=== PATIENT | male | born 1950 | race Caucasian/White ===

== ENCOUNTER 2017-04-16 11:04 | Outpatient (RCR) | payer MEDICARE, SELFPAY | END 2017-04-23 23:59 | LOC: DC 11:04 | PROVIDERS: Family Provider Family Medicine; PCP Family Medicine; Visit Provider Family Medicine | DX: E11.9 Type 2 diabetes mellitus without complications (principal); N18.9 Chronic kidney disease, unspecified; I65.29 Occlusion and stenosis of unspecified carotid artery; I10 Essential (primary) hypertension; E78.5 Hyperlipidemia, unspecified; Z71.3 Dietary counseling and surveillance | CPT/HCPCS: G0108 ==

== ENCOUNTER 2017-06-07 15:52 | Emergency (ER) | payer OTHER, MEDICARE, SELFPAY ==
[2017-06-07 15:53] VITALS: BP 172/92; PULSE 64; RESP 16; TEMP 36.1; O2SAT 99; BMI 30.7
--- NOTE | 2017-06-07 16:18 | ED.VISSUMM ---
- ER Visit Summary Date of Service: 06/07/17 Chief Complaint: Right shoulder pain History of Present Illness: The patient is a 66 M presenting with right shoulder pain. Patient states he was at a movie theater. He went to sit down in the chair and hit his right shoulder on the chair. This occurred 1 hour prior to arrival. He did not take any medications for pain. No other injuries. Physical Examination: Vitals are stable. Patient is afebrile. Alert no acute distress. HEENT exam is unremarkable. Neck is nontender Lungs are clear and equal bilaterally. Heart is regular rate and rhythm. Extremities are right anterior shoulder tenderness with AFROM, NVID Skin is warm and dry. No focal neurologic deficit. Remainder of exam is unremarkable. Emergency Department Course and Treatment: Patient was given Tylenol p.o. Right shoulder x-ray shows no acute process. Patient is advised to ice. Advised to follow-up with primary care physician. Advised return ED if worsening complaints. Disposition: Discharge home Impression: Right shoulder contusion This note was generated with [employer] dictation software. It may contain incorrect words, spelling, and punctuation that were not noted in review of the chart prior to signing ED Disposition - Plan for ED Patient: Chief Complaint: Upper Extremity Injury Referrals: Issa Trinidad MD [Primary Care Provider] -
--- NOTE | 2017-06-07 16:20 | RAD_ITS ---
STUDY: X-RAY - RIGHT SHOULDER REASON FOR EXAM: Male, 66 years old. Right-sided shoulder pain. TECHNIQUE: 2 view(s) of the shoulder. COMPARISON: Radiographs of the right shoulder dated December 09, 2016. FINDINGS: There is mild degenerative arthrosis of the glenohumeral articulation. There is hypertrophic osteoarthrosis of the acromioclavicular joint with inferior osseous spur formation. Normal acromion. There is an acromial spur. There is demineralization of the humerus and visualized osseous structures. The soft tissue structures are unremarkable. There is no demonstrated fracture. Normal visualized pulmonary apex. RAD/Shoulder min 2 Views IMPRESSION: Degenerative arthropathy of the right shoulder. Electronically Signed: Yumiko Best MD at 16:47 EDT , Service support ,
--- NOTE | 2017-06-07 16:57 | ED.DEP ---
ED Disposition - Plan for ED Patient: Chief Complaint: Upper Extremity Injury Instructions: ED Contusion Upper Ext Referrals: Issa Trinidad MD [Primary Care Provider] -
[2017-06-07 17:06] VITALS: BP 139/77; PULSE 61; RESP 15; O2SAT 97
== END 2017-06-07 17:07 | disposition home or self-care (01) ==
LOC: ED 17:02
PROVIDERS: Emergency Provider Emergency Medicine; Family Provider Family Medicine; PCP Family Medicine
DX: S40.011A Contusion of right shoulder, initial encounter (principal); W22.03XA Walked into furniture, initial encounter; Y93.89 Activity, other specified; Y92.26 Movie house or cinema as the place of occurrence of the external cause; Y99.9 Unspecified external cause status; E11.9 Type 2 diabetes mellitus without complications; I10 Essential (primary) hypertension; E78.00 Pure hypercholesterolemia, unspecified; I48.91 Unspecified atrial fibrillation
CPT/HCPCS: 73030; 99282

== ENCOUNTER 2017-06-16 10:14 | Emergency (ER) | payer OTHER, MEDICARE, SELFPAY ==
[2017-06-16 10:17] VITALS: BP 138/79; PULSE 66; RESP 17; TEMP 36.4; O2SAT 97; BMI 32.3
--- NOTE | 2017-06-16 10:42 | NURSING ---
NO LW OR POA
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
--- NOTE | 2017-06-16 10:50 | NURSING ---
NO LW OR POA
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
[2017-06-16 11:58] VITALS: PULSE 58; RESP 17; O2SAT 97
== END 2017-06-16 11:58 | disposition home or self-care (01) ==
PROVIDERS: Emergency Provider Emergency Medicine; Family Provider Family Medicine; PCP Family Medicine
DX: S39.012A Strain of muscle, fascia and tendon of lower back, initial encounter (principal); V89.2XXA Person injured in unspecified motor-vehicle accident, traffic, initial encounter; Y93.9 Activity, unspecified; Y92.488 Other paved roadways as the place of occurrence of the external cause; Y99.9 Unspecified external cause status; M25.551 Pain in right hip; E11.9 Type 2 diabetes mellitus without complications; I10 Essential (primary) hypertension; E78.00 Pure hypercholesterolemia, unspecified; F31.9 Bipolar disorder, unspecified; I48.91 Unspecified atrial fibrillation
CPT/HCPCS: 72040; 72072; 72170; 99282

== ENCOUNTER 2017-07-16 12:57 | Emergency (ER) | payer MEDICARE, SELFPAY ==
[2017-07-16 12:57] VITALS: BP 118/72; PULSE 52; RESP 16; TEMP 36.3; O2SAT 94; BMI 30.8
--- NOTE | 2017-07-16 13:53 | EKG12_ITS ---
Test Reason : WEAKNESS Blood Pressure : / mmHG Vent. Rate : 062 BPM Atrial Rate : 062 BPM P-R Int : 234 ms QRS Dur : 112 ms QT Int : 432 ms P-R-T Axes : 046 -04 103 degrees QTc Int : 438 ms Sinus rhythm with 1st degree A-V block Incomplete left bundle branch block Nonspecific ST and T wave abnormality Abnormal ECG Confirmed by GRETA JASON, CHARI ([id number]), purchase request editor TERESA BOWEN ([id number]) on 07/18/2017 1:02:20 PM Referred By: AIMEE Confirmed By:CHARI HERNANDES MD
--- NOTE | 2017-07-16 13:57 | ED.DCSUM_ITS ---
- ER Visit Summary Date of Service: 07/16/17 Chief Complaint: Generalized weakness History of Present Illness: The patient is a 66 M 3 of A. fib, insulin- dependent diabetes and hypertension. Patient states he just felt generally weak and fatigued last several days. He denies nausea, vomiting or diarrhea. He had mild constipation but had normal bowel movement today. No melena. No chest pain or shortness of breath. No abdominal pain. States he has been eating and drinking. Denies any fever. Physical Examination: Well appearing older male. Vital signs are stable afebrile. Pulse ox 94% on room air no signs of hypoxia. No distress. HEENT exam unremarkable. No facial droop. Normal speech. Neck nontender. Lungs clear to auscultation bilaterally. Heart regular rhythm rate about 50. No murmur. Abdomen soft nontender Ranulfo no giving or masses. Normal bowel sounds no peritoneal signs. Moving all 4 extremities. Neurovascularly intact. Calves nontender, no edema or cords. Neurologically he is awake and alert with no focal motor or sensory deficits. Diet score is 0. Test Results: CBC is normal. H&H of 13 and 40. BMP shows chronic renal insufficiency with a creatinine of 2. Emergency Department Course and Treatment: Clinically the patient looks good. I will check screening labs but his physical exam is unremarkable. Treatment Plan: Repeat exam patient is doing well at 1615. Will be discharged home. Disposition: Discharge Impression: Acute generalized weakness of uncertain etiology Chronic renal insufficiency This note was generated with [employer] dictation software. It may contain incorrect words, spelling, and punctuation that were not noted in review of the chart prior to signing ED Disposition - Plan for ED Patient: Chief Complaint: Weakness Referrals: Issa Trinidad MD [Primary Care Provider] -
[2017-07-16 14:46] LABS: Hematocrit 40.3 % (40-54); Mean Corp Hgb Conc 32.3 g/gl (32-36); Mean Corpuscular Hgb 32.3 pg (27.0-32.0); Mean Corpuscular Volume 100.2 fL (80-94); Mean Platelet Vol. 9.7 fl (6.2-12.0); Platelet Count 207 K/mm3 (150-450); RBC Distribution Width CV 14.1 % (11.6-14.6); RBC Distribution Width SD 51.7 fl (35.1-43.9); Red Blood Count 4.02 M/mm3 (4.6-6.2); White Blood Count 11.2 K/mm3 (4.4-11.0)
[2017-07-16 14:47] LABS: Scan Indicated on CBC? Y/N NO
[2017-07-16 14:57] LABS: Anion Gap 6 (5-15); BUN 37 mg/dL (7-18); Calcium,Total 9.5 mg/dL (8.5-10.1); Chloride 102 mmol/L (98-107); Creatinine, Serum 2.05 mg/dL (0.70-1.30); EST Glomerular Filtration Rate 34 mL/min (>60); Est Glom Filt Rate - Afr Amer 42 mL/min (>60); Estimated Creatinine Clearance 35.61 ml/min; Glucose 185 mg/dL (74-106); Potassium 4.3 mmol/L (3.5-5.1); Sodium Level 137 mmol/L (136-145)
[2017-07-16 16:01] VITALS: BP 153/88; PULSE 64; RESP 18; O2SAT 95
--- NOTE | 2017-07-16 16:19 | ED.DEP ---
ED Disposition - Plan for ED Patient: Disposition: Home or Assisted Living Chief Complaint: Weakness Instructions: ED Weakness [facility] Referrals: Issa Trinidad MD [Primary Care Provider] - 3-5 Days if not improving
[2017-07-16 16:24] VITALS: BP 121/74; PULSE 67; RESP 15; O2SAT 98
== END 2017-07-16 16:25 | disposition home or self-care (01) ==
PROVIDERS: Emergency Provider Emergency Medicine; Family Provider Family Medicine; PCP Family Medicine
DX: R53.1 Weakness (principal); E11.9 Type 2 diabetes mellitus without complications; I12.9 Hypertensive chronic kidney disease with stage 1 through stage 4 chronic kidney disease, or unspecified chronic kidney disease; N18.9 Chronic kidney disease, unspecified; I48.91 Unspecified atrial fibrillation; Z79.4 Long term (current) use of insulin
CPT/HCPCS: 80048; 85027; 93005; 99283; A4216

== ENCOUNTER 2017-09-01 14:07 | Outpatient (RCR) | payer MEDICARE, MEDICAID, SELFPAY ==
--- NOTE | 2017-09-01 14:07 | DT_ITS ---
This patient was seen during an EMR downtime August 25, 2017 - September 01, 2017. This patient may have a combination of paper and electronic documentation or all paper documentation. All documentation is viewable within the e-chart portion of [facility] for each patient visit.
== END 2017-09-11 23:59 ==
LOC: DC 14:07
PROVIDERS: Family Provider Family Medicine; PCP Family Medicine; Visit Provider Nurse Practitioner Family
DX: E11.9 Type 2 diabetes mellitus without complications (principal); Z71.3 Dietary counseling and surveillance
CPT/HCPCS: 97802; G0108

== ENCOUNTER 2017-09-16 15:50 | Emergency (ER) | payer MEDICARE, MEDICAID, SELFPAY ==
[2017-09-16 15:50] VITALS: BP 132/81; PULSE 76; RESP 16; TEMP 36.3; O2SAT 94; BMI 33.4
--- NOTE | 2017-09-16 16:20 | ED.VISSUMM ---
- ER Visit Summary Date of Service: 09/16/17 Chief Complaint: Fall History of Present Illness: The patient is a 66 M with a mechanical fall about 4 hours ago. He fell backwards he hit the back of his head, however first he hit his back. No loss consciousness no bruising no scalp laceration. He has no neck pain. He has no neurological symptoms or weakness. Physical Examination: Not appear in acute distress. Moist mucous membranes, no obvious facial deformity No C-spine tenderness supple neck. Regular rate and rhythm without any obvious murmurs Clear lungs bilaterally speaking in full sentences without any obvious respiratory distress Abdomen soft and nontender no guarding or rebound Moves all extremities without any difficulty or pain. Skin does not show any obvious rashes or lesions, no trauma. Alert oriented ?3 with no gross focal deficit. He does have a shuffled gait which is chronic. He walks with a cane. Emergency Department Course and Treatment: Patient appears well. He did not have loss consciousness, he has a normal neurological exam I do not think any imaging is needed at this time. He is under close observation at home. If he worsens he will be brought back in. Disposition: Discharge in stable condition Impression: Closed head injury This note was generated with [employer] dictation software. It may contain incorrect words, spelling, and punctuation that were not noted in review of the chart prior to signing ED Disposition - Plan for ED Patient: Disposition: Home or Assisted Living Chief Complaint: Fall Instructions: ED Mechanical Fall Referrals: Issa Trinidad MD [Primary Care Provider] -
--- NOTE | 2017-09-16 16:52 | NURSING ---
sister called in whos poa and concerned over pt freq falling and dementia. cm aware and will be in to offer support.
[2017-09-16] MEDS: Acetaminophen 325 MG Tablet 650 MG PO (17:27)
--- NOTE | 2017-09-16 17:45 | CM.ED ---
Addendum entered by Dottie Whitaker 09/17/17 10:28: Patient's [id number], Jeffrey Cardoso, offers his contact information: [phone] (cell phone). Original Note: CM INITIAL ASSESSMENT: CM referred to discuss DME and safe discharge planning with patient and family. Patient's [id number], Jeffrey Cardoso, is at bedside to assist with answering questions. Home: Patient lives with his sister, Em Rose. They lives in a three story home. He has first floor setup. He denies problems with stairs, although his visitor states he slipped down stairs the other day. HHS/Aides: Patient states he had outpatient therapy and felt he was getting stronger. He states this was cancelled though. Patient states he does not drive. His sister usually drives him; however, she is now incapacitated and unable to drive him. Patient is agreeable to home health care referral, with [facility]. DME: Patient states he uses a cane. He fell today. Patient's [id number], Jeffrey Cardoso, states he feels the patient is unsteady and would benefit from a walker. [employer] script, [id number] completed and faxed. Encouraged patient and family that a shower chair may also be of benefit. Home Oxygen: Denies. Pharmacy: [facility] Advance Directives: Patient states he does have advance directives. He states his medical POA is his younger sister, Em Rose. This has not been verified. PCP: Issa Trinidad - Patient states he has a scheduled appointment to see PCP tomorrow. Specialists: Patient states he has bipolar disorder and is a patient at the counseling center. His residential case manager at the counseling center is Mr. Thurman. DC Plan: Home with walker and PT/OT through [facility]. CM will continue to follow for safe and effective discharge planning.
--- NOTE | 2017-09-17 09:41 | CM.ED ---
LIZ INITIAL ASSESSMENT: Home: Patient lives HHS/Aides: DME: Home Oxygen: Pharmacy: [facility] Directives: PCP: Specialists: DC Plan: CM will continue to follow for safe and effective discharge planning.
--- NOTE | 2017-09-17 10:37 | CM.ED ---
Call placed to patient. Patient states he does have his walker and is using it. He notified that [facility] will be in contact with him today. Patient states he is leaving soon for his appointment with Dr. Trinidad. Call placed to Jeffrey Cardoso, patient's [id number]. Voicemail left with updates. Call placed to patient's sister, Ann Marie Cardoso. No answer and voicemail box full. Taylor, from [facility], updated.
== END 2017-09-16 17:45 | disposition home or self-care (01) ==
PROVIDERS: Emergency Provider Emergency Medicine; Family Provider Family Medicine; PCP Family Medicine
DX: S09.90XA Unspecified injury of head, initial encounter (principal); W17.89XA Other fall from one level to another, initial encounter; Y93.9 Activity, unspecified; Y92.89 Other specified places as the place of occurrence of the external cause; Y99.9 Unspecified external cause status; E11.9 Type 2 diabetes mellitus without complications; F20.9 Schizophrenia, unspecified; F31.9 Bipolar disorder, unspecified
CPT/HCPCS: 99281

== ENCOUNTER 2017-10-02 09:14 | Emergency (ER) | payer MEDICARE, MEDICAID, SELFPAY ==
[2017-10-02 09:15] VITALS: BP 152/93; PULSE 58; RESP 16; TEMP 36.7; BMI 30.9
[2017-10-02 10:16] VITALS: BP 128/70; PULSE 57; RESP 13; O2SAT 92
--- NOTE | 2017-10-02 10:47 | ED.DCSUM_ITS ---
- ER Visit Summary Date of Service: 10/02/17 Chief Complaint: Fall History of Present Illness: The patient is a 66 M with a fall just prior to arrival. He has had more falls recently. He is being taken care of by his sister at home. She tells me she could not pick them up. She did not witness the episode but patient is a good historian there are no injuries. He denies head injury, loss of consciousness. I saw the patient for similar symptoms last time he was here. Physical Examination: Not appear in acute distress. Moist mucous membranes, no obvious facial deformity No C-spine tenderness supple neck. Regular rate and rhythm without any obvious murmurs Clear lungs bilaterally speaking in full sentences without any obvious respiratory distress Abdomen soft and nontender no guarding or rebound Moves all extremities without any difficulty or pain. Skin does not show any obvious rashes or lesions, no trauma. Alert oriented ?3 with no gross focal deficit Emergency Department Course and Treatment: Patient was monitored in the emergency department and he ambulated well Sister wants to take him home, apparently they met with the neurologist last week and have MRI scheduled in a few days. Patient did say that he will use his walker which he did not today and will be more careful. Disposition: Discharge in stable condition Impression: Mechanical fall This note was generated with [employer] dictation software. It may contain incorrect words, spelling, and punctuation that were not noted in review of the chart prior to signing ED Disposition - Plan for ED Patient: Disposition: Home or Assisted Living Chief Complaint: Fall Instructions: ED Mechanical Fall Referrals: Issa Trinidad MD [Primary Care Provider] - 2 Days
--- NOTE | 2017-10-02 10:48 | ED.DCSUM_ITS ---
- ER Visit Summary Date of Service: 10/02/17 Chief Complaint: [] History of Present Illness: The patient is a 66 M [] Physical Examination: [] Test Results: [] Emergency Department Course and Treatment: [] Treatment Plan: [] Disposition: [] Impression: [] This note was generated with [employer] dictation software. It may contain incorrect words, spelling, and punctuation that were not noted in review of the chart prior to signing ED Disposition - Plan for ED Patient: Disposition: Home or Assisted Living Chief Complaint: Fall Instructions: ED Mechanical Fall Referrals: Issa Trinidad MD [Primary Care Provider] - 2 Days
[2017-10-02 10:52] VITALS: BP 144/76; PULSE 63; RESP 18
== END 2017-10-02 10:53 | disposition home or self-care (01) ==
PROVIDERS: Emergency Provider Emergency Medicine; Family Provider Family Medicine; PCP Family Medicine
DX: Z04.3 Encounter for examination and observation following other accident (principal); W01.0XXA Fall on same level from slipping, tripping and stumbling without subsequent striking against object, initial encounter; Y93.9 Activity, unspecified; Y92.89 Other specified places as the place of occurrence of the external cause; Y99.9 Unspecified external cause status; E11.9 Type 2 diabetes mellitus without complications; F31.9 Bipolar disorder, unspecified; F20.9 Schizophrenia, unspecified
CPT/HCPCS: 99284

== ENCOUNTER 2017-11-19 01:48 | Inpatient (IN) | payer MEDICARE, MEDICAID, SELFPAY ==
[2017-11-19] VITALS (29 sets, daily range): BP systolic 111–202; BP diastolic 52–112; PULSE 59–85; RESP 10–24; TEMP 36.4–36.8; O2SAT 91–100; BMI 32.1; BMI 31.8; BMI 31.9
--- NOTE | 2017-11-19 01:59 | ED.VISSUMM ---
- ER Visit Summary Date of Service: 11/19/17 Chief Complaint: Chest pain History of Present Illness: The patient is a 66 M who presents with 4 days of anterior chest pain. Patient states he came to the emergency room tonight because he could not get the pain to go away. He been trying to rub some creams on his chest or using a hot water bottle. He was seen by a nurse practitioner at his PCPs office today. Patient states they listen to his heart but did not do an EKG. History significant for diabetes, hypertension, high cholesterol, A. fib, bipolar disorder, TBI. Patient is not currently on anticoagulants. Physical Examination: Vital signs on arrival include a blood pressure of 201/110, temperature 97.7, heart rate 78, respiratory rate 24, pulse ox 95% on room air. Patient sitting upright in bed. He appears uncomfortable but he is in no acute distress. Heart is regular rate and rhythm. Lung sounds are clear. Abdomen is soft and nontender. Extremity examination reveals strong distal pulses throughout. Test Results: EKG reveals sinus rhythm at [address] elevation and inferior depression consistent with an acute anterior STEMI. Emergency Department Course and Treatment: STEMI alert was called. Labs are currently pending at this time. Patient has received aspirin, Brilinta, heparin. Due to his elevated blood pressure he was given sublingual nitroglycerin. I spoke with Dr. Nguyen and It Application Administrator team is en route. Treatment Plan: [] Disposition: Admit Impression: Acute anterior STEMI This note was generated with [employer] dictation software. It may contain incorrect words, spelling, and punctuation that were not noted in review of the chart prior to signing ED Disposition - Plan for ED Patient: Chief Complaint: Chest Pain Referrals: Issa Trinidad MD [Primary Care Provider] -
[2017-11-19] MEDS: 0.9% Normal Saline 1,000 ML 150 ML IV ×2 (02:01→04:00)
[2017-11-19] MEDS: Aspirin 81 MG TAB.CHEW 324 MG PO (02:02)
[2017-11-19] MEDS: Heparin Injection (Vial) 5,000 UNIT/ML VIAL 4000 UNIT IV (02:03)
[2017-11-19] MEDS: TICAGRELOR 90 MG TABLET 180 MG PO (02:03)
--- NOTE | 2017-11-19 02:03 | ED.RN ---
PT SISTER RISHI PHONE NUMBER [phone]. RISHI CONTACTED AND INFORMED OF PT STATUS BY PT REQUEST.
--- NOTE | 2017-11-19 02:05 | PCM.HP.STD ---
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 Range 58-200+ He does have a pattern of waking with low Bg. Will reduce his pm lantus today and have him call back office with any further low BG. Reports taking insulin as directed as well as his oral agents. Is due for labs and I have ask him to do these today or tomorrow. BP recheck 134/76 (3) Bipolar disorder Status: Chronic Qualifiers: Active/Remission status: remission status unspecified Qualified Code(s): F31.9 - Bipolar disorder, unspecified (4) Atrial fibrillation Status: Suspected Qualifiers: Atrial fibrillation type: paroxysmal Qualified Code(s): I48.0 - Paroxysmal atrial fibrillation (5) Hyperlipidemia Status: Chronic Qualifiers: Hyperlipidemia type: pure hypercholesterolemia Qualified Code(s): E78.00 - Pure hypercholesterolemia, unspecified; E78.0 - Pure hypercholesterolemia (6) Neuropathy Status: Chronic (7) Hypertension Status: Chronic Qualifiers: Hypertension type: essential hypertension Qualified Code(s): I10 - Essential (primary) hypertension (8) Gout Status: Chronic Qualifiers: Gout site: unspecified site Gout etiology: unspecified cause Chronicity: unspecified Qualified Code(s): M10.9 - Gout, unspecified (9) Traumatic brain injury Status: Chronic (10) Arthritis Status: Chronic History of Present Illness Date of Admission: 11/19/17 Chief Complaint: Chest pain The patient is a 66 y/o M w/ PMHx: PAF previously on coumadin, Hypothyroidism, HTN, HLD, Obesity, Fe Deficiency Anemia, Diabetes mellitus type II, Bipolar Disorder/Schizophrenia, Hx TBI who presents to the [facility] ED on 11/19/17 with history of onset 4.5 days prior substernal chest tightness, pressure and squeezing sensation without radiation with associated dyspnea, noted to be constant, rated currently 10/10 prompting eventual ED presentation. In the ED work-up included T 97.7, heart rate 80, BP 202/109, respiratory rate 24, 95% on room air, pending CBC, coags, BMP, troponin, EKG with evidence of an anterior STEMI, chest x-ray pending. Cardiology immediately consulted given STEMI findings with decision for administration of Brilinta load, heparin bolus, aspirin therapy with plan to transition to the cardiac catheterization lab. Cardiology requested sublingual nitroglycerin administration given elevated blood pressure with possible need for transition to drip pending repeat blood pressure assessments. Past Medical History Past Medical History (Chronic Problems): Chronic Problems (Last Reviewed 03/25/17 @ 14:24 by Scarlett Wharton) Diabetes mellitus, type II (Chronic) BG readings checked at various times of day. Range 58-200+ He does have a pattern of waking with low Bg. Will reduce his pm lantus today and have him call back office with any further low BG. Reports taking insulin as directed as well as his oral agents. Is due for labs and I have ask him to do these today or tomorrow. BP recheck 134/76 Bipolar disorder (Chronic) Hyperlipidemia (Chronic) Neuropathy (Chronic) Hypertension (Chronic) Gout (Chronic) Traumatic brain injury (Chronic) Arthritis (Chronic) Medical History: Medical History (Last Reviewed 03/25/17 @ 14:24 by Scarlett Wharton) Afib I48.91 Anxiety F41.9 Arthritis M19.90 Back problem M53.9 Cataracts, bilateral H26.9 Depression F32.9 Diabetes type 2, controlled E11.9 GI problem R19.8 Headache R51 Heart disease I51.9 High cholesterol E78.00 Kidney disease N28.9 Osteoarthritis M19.90 Recurrent UTI N39.0 Seasonal allergies J30.2 HTN (hypertension) I10 Allergies atorvastatin [From Lipitor] Allergy (Verified 09/16/17 15:54) Unknown Penicillins Allergy (Verified 09/16/17 15:54) Unknown codeine Adverse Reaction (Verified 09/16/17 15:54) Upset Stomach doxycycline Adverse Reaction (Verified 09/16/17 15:54) Other LYCOPEEN Adverse Reaction (Uncoded 09/16/17 15:54) Other 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 Adverse Reaction (Uncoded 09/16/17 15:54) Rash Home Medications: Ambulatory Orders Medication Instructions Recorded Divalproex Sodium [Depakote] 1,500 mg PO BID 01/11/13 Glimepiride [Glimepiride] 2 mg PO DAILY 01/21/16 Allopurinol [Zyloprim] 300 mg PO DAILY 04/09/16 Amlodipine [Norvasc] 10 mg PO DAILY 04/09/16 Esomeprazole Magnesium [Nexium 20 mg PO DAILY 04/09/16 24Hr] Ferrous Sulfate [Iron] 325 mg PO DAILY 04/09/16 Flecainide [Tambocor] 150 mg PO DAILY 04/09/16 Gabapentin [Neurontin] 900 mg PO DAILY 04/09/16 Losartan Potassium [Cozaar] 50 mg PO QHS 04/09/16 Meloxicam [Mobic] 15 mg PO DAILY 04/09/16 Levothyroxine [Synthroid] 100 mcg PO DAILY 09/07/16 Metoprolol Succinate 25 mg PO DAILY 09/07/16 Multivitamin [Daily Multiple 1 tab PO DAILY 09/07/16 Vitamin] Oxybutynin [Ditropan] 5 mg PO DAILY 09/07/16 aspirin 81 mg tablet,delayed 81 mg PO QDAY 02/27/17 release betamethasone dipropionate 0.05 % 1 applic TOPICAL BID 02/27/17 lotion clindamycin phosphate 1 % topical 1 applic TOPICAL BID 02/27/17 swab diclofenac 1 % topical gel 2 g TOPICAL TID g 02/27/17 dulaglutide 0.75 mg/0.5 mL 0.75 mg SC QWEEK 02/27/17 subcutaneous pen injector fluticasone 50 mcg/actuation nasal 2 spray INTRANASAL QDAY 02/27/17 spray,suspension insulin detemir (U-100) 100 40 unit SC BID ml 02/27/17 unit/mL (3 mL) subcutaneous pen metformin 500 mg tablet 500 mg PO BID tab 02/27/17 nitroglycerin 0.4 mg sublingual 0.4 mg SUBLINGUAL Q5M PRN 02/27/17 tablet oxcarbazepine 300 mg tablet 300 mg PO BID 02/27/17 polyethylene glycol 3350 17 17 g PO QDAY PRN 02/27/17 gram/dose oral powder tizanidine 2 mg capsule 2 mg PO Q6H PRN cap 02/27/17 tramadol 50 mg tablet 50 mg PO Q8H PRN tab 02/27/17 triamcinolone acetonide 0.1 % 1 applic TOPICAL TID 02/27/17 topical cream Surgical History: - - Cardiac catheterization, T+A, R cataract, L shoulder surgery, R TKR. Psychiatric History: Bipolar, Schizophrenia Lives: With Family Smoking Status: Never smoker Tobacco Use: Non-smoker Alcohol: None Drugs: None - *Family History Maternal Family History: Family History (Last Reviewed 03/25/17 @ 14:24 by Scarlett Wharton) Father Arthritis Bleeding disorder Heart disease Hypertension Mother Hypertension History Items: - - Mother with a history of hypertension. Paternal Family History: Family History (Last Reviewed 03/25/17 @ 14:24 by Scarlett Wharton) Father Arthritis Bleeding disorder Heart disease Hypertension Mother Hypertension History Items: - - Father with a history of heart disease, coronary disease status post CABG ?2. Review of Systems Constitutional: Reports: Malaise, Weakness, Fatigue. Denies: Chills, Fever HEENT: Denies: Head Aches, Sinus Congestion, Sinus Drainage Cardiovascular: Reports: Chest Pain, Chest Pressure, Chest Tightness, Heaviness. Denies: Edema, Light Headedness, Orthopnea, Palpitations, Syncope Respiratory: Reports: Shortness of Breath. Denies: Cough, Shortness of breath at rest, Shortness of breath upon exertion, Sputum production, Wheezing Gastrointestinal: Denies: Abdominal Pain, Nausea, Vomiting Genitourinary: Denies: Dysuria Musculoskeletal: Reports: Back Pain. Denies: Joint Pain, Joint Tenderness Skin: Denies: Rash, Wounds Neurological: Denies: Numbness, Tingling, Focal weakness Psychiatric: Reports: Anxiety, Depression. Denies: Homicidal Ideations, Suicidal Ideations Hematologic/ Lymphatic: Reports: Anemia. Denies: Easy Bruising, Easy Bleeding VTE Information - Inpt Only VTE Present on Admission: No VTE Mechan Device Prophylaxis: SCD's VTE Pharm Prophylaxis ordered?: Yes Patient Problems: Active and Suspected Problems (Last Reviewed 03/25/17 @ 14:24 by Scarlett Wharton) STEMI (ST elevation myocardial infarction) (Acute) Anterior STEMI Subjective: Seated upright in the ED bed, uncomfortable appearing, anxious. Objective: Physical Examination: General: awake, alert, oriented x 3 and cooperative, seated upright in the ED bed, uncomfortable appearing. Skin: normal color, turgor, no icterus, cyanosis. HEENT: AT/NC, EOMI, PERRLA, moderately dry MM, no carotid bruits or JVD noted. Lungs: Diminished breath sounds bilateral bases, moderate effort, no rales, ronchi or wheezing. Heart: Regular rate and rhythm; no gallop, rub audible. Abdomen: soft, obese, NTTP, ND, normal BS, no HSM. Extremities: no cyanosis, clubbing, or edema. Neurological: patient awake, alert, oriented x 3; cognitive function intact; pupils equally reactive to light and accomodation; cranial nerves II-XII grossly normal, moving all 4 extremities, no focal deficits, strength moderately to severely decreased secondary to acute presentation. Psychiatric: affect appears fatigued, mildly anxious, no acute evidence of depressive feelings. - Physical Exam Vital Signs Temp Pulse Resp BP Pulse Ox 97.7 F L 78 24 H 201/110 H 95 11/19/17 01:49 11/19/17 02:04 11/19/17 01:53 11/19/17 02:04 11/19/17 01:49 Oxygen Delivery Method Room Air Weight: 217 lb 2.485 oz Body Mass Index (BMI) 32.1 Finger Stick Blood Glucose 152 Assessment/Plan All Active Problems (Last Reviewed 03/25/17 @ 14:24 by Scarlett Wharton) STEMI (ST elevation myocardial infarction) (Acute) Scalp laceration (Acute) Cellulitis (Acute) Change in mental status (Acute) The patient is a 66 y/o M w/ PMHx: PAF previously on coumadin, Hypothyroidism, HTN, HLD, Obesity, Fe Deficiency Anemia, Diabetes mellitus type II, Bipolar Disorder/Schizophrenia, Hx TBI who presents to the [facility] ED on 11/19/17 with history of onset 4.5 days prior substernal chest tightness, pressure and squeezing sensation without radiation with associated dyspnea, noted to be constant, rated currently 10/10 prompting eventual ED presentation. (1) Chest Pain w/ Acute Anterior STEMI: EKG in ED w/ evidence STEMI, CXR and admission labs as well as cardiac enzyme pending upon admission. Planned transition from ED to cardiac catheterization lab and following ICU admission if appropriate. Will maintain on a monitored bed, continue serial cardiac enzymes and EKGs. Obtain magnesium level upon admission. Continue medical management w/ asa, brillinta, BB, ARB with BP regimen adjustments per Cardiology discretion, consider addition statin as vague allergy noted w/ AM FLP. ASA, NG, morphine. (2) Hypertensive Emergency: NSTEMI w/ severely elevated BP in the ED. Cardiology requested NG administration, continue to follow. May require NG drip. If improved would otherwise plan to continue home regimen including Norvasc, Losartan, metoprolol with dosage changes per cardiology discretion, losartan, PRN hydralazine. (3) Hyperlipidemia: Noted statin allergy prior, unclear action, consider re-addition high-dose statin, FLP in AM. (4) Diabetes mellitus type II w/ Neuropathy: Hold oral home regimen, continue home insulin regimen, NPO status currently but transition to ADA diet once transitioned to ICU and cleared per Cardiology, accu checks w/ ISS, continue home neurontin and oxcarbazepine regimen. (5) PAF: Maintain on home regimen metoprolol, tambocor, not on anticoagulation currently, was on coumadin prior. (6) Obesity: Weight loss and lifestyle changes encouraged. (7) Fe Deficiency Anemia: CBC pending, continue Fe supplementation. (8) Bipolar Disorder/Schizophrenia: Maintain on home regimen (9) Hypothyroidism: Continue home synthroid regimen. (10) Hx TBI: Mild MRDD suspected, unclear if from trauma. Unclear if possible seizure history, on oxcarbazepine but could be for his neuropathy. (11) GERD: PPI. (12) DVT prophylaxis: SCDs, heparin IV bolus in the ED. Code Visit Inpatient E&M: 41355 Init Hosp L3
[2017-11-19 02:06] LABS: Bedside Glucose 244 mg/dL (70-110)
[2017-11-19 02:11] LABS: Absolute Lymphocyte Count 2.61 X10^3/ul (0.83-4.51); Absolute Neutrophil Count 5.3 X10^3/uL (2.0-7.7); Basophil# 0.03 X10^3/uL; Basophil% 0.3 % (0-1); Differential Indicated SCAN CRITERIA MET; Eosinophil# 0.27 X10^3/uL; Eosinophils% 2.7 % (0-5); Hematocrit 40.5 % (40-54); Lymphocyte # 2.61 X10^3/ul (4.0); Lymphocyte % 26.6 % (19-41); Mean Corp Hgb Conc 32.1 g/gl (32-36); Mean Corpuscular Hgb 32.3 pg (27.0-32.0); Mean Corpuscular Volume 100.5 fL (80-94); Mean Platelet Vol. 10.2 fl (6.2-12.0); Monocyte# 1.63 X10^3/uL; Monocyte% 16.6 % (0-10); Neutrophil # 5.25 X10^3/uL (2.7-7.7); Neutrophil % 53.5 % (47-70); POSITIVE COUNT NO; POSITIVE DIFFERENTIAL YES; POSITIVE MORPHOLOGY YES; Platelet Count 255 K/mm3 (150-450); RBC Distribution Width CV 13.7 % (11.6-14.6); RBC Distribution Width SD 50.4 fl (35.1-43.9); Red Blood Count 4.03 M/mm3 (4.6-6.2); White Blood Count 9.8 K/mm3 (4.4-11.0)
[2017-11-19 02:15] LABS: International Normalized Ratio 0.9; Prothrombin Time (Protime)PT. 12.4 SECONDS (11.7-14.9)
[2017-11-19 02:16] LABS: Partial Thromboplast Time 26.2 Seconds (24.1-36.2)
[2017-11-19 02:28] LABS: Anion Gap 9 (5-15); BUN 33 mg/dL (7-18); BUN/Creat Ratio 15.6 RATIO (10-20); Calcium,Total 9.6 mg/dL (8.5-10.1); Chloride 104 mmol/L (98-107); Creatinine, Serum 2.11 mg/dL (0.70-1.30); EST Glomerular Filtration Rate 33 mL/min (>60); Est Glom Filt Rate - Afr Amer 40 mL/min (>60); Estimated Creatinine Clearance 33.51 ml/min; Glucose 238 mg/dL (74-106); Potassium 4.6 mmol/L (3.5-5.1); Sodium Level 140 mmol/L (136-145)
[2017-11-19 03:16] LABS: ACT Activated Clotting Time 147 sec (74-137)
[2017-11-19 03:16] LABS: ACT Activated Clotting Time 202 sec (74-137)
[2017-11-19 05:36] LABS: ALB/GLOB Ratio 0.7 RATIO (0.9-2.4); AST(SGOT) 53 U/L (15-37); Alanine Aminotransfer ALT/SGPT 36 U/L (16-61); Albumin, Serum 2.8 g/dL (3.2-5.0); Alkaline Phosphatase 84 U/L (45-117); Anion Gap 11 (5-15); BUN 32 mg/dL (7-18); BUN/Creat Ratio 15.8 RATIO (10-20); Calcium,Total 9.1 mg/dL (8.5-10.1); Chloride 107 mmol/L (98-107); Cholesterol 193 mg/dL (200); Creatinine, Serum 2.02 mg/dL (0.70-1.30); EST Glomerular Filtration Rate 35 mL/min (>60); Est Glom Filt Rate - Afr Amer 42 mL/min (>60); Estimated Creatinine Clearance 36.14 ml/min; Glucose 248 mg/dL (74-106); High Density Lipoprotein 37 mg/dL; Protein, Total 6.8 g/dL (6.4-8.2); Sodium Level 142 mmol/L (136-145); Triglycerides 196 mg/dL; Very Low Density Lipoprotein 39 mg/dL (5-40)
[2017-11-19 05:49] LABS: Hemoglobin A1c 7.2 % (4.2-6.3)
[2017-11-19] MEDS: Levothyroxine 100 MCG Tablet PO (06:04)
[2017-11-19] MEDS: Acetaminophen 325 MG Tablet 650 MG PO ×2 (06:07→15:07)
[2017-11-19] MEDS: Carvedilol 6.25 MG Tablet PO ×2 (06:54→10:34)
[2017-11-19 06:55] LABS: Bedside Glucose 264 mg/dL (70-110)
[2017-11-19] MEDS: amLODIPine 10 MG Tablet PO (06:55)
[2017-11-19] MEDS: hydrALAZINE 10 MG Tablet PO (07:07)
--- NOTE | 2017-11-19 07:56 | PCM.PN.CARD ---
Subjectve: Patient doing well this morning, still complains of some mild chest pain, markedly improved. Right groin is clean/dry/intact without evidence of thrills, bruits or hematoma. EKG shows normal sinus rhythm with resolving anteroseptal wall ST elevation myocardial infarction. Echocardiogram pending. Nitroglycerin infusing. Objective: Vital Signs Temp Pulse Resp BP Pulse Ox 98.2 F 73 21 H 168/104 H 97 11/19/17 05:00 11/19/17 07:07 11/19/17 07:00 11/19/17 07:07 11/19/17 07:00 Oxygen Delivery Method Room Air Weight: 222 lb 3.615 oz Body Mass Index (BMI) 31.8 Intake and Output for Last 24 Hours 11/17/17 11/18/17 11/19/17 23:59 23:59 23:59 Intake Total 1188 / 1188 Output Total 400 / 400 Balance 788 / 788 General: Awake, Alert, Oriented x 3 HEENT: PERRL, EOMI, Sclera Non Icteric Neck: Supple, Good ROM, No Lymph Node Enlargement Lungs: Clear to auscultation Cardiovascular: Regular Rhythm, Normal S1, Normal S2, No Murmurs, No Rubs, No Gallops Vascular: No Carotid Bruits, Normal Femoral Pulses, Normal Radial Pulses, Normal Dorsalis Pedal Pulse, Normal Posterior Tibial Pulses Abdomen: Bowel Sounds Present, Soft, Non Tender, No HSM, No Organomegaly Extremities: No Cyanosis, No Clubbing, No edema Neurological: No Focal Motor or Sensory Deficit 11/19/17 04:50: Hemoglobin A1c 7.2 H 11/19/17 04:50: Sodium 142, Potassium 5.0, Chloride 107, Carbon Dioxide 24.0, Anion Gap 11, BUN 32 H, Creatinine 2.02 H, Est GFR (MDRD) Af Amer 42 L, Est GFR (MDRD) Non-Af 35 L, BUN/Creatinine Ratio 15.8, Glucose 248 H, Calcium 9.1, Magnesium 2.0, Total Bilirubin 0.10 L, Triglycerides 196, Cholesterol 193, LDL Cholesterol 117, VLDL Cholesterol 39, HDL Cholesterol 37 L 11/19/17 04:50: Troponin I 8.160 H* Rhythm: EKG: ECHO: Pending Stress Test: Cardiac Cath: PCI: CT Surgery: Holter monitor: EPS: PPM: CXR: Chest CT Scan: Medical Necessity - Tobacco Use Smoking Status: Never smoker Tobacco Use: Non-smoker Assessment/Plan #1. Coronary artery disease: The patient presents with 4 day history of intermittent substernal chest pain, culminating in severe chest pain last evening where he sought medical attention at [facility] ER and EKG demonstrated acute anteroseptal wall myocardial infarction. STEMI team was activated, the patient had emergent angioplasty and stenting of his mid LAD receiving a 2.5X 20 Promus Synergy stent with an excellent result. He has minimal nonobstructive disease of his proximal LAD, circumflex and RCA. His EF was intact at about 50% with some mild mid anterior hypokinesis. Patient was hypertensive at the end of procedure and received a minx closure device as well as start a nitroglycerin drip. At this point I would continue aspirin, Brilinta, and switch him to Coreg 6.25 mg p.o. twice daily starting this morning and titrating up to get his nitroglycerin drip discontinued. Patient has a creatinine of 2.11, and was on losartan at home. With respect to his renal insufficiency and recent dye load, we will hold his losartan until this evening. He will continue amlodipine. We will give him hydralazine 10 mg IV ?1 now to facilitate reducing his nitroglycerin drip. The patient does not require any additional stress testing to evaluate his left circumflex or RCA. Echocardiogram is pending. 2. Hyperlipidemia: Patient claims that he was on Lipitor in the past, but cannot recall why was discontinued. He declined that he had myalgias or GI upset. We will try Lipitor again 80 mg's p.o. nightly and repeat lipid profile in 6 weeks time. Should the patient have myalgias he may benefit from either vitamin D or switching him to gemfibrozil. 3. Bipolar disorder: Patient has baseline known bipolar disorder, and will continue his treatment. I believe the patient will be able to do cardiac rehab but will know more once he is able to get out of bed. 4. Thank you very much for the opportunity to participate in the cardiac care of your patient. Code Visit Inpatient E&M: 01700 Subs Hosp L2
[2017-11-19] MEDS: Allopurinol 300 MG Tablet PO (08:08)
[2017-11-19] MEDS: Ferrous Sulfate 325 MG Tablet PO (08:08)
[2017-11-19] MEDS: Insulin Lispro 100 UNIT/ML INSULN.PEN SC ×4 (08:14→20:58)
[2017-11-19 08:30] LABS: Hematocrit 36.1 % (40-54); Hemoglobin 11.6 g/dl (13.0-16.5); Mean Corp Hgb Conc 32.1 g/gl (32-36); Mean Corpuscular Volume 99.7 fL (80-94); Mean Platelet Vol. 10.3 fl (6.2-12.0); Platelet Count 233 K/mm3 (150-450); RBC Distribution Width CV 13.6 % (11.6-14.6); RBC Distribution Width SD 48.9 fl (35.1-43.9); Red Blood Count 3.62 M/mm3 (4.6-6.2)
[2017-11-19 08:31] LABS: Scan Indicated on CBC? Y/N NO
--- NOTE | 2017-11-19 09:25 | CASEMGMT ---
SW participated in ICU rounds today. Pt states lives w/his younger sister, and has for the last 20 years. Pt states he does not drive any more, but his younger and older sister do, as does her older sister's . Pt indicated that they can take him, though at times transportation may be difficult. Pt also reports has fallen 10 times since the beginning of the year. Pt states had home health, and then was going to go to [facility] for outpt PT. Pt is not certain what he should do, have home health again or outpt PT. Randi, nurse fraud manager, suggested possibly a CCN referral as well as a referral to [facility] for outpt PT if pt is able, with van transport. SW introduced self and role of SW/CM to pt, explained that SW or CM will be back to speak w/pt. VIC Rogers, [employer]
[2017-11-19] MEDS: OXcarbazepine 300 MG Tablet PO ×2 (09:33→20:49)
[2017-11-19] MEDS: Pantoprazole Sodium 20 MG Tablet PO (09:33)
[2017-11-19] MEDS: TICAGRELOR 90 MG TABLET PO ×2 (09:33→20:49)
[2017-11-19] MEDS: Divalproex Sodium 250 MG Tablet 1500 MG PO ×2 (09:33→20:49)
[2017-11-19] MEDS: Flecainide 150 MG Tablet PO (09:33)
--- NOTE | 2017-11-19 09:33 | CRPHASE1 ---
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 Psychiatric:: Chito Nguyen Phase I Charge:: Level I - Education Risk Factors/Lifestyle Smoking Status: Never smoker Hx Hypertension: Yes - ON MEDS Hx Diabetes Mellitus Type 2: Yes Hx Metabolic Disorders: Yes - AIC 7.1 Hx Dyslipidemia: Yes Hx Obesity: Yes Height: 1.78 m Weight:: 100.698 kg BMI: 31.8 Stress: Long-standing ETOH: No Substance Abuse: No Risk Factor for Sedentary Lifestyle: Moderate Risk Family History: Family History (Last Reviewed 03/25/17 @ 14:24 by Scarlett Wharton) Father Arthritis Bleeding disorder Heart disease Hypertension Mother Hypertension Laboratory Values: Cardiac Rehab Phase I Labs Hemoglobin A1c 7.2 % (4.2-6.3) H 11/19/17 04:50 Triglycerides 196 mg/dL (-199) 11/19/17 04:50 Cholesterol 193 mg/dL (200) 11/19/17 04:50 LDL Cholesterol 117 mg/dL (0-130) 11/19/17 04:50 HDL Cholesterol 37 mg/dL (40-) L 11/19/17 04:50 Phase I Education Given On:: [place], Nutrition, Antiplatelet medication, Diabetes - Type II Issues Affecting Care:: Cognitive, Emotional, Social Knowledge of Condition:: Yes Hospital Course Pain Description: Tightness Pain Intensity: 10 Cardiac Cath Date:: 11/19/17 Medical/Surgical History Angina:: Yes Diabetes Type II:: Yes Hypertension:: Yes Dyslipidemia:: Yes Arthritis:: Yes Depression:: Yes Anxiety:: Yes PTCA:: Yes Ambulation Notes:: HE STATES HE FELL 10 IN THE LAST YEAR Discharge/Home/Social Eval Discharge Disposition: Home Marital Status: Single Patient Lives With:: SISTER
[2017-11-19] MEDS: Oxybutynin 5 MG Tablet PO (09:34)
[2017-11-19] MEDS: Gabapentin 600 MG Tablet 900 MG PO (09:34)
--- NOTE | 2017-11-19 09:38 | CRPH1.INSTRU ---
General Education CAD and cardiac anatomy and function:: Patient communicates acknowledgment Explanation of diagnoses and procedures:: Patient communicates acknowledgment Sign/Symptoms of AL:: Patient communicates acknowledgment Antiplatelet therapy: Patient communicates acknowledgment Proper use of NTG-SL: Patient communicates acknowledgment Emergency procedures and activation of EMS: Patient communicates acknowledgment Compliance of all prescribed medications: Patient communicates acknowledgment Smoking Patient Nicotine/Smoking Risk Factors Are:: Never smoked Dyslipidemia Patient Dyslipidemia Risk Factors Are:: Total Cholesterol - 193, Triglycerides - 196, HDL - 37, LDL - 117 Recommendations Include:: Lipid profile provided Overweight/Obesity Patient Overweight/Obesity Risk Factors Are:: Overweight = 26-29 Overweight/Obesity:: Patient communicates acknowledgment Hypertension Recommendations Include:: Maintain BP <130/85, BP <130/80 if diabetic, DASH dietary guidelines, Decrease/maintain normal body weight Hypertension:: Patient communicates acknowledgment Heart Disease Patient Heart Disease Risk Factors Are:: Family history of heart disease < 65 years old, Previous cardiac event Heart Disease Response Code:: Patient communicates acknowledgment Diabetes Recommendations Include:: Maintain fasting blood sugars 70-110 md/dL, Maintain HgbA1c of 6% or less, Monitor blood sugar as prescribed, Diabetic dietary guidelines, Decrease/maintain body weight Diabetes:: Patient communicates acknowledgment Metabolic Syndrome Patient Metabolic Syndrome Risk Factors Are [3 of 5]:: High triglyceride >150, Hypertension, Low HDL <40 [male] or < 50 [female] Recommendations Include:: Patient is diabetic Metabolic Syndrome Response Code:: Patient communicates acknowledgment Sedentary Patient Sedentary Risk Factors Are:: Lack of regular exercise Recommendations Include:: Benefits of regular exercise Sedentary Response Code:: Patient communicates acknowledgment Stress Recommendations Include:: Identification of stressors, and assessment of coping skills Stress Response Code:: Patient communicates acknowledgment - PATIENT IS BIPOLAR
[2017-11-19 11:21] LABS: Bedside Glucose 276 mg/dL (70-110)
--- NOTE | 2017-11-19 12:35 | CASEMGMT ---
Face to Face with patient for initial transition planning/care coordination assessment. RN LIZ introduced self and role at [facility], pt voices understanding and consents to assessment at this time. Pt is sitting up in bed in no distress at this time. Pt is A/Ox4 at this time and answers all questions appropriately at this time. Care providers, pharmacy, and demographics verified. See attached link. Pt voices no further concerns/needs at this time. Advised pt to ask for CM if any further questions/concerns/needs arise, voices understanding. CM to follow for any further discharge planning/needs. C.Willy SW to f/u with pt tomorrow regarding referral. PLAN: TBD [facility] [place] CM
--- NOTE | 2017-11-19 12:43 | CHAPLAIN ---
Type of Pastoral Visit _x__ Initial Visit ___ Follow-up Visit ___ On-call Visit ___ General Patient Visit ___ Spiritual Assessment ___ Family Conference ___ Bereavement ___ Rapid Response ___ Code Blue ___ Other (describe below) Pastoral Care Referral From _x__ Patient ___ Family _x__ Nurse ___ Physician ___ Fruit Raiser ___ Heading Maker ___ Other (describe below) Sacrament/Intervention _x__ Active listening ___ Anointing ___ Congregational ___ Bereavement ___ Communion _x__ Rahel exploration ___ _x__ Life review _x__ Prayer ___ Reconciliation ___ Sacrament of Sick _x__ Supportive presence ___ Wedding ___ Other (describe below) Pastoral Comments patient was talkative; pt 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
--- NOTE | 2017-11-19 13:28 | CASEMGMT ---
As per CM, pt would benefit from speaking w/SW. Pt is sleeping at present, SW will speak w/pt tomorrow. VIC Rogers, COMMUNITY FACILITATOR
--- NOTE | 2017-11-19 13:51 | PCM.PN.HOSP ---
Patient Problems: Active and Suspected Problems (Last Reviewed 03/25/17 @ 14:24 by Scarlett Wharton) STEMI (ST elevation myocardial infarction) (Acute) Anterior STEMI Subjective: f/ for STEMI Patient seen and examined No chest pain and feels better Vitals/I&O's: Vital Signs Temp Pulse Resp BP Pulse Ox 97.8 F 66 16 140/66 H 98 11/19/17 12:00 11/19/17 12:00 11/19/17 12:00 11/19/17 12:20 11/19/17 12:00 Oxygen Delivery Method Room Air Weight: 100.698 kg Body Mass Index (BMI) 31.8 Intake and Output for Last 24 Hours 11/17/17 11/18/17 11/19/17 23:59 23:59 23:59 Intake Total 2422 / 2422 Output Total 910 / 910 Balance 1512 / 1512 General: Alert, Oriented x3, Cooperative HEENT: Atraumatic Oral: Moist Mucosa Neck: Supple, No JVD Cardiovascular: Regular rate Abdomen: Obese Extremities: No clubbing, No edema Neurological: Cranial nerves II-XII grossly intact Psych/Mental Status: Normal Affect Laboratory Results 11/19/17 02:51: Activated Clotting Time 147 H 11/19/17 03:08: Activated Clotting Time 202 H 11/19/17 04:50: Hemoglobin A1c 7.2 H 11/19/17 04:50: Sodium 142, Potassium 5.0, Chloride 107, Carbon Dioxide 24.0, Anion Gap 11, BUN 32 H, Creatinine 2.02 H, Estim Creat Clear Calc 36.14, Est GFR (MDRD) Af Amer 42 L, Est GFR (MDRD) Non-Af 35 L, BUN/Creatinine Ratio 15.8, Glucose 248 H, Calcium 9.1, Magnesium 2.0, Total Bilirubin 0.10 L, AST 53 H, ALT 36, Alkaline Phosphatase 84, Total Protein 6.8, Albumin 2.8 L, Globulin 4.0, Albumin/Globulin Ratio 0.7 L, Triglycerides 196, Cholesterol 193, LDL Cholesterol 117, VLDL Cholesterol 39, HDL Cholesterol 37 L 11/19/17 04:50: WBC 9.0, RBC 3.62 L, Hgb 11.6 L, Hct 36.1 L, MCV 99.7 H, MCH 32.0, MCHC 32.1, RDW 13.6, RDW Differential 48.9 H, Plt Count 233, MPV 10.3 11/19/17 04:50: Troponin I 8.160 H* 11/19/17 06:51: POC Glucose 264 H 11/19/17 08:05: Troponin I 22.900 H* 11/19/17 11:18: POC Glucose 276 H Current Medications Acetaminophen (Tylenol) 650 mg PO Q6H PRN PRN PRN Reason: Mild Pain (0-2/10) Last Admin: 11/19/17 06:07 Dose: 650 mg Hydrocodone Bitart/Acetaminophen ([place] 5mg-325mg) 1 - 2 tablet PO Q6H PRN PRN PRN Reason: Moderate-severe pain Al Hydroxide/Mg Hydroxide (Mylanta Ii) 30 ml PO Q6H PRN PRN PRN Reason: Gastric burning [facility]opurinol ([facility]yloprim) [facility] Last Admin: 11/19/17 08:08 Dose: 300 mg Amlodipine Besylate (Norvasc) 10 mg PO DAILY [facility] Last Admin: 11/19/17 06:55 Dose: 10 mg Aspirin (Ecotrin) 81 mg PO DAILY@0800 [facility] Atorvastatin Calcium (Lipitor) 80 mg PO QHS [facility] Atropine Sulfate () 0.5 mg IV UD PRN PRN Reason: HR <50 bpm Carvedilol (Coreg) 12.5 mg PO BID [facility] Last Admin: 11/19/17 09:24 Dose: Not Given Divalproex Sodium (Depakote) 1,500 mg PO BID [facility] Last Admin: 11/19/17 09:33 Dose: 1,500 mg Ferrous Sulfate (Ferrous Sulfate) 325 mg [facility] Last Admin: 11/19/17 08:08 Dose: 325 mg Flecainide Acetate (Tambocor) 150 mg PO DAILY [facility] Last Admin: 11/19/17 09:33 Dose: 150 mg Gabapentin (Neurontin) 900 mg PO DAILY [facility] Last Admin: 11/19/17 09:34 Dose: 900 mg Heparin Sodium (Beef Lung) (Heparin 500 Unit/5 Ml (100/Ml)) 500 unit IV UD PRN PRN Reason: HEPARIN FLUSH Hydralazine HCl (Apresoline Iv) 10 mg IV Q4H PRN PRN PRN Reason: SBP > 160 Nitroglycerin/Dextrose 25 mg/ (N/A) 250 mls @ 6 mls/hr IV .[id number] [facility] PRN Reason: 10 MCG/MIN Last Admin: 11/19/17 06:02 Dose: Not Given Insulin Glargine (Lantus (Bkc)) 40 units SC BID [facility] Last Admin: 11/19/17 08:08 Dose: 40 u Insulin Human Lispro (Humalog Kwikpen (Bk)) 0 unit SC ACHS [facility] PRN Reason: Protocol Last Admin: 11/19/17 11:54 Dose: 4 u Labetalol HCl (Trandate) 5 mg IV X1 PRN PRN Reason: SBP > 160 when pulling sheath Levothyroxine Sodium (Synthroid) 100 mcg PO DAILY@0600 [facility] Last Admin: 11/19/17 06:04 Dose: 100 mcg Lorazepam (Ativan) 1 mg PO Q6H PRN PRN PRN Reason: BACK SPASMS/ANXIETY Losartan Potassium (Cozaar) 50 mg PO QHS [facility] Magnesium Hydroxide (Milk Of Magnesia) 30 ml PO DAILY PRN PRN PRN Reason: Constipation Metoclopramide HCl (Reglan) 5 mg IV Q6H PRN PRN PRN Reason: NAUSEA/VOMITING Morphine Sulfate () 1 - 2 mg IV Q4H PRN PRN PRN Reason: PAIN Nitroglycerin (Nitrostat) 0.4 mg SUBLINGUAL Q5M PRN PRN Reason: Angina pain Ondansetron HCl (Zofran) 4 mg IV Q8H PRN PRN PRN Reason: NAUSEA Oxcarbazepine (Trileptal) 300 mg PO BID [facility] Last Admin: 11/19/17 09:33 Dose: 300 mg Oxybutynin Chloride (Ditropan) 5 mg PO DAILY [facility] Last Admin: 11/19/17 09:34 Dose: 5 mg Pantoprazole Sodium (Protonix) 20 mg PO DAILY [facility] Last Admin: 11/19/17 09:33 Dose: 20 mg Polyethylene Glycol (Miralax) 17 gm PO DAILY PRN PRN PRN Reason: Constipation Promethazine HCl (Phenergan) 12.5 mg IV Q6H PRN PRN PRN Reason: NAUSEA/VOMITING Sodium Chloride () 500 ml IV BOLUS PRN PRN Reason: VASO-VAGAL PROTOCOL Sodium Chloride () 5 - 30 ml IV UD PRN PRN Reason: SALINE FLUSH Ticagrelor (Brilinta) 90 mg PO BID [facility] Last Admin: 11/19/17 09:33 Dose: 90 mg Medical Necessity - Tobacco Use Smoking Status: Never smoker Tobacco Use: Non-smoker Assessment/Plan All Active Problems (Last Reviewed 03/25/17 @ 14:24 by Scarlett Wharton) STEMI (ST elevation myocardial infarction) (Acute) Scalp laceration (Acute) Cellulitis (Acute) Change in mental status (Acute) (1) Chest Pain w/ Acute Anterior STEMI: s/p left heart cath and angioplasty and stenting to mid LAD. No longer having chest pain and feeling better (2) Hypertensive Emergency: May be secondary to sympathetic response to the STEMI. Improved. Will increase b-summer (3) Hyperlipidemia: Uncertain if true allergy. Will clarify and will need high dose statin (4) Diabetes mellitus type II w/ Neuropathy: Will resume home regimen. ADA diet (5) PAF: Maintain on home regimen metoprolol. Not on anticoagulation (6) Obesity: Weight loss and lifestyle changes encouraged. (7) Fe Deficiency Anemia: stable (8) Bipolar Disorder/Schizophrenia:Stable. Maintain on home regimen (9) Hypothyroidism: Clinically euthyroid. Continue home synthroid regimen. Code Visit Inpatient E&M: 08094 Subs Hosp L3
[2017-11-19] MEDS: CHLORHEXIDINE GLUC 2% CLOTH 1 EACH TOWELETTE TOPICAL (17:01)
[2017-11-19 17:10] LABS: Bedside Glucose 254 mg/dL (70-110)
[2017-11-19] MEDS: Carvedilol 12.5 MG Tablet PO (20:49)
[2017-11-19] MEDS: LORazepam 1 MG Tablet PO (20:50)
[2017-11-19] MEDS: Losartan Potassium 50 MG Tablet PO (20:50)
[2017-11-19] MEDS: Atorvastatin Calcium 80 MG Tablet PO (20:54)
[2017-11-19 21:35] LABS: Bedside Glucose 245 mg/dL (70-110)
[2017-11-20] VITALS (19 sets, daily range): BP systolic 90–141; BP diastolic 46–73; PULSE 56–100; RESP 12–22; TEMP 36.3–37; O2SAT 95–100
[2017-11-20] MEDS: Levothyroxine 100 MCG Tablet PO (05:16)
[2017-11-20 08:05] LABS: Bedside Glucose 125 mg/dL (70-110)
[2017-11-20] MEDS: Oxybutynin 5 MG Tablet PO (08:17)
[2017-11-20] MEDS: Allopurinol 300 MG Tablet PO (08:17)
[2017-11-20] MEDS: Pantoprazole Sodium 20 MG Tablet PO (08:17)
[2017-11-20] MEDS: Ferrous Sulfate 325 MG Tablet PO (08:17)
[2017-11-20] MEDS: Gabapentin 600 MG Tablet 900 MG PO (08:18)
[2017-11-20] MEDS: TICAGRELOR 90 MG TABLET PO ×2 (08:19→21:28)
[2017-11-20] MEDS: Aspirin E.C. 81 MG Tablet PO (08:20)
[2017-11-20] MEDS: Divalproex Sodium 250 MG Tablet 1500 MG PO ×2 (08:24→21:29)
[2017-11-20] MEDS: Carvedilol 12.5 MG Tablet PO (08:24)
[2017-11-20] MEDS: Flecainide 150 MG Tablet PO (08:25)
[2017-11-20] MEDS: OXcarbazepine 300 MG Tablet PO ×2 (08:25→21:31)
[2017-11-20] MEDS: amLODIPine 10 MG Tablet PO (08:25)
[2017-11-20] MEDS: CHLORHEXIDINE GLUC 2% CLOTH 1 EACH TOWELETTE TOPICAL (08:28)
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
--- NOTE | 2017-11-20 10:29 | PCM.PN.CARD ---
Subjectve: Patient was doing well this morning, sitting in a chair, feels great! Telemetry showed normal sinus rhythm with rare PVCs. EKG shows normal sinus rhythm with resolving anteroseptal wall myocardial infarction. Patient was given his Coreg, amlodipine and losartan this morning and he dropped his blood pressure into the 70s although he had previously been in the 180s. Patient was brought back to bed, and given IV fluid bolus and stabilized. Other than that he is doing fairly well and denies any chest pain or anginal symptoms. His right groin is clean/dry/intact. Hemoglobin and creatinine are within nominal limits, and peak troponin was 22.9. Echocardiogram done yesterday demonstrated moderate mid anterior apical hypokinesis with an overall ejection fraction around 50%. Objective: Vital Signs Temp Pulse Resp BP Pulse Ox 98.5 F 68 13 125/71 H 97 11/20/17 04:00 11/20/17 08:00 11/20/17 08:00 11/20/17 07:28 11/20/17 08:00 Oxygen Delivery Method Room Air Weight: 212 lb 8.41 oz Body Mass Index (BMI) 31.8 Intake and Output for Last 24 Hours 11/18/17 11/19/17 11/20/17 23:59 23:59 23:59 Intake Total 3251 / 3251 120 / 120 Output Total 1910 / 1910 Balance 1341 / 1341 120 / 120 General: Awake, Alert, Oriented x 3 HEENT: PERRL, EOMI, Sclera Non Icteric Neck: Supple, Good ROM, No Lymph Node Enlargement Lungs: Clear to auscultation Cardiovascular: Regular Rhythm, Normal S1, Normal S2, No Murmurs, No Rubs, No Gallops Vascular: No Carotid Bruits, Normal Femoral Pulses, Normal Radial Pulses, Normal Dorsalis Pedal Pulse, Normal Posterior Tibial Pulses Abdomen: Bowel Sounds Present, Soft, Non Tender, No HSM, No Organomegaly Extremities: No Cyanosis, No Clubbing, No edema Neurological: No Focal Motor or Sensory Deficit Rhythm: EKG: ECHO: Stress Test: Cardiac Cath: PCI: CT Surgery: Holter monitor: EPS: PPM: CXR: Chest CT Scan: Medical Necessity - Tobacco Use Smoking Status: Never smoker Tobacco Use: Non-smoker Assessment/Plan #1. Coronary artery disease: The patient presents with 4 day history of intermittent substernal chest pain, culminating in severe chest pain last evening where he sought medical attention at [facility] and EKG demonstrated acute anteroseptal wall myocardial infarction. STEMI team was activated, the patient had emergent angioplasty and stenting of his mid LAD receiving a 2.5X 20 Promus Synergy stent with an excellent result. He has minimal nonobstructive disease of his proximal LAD, circumflex and RCA. His EF was intact at about 50% with some mild mid anterior hypokinesis. Patient was hypertensive at the end of procedure and received a minx closure device as well as start a nitroglycerin drip. At this point I would continue aspirin, Brilinta, and switch him to Coreg 6.25 mg p.o. twice daily. Patient had a hypotensive episode this morning, and would decrease his amlodipine to 5 mg bid. Patient has a creatinine of 2.11, and was on losartan at home. He will continue his losartan 50 mg in the evening. He will continue amlodipine. The patient does not require any additional stress testing to evaluate his left circumflex or RCA. Echocardiogram showed relatively intact LV function with moderate mid anterior apical hypokinesis overall ejection fraction around 50-55%.. 2. Hyperlipidemia: Patient claims that he was on Lipitor in the past, but cannot recall why was discontinued. He declined that he had myalgias or GI upset. We will try Lipitor again 80 mg's p.o. nightly and repeat lipid profile in 6 weeks time. Should the patient have myalgias he may benefit from either vitamin D or switching him to gemfibrozil. 3. Bipolar disorder: Patient has baseline known bipolar disorder, and will continue his treatment. I believe the patient will be able to do cardiac rehab but will know more once he is able to get out of bed. 4. Thank you very much for the opportunity to participate in the cardiac care of your patient. Patient may continue in the ICU status given his recent hypotension. Code Visit Inpatient E&M: 74823 Subs Hosp L2
--- NOTE | 2017-11-20 10:47 | NURSING ---
BP 74/36 DR MCKEON AWARE ORDERED & GIVEN 500 CC NS BOLUS BP 123/73
--- NOTE | 2017-11-20 11:45 | CASEMGMT ---
Addendum entered by Juan Calderon 11/21/17 08:24: Call received from [facility]. They can accept pt for Home Health. Due to Holiday weekend, anticipate pt will be seen on 11/25/17. Bernardo SPRAGUE CM updated on dc planning. Original Note: [place] Note: Pt is agreeable to Home Health on dc. [facility] choice per pt. Call to [facility], message left. Order placed for RN/PT. Plan is for pt to return home with his sister. Heber ARRIOLAN RN ACM
[2017-11-20 11:50] LABS: Bedside Glucose 193 mg/dL (70-110)
[2017-11-20] MEDS: Insulin Lispro 100 UNIT/ML INSULN.PEN SC ×3 (12:37→21:29)
[2017-11-20 16:40] LABS: Bedside Glucose 200 mg/dL (70-110)
--- NOTE | 2017-11-20 17:11 | PCM.PN.HOSP ---
Patient Problems: Active and Suspected Problems (Last Reviewed 03/25/17 @ 14:24 by Scarlett Wharton) STEMI (ST elevation myocardial infarction) (Acute) Anterior STEMI Subjective: f/u for NSTEMI Low BP noted this am Has been seen by cardiology Vitals/I&O's: Vital Signs Temp Pulse Resp BP Pulse Ox 97.7 F L 74 18 141/70 H 100 11/20/17 11:55 11/20/17 16:00 11/20/17 16:00 11/20/17 16:00 11/20/17 16:00 Oxygen Delivery Method Room Air Weight: 96.4 kg Body Mass Index (BMI) 31.8 Intake and Output for Last 24 Hours 11/18/17 11/19/17 11/20/17 23:59 23:59 23:59 Intake Total 3251 / 3251 820 / 820 Output Total 1910 / 1910 Balance 1341 / 1341 820 / 820 General: Alert, Oriented x3, Lethargic HEENT: Atraumatic Oral: Dry Mucosa Neck: Supple Lungs: Clear to auscultation Cardiovascular: Regular rate, Regular Rhythm, Normal S1, Normal S2 Abdomen: Bowel Sounds Present, Soft Extremities: No clubbing, No edema Neurological: Cranial nerves II-XII grossly intact, Neuro grossly intact Psych/Mental Status: Normal Affect, Appropriate Laboratory Results 11/19/17 20:57: POC Glucose 245 H 11/20/17 07:53: POC Glucose 125 H 11/20/17 11:47: POC Glucose 193 H 11/20/17 16:35: POC Glucose 200 H Current Medications Acetaminophen (Tylenol) 650 mg PO Q6H PRN PRN PRN Reason: Mild Pain (0-2/10) Last Admin: 11/19/17 15:07 Dose: 650 mg Hydrocodone Bitart/Acetaminophen ([place] 5mg-325mg) 1 - 2 tablet PO Q6H PRN PRN PRN Reason: Moderate-severe pain Al Hydroxide/Mg Hydroxide (Mylanta Ii) 30 ml PO Q6H PRN PRN PRN Reason: Gastric burning [facility]) [facility] Last Admin: 11/20/17 08:17 Dose: 300 mg Amlodipine Besylate (Norvasc) 5 mg PO BID [facility] Last Admin: 11/20/17 10:46 Dose: Not Given Aspirin (Ecotrin) 81 mg PO DAILY@0800 [facility] Last Admin: 11/20/17 08:20 Dose: 81 mg Atorvastatin Calcium (Lipitor) 80 mg PO QHS [facility] Last Admin: 11/19/17 20:54 Dose: 80 mg Atropine Sulfate () 0.5 mg IV UD PRN PRN Reason: HR <50 bpm Carvedilol (Coreg) 6.25 mg PO BID [facility] Last Admin: 11/20/17 10:46 Dose: Not Given Chlorhexidine Gluconate () 1 each TOPICAL DAILY [facility] Last Admin: 11/20/17 08:28 Dose: 1 each Divalproex Sodium (Depakote) 1,500 mg PO BID [facility] Last Admin: 11/20/17 08:24 Dose: 1,500 mg Ferrous Sulfate (Ferrous Sulfate) [facility] Last Admin: 11/20/17 08:17 Dose: 325 mg Flecainide Acetate (Tambocor) 150 mg PO DAILY [facility] Last Admin: 11/20/17 08:25 Dose: 150 mg Gabapentin (Neurontin) 900 mg PO DAILY [facility] Last Admin: 11/20/17 08:18 Dose: 900 mg Heparin Sodium (Beef Lung) (Heparin 500 Unit/5 Ml (100/Ml)) 500 unit IV UD PRN PRN Reason: HEPARIN FLUSH Hydralazine HCl (Apresoline Iv) 10 mg IV Q4H PRN PRN PRN Reason: SBP > 160 Insulin Glargine (Lantus (Bkc)) 40 units SC BID [facility] Last Admin: 11/20/17 08:26 Dose: 40 u Insulin Human Lispro (Humalog Kwikpen (Bkc)) 0 unit SC ACHS [facility] PRN Reason: Protocol Last Admin: 11/20/17 12:37 Dose: 2 u Labetalol HCl (Trandate) 5 mg IV X1 PRN PRN Reason: SBP > 160 when pulling sheath Levothyroxine Sodium (Synthroid) 100 mcg PO DAILY@0600 [facility] Last Admin: 11/20/17 05:16 Dose: 100 mcg Lorazepam (Ativan) 1 mg PO Q6H PRN PRN PRN Reason: BACK SPASMS/ANXIETY Last Admin: 11/19/17 20:50 Dose: 1 mg Losartan Potassium (Cozaar) 50 mg PO QHS [facility] Last Admin: 11/19/17 20:50 Dose: 50 mg Magnesium Hydroxide (Milk Of Magnesia) 30 ml PO DAILY PRN PRN PRN Reason: Constipation Metoclopramide HCl (Reglan) 5 mg IV Q6H PRN PRN PRN Reason: NAUSEA/VOMITING Morphine Sulfate () 1 - 2 mg IV Q4H PRN PRN PRN Reason: PAIN Nitroglycerin (Nitrostat) 0.4 mg SUBLINGUAL Q5M PRN PRN Reason: Angina pain Ondansetron HCl (Zofran) 4 mg IV Q8H PRN PRN PRN Reason: NAUSEA Oxcarbazepine (Trileptal) 300 mg PO BID [facility] Last Admin: 11/20/17 08:25 Dose: 300 mg Oxybutynin Chloride (Ditropan) 5 mg PO DAILY [facility] Last Admin: 11/20/17 08:17 Dose: 5 mg Pantoprazole Sodium (Protonix) 20 mg PO DAILY [facility] Last Admin: 11/20/17 08:17 Dose: 20 mg Polyethylene Glycol (Miralax) 17 gm PO DAILY PRN PRN PRN Reason: Constipation Promethazine HCl (Phenergan) 12.5 mg IV Q6H PRN PRN PRN Reason: NAUSEA/VOMITING Sodium Chloride () 500 ml IV BOLUS PRN PRN Reason: VASO-VAGAL PROTOCOL Sodium Chloride () 5 - 30 ml IV UD PRN PRN Reason: SALINE FLUSH Ticagrelor (Brilinta) 90 mg PO BID [facility] Last Admin: 11/20/17 08:19 Dose: 90 mg Medical Necessity - Tobacco Use Smoking Status: Never smoker Tobacco Use: Non-smoker Assessment/Plan All Active Problems (Last Reviewed 03/25/17 @ 14:24 by Scarlett Wharton) STEMI (ST elevation myocardial infarction) (Acute) Scalp laceration (Acute) Cellulitis (Acute) Change in mental status (Acute) (1) Chest Pain w/ Acute Anterior STEMI: s/p left heart cath and angioplasty and stenting to mid LAD. No longer having chest pain and feeling better (2) Hypertensive Emergency: May be secondary to sympathetic response to the STEMI. Low BP today and medications have been adjusted (3) Hyperlipidemia: Will need high dose statin (4) Diabetes mellitus type II w/ Neuropathy: Will resume home regimen. ADA diet (5) PAF: Maintain on home regimen metoprolol. Not on anticoagulation (6) Obesity: Weight loss and lifestyle changes encouraged. (7) Fe Deficiency Anemia: stable (8) Bipolar Disorder/Schizophrenia:Stable. Maintain on home regimen (9) Hypothyroidism: Clinically euthyroid. Continue home synthroid regimen. 10. stage III CKD. Stable Code Visit Inpatient E&M: 60672 Subs Hosp L2
--- NOTE | 2017-11-20 17:56 | NURSING ---
report called to pcu pt transferred per bed to room 115 with belongings
[2017-11-20] MEDS: Losartan Potassium 50 MG Tablet PO (21:29)
[2017-11-20] MEDS: Atorvastatin Calcium 80 MG Tablet PO (21:31)
[2017-11-20] MEDS: Carvedilol 6.25 MG Tablet PO (22:19)
--- NOTE | 2017-11-20 22:42 | NURSING ---
called patient's sister, Jacklyn Rose, to give her an update on patient. spoke with her for about 10 minutes on the phone.
[2017-11-21] VITALS (8 sets, daily range): BP systolic 102–109; BP diastolic 54–60; PULSE 68–73; RESP 18–20; TEMP 36.6–36.9; O2SAT 93–99
[2017-11-21 00:16] LABS: Bedside Glucose 180 mg/dL (70-110)
[2017-11-21] MEDS: Levothyroxine 100 MCG Tablet PO (06:09)
[2017-11-21 07:06] LABS: Bedside Glucose 85 mg/dL (70-110)
[2017-11-21] MEDS: Aspirin E.C. 81 MG Tablet PO (08:14)
[2017-11-21] MEDS: Divalproex Sodium 250 MG Tablet 1500 MG PO (09:36)
[2017-11-21] MEDS: Gabapentin 600 MG Tablet 900 MG PO (09:36)
[2017-11-21] MEDS: TICAGRELOR 90 MG TABLET PO (09:37)
[2017-11-21] MEDS: Flecainide 150 MG Tablet PO (09:37)
[2017-11-21] MEDS: OXcarbazepine 300 MG Tablet PO (09:38)
[2017-11-21] MEDS: Carvedilol 6.25 MG Tablet PO (09:42)
[2017-11-21 09:53] LABS: Bedside Glucose 243 mg/dL (70-110)
--- NOTE | 2017-11-21 11:16 | CASEMGMT ---
SW received a call back from director Earl Villagomez, stating that pt has not yet been assigned a new case resource manager, but is no the list to get a new case resource manager next week, and [facility] will call pt next week with this information. SW let the SW on PCU know this information, as pt is now on PCU. VIC Rogers, BRIDGE WORKER APPRENTICE
--- NOTE | 2017-11-21 11:19 | PCA ---
Patient resistent to care and cursing at [employer] and nurses. Inappropriate at this time and refuses to allow staff in bathroom.
[2017-11-21] MEDS: Insulin Lispro 100 UNIT/ML INSULN.PEN SC (11:24)
[2017-11-21 11:30] LABS: Bedside Glucose 194 mg/dL (70-110)
--- NOTE | 2017-11-21 11:46 | PCM.DC ---
- Discharge Diagnoses Current Active Problems: Current Active and Chronic Problems (Last Reviewed 03/25/17 @ 14:24 by Scarlett Wharton) STEMI (ST elevation myocardial infarction) (Acute) Anterior STEMI You will use the following diet at home:: No restrictions, Regular Your food should be the consistency of: Regular Your liquids should be the consistency of: Regular/Thin Discharge Activity: Return to Normal Activity Allergies/Adverse Reactions: Allergies atorvastatin [From Lipitor] Allergy (Verified 09/16/17 15:54) Unknown Penicillins Allergy (Verified 09/16/17 15:54) Unknown codeine Adverse Reaction (Verified 09/16/17 15:54) Upset Stomach doxycycline Adverse Reaction (Verified 09/16/17 15:54) Other LYCOPEEN Adverse Reaction (Uncoded 09/16/17 15:54) Other 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 Adverse Reaction (Uncoded 09/16/17 15:54) Rash Medications to take at Discharge Divalproex Sodium [Depakote] 1,500 mg PO BID 01/11/13 Glimepiride 2 mg PO DAILY 01/21/16 Allopurinol [Zyloprim] 300 mg PO DAILY 04/09/16 Esomeprazole Magnesium [Nexium 24Hr] 20 mg PO DAILY 04/09/16 Ferrous Sulfate [Iron] 325 mg PO DAILY 04/09/16 Flecainide [Tambocor] 150 mg PO DAILY 04/09/16 Gabapentin [Neurontin] 900 mg PO DAILY 04/09/16 Losartan Potassium [Cozaar] 50 mg PO QHS 04/09/16 Meloxicam [Mobic] 15 mg PO DAILY 04/09/16 Levothyroxine [Synthroid] 100 mcg PO DAILY 09/07/16 Multivitamin [Daily Multiple Vitamin] 1 tab PO DAILY 09/07/16 aspirin 81 mg tablet,delayed release 81 mg PO QDAY 02/27/17 betamethasone dipropionate 0.05 % lotion 1 applic TOPICAL BID 02/27/17 diclofenac 1 % topical gel 2 g TOPICAL TID g 02/27/17 dulaglutide 0.75 mg/0.5 mL subcutaneous pen injector 0.75 mg SC QWEEK 02/27/17 fluticasone 50 mcg/actuation nasal spray,suspension 2 spray INTRANASAL QDAY 02/27/17 insulin detemir (U-100) 100 unit/mL (3 mL) subcutaneous pen 40 unit SC BID ml 02/27/17 metformin 500 mg tablet 500 mg PO BID tab 02/27/17 nitroglycerin 0.4 mg sublingual tablet 0.4 mg SUBLINGUAL Q5M PRN 02/27/17 oxcarbazepine 300 mg tablet 300 mg PO BID 02/27/17 polyethylene glycol 3350 17 gram/dose oral powder 17 g PO QDAY PRN 02/27/17 tizanidine 2 mg capsule 2 mg PO Q6H PRN cap 02/27/17 tramadol 50 mg tablet 50 mg PO Q8H PRN tab 02/27/17 triamcinolone acetonide 0.1 % topical cream 1 applic TOPICAL TID 02/27/17 Atorvastatin Calcium [Lipitor] 80 mg PO QHS #30 tab 11/21/17 Carvedilol [Coreg (Beta Tulio)] 6.25 mg PO BID #60 tab 11/21/17 Ticagrelor [Brilinta] 90 mg PO BID #60 tab 11/21/17 The following prescriptions were given: Atorvastatin Calcium [Lipitor] 80 mg PO QHS #30 tab Carvedilol [Coreg (Beta Tulio)] 6.25 mg PO BID #60 tab Ticagrelor [Brilinta] 90 mg PO BID #60 tab Primary Care Physician: Issa Trinidad MD [Primary Care Provider] - Please follow up with your Primary Care Physician in: 1-2 weeks Test Results: Test results from this visit will be discussed in further detail at your follow-up appointment, if applicable. Please Follow Up With: Chito Nguyen MD Please Follow Up With: Dannie Lyman NP-C Proposed Discharge Date: 11/21/17
--- NOTE | 2017-11-21 11:49 | PCM.DC.SUM ---
Discharge Date and Diagnosis - Problem List Patient Problems: Active and Suspected Problems (Last Reviewed 03/25/17 @ 14:24 by Scarlett Wharton) STEMI (ST elevation myocardial infarction) (Acute) Anterior STEMI Date of Admission: 11/19/17 Date of Discharge: 11/21/17 - Primary Discharge Diagnosis Active and Suspected Problems (Last Reviewed 03/25/17 @ 14:24 by Scarlett Wharton) STEMI (ST elevation myocardial infarction) (Acute) Anterior STEMI - Secondary Discharge Diagnosis Chronic Problems (Last Reviewed 03/25/17 @ 14:24 by Scarlett Wharton) Diabetes mellitus, type II (Chronic) BG readings checked at various times of day. Range 58-200+ He does have a pattern of waking with low Bg. Will reduce his pm lantus today and have him call back office with any further low BG. Reports taking insulin as directed as well as his oral agents. Is due for labs and I have ask him to do these today or tomorrow. BP recheck 134/76 Bipolar disorder (Chronic) Hyperlipidemia (Chronic) Neuropathy (Chronic) Hypertension (Chronic) Gout (Chronic) Traumatic brain injury (Chronic) Arthritis (Chronic) Hospital Course and Treatment Operations: None Procedures: 2-D Echocardiogram, Cardiac catheterization - LAD blockage noted and had LAURE deployed Summary of Care Provided: The patient is a 66 year old M with cardiovascular risk factors. Admitted on account of chest pain, elevated troponins and ST elevation on EKG. Diagnosed with acute STEMI and underwent left heart catheterization. Occlusion of the mid LAD was noted and patient underwent percutaneous coronary angioplasty and deployment of a drug eluting stent. Procedure was well tolerated and without any post-procedure complications other than hypotension which responded to fluid boluses and a holding of his antihypertensives Patient seen by cardiology and mo for discharge Will follow up with cardiology as scheduled [] Discharge Activity: Return to Normal Activity Home Medications: Medications to take at Discharge Divalproex Sodium [Depakote] 1,500 mg PO BID 01/11/13 Glimepiride 2 mg PO DAILY 01/21/16 Allopurinol [Zyloprim] 300 mg PO DAILY 04/09/16 Esomeprazole Magnesium [Nexium 24Hr] 20 mg PO DAILY 04/09/16 Ferrous Sulfate [Iron] 325 mg PO DAILY 04/09/16 Flecainide [Tambocor] 150 mg PO DAILY 04/09/16 Gabapentin [Neurontin] 900 mg PO DAILY 04/09/16 Losartan Potassium [Cozaar] 50 mg PO QHS 04/09/16 Meloxicam [Mobic] 15 mg PO DAILY 04/09/16 Levothyroxine [Synthroid] 100 mcg PO DAILY 09/07/16 Multivitamin [Daily Multiple Vitamin] 1 tab PO DAILY 09/07/16 aspirin 81 mg tablet,delayed release 81 mg PO QDAY 02/27/17 betamethasone dipropionate 0.05 % lotion 1 applic TOPICAL BID 02/27/17 diclofenac 1 % topical gel 2 g TOPICAL TID g 02/27/17 dulaglutide 0.75 mg/0.5 mL subcutaneous pen injector 0.75 mg SC QWEEK 02/27/17 fluticasone 50 mcg/actuation nasal spray,suspension 2 spray INTRANASAL QDAY 02/27/17 insulin detemir (U-100) 100 unit/mL (3 mL) subcutaneous pen 40 unit SC BID ml 02/27/17 metformin 500 mg tablet 500 mg PO BID tab 02/27/17 nitroglycerin 0.4 mg sublingual tablet 0.4 mg SUBLINGUAL Q5M PRN 02/27/17 oxcarbazepine 300 mg tablet 300 mg PO BID 02/27/17 polyethylene glycol 3350 17 gram/dose oral powder 17 g PO QDAY PRN 02/27/17 tizanidine 2 mg capsule 2 mg PO Q6H PRN cap 02/27/17 tramadol 50 mg tablet 50 mg PO Q8H PRN tab 02/27/17 triamcinolone acetonide 0.1 % topical cream 1 applic TOPICAL TID 02/27/17 Atorvastatin Calcium [Lipitor] 80 mg PO QHS #30 tab 11/21/17 Carvedilol [Coreg (Beta Tulio)] 6.25 mg PO BID #60 tab 11/21/17 Ticagrelor [Brilinta] 90 mg PO BID #60 tab 11/21/17 Following Prescrptions Were Given to Patient: Atorvastatin Calcium [Lipitor] 80 mg PO QHS #30 tab Carvedilol [Coreg (Beta Tulio)] 6.25 mg PO BID #60 tab Ticagrelor [Brilinta] 90 mg PO BID #60 tab Primary Care Physician: Issa Trinidad MD [Primary Care Provider] - Please follow up with your Primary Care Physician in: 1-2 weeks Please Follow Up With: Chito Nguyen MD Please Follow Up With: Dannie Lyman NP-C Medical Necessity - Tobacco Use Smoking Status: Never smoker Tobacco Use: Non-smoker Meaningful Use Info Meaningful Use Diagnoses (Choose all that apply): None applicable Code Visit Inpatient E&M: 06597 Disch Hosp
--- NOTE | 2017-11-21 12:02 | CASEMGMT ---
JACOB let patient know that [facility] will call him next week with a new Network Design Architect assignment. He thanked JACOB. Mechelle BOTELLO
--- NOTE | 2017-11-21 12:11 | PCM.PN.CARD ---
Subjectve: Patient doing very well, blood pressure and heart rate is stabilized. Denies any chest pain. In fact feels great. Right groin is clean/dry/intact. Objective: Vital Signs Temp Pulse Resp BP Pulse Ox 98.4 F 72 18 109/54 L 93 11/21/17 08:08 11/21/17 11:17 11/21/17 08:08 11/21/17 08:08 11/21/17 08:08 Oxygen Delivery Method Room Air Weight: 210 lb 1.608 oz Body Mass Index (BMI) 31.8 Intake and Output for Last 24 Hours 11/19/17 11/20/17 11/21/17 23:59 23:59 23:59 Intake Total 3251 / 3251 880 / 880 360 / 360 Output Total 1910 / 1910 Balance 1341 / 1341 880 / 880 360 / 360 General: Awake, Alert, Oriented x 3 HEENT: PERRL, EOMI, Sclera Non Icteric Neck: Supple, Good ROM, No Lymph Node Enlargement Lungs: Clear to auscultation Cardiovascular: Regular Rhythm, Normal S1, Normal S2, No Murmurs, No Rubs, No Gallops Vascular: No Carotid Bruits, Normal Femoral Pulses, Normal Radial Pulses, Normal Dorsalis Pedal Pulse, Normal Posterior Tibial Pulses Abdomen: Bowel Sounds Present, Soft, Non Tender, No HSM, No Organomegaly Extremities: No Cyanosis, No Clubbing, No edema Neurological: No Focal Motor or Sensory Deficit Rhythm: EKG: ECHO: Stress Test: Cardiac Cath: PCI: CT Surgery: Holter monitor: EPS: PPM: CXR: Chest CT Scan: Medical Necessity - Tobacco Use Smoking Status: Never smoker Tobacco Use: Non-smoker Assessment/Plan #1. Coronary artery disease: The patient presented with 4 day history of intermittent substernal chest pain, culminating in severe chest pain on evening of admission, where he sought medical attention at [facility] ER. EKG demonstrated acute anteroseptal wall myocardial infarction. STEMI team was activated, the patient had emergent angioplasty and stenting of his mid LAD receiving a 2.5 X 20 Promus Synergy stent with an excellent result. He has minimal nonobstructive disease of his proximal LAD, circumflex and RCA. His EF was intact at about 50% with some mild mid anterior hypokinesis. Patient was hypertensive at the end of procedure and received a minx closure device as well as start a nitroglycerin drip. At this point I would continue aspirin, Brilinta, and switch him to Coreg 6.25 mg p.o. twice daily. Patient had a hypotensive episode this morning, and would decrease his amlodipine to 5 mg bid. Patient has a creatinine of 2.11, and was on losartan at home. He will continue his losartan 50 mg in the evening. He will continue amlodipine. The patient does not require any additional stress testing to evaluate his left circumflex or RCA. Echocardiogram showed relatively intact LV function with moderate mid anterior apical hypokinesis overall ejection fraction around 50-55%.. 2. Hyperlipidemia: Patient claims that he was on Lipitor in the past, but cannot recall why was discontinued. He declined that he had myalgias or GI upset. We will try Lipitor again 80 mg's p.o. nightly and repeat lipid profile in 6 weeks time. Should the patient have myalgias he may benefit from either vitamin D or switching him to gemfibrozil. 3. Bipolar disorder: Patient has baseline known bipolar disorder, and will continue his treatment. I believe the patient will be able to do cardiac rehab but will know more once he is able to get out of bed. 4. Thank you very much for the opportunity to participate in the cardiac care of your patient. Patient may be discharged home. Will follow-up with Dr. Nguyen going forward. Code Visit Inpatient E&M: 56346 Subs Hosp L2
--- NOTE | 2017-11-26 16:07 | CASEMGMT ---
RN CM Discharge F/U Phone Call LACE: 12 Strata: 4 Discharge date: 11/21/17 Call date: 11/26/17 Call time: [id number] Attempted to reach pt without success at this time, message left for pt to call this RN CM back when available. S[place]en RN CM Admission dx: NSTEMI
== END 2017-11-21 14:15 | disposition home or self-care (01) | DRG 247 ==
LOC: ED 01:57 → ICU 02:29 → PCU 11-20 18:34
PROVIDERS: Admitting Provider Family Medicine; Emergency Provider Emergency Medicine; Family Provider Family Medicine; PCP Family Medicine; Visit Provider Internal Medicine
DX: I21.09 ST elevation (STEMI) myocardial infarction involving other coronary artery of anterior wall (principal); I16.1 Hypertensive emergency; F31.9 Bipolar disorder, unspecified; E03.9 Hypothyroidism, unspecified; E11.40 Type 2 diabetes mellitus with diabetic neuropathy, unspecified; E66.9 Obesity, unspecified; D50.9 Iron deficiency anemia, unspecified; I10 Essential (primary) hypertension; Z87.820 Personal history of traumatic brain injury; M10.9 Gout, unspecified; Z68.31 Body mass index [BMI] 31.0-31.9, adult; Z79.4 Long term (current) use of insulin; M19.90 Unspecified osteoarthritis, unspecified site; E78.5 Hyperlipidemia, unspecified; I25.10 Atherosclerotic heart disease of native coronary artery without angina pectoris
CPT/HCPCS: 71045; 80048; 80053; 80061; 82962; 83036; 83735; 84484; 85025; 85027; 85347; 85610; 85730; 92941; 93005; 93306; 93458; 97110; 97162; 97166; 97530; 97802; 99283; C1760; J7030; J7040; A4216; C1725; C1769; C1874; C1887; C9606; Q9967

== ENCOUNTER 2017-11-25 11:23 | Emergency (ER) | payer MEDICARE, MEDICAID, SELFPAY ==
[2017-11-19 09:37] VITALS: BMI 31.8
[2017-11-25 11:24] VITALS: BP 131/78; PULSE 76; RESP 18; TEMP 37; O2SAT 98; BMI 32.5
[2017-11-25 14:58] LABS: Absolute Neutrophil Count 3.6 X10^3/uL (2.0-7.7); Basophil# 0.01 X10^3/uL; Basophil% 0.2 % (0-1); Eosinophil# 0.22 X10^3/uL; Eosinophils% 3.5 % (0-5); Hematocrit 34.8 % (40-54); Hemoglobin 10.9 g/dl (13.0-16.5); Lymphocyte % 28.4 % (19-41); Mean Corp Hgb Conc 31.3 g/gl (32-36); Mean Corpuscular Hgb 31.6 pg (27.0-32.0); Mean Corpuscular Volume 100.9 fL (80-94); Mean Platelet Vol. 9.8 fl (6.2-12.0); Neutrophil % 56.7 % (47-70); Platelet Count 225 K/mm3 (150-450); RBC Distribution Width CV 13.3 % (11.6-14.6); RBC Distribution Width SD 49.1 fl (35.1-43.9); Red Blood Count 3.45 M/mm3 (4.6-6.2); White Blood Count 6.3 K/mm3 (4.4-11.0)
[2017-11-25 14:59] LABS: POSITIVE COUNT NO; POSITIVE DIFFERENTIAL NO; POSITIVE MORPHOLOGY NO
--- NOTE | 2017-11-25 15:02 | CM.ED ---
Social Work Note Pt reports to live with his sister, Kinjal. Both state that the pt needs a walker to ambulate, but he typically ambulates well. Does reports recent issues with incontinence following his heart attack on 11/19. Reports some difficulty with lower body dressing. Pt's sister expresses concern with ability to care for him. Pt states that he would consider placement if insurance would cover. Discuss that without a 3 midnight stay in a hospital he his insurance will not cover. Inquire if he has considered going to [facility] if his sister is not able to manage his care. Pt states that he has considered, but is not there yet. They both deny that he has fallen recently and state that it has been about 2.5 months since his last fall. Incontinence appears to be the primary issue which is not going to be solved with placement. For placement in SNF or [facility] it would be a private expense at this time. Would anticipate return home with [facility] and [facility] unless pt meets requirements for hospitalization or if [facility] can take the pt. Inform that SW will return to confirm plan once results are not pending. Placed call to [facility] admission coordinator/director, and left requesting a return phone call. Jessica Garcia, COLLECTIONS CURATOR, RESIZER OPERATOR
[2017-11-25 15:04] LABS: Bacteria 0 SEEN /hpf (None Seen); Mucous, Urine 0 SEEN /hpf (<or=2+); Red Blood Cells-Urine 0 SEEN /hpf (0-5); Squamous Epithelial Cells - UA 0 SEEN /hpf (0-5); White Blood Cells 0 SEEN /hpf (0-5)
[2017-11-25 15:05] LABS: Color, Urine Yellow (Yellow); Glucose, Dipstick 250 mg/dl (Normal); Ketone-Dipstick Negative (Negative); Leukocyte Esterase-Dipstick Negative /ul (Negative); Nitrite-Dipstick Negative (Negative); Occult Blood-Urine Negative /ul (Negative); Protein-Dipstick 100 mg/dl (Negative); Urine Bilirubin Dipstick Negative (Negative); Urine Clarity Clear (Clear); Urine Urobilinogen Normal (Normal); Urine pH 6.5 (5.0 - 8.0)
[2017-11-25] MEDS: 0.9% Normal Saline 1,000 ML 150 ML IV (15:12)
[2017-11-25 15:20] LABS: Anion Gap 7 (5-15); BUN 28 mg/dL (7-18); BUN/Creat Ratio 13.2 RATIO (10-20); Chloride 107 mmol/L (98-107); Creatinine, Serum 2.12 mg/dL (0.70-1.30); EST Glomerular Filtration Rate 33 mL/min (>60); Est Glom Filt Rate - Afr Amer 40 mL/min (>60); Estimated Creatinine Clearance 33.35 ml/min; Glucose 180 mg/dL (74-106); Potassium 4.5 mmol/L (3.5-5.1); Sodium Level 141 mmol/L (136-145)
--- NOTE | 2017-11-25 15:22 | ED.RN ---
critical troponin value given to dr tam. Dalton Dumont, RN [id number]
--- NOTE | 2017-11-25 16:00 | ED.VISSUMM ---
- ER Visit Summary Date of Service: 11/25/17 Chief Complaint: [Concern for soft tissue foreign body] History of Present Illness: The patient is a 66 M [presents the emergency department concerned that he may have broken off a insulin needle in his abdomen. Patient is somewhat of a poor historian as to what happened but he states that he gave himself insulin last evening and for some reason believes that he may have broken the needle off. Patient's states that lately he has been bending the needles due to the fact that he has been quite shaky. Patient was admitted about a week ago to the hospital and had a heart attack that required one stent being placed by Dr. Nguyen. Since being home patient is also been incontinent of urine which is unusual for him. also states that he has been quite forgetful of late and is wondering if he may be developing dementia. She denies any chest pain or abdominal pain. Has not had a fever. also states that he still has the dressing on his right groin from the heart cath and was not sure when she was supposed to remove that.] Physical Examination: [HEENT-PERRLA, EOMI. Cranial nerves II through XII grossly intact. TMs clear. Mucous membranes moist. No adenopathy. Cardiovascular-regular rate and rhythm without murmur or ectopy Lungs-clear to auscultation, chest wall stable without crepitus or subcu emphysema Abdomen-normoactive bowel sounds, soft, nontender, no rebound or rigidity, no peritoneal signs. Extremities-intact ?4, normal range of motion, normal pulses, atraumatic]. Patient does have a OpSite dressing in the right groin and there is some faint ecchymosis about the right groin. Test Results: [Abdominal x-rays obtained showed no foreign bodies in the soft tissues. CBC with differential showing a 6.3, hemoglobin 10.9, hematocrit 35, platelets 225. Chemistries unremarkable. BUN was 28 creatinine 2.12. Urinalysis was normal. Troponin was 0.893 which is down significantly from where it had been.] Emergency Department Course and Treatment: [Patient was evaluated by social workers in the emergency department as initially family had wondered about possibly having patient admitted to the transitional care unit for rehab. At this point it was deemed that patient does have help that is coming into the home and they were actually supposed to have visiting nursing staff come in today. They do not want to be admitted for assisted placement.] Treatment Plan: [Follow-up with primary care physician as needed.] I spoke with Dr. Nguyen who stated that they can remove the dressing at any time and keep their follow-up appointment with him. Disposition: [Discharged home in stable condition] Impression: [Concern for foreign body and soft tissue of abdomen-none seen Confusion-chronic] This note was generated with iWeebo dictation software. It may contain incorrect words, spelling, and punctuation that were not noted in review of the chart prior to signing ED Disposition - Plan for ED Patient: Chief Complaint: Foreign Body Referrals: Issa Trinidad MD [Primary Care Provider] -
--- NOTE | 2017-11-25 16:06 | ED.DEP ---
ED Disposition - Plan for ED Patient: Chief Complaint: Foreign Body Instructions: ED Confusion Referrals: Issa Trinidad MD [Primary Care Provider] - 3-5 Days
[2017-11-25 16:14] VITALS: BP 136/74; PULSE 68; RESP 17; O2SAT 96
--- NOTE | 2017-11-25 16:23 | CM.ED ---
Social Work Note [place] back from [facility] who is not able to accept d/t pt not having a qualifying diagnosis. Discuss with pt and pt's sister. Plan is to return home with implementation of [facility] and [facility]. Educated to local neurologists, d/t concern of dementia, and to palliative care services. Per sister and pt they see a neurologist in [place]. They are agreeable to a palliative care consult. No further needs at this time. Initial referral to [facility] for palliative care services faxed. Plan: Home with resumptions of HHC and CCN. Palliative care consult made. Jessica Garcia, GUARD CHIEF, OCC THER
== END 2017-11-25 16:15 | disposition home or self-care (01) ==
PROVIDERS: Emergency Provider Emergency Medicine; Family Provider Family Medicine; PCP Family Medicine
DX: R41.0 Disorientation, unspecified (principal); R32 Unspecified urinary incontinence; E11.9 Type 2 diabetes mellitus without complications; I10 Essential (primary) hypertension; I25.10 Atherosclerotic heart disease of native coronary artery without angina pectoris; E78.00 Pure hypercholesterolemia, unspecified
CPT/HCPCS: 74018; 80048; 81001; 84484; 85025; 93005; 99283; J7030; A4216

== ENCOUNTER → 2017-12-08 08:19 | Outpatient (CLI) | payer MEDICARE, SELFPAY ==
[2017-11-19 09:37] VITALS: BMI 31.8
[2017-12-08 10:06] LABS: AST(SGOT) 27 U/L (15-37); Alanine Aminotransfer ALT/SGPT 33 U/L (16-61); Albumin, Serum 2.9 g/dL (3.2-5.0); Alkaline Phosphatase 132 U/L (45-117); Bilirubin, Direct 0.09 mg/dL (0.00-0.30); Cholesterol 110 mg/dL (200); Globulin 4.3 g/dL (2.2-4.2); High Density Lipoprotein 38 mg/dL; Protein, Total 7.2 g/dL (6.4-8.2); Triglycerides 213 mg/dL; Very Low Density Lipoprotein 43 mg/dL (5-40)
== END ==
PROVIDERS: Family Provider Family Medicine; PCP Family Medicine; Visit Provider Internal Medicine Cardiovascular Disease
DX: I25.10 Atherosclerotic heart disease of native coronary artery without angina pectoris (principal); I21.3 ST elevation (STEMI) myocardial infarction of unspecified site; E78.5 Hyperlipidemia, unspecified; Z95.5 Presence of coronary angioplasty implant and graft
CPT/HCPCS: 36415; 80061; 80076

== ENCOUNTER 2018-01-01 10:01 | Observation (INO) | payer MEDICARE, MEDICAID, SELFPAY ==
[2017-11-19 09:37] VITALS: BMI 31.8
[2018-01-01] VITALS (14 sets, daily range): BP systolic 129–167; BP diastolic 59–93; PULSE 62–76; RESP 14–18; TEMP 36.2–36.5; O2SAT 95–100; BMI 30.4
--- NOTE | 2018-01-01 10:25 | EKG12_ITS ---
Test Reason : CP Blood Pressure : / mmHG Vent. Rate : 071 BPM Atrial Rate : 071 BPM P-R Int : 224 ms QRS Dur : 116 ms QT Int : 402 ms P-R-T Axes : 056 069 -80 degrees QTc Int : 436 ms Sinus rhythm with 1st degree A-V block with Premature atrial complexes ST & T wave abnormality, consider inferior ischemia Abnormal ECG Confirmed by GRETA JASON, CHARI ([id number]), news videotape editor TERESA BOWEN ([id number]) on 01/05/2018 3:20:18 PM Referred By: ASHLEY Confirmed By:CHARI HERNANDES MD
[2018-01-01 10:33] LABS: Absolute Lymphocyte Count 2.62 X10^3/ul (0.83-4.51); Absolute Neutrophil Count 3.7 X10^3/uL (2.0-7.7); Basophil# 0.02 X10^3/uL; Basophil% 0.3 % (0-1); Eosinophil# 0.34 X10^3/uL; Eosinophils% 4.4 % (0-5); Hematocrit 36.2 % (40-54); Hemoglobin 11.4 g/dl (13.0-16.5); Lymphocyte # 2.62 X10^3/ul (4.0); Mean Corp Hgb Conc 31.5 g/gl (32-36); Mean Corpuscular Hgb 31.2 pg (27.0-32.0); Mean Corpuscular Volume 99.2 fL (80-94); Mean Platelet Vol. 9.9 fl (6.2-12.0); Monocyte# 0.98 X10^3/uL; Monocyte% 12.7 % (0-10); Neutrophil # 3.73 X10^3/uL (2.7-7.7); Neutrophil % 48.3 % (47-70); Platelet Count 283 K/mm3 (150-450); RBC Distribution Width CV 13.5 % (11.6-14.6); RBC Distribution Width SD 48.7 fl (35.1-43.9); Red Blood Count 3.65 M/mm3 (4.6-6.2); White Blood Count 7.7 K/mm3 (4.4-11.0)
[2018-01-01 10:34] LABS: POSITIVE COUNT NO; POSITIVE DIFFERENTIAL NO; POSITIVE MORPHOLOGY NO
--- NOTE | 2018-01-01 10:35 | RAD_ITS ---
STUDY: X-RAY CHEST REASON FOR EXAM: Male, 67 years old. MIDSTERNAL CHEST PRESSURE, HX OF AR x2 MONTHS AGO TECHNIQUE: Single AP portable view of the chest. COMPARISON: Chest x-ray November 19, 2017, CT abdomen and pelvis July 24, 2015 FINDINGS: Cardiac monitoring leads are present. Mild hypoventilatory changes noted at the lung bases greater on the left with decreased visibility of the left hemidiaphragm since prior study. There are bilateral pericardial fat pads are prominent, this is seen in retrospective review of the CT abdomen and pelvis and contributes to the appearance. The upper lungs remain clear though hyperlucent suggesting probable underlying COPD. There is no demonstrated pleural abnormality. Normal size heart. Normal mediastinum and prerna. Normal visualized pulmonary arteries. There is atherosclerotic tortuosity of the aortic arch and descending thoracic aorta. Normal visualized thoracic spine. Normal visualized ribs, clavicles, and shoulders. There is no demonstrated abnormality of the visualized soft tissue structures of the upper abdomen. RAD/Chest 1 View (Portable) IMPRESSION: Mild hypoventilatory change at the left lung base. No evidence of acute failure. Suspect probable underlying COPD. Electronically Signed: Suzanne Lo MD at 11:02 EDT , Service support ,
--- NOTE | 2018-01-01 10:47 | ED.DCSUM_ITS ---
- ER Visit Summary Date of Service: 01/01/18 Chief Complaint: [] Intermittent chest pain for 2 days History of Present Illness: The patient is a 67 M [] of diabetes hypertension recent NH in October, [address] Nguyen, he also has history of unspecified speech impediment, gait instability uses a cane ports of having intermittent chest pressure for the last 2 days no fever no cough no abdominal pain nothing triggers or really relieves the pain it comes and goes it is not typical of his angina that preceded the cardiac stent. His other health conditions have been stable. He does have attached to his body what appears to be a 30-day event monitor but he reports he has not noticed any obvious tachycardia or racing heart, his bowel and bladder habits been normal he reports he has developed an area of skin thickness to the left medial thigh region from insulin injections and so he is now injecting insulin and other parts of his body, he has no history of DVT or PE Physical Examination: [] Resting comfortably in the bed his vital signs are within normal range he has beach impediment but he has no history of stroke or seizure his HEENT exam is unremarkable the neck is supple the lungs are clear the heart tones are normal the abdomen soft nontender obese he is awake alert moving all 4 extremities he does have some skin fullness to the left medial thigh from insulin injections there is no signs of a DVT infection or other acute gross abnormalities neurologically he is awake to his baseline moving all 4 Test Results: [] Emergency Department Course and Treatment: [] Screening labs are obtained EKG shows a sinus rhythm nothing acute The patient's labs chest x-ray unremarkable, but the sister is concerned that he cannot function at home since his NH he has had more difficulty he believes he may require different type of living arrangement His recent NH the chest pain in all the above I have asked the hospitalist see the patient for further management admission Treatment Plan: [] Disposition: [] Admit pending hospitalist evaluation Impression: [] Chest pain, recent NH, functional decline with current living situation This note was generated with Travolver dictation software. It may contain incorrect words, spelling, and punctuation that were not noted in review of the chart prior to signing ED Disposition - Plan for ED Patient: Chief Complaint: Chest Pain Referrals: Issa Trinidad MD [Primary Care Provider] -
[2018-01-01 10:53] LABS: Anion Gap 7 (5-15); BUN 35 mg/dL (7-18); BUN/Creat Ratio 16.1 RATIO (10-20); Calcium,Total 8.8 mg/dL (8.5-10.1); Chloride 108 mmol/L (98-107); Creatinine, Serum 2.17 mg/dL (0.70-1.30); EST Glomerular Filtration Rate 32 mL/min (>60); Est Glom Filt Rate - Afr Amer 39 mL/min (>60); Estimated Creatinine Clearance 33.17 ml/min; Glucose 68 mg/dL (74-106); Potassium 4.1 mmol/L (3.5-5.1); Sodium Level 142 mmol/L (136-145)
[2018-01-01] MEDS: 0.9% Normal Saline 1,000 ML 30 ML IV (10:54)
[2018-01-01] MEDS: Aspirin 81 MG TAB.CHEW 324 MG PO (10:56)
[2018-01-01 11:02] LABS: BNP,B-Type NATRIURETIC PEPTIDE 71.3 pg/mL (0-100)
[2018-01-01 11:35] LABS: D-Dimer Quantitative (DVT/PE) 0.39 FEU/ug/m (0.27-0.49)
--- NOTE | 2018-01-01 12:22 | NURSING ---
DR MIREYA GUAMAN
--- NOTE | 2018-01-01 12:29 | NURSING ---
PCU OBS CP MIREYA
--- NOTE | 2018-01-01 12:30 | CM.ED ---
CM INITIAL ASSESSMENT: Patient currently in the ED. His sister, Em Rose, is at his bedside. No other family present at this time. Home: Patient states he lives in a two story home with basement. He has first floor setup. His sister, Em Rose, lives on the upper level. HHS/Aides: Patient had [facility] recently, though not currently. He states he would like to resume therapy at [facility] outpatient center with a Codie Padilla PT. His sister, Em, and other family, drive him to all appointments. The patient does not have a drivers license at this time. He has no aide services. DME: Patient states he uses a walker and cane. He denies DME needs. Home Oxygen: Denies use. Pharmacy: [facility] Directives: Em Rose, sister, is medical power of transactional attorney. Documents are verified in e-chart. PCP: Issa Trinidad Specialists: Dr. Nguyen, cardiology. Patient has an appointment with neurology, Irene Gibson, on January 22. Patient also has an appointment with [facility] on February 19. Per patient, this was arranged by Dr. Trinidad's social media manager. [facility] Plan: At this time the plan is for the patient to go home, with support from sister. CM was made aware that patient's sister, Ann Marie Cardoso, had concerns with patient's current living arrangements. Call placed to patient's sister, Ann Marie, with no answer. Recommended palliative care to patient. Patient and sister, Em, state they once had this but no longer do.Call placed to [facility]. They confirmed that the patient is currently receiving their services. Suzanne states they have had their social media manager out to visit him. They have been in the home four times in the past month. New clinicals faxed to [facility]. CM/SW will continue to follow for safe and effective discharge planning.
--- NOTE | 2018-01-01 12:39 | PCM.HP.STD ---
Problem List (1) Atherosclerotic heart disease of [place] coronary artery without angina pectoris Status: Chronic Comment: Anterior STEMI, LAURE to mid LAD: 2.5 X [address] Nguyen @ [facility] (2) Stented coronary artery Status: Chronic Comment: LAURE to mid LAD: 2.5 X [address] Nguyen @ [facility] (3) STEMI (ST elevation myocardial infarction) Status: Chronic Qualifiers: Involved coronary artery: right coronary artery Qualified Code(s): I21.11 - ST elevation (STEMI) myocardial infarction involving right coronary artery Comment: Anterior STEMI (4) Diabetes mellitus, type II Status: Chronic Qualifiers: Diabetes mellitus intermediate teacher insulin use: with alf use Diabetes mellitus complication status: with unspecified complications Qualified Code(s): E11.8 - Type 2 diabetes mellitus with unspecified complications; Z79.4 - detention (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 Range 58-200+ He does have a pattern of waking with low Bg. Will reduce his pm lantus today and have him call back office with any further low BG. Reports taking insulin as directed as well as his oral agents. Is due for labs and I have ask him to do these today or tomorrow. BP recheck 134/76 (5) Bipolar disorder Status: Chronic Qualifiers: Active/Remission status: remission status unspecified Qualified Code(s): F31.9 - Bipolar disorder, unspecified (6) Atrial fibrillation Status: Chronic Qualifiers: Atrial fibrillation type: paroxysmal Qualified Code(s): I48.0 - Paroxysmal atrial fibrillation (7) Hyperlipidemia Status: Chronic Qualifiers: Hyperlipidemia type: pure hypercholesterolemia Qualified Code(s): E78.00 - Pure hypercholesterolemia, unspecified; E78.0 - Pure hypercholesterolemia (8) Neuropathy Status: Chronic (9) Hypertension Status: Chronic Qualifiers: Hypertension type: essential hypertension Qualified Code(s): I10 - Essential (primary) hypertension (10) Gout Status: Chronic Qualifiers: Gout site: unspecified site Gout etiology: unspecified cause Chronicity: unspecified Qualified Code(s): M10.9 - Gout, unspecified (11) Traumatic brain injury Status: Chronic (12) Arthritis Status: Chronic (13) Cellulitis Status: Acute History of Present Illness Date of Admission: 01/01/18 Chief Complaint: Chest pain The patient is a 67 year old M with significant past cardiac history including acute ST segment elevation AK involving the anterior wall on 11/19/2017 for which patient underwent LAURE/PTCA to his mid LAD. Patient presents with chest pain. Onset of pain 2 days prior to his admission. Patient described pain as pressure similar to what he experienced in October when he had his AK. Patient denied any lightheadedness no shortness of breath no nausea no vomiting. Presented to the emergency department where initial set of cardiac enzymes came back unremarkable. Given his significant past cardiac history decision was made to admit patient to monitored bed for subsequent evaluation. Past Medical History Past Medical History (Chronic Problems): Chronic Problems (Last Reviewed 01/01/18 @ 13:50 by Av Roach MD) Atherosclerotic heart disease of [place] coronary artery without angina pectoris (Chronic) Anterior STEMI, LAURE to mid LAD: 2.5 X [address] Nguyen @ [facility] Stented coronary artery (Chronic 11/19/17) LAURE to mid LAD: 2.5 X [address] Nguyen @ [facility] STEMI (ST elevation myocardial infarction) (Chronic 11/19/17) Anterior STEMI Diabetes mellitus, type II (Chronic) BG readings checked at various times of day. Range 58-200+ He does have a pattern of waking with low Bg. Will reduce his pm lantus today and have him call back office with any further low BG. Reports taking insulin as directed as well as his oral agents. Is due for labs and I have ask him to do these today or tomorrow. BP recheck 134/76 Bipolar disorder (Chronic) Atrial fibrillation (Chronic) Hyperlipidemia (Chronic) Neuropathy (Chronic) Hypertension (Chronic) Gout (Chronic) Traumatic brain injury (Chronic) Arthritis (Chronic) Medical History: Medical History (Last Reviewed 01/01/18 @ 13:50 by Av Roach MD) Atherosclerotic heart disease of [place] coronary artery without angina pectoris (Chronic) I25.10 Anterior STEMI, LAURE to mid LAD: 2.5 X [address] Nguyen @ [facility] STEMI (ST elevation myocardial infarction) (Chronic) Onset Date: 11/19/17 I21.3 Anterior STEMI Diabetes mellitus, type II (Chronic) E11.9 BG readings checked at various times of day. Range 58-200+ He does have a pattern of waking with low Bg. Will reduce his pm lantus today and have him call back office with any further low BG. Reports taking insulin as directed as well as his oral agents. Is due for labs and I have ask him to do these today or tomorrow. BP recheck 134/76 Bipolar disorder (Chronic) F31.9 Hyperlipidemia (Chronic) E78.5 Neuropathy (Chronic) G62.9 Hypertension (Chronic) I10 Traumatic brain injury (Chronic) S06.9X9A Arthritis (Chronic) M19.90 Afib I48.91 Anxiety F41.9 Arthritis M19.90 Back problem M53.9 Cataracts, bilateral H26.9 Depression F32.9 Diabetes type 2, controlled E11.9 GI problem R19.8 Headache R51 Heart disease I51.9 High cholesterol E78.00 Kidney disease N28.9 Osteoarthritis M19.90 Recurrent UTI N39.0 Seasonal allergies J30.2 HTN (hypertension) I10 Allergies atorvastatin [From Lipitor] Allergy (Verified 01/01/18 10:02) Unknown Penicillins Allergy (Verified 01/01/18 10:02) Unknown lisinopril Adverse Reaction (Unknown, Verified 01/01/18 10:02) unknown codeine Adverse Reaction (Verified 01/01/18 10:02) Upset Stomach doxycycline Adverse Reaction (Verified 01/01/18 10:02) Other nickel Adverse Reaction (Verified 01/01/18 10:02) Rash LYCOPEEN Adverse Reaction (Uncoded 01/01/18 10:02) Other Home Medications: Ambulatory Orders Medication Instructions Recorded Divalproex Sodium [Depakote] 1,500 mg PO BID 01/11/13 Glimepiride 2 mg PO DAILY 01/21/16 Esomeprazole Magnesium [Nexium 20 mg PO DAILY 04/09/16 24Hr] Ferrous Sulfate [Iron] 325 mg PO DAILY 04/09/16 Flecainide [Tambocor] 150 mg PO DAILY 04/09/16 Gabapentin [Neurontin] 600 mg PO DAILY 04/09/16 Levothyroxine [Synthroid] 100 mcg PO DAILY 09/07/16 Multivitamin [Daily Multiple 1 tab PO DAILY 09/07/16 Vitamin] aspirin 81 mg tablet,delayed 81 mg PO QDAY 02/27/17 release diclofenac 1 % topical gel 2 g TOPICAL 4X/DAY g 02/27/17 insulin detemir (U-100) 100 40 unit SC BID ml 02/27/17 unit/mL (3 mL) subcutaneous pen nitroglycerin 0.4 mg sublingual 0.4 mg SUBLINGUAL Q5M PRN 02/27/17 tablet oxcarbazepine 300 mg tablet 300 mg PO BID 02/27/17 tizanidine 2 mg capsule 2 mg PO Q6H PRN cap 02/27/17 tramadol 50 mg tablet 50 mg PO Q8H PRN tab 02/27/17 Atorvastatin Calcium [Lipitor] 80 mg PO QHS #30 tab 11/21/17 Carvedilol [Coreg (Beta [place])] 6.25 mg PO BID #60 tab 11/21/17 Ticagrelor [Brilinta] 90 mg PO BID #60 tab 11/21/17 Erythromycin Ophthalmic [(None)] 1 applic OPHTHALMIC DAILY 01/01/18 Gabapentin [Neurontin] 300 mg PO QHS 01/01/18 Liraglutide [Victoza] 1.2 mg SQ DAILY 01/01/18 Oxybutynin [Ditropan] 5 mg PO TID 01/01/18 Perphenazine 4 mg PO QHS 01/01/18 Surgical History: Surgical History (Last Reviewed 01/01/18 @ 13:50 by Av Roach MD) Stented coronary artery (Chronic) Onset Date: 11/19/17 Z95.5 LAURE to mid LAD: 2.5 X [address] Nguyen @ [facility] Surgical History: - - Cardiac catheterization, T+A, R cataract, L shoulder surgery, R TKR. Psychiatric History: Bipolar, Schizophrenia Smoking Status: Never smoker - *Family History Maternal Family History: Family History (Last Reviewed 01/01/18 @ 13:50 by Av Roach MD) Father Arthritis Bleeding disorder Heart disease Hypertension Mother Hypertension History Items: - - Mother with a history of hypertension. Paternal Family History: Family History (Last Reviewed 01/01/18 @ 13:50 by Av Roach MD) Father Arthritis Bleeding disorder Heart disease Hypertension Mother Hypertension History Items: - - Father with a history of heart disease, coronary disease status post CABG ?2. Review of Systems Constitutional: Denies: Anorexia, Chills, Fever, Night Sweats, Weight Change HEENT: Denies: Head Aches Cardiovascular: Reports: Chest Pain. Denies: Orthopnea Respiratory: Denies: Cough, Shortness of breath at rest, Shortness of breath upon exertion, Sputum production Gastrointestinal: Denies: Abdominal Pain, Hematemesis, Hematochezia Genitourinary: Denies: Dysuria, Frequency, Hematuria, Urgency Musculoskeletal: Denies: Joint Pain, Joint Tenderness Skin: Denies: Rash Neurological: Denies: Focal weakness, Numbness, Tingling Psychiatric: Denies: Homicidal Ideations, Suicidal Ideations Hematologic/ Lymphatic: Denies: Easy Bruising, Easy Bleeding VTE Information - Inpt Only VTE Present on Admission: No VTE Mechan Device Prophylaxis: Knee High GUILLERMINA Hose VTE Pharm Prophylaxis ordered?: Yes Objective: GENERAL: cooperative HEENT: Atraumatic; moist oral mucosa EYES; Anicteric, Normal Conjunctiva NECK; supple, normal thyroid, no distended JVD. RESPIRATORY: Diminished to auscultation bilaterally, CARDIOVASCULAR: Regular S1 S2, no audible murmurs GI: soft, non-tender, normoactive bowel sounds, : No Renal angle tenderness; EXTREMITIES: No edema, no clubbing, no cyanosis. MUSCULOSKELETAL: No Joint Tenderness; no muscle waisting NEURO: Awake; no lateralizing signs. SKIN: No Rash PSYCH; Normal affect - Physical Exam Vital Signs Temp Pulse Resp BP Pulse Ox 97.6 F L 69 18 146/80 H 98 01/01/18 10:03 01/01/18 12:38 01/01/18 12:38 01/01/18 12:38 01/01/18 12:38 Oxygen Flow Rate (L/min) 2 Oxygen Delivery Method Nasal Cannula Weight: 96.2 kg Body Mass Index (BMI) 30.4 Finger Stick Blood Glucose 152 Laboratory Tests Past 24 Hrs 01/01/18 01/01/18 01/01/18 10:10 10:10 10:10 WBC 7.7 RBC 3.65 L Hgb 11.4 L Hct 36.2 L MCV 99.2 H MCH 31.2 MCHC 31.5 L RDW 13.5 RDW Differential 48.7 H Plt Count 283 MPV 9.9 Immature Gran % (Auto) 0.300 Neut % (Auto) 48.3 Lymph % (Auto) 34.0 [place] % (Auto) 12.7 H Eos % (Auto) 4.4 Baso % (Auto) 0.3 Absolute Neuts (auto) 3.7 Absolute Lymphs (auto) 2.62 Total Counted Not Reportable D-Dimer Quant (PE/DVT) Sodium 142 Potassium 4.1 Chloride 108 H Carbon Dioxide 27.0 Anion Gap 7 BUN 35 H Creatinine 2.17 H Estim Creat Clear Calc 33.17 Est GFR (MDRD) Af Amer 39 L Est GFR (MDRD) Non-Af 32 L BUN/Creatinine Ratio 16.1 Glucose 68 L Calcium 8.8 Troponin I < 0.015 B-Natriuretic Peptide 71.3 01/01/18 10:10 WBC RBC Hgb Hct MCV MCH MCHC RDW RDW Differential Plt Count MPV Immature Gran % (Auto) Neut % (Auto) Lymph % (Auto) [place] % (Auto) Eos % (Auto) Baso % (Auto) Absolute Neuts (auto) Absolute Lymphs (auto) Total Counted D-Dimer Quant (PE/DVT) 0.39 Sodium Potassium Chloride Carbon Dioxide Anion Gap BUN Creatinine Estim Creat Clear Calc Est GFR (MDRD) Af Amer Est GFR (MDRD) Non-Af BUN/Creatinine Ratio Glucose Calcium Troponin I B-Natriuretic Peptide Assessment/Plan All Active Problems (Last Reviewed 01/01/18 @ 13:50 by Av Roach MD) Scalp laceration (Resolved) Cellulitis (Acute) Change in mental status (Resolved) Patient is a 67-year-old gentleman with history of recent anterior wall ST segment elevation AK with subsequent PTCA/LAURE to his mid LAD on 11/19/2017 who presents with chest pain 1. Chest pain patient has been admitted to a monitored bed. Plan is to rule out AK with serial cardiac enzymes, patient undergo a nuclear stress test if AK is ruled out with dobutamine stress echo which was discussed with patient's primary puff iron operator Dr. Nguyen. Plan is to consult him if patient stress test comes back abnormal 2. Atherosclerotic heart disease of [place] coronary artery with Anterior STEMI, LAURE to mid LAD on 11/19/17 3. Dyslipidemia: Patient is on atorvastatin 4. Paroxysmal atrial fibrillation 5. Diabetes mellitus type 2 medications including diabetic nephropathy as well as polyneuropathy 6. Hypertension-blood pressure controlled, home medications continued with dose adjustment as needed 7. Chronic kidney disease stage III patient kidney function at baseline 8. Bipolar disorder 9. 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 History of traumatic brain injury patient lives with his sister at home 11. Generalized osteoarthritis 12. Morbid obesity Advance planning; did discuss with the patient and family regarding her advanced directives as well as CODE STATUS. Did explain the various modalities involved ( FULL CODE, DNR CCA, DNR CCA with no intubation, and DNR CC ) patient elected to remain full code. Order was placed. Time spent on discussion 18 minutes. Clinical Impression(s) from Imaging Studies Chest X-Ray 01/01/18 10:35 IMPRESSION: Mild hypoventilatory change at the left lung base. No evidence of acute failure. Suspect probable underlying COPD. Electronically Signed: Suzanne Lo MD at 11:02 EDT , Service support , Code Visit OBSV E&M: [id number] Initial observation care L3 Procedures: 34668 Advncd Care Plan 30 Min
--- NOTE | 2018-01-01 12:44 | HP.PCM_ITS ---
Problem List (1) Atherosclerotic heart disease of [place] coronary artery without angina pectoris Status: Chronic Comment: Anterior STEMI, LAURE to mid LAD: 2.5 X [address] Nguyen @ [facility] (2) Stented coronary artery Status: Chronic Comment: LAURE to mid LAD: 2.5 X [address] Nguyen @ 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 Range 58-200+ He does have a pattern of waking with low Bg. Will reduce his pm lantus today and have him call back office with any further low BG. Reports taking insulin as directed as well as his oral agents. Is due for labs and I have ask him to do these today or tomorrow. BP recheck 134/76 (5) Bipolar disorder Status: Chronic Qualifiers: Active/Remission status: remission status unspecified Qualified Code(s): F31.9 - Bipolar disorder, unspecified (6) Atrial fibrillation Status: Chronic Qualifiers: Atrial fibrillation type: paroxysmal Qualified Code(s): I48.0 - Paroxysmal atrial fibrillation (7) Hyperlipidemia Status: Chronic Qualifiers: Hyperlipidemia type: pure hypercholesterolemia Qualified Code(s): E78.00 - Pure hypercholesterolemia, unspecified; E78.0 - Pure hypercholesterolemia (8) Neuropathy Status: Chronic (9) Hypertension Status: Chronic Qualifiers: Hypertension type: essential hypertension Qualified Code(s): I10 - Essential (primary) hypertension (10) Gout Status: Chronic Qualifiers: Gout site: unspecified site Gout etiology: unspecified cause Chronicity: unspecified Qualified Code(s): M10.9 - Gout, unspecified (11) Traumatic brain injury Status: Chronic (12) Arthritis Status: Chronic (13) Cellulitis Status: Acute History of Present Illness Date of Admission: 01/01/18 Chief Complaint: Chest pain The patient is a 67 year old M with significant past cardiac history including acute ST segment elevation MT involving the anterior wall on 11/19/2017 for which patient underwent LAURE/PTCA to his mid LAD. Patient presents with chest pain. Onset of pain 2 days prior to his admission. Patient described pain as pressure similar to what he experienced in October when he had his MT. Patient denied any lightheadedness no shortness of breath no nausea no vomiting. Presented to the emergency department where initial set of cardiac enzymes came back unremarkable. Given his significant past cardiac history decision was made to admit patient to monitored bed for subsequent evaluation. Past Medical History Past Medical History (Chronic Problems): Chronic Problems (Last Reviewed 01/01/18 @ 13:50 by Av Roach MD) Atherosclerotic heart disease of [place] coronary artery without angina pectoris (Chronic) Anterior STEMI, LAURE to mid LAD: 2.5 X [address] Nguyen @ [facility] Stented coronary artery (Chronic 11/19/17) LAURE to mid LAD: 2.5 X [address] Nguyen @ [facility] STEMI (ST elevation myocardial infarction) (Chronic 11/19/17) Anterior STEMI Diabetes mellitus, type II (Chronic) BG readings checked at various times of day. Range 58-200+ He does have a pattern of waking with low Bg. Will reduce his pm lantus today and have him call back office with any further low BG. Reports taking insulin as directed as well as his oral agents. Is due for labs and I have ask him to do these today or tomorrow. BP recheck 134/76 Bipolar disorder (Chronic) Atrial fibrillation (Chronic) Hyperlipidemia (Chronic) Neuropathy (Chronic) Hypertension (Chronic) Gout (Chronic) Traumatic brain injury (Chronic) Arthritis (Chronic) Medical History: Medical History (Last Reviewed 01/01/18 @ 13:50 by Av Roach MD) Atherosclerotic heart disease of [place] coronary artery without angina pectoris (Chronic) I25.10 Anterior STEMI, LAURE to mid LAD: 2.5 X [address] Nguyen @ [facility] STEMI (ST elevation myocardial infarction) (Chronic) Onset Date: 11/19/17 I21.3 Anterior STEMI Diabetes mellitus, type II (Chronic) E11.9 BG readings checked at various times of day. Range 58-200+ He does have a pattern of waking with low Bg. Will reduce his pm lantus today and have him call back office with any further low BG. Reports taking insulin as directed as well as his oral agents. Is due for labs and I have ask him to do these today or tomorrow. BP recheck 134/76 Bipolar disorder (Chronic) F31.9 Hyperlipidemia (Chronic) E78.5 Neuropathy (Chronic) G62.9 Hypertension (Chronic) I10 Traumatic brain injury (Chronic) S06.9X9A Arthritis (Chronic) M19.90 Afib I48.91 Anxiety F41.9 Arthritis M19.90 Back problem M53.9 Cataracts, bilateral H26.9 Depression F32.9 Diabetes type 2, controlled E11.9 GI problem R19.8 Headache R51 Heart disease I51.9 High cholesterol E78.00 Kidney disease N28.9 Osteoarthritis M19.90 Recurrent UTI N39.0 Seasonal allergies J30.2 HTN (hypertension) I10 Allergies atorvastatin [From Lipitor] Allergy (Verified 01/01/18 10:02) Unknown Penicillins Allergy (Verified 01/01/18 10:02) Unknown lisinopril Adverse Reaction (Unknown, Verified 01/01/18 10:02) unknown codeine Adverse Reaction (Verified 01/01/18 10:02) Upset Stomach doxycycline Adverse Reaction (Verified 01/01/18 10:02) Other nickel Adverse Reaction (Verified 01/01/18 10:02) Rash LYCOPEEN Adverse Reaction (Uncoded 01/01/18 10:02) Other Home Medications: Ambulatory Orders Medication Instructions Recorded Divalproex Sodium [Depakote] 1,500 mg PO BID 01/11/13 Glimepiride 2 mg PO DAILY 01/21/16 Esomeprazole Magnesium [Nexium 20 mg PO DAILY 04/09/16 24Hr] Ferrous Sulfate [Iron] 325 mg PO DAILY 04/09/16 Flecainide [Tambocor] 150 mg PO DAILY 04/09/16 Gabapentin [Neurontin] 600 mg PO DAILY 04/09/16 Levothyroxine [Synthroid] 100 mcg PO DAILY 09/07/16 Multivitamin [Daily Multiple 1 tab PO DAILY 09/07/16 Vitamin] aspirin 81 mg tablet,delayed 81 mg PO QDAY 02/27/17 release diclofenac 1 % topical gel 2 g TOPICAL 4X/DAY g 02/27/17 insulin detemir (U-100) 100 40 unit SC BID ml 02/27/17 unit/mL (3 mL) subcutaneous pen nitroglycerin 0.4 mg sublingual 0.4 mg SUBLINGUAL Q5M PRN 02/27/17 tablet oxcarbazepine 300 mg tablet 300 mg PO BID 02/27/17 tizanidine 2 mg capsule 2 mg PO Q6H PRN cap 02/27/17 tramadol 50 mg tablet 50 mg PO Q8H PRN tab 02/27/17 Atorvastatin Calcium [Lipitor] 80 mg PO QHS #30 tab 11/21/17 Carvedilol [Coreg (Beta Tulio)] 6.25 mg PO BID #60 tab 11/21/17 Ticagrelor [Brilinta] 90 mg PO BID #60 tab 11/21/17 Erythromycin Ophthalmic [(None)] 1 applic OPHTHALMIC DAILY 01/01/18 Gabapentin [Neurontin] 300 mg PO QHS 01/01/18 Liraglutide [Victoza] 1.2 mg SQ DAILY 01/01/18 Oxybutynin [Ditropan] 5 mg PO TID 01/01/18 Perphenazine 4 mg PO QHS 01/01/18 Surgical History: Surgical History (Last Reviewed 01/01/18 @ 13:50 by Av Roach MD) Stented coronary artery (Chronic) Onset Date: 11/19/17 Z95.5 LAURE to mid LAD: 2.5 X [address] Nguyen @ [facility] Surgical History: - - Cardiac catheterization, T+A, R cataract, L shoulder surgery, R TKR. Psychiatric History: Bipolar, Schizophrenia Smoking Status: Never smoker - *Family History Maternal Family History: Family History (Last Reviewed 01/01/18 @ 13:50 by Av Roach MD) Father Arthritis Bleeding disorder Heart disease Hypertension Mother Hypertension History Items: - - Mother with a history of hypertension. Paternal Family History: Family History (Last Reviewed 01/01/18 @ 13:50 by Av Roach MD) Father Arthritis Bleeding disorder Heart disease Hypertension Mother Hypertension History Items: - - Father with a history of heart disease, coronary disease status post CABG ?2. Review of Systems Constitutional: Denies: Anorexia, Chills, Fever, Night Sweats, Weight Change HEENT: Denies: Head Aches Cardiovascular: Reports: Chest Pain. Denies: Orthopnea Respiratory: Denies: Cough, Shortness of breath at rest, Shortness of breath upon exertion, Sputum production Gastrointestinal: Denies: Abdominal Pain, Hematemesis, Hematochezia Genitourinary: Denies: Dysuria, Frequency, Hematuria, Urgency Musculoskeletal: Denies: Joint Pain, Joint Tenderness Skin: Denies: Rash Neurological: Denies: Focal weakness, Numbness, Tingling Psychiatric: Denies: Homicidal Ideations, Suicidal Ideations Hematologic/ Lymphatic: Denies: Easy Bruising, Easy Bleeding VTE Information - Inpt Only VTE Present on Admission: No VTE Mechan Device Prophylaxis: Knee High GUILLERMINA Hose VTE Pharm Prophylaxis ordered?: Yes Objective: GENERAL: cooperative HEENT: Atraumatic; moist oral mucosa EYES; Anicteric, Normal Conjunctiva NECK; supple, normal thyroid, no distended JVD. RESPIRATORY: Diminished to auscultation bilaterally, CARDIOVASCULAR: Regular S1 S2, no audible murmurs GI: soft, non-tender, normoactive bowel sounds, : No Renal angle tenderness; EXTREMITIES: No edema, no clubbing, no cyanosis. MUSCULOSKELETAL: No Joint Tenderness; no muscle waisting NEURO: Awake; no lateralizing signs. SKIN: No Rash PSYCH; Normal affect - Physical Exam Vital Signs Temp Pulse Resp BP Pulse Ox 97.6 F L 69 18 146/80 H 98 01/01/18 10:03 01/01/18 12:38 01/01/18 12:38 01/01/18 12:38 01/01/18 12:38 Oxygen Flow Rate (L/min) 2 Oxygen Delivery Method Nasal Cannula Weight: 96.2 kg Body Mass Index (BMI) 30.4 Finger Stick Blood Glucose 152 Laboratory Tests Past 24 Hrs 01/01/18 01/01/18 01/01/18 10:10 10:10 10:10 WBC 7.7 RBC 3.65 L Hgb 11.4 L Hct 36.2 L MCV 99.2 H MCH 31.2 MCHC 31.5 L RDW 13.5 RDW Differential 48.7 H Plt Count 283 MPV 9.9 Immature Gran % (Auto) 0.300 Neut % (Auto) 48.3 Lymph % (Auto) 34.0 [place] % (Auto) 12.7 H Eos % (Auto) 4.4 Baso % (Auto) 0.3 Absolute Neuts (auto) 3.7 Absolute Lymphs (auto) 2.62 Total Counted Not Reportable D-Dimer Quant (PE/DVT) Sodium 142 Potassium 4.1 Chloride 108 H Carbon Dioxide 27.0 Anion Gap 7 BUN 35 H Creatinine 2.17 H Estim Creat Clear Calc 33.17 Est GFR (MDRD) Af Amer 39 L Est GFR (MDRD) Non-Af 32 L BUN/Creatinine Ratio 16.1 Glucose 68 L Calcium 8.8 Troponin I < 0.015 B-Natriuretic Peptide 71.3 01/01/18 10:10 WBC RBC Hgb Hct MCV MCH MCHC RDW RDW Differential Plt Count MPV Immature Gran % (Auto) Neut % (Auto) Lymph % (Auto) [place] % (Auto) Eos % (Auto) Baso % (Auto) Absolute Neuts (auto) Absolute Lymphs (auto) Total Counted D-Dimer Quant (PE/DVT) 0.39 Sodium Potassium Chloride Carbon Dioxide Anion Gap BUN Creatinine Estim Creat Clear Calc Est GFR (MDRD) Af Amer Est GFR (MDRD) Non-Af BUN/Creatinine Ratio Glucose Calcium Troponin I B-Natriuretic Peptide Assessment/Plan All Active Problems (Last Reviewed 01/01/18 @ 13:50 by Av Roach MD) Scalp laceration (Resolved) Cellulitis (Acute) Change in mental status (Resolved) Patient is a 67-year-old gentleman with history of recent anterior wall ST segment elevation MT with subsequent PTCA/LAURE to his mid LAD on 11/19/2017 who presents with chest pain 1. Chest pain patient has been admitted to a monitored bed. 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 Nguyen. Plan is to consult him if patient stress test comes back abnormal 2. Atherosclerotic heart disease of [place] coronary artery with Anterior STEMI, LAURE to mid LAD on 11/19/17 3. Dyslipidemia: Patient is on atorvastatin 4. Paroxysmal atrial fibrillation 5. Diabetes mellitus type 2 medications including diabetic nephropathy as well as polyneuropathy 6. Hypertension-blood pressure controlled, home medications continued with dose adjustment as needed 7. Chronic kidney disease stage III patient kidney function at baseline 8. Bipolar disorder 9. 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 History of traumatic brain injury patient lives with his sister at home 11. Generalized osteoarthritis 12. Morbid obesity Advance planning; did discuss with the patient and family regarding her advanced directives as well as CODE STATUS. Did explain the various modalities involved ( FULL CODE, DNR CCA, DNR CCA with no intubation, and DNR CC ) patient elected to remain full code. Order was placed. Time spent on discussion 18 minutes. Clinical Impression(s) from Imaging Studies Chest X-Ray 01/01/18 10:35 IMPRESSION: Mild hypoventilatory change at the left lung base. No evidence of acute failure. Suspect probable underlying COPD. Electronically Signed: Suzanne Lo MD at 11:02 EDT , Service support , Code Visit OBSV E&M: 35652 Initial observation care L3 Procedures: 53580 Advncd Care Plan 30 Min
--- NOTE | 2018-01-01 13:35 | EKG12_ITS ---
Test Reason : ADMISSION Blood Pressure : / mmHG Vent. Rate : 068 BPM Atrial Rate : 068 BPM P-R Int : 000 ms QRS Dur : 102 ms QT Int : 388 ms P-R-T Axes : 000 004 136 degrees QTc Int : 412 ms Accelerated Junctional rhythm Marked ST abnormality, possible lateral subendocardial injury Abnormal ECG Confirmed by GRETA JASON, CHARI ([id number]), publications editor TERESA BOWEN ([id number]) on 01/05/2018 4:12:43 PM Referred By: MIREYA Confirmed By:CHARI HERNANDES MD
[2018-01-01] MEDS: Oxybutynin 5 MG Tablet PO (16:19)
[2018-01-01 16:30] LABS: Bedside Glucose 129 mg/dL (70-110)
[2018-01-01] MEDS: Erythromycin Base 1 OPTH.TUBE 1 APPLIC OPHTHALMIC (18:23)
[2018-01-01] MEDS: Heparin Injection (Vial) 5,000 UNIT/ML VIAL 5000 UNIT SC (21:27)
[2018-01-01] MEDS: Divalproex Sodium 250 MG Tablet 1500 MG PO (21:27)
[2018-01-01] MEDS: Gabapentin 300 MG Capsule PO (21:30)
[2018-01-01] MEDS: TICAGRELOR 90 MG TABLET PO (21:30)
[2018-01-01] MEDS: Carvedilol 6.25 MG Tablet PO (21:30)
[2018-01-01] MEDS: Atorvastatin Calcium 80 MG Tablet PO (21:30)
[2018-01-01] MEDS: OXcarbazepine 300 MG Tablet PO (21:31)
[2018-01-01 22:20] LABS: Bedside Glucose 146 mg/dL (70-110)
[2018-01-02] VITALS (9 sets, daily range): BP systolic 124–156; BP diastolic 79–90; PULSE 68–83; RESP 16–18; TEMP 36.7–36.9; O2SAT 91–100
[2018-01-02 05:26] LABS: Absolute Lymphocyte Count 1.42 X10^3/ul (0.83-4.51); Absolute Neutrophil Count 3.8 X10^3/uL (2.0-7.7); Basophil# 0.01 X10^3/uL; Basophil% 0.2 % (0-1); Eosinophil# 0.26 X10^3/uL; Eosinophils% 4.1 % (0-5); Hematocrit 35.1 % (40-54); Hemoglobin 11.2 g/dl (13.0-16.5); Lymphocyte # 1.42 X10^3/ul (4.0); Lymphocyte % 22.4 % (19-41); Mean Corp Hgb Conc 31.9 g/gl (32-36); Mean Corpuscular Hgb 31.5 pg (27.0-32.0); Mean Corpuscular Volume 98.6 fL (80-94); Mean Platelet Vol. 9.8 fl (6.2-12.0); Monocyte# 0.81 X10^3/uL; Monocyte% 12.8 % (0-10); Neutrophil # 3.83 X10^3/uL (2.7-7.7); Neutrophil % 60.2 % (47-70); Platelet Count 252 K/mm3 (150-450); RBC Distribution Width CV 13.4 % (11.6-14.6); RBC Distribution Width SD 48.2 fl (35.1-43.9); Red Blood Count 3.56 M/mm3 (4.6-6.2); White Blood Count 6.4 K/mm3 (4.4-11.0)
[2018-01-02 05:30] LABS: International Normalized Ratio 1.1; Partial Thromboplast Time 27.7 Seconds (24.1-36.2); Prothrombin Time (Protime)PT. 13.9 SECONDS (11.7-14.9)
[2018-01-02 05:38] LABS: POSITIVE COUNT NO; POSITIVE DIFFERENTIAL NO; POSITIVE MORPHOLOGY NO
[2018-01-02 05:43] LABS: Anion Gap 7 (5-15); BUN 30 mg/dL (7-18); Calcium,Total 9.2 mg/dL (8.5-10.1); Chloride 112 mmol/L (98-107); Creatinine, Serum 1.88 mg/dL (0.70-1.30); EST Glomerular Filtration Rate 38 mL/min (>60); Est Glom Filt Rate - Afr Amer 46 mL/min (>60); Estimated Creatinine Clearance 38.29 ml/min; Glucose 96 mg/dL (74-106); Potassium 4.6 mmol/L (3.5-5.1); Sodium Level 144 mmol/L (136-145)
--- NOTE | 2018-01-02 05:55 | EKG12_ITS ---
Test Reason : MORNING EKG Blood Pressure : / mmHG Vent. Rate : 062 BPM Atrial Rate : 062 BPM P-R Int : 206 ms QRS Dur : 106 ms QT Int : 394 ms P-R-T Axes : 035 -28 118 degrees QTc Int : 399 ms Normal sinus rhythm Incomplete left bundle branch block ST & T wave abnormality, consider lateral ischemia Abnormal ECG Confirmed by TU JASON, NERY ([id number]), production editor TERESA BOWEN ([id number]) on 01/08/2018 11:46:02 AM Referred By: MIREYA Confirmed By:NERY MAE MD
[2018-01-02] MEDS: TICAGRELOR 90 MG TABLET PO (06:18)
[2018-01-02] MEDS: Aspirin E.C. 81 MG Tablet PO (06:18)
[2018-01-02] MEDS: Acetaminophen 325 MG Tablet 650 MG PO ×2 (06:18→13:57)
[2018-01-02] MEDS: Levothyroxine 100 MCG Tablet PO (06:19)
[2018-01-02 06:31] LABS: Bedside Glucose 95 mg/dL (70-110)
--- NOTE | 2018-01-02 07:00 | STEWCON_ITS ---
Reason For Study: CHEST PAIN Stress Results Protocol: Dobutamine Maximum Predicted HR: 151 bpm Target HR: 128 bpm% Maximum Predicted HR: 89 % DurationHeart Rate Stage (mm:ss) (bpm) BPDose Comment BASELINE 71 169/92 3 CC DEFINITY STAGE 1 3:23 62 160/90 10.001CC DEFINITY STAGE 2 3:00 61 215/50416.00 STAGE 3 3:00 12 0 / 30.0 00.25 MG ATROPINE STAGE 4 1:17 13 4 176/42315.001 CC DEFINITY Stage 6 99 173/79 1 CC DEFINITY Stress Duration: 10:40 mm:ss Maximum Stress HR: 134 bpm Baseline Echocardiogram Findings The estimated ejection fraction is 65 %. Stress Echo Wall motion Data Resting WMIntermediate WMStress WM Resting Wall Motion Wall Motion Stress No regional wall motion No regional wall motion abnormalities noted. abnormalities noted. EKG Data The baseline ECG displays normal sinus rhythm. The patient was titrated from 10 mcg to a maximum of 40 mcg of dobutamine during the stress. The maximum heart rate attained was 141 beats per minute. This was 93% of maximum predicted heart rate. During dobutamine infusion, there were no ST or T wave changes noted to suggest ischemia. No clinical angina was noted. No arrhythmias noted. Interpretation Summary The estimated ejection fraction is 65 %. Normal, adequate, dobutamine echocardiogram. Negative for ischemia by EKG and echocardiographic criteria. No anginal symptoms noted. No arrhythmias noted. Hypertensive blood pressure response to dobutamine. Final LVEF is 75%. Test terminated due to target heart rate achieved. Decreased sensitivity due to poor echo windows requiring Definity enhancement. Ordering Physician: Av Roach Referring Physician: Chito Nguyen Performed By: Bridgette Trinidad, SYED, RVT
[2018-01-02] MEDS: Divalproex Sodium 250 MG Tablet 1500 MG PO (10:15)
[2018-01-02] MEDS: Oxybutynin 5 MG Tablet PO ×2 (10:15→13:58)
[2018-01-02] MEDS: Pantoprazole Sodium 20 MG Tablet PO (10:15)
[2018-01-02] MEDS: Multivitamins,Therapeutic Tablet 1 TABLET PO (10:16)
[2018-01-02] MEDS: Gabapentin 600 MG Tablet PO (10:16)
[2018-01-02] MEDS: Carvedilol 6.25 MG Tablet PO (10:16)
[2018-01-02] MEDS: Flecainide 150 MG Tablet PO (10:17)
[2018-01-02] MEDS: OXcarbazepine 300 MG Tablet PO (10:18)
[2018-01-02] MEDS: Erythromycin Base 1 OPTH.TUBE 1 APPLIC OPHTHALMIC (10:19)
[2018-01-02 11:20] LABS: Bedside Glucose 120 mg/dL (70-110)
[2018-01-02] MEDS: Ferrous Sulfate 325 MG Tablet PO (11:31)
--- NOTE | 2018-01-02 13:40 | CASEMGMT ---
Social Work Met with pt and sister Em in room and introduced self and role of SW. Pt lives at home with his sister and reports that he is able to care for himself. After lengthy conversation, sister voicing concern that pt needs to be in a facility. SW informed pt and sister that he could go to a nursing facility if pt feels this is needed however insurance will not cover the cost and pt would be private pay. Both pt and sister deny that they want to pay to go to a SNF. Pt sister expressing concerns about pt medications and that meds need to be changed and that he has many doctors ordering medication. SW encouraged pt and sister to talk to Dr. Roach about these concerns and sister states she has done this. SW also encouraged to talk to PCP about coordinating meds. Later in the conversation pt sister again states pt needs to be in a facility. SW asked what kind of facility she is talking about. Sister states pt should be in a hospital, but not a psychiatric hospital, due to medication concerns. SW again encouraged pt and sister to express medication concerns to physicians. SW spoke with RN LIZ. Pt is currently receiving [facility] RN/PT and SW spoke with Pt and sister and they are agreeable to continue with [facility]. Spoke with pt about [facility] and he is agreeable to this. Referral made to [facility]. No further SW needs at this time. PITO Aponte
--- NOTE | 2018-01-02 15:26 | PCM.PN.HOSP ---
Subjective: Patient seen cardiac enzymes have remained negative to date. Underwent a dobutamine stress test results still pending. Objective: GENERAL: cooperative HEENT: Atraumatic; moist oral mucosa EYES; Anicteric, Normal Conjunctiva NECK; supple, normal thyroid, no distended JVD. RESPIRATORY: Diminished to auscultation bilaterally, CARDIOVASCULAR: Regular S1 S2, no audible murmurs GI: soft, non-tender, normoactive bowel sounds, : No Renal angle tenderness; EXTREMITIES: No edema, no clubbing, no cyanosis. MUSCULOSKELETAL: No Joint Tenderness; no muscle waisting NEURO: Awake; no lateralizing signs. SKIN: No Rash PSYCH; Normal affect Vitals/I&O's: Vital Signs Temp Pulse Resp BP Pulse Ox 98.5 F 73 18 124/86 H 100 01/02/18 14:20 01/02/18 15:00 01/02/18 14:20 01/02/18 14:20 01/02/18 14:20 Oxygen Flow Rate (L/min) 3.5 Oxygen Delivery Method Room Air Weight: 96.1 kg Body Mass Index (BMI) 30.4 Finger Stick Blood Glucose 152 Intake and Output for Last 24 Hours 12/31/17 01/01/18 01/02/18 23:59 23:59 23:59 Intake Total 360 / 360 320 / 320 Balance 360 / 360 320 / 320 Laboratory Results 01/01/18 16:16: POC Glucose 129 H 01/01/18 16:44: Troponin I < 0.015 01/01/18 21:19: POC Glucose 146 H 01/02/18 05:00: Sodium 144, Potassium 4.6, Chloride 112 H, Carbon Dioxide 25.0, Anion Gap 7, BUN 30 H, Creatinine 1.88 H, Estim Creat Clear Calc 38.29, Est GFR (MDRD) Af Amer 46 L, Est GFR (MDRD) Non-Af 38 L, BUN/Creatinine Ratio 16.0, Glucose 96, Calcium 9.2 01/02/18 05:00: WBC 6.4, RBC 3.56 L, Hgb 11.2 L, Hct 35.1 L, MCV 98.6 H, MCH 31.5, MCHC 31.9 L, RDW 13.4, RDW Differential 48.2 H, Plt Count 252, MPV 9.8, Immature Gran % (Auto) 0.300, Neut % (Auto) 60.2, Lymph % (Auto) 22.4, [place] % (Auto) 12.8 H, Eos % (Auto) 4.1, Baso % (Auto) 0.2, Absolute Neuts (auto) 3.8, Absolute Lymphs (auto) 1.42, Total Counted Not Reportable 01/02/18 05:00: PT 13.9, INR 1.1, APTT 27.7 01/02/18 06:25: POC Glucose 95 01/02/18 11:16: POC Glucose 120 H Current Medications Acetaminophen (Tylenol) 650 mg PO Q6H PRN PRN PRN Reason: PAIN Last Admin: 01/02/18 13:57 Dose: 650 mg Aspirin (Ecotrin) 81 mg PO DAILY@0800 [facility] Last Admin: 01/02/18 06:18 Dose: 81 mg Atorvastatin Calcium (Lipitor) 80 mg PO QHS [facility] Last Admin: 01/01/18 21:30 Dose: 80 mg Carvedilol (Coreg) 6.25 mg PO BID [facility] Last Admin: 01/02/18 10:16 Dose: 6.25 mg Dextrose (D50w Syringe) 0 gm IV X1 PRN; Protocol PRN Reason: Hypoglycemia Divalproex Sodium (Depakote) 1,500 mg PO BID [facility] Last Admin: 01/02/18 10:15 Dose: 1,500 mg Erythromycin () 1 applic OPHTHALMIC DAILY [facility] Last Admin: 01/02/18 10:19 Dose: 1 applicatio Ferrous Sulfate (Ferrous Sulfate) 325 mg PO DAILY@1200 [facility] Last Admin: 01/02/18 11:31 Dose: 325 mg Flecainide Acetate (Tambocor) 150 mg PO DAILY [facility] Last Admin: 01/02/18 10:17 Dose: 150 mg Gabapentin (Neurontin) 300 mg PO QHS [facility] Last Admin: 01/01/18 21:30 Dose: 300 mg Gabapentin (Neurontin) 600 mg PO DAILY [facility] Last Admin: 01/02/18 10:16 Dose: 600 mg Glucagon () 1 mg IM .X1 PRN PRN Reason: Hypoglycemia Heparin Sodium (Porcine) (Heparin Na) 5,000 unit SC Q12 [facility] Last Admin: 01/01/18 21:27 Dose: 5,000 unit Sodium Chloride () 1,000 mls @ 0 mls/hr IV .Q0M [facility] Last Admin: 01/01/18 10:54 Dose: 30 mls/hr Insulin Glargine (Lantus (Bk)) 40 units SC BID [facility] Last Admin: 01/02/18 11:28 Dose: 40 u Insulin Human Lispro (Humalog Kwikpen (Bk)) 0 unit SQ ACHS [facility]; Protocol Last Admin: 01/02/18 11:21 Dose: Not Given Levothyroxine Sodium (Synthroid) 100 mcg PO DAILY@0600 [facility] Last Admin: 01/02/18 06:19 Dose: 100 mcg Magnesium Hydroxide (Milk Of Magnesia) 30 ml PO DAILY PRN PRN Reason: Constipation Multivitamins (Multivitamin) 1 tablet PO DAILY@0800 [facility] Last Admin: 01/02/18 10:16 Dose: 1 tablet Nitroglycerin (Nitrostat) 0.4 mg SUBLINGUAL Q5M PRN PRN Reason: CHEST PAIN Oxcarbazepine (Trileptal) 300 mg PO BID [facility] Last Admin: 01/02/18 10:18 Dose: 300 mg Oxybutynin Chloride (Ditropan) 5 mg PO TIDCM [facility] Last Admin: 01/02/18 13:58 Dose: 5 mg Pantoprazole Sodium (Protonix) 20 mg PO DAILY [facility] Last Admin: 01/02/18 10:15 Dose: 20 mg Perphenazine (Perphenazine) 4 mg PO HS [facility] Last Admin: 01/01/18 21:26 Dose: 4 mg Sodium Chloride () 5 - 30 ml IV UD PRN PRN Reason: SALINE FLUSH Ticagrelor (Brilinta) 90 mg PO BID [facility] Last Admin: 01/02/18 06:18 Dose: 90 mg Tizanidine HCl (Zanaflex) 2 mg PO Q6H PRN PRN PRN Reason: BACK PAIN Medical Necessity - Tobacco Use Smoking Status: Never smoker Assessment/Plan All Active Problems (Last Reviewed 01/01/18 @ 13:50 by Av Roach MD) Scalp laceration (Resolved) Cellulitis (Acute) Change in mental status (Resolved) Patient is a 67-year-old gentleman with history of recent anterior wall ST segment elevation [place] with subsequent PTCA/LAURE to his mid LAD on 11/19/2017 who presents with chest pain 1. Chest pain patient has been admitted to a monitored bed. Did rule out [place] with serial cardiac enzymes, patient underwent subsequent evaluation with dobutamine stress echo results pending 2. Atherosclerotic heart disease of [place] coronary artery with Anterior STEMI, LAURE to mid LAD on 11/19/17 3. Dyslipidemia: Patient is on atorvastatin 4. Paroxysmal atrial fibrillation 5. Diabetes mellitus type 2 medications including diabetic nephropathy as well as polyneuropathy 6. Hypertension-blood pressure controlled, home medications continued with dose adjustment as needed 7. Chronic kidney disease stage III patient kidney function at baseline 8. Bipolar disorder 9. 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 History of traumatic brain injury patient lives with his sister at home 11. Generalized osteoarthritis 12. Morbid obesity Code Visit OBSV E&M: 73463 Observ/hosp same date L2
--- NOTE | 2018-01-02 15:32 | PN_ITS ---
Subjective: Patient seen cardiac enzymes have remained negative to date. Underwent a dobutamine stress test results still pending. Objective: GENERAL: cooperative HEENT: Atraumatic; moist oral mucosa EYES; Anicteric, Normal Conjunctiva NECK; supple, normal thyroid, no distended JVD. RESPIRATORY: Diminished to auscultation bilaterally, CARDIOVASCULAR: Regular S1 S2, no audible murmurs GI: soft, non-tender, normoactive bowel sounds, : No Renal angle tenderness; EXTREMITIES: No edema, no clubbing, no cyanosis. MUSCULOSKELETAL: No Joint Tenderness; no muscle waisting NEURO: Awake; no lateralizing signs. SKIN: No Rash PSYCH; Normal affect Vitals/I&O's: Vital Signs Temp Pulse Resp BP Pulse Ox 98.5 F 73 18 124/86 H 100 01/02/18 14:20 01/02/18 15:00 01/02/18 14:20 01/02/18 14:20 01/02/18 14:20 Oxygen Flow Rate (L/min) 3.5 Oxygen Delivery Method Room Air Weight: 96.1 kg Body Mass Index (BMI) 30.4 Finger Stick Blood Glucose 152 Intake and Output for Last 24 Hours 12/31/17 01/01/18 01/02/18 23:59 23:59 23:59 Intake Total 360 / 360 320 / 320 Balance 360 / 360 320 / 320 Laboratory Results 01/01/18 16:16: POC Glucose 129 H 01/01/18 16:44: Troponin I < 0.015 01/01/18 21:19: POC Glucose 146 H 01/02/18 05:00: Sodium 144, Potassium 4.6, Chloride 112 H, Carbon Dioxide 25.0, Anion Gap 7, BUN 30 H, Creatinine 1.88 H, Estim Creat Clear Calc 38.29, Est GFR (MDRD) Af Amer 46 L, Est GFR (MDRD) Non-Af 38 L, BUN/Creatinine Ratio 16.0, Glucose 96, Calcium 9.2 01/02/18 05:00: WBC 6.4, RBC 3.56 L, Hgb 11.2 L, Hct 35.1 L, MCV 98.6 H, MCH 31.5, MCHC 31.9 L, RDW 13.4, RDW Differential 48.2 H, Plt Count 252, MPV 9.8, Immature Gran % (Auto) 0.300, Neut % (Auto) 60.2, Lymph % (Auto) 22.4, [place] % (Auto) 12.8 H, Eos % (Auto) 4.1, Baso % (Auto) 0.2, Absolute Neuts (auto) 3.8, Absolute Lymphs (auto) 1.42, Total Counted Not Reportable 01/02/18 05:00: PT 13.9, INR 1.1, APTT 27.7 01/02/18 06:25: POC Glucose 95 01/02/18 11:16: POC Glucose 120 H Current Medications Acetaminophen (Tylenol) 650 mg PO Q6H PRN PRN PRN Reason: PAIN Last Admin: 01/02/18 13:57 Dose: 650 mg Aspirin (Ecotrin) 81 mg PO DAILY@0800 [facility] Last Admin: 01/02/18 06:18 Dose: 81 mg Atorvastatin Calcium (Lipitor) 80 mg PO QHS [facility] Last Admin: 01/01/18 21:30 Dose: 80 mg Carvedilol (Coreg) 6.25 mg PO BID [facility] Last Admin: 01/02/18 10:16 Dose: 6.25 mg Dextrose (D50w Syringe) 0 gm IV X1 PRN; Protocol PRN Reason: Hypoglycemia Divalproex Sodium (Depakote) 1,500 mg PO BID [facility] Last Admin: 01/02/18 10:15 Dose: 1,500 mg Erythromycin () 1 applic OPHTHALMIC DAILY [facility] Last Admin: 01/02/18 10:19 Dose: 1 applicatio Ferrous Sulfate (Ferrous Sulfate) 325 mg PO DAILY@1200 [facility] Last Admin: 01/02/18 11:31 Dose: 325 mg Flecainide Acetate (Tambocor) 150 mg PO DAILY [facility] Last Admin: 01/02/18 10:17 Dose: 150 mg Gabapentin (Neurontin) 300 mg PO QHS [facility] Last Admin: 01/01/18 21:30 Dose: 300 mg Gabapentin (Neurontin) 600 mg PO DAILY [facility] Last Admin: 01/02/18 10:16 Dose: 600 mg Glucagon () 1 mg IM .X1 PRN PRN Reason: Hypoglycemia Heparin Sodium (Porcine) (Heparin Na) 5,000 unit SC Q12 [facility] Last Admin: 01/01/18 21:27 Dose: 5,000 unit Sodium Chloride () 1,000 mls @ 0 mls/hr IV .Q0M [facility] Last Admin: 01/01/18 10:54 Dose: 30 mls/hr Insulin Glargine (Lantus (Bk)) 40 units SC BID [facility] Last Admin: 01/02/18 11:28 Dose: 40 u Insulin Human Lispro (Humalog Kwikpen (Bk)) 0 unit SQ ACHS [facility]; Protocol Last Admin: 01/02/18 11:21 Dose: Not Given Levothyroxine Sodium (Synthroid) 100 mcg PO DAILY@0600 [facility] Last Admin: 01/02/18 06:19 Dose: 100 mcg Magnesium Hydroxide (Milk Of Magnesia) 30 ml PO DAILY PRN PRN Reason: Constipation Multivitamins (Multivitamin) 1 tablet PO DAILY@0800 [facility] Last Admin: 01/02/18 10:16 Dose: 1 tablet Nitroglycerin (Nitrostat) 0.4 mg SUBLINGUAL Q5M PRN PRN Reason: CHEST PAIN Oxcarbazepine (Trileptal) 300 mg PO BID [facility] Last Admin: 01/02/18 10:18 Dose: 300 mg Oxybutynin Chloride (Ditropan) 5 mg PO TIDCM [facility] Last Admin: 01/02/18 13:58 Dose: 5 mg Pantoprazole Sodium (Protonix) 20 mg PO DAILY [facility] Last Admin: 01/02/18 10:15 Dose: 20 mg Perphenazine (Perphenazine) 4 mg PO HS [facility] Last Admin: 01/01/18 21:26 Dose: 4 mg Sodium Chloride () 5 - 30 ml IV UD PRN PRN Reason: SALINE FLUSH Ticagrelor (Brilinta) 90 mg PO BID [facility] Last Admin: 01/02/18 06:18 Dose: 90 mg Tizanidine HCl (Zanaflex) 2 mg PO Q6H PRN PRN PRN Reason: BACK PAIN Medical Necessity - Tobacco Use Smoking Status: Never smoker Assessment/Plan All Active Problems (Last Reviewed 01/01/18 @ 13:50 by Av Roach MD) Scalp laceration (Resolved) Cellulitis (Acute) Change in mental status (Resolved) Patient is a 67-year-old gentleman with history of recent anterior wall ST segment elevation [place] with subsequent PTCA/LAURE to his mid LAD on 11/19/2017 who presents with chest pain 1. Chest pain patient has been admitted to a monitored bed. Did rule out [place] with serial cardiac enzymes, patient underwent subsequent evaluation with dobutamine stress echo results pending 2. Atherosclerotic heart disease of [place] coronary artery with Anterior STEMI, LAURE to mid LAD on 11/19/17 3. Dyslipidemia: Patient is on atorvastatin 4. Paroxysmal atrial fibrillation 5. Diabetes mellitus type 2 medications including diabetic nephropathy as well as polyneuropathy 6. Hypertension-blood pressure controlled, home medications continued with dose adjustment as needed 7. Chronic kidney disease stage III patient kidney function at baseline 8. Bipolar disorder 9. 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 History of traumatic brain injury patient lives with his sister at home 11. Generalized osteoarthritis 12. Morbid obesity Code Visit OBSV E&M: 36227 Observ/hosp same date L2
[2018-01-02] MEDS: Insulin Lispro 100 UNIT/ML INSULN.PEN SQ (16:13)
--- NOTE | 2018-01-02 16:29 | DCINST_ITS ---
You will use the following diet at home:: Calorie/Carbohydrate Controlled (specify 1200, 1400, etc) - 1800, Cardiac Your food should be the consistency of: Regular Allergies/Adverse Reactions: Allergies atorvastatin [From Lipitor] Allergy (Verified 01/01/18 10:02) Unknown Penicillins Allergy (Verified 01/01/18 10:02) Unknown lisinopril Adverse Reaction (Unknown, Verified 01/01/18 10:02) unknown codeine Adverse Reaction (Verified 01/01/18 10:02) Upset Stomach doxycycline Adverse Reaction (Verified 01/01/18 10:02) Other nickel Adverse Reaction (Verified 01/01/18 10:02) Rash LYCOPEEN Adverse Reaction (Uncoded 01/01/18 10:02) Other Medications to take at Discharge Divalproex Sodium [Depakote] 1,500 mg PO BID 01/11/13 Glimepiride 2 mg PO DAILY 01/21/16 Esomeprazole Magnesium [Nexium 24Hr] 20 mg PO DAILY 04/09/16 Ferrous Sulfate [Iron] 325 mg PO DAILY 04/09/16 Flecainide [Tambocor] 150 mg PO DAILY 04/09/16 Gabapentin [Neurontin] 600 mg PO DAILY 04/09/16 Levothyroxine [Synthroid] 100 mcg PO DAILY 09/07/16 Multivitamin [Daily Multiple Vitamin] 1 tab PO DAILY 09/07/16 aspirin 81 mg tablet,delayed release 81 mg PO QDAY 02/27/17 diclofenac 1 % topical gel 2 g TOPICAL 4X/DAY g 02/27/17 insulin detemir (U-100) 100 unit/mL (3 mL) subcutaneous pen 40 unit SC BID ml 02/27/17 nitroglycerin 0.4 mg sublingual tablet 0.4 mg SUBLINGUAL Q5M PRN 02/27/17 oxcarbazepine 300 mg tablet 300 mg PO BID 02/27/17 tizanidine 2 mg capsule 2 mg PO Q6H PRN cap 02/27/17 Atorvastatin Calcium [Lipitor] 80 mg PO QHS #30 tab 11/21/17 Carvedilol [Coreg (Beta Tulio)] 6.25 mg PO BID #60 tab 11/21/17 Ticagrelor [Brilinta] 90 mg PO BID #60 tab 11/21/17 Erythromycin Ophthalmic 1 applic OPHTHALMIC DAILY 01/01/18 Gabapentin [Neurontin] 300 mg PO QHS 01/01/18 Liraglutide [Victoza] 1.2 mg SQ DAILY 01/01/18 Oxybutynin [Ditropan] 5 mg PO TID 01/01/18 Perphenazine 4 mg PO QHS 01/01/18 Primary Care Physician: Issa Trinidad MD [Primary Care Provider] - Test Results: Test results from this visit will be discussed in further detail at your follow- up appointment, if applicable. Proposed Discharge Date: 01/02/18
--- NOTE | 2018-01-02 16:30 | PCM.DC.SUM ---
Discharge Date and Diagnosis Date of Admission: 01/01/18 Date of Discharge: 01/02/18 - Primary Discharge Diagnosis Chest pain - Secondary Discharge Diagnosis Chronic Problems (Last Reviewed 01/01/18 @ 13:50 by Av Roach MD) Atherosclerotic heart disease of [place] coronary artery without angina pectoris (Chronic) Anterior STEMI, LAURE to mid LAD: 2.5 X [address] Nguyen @ [facility] Stented coronary artery (Chronic 11/19/17) LAURE to mid LAD: 2.5 X [address] Nguyen @ [facility] STEMI (ST elevation myocardial infarction) (Chronic 11/19/17) Anterior STEMI Diabetes mellitus, type II (Chronic) BG readings checked at various times of day. Range 58-200+ He does have a pattern of waking with low Bg. Will reduce his pm lantus today and have him call back office with any further low BG. Reports taking insulin as directed as well as his oral agents. Is due for labs and I have ask him to do these today or tomorrow. BP recheck 134/76 Bipolar disorder (Chronic) Atrial fibrillation (Chronic) Hyperlipidemia (Chronic) Neuropathy (Chronic) Hypertension (Chronic) Gout (Chronic) Traumatic brain injury (Chronic) Arthritis (Chronic) Hospital Course and Treatment Imaging Results: Clinical Impression(s) from Imaging Studies Chest X-Ray 01/01/18 10:35 IMPRESSION: Mild hypoventilatory change at the left lung base. No evidence of acute failure. Suspect probable underlying COPD. Electronically Signed: Suzanne Lo MD at 11:02 EDT , Service support , Operations: None Summary of Care Provided: Patient is a 67-year-old gentleman with history of recent anterior wall ST segment elevation [place] with subsequent PTCA/LAURE to his mid LAD on 11/19/2017 who presents with chest pain 1. Chest pain patient has been admitted to a monitored bed. Did rule out [place] with serial cardiac enzymes, patient underwent subsequent evaluation with dobutamine stress echo was negative for stress-induced ischemia 2. Atherosclerotic heart disease of [place] coronary artery with Anterior STEMI, LAURE to mid LAD on 11/19/17 3. Dyslipidemia: Patient is on atorvastatin 4. Paroxysmal atrial fibrillation 5. Diabetes mellitus type 2 medications including diabetic nephropathy as well as polyneuropathy 6. Hypertension-blood pressure controlled, home medications continued with dose adjustment as needed 7. Chronic kidney disease stage III patient kidney function at baseline 8. Bipolar disorder 9. 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 History of traumatic brain injury patient lives with his sister at home 11. Generalized osteoarthritis 12. Morbid obesity - Physical Exam General: Alert HEENT: Atraumatic Neck: No JVD Lungs: Clear to auscultation Cardiovascular: Regular rate Psych/Mental Status: Appropriate Vital Signs Temp Pulse Resp BP Pulse Ox 98.5 F 73 18 124/86 H 100 01/02/18 14:20 01/02/18 15:00 01/02/18 14:20 01/02/18 14:20 01/02/18 14:20 Oxygen Flow Rate (L/min) 3.5 Oxygen Delivery Method Room Air Weight: 96.1 kg Body Mass Index (BMI) 30.4 Finger Stick Blood Glucose 152 Intake and Output for Last 24 Hours 12/31/17 01/01/18 01/02/18 23:59 23:59 23:59 Intake Total 360 / 360 320 / 320 Balance 360 / 360 320 / 320 Laboratory Tests Past 24 Hrs 01/01/18 01/02/18 01/02/18 16:44 05:00 05:00 WBC 6.4 RBC 3.56 L Hgb 11.2 L Hct 35.1 L MCV 98.6 H MCH 31.5 MCHC 31.9 L RDW 13.4 RDW Differential 48.2 H Plt Count 252 MPV 9.8 Immature Gran % (Auto) 0.300 Neut % (Auto) 60.2 Lymph % (Auto) 22.4 [place] % (Auto) 12.8 H Eos % (Auto) 4.1 Baso % (Auto) 0.2 Absolute Neuts (auto) 3.8 Absolute Lymphs (auto) 1.42 Total Counted Not Reportable PT INR APTT Sodium 144 Potassium 4.6 Chloride 112 H Carbon Dioxide 25.0 Anion Gap 7 BUN 30 H Creatinine 1.88 H Estim Creat Clear Calc 38.29 Est GFR (MDRD) Af Amer 46 L Est GFR (MDRD) Non-Af 38 L BUN/Creatinine Ratio 16.0 Glucose 96 Calcium 9.2 Troponin I < 0.015 01/02/18 05:00 WBC RBC Hgb Hct MCV MCH MCHC RDW RDW Differential Plt Count MPV Immature Gran % (Auto) Neut % (Auto) Lymph % (Auto) [place] % (Auto) Eos % (Auto) Baso % (Auto) Absolute Neuts (auto) Absolute Lymphs (auto) Total Counted PT 13.9 INR 1.1 APTT 27.7 Sodium Potassium Chloride Carbon Dioxide Anion Gap BUN Creatinine Estim Creat Clear Calc Est GFR (MDRD) Af Amer Est GFR (MDRD) Non-Af BUN/Creatinine Ratio Glucose Calcium Troponin I POC Glucose 01/02/18 01/02/18 01/01/18 11:16 06:25 21:19 POC Glucose 120 H 95 146 H 01/01/18 16:16 POC Glucose 129 H Discharge Diet: Low fat/ Low Cholesterol, 1800 Calorie Control Diet Home Medications: Medications to take at Discharge Divalproex Sodium [Depakote] 1,500 mg PO BID 01/11/13 Glimepiride 2 mg PO DAILY 01/21/16 Esomeprazole Magnesium [Nexium 24Hr] 20 mg PO DAILY 04/09/16 Ferrous Sulfate [Iron] 325 mg PO DAILY 04/09/16 Flecainide [Tambocor] 150 mg PO DAILY 04/09/16 Gabapentin [Neurontin] 600 mg PO DAILY 04/09/16 Levothyroxine [Synthroid] 100 mcg PO DAILY 09/07/16 Multivitamin [Daily Multiple Vitamin] 1 tab PO DAILY 09/07/16 aspirin 81 mg tablet,delayed release 81 mg PO QDAY 02/27/17 diclofenac 1 % topical gel 2 g TOPICAL 4X/DAY g 02/27/17 insulin detemir (U-100) 100 unit/mL (3 mL) subcutaneous pen 40 unit SC BID ml 02/27/17 nitroglycerin 0.4 mg sublingual tablet 0.4 mg SUBLINGUAL Q5M PRN 02/27/17 oxcarbazepine 300 mg tablet 300 mg PO BID 02/27/17 tizanidine 2 mg capsule 2 mg PO Q6H PRN cap 02/27/17 Atorvastatin Calcium [Lipitor] 80 mg PO QHS #30 tab 11/21/17 Carvedilol [Coreg (Beta Tulio)] 6.25 mg PO BID #60 tab 11/21/17 Ticagrelor [Brilinta] 90 mg PO BID #60 tab 11/21/17 Erythromycin Ophthalmic 1 applic OPHTHALMIC DAILY 01/01/18 Gabapentin [Neurontin] 300 mg PO QHS 01/01/18 Liraglutide [Victoza] 1.2 mg SQ DAILY 01/01/18 Oxybutynin [Ditropan] 5 mg PO TID 01/01/18 Perphenazine 4 mg PO QHS 01/01/18 Primary Care Physician: Issa Trinidad MD [Primary Care Provider] - Disposition: Home Minutes spent on discharge:: 35 Patient Condition:: Stable Medical Necessity - Tobacco Use Smoking Status: Never smoker Meaningful Use Info Meaningful Use Diagnoses (Choose all that apply): None applicable Code Visit OBSV E&M: 45344 Observation care discharge
--- NOTE | 2018-01-02 16:33 | DS.PCM_ITS ---
Discharge Date and Diagnosis Date of Admission: 01/01/18 Date of Discharge: 01/02/18 - Primary Discharge Diagnosis Chest pain - Secondary Discharge Diagnosis Chronic Problems (Last Reviewed 01/01/18 @ 13:50 by Av Roach MD) Atherosclerotic heart disease of [place] coronary artery without angina pectoris (Chronic) Anterior STEMI, LAURE to mid LAD: 2.5 X [address] Nguyen @ [facility] Stented coronary artery (Chronic 11/19/17) LAURE to mid LAD: 2.5 X [address] Nguyen @ [facility] STEMI (ST elevation myocardial infarction) (Chronic 11/19/17) Anterior STEMI Diabetes mellitus, type II (Chronic) BG readings checked at various times of day. Range 58-200+ He does have a pattern of waking with low Bg. Will reduce his pm lantus today and have him call back office with any further low BG. Reports taking insulin as directed as well as his oral agents. Is due for labs and I have ask him to do these today or tomorrow. BP recheck 134/76 Bipolar disorder (Chronic) Atrial fibrillation (Chronic) Hyperlipidemia (Chronic) Neuropathy (Chronic) Hypertension (Chronic) Gout (Chronic) Traumatic brain injury (Chronic) Arthritis (Chronic) Hospital Course and Treatment Imaging Results: Clinical Impression(s) from Imaging Studies Chest X-Ray 01/01/18 10:35 IMPRESSION: Mild hypoventilatory change at the left lung base. No evidence of acute failure. Suspect probable underlying COPD. Electronically Signed: Suzanne Lo MD at 11:02 EDT , Service support , Operations: None Summary of Care Provided: Patient is a 67-year-old gentleman with history of recent anterior wall ST segment elevation [place] with subsequent PTCA/LAURE to his mid LAD on 11/19/2017 who presents with chest pain 1. Chest pain patient has been admitted to a monitored bed. Did rule out [place] with serial cardiac enzymes, patient underwent subsequent evaluation with dobutamine stress echo was negative for stress-induced ischemia 2. Atherosclerotic heart disease of [place] coronary artery with Anterior STEMI, LAURE to mid LAD on 11/19/17 3. Dyslipidemia: Patient is on atorvastatin 4. Paroxysmal atrial fibrillation 5. Diabetes mellitus type 2 medications including diabetic nephropathy as well as polyneuropathy 6. Hypertension-blood pressure controlled, home medications continued with dose adjustment as needed 7. Chronic kidney disease stage III patient kidney function at baseline 8. Bipolar disorder 9. 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 History of traumatic brain injury patient lives with his sister at home 11. Generalized osteoarthritis 12. Morbid obesity - Physical Exam General: Alert HEENT: Atraumatic Neck: No JVD Lungs: Clear to auscultation Cardiovascular: Regular rate Psych/Mental Status: Appropriate Vital Signs Temp Pulse Resp BP Pulse Ox 98.5 F 73 18 124/86 H 100 01/02/18 14:20 01/02/18 15:00 01/02/18 14:20 01/02/18 14:20 01/02/18 14:20 Oxygen Flow Rate (L/min) 3.5 Oxygen Delivery Method Room Air Weight: 96.1 kg Body Mass Index (BMI) 30.4 Finger Stick Blood Glucose 152 Intake and Output for Last 24 Hours 12/31/17 01/01/18 01/02/18 23:59 23:59 23:59 Intake Total 360 / 360 320 / 320 Balance 360 / 360 320 / 320 Laboratory Tests Past 24 Hrs 01/01/18 01/02/18 01/02/18 16:44 05:00 05:00 WBC 6.4 RBC 3.56 L Hgb 11.2 L Hct 35.1 L MCV 98.6 H MCH 31.5 MCHC 31.9 L RDW 13.4 RDW Differential 48.2 H Plt Count 252 MPV 9.8 Immature Gran % (Auto) 0.300 Neut % (Auto) 60.2 Lymph % (Auto) 22.4 [place] % (Auto) 12.8 H Eos % (Auto) 4.1 Baso % (Auto) 0.2 Absolute Neuts (auto) 3.8 Absolute Lymphs (auto) 1.42 Total Counted Not Reportable PT INR APTT Sodium 144 Potassium 4.6 Chloride 112 H Carbon Dioxide 25.0 Anion Gap 7 BUN 30 H Creatinine 1.88 H Estim Creat Clear Calc 38.29 Est GFR (MDRD) Af Amer 46 L Est GFR (MDRD) Non-Af 38 L BUN/Creatinine Ratio 16.0 Glucose 96 Calcium 9.2 Troponin I < 0.015 01/02/18 05:00 WBC RBC Hgb Hct MCV MCH MCHC RDW RDW Differential Plt Count MPV Immature Gran % (Auto) Neut % (Auto) Lymph % (Auto) [place] % (Auto) Eos % (Auto) Baso % (Auto) Absolute Neuts (auto) Absolute Lymphs (auto) Total Counted PT 13.9 INR 1.1 APTT 27.7 Sodium Potassium Chloride Carbon Dioxide Anion Gap BUN Creatinine Estim Creat Clear Calc Est GFR (MDRD) Af Amer Est GFR (MDRD) Non-Af BUN/Creatinine Ratio Glucose Calcium Troponin I POC Glucose 01/02/18 01/02/18 01/01/18 11:16 06:25 21:19 POC Glucose 120 H 95 146 H 01/01/18 16:16 POC Glucose 129 H Discharge Diet: Low fat/ Low Cholesterol, 1800 Calorie Control Diet Home Medications: Medications to take at Discharge Divalproex Sodium [Depakote] 1,500 mg PO BID 01/11/13 Glimepiride 2 mg PO DAILY 01/21/16 Esomeprazole Magnesium [Nexium 24Hr] 20 mg PO DAILY 04/09/16 Ferrous Sulfate [Iron] 325 mg PO DAILY 04/09/16 Flecainide [Tambocor] 150 mg PO DAILY 04/09/16 Gabapentin [Neurontin] 600 mg PO DAILY 04/09/16 Levothyroxine [Synthroid] 100 mcg PO DAILY 09/07/16 Multivitamin [Daily Multiple Vitamin] 1 tab PO DAILY 09/07/16 aspirin 81 mg tablet,delayed release 81 mg PO QDAY 02/27/17 diclofenac 1 % topical gel 2 g TOPICAL 4X/DAY g 02/27/17 insulin detemir (U-100) 100 unit/mL (3 mL) subcutaneous pen 40 unit SC BID ml 02/27/17 nitroglycerin 0.4 mg sublingual tablet 0.4 mg SUBLINGUAL Q5M PRN 02/27/17 oxcarbazepine 300 mg tablet 300 mg PO BID 02/27/17 tizanidine 2 mg capsule 2 mg PO Q6H PRN cap 02/27/17 Atorvastatin Calcium [Lipitor] 80 mg PO QHS #30 tab 11/21/17 Carvedilol [Coreg (Beta Tulio)] 6.25 mg PO BID #60 tab 11/21/17 Ticagrelor [Brilinta] 90 mg PO BID #60 tab 11/21/17 Erythromycin Ophthalmic 1 applic OPHTHALMIC DAILY 01/01/18 Gabapentin [Neurontin] 300 mg PO QHS 01/01/18 Liraglutide [Victoza] 1.2 mg SQ DAILY 01/01/18 Oxybutynin [Ditropan] 5 mg PO TID 01/01/18 Perphenazine 4 mg PO QHS 01/01/18 Primary Care Physician: Issa Trinidad MD [Primary Care Provider] - Disposition: Home Minutes spent on discharge:: 35 Patient Condition:: Stable Medical Necessity - Tobacco Use Smoking Status: Never smoker Meaningful Use Info Meaningful Use Diagnoses (Choose all that apply): None applicable Code Visit OBSV E&M: 21115 Observation care discharge
[2018-01-02 16:55] LABS: Bedside Glucose 219 mg/dL (70-110)
== END 2018-01-02 17:59 | disposition home health service (06) ==
LOC: ED 12:40 → PCU 13:13
PROVIDERS: Admitting Provider Internal Medicine; Emergency Provider Emergency Medicine; Family Provider Family Medicine; PCP Family Medicine; Visit Provider Internal Medicine
DX: R07.89 Other chest pain (principal); I25.2 Old myocardial infarction; R47.9 Unspecified speech disturbances; I25.10 Atherosclerotic heart disease of native coronary artery without angina pectoris; F31.9 Bipolar disorder, unspecified; I48.0 Paroxysmal atrial fibrillation; E78.5 Hyperlipidemia, unspecified; M19.90 Unspecified osteoarthritis, unspecified site; Z87.820 Personal history of traumatic brain injury; F41.9 Anxiety disorder, unspecified; Z79.899 Other long term (current) drug therapy; Z79.4 Long term (current) use of insulin; Z79.82 Long term (current) use of aspirin; E11.42 Type 2 diabetes mellitus with diabetic polyneuropathy; E11.22 Type 2 diabetes mellitus with diabetic chronic kidney disease; I12.9 Hypertensive chronic kidney disease with stage 1 through stage 4 chronic kidney disease, or unspecified chronic kidney disease; N18.3 Chronic kidney disease, stage 3 (moderate); E66.01 Morbid (severe) obesity due to excess calories; Z68.30 Body mass index [BMI] 30.0-30.9, adult; Z71.3 Dietary counseling and surveillance
CPT/HCPCS: 36415; 71045; 80048; 82962; 83880; 84484; 85025; 85379; 85610; 85730; 93005; 93017; 93350; 96372; 99218; 99284; J7030; Q9957; A4216; C8928; G0378; J2405

== ENCOUNTER → 2018-03-09 13:47 | Outpatient (CLI) | payer MEDICARE, SELFPAY ==
[2017-11-19 09:37] VITALS: BMI 31.8
[2018-01-01 13:47] VITALS: BMI 30.4
--- NOTE | 2018-03-09 13:48 | ECHOD_ITS ---
Reason For Study: CAD/ASHD Procedure This was a 2D Doppler, Color Flow transthoracic echocardiogram. Exam performed in department. Left Ventricle Moderate concentric left ventricular hypertrophy. The estimated ejection fraction is 65 %. Stage 1 diastolic dysfunction. No regional wall motion abnormalities noted. Right Ventricle Normal size and thickness. Normal systolic function. Atria Normal left atrium. Normal right atrium. Normal atrial septum. Mitral Valve The mitral valve is structurally normal. No prolapse or stenosis seen. Tricuspid Valve Normal tricuspid valve. Trivial tricuspid valve insufficiency. Right ventricular systolic pressure estimated to be 31 mmHg. Aortic Valve Trisinus/trileaflet aortic valve. Pulmonic Valve Normal pulmonic valve. Trivial pulmonic valve insufficiency. Great Vessels Normal aortic root. Normal arch. Normal inferior vena cava. Inferior vena cava collapse with sniff. Pericardium/Pleural No pericardial effusion. MMode/2D Measurements & Calculations LVIDd: 4.4 cm IVSd: 1.9 cm Ao root diam: 3.5 cm LVIDs: 2.3 cm LVPWd: 1.2 cm LA dimension: 3.6 cm FS: 47.1 % LAV(MOD-sp4): 43.8 ml LA A4 area: 17.2 cm2 RA A4 area: 13.7 cm2 Time Measurements MV dec time: 0.28 sec Doppler Measurements & Calculations MV E max chi: 51.7 cm/sec Lat Peak E' Chi: 11.2 cm/sec Med Peak E' Chi: 5.6 cm/sec MV A max chi: 91.0 cm/sec E/E' lat: 4.6 E/E' med: 9.2 MV E/A: 0.57 MV V2 max: 84.7 cm/sec MV P1/2t max chi: 64.7 cm/sec Ao V2 max: 119.1 cm/sec MV max P.9 mmHg MV P1/2t: 74.5 msec Ao max P.7 mmHg MV V2 mean: 48.4 cm/sec MV dec slope: 254.5 cm/sec2 Ao V2 mean: 83.8 cm/sec MV mean P.1 mmHg MVA(P1/2t): 3.0 cm2 Ao mean P.1 mmHg MV V2 VTI: 19.3 cm Ao V2 VTI: 23.9 cm LV V1 max: 100.8 cm/sec PA V2 max: 87.6 cm/sec TR max chi: 256.7 cm/sec LV V1 max P.1 mmHg TR max P.4 mmHg LV V1 mean P.0 mmHg LV V1 mean: 65.4 cm/sec LV V1 VTI: 19.7 cm Interpretation Summary Moderate concentric left ventricular hypertrophy. The estimated ejection fraction is 65 %. Stage 1 diastolic dysfunction. Trivial tricuspid valve insufficiency. Right ventricular systolic pressure estimated to be 31 mmHg. Compared to echo report dated 11/19/17, LV function has normalized. RVSP has remained the same. Ordering Physician: Chito Nguyen Referring Physician: MD Amos Issa Performed By: Steven Horton RCS
--- OUTSIDE RECORDS SUMMARY | 2018-06-11 05:07 | XMS RPT_ITS ---
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 ELECTROCARDIOGRAM Observed: 01/05/2018 Status: F Source: [place] 3:20 PM [facility] REPOSIT[facility] Cardiovascular Services [address] [place] [address] 12 Lead EKG 01/01/18 1003 MR#: [id number] Acct: [id number] Name: RENATO NOONAN . Rep #: [id number] : 1950 67 From: Chago Gonzáles MD Attending Dr: Av Roach MD Status: DIS ETHAN Ordering Dr: Wandy Walton MD Date: 01/01/18 Location: [facility] Sex: M C Admitted: 01/01/18 Test Reason : CP Blood Pressure : / mmHG Vent. Rate : 071 BPM Atrial Rate : 071 BPM P-R Int : 224 ms QRS Dur : 116 ms QT Int : 402 ms P-R-T Axes : 056 069 -80 degrees QTc Int : 436 ms Sinus rhythm with 1st degree A-V block with Premature atrial complexes ST AND T wave abnormality, consider inferior ischemia Abnormal ECG Confirmed by CHAGO GONZÁLES MD ([id number]), staff editor TERESA BOWEN ([id number]) on 01/05/2018 3:20:18 PM Referred By: ASHLEY Confirmed By:CHAGO GONZÁLES MD 01/05/18 1520 Date Chago Gonzáles MD CC: MD Orestes Walton; Av Roach MD; Johnie Trinidad MD Signed DISCHARGE SUMMARY Observed: 01/02/2018 Status: F Source: REGINO 4:33 PM [facility] REPOSITORY [facility] Medical Records Department [address] [place] [address] Discharge Summary 01/02/18 1630 MR#: [id number] Acct: [id number] Name: SHAISTARENATO Jama Jr. Rep #: [id number] : 1950 67 From: Av Roach MD PCP: Elderbrock MD,Johnie Status: ADM ETHAN Y Location: [place] [address] Discharge Date and Diagnosis Date of Admission: 01/01/18 Date of Discharge: 01/02/18 - Primary Discharge Diagnosis Chest pain - Secondary Discharge Diagnosis Chronic Problems (Last Reviewed 01/01/18 @ 13:50 by Av Roach MD) Atherosclerotic heart disease of [place] coronary artery without angina pectoris (Chronic) Anterior STEMI, LAURE to mid LAD: 2.5 X [address] Mckeon @ [facility] Stented coronary artery (Chronic 11/19/17) LAURE to mid LAD: 2.5 X [address] Mckeon @ [facility] STEMI (ST elevation myocardial infarction) (Chronic 11/19/17) Anterior STEMI Diabetes mellitus, type II (Chronic) BG readings checked at various times of day. Range 58-200+ He does have a pattern of waking with low Bg. Will reduce his pm lantus today and have him call back office with any further low BG. Reports taking insulin as directed as well as his oral agents. Is due for labs and I have ask him to do these today or tomorrow. BP recheck 134/76 Bipolar disorder (Chronic) Atrial fibrillation (Chronic) Hyperlipidemia (Chronic) Neuropathy (Chronic) Hypertension (Chronic) Gout (Chronic) Traumatic brain injury (Chronic) Arthritis (Chronic) Hospital Course and Treatment Imaging Results: Clinical Impression(s) from Imaging Studies Chest X-Ray 01/01/18 10:35 IMPRESSION: Mild hypoventilatory change at the left lung base. No evidence of acute failure. Suspect probable underlying COPD. Electronically Signed: Suzanne Lo MD at 11:02 EDT , Service support , Operations: None Summary of Care Provided: Patient is a 67-year-old gentleman with history of recent anterior wall ST segment elevation [place] with subsequent PTCA/LAURE to his mid LAD on 11/19/2017 who presents with chest pain 1. Chest pain patient has been admitted to a monitored bed. Did rule out [place] with serial cardiac enzymes, patient underwent subsequent evaluation with dobutamine stress echo was negative for stress-induced ischemia 2. Atherosclerotic heart disease of [place] coronary artery with Anterior STEMI, LAURE to mid LAD on 11/19/17 3. Dyslipidemia: Patient is on atorvastatin 4. Paroxysmal atrial fibrillation 5. Diabetes mellitus type 2 medications including diabetic nephropathy as well as polyneuropathy 6. Hypertension-blood pressure controlled, home medications continued with dose adjustment as needed 7. Chronic kidney disease stage III patient kidney function at baseline 8. Bipolar disorder 9. 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 History of traumatic brain injury patient lives with his sister at home 11. Generalized osteoarthritis 12. Morbid obesity - Physical Exam General: Alert HEENT: Atraumatic Neck: No JVD Lungs: Clear to auscultation Cardiovascular: Regular rate Psych/Mental Status: Appropriate Vital Signs Temp Pulse Resp BP Pulse Ox 98.5 F 73 18 124/86 H 100 01/02/18 14:20 01/02/18 15:00 01/02/18 14:20 01/02/18 14:20 01/02/18 14:20 Oxygen Flow Rate (L/min) 3.5 Oxygen Delivery Method Room Air Weight: 96.1 kg Body Mass Index (BMI) 30.4 Finger Stick Blood Glucose 152 Intake and Output for Last 24 Hours Intake Total 360 / 360 320 / 320 Balance 360 / 360 320 / 320 Laboratory Tests Past 24 Hrs WBC RBC Hgb Hct MCV MCH MCHC RDW RDW Differential Plt Count MPV Immature Gran % (Auto) Neut % (Auto) POC Glucose POC Glucose 120 H 95 146 H POC Glucose 129 H Discharge Diet: Low fat/ Low Cholesterol, 1800 Calorie Control Diet Home Medications: Medications to take at Discharge Divalproex Sodium [Depakote] 1,500 mg PO BID 01/11/13 Glimepiride 2 mg PO DAILY 01/21/16 Esomeprazole Magnesium [Nexium 24Hr] 20 mg PO DAILY 04/09/16 Ferrous Sulfate [Iron] 325 mg PO DAILY 04/09/16 Flecainide [Tambocor] 150 mg PO DAILY 04/09/16 Gabapentin [Neurontin] 600 mg PO DAILY 04/09/16 Levothyroxine [Synthroid] 100 mcg PO DAILY 09/07/16 Multivitamin [Daily Multiple Vitamin] 1 tab PO DAILY 09/07/16 aspirin 81 mg tablet,delayed release 81 mg PO QDAY 02/27/17 diclofenac 1 % topical gel 2 g TOPICAL 4X/DAY g 02/27/17 insulin detemir (U-100) 100 unit/mL (3 mL) subcutaneous pen 40 unit SC BID ml 02/27/17 nitroglycerin 0.4 mg sublingual tablet 0.4 mg SUBLINGUAL Q5M PRN 02/27/17 oxcarbazepine 300 mg tablet 300 mg PO BID 02/27/17 tizanidine 2 mg capsule 2 mg PO Q6H PRN cap 02/27/17 Atorvastatin Calcium [Lipitor] 80 mg PO QHS #30 tab 11/21/17 Carvedilol [Coreg (Beta Summer)] 6.25 mg PO BID #60 tab 11/21/17 Ticagrelor [Brilinta] 90 mg PO BID #60 tab 11/21/17 Erythromycin Ophthalmic 1 applic OPHTHALMIC DAILY 01/01/18 Gabapentin [Neurontin] 300 mg PO QHS 01/01/18 Liraglutide [Victoza] 1.2 mg SQ DAILY 01/01/18 Oxybutynin [Ditropan] 5 mg PO TID 01/01/18 Perphenazine 4 mg PO QHS 01/01/18 Primary Care Physician: Johnie Trinidad MD [Primary Care Provider] - Disposition: Home Minutes spent on discharge:: 35 Patient Condition:: Stable Medical Necessity - Tobacco Use Smoking Status: Never smoker Meaningful Use Info Meaningful Use Diagnoses (Choose all that apply): None applicable Code Visit OBSV E AND M: 55953 Observation care discharge 01/02/18 8763 <Electronically signed by Av Roach MD> Date Av Roach MD Cosigner Signature (if applicable): Date CC: Av Roach MD; Johnie Trinidad MD Signed DISCHARGE INSTRUCTION Observed: 01/02/2018 Status: F Source: REGINO 4:29 PM [facility] REPOSIT[facility] Medical Records Department [address] [place] [address] Instructions for Home/Discharge Instructions 01/02/18 1626 MR#: [id number] Acct: [id number] Name: RENATO NOONAN Jr. Rep #: [id number] : 1950 67 From: Av Roach MD PCP: Amos JASON,Johnie Status: ADM ETHAN You will use the following diet at home:: Calorie/Carbohydrate Controlled (specify 1200, 1400, etc) - 1800, Cardiac Your food should be the consistency of: Regular Allergies/Adverse Reactions: Allergies atorvastatin [From Lipitor] Allergy (Verified 01/01/18 10:02) Unknown Penicillins Allergy (Verified 01/01/18 10:02) Unknown lisinopril Adverse Reaction (Unknown, Verified 01/01/18 10:02) unknown codeine Adverse Reaction (Verified 01/01/18 10:02) Upset Stomach doxycycline Adverse Reaction (Verified 01/01/18 10:02) Other nickel Adverse Reaction (Verified 01/01/18 10:02) Rash LYCOPEEN Adverse Reaction (Uncoded 01/01/18 10:02) Other Medications to take at Discharge Divalproex Sodium [Depakote] 1,500 mg PO BID 01/11/13 Glimepiride 2 mg PO DAILY 01/21/16 Esomeprazole Magnesium [Nexium 24Hr] 20 mg PO DAILY 04/09/16 Ferrous Sulfate [Iron] 325 mg PO DAILY 04/09/16 Flecainide [Tambocor] 150 mg PO DAILY 04/09/16 Gabapentin [Neurontin] 600 mg PO DAILY 04/09/16 Levothyroxine [Synthroid] 100 mcg PO DAILY 09/07/16 Multivitamin [Daily Multiple Vitamin] 1 tab PO DAILY 09/07/16 aspirin 81 mg tablet,delayed release 81 mg PO QDAY 02/27/17 diclofenac 1 % topical gel 2 g TOPICAL 4X/DAY g 02/27/17 insulin detemir (U-100) 100 unit/mL (3 mL) subcutaneous pen 40 unit SC BID ml 02/27/17 nitroglycerin 0.4 mg sublingual tablet 0.4 mg SUBLINGUAL Q5M PRN 02/27/17 oxcarbazepine 300 mg tablet 300 mg PO BID 02/27/17 tizanidine 2 mg capsule 2 mg PO Q6H PRN cap 02/27/17 Atorvastatin Calcium [Lipitor] 80 mg PO QHS #30 tab 11/21/17 Carvedilol [Coreg (Beta Summer)] 6.25 mg PO BID #60 tab 11/21/17 Ticagrelor [Brilinta] 90 mg PO BID #60 tab 11/21/17 Erythromycin Ophthalmic 1 applic OPHTHALMIC DAILY 01/01/18 Gabapentin [Neurontin] 300 mg PO QHS 01/01/18 Liraglutide [Victoza] 1.2 mg SQ DAILY 01/01/18 Oxybutynin [Ditropan] 5 mg PO TID 01/01/18 Perphenazine 4 mg PO QHS 01/01/18 Primary Care Physician: Johnie Trinidad MD [Primary Care Provider] - Test Results: Test results from this visit will be discussed in further detail at your follow-up appointment, if applicable. Proposed Discharge Date: 01/02/18 01/02/181628 <Electronically signed by Av Roach MD> Date Av Roach MD CC: Johnie Trinidad MD BEDSIDE GLUCOSE Collected: 01/02/2018 Status: F Source: [facility] 4:11 PM [facility] REPOSITORY TYPE CODE TESTS RESULT OUT OF REFERENCE UNITS RANGE LAB L501.080 70-110 mg/dL High BEDSIDE GLU 219 Result Comment: MANAGEMENT OF PATIENT CARE PER NURSING PROTOCOL Performed By: #### L501.080 #### [facility] Point of Care [address] [place] [address] STRESS TEST ECHO W/ Observed: 01/02/2018 Status: F Source: [facility] CONTRAST 3:32 PM [facility] REPOSITORY [facility] Cardiovascular Services [address] [place] [address] Stress Test Echo W/Contrast MR#: [id number] Acct: [id number] Name: SHAISTARENATO Evita Boswell Rep #: [id number] : 1950 67 From: Chito Mckeon MD Primary Care: Johnie Trinidad MD Status: ADM ETHAN Ordering Dr: Av Roach MD Sex: M C Reason For Study: CHEST PAIN Stress Results Protocol: Dobutamine Maximum Predicted HR: 151 bpm Target HR: 128 bpm% Maximum Predicted HR: 89 % DurationHeart Rate Stage (mm:ss) (bpm) BPDose Comment BASELINE 71 169/92 3 CC DEFINITY STAGE 1 3:23 62 160/90 10.001CC DEFINITY STAGE 2 3:00 61 215/31838.00 STAGE 3 3:00 12 0 / 30.0 00.25 MG ATROPINE STAGE 4 1:17 13 4 176/85910.001 CC DEFINITY Stage 6 99 173/79 1 CC DEFINITY Stress Duration: 10:40 mm:ss Maximum Stress HR: 134 bpm Baseline Echocardiogram Findings The estimated ejection fraction is 65 %. Stress Echo Wall motion Data Resting WMIntermediate WMStress WM Resting Wall Motion Wall Motion Stress No regional wall motion No regional wall motion abnormalities noted. abnormalities noted. EKG Data The baseline ECG displays normal sinus rhythm. The patient was titrated from 10 mcg to a maximum of 40 mcg of dobutamine during the stress. The maximum heart rate attained was 141 beats per minute. This was 93% of maximum predicted heart rate. During dobutamine infusion, there were no ST or T wave changes noted to suggest ischemia. No clinical angina was noted. No arrhythmias noted. Interpretation Summary The estimated ejection fraction is 65 %. Normal, adequate, dobutamine echocardiogram. Negative for ischemia by EKG and echocardiographic criteria. No anginal symptoms noted. No arrhythmias noted. Hypertensive blood pressure response to dobutamine. Final LVEF is 75%. Test terminated due to target heart rate achieved. Decreased sensitivity due to poor echo windows requiring Definity enhancement. Ordering Physician: Av Roach Referring Physician: Chito Mckeon Performed By: Bridgette Trinidad, SYED, RVT 01/02/18 1531 Date Chito Mckeon MD CC: Av Roach MD; Johnie Trinidad MD Date Dictated: 01/02/1837 Date Transcribed: 01/02/181530 Ring Cutter Lathe Operator: Signed BEDSIDE GLUCOSE Collected: 01/02/2018 Status: F Source: [place] 11:16 AM [facility] REPOSITORY TYPE CODE TESTS RESULT OUT OF REFERENCE UNITS RANGE LAB L501.080 70-110 mg/dL High BEDSIDE GLU 120 Result Comment: MANAGEMENT OF PATIENT CARE PER NURSING PROTOCOL Performed By: #### L501.080 #### [facility] Point of Care [address] [place] [address] BEDSIDE GLUCOSE Collected: 01/02/2018 Status: F Source: REGIN[place] 6:25 AM [facility]POSIT[facility] TYPE CODE TESTS RESULT OUT OF RANGE REFERENCE UNITS LAB L501.080 70-110 mg/dL Normal BEDSIDE GLU 95 Result Comment: MANAGEMENT OF PATIENT CARE PER NURSING PROTOCOL Performed By: #### L501.080 #### [facility] Point of Care [address] [place] [address] PROTHROMBIN TIME W/INR Collected: 01/02/2018 Status: F Source: REGINO 5:00 AM [facility] REPOSIT[facility] TYPE CODE TESTS RESULT OUT OF RANGE REFERENCE UNITS LAB L300.4150 11.7-14.9 SECONDS Normal PROTIME 13.9 LAB L300.4200 Normal INR 1.1 Performed By: #### L300.3900, L300.4310 #### [facility] [address] [place], [address] PARTIAL THROMBOPLAST Collected: 01/02/2018 Status: F Source: [place] TIME 5:00 AM [facility] REPOSITORY TYPE CODE TESTS RESULT OUT OF RANGE REFERENCE UNITS LAB L300.4310 24.1-36.2 Seconds Normal PTT 27.7 Performed By: #### L300.3900, L300.4310 #### [facility] [address] [place], [address] CBC W/DIFF, AUTOMATED Collected: 01/02/2018 Status: F Source: REGIN[place] 5:00 AM [facility]POSIT[facility] TYPE CODE TESTS RESULT OUT OF RANGE REFERENCE UNITS LAB L100.1000 4.4-11.0 K/mm3 Normal WBC 6.4 LAB L100.1200 4.6-6.2 M/mm3 Low RBC 3.56 LAB L100.1300 13.0-16.5 g/dl Low HGB 11.2 LAB L100.1400 40-54 % Low HCT 35.1 LAB L100.1500 80-94 fL High MCV 98.6 LAB L100.1600 27.0-32.0 pg Normal MCH 31.5 LAB L100.1700 32-36 g/gl Low MCHC 31.9 LAB L100.1810 11.6-14.6 % Normal RDW CV 13.4 LAB L100.1820 35.1-43.9 fl High RDW SD 48.2 LAB L100.1900 150-450 K/mm3 Normal PLT 252 LAB L100.2000 6.2-12.0 fl Normal MPV 9.8 LAB L100.2100 47-70 % Normal NEUT% 60.2 LAB L100.2200 19-41 % Normal LY% 22.4 LAB L100.2300 0-10 % High MONO% 12.8 LAB L100.2400 0-5 % Normal EO% 4.1 LAB L100.2500 0-1 % Normal BASO% 0.2 LAB L100.2550 0.0-0.9 % Normal IM GRAN % 0.300 Result Comment: IG% - Immature Granulocytes (promyelocytes, myelocytes and metamyelocytes) > 1% indicates that a LEFT SHIFT is Present. LAB L100.2620 2.0-7.7 X10 3/uL Normal Absolute Neut 3.8 LAB L100.2720 0.83-4.51 X10 3/ul Normal Absolute Lymph 1.42 Performed By: #### L100.0100 #### [facility] [address] [place], [place], [address] BASIC METABOLIC Collected: 01/02/2018 Status: F Source: [place] PROFILE (BMP) 5:00 AM [facility]POSIT[facility] TYPE CODE TESTS RESULT OUT OF RANGE REFERENCE UNITS LAB L501.0100 74-106 mg/dL Normal GLU 96 Result Comment: Please note revised GLUCOSE reference range effective 2017. LAB L501.1000 7-18 mg/dL High BUN 30 LAB L501.1100 0.70-1.30 mg/dL High CREAT,SERUM 1.88 Result Comment: The validity of the calculated GFR AND GFRAA in patients over 70 years has not been determined. Clinical correlation is essential. LAB L501.1110 >60 mL/min Low EST GFR 38 Result Comment: Non- GFR Calc LAB L501.1115 >60 mL/min Low EST GFR - AA 46 Result Comment: GFR Calc LAB L501.1255 ml/min Normal Estimated CRCL 38.29 LAB L501.1300 10-20 RATIO Normal BUN/CRE 16.0 LAB L501.2200 8.5-10 mg/dL Normal .1 CA 9.2 LAB L501.5300 136-14 mmol/L Normal 5 NA 144 LAB L501.5600 3.5-5. mmol/L Normal 1 K 4.6 LAB L501.5900 98-107 mmol/L High CL 112 LAB L501.6100 21.0-3 mmol/L Normal 2.0 CO2 25.0 LAB L501.6200 5-15 Normal GAP 7 Performed By: #### L500.2500 #### [facility] [address] [facility] [place], [place], [address] BEDSIDE GLUCOSE Collected: 01/01/2018 Status: F Source: [facility] 9:19 PM [facility]POSIT[facility] TYPE CODE TESTS RESULT OUT OF REFERENCE UNITS RANGE LAB L501.080 70-110 mg/dL High BEDSIDE GLU 146 Result Comment: MANAGEMENT OF PATIENT CARE PER NURSING PROTOCOL Performed By: #### L501.080 #### [facility] Point of Care [address] [facility] [place], [place] [address] TROPONIN-I Collected: 01/01/2018 Status: F Source: [facility] 4:44 PM [facility] REPOSITORY Order Comment: 'TROP' Serial specimen #1, #2 or #3: 3 TYPE CODE TESTS RESULT OUT OF RANGE REFERENCE UNITS LAB L501.4010 <0.045 ng/mL Normal < 0.015 TROPONIN-I Result Comment: TROPONIN-I EXPECTED VALUES <0.045 Negative 0.045 - 0.590 Consistent with Cardiac Damage > OR = 0.600 Critical Value Not every elevated troponin is indicative of [place]. These values should be used with clinical judgement in examining the patient's clinical picture for diagnosis. To establish a diagnosis of [place] versus myocardial injury, there must be a demonstrated rise and/or fall in the troponin values, in addition to ischemic symptoms, EKG changes, new regional wall motion abnormality, and/or angiographical evidence. PLEASE NOTE: REFERENCE RANGES EDITED 17 Performed By: #### L501.4010 #### [facility] [address] [place], [address] BEDSIDE GLUCOSE Collected: 01/01/2018 Status: F Source: [facility] 4:16 PM [facility] TYPE CODE TESTS RESULT OUT OF REFERENCE UNITS RANGE LAB L501.080 70-110 mg/dL High BEDSIDE GLU 129 Result Comment: MANAGEMENT OF PATIENT CARE PER NURSING PROTOCOL Performed By: #### L501.080 #### [facility] Point of Care [address] [place] [address] EMERGENCY DEPARTMENT Observed: 01/01/2018 Status: F Source: [facility] SUMMARY 3:55 PM [facility] REPOSITORY [facility] Medical Records Department [address] [place] [address] Emergency Department Summary 01/01/18 1045 MR#: [id number] Acct: [id number] Name: RENATO NOONAN Jr. Rep #: [id number] : 1950 67 From: Wandy Walton MD PCP: Johnie Trinidad MD Status: ADM ETHAN - ER Visit Summary Date of Service: 01/01/18 Chief Complaint: [] Intermittent chest pain for 2 days History of Present Illness: The patient is a 67 M [] of diabetes hypertension recent [place] in October, stent by Dr. Mckeon, he also has history of unspecified speech impediment, gait instability uses a cane ports of having intermittent chest pressure for the last 2 days no fever no cough no abdominal pain nothing triggers or really relieves the pain it comes and goes it is not typical of his angina that preceded the cardiac stent. His other health conditions have been stable. He does have attached to his body what appears to be a 30-day event monitor but he reports he has not noticed any obvious tachycardia or racing heart, his bowel and bladder habits been normal he reports he has developed an area of skin thickness to the left medial thigh region from insulin injections and so he is now injecting insulin and other parts of his body, he has no history of DVT or PE Physical Examination: [] Resting comfortably in the bed his vital signs are within normal range he has beach impediment but he has no history of stroke or seizure his HEENT exam is unremarkable the neck is supple the lungs are clear the heart tones are normal the abdomen soft nontender obese he is awake alert moving all 4 extremities he does have some skin fullness to the left medial thigh from insulin injections there is no signs of a DVT infection or other acute gross abnormalities neurologically he is awake to his baseline moving all 4 Test Results: [] Emergency Department Course and Treatment: [] Screening labs are obtained EKG shows a sinus rhythm nothing acute The patient's labs chest x-ray unremarkable, but the sister is concerned that he cannot function at home since his [place] he has had more difficulty he believes he may require different type of living arrangement His recent WY the chest pain in all the above I have asked the hospitalist see the patient for further management admission Treatment Plan: [] Disposition: [] Admit pending hospitalist evaluation Impression: [] Chest pain, recent WY, functional decline with current living situation This note was generated with [employer] dictation software. It may contain incorrect words, spelling, and punctuation that were not noted in review of the chart prior to signing ED Disposition - Plan for ED Patient: Chief Complaint: Chest Pain Referrals: Johnie Trinidad MD [Primary Care Provider] - What to do if you have Problems For any increased pain, shortness of breath, bleeding, nausea or vomiting, chest pain, or any unexpected problems, contact your Primary Care Provider. Call [facility] ([phone]) or report to the closest Emergency Room. Call 911 if necessary. 01/01/18 8799 <Electronically signed by Wandy Walton MD> Date Wandy Walton MD Cosigner Signature (If Indicated): Date CC: Johnie Trinidad MD HISTORY AND PHYSICAL Observed: 01/01/2018 Status: F Source: [facility] EXAM 1:57 PM [facility] RE[facility] Medical Records Department [address] [place] [address] History and Physical 01/01/18 1239 MR#: [id number] Acct: [id number] Name: RENATO NOONAN Jr. Rep #: [id number] : 1950 67 From: Av Roach MD PCP: Johnie Trinidad MD Status: ADM ETHAN Y Location: [place] [address] Problem List (1) Atherosclerotic heart disease of [place] coronary artery without angina pectoris Status: Chronic Comment: Anterior STEMI, LAURE to mid LAD: 2.5 X [address] Mckeon @ [facility] (2) Stented coronary artery Status: Chronic Comment: LAURE to mid LAD: 2.5 X [address] Mckeon @ [facility] (3) STEMI (ST elevation myocardial infarction) Status: Chronic Qualifiers: Involved coronary artery: right coronary artery Qualified Code(s): I21.11 - ST elevation (STEMI) myocardial infarction involving right coronary artery Comment: Anterior STEMI (4) Diabetes mellitus, type II Status: Chronic Qualifiers: Diabetes mellitus skilled nursing insulin use: with manager long term care use Diabetes mellitus complication status: with unspecified complications Qualified Code(s): E11.8 - Type 2 diabetes mellitus with unspecified complications; Z79.4 - half-way (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 Range 58-200+ He does have a pattern of waking with low Bg. Will reduce his pm lantus today and have him call back office with any further low BG. Reports taking insulin as directed as well as his oral agents. Is due for labs and I have ask him to do these today or tomorrow. BP recheck 134/76 (5) Bipolar disorder Status: Chronic Qualifiers: Active/Remission status: remission status unspecified Qualified Code(s): F31.9 - Bipolar disorder, unspecified (6) Atrial fibrillation Status: Chronic Qualifiers: Atrial fibrillation type: paroxysmal Qualified Code(s): I48.0 - Paroxysmal atrial fibrillation (7) Hyperlipidemia Status: Chronic Qualifiers: Hyperlipidemia type: pure hypercholesterolemia Qualified Code(s): E78.00 - Pure hypercholesterolemia, unspecified; E78.0 - Pure hypercholesterolemia (8) Neuropathy Status: Chronic (9) Hypertension Status: Chronic Qualifiers: Hypertension type: essential hypertension Qualified Code(s): I10 - Essential (primary) hypertension (10) Gout Status: Chronic Qualifiers: Gout site: unspecified site Gout etiology: unspecified cause Chronicity: unspecified Qualified Code(s): M10.9 - Gout, unspecified (11) Traumatic brain injury Status: Chronic (12) Arthritis Status: Chronic (13) Cellulitis Status: Acute History of Present Illness Date of Admission: 01/01/18 Chief Complaint: Chest pain The patient is a 67 year old M with significant past cardiac history including acute ST segment elevation WY involving the anterior wall on 11/19/2017 for which patient underwent LAURE/PTCA to his mid LAD. Patient presents with chest pain. Onset of pain 2 days prior to his admission. Patient described pain as pressure similar to what he experienced in October when he had his WY. Patient denied any lightheadedness no shortness of breath no nausea no vomiting. Presented to the emergency department where initial set of cardiac enzymes came back unremarkable. Given his significant past cardiac history decision was made to admit patient to monitored bed for subsequent evaluation. Past Medical History Past Medical History (Chronic Problems): Chronic Problems (Last Reviewed 01/01/18 @ 13:50 by Av Roach MD) Atherosclerotic heart disease of [place] coronary artery without angina pectoris (Chronic) Anterior STEMI, LAURE to mid LAD: 2.5 X [address] Mkceon @ [facility] Stented coronary artery (Chronic 11/19/17) LAURE to mid LAD: 2.5 X [address] Mckeon @ [facility] STEMI (ST elevation myocardial infarction) (Chronic 11/19/17) Anterior STEMI Diabetes mellitus, type II (Chronic) BG readings checked at various times of day. Range 58-200+ He does have a pattern of waking with low Bg. Will reduce his pm lantus today and have him call back office with any further low BG. Reports taking insulin as directed as well as his oral agents. Is due for labs and I have ask him to do these today or tomorrow. BP recheck 134/76 Bipolar disorder (Chronic) Atrial fibrillation (Chronic) Hyperlipidemia (Chronic) Neuropathy (Chronic) Hypertension (Chronic) Gout (Chronic) Traumatic brain injury (Chronic) Arthritis (Chronic) Medical History: Medical History (Last Reviewed 01/01/18 @ 13:50 by Av Roach MD) Atherosclerotic heart disease of [place] coronary artery without angina pectoris (Chronic) I25.10 Anterior STEMI, LAURE to mid LAD: 2.5 X [address] Mckeon @ [facility] STEMI (ST elevation myocardial infarction) (Chronic) Onset Date: 11/19/17 I21.3 Anterior STEMI Diabetes mellitus, type II (Chronic) E11.9 BG readings checked at various times of day. Range 58-200+ He does have a pattern of waking with low Bg. Will reduce his pm lantus today and have him call back office with any further low BG. Reports taking insulin as directed as well as his oral agents. Is due for labs and I have ask him to do these today or tomorrow. BP recheck 134/76 Bipolar disorder (Chronic) F31.9 Hyperlipidemia (Chronic) E78.5 Neuropathy (Chronic) G62.9 Hypertension (Chronic) I10 Traumatic brain injury (Chronic) S06.9X9A Arthritis (Chronic) M19.90 Afib I48.91 Anxiety F41.9 Arthritis M19.90 Back problem M53.9 Cataracts, bilateral H26.9 Depression F32.9 Diabetes type 2, controlled E11.9 GI problem R19.8 Headache R51 Heart disease I51.9 High cholesterol E78.00 Kidney disease N28.9 Osteoarthritis M19.90 Recurrent UTI N39.0 Seasonal allergies J30.2 HTN (hypertension) I10 Allergies atorvastatin [From Lipitor] Allergy (Verified 01/01/18 10:02) Unknown Penicillins Allergy (Verified 01/01/18 10:02) Unknown lisinopril Adverse Reaction (Unknown, Verified 01/01/18 10:02) unknown codeine Adverse Reaction (Verified 01/01/18 10:02) Upset Stomach doxycycline Adverse Reaction (Verified 01/01/18 10:02) Other nickel Adverse Reaction (Verified 01/01/18 10:02) Rash LYCOPEEN Adverse Reaction (Uncoded 01/01/18 10:02) Other Home Medications: Ambulatory Orders Medication Instructions Recorded Divalproex Sodium [Depakote] 1,500 mg PO BID 01/11/13 Glimepiride 2 mg PO DAILY 01/21/16 Esomeprazole Magnesium [Nexium 20 mg PO DAILY 04/09/16 Surgical History: Surgical History (Last Reviewed 01/01/18 @ 13:50 by Av Roach MD) Stented coronary artery (Chronic) Onset Date: 11/19/17 Z95.5 LAURE to mid LAD: 2.5 X [address] Mckeon @ [facility] Surgical History: - - Cardiac catheterization, T+A, R cataract, L shoulder surgery, R TKR. Psychiatric History: Bipolar, Schizophrenia Smoking Status: Never smoker - *Family History Maternal Family History: Family History (Last Reviewed 01/01/18 @ 13:50 by Av Roach MD) Father Arthritis Bleeding disorder Heart disease Hypertension Mother Hypertension History Items: - - Mother with a history of hypertension. Paternal Family History: Family History (Last Reviewed 01/01/18 @ 13:50 by Av Roach MD) Father Arthritis Bleeding disorder Heart disease Hypertension Mother Hypertension History Items: - - Father with a history of heart disease, coronary disease status post CABG 2. Review of Systems Constitutional: Denies: Anorexia, Chills, Fever, Night Sweats, Weight Change HEENT: Denies: Head Aches Cardiovascular: Reports: Chest Pain. Denies: Orthopnea Respiratory: Denies: Cough, Shortness of breath at rest, Shortness of breath upon exertion, Sputum production Gastrointestinal: Denies: Abdominal Pain, Hematemesis, Hematochezia Genitourinary: Denies: Dysuria, Frequency, Hematuria, Urgency Musculoskeletal: Denies: Joint Pain, Joint Tenderness Skin: Denies: Rash Neurological: Denies: Focal weakness, Numbness, Tingling Psychiatric: Denies: Homicidal Ideations, Suicidal Ideations Hematologic/ Lymphatic: Denies: Easy Bruising, Easy Bleeding VTE Information - Inpt Only VTE Present on Admission: No VTE Mechan Device Prophylaxis: Knee High GUILLERMINA Hose VTE Pharm Prophylaxis ordered?: Yes Objective: GENERAL: cooperative HEENT: Atraumatic; moist oral mucosa EYES; Anicteric, Normal Conjunctiva NECK; supple, normal thyroid, no distended JVD. RESPIRATORY: Diminished to auscultation bilaterally, CARDIOVASCULAR: Regular S1 S2, no audible murmurs GI: soft, non-tender, normoactive bowel sounds, : No Renal angle tenderness; EXTREMITIES: No edema, no clubbing, no cyanosis. MUSCULOSKELETAL: No Joint Tenderness; no muscle waisting NEURO: Awake; no lateralizing signs. SKIN: No Rash PSYCH; Normal affect - Physical Exam Vital Signs Temp Pulse Resp BP Pulse Ox 97.6 F L 69 18 146/80 H 98 01/01/18 10:03 01/01/18 12:38 01/01/18 12:38 01/01/18 12:38 01/01/18 12:38 Oxygen Flow Rate (L/min) 2 Oxygen Delivery Method Nasal Cannula Weight: 96.2 kg Body Mass Index (BMI) 30.4 Finger Stick Blood Glucose 152 Laboratory Tests Past 24 Hrs WBC 7.7 RBC 3.65 L WBC RBC Hgb Hct MCV MCH MCHC RDW RDW Differential Plt Count MPV Immature Gran % (Auto) Neut % (Auto) Lymph % (Auto) Assessment/Plan All Active Problems (Last Reviewed 01/01/18 @ 13:50 by Av Roach MD) Scalp laceration (Resolved) Cellulitis (Acute) Change in mental status (Resolved) Patient is a 67-year-old gentleman with history of recent anterior wall ST segment elevation WY with subsequent PTCA/LAURE to his mid LAD on 11/19/2017 who presents with chest pain 1. Chest pain patient has been admitted to a monitored bed. Plan is to rule out WY with serial cardiac enzymes, patient undergo a nuclear stress test if WY is ruled out with dobutamine stress echo which was discussed with patient's primary tape recorder repairer Dr. Mckeon. Plan is to consult him if patient stress test comes back abnormal 2. Atherosclerotic heart disease of [place] coronary artery with Anterior STEMI, LAURE to mid LAD on 11/19/17 3. Dyslipidemia: Patient is on atorvastatin 4. Paroxysmal atrial fibrillation 5. Diabetes mellitus type 2 medications including diabetic nephropathy as well as polyneuropathy 6. Hypertension-blood pressure controlled, home medications continued with dose adjustment as needed 7. Chronic kidney disease stage III patient kidney function at baseline 8. Bipolar disorder 9. 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 History of traumatic brain injury patient lives with his sister at home 11. Generalized osteoarthritis 12. Morbid obesity Advance planning; did discuss with the patient and family regarding her advanced directives as well as CODE STATUS. Did explain the various modalities involved ( FULL CODE, DNR CCA, DNR CCA with no intubation, and DNR CC ) patient elected to remain full code. Order was placed. Time spent on discussion 18 minutes. Clinical Impression(s) from Imaging Studies Chest X-Ray 01/01/18 10:35 IMPRESSION: Mild hypoventilatory change at the left lung base. No evidence of acute failure. Suspect probable underlying COPD. Electronically Signed: Suzanne Lo MD at 11:02 EDT , Service support , Code Visit OBSV E AND M: [id number] Initial observation care L3 Procedures: 55418 Advncd Care Plan 30 Min 01/01/18 1357 <Electronically signed by Av Roach MD> Date Av Roach MD Cosigner Signature: Date (if applicable) CC: Av Roach MD; Johnie Trinidad MD Signed CHEST 1 VIEW Observed: 01/01/2018 Status: F Source: [facility] (PORTABLE) 10:27 AM [facility] REPOSITORY [facility] Imaging Services [address] [place] [address] Chest 1 View (Portable) MR#: [id number] Acct: [id number] Name: RENATO NOONAN Rep #: [id number] : 1950 M 67 From: Suzanne Lo MD PCP: Johnie Trinidad MD Status: REG ER Study: Chest 1 View (Portable) Date of Exam: 01/01/18 Exam# [id number] Ordering Dr: Wandy Walton MD STUDY: X-RAY CHEST REASON FOR EXAM: Male, 67 years old. MIDSTERNAL CHEST PRESSURE, HX OF WY x2 MONTHS AGO TECHNIQUE: Single AP portable view of the chest. COMPARISON: Chest x-ray November 19, 2017, CT abdomen and pelvis July 24, 2015 FINDINGS: Cardiac monitoring leads are present. Mild hypoventilatory changes noted at the lung bases greater on the left with decreased visibility of the left hemidiaphragm since prior study. There are bilateral pericardial fat pads are prominent, this is seen in retrospective review of the CT abdomen and pelvis and contributes to the appearance. The upper lungs remain clear though hyperlucent suggesting probable underlying COPD. There is no demonstrated pleural abnormality. Normal size heart. Normal mediastinum and prerna. Normal visualized pulmonary arteries. There is atherosclerotic tortuosity of the aortic arch and descending thoracic aorta. Normal visualized thoracic spine. Normal visualized ribs, clavicles, and shoulders. There is no demonstrated abnormality of the visualized soft tissue structures of the upper abdomen. RAD/Chest 1 View (Portable) IMPRESSION: Mild hypoventilatory change at the left lung base. No evidence of acute failure. Suspect probable underlying COPD. Electronically Signed: Suzanne Lo MD at 11:02 EDT , Service support , CC: MD Orestes Walton; Johnie Trinidad MD Ring Cutter Lathe Operator: Signed CBC W/DIFF, AUTOMATED Collected: 01/01/2018 Status: F Source: [place] 10:10 AM [facility] REPOSIT[facility] TYPE CODE TESTS RESULT OUT OF RANGE REFERENCE UNITS LAB L100.1000 4.4-11.0 K/mm3 Normal WBC 7.7 LAB L100.1200 4.6-6.2 M/mm3 Low RBC 3.65 LAB L100.1300 13.0-16.5 g/dl Low HGB 11.4 LAB L100.1400 40-54 % Low HCT 36.2 LAB L100.1500 80-94 fL High MCV 99.2 LAB L100.1600 27.0-32.0 pg Normal MCH 31.2 LAB L100.1700 32-36 g/gl Low MCHC 31.5 LAB L100.1810 11.6-14.6 % Normal RDW CV 13.5 LAB L100.1820 35.1-43.9 fl High RDW SD 48.7 LAB L100.1900 150-450 K/mm3 Normal PLT 283 LAB L100.2000 6.2-12.0 fl Normal MPV 9.9 LAB L100.2100 47-70 % Normal NEUT% 48.3 LAB L100.2200 19-41 % Normal LY% 34.0 LAB L100.2300 0-10 % High MONO% 12.7 LAB L100.2400 0-5 % Normal EO% 4.4 LAB L100.2500 0-1 % Normal BASO% 0.3 LAB L100.2550 0.0-0.9 % Normal IM GRAN % 0.300 Result Comment: IG% - Immature Granulocytes (promyelocytes, myelocytes and metamyelocytes) > 1% indicates that a LEFT SHIFT is Present. LAB L100.2620 2.0-7.7 X10 3/uL Normal Absolute Neut 3.7 LAB L100.2720 0.83-4.51 X10 3/ul Normal Absolute Lymph 2.62 Performed By: #### L100.0100 #### [facility] [address] [place], [address] BASIC METABOLIC Collected: 01/01/2018 Status: F Source: [facility] PROFILE ([facility]) 10:10 AM [facility] REPOSIT[facility] TYPE CODE TESTS RESULT OUT OF RANGE REFERENCE UNITS LAB L501.0100 74-106 mg/dL Low GLU 68 Result Comment: Please note revised GLUCOSE reference range effective 2017. LAB L501.1000 7-18 mg/dL High BUN 35 LAB L501.1100 0.70-1.30 mg/dL High CREAT,SERUM 2.17 Result Comment: The validity of the calculated GFR AND GFRAA in patients over 70 years has not been determined. Clinical correlation is essential. LAB L501.1110 >60 mL/min Low EST GFR 32 Result Comment: Non- GFR Calc LAB L501.1115 >60 mL/min Low EST GFR - AA 39 Result Comment: GFR Calc LAB L501.1255 ml/min Normal Estimated CRCL 33.17 LAB L501.1300 10-20 RATIO Normal BUN/CRE 16.1 LAB L501.2200 8.5-10 mg/dL Normal .1 CA 8.8 LAB L501.5300 136-14 mmol/L Normal 5 NA 142 LAB L501.5600 3.5-5. mmol/L Normal 1 K 4.1 LAB L501.5900 98-107 mmol/L High CL 108 LAB L501.6100 21.0-3 mmol/L Normal 2.0 CO2 27.0 LAB L501.6200 5-15 Normal GAP 7 Performed By: #### L500.2500, L501.4010 #### [facility] [address] [facility] [place], [place], [id number] TROPONIN-I Collected: 01/01/2018 Status: F Source: [place]O 10:10 AM [facility] REPOS[facility] TYPE CODE TESTS RESULT OUT OF RANGE REFERENCE UNITS LAB L501.4010 <0.045 ng/mL Normal < 0.015 TROPONIN-I Result Comment: TROPONIN-I EXPECTED VALUES <0.045 Negative 0.045 - 0.590 Consistent with Cardiac Damage > OR = 0.600 Critical Value Not every elevated troponin is indicative of [place]. These values should be used with clinical judgement in examining the patient's clinical picture for diagnosis. To establish a diagnosis of [place] versus myocardial injury, there must be a demonstrated rise and/or fall in the troponin values, in addition to ischemic symptoms, EKG changes, new regional wall motion abnormality, and/or angiographical evidence. PLEASE NOTE: REFERENCE RANGES EDITED 17 Performed By: #### L500.2500, L501.4010 #### [facility] [address] [place], [address] BNP,B-TYPE NATRIURETIC Collected: 01/01/2018 Status: F Source: [facility] PEPTIDE 10:10 AM [facility] REPOSIT[facility] TYPE CODE TESTS RESULT OUT OF RANGE REFERENCE UNITS LAB L503.6620 0-100 pg/mL Normal B-TYPE 71.3 SARAH PEP Performed By: #### L503.6620 #### [facility] [address] [place], [address] D-DIMER QUANTITATIVE Collected: 01/01/2018 Status: F Source: REGINO (DVT/PE) 10:10 AM [facility] REPOSITORY TYPE CODE TESTS RESULT OUT OF RANGE REFERENCE UNITS LAB L300.8000 0.27-0.49 FEU/ug/m Normal D-DIMER 0.39 QUANT Result Comment: NORMAL D-Dimer level (<0.50) indicates no DVT or PE. Performed By: #### L300.8000 #### [facility] [address] [place], [address] PROGRESS Observed: 12/18/2017 Status: COMPLETED Source: [place] 4:08 PM [facility] [place] REPOSITORY HNO ID: [id number] Author: Antonia Salinas (Pa) Service: (none) Author Type: Physician Rental Car Porter Type: Progress Notes Filed: 12/18/2017 4:20 PM Note Text: [facility] PATIENT INFO: Renato Noonan Jr. CHIEF COMPLAINT: Urinary Frequency HPI: This is a 67 year old male who is her for Urinary Frequency, he has been off the Ditropan since July 2017 and started having mor urgency and frequency He had an WY 1 year ago but seems to be recovering fine. PVR: 82 ml Previous Studies Creatinine Date Value Ref Range Status 11/05/2017 1.86 (H) 0.73 - 1.22 mg/dL Final GUROS: Force of Stream: good Day Time Frequency: Yes Incomplete Emptying: Yes Urgency: Yes Dysuria: No Incontinence history: No MEDICATIONS fluticasone (FLONASE) 50 mcg/actuation nasal spray Use 2 Sprays in each nostril once daily. Rinse mouth after use. cetirizine (ZYRTEC) 10 mg tablet Take 1 tablet by mouth once daily. tiZANidine (ZANAFLEX) 2 mg tablet TAKE 1 TABLET BY MOUTH EVERY 6 HOURS NEEDED. FOR MUSCLE SPASMS atorvastatin (LIPITOR) 80 mg tablet Take 1 tablet by mouth daily at bedtime. For cholesterol. carvedilol (COREG) 6.25 mg tablet Take 1 tablet by mouth twice daily. ticagrelor (BRILINTA) 90 mg tablet Take 1 tablet by mouth twice daily. perphenazine 4 mg tablet Take 1.5 tablets by mouth once daily. at bedtime LEVEMIR FLEXTOUCH U-100 INSULN 100 unit/mL (3 mL) inpn injection INJECT 40 UNITS IN THE IN THE MORNING AND 36 UNITS AT AT BEDTIME OR DIRECTED gabapentin (NEURONTIN) 300 mg capsule TAKE 1 CAPSULE BY MOUTH ONCE DAILY IN IN THE EVENING ferrous sulfate 325 mg (65 mg iron) tablet TAKE 1 TABLET BY MOUTH DAILY WITH BREAKFAST. glimepiride (AMARYL) 2 mg tablet TAKE 1 TABLET BY MOUTH DAILY WITH BREAKFAST. esomeprazole (NEXIUM) 20 mg capsule TAKE 1 CAPSULE BY MOUTH DAILY BEFORE BREAKFAST. 1/2 HR. BEFORE MEAL. levothyroxine (SYNTHROID) 100 mcg tablet Take 1 tablet by mouth once daily. VICTOZA 2-RUBÉN 0.6 mg/0.1 mL (18 mg/3 mL) pnij INJECT 1.2 MG SUBCUTANEOUSLY ONCE DAILY. traMADol (ULTRAM) 50 mg tablet Take 50 mg by mouth every 8 hours as needed. flecainide acetate 150 mg tablet TAKE 1 TABLET BY MOUTH DAILY OXcarbazepine (TRILEPTAL) 300 mg tablet Take 2 tablets in the AM and 1 tablet in the PM aspirin, enteric coated (ASPIRIN, ENTERIC COATED) 81 mg EC tablet Take 1 tablet by mouth once daily. divalproex ER (DEPAKOTE ER) 500 mg 24 hr tablet Per [facility] take 1500 mg po Bid REVIEW OF SYSTEMS: GENERAL: No fever, chills, weight loss, or fatigue. PHYSICAL EXAM: Blood pressure 148/88, pulse 76, weight 95.3 kg (210 lb). GENERAL:WNL nutrition, no deformities, healthy appearing IMPRESSION/PLAN: > History of OAB - urgency > Restart Ditropan > Follow-Up in 1 year or sooner if no improvement Antonia Salinas MPAS, [place], PAJefryC Electronically signed CNOV Observed: 12/18/2017 Status: COMPLETED Source: [place] 3:00 PM [facility] REPOSITORY Office Visit (UROLWS) RENATO NOONAN ([id number]) 1950 M Date Time Provider Department 12/18/17 3:00 PM ANTONIA SALINAS) UROLWS During your visit today, we recorded the following information about you: Pulse Blood pressure Weight 76/minute 148/88 95.3 kg DAVIAN Lerner 12/18/2017 4:20 PM Signed [facility] PATIENT INFO: Renato Noonan Jr. CHIEF COMPLAINT: Urinary Frequency HPI: This is a 67 year old male who is her for Urinary Frequency, he has been off the Ditropan since July 2017 and started having mor urgency and frequency He had an WY 1 year ago but seems to be recovering fine. PVR: 82 ml Previous Studies Creatinine Date Value Ref Range Status 11/05/2017 1.86 (H) 0.73 - 1.22 mg/dL Final GUROS: Force of Stream: good Day Time Frequency: Yes Incomplete Emptying: Yes Urgency: Yes Dysuria: No Incontinence history: No MEDICATIONS fluticasone (FLONASE) 50 mcg/actuation nasal spray Use 2 Sprays in each nostril once daily. Rinse mouth after use. cetirizine (ZYRTEC) 10 mg tablet Take 1 tablet by mouth once daily. tiZANidine (ZANAFLEX) 2 mg tablet TAKE 1 TABLET BY MOUTH EVERY 6 HOURS NEEDED. FOR MUSCLE SPASMS atorvastatin (LIPITOR) 80 mg tablet Take 1 tablet by mouth daily at bedtime. For cholesterol. carvedilol (COREG) 6.25 mg tablet Take 1 tablet by mouth twice daily. ticagrelor (BRILINTA) 90 mg tablet Take 1 tablet by mouth twice daily. perphenazine 4 mg tablet Take 1.5 tablets by mouth once daily. at bedtime LEVEMIR FLEXTOUCH U-100 INSULN 100 unit/mL (3 mL) inpn injection INJECT 40 UNITS IN THE IN THE MORNING AND 36 UNITS AT AT BEDTIME OR DIRECTED gabapentin (NEURONTIN) 300 mg capsule TAKE 1 CAPSULE BY MOUTH ONCE DAILY IN IN THE EVENING ferrous sulfate 325 mg (65 mg iron) tablet TAKE 1 TABLET BY MOUTH DAILY WITH BREAKFAST. glimepiride (AMARYL) 2 mg tablet TAKE 1 TABLET BY MOUTH DAILY WITH BREAKFAST. esomeprazole (NEXIUM) 20 mg capsule TAKE 1 CAPSULE BY MOUTH DAILY BEFORE BREAKFAST. 1/2 HR. BEFORE MEAL. levothyroxine (SYNTHROID) 100 mcg tablet Take 1 tablet by mouth once daily. VICTOZA 2-RUBÉN 0.6 mg/0.1 mL (18 mg/3 mL) pnij INJECT 1.2 MG SUBCUTANEOUSLY ONCE DAILY. traMADol (ULTRAM) 50 mg tablet Take 50 mg by mouth every 8 hours as needed. flecainide acetate 150 mg tablet TAKE 1 TABLET BY MOUTH DAILY OXcarbazepine (TRILEPTAL) 300 mg tablet Take 2 tablets in the AM and 1 tablet in the PM aspirin, enteric coated (ASPIRIN, ENTERIC COATED) 81 mg EC tablet Take 1 tablet by mouth once daily. divalproex ER (DEPAKOTE ER) 500 mg 24 hr tablet Per [facility] take 1500 mg po Bid REVIEW OF SYSTEMS: GENERAL: No fever, chills, weight loss, or fatigue. PHYSICAL EXAM: Blood pressure 148/88, pulse 76, weight 95.3 kg (210 lb). GENERAL:WNL nutrition, no deformities, healthy appearing IMPRESSION/PLAN: > History of OAB - urgency > Restart Ditropan > Follow-Up in 1 year or sooner if no improvement nAtonia Salinas, FUENTESS, [place], PA-C Electronically signed Referring Provider: DANNIE JOHNSON ([facility]) [[id number]] Allergies As of Date: 12/18/2017 Noted Allergy Reaction CODEINE 08/21/2005 8 - GI Upset DOXYCYCLINE 08/22/2007 2 - Rash LIPITOR (ATORVASTATIN CALCIUM) 02/09/2014 14 - Other: See Comments Comments: CK elevation LISINOPRIL 09/12/2008 3 - Cough metals [Other] 02/20/2007 2 - Rash PENICILLINS 11/16/2004 Comments: as a child Date Reviewed: 12/18/2017 Reviewed by: Terri Bocanegra Ma - Fully Assessed Reason for Visit: New Patient [172] BPH [1368] Incontinence [338] Primary Visit Diagnosis:OAB (overactive bladder) [N32.81] Other Visit Diagnosis:Dysuria [R30.0] Order(s):UA DIP, URINE (POC) [[id number]] Order #: [id number] #:[id number] oxybutynin (DITROPAN) 5 mg tabletTAKE 1 TABLET BY MOUTH TWICE A DAY FOR URINARY URGENCYDisp: 90 tabletRfl: 3 Prescriptions as of 12/18/2017 Sig: OXYBUTYNIN CHLORIDE 5 MG TABL* TAKE 1 TABLET BY MOUTH TWICE * FLUTICASONE 50 MCG/ACTUATION * Use 2 Sprays in each nostril * CETIRIZINE 10 MG TABLET Take 1 tablet by mouth once d* TIZANIDINE 2 MG TABLET TAKE 1 TABLET BY MOUTH EVERY * ATORVASTATIN 80 MG TABLET Take 1 tablet by mouth daily * CARVEDILOL 6.25 MG TABLET Take 1 tablet by mouth twice * TICAGRELOR 90 MG TABLET Take 1 tablet by mouth twice * PERPHENAZINE 4 MG TABLET Take 1.5 tablets by mouth onc* LEVEMIR FLEXTOUCH U-100 INSUL* INJECT 40 UNITS IN THE IN THE* GABAPENTIN 300 MG CAPSULE TAKE 1 CAPSULE BY MOUTH ONCE * FERROUS SULFATE 325 MG (65 MG* TAKE 1 TABLET BY MOUTH DAILY * GLIMEPIRIDE 2 MG TABLET TAKE 1 TABLET BY MOUTH DAILY * ESOMEPRAZOLE MAGNESIUM 20 MG * TAKE 1 CAPSULE BY MOUTH DAILY* LEVOTHYROXINE 100 MCG TABLET Take 1 tablet by mouth once d* VICTOZA 2-RUBÉN 0.6 MG/0.1 ML (* INJECT 1.2 MG SUBCUTANEOUSLY * TRAMADOL 50 MG TABLET Take 50 mg by mouth every 8 h* FLECAINIDE 150 MG TABLET TAKE 1 TABLET BY MOUTH DAILY OXCARBAZEPINE 300 MG TABLET Take 2 tablets in the AM and * ASPIRIN 81 MG TABLET,DELAYED * Take 1 tablet by mouth once d* DIVALPROEX ER 500 MG TABLET,E* Per [facility] take 1500 mg po Bid Problem List As Of Date 12/18/2017 Noted Resolved LUMBAGO [M54.5] INVALID FOR* Nonallopathic lesion of thoracic region, not el*INVALID FOR*02/08/2016 Nonallopathic Lesion of Lumbar Region, not Else*INVALID FOR*04/13/2009 IDIOPATHIC SCOLIOSIS [M41.20] INVALID FOR* Sprain of lumbar region [S33.5XXA] INVALID FOR*02/08/2016 Unspecified schizophrenia, unspecified conditio* 08/31/2013 Priority: Very Severe Bipolar I disorder, most recent episode (or cur* 08/31/2013 ATRIAL FIBRILLATION [I48.91] ESOPHAGEAL REFLUX [K21.9] LUMBOSACRAL SPONDYLOSIS [M47.817] INVALID FOR* SPINAL STENOSIS-LUMBAR [M48.061] INVALID FOR* DISC DIS NEC/NOS-LUMBAR [M51.9] INVALID FOR* Other symptoms referable to back [M53.80] INVALID FOR*02/08/2016 SPONDYLOLISTHESIS [Q76.2] INVALID FOR* Pain in joint, pelvic region and thigh [M25.559]INVALID FOR*02/08/2016 CERVICAL SPONDYLOSIS [M47.812] INVALID FOR* Hyperlipidemia [E78.5] INVALID FOR* Osteoarthritis [M19.90] INVALID FOR* Pain in joint of right shoulder [M25.511] INVALID FOR* PSORIASIS [L40.8] INVALID FOR* Contact Dermatitis and Other Eczema, due to Uns*INVALID FOR*04/13/2009 XEROSIS///SEBACEOUS GLAND DIS NEC [L73.8] INVALID FOR*11/11/2012 Unspecified pruritic disorder [L29.9] INVALID FOR*11/11/2012 RASH///NONSPECIF SKIN ERUPT NEC [R21] INVALID FOR*11/11/2012 ACTINIC DAMAGE///CHR SOLAR SKIN DAMAGE NOS [L57*INVALID FOR*11/11/2012 Other seborrheic keratosis [L82.1] INVALID FOR*11/11/2012 Disorders of bursae and tendons in shoulder reg*INVALID FOR*02/08/2016 Renal failure, unspecified [N19] INVALID FOR*02/08/2016 BENIGN HYPERTENSION [I10] INVALID FOR* Contact dermatitis and other eczema due to othe*INVALID FOR*11/11/2012 Dyschromia, unspecified [L81.9] INVALID FOR*11/11/2012 Other Atopic Dermatitis and Related Conditions *INVALID FOR*04/13/2009 Stable Angina [I20.8] INVALID FOR* Acute gout [M10.9] INVALID FOR*02/08/2016 More... Gout [M10.9] INVALID FOR* Renal insufficiency [N28.9] INVALID FOR*02/08/2016 Diabetes (HCC) [E11.9] INVALID FOR* Other joint derangement, not elsewhere classifi*INVALID FOR*02/08/2016 Abnormality of gait [R26.9] INVALID FOR*02/08/2016 Tendonitis [M77.9] INVALID FOR*02/08/2016 Diabetes (HCC) [E11.9] INVALID FOR*06/07/2014 BPH NOS w ur obs/LUTS [N40.1, N13.8] INVALID FOR* Allergic conjunctivitis [H10.10] INVALID FOR*02/08/2016 Arthritis of knee [M17.10] INVALID FOR* Sciatica [M54.30] INVALID FOR* Sprain and strain of unspecified site of knee a*INVALID FOR*02/08/2016 Other acne [L70.8] INVALID FOR*02/08/2016 Other seborrheic dermatitis [L21.8] INVALID FOR*02/08/2016 Stasis dermatitis [I87.2] INVALID FOR* Actinic skin damage [L57.8] INVALID FOR*02/08/2016 Hypothyroidism [E03.9] INVALID FOR* Other atopic dermatitis and related conditions *INVALID FOR* Hip arthritis [M16.10] INVALID FOR* Neuropathy [G62.9] INVALID FOR* Rash [R21] INVALID FOR* Contusion of knee [S80.00XA] INVALID FOR*02/08/2016 Type 2 diabetes, uncontrolled, with renal manif*INVALID FOR*08/09/2013 CKD (chronic kidney disease) stage 3, GFR 30-59*INVALID FOR* Uncontrolled type 2 diabetes mellitus with diab*INVALID FOR* Schizoaffective disorder, bipolar type (HCC) [F*INVALID FOR* Venous insufficiency (chronic) (peripheral) [I8*INVALID FOR* Uncontrolled type 2 diabetes with neuropathy (H*INVALID FOR* Sprain of ligaments of cervical spine [S13.4XXA]INVALID FOR* Neck pain [M54.2] INVALID FOR*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 04/09/16 Ferrous Sulfate [Iron] 325 mg PO DAILY 04/09/16 Flecainide [Tambocor] 150 mg PO DAILY 04/09/16 Gabapentin [Neurontin] 900 mg PO DAILY 04/09/16 Losartan Potassium [Cozaar] 50 mg PO QHS 04/09/16 Meloxicam [Mobic] 15 mg PO DAILY 04/09/16 Levothyroxine [Synthroid] 100 mcg PO DAILY 09/07/16 Multivitamin [Daily Multiple Vitamin] 1 tab PO DAILY 09/07/16 aspirin 81 mg tablet,delayed release 81 mg PO QDAY 02/27/17 betamethasone dipropionate 0.05 % lotion 1 applic TOPICAL BID 02/27/17 diclofenac 1 % topical gel 2 g TOPICAL TID g 02/27/17 dulaglutide 0.75 mg/0.5 mL subcutaneous pen injector 0.75 mg SC QWEEK 02/27/17 fluticasone 50 mcg/actuation nasal spray,suspension 2 spray INTRANASAL QDAY 02/27/17 insulin detemir (U-100) 100 unit/mL (3 mL) subcutaneous pen 40 unit SC BID ml 02/27/17 metformin 500 mg tablet 500 mg PO BID tab 02/27/17 nitroglycerin 0.4 mg sublingual tablet 0.4 mg SUBLINGUAL Q5M PRN 02/27/17 oxcarbazepine 300 mg tablet 300 mg PO BID 02/27/17 polyethylene glycol 3350 17 gram/dose oral powder 17 g PO QDAY PRN 02/27/17 tizanidine 2 mg capsule 2 mg PO Q6H PRN cap 02/27/17 tramadol 50 mg tablet 50 mg PO Q8H PRN tab 02/27/17 triamcinolone acetonide 0.1 % topical cream 1 applic TOPICAL TID 02/27/17 Atorvastatin Calcium [Lipitor] 80 mg PO QHS #30 tab 11/21/17 Carvedilol [Coreg (Beta Summer)] 6.25 mg PO BID #60 tab 11/21/17 Ticagrelor [Brilinta] 90 mg PO BID #60 tab 11/21/17 Following Prescrptions Were Given to Patient: Atorvastatin Calcium [Lipitor] 80 mg PO QHS #30 tab Carvedilol [Coreg (Beta Summer)] 6.25 mg PO BID #60 tab Ticagrelor [Brilinta] 90 mg PO BID #60 tab Primary Care Physician: Johnie Trinidad MD [Primary Care Provider] - Please follow up with your Primary Care Physician in: 1-2 weeks Please Follow Up With: Chito Mckeon MD Please Follow Up With: Elizabeth,Dannie, [employer]LECT[employer]IC[employer] TH[employer]-C Medical Necessity - Tobacco Use Smoking Status: Never smoker Tobacco Use: Non-smoker Meaningful Use Info Meaningful Use Diagnoses (Choose all that apply): None applicable Code Visit Inpatient E AND M: 25096 Disch Hosp 11/21/17 1154 <Electronically signed by Columba Valdez MD> Date Columba Valdez MD Cosigner Signature (if applicable): Date CC: Columba Valdez M.D.; Johnie Trinidad MD Signed DISCHARGE INSTRUCTION Observed: 11/21/2017 Status: F Source: [facility] 11:49 AM [facility] REPOSITORY [facility] Medical Records Department [address] [place] [address] Instructions for Home/Discharge Instructions 11/21/17 1146 MR#: [id number] Acct: [id number] Name: RENATO NOONAN Rep #: [id number] : 1950 66 From: Columba Valdez MD PCP: Johnie Trinidad MD Status: ADM IN - Discharge Diagnoses Current Active Problems: Current Active and Chronic Problems (Last Reviewed 03/25/17 @ 14:24 by Scarlett Wharton) STEMI (ST elevation myocardial infarction) (Acute) Anterior STEMI You will use the following diet at home:: No restrictions, Regular Your food should be the consistency of: Regular Your liquids should be the consistency of: Regular/Thin Discharge Activity: Return to Normal Activity Allergies/Adverse Reactions: Allergies atorvastatin [From Lipitor] Allergy (Verified 09/16/17 15:54) Unknown Penicillins Allergy (Verified 09/16/17 15:54) Unknown codeine Adverse Reaction (Verified 09/16/17 15:54) Upset Stomach doxycycline Adverse Reaction (Verified 09/16/17 15:54) Other LYCOPEEN Adverse Reaction (Uncoded 09/16/17 15:54) Other 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 Adverse Reaction (Uncoded 09/16/17 15:54) Rash Medications to take at Discharge Divalproex Sodium [Depakote] 1,500 mg PO BID 01/11/13 Glimepiride 2 mg PO DAILY 01/21/16 Allopurinol [Zyloprim] 300 mg PO DAILY 04/09/16 Esomeprazole Magnesium [Nexium 24Hr] 20 mg PO DAILY 04/09/16 Ferrous Sulfate [Iron] 325 mg PO DAILY 04/09/16 Flecainide [Tambocor] 150 mg PO DAILY 04/09/16 Gabapentin [Neurontin] 900 mg PO DAILY 04/09/16 Losartan Potassium [Cozaar] 50 mg PO QHS 04/09/16 Meloxicam [Mobic] 15 mg PO DAILY 04/09/16 Levothyroxine [Synthroid] 100 mcg PO DAILY 09/07/16 Multivitamin [Daily Multiple Vitamin] 1 tab PO DAILY 09/07/16 aspirin 81 mg tablet,delayed release 81 mg PO QDAY 02/27/17 betamethasone dipropionate 0.05 % lotion 1 applic TOPICAL BID 02/27/17 diclofenac 1 % topical gel 2 g TOPICAL TID g 02/27/17 dulaglutide 0.75 mg/0.5 mL subcutaneous pen injector 0.75 mg SC QWEEK 02/27/17 fluticasone 50 mcg/actuation nasal spray,suspension 2 spray INTRANASAL QDAY 02/27/17 insulin detemir (U-100) 100 unit/mL (3 mL) subcutaneous pen 40 unit SC BID ml 02/27/17 metformin 500 mg tablet 500 mg PO BID tab 02/27/17 nitroglycerin 0.4 mg sublingual tablet 0.4 mg SUBLINGUAL Q5M PRN 02/27/17 oxcarbazepine 300 mg tablet 300 mg PO BID 02/27/17 polyethylene glycol 3350 17 gram/dose oral powder 17 g PO QDAY PRN 02/27/17 tizanidine 2 mg capsule 2 mg PO Q6H PRN cap 02/27/17 tramadol 50 mg tablet 50 mg PO Q8H PRN tab 02/27/17 triamcinolone acetonide 0.1 % topical cream 1 applic TOPICAL TID 02/27/17 Atorvastatin Calcium [Lipitor] 80 mg PO QHS #30 tab 11/21/17 Carvedilol [Coreg (Beta Summer)] 6.25 mg PO BID #60 tab 11/21/17 Ticagrelor [Brilinta] 90 mg PO BID #60 tab 11/21/17 The following prescriptions were given: Atorvastatin Calcium [Lipitor] 80 mg PO QHS #30 tab Carvedilol [Coreg (Beta Summer)] 6.25 mg PO BID #60 tab Ticagrelor [Brilinta] 90 mg PO BID #60 tab Primary Care Physician: Johnie Trinidad MD [Primary Care Provider] - Please follow up with your Primary Care Physician in: 1-2 weeks Test Results: Test results from this visit will be discussed in further detail at your follow-up appointment, if applicable. Please Follow Up With: Chito Mckeon MD Please Follow Up With: Dannie Johnson NP-C Proposed Discharge Date: 11/21/17 11/21/17 1149 <Electronically signed by Columba Valdez MD> Date Columba Valdez MD CC: Chito Mckeon MD; Johnie Trinidad MD BEDSIDE GLUCOSE Collected: 11/21/2017 Status: F Source: [facility] 11:23 AM [facility] REPOSITORY TYPE CODE TESTS RESULT OUT OF REFERENCE UNITS RANGE LAB L501.080 70-110 mg/dL High BEDSIDE GLU 194 Result Comment: MANAGEMENT OF PATIENT CARE PER NURSING PROTOCOL Performed By: #### L501.080 #### [facility] Point of Care [address] [place] [address] BEDSIDE GLUCOSE Collected: 11/21/2017 Status: F Source: [facility] 9:45 AM [facility] REPOSITORY TYPE CODE TESTS RESULT OUT OF REFERENCE UNITS RANGE LAB L501.080 70-110 mg/dL High BEDSIDE GLU 243 Result Comment: MANAGEMENT OF PATIENT CARE PER NURSING PROTOCOL Performed By: #### L501.080 #### [facility] Point of Care [address] [place] [address] BEDSIDE GLUCOSE Collected: 11/21/2017 Status: F Source: [facility] 6:57 AM [facility] REPOS[facility]ORY TYPE CODE TESTS RESULT OUT OF RANGE REFERENCE UNITS LAB L501.080 70-110 mg/dL Normal BEDSIDE GLU 85 Result Comment: MANAGEMENT OF PATIENT CARE PER NURSING PROTOCOL Performed By: #### L501.080 #### [facility] Point of Care [address] [place], [place] [address] BEDSIDE GLUCOSE Collected: 11/20/2017 Status: F Source: [facility] 9:25 PM [facility]POS[facility] TYPE CODE TESTS RESULT OUT OF REFERENCE UNITS RANGE LAB L501.080 70-110 mg/dL High BEDSIDE GLU 180 Result Comment: MANAGEMENT OF PATIENT CARE PER NURSING PROTOCOL Performed By: #### L501.080 #### [facility] Point of Care [address] [place], [place] [address] BEDSIDE GLUCOSE Collected: 11/20/2017 Status: F Source: [facility] 4:35 PM [facility] REPOS[facility]ORY TYPE CODE TESTS RESULT OUT OF REFERENCE UNITS RANGE LAB L501.080 70-110 mg/dL High BEDSIDE GLU 200 Result Comment: MANAGEMENT OF PATIENT CARE PER NURSING PROTOCOL Performed By: #### L501.080 #### [facility] Point of Care [address] [place] [address] 12 LEAD ELECTROCARDIOGRAM Observed: 11/20/2017 Status: F Source: [facility] 1:48 PM [facility] REPOSITORY [facility] Cardiovascular Services [address] [place] [address] 12 Lead EKG 11/19/17 0453 MR#: [id number] Acct: [id number] Name: RENATO NOONAN Jr. Rep #: [id number] : 1950 66 From: Jace Morris MD Attending Dr: Columba Valdez M.D. Status: ADM IN Ordering Dr: Samantha Ambrose Date: 11/19/17 Location: ICU Sex: M C Admitted: 11/19/17 Test Reason : AM EKG Blood Pressure : / mmHG Vent. Rate : 071 BPM Atrial Rate : 071 BPM P-R Int : 192 ms QRS Dur : 108 ms QT Int : 388 ms P-R-T Axes : 039 -34 099 degrees QTc Int : 421 ms Normal sinus rhythm Left axis deviation Low voltage QRS (limb leads) Poor R wave progression Anterior WY, age undetermined, cannot be excluded Abnormal ECG Confirmed by TU JASON, JACE ([id number]), staff editor TERESA BOWEN ([id number]) on 11/20/2017 1:48:02 PM Referred By: Chito Mckeon Confirmed By:JACE MORRIS MD 11/20/17 1348 Date Jace Morris MD CC: Samantha Ambrose; Chito Mckeon MD; Columba Valdez M.D.; Johnie Trinidad MD Signed BEDSIDE GLUCOSE Collected: 11/20/2017 Status: F Source: [facility] 11:47 AM [facility] REPOS[facility]ORY TYPE CODE TESTS RESULT OUT OF REFERENCE UNITS RANGE LAB L501.080 70-110 mg/dL High BEDSIDE GLU 193 Result Comment: MANAGEMENT OF PATIENT CARE PER NURSING PROTOCOL Performed By: #### L501.080 #### [facility] Point of Care [address] [place] [address] BEDSIDE GLUCOSE Collected: 11/20/2017 Status: F Source: [facility] 7:53 AM [facility] TYPE CODE TESTS RESULT OUT OF REFERENCE UNITS RANGE LAB L501.080 70-110 mg/dL High BEDSIDE GLU 125 Result Comment: MANAGEMENT OF PATIENT CARE PER NURSING PROTOCOL Performed By: #### L501.080 #### [facility] Point of Care [address] [place] [address] BEDSIDE GLUCOSE Collected: 11/19/2017 Status: F Source: [facility] 8:57 PM [facility] TYPE CODE TESTS RESULT OUT OF REFERENCE UNITS RANGE LAB L501.080 70-110 mg/dL High BEDSIDE GLU 245 Result Comment: MANAGEMENT OF PATIENT CARE PER NURSING PROTOCOL Performed By: #### L501.080 #### [facility] Point of Care [address] [place] [address] BEDSIDE GLUCOSE Collected: 11/19/2017 Status: F Source: [facility] 4:55 PM [facility] TYPE CODE TESTS RESULT OUT OF REFERENCE UNITS RANGE LAB L501.080 70-110 mg/dL High BEDSIDE GLU 254 Result Comment: MANAGEMENT OF PATIENT CARE PER NURSING PROTOCOL Performed By: #### L501.080 #### [facility] Point of Care [address] [place] [address] ECHOCARDIOGRAM COMPLETE Observed: 11/19/2017 Status: F Source: [facility] 1:27 PM [facility] REPOSITORY [facility] Cardiovascular Services [address] [place] [address] Echo Complete 11/19/17 1054 MR#: [id number] Acct: [id number] Name: RENATO NOONAN Jr. Rep #: [id number] : 1950 66 From: Chito Mckeon MD Attending Dr: Columba Valdez M.D. Status: ADM IN Ordering Dr: Samantha Ambrose Date: 11/19/17 Location: ICU Sex: M C Admitted: 11/19/17 Reason For Study: Chest pain Procedure This was a 2D Doppler, Color Flow transthoracic echocardiogram. Exam performed portable in ICU/CCU. Left Ventricle Mild concentric left ventricular hypertrophy. The estimated ejection fraction is 50-55 %. Stage 1 diastolic dysfunction. Mid-Anterior : Severely Hypokinetic. Mid-anteroseptal : Severely Hypokinetic. Right Ventricle Normal size and thickness. Normal systolic function. Atria Normal left atrium. Normal right atrium. Normal atrial septum. Mitral Valve The mitral valve is structurally normal. No prolapse or stenosis seen. Tricuspid Valve Normal tricuspid valve. Trivial tricuspid valve insufficiency. Right ventricular systolic pressure estimated to be 27 mmHg. Aortic Valve Trisinus/trileaflet aortic valve. Pulmonic Valve Normal pulmonic valve. Trivial pulmonic valve insufficiency. Great Vessels Normal aortic root. Mild atherosclerosis of the aortic arch. Normal inferior vena cava. Inferior vena cava collapse with sniff. Pericardium/Pleural No pericardial effusion. MMode/2D Measurements AND Calculations LVIDd: 4.9 cm IVSd: 1.4 cm Ao root diam: 3.1 cm LVIDs: 2.8 cm LVPWd: 0.99 cm LA dimension: 3.6 cm RVDd: 3.1 cm FS: 43.2 % LAV(MOD-bp): 43.4 ml LA A4 area: 17.4 cm2 RA A4 area: 9.9 cm2 LAV(MOD-bp) Indexed: 19.9 ml/m2 LAV(MOD-sp2): 36.6 ml LAV(MOD-sp4): 47.7 ml Doppler Measurements AND Calculations MV E max kenna: 53.6 cm/sec Lat Peak E' Kenna: 6.6 cm/sec Med Peak E' Kenna: 4.3 cm/sec MV A max kenna: 61.7 cm/sec E/E' lat: 8.1 E/E' med: 12.6 MV E/A: 0.87 Ao V2 max: 93.8 cm/sec LV V1 max: 76.9 cm/sec PA V2 max: 135.6 cm/sec Ao max P.5 mmHg LV V1 max P.4 mmHg TR max kenna: 232.9 cm/sec TR max P.7 mmHg Interpretation Summary Mild concentric left ventricular hypertrophy. Stage 1 diastolic dysfunction. Mid-Anterior : Severely Hypokinetic. Mid-anteroseptal : Severely Hypokinetic. Trivial tricuspid valve insufficiency. Right ventricular systolic pressure estimated to be 27 mmHg. There is no comparison study available. Ordering Physician: Samantha Ambrose Referring Physician: Chito Mckeon Performed By: Anabell Jay RDCS 11/19/17 1326 Date Chito Mckeon MD CC: Samantha Ambrose; Chito Mckeon MD; Columba Valdez M.D.; Johnie Trinidad MD Date Dictated: 11/19/17 1054 Date Transcribed: 11/19/17 1326 Ring Cutter Lathe Operator: Signed BEDSIDE GLUCOSE Collected: 11/19/2017 Status: F Source: [facility] 11:18 AM [facility] REPOS[facility]ORY TYPE CODE TESTS RESULT OUT OF REFERENCE UNITS RANGE LAB L501.080 70-110 mg/dL High BEDSIDE GLU 276 Result Comment: MANAGEMENT OF PATIENT CARE PER NURSING PROTOCOL Performed By: #### L501.080 #### [facility] Point of Care [address] [place] [address] TROPONIN-I Collected: 11/19/2017 Status: F Source: [facility] 8:05 AM [facility] REPOSITORY Order Comment: 'TROP' Serial specimen #1, #2 or #3: 3 TYPE CODE TESTS RESULT OUT OF RANGE REFERENCE UNITS LAB L501.4010 <0.045 ng/mL High alert 22.900 TROPONIN-I Result Comment: Critical Result(s) Called at: 08:40:27 11/19/2017 by: Aj yang in icu TROPONIN-I EXPECTED VALUES <0.045 Negative 0.045 - 0.590 Consistent with Cardiac Damage > OR = 0.600 Critical Value Not every elevated troponin is indicative of [place]. These values should be used with clinical judgement in examining the patient's clinical picture for diagnosis. To establish a diagnosis of [place] versus myocardial injury, there must be a demonstrated rise and/or fall in the troponin values, in addition to ischemic symptoms, EKG changes, new regional wall motion abnormality, and/or angiographical evidence. PLEASE NOTE: REFERENCE RANGES EDITED 17 Performed By: #### L501.4010 #### [facility] [address] [place], [address] EMERGENCY DEPARTMENT Observed: 11/19/2017 Status: F Source: [facility] SUMMARY 7:12 AM [facility] REPOSIT[facility] Medical Records Department [address] [place] [address] Emergency Department Summary 11/19/17 0159 MR#: [id number] Acct: [id number] Name: RENATO NOONAN Jr. Rep #: [id number] : 1950 66 From: Ariadna Cummings MD PCP: Johnie Trinidad MD Status: ADM IN - ER Visit Summary Date of Service: 11/19/17 Chief Complaint: Chest pain History of Present Illness: The patient is a 66 M who presents with 4 days of anterior chest pain. Patient states he came to the emergency room tonight because he could not get the pain to go away. He been trying to rub some creams on his chest or using a hot water bottle. He was seen by a nurse practitioner at his PCPs office today. Patient states they listen to his heart but did not do an EKG. History significant for diabetes, hypertension, high cholesterol, A. fib, bipolar disorder, TBI. Patient is not currently on anticoagulants. Physical Examination: Vital signs on arrival include a blood pressure of 201/110, temperature 97.7, heart rate 78, respiratory rate 24, pulse ox 95% on room air. Patient sitting upright in bed. He appears uncomfortable but he is in no acute distress. Heart is regular rate and rhythm. Lung sounds are clear. Abdomen is soft and nontender. Extremity examination reveals strong distal pulses throughout. Test Results: EKG reveals sinus rhythm at [address] elevation and inferior depression consistent with an acute anterior STEMI. Emergency Department Course and Treatment: STEMI alert was called. Labs are currently pending at this time. Patient has received aspirin, Brilinta, heparin. Due to his elevated blood pressure he was given sublingual nitroglycerin. I spoke with Dr. Mckeon and [facility] team is en route. Treatment Plan: [] Disposition: Admit Impression: Acute anterior STEMI This note was generated with [employer] dictation software. It may contain incorrect words, spelling, and punctuation that were not noted in review of the chart prior to signing ED Disposition - Plan for ED Patient: Chief Complaint: Chest Pain Referrals: Johnie Trinidad MD [Primary Care Provider] - What to do if you have Problems For any increased pain, shortness of breath, bleeding, nausea or vomiting, chest pain, or any unexpected problems, contact your Primary Care Provider. Call [facility] ([phone]) or report to the closest Emergency Room. Call 911 if necessary. 11/19/17711 <Electronically signed by Ariadna Cummings MD> Date Ariadna Cummings MD Cosigner Signature (If Indicated): Date CC: Johnie Trinidad MD BEDSIDE GLUCOSE Collected: 11/19/2017 Status: F Source: REGINO 6:51 AM [facility] REPOSITORY TYPE CODE TESTS RESULT OUT OF REFERENCE UNITS RANGE LAB L501.080 70-110 mg/dL High BEDSIDE GLU 264 Result Comment: MANAGEMENT OF PATIENT CARE PER NURSING PROTOCOL Performed By: #### L501.080 #### [facility] Point of Care [facility] [address] [place], [place] [address] TROPONIN-I Collected: 11/19/2017 Status: F Source: REGINO 4:50 AM [facility] REPOSITORY Order Comment: 'TROP' Serial specimen #1, #2 or #3: 2 TYPE CODE TESTS RESULT OUT OF RANGE REFERENCE UNITS LAB L501.4010 <0.045 ng/mL High alert 8.160 TROPONIN-I Result Comment: Critical Result(s) Called at: 05:20:19 11/19/2017 by: PAMELA SHOBE TO A.WHIMS,MANAGER MEETING TROPONIN-I EXPECTED VALUES <0.045 Negative 0.045 - 0.590 Consistent with Cardiac Damage > OR = 0.600 Critical Value Not every elevated troponin is indicative of [place]. These values should be used with clinical judgement in examining the patient's clinical picture for diagnosis. To establish a diagnosis of [place] versus myocardial injury, there must be a demonstrated rise and/or fall in the troponin values, in addition to ischemic symptoms, EKG changes, new regional wall motion abnormality, and/or angiographical evidence. PLEASE NOTE: REFERENCE RANGES EDITED 17 Performed By: #### L501.4010 #### [facility] [address] [place], [address] COMPREHENSIVE METABOLIC Collected: 11/19/2017 Status: F Source: [facility] 4:50 AM [facility] REPOSITORY TYPE CODE TESTS RESULT OUT OF RANGE REFERENCE UNITS LAB L501.0100 74-106 mg/dL High GLU 248 Result Comment: Glucose result greater than or equal to 200 mg/dL suggests DIABETES MELLITUS per A.D.A. criteria. Please note revised GLUCOSE reference range effective 2017. LAB L501.1000 7-18 mg/dL High BUN 32 LAB L501.1100 0.70-1.30 mg/dL High CREAT,SERUM 2.02 Result Comment: The validity of the calculated GFR AND GFRAA in patients over 70 years has not been determined. Clinical correlation is essential. LAB L501.1110 >60 mL/min Low EST GFR 35 Result Comment: Non- GFR Calc LAB L501.1115 >60 mL/min Low EST GFR - AA 42 Result Comment: GFR Calc LAB L501.1255 ml/min Normal Estimated CRCL 36.14 LAB L501.1300 10-20 RATIO Normal BUN/CRE 15.8 LAB L501.1500 6.4-8. g/dL Normal 2 T PROT 6.8 LAB L501.1800 3.2-5. g/dL Low 0 ALB 2.8 LAB L501.1950 2.2-4. g/dL Normal 2 GLOB 4.0 LAB L501.2000 0.9-2. RATIO Low 4 A/G 0.7 LAB L501.2200 8.5-10 mg/dL Normal .1 CA 9.1 LAB L501.4100 15-37 U/L High AST 53 LAB L501.4305 45-117 U/L Normal ALK P 84 LAB L501.4405 16-61 U/L Normal ALT 36 LAB L501.4600 0.20-1 mg/dL Low .00 T BILI 0.10 LAB L501.5300 136-14 mmol/L Normal 5 NA 142 LAB L501.5600 3.5-5. mmol/L Normal 1 K 5.0 LAB L501.5900 98-107 mmol/L Normal CL 107 LAB L501.6100 21.0-3 mmol/L Normal 2.0 CO2 24.0 LAB L501.6200 5-15 Normal GAP 11 Performed By: #### L500.4050, L500.4100, L501.5200 #### [facility] [address] [facility] [facility] [id number] LIPID PROFILE Collected: 11/19/2017 Status: F Source: [facility] 4:50 AM [facility] REPOSITORY TYPE CODE TESTS RESULT OUT OF RANGE REFERENCE UNITS LAB L501.4900 200 mg/dL Normal CHOL 193 Result Comment: <200 mg/dL Desirable 200-240 mg/dL Borderline >240 mg/dL High Risk LAB L501.5000 mg/dL Normal TRIG 196 Result Comment: The drugs N-Acetylcysteine and Metamizole may falsely depress this assay. Serum Triglycerides Reference Interval Normal <150 mg/dL Borderline high 150 - 199 mg/dL High 200 - 499 mg/dL Very High > or = 500 mg/dL LAB L501.6400 mg/dL Low HDL 37 Result Comment: The drugs N-Acetylcysteine and Metamizole may falsely depress this assay. Reference Range HDL <40 mg/dL Low HDL Cholesterol HDL >or= 60 mg/dL High HDL Cholesterol LAB L501.6500 0-130 mg/dL Normal LDL 117 LAB L501.6600 5-40 mg/dL Normal VLDL 39 Performed By: #### L500.4050, L500.4100, L501.5200 #### [facility] [address] [place], [place], [id number] MAGNESIUM Collected: 11/19/2017 Status: F Source: [facility] 4:50 AM [facility] REPOSITORY TYPE CODE TESTS RESULT OUT OF RANGE REFERENCE UNITS LAB L501.5200 1.6-2.6 mg/dL Normal MG 2.0 Performed By: #### L500.4050, L500.4100, L501.5200 #### [facility] [address] [facility] [place], [place], [address] HEMOGLOBIN A1C Collected: 11/19/2017 Status: F Source: REGINO 4:50 AM [facility] REPOSITORY TYPE CODE TESTS RESULT OUT OF RANGE REFERENCE UNITS LAB L501.9985 4.2-6.3 % High HGB A1C 7.2 Performed By: #### L501.9985 #### [facility] [address] [facility] [place], [place], [address] CBC-COMPLETE BLOOD CNT Collected: 11/19/2017 Status: F Source: REGIN[facility] NO DIFF 4:50 AM [facility] REPOSITORY TYPE CODE TESTS RESULT OUT OF RANGE REFERENCE UNITS LAB L100.1000 4.4-11.0 K/mm3 Normal WBC 9.0 LAB L100.1200 4.6-6.2 M/mm3 Low RBC 3.62 LAB L100.1300 13.0-16.5 g/dl Low HGB 11.6 LAB L100.1400 40-54 % Low HCT 36.1 LAB L100.1500 80-94 fL High MCV 99.7 LAB L100.1600 27.0-32.0 pg Normal MCH 32.0 LAB L100.1700 32-36 g/gl Normal MCHC 32.1 LAB L100.1810 11.6-14.6 % Normal RDW CV 13.6 LAB L100.1820 35.1-43.9 fl High RDW SD 48.9 LAB L100.1900 150-450 K/mm3 Normal PLT 233 LAB L100.2000 6.2-12.0 fl Normal MPV 10.3 Performed By: #### L100.0500 #### [facility] [address] [facility] [place], [place], [address] ACT ACTIVATED CLOTTING Collected: 11/19/2017 Status: F Source: REGINO TIME 3:08 AM [facility] REPOSITORY TYPE CODE TESTS RESULT OUT OF RANGE REFERENCE UNITS LAB L9100.0100 74-137 sec High ACTk CLOT 202 TIME Performed By: #### L9100.0100 #### [facility] Point of Care [address] [place] [address] ACT ACTIVATED CLOTTING Collected: 11/19/2017 Status: F Source: REGINO TIME 2:51 AM [facility] REPOSITORY TYPE CODE TESTS RESULT OUT OF RANGE REFERENCE UNITS LAB L9100.0100 74-137 sec High ACTk CLOT 147 TIME Performed By: #### L9100.0100 #### [facility] Point of Care [address] [place] [address] HISTORY AND PHYSICAL Observed: 11/19/2017 Status: F Source: REGINO EXAM 2:38 AM [facility] REPOSITORY [facility] Medical Records Department [address] [place] [address] History and Physical 11/19/17 0205 MR#: [id number] Acct: [id number] Name: SHAISTARENATO Evita Boswell Rep #: [id number] : 1950 66 From: Samantha Ambrose PCP: Johnie Trinidad MD Status: ADM IN Y Location: ICU ICU03-1 ADDENDUM by Samantha Ambrose on 11/19/17 at 0238 Code Visit Additional Review of Records: Chronic Kidney Disease Stage III Suspected: Admission BUN/Cr 33/2.11, baseline renal function 1.8-2, near baseline, continue hydration especially given intervention as noted, repeat BMP in AM. 11/19/17 0238 <Electronically signed by Samantha Ambrose > Date Samantha Ambrose cc: Samantha Ambrose; Johnie Trinidad MD * Signed Problem List (1) STEMI (ST elevation myocardial infarction) Status: Acute Qualifiers: Involved coronary artery: right coronary artery Qualified Code(s): I21.11 - ST elevation (STEMI) myocardial infarction involving right coronary artery Comment: Anterior STEMI (2) Diabetes mellitus, type II Status: Chronic Qualifiers: Diabetes mellitus manager long term care insulin use: with manager long term care use Diabetes mellitus complication status: with unspecified complications Qualified Code(s): E11.8 - Type 2 diabetes mellitus with unspecified complications; Z79.4 - computer terminal operator (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 Range 58-200+ He does have a pattern of waking with low Bg. Will reduce his pm lantus today and have him call back office with any further low BG. Reports taking insulin as directed as well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 is unremarkable. Neck is nontender Lungs are clear and equal bilaterally. Heart is regular rate and rhythm. Extremities are right anterior shoulder tenderness with AFROM, NVID Skin is warm and dry. No focal neurologic deficit. Remainder of exam is unremarkable. Emergency Department Course and Treatment: Patient was given Tylenol p.o. Right shoulder x-ray shows no acute process. Patient is advised to ice. Advised to follow-up with primary care physician. Advised return ED if worsening complaints. Disposition: Discharge home Impression: Right shoulder contusion This note was generated with [employer] dictation software. It may contain incorrect words, spelling, and punctuation that were not noted in review of the chart prior to signing ED Disposition - Plan for ED Patient: Chief Complaint: Upper Extremity Injury Referrals: Johnie Trinidad MD [Primary Care Provider] - What to do if you have Problems For any increased pain, shortness of breath, bleeding, nausea or vomiting, chest pain, or any unexpected problems, contact your Primary Care Provider. Call [facility] ([phone]) or report to the closest Emergency Room. Call 911 if necessary. 06/08/17 0025 <Electronically signed by Niki Escobedo MD> Date Niki Escobedo MD Cosigner Signature (If Indicated): Date CC: Johnie Trinidad MD DISCHARGE INSTRUCTION Observed: 06/07/2017 Status: F Source: [facility] 4:57 PM [facility] REPOSITORY [facility] Medical Records Department [address] [place] [address] Discharge Instruction 06/07/171656 MR#: [id number] Acct: [id number] Name: RENATO NOONAN JrTwin Rep #: [id number] : 1950 66 From: Niki Escobedo MD PCP: Johnie Trinidad MD Status: PRE ER ED Disposition - Plan for ED Patient: Chief Complaint: Upper Extremity Injury Instructions: ED Contusion Upper Ext Referrals: Johnie Trinidad MD [Primary Care Provider] - What to do if you have Problems For any increased pain, shortness of breath, bleeding, nausea or vomiting, chest pain, or any unexpected problems, contact your Primary Care Provider. Call [facility] ([phone]) or report to the closest Emergency Room. Call 911 if necessary. 06/07/171656 <Electronically signed by Niki Escobedo MD> Date Niki Escobedo MD Cosigner Signature (If Indicated): Date CC: Johnie Trinidad MD SHOULDER MIN 2 VIEWS Observed: 06/07/2017 Status: F Source: [facility] 4:07 PM [facility] REPOSIT[facility] Imaging Services [address] [place] [address] Shoulder min 2 Views MR#: [id number] Acct: [id number] Name: RENATO NOONAN JrTwin Rep #: [id number] : 1950 M 66 From: Yumiko Bowen MD PCP: Johnie Trinidad MD Status: PRE ER Study: Shoulder min 2 Views Date of Exam: 06/07/17 Exam# [id number] Ordering Dr: Niki Escobedo MD STUDY: X-RAY - RIGHT SHOULDER REASON FOR EXAM: Male, 66 years old. Right-sided shoulder pain. TECHNIQUE: 2 view(s) of the shoulder. COMPARISON: Radiographs of the right shoulder dated December 09, 2016. FINDINGS: There is mild degenerative arthrosis of the glenohumeral articulation. There is hypertrophic osteoarthrosis of the acromioclavicular joint with inferior osseous spur formation. Normal acromion. There is an acromial spur. There is demineralization of the humerus and visualized osseous structures. The soft tissue structures are unremarkable. There is no demonstrated fracture. Normal visualized pulmonary apex. RAD/Shoulder min 2 Views IMPRESSION: Degenerative arthropathy of the right shoulder. 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 Operator: Signed PROGRESS Observed: 06/05/2017 Status: COMPLETED Source: [place] 12:06 PM [facility] [place] REPOSITORY O ID: [id number] Author: Conchis (Pt) Jonas Service: (none) Author Type: Physical Therapist Type: Progress Notes Filed: 06/08/2017 7:12 AM Note Text: Episode Visit Count: 12 Therapist That Will Oversee The Plan Of Care: Conchis Mcdaniel PT Start of Care Date: 04/14/17 Onset Date: 01/12/17 Plan of Care Certification Date: 04/14/17 [facility] PHYSICAL THERAPY DISCONTINUANCE OF CARE PLAN OF CARE UPDATE: Assessment: Renato Evita Adhikariy is discontinued from Physical Therapy services due to maximal benefit. Patient does not perform his HEP on a regular basis. He knows what he needs to do but is not always motivated to do so. Patient has reached max benefit with skilled PT for his L knee, L shoulder, and R ankle. Patient was seen for 12 visits from Start of Care Date: 04/14/17 to 06/05/2017 and treatment included: Therapeutic exercise, Manual therapy, Self-long term management, Patient/Family/Caregiver Education and General conditioning. Goals updated on 06/05/17 [place] in home exercise program.--NOT MET Patient will increase strength of B hip and knee muscles to 5/5 to allow for normalized gait mechanics.--PARTIALLY MET Increase ROM of L shoulder flexion to 153 to equal R shoulder flexion.--MET Patient will report no falls.--MET Improve score on Timed Up and Go Test to 8 seconds to reflect decreased fall risk.--MET Improve score on 30 Second Chair Stand to 10 repetitions to reflect decreased fall risk.--MET Patient will improve his/her AM-PAC T-scale score by 4 points to indicate a Minimal Clincial Important Difference.(Goal: 56.39) --Not MET Goals added 05/15/17 for Ankle Patient will improve R AROM to equal L to return to PLOF.--Not MET Patient will improve R ankle strength to 5/5 to improve gait.--Not MET G CODE REPORTING Based on clinical assessment and the score on the AM-PAC Scale Score Assessment Tool, the G code and corresponding severity modifiers are documented below. Evaluation: 04/14/2017 Current Status: Mobility: Walking and Moving Around: G8978 CK 40-59% impaired Goal Status: Mobility: Walking and Moving Around: G8979 20-39% Impaired Progress Report: 05/08/2017 Current Status: Mobility: Walking and Moving Around: G8978 CK 40-59% impaired Goal Status: Mobility: Walking and Moving Around: G8979 20-39% impaired Re-Eval: 05/15/2017 Current Status: Mobility: Walking and Moving Around: G8978 CK 40-59% impaired Goal Status: Mobility: Walking and Moving Around: G8979 20-39% impaired Discharge: 06/08/2017 Goal Status: Mobility: Walking and Moving Around: G8979 20-39% impaired Discharge: Mobility: Walking and Moving Around: G8980 CK 40-59% impaired SUBJECTIVE: Patient reports he did a few exercises this morning. One of the exercises was standing tracing the ABCs with his R ankle (educated patient that was not safe and is to be done seated.) Able to lift things better now with L shoulder. Can get things out of the cupboard. Sometimes he wears his R knee brace; finds a huge difference. Hasn't been wearing his R ankle brace. Plans on wearing his R ankle brace today until he sees Dr. Her next week. Patient is concerned about his tremors in his hands and fingers. States he is thinking of his posture more. Pain Score: 2/10 Pain Location: Neck - Left;Shoulder - Left Description: Sore Frequency: Continuous Post Treatment Pain Score: No Change OBJECTIVE MEASURES WITH LEVEL OF FUNCTION: LE AROM R Ankle Dorsiflexion: 15 Degrees R Ankle Plantar Flexion: 45 Degrees R Ankle Inversion: 15 R Ankle Eversion: 20 L Ankle Dorsiflexion: 20 Degrees L Ankle Plantar Flexion: 45 Degrees L Ankle Inversion: 20 L Ankle Eversion: 30 LE Strength R Hip Flexion: 4/5 R Hip ABduction: 5/5 R Hip ADduction: 5/5 R Knee Extension: 4+/5 R Knee Flexion: 5/5 R Ankle Dorsiflexion: 4/5 R Ankle Plantar Flexion: 4-/5 R Ankle Inversion: 4/5 R Ankle Eversion: 4-/5 L Hip Flexion: 4+/5 L Hip ABduction: 5/5 L Hip ADduction: 4/5 L Knee Extension: 4+/5 L Knee Flexion: 5/5 L Ankle Dorsiflexion: 5/5 L Ankle Plantar Flexion: 5/5 L Ankle Inversion: 5/5 L Ankle Eversion: 5/5 [place] 21.5 cm TREATMENT: Therapeutic Exercise: 3: Scapular retraction with emphasis on posture 2x15 6: Standing B toe raises 2x15. 10: Seated right ankle green Rep band ankle df,pf,inv and evr 3x15. 11: Tracing ABCs with R ankle seated was difficult as he doesn't know the entire alphabet. Had patient trace his First name, middle initial, and last name as well as Month, day, and year, 2x 12: Posture Perfect standing against door 30 sec, 4x 14: Reviewed HEP and stressed the importance to perform daily. 15: Chin Tucks 2x10 (cues for form) Skilled Intervention: Patient was educated in proper exercise technique and purpose for exercises. Skilled judgment was provided in selection of appropriate interventions. Patient education as noted. Billing: [facility]: Therapeutic Exercise (60995): 1:1 time: 45 minutes (3 units: 38-52 mins) Total time: 45 minutes Conchis Mcdaniel PT CNTHERAPY Observed: 06/05/2017 Status: COMPLETED Source: [place] 11:45 AM [facility] OT/PT/Speech Visit (PTWS) RENATO NOONAN JR. ([id number]) 1950 M Date Time Provider Department 06/05/17 11:45 AM CONCHIS MCDANIEL (PT) PTWS Date Time Provider Department Center 06/05/2017 11:45 AM [id number], DIANA (PT)PTWS [facility] Reason for Visit: PT Progress Note [1596] PT Discharge [752] Primary Visit Diagnosis:Acute pain of left shoulder [M25.512] Other Visit Diagnoses:Right ankle pain, unspecified chronicity [M25.571] Acute pain of left knee [M25.562] Allergies As of Date: 06/05/2017 Noted Allergy Reaction CODEINE 08/21/2005 8 - GI Upset DOXYCYCLINE 08/22/2007 2 - Rash LIPITOR (ATORVASTATIN CALCIUM) 02/09/2014 14 - Other: See Comments Comments: CK elevation LISINOPRIL 09/12/2008 3 - Cough PENICILLINS 11/16/2004 Comments: as a child metals [Other] 02/20/2007 2 - Rash Date Reviewed: 05/28/2017 Reviewed by: Chela Mijares Ma - Fully Assessed Prescriptions as of 06/05/2017 Sig: LEVEMIR FLEXTOUCH U-100 INSUL* INJECT 40 UNITS IN THE IN THE* SELENIUM SULFIDE 2.5 % LOTION SHAMPOO TWICE A WEEKS DIRE* ESOMEPRAZOLE MAGNESIUM 20 MG * TAKE 1 CAPSULE BY MOUTH DAILY* AMLODIPINE 10 MG TABLET TAKE 1 TABLET BY MOUTH ONCE D* GLIMEPIRIDE 2 MG TABLET TAKE 1 TABLET BY MOUTH DAILY * FLECAINIDE 150 MG TABLET TAKE 1 TABLET BY MOUTH DAILY ALLOPURINOL 300 MG TABLET TAKE 1 TABLET BY MOUTH ONCE D* LIRAGLUTIDE 0.6 MG/0.1 ML (18* Inject 1.2 mg subcutaneously * LANCETS TEST BLOOD SUGAR THREE TIMES * TIZANIDINE 2 MG TABLET TAKE 1 TABLET BY MOUTH EVERY * METOPROLOL TARTRATE 50 MG TAB* Take 1 tablet by mouth twice * PEN NEEDLE, DIABETIC 31 GAUGE* Use twice daily for insulin a* BLOOD-GLUCOSE METER Test blood sugar three times * MUPIROCIN 2 % TOPICAL OINTMENT APPLY TO AFFECTED AREA(S) ON * KETOCONAZOLE 2 % SHAMPOO APPLY TO AFFECTED AREA(S) ONC* TAMSULOSIN 0.4 MG CAPSULE TAKE 2 CAPSULES EVERY EVENING* OXYBUTYNIN CHLORIDE 5 MG TABL* TAKE 1 TABLET BY MOUTH TWICE * TRIAMCINOLONE ACETONIDE 0.1 %* APPLY TO AFFECTED AREA(S) THR* NITROSTAT 0.4 MG SUBLINGUAL T* DISSOLVE ONE TABLET UNDER/ON * GABAPENTIN 300 MG CAPSULE Take 1 capsule by mouth once * GABAPENTIN 600 MG TABLET Take 1 capsule by mouth once * FERROUS SULFATE 325 MG (65 MG* Take 1 tablet by mouth daily * BLOOD SUGAR DIAGNOSTIC STRIPS Test blood sugar 3-4 times da* MULTIVITAMIN TABLET Take 1 tablet by mouth once d* LEVOTHYROXINE 100 MCG TABLET Take 1 tablet by mouth once d* VOLTAREN 1 % TOPICAL GEL APPLY TO AFFECTED AREA. APPL* LEG BRACE One knee brace LANCETS test 3-5X daily - dx diabete* COMPOUNDED PRESCRIPTION Lancet Device of choice. OXCARBAZEPINE 300 MG TABLET Take 2 tablets in the AM and * ASPIRIN 81 MG TABLET,DELAYED * Take 1 tablet by mouth once d* DIVALPROEX ER 500 MG TABLET,E* Per [facility] take 1500 mg po Bid PERPHENAZINE 8 MG TABLET Take 1 tablet by mouth once d* Progress Notes: Conchis Mcdaniel PT 06/08/2017 7:12 AM Signed Episode Visit Count: 12 Therapist That Will Oversee The Plan Of Care: Conchis Mcdaniel PT Start of Care Date: 04/14/17 Onset Date: 01/12/17 Plan of Care Certification Date: 04/14/17 REHABILITATION AND SPORTS THERAPY PHYSICAL THERAPY DISCONTINUANCE OF CARE PLAN OF CARE UPDATE: Assessment: Renato Noonan Jr. is discontinued from Physical Therapy services due to maximal benefit. Patient does not perform his HEP on a regular basis. He knows what he needs to do but is not always motivated to do so. Patient has reached max benefit with skilled PT for his L knee, L shoulder, and R ankle. Patient was seen for 12 visits from Start of Care Date: 04/14/17 to 06/05/2017 and treatment included: Therapeutic exercise, Manual therapy, Self-long term management, Patient/Family/Caregiver Education and General conditioning. Goals updated on 06/05/17 [place] in home exercise program.--NOT MET Patient will increase strength of B hip and knee muscles to 5/5 to allow for normalized gait mechanics.--PARTIALLY MET Increase ROM of L shoulder flexion to 153 to equal R shoulder flexion.--MET Patient will report no falls.--MET Improve score on Timed Up and Go Test to 8 seconds to reflect decreased fall risk.--MET Improve score on 30 Second Chair Stand to 10 repetitions to reflect decreased fall risk.--MET Patient will improve his/her AM-PAC T-scale score by 4 points to indicate a Minimal Clincial Important Difference.(Goal: 56.39) --Not MET Goals added 05/15/17 for Ankle Patient will improve R AROM to equal L to return to PLOF.--Not MET Patient will improve R ankle strength to 5/5 to improve gait.--Not MET G CODE REPORTING Based on clinical assessment and the score on the AM-PAC Scale Score Assessment Tool, the G code and corresponding severity modifiers are documented below. Evaluation: 04/14/2017 Current Status: Mobility: Walking and Moving Around: G8978 CK 40-59% impaired Goal Status: Mobility: Walking and Moving Around: G8979 20-39% Impaired Progress Report: 05/08/2017 Current Status: Mobility: Walking and Moving Around: G8978 CK 40-59% impaired Goal Status: Mobility: Walking and Moving Around: G8979 20-39% impaired Re-Eval: 05/15/2017 Current Status: Mobility: Walking and Moving Around: G8978 CK 40-59% impaired Goal Status: Mobility: Walking and Moving Around: G8979 20-39% impaired Discharge: 06/08/2017 Goal Status: Mobility: Walking and Moving Around: G8979 20-39% impaired Discharge: Mobility: Walking and Moving Around: G8980 CK 40-59% impaired SUBJECTIVE: Patient reports he did a few exercises this morning. One of the exercises was standing tracing the ABCs with his R ankle (educated patient that was not safe and is to be done seated.) Able to lift things better now with L shoulder. Can get things out of the cupboard. Sometimes he wears his R knee brace; finds a huge difference. Hasn't been wearing his R ankle brace. Plans on wearing his R ankle brace today until he sees Dr. Her next week. Patient is concerned about his tremors in his hands and fingers. States he is thinking of his posture more. Pain Score: 2/10 Pain Location: Neck - Left;Shoulder - Left Description: Sore Frequency: Continuous Post Treatment Pain Score: No Change OBJECTIVE MEASURES WITH LEVEL OF FUNCTION: LE AROM R Ankle Dorsiflexion: 15 Degrees R Ankle Plantar Flexion: 45 Degrees R Ankle Inversion: 15 R Ankle Eversion: 20 L Ankle Dorsiflexion: 20 Degrees L Ankle Plantar Flexion: 45 Degrees L Ankle Inversion: 20 L Ankle Eversion: 30 LE Strength R Hip Flexion: 4/5 R Hip ABduction: 5/5 R Hip ADduction: 5/5 R Knee Extension: 4+/5 R Knee Flexion: 5/5 R Ankle Dorsiflexion: 4/5 R Ankle Plantar Flexion: 4-/5 R Ankle Inversion: 4/5 R Ankle Eversion: 4-/5 L Hip Flexion: 4+/5 L Hip ABduction: 5/5 L Hip ADduction: 4/5 L Knee Extension: 4+/5 L Knee Flexion: 5/5 L Ankle Dorsiflexion: 5/5 L Ankle Plantar Flexion: 5/5 L Ankle Inversion: 5/5 L Ankle Eversion: 5/5 [place] 21.5 cm TREATMENT: Therapeutic Exercise: 3: Scapular retraction with emphasis on posture 2x15 6: Standing B toe raises 2x15. 10: Seated right ankle green Rep band ankle df,pf,inv and evr 3x15. 11: Tracing ABCs with R ankle seated was difficult as he doesn't know the entire alphabet. Had patient trace his First name, middle initial, and last name as well as Month, day, and year, 2x 12: Posture Perfect standing against door 30 sec, 4x 14: Reviewed HEP and stressed the importance to perform daily. 15: Chin Tucks 2x10 (cues for form) Skilled Intervention: Patient was educated in proper exercise technique and purpose for exercises. Skilled judgment was provided in selection of appropriate interventions. Patient education as noted. Billing: [facility]: Therapeutic Exercise ([id number]): 1:1 time: 45 minutes (3 units: 38-52 mins) Total time: 45 minutes Conchis Mcdaniel PT PROGRESS Observed: 06/03/2017 Status: COMPLETED Source: [place] 1:28 PM [facility] REPOSITORY HNO ID: [id number] Author: Conchis (Pt) Jonas Service: (none) Author Type: Physical Therapist Type: Progress Notes Filed: 06/04/2017 10:05 AM Note Text: Episode Visit Count: 11 Therapist That Will Oversee The Plan Of Care: Conchis Mcdaniel PT Start of Care Date: 04/14/17 Onset Date: 01/12/17 Plan of Care Certification Date: 04/14/17 REHABILITATION AND SPORTS THERAPY PHYSICAL THERAPY TREATMENT NOTE ASSESSMENT: Renato Noonan Jr. demonstrated difficulty with upright posture, continual pain, and follow through with HEP. Patient was able to improve walking today with improved chuck and less shuffling after performing standing forward and lateral taps onto 6 step. The patient will continue to benefit from continued skilled physical therapy for reduction in pain, increase strength and postural strengthening. PLAN FOR NEXT VISIT: POC update: 06/05/2017. Continue to advance standing ex per patient tolerance, left shoulder , left knee and right ankle strengthening. SUBJECTIVE: Patient reports he is having a bad day today. He reports he has not been sleeping much lately. He reports he has not done exercise since last seen. Pain Score: 4/10 Pain Location: Neck;Shoulder - Left;Shoulder - Right;Knee - Left Description: Aching Frequency: Continuous Post Treatment Pain Score: 3/10 Post Treatment Pain Description: (decrease intensity of pain) OBJECTIVE MEASURES WITH LEVEL OF FUNCTION: Posture / Alignment Posture: Forward head;Rounded shoulders;Thoracic kyphosis TREATMENT: Therapeutic Exercise: 1: Green rep band left shoulder biceps and triceps strengthening 2x15. 2: Standing B heel raises 2x15. 3: Scapular retraction with emphasis on posture 2x15 4: Green Rep band scapular retraction seated 2x15 with verbal cues for proper form. 5: sit to stand from chair 1x9 and 1x8 prior to fatigue 6: Standing B toe raises 2x15. 7: Right standing gastroc stretch 2x30 seconds with verbal and visual cues for form. 8: Standing in ll bars forward step taps onto 6 step B 2x10 and lateral step taps 1x10. 9: Step One stepper seat 12, resistance 3 x 6 minutes 10: Seated right ankle green Rep band ankle df,pf,inv and evr 3x15. Skilled Intervention: Patient was educated in proper exercise technique and purpose for exercises. Skilled judgment was provided in selection of appropriate interventions. Correct performance of therapeutic exercises was facilitated with verbal and visual cuing. Re-educated patient for best results from therapy home exercise performance is very critical for improvement. Billing: [facility]: Therapeutic Exercise ([id number]): 1:1 time: 50 minutes (3 units: 38-52 mins) Total time: 50 minutes CLAIRE Antonio PT CNTHERAPY Observed: 06/03/2017 Status: COMPLETED Source: [place] 12:30 PM [facility] REPOSITORY OT/PT/Speech Visit (PTWS) RENATO NOONAN JR. ([id number]) 1950 M Date Time Provider Department 06/03/17 12:30 PM FERNY NETTLES (DIRECTOR OF REIMBURSEMENT) PTWS Date Time Provider Department Center 06/03/2017 12:30 PM [id number], NANCY (DIRECTOR OF REIMBURSEMENT) PTWS [facility] Reason for Visit: Physical Therapy [503] Primary Visit Diagnosis:Acute pain of left shoulder [M25.512] Other Visit Diagnoses:Right ankle pain, unspecified chronicity [M25.571] Acute pain of left knee [M25.562] Allergies As of Date: 06/03/2017 Noted Allergy Reaction CODEINE 08/21/2005 8 - GI Upset DOXYCYCLINE 08/22/2007 2 - Rash LIPITOR (ATORVASTATIN CALCIUM) 02/09/2014 14 - Other: See Comments Comments: CK elevation LISINOPRIL 09/12/2008 3 - Cough PENICILLINS 11/16/2004 Comments: as a child metals [Other] 02/20/2007 2 - Rash Date Reviewed: 05/28/2017 Reviewed by: Chela Mijares Ma - Fully Assessed Prescriptions as of 06/03/2017 Sig: LEVEMIR FLEXTOUCH U-100 INSUL* INJECT 40 UNITS IN THE IN THE* SELENIUM SULFIDE 2.5 % LOTION SHAMPOO TWICE A WEEKS DIRE* ESOMEPRAZOLE MAGNESIUM 20 MG * TAKE 1 CAPSULE BY MOUTH DAILY* AMLODIPINE 10 MG TABLET TAKE 1 TABLET BY MOUTH ONCE D* GLIMEPIRIDE 2 MG TABLET TAKE 1 TABLET BY MOUTH DAILY * FLECAINIDE 150 MG TABLET TAKE 1 TABLET BY MOUTH DAILY ALLOPURINOL 300 MG TABLET TAKE 1 TABLET BY MOUTH ONCE D* LIRAGLUTIDE 0.6 MG/0.1 ML (18* Inject 1.2 mg subcutaneously * TRAMADOL 50 MG TABLET Take 1 tablet by mouth every * LANCETS TEST BLOOD SUGAR THREE TIMES * TIZANIDINE 2 MG TABLET TAKE 1 TABLET BY MOUTH EVERY * METOPROLOL TARTRATE 50 MG TAB* Take 1 tablet by mouth twice * PEN NEEDLE, DIABETIC 31 GAUGE* Use twice daily for insulin a* BLOOD-GLUCOSE METER Test blood sugar three times * MUPIROCIN 2 % TOPICAL OINTMENT APPLY TO AFFECTED AREA(S) ON * KETOCONAZOLE 2 % SHAMPOO APPLY TO AFFECTED AREA(S) ONC* TAMSULOSIN 0.4 MG CAPSULE TAKE 2 CAPSULES EVERY EVENING* OXYBUTYNIN CHLORIDE 5 MG TABL* TAKE 1 TABLET BY MOUTH TWICE * TRIAMCINOLONE ACETONIDE 0.1 %* APPLY TO AFFECTED AREA(S) THR* NITROSTAT 0.4 MG SUBLINGUAL T* DISSOLVE ONE TABLET UNDER/ON * GABAPENTIN 300 MG CAPSULE Take 1 capsule by mouth once * GABAPENTIN 600 MG TABLET Take 1 capsule by mouth once * FERROUS SULFATE 325 MG (65 MG* Take 1 tablet by mouth daily * BLOOD SUGAR DIAGNOSTIC STRIPS Test blood sugar 3-4 times da* MULTIVITAMIN TABLET Take 1 tablet by mouth once d* LEVOTHYROXINE 100 MCG TABLET Take 1 tablet by mouth once d* VOLTAREN 1 % TOPICAL GEL APPLY TO AFFECTED AREA. APPL* LEG BRACE One knee brace LANCETS test 3-5X daily - dx diabete* COMPOUNDED PRESCRIPTION Lancet Device of choice. OXCARBAZEPINE 300 MG TABLET Take 2 tablets in the AM and * ASPIRIN 81 MG TABLET,DELAYED * Take 1 tablet by mouth once d* DIVALPROEX ER 500 MG TABLET,E* Per [facility] take 1500 mg po Bid PERPHENAZINE 8 MG TABLET Take 1 tablet by mouth once d* Progress Notes: Conchis Mcdaniel PT 06/04/2017 10:05 AM Signed Episode Visit Count: 11 Therapist That Will Oversee The Plan Of Care: Conchis Mcdaniel PT Start of Care Date: 04/14/17 Onset Date: 01/12/17 Plan of Care Certification Date: 04/14/17 REHABILITATION AND SPORTS THERAPY PHYSICAL THERAPY TREATMENT NOTE ASSESSMENT: Renato Noonan Jr. demonstrated difficulty with upright posture, continual pain, and follow through with HEP. Patient was able to improve walking today with improved chuck and less shuffling after performing standing forward and lateral taps onto 6 step. The patient will continue to benefit from continued skilled physical therapy for reduction in pain, increase strength and postural strengthening. PLAN FOR NEXT VISIT: POC update: 06/05/2017. Continue to advance standing ex per patient tolerance, left shoulder , left knee and right ankle strengthening. SUBJECTIVE: Patient reports he is having a bad day today. He reports he has not been sleeping much lately. He reports he has not done exercise since last seen. Pain Score: 4/10 Pain Location: Neck;Shoulder - Left;Shoulder - Right;Knee - Left Description: Aching Frequency: Continuous Post Treatment Pain Score: 3/10 Post Treatment Pain Description: (decrease intensity of pain) OBJECTIVE MEASURES WITH LEVEL OF FUNCTION: Posture / Alignment Posture: Forward head;Rounded shoulders;Thoracic kyphosis TREATMENT: Therapeutic Exercise: 1: Green rep band left shoulder biceps and triceps strengthening 2x15. 2: Standing B heel raises 2x15. 3: Scapular retraction with emphasis on posture 2x15 4: Green Rep band scapular retraction seated 2x15 with verbal cues for proper form. 5: sit to stand from chair 1x9 and 1x8 prior to fatigue 6: Standing B toe raises 2x15. 7: Right standing gastroc stretch 2x30 seconds with verbal and visual cues for form. 8: Standing in ll bars forward step taps onto 6 step B 2x10 and lateral step taps 1x10. 9: Step One stepper seat 12, resistance 3 x 6 minutes 10: Seated right ankle green Rep band ankle df,pf,inv and evr 3x15. Skilled Intervention: Patient was educated in proper exercise technique and purpose for exercises. Skilled judgment was provided in selection of appropriate interventions.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 unit/mL (3 mL) inpn injection Inject 40 units in the am, 36 units in the pm subcutaneously. metoprolol tartrate, short acting, (LOPRESSOR) 50 mg tablet Take 1 tablet by mouth twice daily. insulin needles, DISPOSABLE, (PEN NEEDLE) 31 gauge x 5/16ANDquot; ndle Use twice daily for insulin administration. E11.8 Blood-Glucose Meter (ACCU-CHEK MICHAEL PLUS METER) [facility] [place] [place] blood sugar three times daily Dx E11.65, Insulin: yes mupirocin (BACTROBAN) 2 % ointment APPLY TO AFFECTED AREA(S) ON LEFT LEG THREE TIMES A DAY ketoconazole (NIZORAL) 2 % shampoo APPLY TO AFFECTED AREA(S) ONCE DAILY NEEDED. tamsulosin ER (FLOMAX) 0.4 mg cp24 TAKE 2 CAPSULES EVERY EVENING FOR PROSTATE oxybutynin (DITROPAN) 5 mg tablet TAKE 1 TABLET BY MOUTH TWICE A DAY FOR URINARY URGENCY triamcinolone acetonide (KENALOG) 0.1 % cream APPLY TO AFFECTED AREA(S) THREE TIMES A DAY NITROSTAT 0.4 mg SL tablet DISSOLVE ONE TABLET UNDER/ON THE TONGUE NEEDED FOR CHEST PAIN, IF NO RELIEF CALL 911 gabapentin (NEURONTIN) 300 mg capsule Take 1 capsule by mouth once daily in the PM gabapentin (NEURONTIN) 600 mg tablet Take 1 capsule by mouth once daily in the AM ferrous sulfate 325 mg (65 mg iron) tablet Take 1 tablet by mouth daily with breakfast. blood sugar diagnostic (ACCU-CHEK MICHAEL) test strip Test blood sugar 3-4 times daily. dx diabetes E11.9. Insulin - Yes multivitamin (DAILY-ERICA) tablet Take 1 tablet by mouth once daily. levothyroxine (SYNTHROID) 100 mcg tablet Take 1 tablet by mouth once daily. for thyroid VOLTAREN 1 % topical gel APPLY TO AFFECTED AREA. APPLY TO AFFECTED JOINTS THREE TIMES A DAY Leg Brace (KNEE BRACE) [facility] [place] brace Lancets (ACCU-CHEK MULTICLIX LANCET) lancets test 3-5X daily - dx diabetes -E11.9- on insulin; fluctuating blood sugars. COMPOUNDED PRESCRIPTION Lancet Device of choice. OXcarbazepine (TRILEPTAL) 300 mg tablet Take 2 tablets in the AM and 1 tablet in the PM aspirin, enteric coated (ASPIRIN, ENTERIC COATED) 81 mg EC tablet Take 1 tablet by mouth once daily. divalproex ER (DEPAKOTE ER) 500 mg 24 hr tablet Per [facility] take 1500 mg po Bid perphenazine 8 mg ORAL tablet Take 1 tablet by mouth once daily. at bedtime No current facility-administered medications on file prior to visit. Social History Social History Marital status: Single Spouse name: Years of education: Number of children: Social History Main Topics Smoking status: Never Smoker Smokeless status: Never Used Alcohol use: No Drug use: No Social History Narrative OAR[facility] report run. Tj Pichardo MD March 13, 2011 12:32 PM He reports he has a degree in Retention Science. EXAM: BP 120/70 Pulse 74 Resp 16 Wt 98 kg (216 lb) BMI 30.99 kg/m2 General Appearance: Well appearing, alert, in no acute distress, well-hydrated, well nourished.. Lungs: Lungs clear to auscultation. No wheezing, rhonchi, rales. Heart: RRR without murmur, gallop, or rubs. No ectopy. Health Maintenance List HBA1C due on 09/24/2017 URINE ALBUMIN CREATININE RATIO due on 10/10/2017 LDL due on 10/10/2017 DILATED RETINAL EXAM due on 12/20/2017 DIABETIC FOOT EXAM due on 03/21/2018 COLORECTAL CANCER SCREENING,SEE MODIFIER due on 04/13/2018 TETANUS due on 09/13/2021 PROSTATE CANCER SCREENING DISCUSSION Completed ADULT PREVNAR-13 Completed INFLUENZA Completed HEPATITIS C SCREENING Completed PNEUMOVAX AGE 65 AND OVER WITH 5YR LOOKBACK Completed Data reviewed None ASSESSMENT/PLAN: 1. Type 2 diabetes mellitus without complication, with long- term current use of insulin (HCC) - ICD9: 250.00, V58.67, ICD10: E11.9, Z79.4 (primary diagnosis) uncontrolled - Continue current medications - Check A1c 2. Acute pain of left knee - ICD9: 719.46, ICD10: M25.562 Continue with PT Do home exercises at recommended 3. Acute pain of left shoulder - ICD9: 719.41, ICD10: M25.512 Continue with PT Do home exercises at recommended 4. 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 Schizoaffective disorder, bipolar type (HCC) - ICD9: 295.70, ICD10: F25.0 Continue current medications. [facility] Follow up in 2 months Johnie Trinidad MD The documentation for this note was completed by Chela Mijares Ma acting as scribe for Johnie Trinidad MD. May 28, 2017 4:34 PM. Referring Provider: JOHNIE TRINIDAD [[id number]] Allergies As of Date: 05/28/2017 Noted Allergy Reaction CODEINE 08/21/2005 8 - GI Upset DOXYCYCLINE 08/22/2007 2 - Rash LIPITOR (ATORVASTATIN CALCIUM) 02/09/2014 14 - Other: See Comments Comments: CK elevation LISINOPRIL 09/12/2008 3 - Cough PENICILLINS 11/16/2004 Comments: as a child metals [Other] 02/20/2007 2 - Rash Date Reviewed: 05/28/2017 Reviewed by: Chela Mijares Ma - Fully Assessed Reason for Visit: F/U 1 month [1175] Primary Visit Diagnosis:Type 2 diabetes mellitus without complication, with long-term current use of insulin (HCC) [E11.9, Z79.4] Other Visit Diagnoses:Acute pain of left knee [M25.562] Acute pain of left shoulder [M25.512] 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) [E11.40, E11.65] Schizoaffective disorder, bipolar type (HCC) [F25.0] Order(s):HGB A1C [[id number]] Order #: [id number] FUTURE Prescriptions as of 05/28/2017 Sig: SELENIUM SULFIDE 2.5 % LOTION SHAMPOO TWICE A WEEKS DIRE* ESOMEPRAZOLE MAGNESIUM 20 MG * TAKE 1 CAPSULE BY MOUTH DAILY* AMLODIPINE 10 MG TABLET TAKE 1 TABLET BY MOUTH ONCE D* GLIMEPIRIDE 2 MG TABLET TAKE 1 TABLET BY MOUTH DAILY * FLECAINIDE 150 MG TABLET TAKE 1 TABLET BY MOUTH DAILY ALLOPURINOL 300 MG TABLET TAKE 1 TABLET BY MOUTH ONCE D* LIRAGLUTIDE 0.6 MG/0.1 ML (18* Inject 1.2 mg subcutaneously * TRAMADOL 50 MG TABLET Take 1 tablet by mouth every * LANCETS TEST BLOOD SUGAR THREE TIMES * TIZANIDINE 2 MG TABLET TAKE 1 TABLET BY MOUTH EVERY * INSULIN DETEMIR (U-100) 100 U* Inject 40 units in the am, 36* METOPROLOL TARTRATE 50 MG TAB* Take 1 tablet by mouth twice * PEN NEEDLE, DIABETIC 31 GAUGE* Use twice daily for insulin a* BLOOD-GLUCOSE METER Test blood sugar three times * MUPIROCIN 2 % TOPICAL OINTMENT APPLY TO AFFECTED AREA(S) ON * KETOCONAZOLE 2 % SHAMPOO APPLY TO AFFECTED AREA(S) ONC* TAMSULOSIN 0.4 MG CAPSULE TAKE 2 CAPSULES EVERY EVENING* OXYBUTYNIN CHLORIDE 5 MG TABL* TAKE 1 TABLET BY MOUTH TWICE * TRIAMCINOLONE ACETONIDE 0.1 %* APPLY TO AFFECTED AREA(S) THR* NITROSTAT 0.4 MG SUBLINGUAL T* DISSOLVE ONE TABLET UNDER/ON * GABAPENTIN 300 MG CAPSULE Take 1 capsule by mouth once * GABAPENTIN 600 MG TABLET Take 1 capsule by mouth once * FERROUS SULFATE 325 MG (65 MG* Take 1 tablet by mouth daily * BLOOD SUGAR DIAGNOSTIC STRIPS Test blood sugar 3-4 times da* MULTIVITAMIN TABLET Take 1 tablet by mouth once d* LEVOTHYROXINE 100 MCG TABLET Take 1 tablet by mouth once d* VOLTAREN 1 % TOPICAL GEL APPLY TO AFFECTED AREA. APPL* LEG BRACE One knee brace LANCETS test 3-5X daily - dx diabete* COMPOUNDED PRESCRIPTION Lancet Device of choice. OXCARBAZEPINE 300 MG TABLET Take 2 tablets in the AM and * ASPIRIN 81 MG TABLET,DELAYED * Take 1 tablet by mouth once d* DIVALPROEX ER 500 MG TABLET,E* Per [facility] take 1500 mg po Bid PERPHENAZINE 8 MG TABLET Take 1 tablet by mouth once d* Problem List As Of Date 05/28/2017 Noted Resolved LUMBAGO [M54.5] INVALID FOR* Nonallopathic lesion of thoracic region, not el*INVALID FOR*02/08/2016 Nonallopathic Lesion of Lumbar Region, not Else*INVALID FOR*04/13/2009 IDIOPATHIC SCOLIOSIS [M41.20] INVALID FOR* Sprain of lumbar region [S33.5XXA] INVALID FOR*02/08/2016 Unspecified schizophrenia, unspecified conditio* 08/31/2013 Priority: Very Severe Bipolar I disorder, most recent episode (or cur* 08/31/2013 ATRIAL FIBRILLATION [I48.91] ESOPHAGEAL REFLUX [K21.9] LUMBOSACRAL SPONDYLOSIS [M47.817] INVALID FOR* SPINAL STENOSIS-LUMBAR [M48.061] INVALID FOR* DISC DIS NEC/NOS-LUMBAR [M51.9] INVALID FOR* Other symptoms referable to back [M53.80] INVALID FOR*02/08/2016 SPONDYLOLISTHESIS [Q76.2] INVALID FOR* Pain in joint, pelvic region and thigh [M25.559]INVALID FOR*02/08/2016 CERVICAL SPONDYLOSIS [M47.812] INVALID FOR* Hyperlipidemia [E78.5] INVALID FOR* Osteoarthritis [M19.90] INVALID FOR* Pain in joint, shoulder region [M25.519] INVALID FOR*02/08/2016 PSORIASIS [L40.8] INVALID FOR* Contact Dermatitis and Other Eczema, due to Uns*INVALID FOR*04/13/2009 XEROSIS///SEBACEOUS GLAND DIS NEC [L73.8] INVALID FOR*11/11/2012 Unspecified pruritic disorder [L29.9] INVALID FOR*11/11/2012 RASH///NONSPECIF SKIN ERUPT NEC [R21] INVALID FOR*11/11/2012 ACTINIC DAMAGE///CHR SOLAR SKIN DAMAGE NOS [L57*INVALID FOR*11/11/2012 Other seborrheic keratosis [L82.1] INVALID FOR*11/11/2012 Disorders of bursae and tendons in shoulder reg*INVALID FOR*02/08/2016 Renal failure, unspecified [N19] INVALID FOR*02/08/2016 BENIGN HYPERTENSION [I10] INVALID FOR* Contact dermatitis and other eczema due to othe*INVALID FOR*11/11/2012 Dyschromia, unspecified [L81.9] INVALID FOR*11/11/2012 Other Atopic Dermatitis and Related Conditions *INVALID FOR*04/13/2009 Stable Angina [I20.8] INVALID FOR* Acute gout [M10.9] INVALID FOR*02/08/2016 More... Gout [M10.9] INVALID FOR* Renal insufficiency [N28.9] INVALID FOR*02/08/2016 Diabetes (HCC) [E11.9] INVALID FOR* Other joint derangement, not elsewhere classifi*INVALID FOR*02/08/2016 Abnormality of gait [R26.9] INVALID FOR*02/08/2016 Tendonitis [M77.9] INVALID FOR*02/08/2016 Diabetes (HCC) [E11.9] INVALID FOR*06/07/2014 BPH NOS w ur obs/LUTS [N40.1, N13.8] INVALID FOR* Allergic conjunctivitis [H10.10] INVALID FOR*02/08/2016 Arthritis of knee [M17.10] INVALID FOR* Sciatica [M54.30] INVALID FOR* Sprain and strain of unspecified site of knee a*INVALID FOR*02/08/2016 Other acne [L70.8] INVALID FOR*02/08/2016 Other seborrheic dermatitis [L21.8] INVALID FOR*02/08/2016 Stasis dermatitis [I87.2] INVALID FOR* Actinic skin damage [L57.8] INVALID FOR*02/08/2016 Hypothyroidism [E03.9] INVALID FOR* Other atopic dermatitis and related conditions *INVALID FOR* Hip arthritis [M16.10] INVALID FOR* Neuropathy [G62.9] INVALID FOR* Rash [R21] INVALID FOR* Contusion of knee [S80.00XA] INVALID FOR*02/08/2016 Type 2 diabetes, uncontrolled, with renal manif*INVALID FOR*08/09/2013 CKD (chronic kidney disease) stage 3, GFR 30-59*INVALID FOR* Uncontrolled type 2 diabetes mellitus with diab*INVALID FOR* Schizoaffective disorder, bipolar type (HCC) [F*INVALID FOR* Venous insufficiency (chronic) (peripheral) [I8*INVALID FOR* Uncontrolled type 2 diabetes with neuropathy (H*INVALID FOR* Sprain of ligaments of cervical spine [S13.4XXA]INVALID FOR* Cervicalgia [M54.2] INVALID FOR* Seborrhea [L21.9] INVALID FOR* Acute pain of left shoulder [M25.512] INVALID FOR* Acute pain of left knee [M25.562] INVALID FOR* Right ankle pain [M25.571] INVALID FOR* Disposition: Return in about 2 months (around 07/28/2017). Follow-up and Disposition History Recorded Encounter Status:Closed by JOHNIE TRINIDAD MD on 05/28/17 PROGRESS Observed: 05/27/2017 Status: COMPLETED Source: [place] 2:10 PM [facility] RE[facility]ITORY HNO ID: [id number] Author: Conchis (Pt) Jonas Service: (none) Author Type: Physical Therapist Type: Progress Notes Filed: 05/27/2017 3:19 PM Note Text: Episode Visit Count: 9 Therapist That Will Oversee The Plan Of Care: Conchis Mcdaniel PT Start of Care Date: 04/14/17 Onset Date: 01/12/17 Plan of Care Certification Date: 04/14/17 REHABILITATION AND SPORTS THERAPY PHYSICAL THERAPY TREATMENT NOTE ASSESSMENT: Renato Noonan JrTwin demonstrated difficulty with with upright posture,keeping cane in front of him with walking and difficulty with motivation toward home program. The patient will continue to benefit from continued skilled physical therapy for postural awareness and strengthening, left knee and left ankle strengthening. PLAN FOR NEXT VISIT: continue to advance postural strengthening ex, left shoulder , left knee and ankle ex. per patient tolerance. SUBJECTIVE: Patient reports B UT and left knee are hurting today. He reports he has not done any exercise since last seen in therapy. Pain Score: 7/10 Pain Location: Knee - Left Description: (aching knee and tightness B UT and left shoulder) Frequency: Continuous Post Treatment Pain Score: 3/10 Post Treatment Pain Description: (aching knee and decrease pain B UT and no c/o left ankle) OBJECTIVE MEASURES WITH LEVEL OF FUNCTION: Cognition Cognition: Attention Deficits (patient needs re-directed throughout therapy to stay on task) Posture / Alignment Posture: Forward head;Rounded shoulders;Thoracic kyphosis TREATMENT: Therapeutic Exercise: 1: Green rep band left shoulder biceps and triceps strengthening 3x10 2: Seated B heel raises x 20. 3: Scapular retraction with emphasis on posture x 20. 4: Green Rep band scapular retraction standing 2x15 with verbal cues for proper form. 5: 30 second sit to stand from chair x 14 no UE assist. 6: Seated toe raises x 20 7: Left standing gastroc stretch 2x30 seconds. 8: Hamstring Curl Machine 70# 3x10 9: Step One stepper seat 12, resistance 2 x 5 minutes 10: Seated right ankle green Rep band ankle df,pf,inv and evr 2x10. Skilled Intervention: Patient was educated in proper exercise technique and purpose for exercises. Skilled judgment was provided in selection of appropriate interventions. Correct performance of therapeutic exercises was facilitated with verbal and visual cuing. Billing: [facility]: Therapeutic Exercise (60453): 1:1 time: 45 minutes (3 units: 38-52 mins) Total time: 45 minutes CLAIRE Antonio PT CNTHERAPY Observed: 05/27/2017 Status: COMPLETED Source: [place] 1:15 PM [facility] REPOSITORY OT/PT/Speech Visit (PTWS) RENATO NOONAN JR. ([id number]) 1950 M Date Time Provider Department 05/27/17 1:15 PM FERNY NETTLES (DIRECTOR OF REIMBURSEMENT) PTWS Date Time Provider Department Center 05/27/2017 1:15 PM [id number], NANCY (DIRECTOR OF REIMBURSEMENT) PTWS [facility] Reason for Visit: Physical Therapy [503] Primary Visit Diagnosis:Acute pain of left shoulder [M25.512] Other Visit Diagnoses:Right ankle pain, unspecified chronicity [M25.571] Acute pain of left knee [M25.562] Allergies As of Date: 05/27/2017 Noted Allergy Reaction CODEINE 08/21/2005 8 - GI Upset DOXYCYCLINE 08/22/2007 2 - Rash LIPITOR (ATORVASTATIN CALCIUM) 02/09/2014 14 - Other: See Comments Comments: CK elevation LISINOPRIL 09/12/2008 3 - Cough PENICILLINS 11/16/2004 Comments: as a child metals [Other] 02/20/2007 2 - Rash Date Reviewed: 05/14/2017 Reviewed by: Terri Bocanegra Ma - Fully Assessed Prescriptions as of 05/27/2017 Sig: SELENIUM SULFIDE 2.5 % LOTION SHAMPOO TWICE A WEEKS DIRE* ESOMEPRAZOLE MAGNESIUM 20 MG * TAKE 1 CAPSULE BY MOUTH DAILY* AMLODIPINE 10 MG TABLET TAKE 1 TABLET BY MOUTH ONCE D* GLIMEPIRIDE 2 MG TABLET TAKE 1 TABLET BY MOUTH DAILY * FLECAINIDE 150 MG TABLET TAKE 1 TABLET BY MOUTH DAILY ALLOPURINOL 300 MG TABLET TAKE 1 TABLET BY MOUTH ONCE D* LIRAGLUTIDE 0.6 MG/0.1 ML (18* Inject 1.2 mg subcutaneously * TRAMADOL 50 MG TABLET Take 1 tablet by mouth every * LANCETS TEST BLOOD SUGAR THREE TIMES * TIZANIDINE 2 MG TABLET TAKE 1 TABLET BY MOUTH EVERY * INSULIN DETEMIR (U-100) 100 U* Inject 40 units in the am, 36* METOPROLOL TARTRATE 50 MG TAB* Take 1 tablet by mouth twice * PEN NEEDLE, DIABETIC 31 GAUGE* Use twice daily for insulin a* BLOOD-GLUCOSE METER Test blood sugar three times * MUPIROCIN 2 % TOPICAL OINTMENT APPLY TO AFFECTED AREA(S) ON * KETOCONAZOLE 2 % SHAMPOO APPLY TO AFFECTED AREA(S) ONC* TAMSULOSIN 0.4 MG CAPSULE TAKE 2 CAPSULES EVERY EVENING* OXYBUTYNIN CHLORIDE 5 MG TABL* TAKE 1 TABLET BY MOUTH TWICE * TRIAMCINOLONE ACETONIDE 0.1 %* APPLY TO AFFECTED AREA(S) THR* NITROSTAT 0.4 MG SUBLINGUAL T* DISSOLVE ONE TABLET UNDER/ON * GABAPENTIN 300 MG CAPSULE Take 1 capsule by mouth once * GABAPENTIN 600 MG TABLET Take 1 capsule by mouth once * FERROUS SULFATE 325 MG (65 MG* Take 1 tablet by mouth daily * BLOOD SUGAR DIAGNOSTIC STRIPS Test blood sugar 3-4 times da* MULTIVITAMIN TABLET Take 1 tablet by mouth once d* LEVOTHYROXINE 100 MCG TABLET Take 1 tablet by mouth once d* VOLTAREN 1 % TOPICAL GEL APPLY TO AFFECTED AREA. APPL* LEG BRACE One knee brace LANCETS test 3-5X daily - dx diabete* COMPOUNDED PRESCRIPTION Lancet Device of choice. OXCARBAZEPINE 300 MG TABLET Take 2 tablets in the AM and * ASPIRIN 81 MG TABLET,DELAYED * Take 1 tablet by mouth once d* DIVALPROEX ER 500 MG TABLET,E* Per [facility] take 1500 mg po Bid PERPHENAZINE 8 MG TABLET Take 1 tablet by mouth once d* Progress Notes: Conchis Mcdaniel PT 05/27/2017 3:19 PM Signed Episode Visit Count: 9 Therapist That Will Oversee The Plan Of Care: Conchis Mcdaniel PT Start of Care Date: 04/14/17 Onset Date: 01/12/17 Plan of Care Certification Date: 04/14/17 REHABILITATION AND SPORTS THERAPY PHYSICAL THERAPY TREATMENT NOTE ASSESSMENT: Renato Noonan Jr. demonstrated difficulty with with upright posture,keeping cane in front of him with walking and difficulty with motivation toward home program. The patient will continue to benefit from continued skilled physical therapy for postural awareness and strengthening, left knee and left ankle strengthening. PLAN FOR NEXT VISIT: continue to advance postural strengthening ex, left shoulder , left knee and ankle ex. per patient tolerance. SUBJECTIVE: Patient reports B UT and left knee are hurting today. He reports he has not done any exercise since last seen in therapy. Pain Score: 7/10 Pain Location: Knee - Left Description: (aching knee and tightness B UT and left shoulder) Frequency: Continuous Post Treatment Pain Score: 3/10 Post Treatment Pain Description: (aching knee and decrease pain B UT and no c/o left ankle) OBJECTIVE MEASURES WITH LEVEL OF FUNCTION: Cognition Cognition: Attention Deficits (patient needs re-directed throughout therapy to stay on task) Posture / Alignment Posture: Forward head;Rounded shoulders;Thoracic kyphosis TREATMENT: Therapeutic Exercise: 1: Green rep band left shoulder biceps and triceps strengthening 3x10 2: Seated B heel raises x 20. 3: Scapular retraction with emphasis on posture x 20. 4: Green Rep band scapular retraction standing 2x15 with verbal cues for proper form. 5: 30 second sit to stand from chair x 14 no UE assist. 6: Seated toe raises x 20 7: Left standing gastroc stretch 2x30 seconds. 8: Hamstring Curl Machine 70# 3x10 9: Step One stepper seat 12, resistance 2 x 5 minutes 10: Seated right ankle green Rep band ankle df,pf,inv and evr 2x10. Skilled Intervention: Patient was educated in proper exercise technique and purpose for exercises. Skilled judgment was provided in selection of appropriate interventions. Correct performance of therapeutic exercises was facilitated with verbal and visual cuing. Billing: [facility]: Therapeutic Exercise ([id number]): 1:1 time: 45 minutes (3 units: 38-52 mins) Total time: 45 minutes Ferny Nettles PT-Feliciano Mcdaniel PT Previous Version Follow-up and Disposition History Recorded PROGRESS Observed: 05/22/2017 Status: COMPLETED Source: [place] 12:47 PM [facility] REPOSITORY O ID: [id number] Author: Conchis (Pt) Jonas Service: (none) Author Type: Physical Therapist Type: Progress Notes Filed: 05/22/2017 1:05 PM Note Text: Episode Visit Count: 8 Therapist That Will Oversee The Plan Of Care: Conchis Mcdaniel PT Start of Care Date: 04/14/17 Onset Date: 01/12/17 Plan of Care Certification Date: 04/14/17 REHABILITATION AND SPORTS THERAPY PHYSICAL THERAPY TREATMENT NOTE ASSESSMENT: Renato Noonan Jr. demonstrated being confused today. He didn't check in and then stated he forgot to take his teeth out before drinking coffee. Patient needs to have constant cuing to stay focused on exercise and instruction to ensure performing exercises correctly with both verbal and visual cuing. Provided patient with a handout of his HEP in a list format to help him perform his exercises better. Mr. Noonan is worried about his balance. Reassured him that he has good balance based on the TUG and 30 STS tests. When he walks with his cane, he does not place the cane on the ground but carries the cane. The patient will continue to benefit from continued skilled physical therapy for R ankle ROM and strengthening, LE strengthening, L shoulder ROM and strengthening, and posture. PLAN FOR NEXT VISIT: Bicep and tricep strengthening, continue with instruction in use of therabands for R ankle, BAPS. Patient arrived and did not check in. Did not start session until 11:55am SUBJECTIVE: Patient stated he forgot he needed to check in. There was a long line, so he just sat down in waiting room. Patient stated he is feeling confused today. He said, I drank my coffee with my teeth in and that is no good as the coffee stains my teeth. Patient stated he did not do his ankle exercises. Will be seeing Dr. Patel on Friday to get his L shoulder and L knee looked at. Patient reports no falls recently. However he stated he did fall 5x in 5 weeks about 2-3 months ago. He feels he stumbles when he uses his cane. Patient did not tie his shoes correctly as he thought could do that in PT Pain Score: 6/10 Pain Location: Knee - Left Description: Aching;Sharp Frequency: Continuous Post Treatment Pain Score: 5/10 Post Treatment Pain Description: Aching OBJECTIVE MEASURES WITH LEVEL OF FUNCTION: Observation: Patient arrived with his feet stuffed into his shoes walking on the backs of his shoes and tongues of shoes stuffed inside Weight on digital mmwbg=087 lbs Sladsa=701.5 cm or 5.59 feet TREATMENT: Therapeutic Exercise: 4: 30 second sit to stand from first mat table x 17 no UE assist. 5: 30 second sit to stand from chair x 12 no UE assist. 8: Hamstring Curl Machine 60# x10 and 70# 2x10 9: Step One stepper seat 12, resistance 2 x 5 minutes 11: Standing gastroc stretch 10 sec, 3x, B (Moderate cuing for set up.) 14: Tracing A-Z with R ankle with foot on 2# weighted ball 16: Ankle pumps 2x10 20: Provided patient with his HEP list. Reviewed and answered questions how to performing marching at countertop and gastroc stretch. Skilled Intervention: Patient was educated in proper exercise technique and purpose for exercises. Skilled judgment was provided in selection of appropriate interventions. Patient education as noted. Gait Trainin: Walking with cane 30 feet x2. Patient more or less carried the cane 2: Walking without cane and SBA/supervision 30 feet x2 without difficulty Skilled Intervention: Gait belt utilized during session for safety. Skilled judgment used to assess proper use of assistive device. Verbal cues to stand tall Self-Alf Management: 1: Explained to patient not wearing his shoes correctly could cause falls 2: Got a long handled shoe horn to help patient put on shoes by keeping the back of the shoe up and slidding foot in. Tied one shoe and had patient tie his other shoe Skilled Intervention: Skilled judgment in the selection of proper modification for activity of daily living/home management based on clinical presentation, deficits, and needs. Physical assistance was provided during education for modifications and patient safety. Billing: [facility]: Therapeutic Exercise ([id number]): 1:1 time: 22 minutes (1 unit: 8-22 mins) Gait Training (70352): 1:1 time: 8 minutes (1 unit: 8-22 mins) Educ Home Mgmt (68183): 1:1 time: 15 minutes (1 unit: 8-22 mins) Total time: 45 minutes Conchis Jonas, PT CNTHERAPY Observed: 05/22/2017 Status: COMPLETED Source: [place] 11:45 AM [facility] REPOSITORY OT/PT/Speech Visit (PTWS) RENATO NOONAN JR. ([id number]) 1950 M Date Time Provider Department 05/22/17 11:45 AM CONCHIS MCDANIEL (PT) PTWS Date Time Provider Department Center 05/22/2017 11:45 AM [id number], DIANA (PT)PTWS [facility] Reason for Visit: Physical Therapy [503] Primary Visit Diagnosis:Acute pain of left shoulder [M25.512] Other Visit Diagnoses:Right ankle pain, unspecified chronicity [M25.571] Acute pain of left knee [M25.562] Allergies As of Date: 05/22/2017 Noted Allergy Reaction CODEINE 08/21/2005 8 - GI Upset DOXYCYCLINE 08/22/2007 2 - Rash LIPITOR (ATORVASTATIN CALCIUM) 02/09/2014 14 - Other: See Comments Comments: CK elevation LISINOPRIL 09/12/2008 3 - Cough PENICILLINS 11/16/2004 Comments: as a child metals [Other] 02/20/2007 2 - Rash Date Reviewed: 05/14/2017 Reviewed by: Terri Bocanegra Ma - Fully Assessed Prescriptions as of 05/22/2017 Sig: SELENIUM SULFIDE 2.5 % LOTION SHAMPOO TWICE A WEEKS DIRE* ESOMEPRAZOLE MAGNESIUM 20 MG * TAKE 1 CAPSULE BY MOUTH DAILY* AMLODIPINE 10 MG TABLET TAKE 1 TABLET BY MOUTH ONCE D* GLIMEPIRIDE 2 MG TABLET TAKE 1 TABLET BY MOUTH DAILY * FLECAINIDE 150 MG TABLET TAKE 1 TABLET BY MOUTH DAILY ALLOPURINOL 300 MG TABLET TAKE 1 TABLET BY MOUTH ONCE D* LIRAGLUTIDE 0.6 MG/0.1 ML (18* Inject 1.2 mg subcutaneously * TRAMADOL 50 MG TABLET Take 1 tablet by mouth every * LANCETS TEST BLOOD SUGAR THREE TIMES * TIZANIDINE 2 MG TABLET TAKE 1 TABLET BY MOUTH EVERY * INSULIN DETEMIR (U-100) 100 U* Inject 40 units in the am, 36* METOPROLOL TARTRATE 50 MG TAB* Take 1 tablet by mouth twice * PEN NEEDLE, DIABETIC 31 GAUGE* Use twice daily for insulin a* BLOOD-GLUCOSE METER Test blood sugar three times * MUPIROCIN 2 % TOPICAL OINTMENT APPLY TO AFFECTED AREA(S) ON * KETOCONAZOLE 2 % SHAMPOO APPLY TO AFFECTED AREA(S) ONC* TAMSULOSIN 0.4 MG CAPSULE TAKE 2 CAPSULES EVERY EVENING* OXYBUTYNIN CHLORIDE 5 MG TABL* TAKE 1 TABLET BY MOUTH TWICE * TRIAMCINOLONE ACETONIDE 0.1 %* APPLY TO AFFECTED AREA(S) THR* NITROSTAT 0.4 MG SUBLINGUAL T* DISSOLVE ONE TABLET UNDER/ON * GABAPENTIN 300 MG CAPSULE Take 1 capsule by mouth once * GABAPENTIN 600 MG TABLET Take 1 capsule by mouth once * FERROUS SULFATE 325 MG (65 MG* Take 1 tablet by mouth daily * BLOOD SUGAR DIAGNOSTIC STRIPS Test blood sugar 3-4 times da* MULTIVITAMIN TABLET Take 1 tablet by mouth once d* LEVOTHYROXINE 100 MCG TABLET Take 1 tablet by mouth once d* VOLTAREN 1 % TOPICAL GEL APPLY TO AFFECTED AREA. APPL* LEG BRACE One knee brace LANCETS test 3-5X daily - dx diabete* COMPOUNDED PRESCRIPTION Lancet Device of choice. OXCARBAZEPINE 300 MG TABLET Take 2 tablets in the AM and * ASPIRIN 81 MG TABLET,DELAYED * Take 1 tablet by mouth once d* DIVALPROEX ER 500 MG TABLET,E* Per [facility] take 1500 mg po Bid PERPHENAZINE 8 MG TABLET Take 1 tablet by mouth once d* Progress Notes: Conchis Mcdaniel PT 05/22/2017 1:05 PM Signed Episode Visit Count: 8 Therapist That Will Oversee The Plan Of Care: Conchis Mcdaniel PT Start of Care Date: 04/14/17 Onset Date: 01/12/17 Plan of Care Certification Date: 04/14/17 REHABILITATION AND SPORTS THERAPY PHYSICAL THERAPY TREATMENT NOTE ASSESSMENT: Renato Noonan Jr. demonstrated being confused today. He didn't check in and then stated he forgot to take his teeth out before drinking coffee. Patient needs to have constant cuing to stay focused on exercise and instruction to ensure performing exercises correctly with both verbal and visual cuing. Provided patient with a handout of his HEP in a list format to help him perform his exercises better. Mr. Noonan is worried about his balance. Reassured him that he has good balance based on the TUG and 30 STS tests. When he walks with his cane, he does not place the cane on the ground but carries the cane. The patient will continue to benefit from continued skilled physical therapy for R ankle ROM and strengthening, LE strengthening, L shoulder ROM and strengthening, and posture. PLAN FOR NEXT VISIT: Bicep and tricep strengthening, continue with instruction in use of therabands for R ankle, BAPS. Patient arrived and did not check in. Did not start session until 11:55am SUBJECTIVE: Patient stated he forgot he needed to check in. There was a long line, so he just sat down in waiting room. Patient stated he is feeling confused today. He said, I drank my coffee with my teeth in and that is no good as the coffee stains my teeth. Patient stated he did not do his ankle exercises. Will be seeing Dr. Patel on Friday to get his L shoulder and L knee looked at. Patient reports no falls recently. However he stated he did fall 5x in 5 weeks about 2-3 months ago. He feels he stumbles when he uses his cane. Patient did not tie his shoes correctly as he thought could do that in PT Pain Score: 6/10 Pain Location: Knee - Left Description: Aching;Sharp Frequency: Continuous Post Treatment Pain Score: 5/10 Post Treatment Pain Description: Aching OBJECTIVE MEASURES WITH LEVEL OF FUNCTION: Observation: Patient arrived with his feet stuffed into his shoes walking on the backs of his shoes and tongues of shoes stuffed inside Weight on digital vshzy=987 lbs Dfozga=590.5 cm or 5.59 feet TREATMENT: Therapeutic Exercise: 4: 30 second sit to stand from first mat table x 17 no UE assist. 5: 30 second sit to stand from chair x 12 no UE assist. 8: Hamstring Curl Machine 60# x10 and 70# 2x10 9: Step One stepper seat 12, resistance 2 x 5 minutes 11: Standing gastroc stretch 10 sec, 3x, B (Moderate cuing for set up.) 14: Tracing A-Z with R ankle with foot on 2# weighted ball 16: Ankle pumps 2x10 20: Provided patient with his HEP list. Reviewed and answered questions how to performing marching at countertop and gastroc stretch. Skilled Intervention: Patient was educated in proper exercise technique and purpose for exercises. Skilled judgment was provided in selection of appropriate interventions. Patient education as noted. Gait Trainin: Walking with cane 30 feet x2. Patient more or less carried the cane 2: Walking without cane and SBA/supervision 30 feet x2 without difficulty Skilled Intervention: Gait belt utilized during session for safety. Skilled judgment used to assess proper use of assistive device. Verbal cues to stand tall Self-Alf Management: 1: Explained to patient not wearing his shoes correctly could cause falls 2: Got a long handled shoe horn to help patient put on shoes by keeping the back of the shoe up and slidding foot in. Tied one shoe and had patient tie his other shoe Skilled Intervention: Skilled judgment in the selection of proper modification for activity of daily living/home management based on clinical presentation, deficits, and needs. Physical assistance was provided during education for modifications and patient safety. Billing: [facility]: Therapeutic Exercise (85674): 1:1 time: 22 minutes (1 unit: 8-22 mins) Gait Training (15857): 1:1 time: 8 minutes (1 unit: 8-22 mins) Educ Home Mgmt (52847): 1:1 time: 15 minutes (1 unit: 8-22 mins) Total time: 45 minutes Conchis Mcdaniel PT PROGRESS Observed: 05/15/2017 Status: COMPLETED Source: [place] 1:06 PM [facility] REPOSITORY O ID: [id number] Author: Conchis Mcdaniel Service: (none) Author Type: Physical Therapist Type: Progress Notes Filed: 05/15/2017 1:31 PM Note Text: Episode Visit Count: 7 Therapist That Will Oversee The Plan Of Care: Conchis Mcdaniel PT Start of Care Date: 04/14/17 Onset Date: 01/12/17 Plan of Care Certification Date: 04/14/17 REHABILITATION AND SPORTS THERAPY PHYSICAL THERAPY RE-EVALUATION PLAN OF CARE UPDATE: Assessment: Renato Noonan Jr. exhibits improvements in posture when max cuing to stand tall, keep gaze forward, and tuck chin. When measuring his targus to the door he was able to achieve 21cm! Patient requires redirection throughout session as he likes to go off tangent and talk. He continues to be limited with walking, physical activities, reaching behind back, reaching overhead and use hand with arm at shoulder level. He is progressing as expected towards his therapy goals as demonstrated by: documented subjective information on progress and appointment compliance. He will benefit from continued skilled therapy requiring therex to focus on L shoulder pain, L knee pain, R ankle, pain, and posture in order to improve his ADLs and walking. Functional gains: Improved postural awareness Goals updated on 05/15/17 [place] in home exercise program.--PROGRESSING Patient will increase strength of B hip and knee muscles to 5/5 to allow for normalized gait mechanics.--PROGRESSING Increase ROM of L shoulder flexion to 153 to equal R shoulder flexion.--MET Patient will report no falls.--MET Improve score on Timed Up and Go Test to 8 seconds to reflect decreased fall risk.--MET Improve score on 30 Second Chair Stand to 10 repetitions to reflect decreased fall risk.--MET Patient will improve his/her AM-PAC T-scale score by 4 points to indicate a Minimal Clincial Important Difference.(Goal: 56.39) --PROGRESSING Goals added 05/15/17 for Ankle Patient will improve R AROM to equal L to return to PLOF. Patient will improve R ankle strength to 5/5 to improve gait. G CODE REPORTING Based on clinical assessment and the score on the AM-PAC Scale Score Assessment Tool, the G code and corresponding severity modifiers are documented below. Evaluation: 04/14/2017 Current Status: Mobility: Walking and Moving Around: G8978 CK 40-59% impaired Goal Status: Mobility: Walking and Moving Around: G8979 CJ 20-39% Impaired Progress Report: 05/08/2017 Current Status: Mobility: Walking and Moving Around: G8978 CK 40-59% impaired Goal Status: Mobility: Walking and Moving Around: G8979 CJ 20-39% impaired Re-Eval: 05/15/2017 Current Status: Mobility: Walking and Moving Around: G8978 CK 40-59% impaired Goal Status: Mobility: Walking and Moving Around: G8979 CJ 20-39% impaired Planned Interventions, Frequency, and Duration: 2x/week, 8 weeks Total Number of Visits Planned: 14 Patient to be seen for Therapeutic exercise;Neuromuscular re-education;Manual therapy;Therapeutic activities;Self-long term management;Gait Training;Patient/Family/Caregiver Education;Modalities;Body Mechanics Training;Functional training;General Conditioning PLAN FOR NEXT VISIT: Bicep and tricep strengthening, continue with instruction in use of therabands for R ankle, BAPS SUBJECTIVE: Patient got an ankle brace yesterday for R ankle from Dr. Her and wore home and all day and evening. Patient stated he did not wear today because I didn't feel like it. Patient has an order for PT to evaluate his R ankle from Dr. Her. Asked patient to prioritize his problems to work on in PT: 1=L shoulder 2=L Knee 3= R Ankle 4=Posture. Pain Score: 4/10 Pain Location: (Bilateral Toes) Description: Aching (Gets R ankle pain when he twists his ankle) Frequency: Continuous Post Treatment Pain Score: 2/10 Post Treatment Pain Description: Aching;Throbbing OBJECTIVE MEASURES WITH LEVEL OF FUNCTION: LE AROM R Ankle Dorsiflexion: 10 Degrees R Ankle Plantar Flexion: 45 Degrees R Ankle Inversion: 15 R Ankle Eversion: 20 L Ankle Dorsiflexion: 20 Degrees L Ankle Plantar Flexion: 45 Degrees L Ankle Inversion: 20 L Ankle Eversion: 30 LE Strength R Ankle Dorsiflexion: 4/5 R Ankle Plantar Flexion: 4-/5 R Ankle Inversion: 4/5 R Ankle Eversion: 4-/5 L Ankle Dorsiflexion: 5/5 L Ankle Plantar Flexion: 5/5 L Ankle Inversion: 5/5 L Ankle Eversion: 5/5 Targus to wall: 21.0 cm TREATMENT: Therapeutic Exercise: 1: Posterior Shoulder rolls 2x15 3: Scapular squeezes 2x15 (max verbal and tactile cues for form.) 11: Standing gastroc stretch 10 sec, 3x, B (Moderate cuing for set up.) 12: Posture Perfect 60 sec x3 (Constant cuing to stand tall, keep gaze forward, AND chin tuck) 13: Seated R Ankle strengthening with green band 2x10 DF/PF/Inversion/Eversion 14: *Tracing A-Z with R ankle 15: Chin Tucks 2x10 (cues to keep gaze forward) 16: *Ankle pumps 2x10 Skilled Intervention: Patient was educated in proper exercise technique and purpose for exercises. Reviewed and educated patient on additions/changes for home exercise program as above (*) Skilled judgment was provided in selection of appropriate interventions. Provided written instruction for home exercise program to facilitate proper performance and compliance. Correct performance of therapeutic exercises was facilitated with max-moderate verbal, visual and tactile cuing. Billing:[facility]: Re-Evaluation ([id number]) Therapeutic Exercise (40902): 1:1 time: 38 minutes (3 units: 38-52 mins) Total time: 55 minutes Conchis Mcdaniel PT, DPT, CLT CNTHERAPY Observed: 05/15/2017 Status: COMPLETED Source: [place] 11:45 AM [facility] REPOSITORY OT/PT/Speech Visit (PTWS) RENATO NOONAN JR. ([id number]) 1950 M Date Time Provider Department 05/15/17 11:45 AM CONCHIS MCADNIEL (PT) PTWS Date Time Provider Department Center 05/15/2017 11:45 AM [id number], DIANA (PT)PTWS [facility] Reason for Visit: PT Re-eval [[id number]] Primary Visit Diagnosis:Acute pain of left shoulder [M25.512] Other Visit Diagnoses:Acute pain of left knee [M25.562] Right ankle pain, unspecified chronicity [M25.571] Allergies As of Date: 05/15/2017 Noted Allergy Reaction CODEINE 08/21/2005 8 - GI Upset DOXYCYCLINE 08/22/2007 2 - Rash LIPITOR (ATORVASTATIN CALCIUM) 02/09/2014 14 - Other: See Comments Comments: CK elevation LISINOPRIL 09/12/2008 3 - Cough PENICILLINS 11/16/2004 Comments: as a child metals [Other] 02/20/2007 2 - Rash Date Reviewed: 05/14/2017 Reviewed by: Terri Bocanegra Ma - Fully Assessed Prescriptions as of 05/15/2017 Sig: ESOMEPRAZOLE MAGNESIUM 20 MG * TAKE 1 CAPSULE BY MOUTH DAILY* AMLODIPINE 10 MG TABLET TAKE 1 TABLET BY MOUTH ONCE D* GLIMEPIRIDE 2 MG TABLET TAKE 1 TABLET BY MOUTH DAILY * FLECAINIDE 150 MG TABLET TAKE 1 TABLET BY MOUTH DAILY ALLOPURINOL 300 MG TABLET TAKE 1 TABLET BY MOUTH ONCE D* LIRAGLUTIDE 0.6 MG/0.1 ML (18* Inject 1.2 mg subcutaneously * TRAMADOL 50 MG TABLET Take 1 tablet by mouth every * LANCETS TEST BLOOD SUGAR THREE TIMES * TIZANIDINE 2 MG TABLET TAKE 1 TABLET BY MOUTH EVERY * INSULIN DETEMIR (U-100) 100 U* Inject 40 units in the am, 36* METOPROLOL TARTRATE 50 MG TAB* Take 1 tablet by mouth twice * SELENIUM SULFIDE 2.5 % LOTION SHAMPOO TWICE A WEEKS DIRE* PEN NEEDLE, DIABETIC 31 GAUGE* Use twice daily for insulin a* BLOOD-GLUCOSE METER Test blood sugar three times * MUPIROCIN 2 % TOPICAL OINTMENT APPLY TO AFFECTED AREA(S) ON * KETOCONAZOLE 2 % SHAMPOO APPLY TO AFFECTED AREA(S) ONC* TAMSULOSIN 0.4 MG CAPSULE TAKE 2 CAPSULES EVERY EVENING* OXYBUTYNIN CHLORIDE 5 MG TABL* TAKE 1 TABLET BY MOUTH TWICE * TRIAMCINOLONE ACETONIDE 0.1 %* APPLY TO AFFECTED AREA(S) THR* NITROSTAT 0.4 MG SUBLINGUAL T* DISSOLVE ONE TABLET UNDER/ON * GABAPENTIN 300 MG CAPSULE Take 1 capsule by mouth once * GABAPENTIN 600 MG TABLET Take 1 capsule by mouth once * FERROUS SULFATE 325 MG (65 MG* Take 1 tablet by mouth daily * BLOOD SUGAR DIAGNOSTIC STRIPS Test blood sugar 3-4 times da* MULTIVITAMIN TABLET Take 1 tablet by mouth once d* LEVOTHYROXINE 100 MCG TABLET Take 1 tablet by mouth once d* VOLTAREN 1 % TOPICAL GEL APPLY TO AFFECTED AREA. APPL* LEG BRACE One knee brace LANCETS test 3-5X daily - dx diabete* COMPOUNDED PRESCRIPTION Lancet Device of choice. OXCARBAZEPINE 300 MG TABLET Take 2 tablets in the AM and * ASPIRIN 81 MG TABLET,DELAYED * Take 1 tablet by mouth once d* DIVALPROEX ER 500 MG TABLET,E* Per WC take 1500 mg po Bid PERPHENAZINE 8 MG TABLET Take 1 tablet by mouth once d* Progress Notes: Conchis Mcdaniel, PT 05/15/2017 1:31 PM Signed Episode Visit Count: 7 Therapist That Will Oversee The Plan Of Care: Conchis Mcdaniel, PT Start of Care Date: 04/14/17 Onset Date: 01/12/17 Plan of Care Certification Date: 04/14/17 REHABILITATION AND SPORTS THERAPY PHYSICAL THERAPY RE-EVALUATION PLAN OF CARE UPDATE: Assessment: Renato Noonan Jr. exhibits improvements in posture when max cuing to stand tall, keep gaze forward, and tuck chin. When measuring his targus to the door he was able to achieve 21cm! Patient requires redirection throughout session as he likes to go off tangent and talk. He continues to be limited with walking, physical activities, reaching behind back, reaching overhead and use hand with arm at shoulder level. He is progressing as expected towards his therapy goals as demonstrated by: documented subjective information on progress and appointment compliance. He will benefit from continued skilled therapy requiring therex to focus on L shoulder pain, L knee pain, R ankle, pain, and posture in order to improve his ADLs and walking. Functional gains: Improved postural awareness Goals updated on 05/15/17 [place] in home exercise program.--PROGRESSING Patient will increase strength of B hip and knee muscles to 5/5 to allow for normalized gait mechanics.--PROGRESSING Increase ROM of L shoulder flexion to 153 to equal R shoulder flexion.--MET Patient will report no falls.--MET Improve score on Timed Up and Go Test to 8 seconds to reflect decreased fall risk.--MET Improve score on 30 Second Chair Stand to 10 repetitions to reflect decreased fall risk.--MET Patient will improve his/her AM-PAC T-scale score by 4 points to indicate a Minimal Clincial Important Difference.(Goal: 56.39) --PROGRESSING Goals added 05/15/17 for Ankle Patient will improve R AROM to equal L to return to PLOF. Patient will improve R ankle strength to 5/5 to improve gait. G CODE REPORTING Based on clinical assessment and the score on the AM-PAC Scale Score Assessment Tool, the G code and corresponding severity modifiers are documented below. Evaluation: 04/14/2017 Current Status: Mobility: Walking and Moving Around: G8978 CK 40-59% impaired Goal Status: Mobility: Walking and Moving Around: G8979 20-39% Impaired Progress Report: 05/08/2017 Current Status: Mobility: Walking and Moving Around: G8978 CK 40-59% impaired Goal Status: Mobility: Walking and Moving Around: G8979 20-39% impaired Re-Eval: 05/15/2017 Current Status: Mobility: Walking and Moving Around: G8978 CK 40-59% impaired Goal Status: Mobility: Walking and Moving Around: G8979 20-39% impaired Planned Interventions, Frequency, and Duration: 2x/week, 8 weeks Total Number of Visits Planned: 14 Patient to be seen for Therapeutic exercise;Neuromuscular re-education;Manual therapy;Therapeutic activities;Self-long term management;Gait Training;Patient/Family/Caregiver Education;Modalities;Body Mechanics Training;Functional training;General Conditioning PLAN FOR NEXT VISIT: Bicep and tricep strengthening, continue with instruction in use of therabands for R ankle, BAPS SUBJECTIVE: Patient got an ankle brace yesterday for R ankle from Dr. Her and wore home and all day and evening. Patient stated he did not wear today because I didn't feel like it. Patient has an order for PT to evaluate his R ankle from Dr. Her. Asked patient to prioritize his problems to work on in PT: 1=L shoulder 2=L Knee 3= R Ankle 4=Posture. Pain Score: 4/10 Pain Location: (Bilateral Toes) Description: Aching (Gets R ankle pain when he twists his ankle) Frequency: Continuous Post Treatment Pain Score: 2/10 Post Treatment Pain Description: Aching;Throbbing OBJECTIVE MEASURES WITH LEVEL OF FUNCTION: LE AROM R Ankle Dorsiflexion: 10 Degrees R Ankle Plantar Flexion: 45 Degrees R Ankle Inversion: 15 R Ankle Eversion: 20 L Ankle Dorsiflexion: 20 Degrees L Ankle Plantar Flexion: 45 Degrees L Ankle Inversion: 20 L Ankle Eversion: 30 LE Strength R Ankle Dorsiflexion: 4/5 R Ankle Plantar Flexion: 4-/5 R Ankle Inversion: 4/5 R Ankle Eversion: 4-/5 L Ankle Dorsiflexion: 5/5 L Ankle Plantar Flexion: 5/5 L Ankle Inversion: 5/5 L Ankle Eversion: 5/5 Targus to wall: 21.0 cm TREATMENT: Therapeutic Exercise: 1: Posterior Shoulder rolls 2x15 3: Scapular squeezes 2x15 (max verbal and tactile cues for form.) 11: Standing gastroc stretch 10 sec, 3x, B (Moderate cuing for set up.) 12: Posture Perfect 60 sec x3 (Constant cuing to stand tall, keep gaze forward, AND chin tuck) 13: Seated R Ankle strengthening with green band 2x10 DF/PF/Inversion/Eversion 14: *Tracing A-Z with R ankle 15: Chin Tucks 2x10 (cues to keep gaze forward) 16: *Ankle pumps 2x10 Skilled Intervention: Patient was educated in proper exercise technique and purpose for exercises. Reviewed and educated patient on additions/changes for home exercise program as above (*) Skilled judgment was provided in selection of appropriate interventions. Provided written instruction for home exercise program to facilitate proper performance and compliance. Correct performance of therapeutic exercises was facilitated with max-moderate verbal, visual and tactile cuing. Billing:[facility]: Re-Evaluation ([id number]) Therapeutic Exercise (05902): 1:1 time: 38 minutes (3 units: 38-52 mins) Total time: 55 minutes Conchis Mcdaniel, PT, DPT, CLT PROGRESS Observed: 05/14/2017 Status: COMPLETED Source: [place] 2:18 PM [facility] REPOSITORY HNO ID: [id number] Author: Jacky Her Service: (none) Author Type: Physician Type: Progress Notes Filed: 05/14/2017 2:21 PM Note Text: Follow up podiatric office visit for: Chief Complaint: This 66 year old who presents for follow up:venous leg ulcer of right lower extremity. Patient also here for follow- up right ankle instability. Patient has not been wearing any compression stockings or angie compression. He feels his wound is doing well. He does have some mild issues with ankle but he does not have significant pain. He has no other complaints. PAIN EVALUATION No data found. Hemoglobin A1C Date Value Ref Range Status 03/27/2017 8.1 (H) 4.3 - 5.6 % Final PCP: Johnie Trinidad MD PAST MEDICAL HISTORY Diagnosis Date - Acute gout 04/13/2009 Uric acid level 9.7 - Atrial fibrillation (HCC) - Backache, unspecified - Bipolar I disorder, most recent episode (or current) unspecified - Closed traumatic brain injury (HCC) Reports. - Complete rupture of rotator cuff 05/29 full thickness tear supraspinatus and subscapularis - Diabetic neuropathy (HCC) - Esophageal reflux - Internal hemorrhoids without mention of complication - Mixed hyperlipidemia Hyperlipidemia - Unspecified essential hypertension Essential hypertension - Unspecified schizophrenia, unspecified condition Current Outpatient Prescriptions: esomeprazole (NEXIUM) 20 mg capsule TAKE 1 CAPSULE BY MOUTH DAILY BEFORE BREAKFAST. 1/2 HR. BEFORE MEAL. amLODIPine (NORVASC) 10 mg tablet TAKE 1 TABLET BY MOUTH ONCE DAILY. glimepiride (AMARYL) 2 mg tablet TAKE 1 TABLET BY MOUTH DAILY WITH BREAKFAST. flecainide acetate 150 mg tablet TAKE 1 TABLET BY MOUTH DAILY allopurinol (ZYLOPRIM) 300 mg tablet TAKE 1 TABLET BY MOUTH ONCE DAILY. liraglutide (VICTOZA 2-RUBÉN) 0.6 mg/0.1 mL (18 mg/3 mL) pnij Inject 1.2 mg subcutaneously once daily. traMADol (ULTRAM) 50 mg tablet Take 1 tablet by mouth every 8 hours as needed for up to 7 days. Lancets (ACCU-CHEK MULTICLIX LANCET) lancets TEST BLOOD SUGAR THREE TIMES DAILY E11.40 tiZANidine (ZANAFLEX) 2 mg tablet TAKE 1 TABLET BY MOUTH EVERY 6 HOURS NEEDED. FOR MUSCLE SPASMS insulin detemir (LEVEMIR FLEXTOUCH) 100 unit/mL (3 mL) inpn injection Inject 40 units in the am, 36 units in the pm subcutaneously. metoprolol tartrate, short acting, (LOPRESSOR) 50 mg tablet Take 1 tablet by mouth twice daily. selenium sulfide 2.5 % lotn SHAMPOO TWICE A WEEKS DIRECTED insulin needles, DISPOSABLE, (PEN NEEDLE) 31 gauge x 5/16 ndle Use twice daily for insulin administration. E11.8 Blood-Glucose Meter (ACCU-CHEK MICHAEL PLUS METER) misc Test blood sugar three times daily Dx E11.65, Insulin: yes mupirocin (BACTROBAN) 2 % ointment APPLY TO AFFECTED AREA(S) ON LEFT LEG THREE TIMES A DAY ketoconazole (NIZORAL) 2 % shampoo APPLY TO AFFECTED AREA(S) ONCE DAILY NEEDED. tamsulosin ER (FLOMAX) 0.4 mg cp24 TAKE 2 CAPSULES EVERY EVENING FOR PROSTATE oxybutynin (DITROPAN) 5 mg tablet TAKE 1 TABLET BY MOUTH TWICE A DAY FOR URINARY URGENCY triamcinolone acetonide (KENALOG) 0.1 % cream APPLY TO AFFECTED AREA(S) THREE TIMES A DAY NITROSTAT 0.4 mg SL tablet DISSOLVE ONE TABLET UNDER/ON THE TONGUE NEEDED FOR CHEST PAIN, IF NO RELIEF CALL 911 gabapentin (NEURONTIN) 300 mg capsule Take 1 capsule by mouth once daily in the PM gabapentin (NEURONTIN) 600 mg tablet Take 1 capsule by mouth once daily in the AM ferrous sulfate 325 mg (65 mg iron) tablet Take 1 tablet by mouth daily with breakfast. blood sugar diagnostic (ACCU-CHEK MICHAEL) test strip Test blood sugar 3-4 times daily. dx diabetes E11.9. Insulin - Yes multivitamin (DAILY-ERICA) tablet Take 1 tablet by mouth once daily. levothyroxine (SYNTHROID) 100 mcg tablet Take 1 tablet by mouth once daily. for thyroid VOLTAREN 1 % topical gel APPLY TO AFFECTED AREA. APPLY TO AFFECTED JOINTS THREE TIMES A DAY Leg Brace (KNEE BRACE) [facility] [place] Lancets (ACCU-CHEK MULTICLIX LANCET) lancets test 3-5X daily - dx diabetes -E11.9- on insulin; fluctuating blood sugars. COMPOUNDED PRESCRIPTION Lancet Device of choice. OXcarbazepine (TRILEPTAL) 300 mg tablet Take 2 tablets in the AM and 1 tablet in the PM aspirin, enteric coated (ASPIRIN, ENTERIC COATED) 81 mg EC tablet Take 1 tablet by mouth once daily. divalproex ER (DEPAKOTE ER) 500 mg 24 hr tablet Per [facility] take 1500 mg po Bid perphenazine 8 mg ORAL tablet Take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 MODIFIER due on 04/13/2018 TETANUS due on 09/13/2021 PROSTATE CANCER SCREENING DISCUSSION Completed ADULT PREVNAR-13 Completed INFLUENZA Completed HEPATITIS C SCREENING Completed PNEUMOVAX AGE 65 AND OVER WITH 5YR LOOKBACK Completed Data reviewed Appointment on 03/27/2017 Protein, Total Value: 7.6(g/dL) Date: 03/27/2017 Albumin Value: 3.8(g/dL)* Date: 03/27/2017 Calcium Value: 9.6(mg/dL) Date: 03/27/2017 Bilirubin, Total Value: <0.2(mg/dL)* Date: 03/27/2017 Alkaline Phosphatase Value: 95(U/L) Date: 03/27/2017 AST Value: 27(U/L) Date: 03/27/2017 Glucose Value: 98(mg/dL) Date: 03/27/2017 BUN Value: 29(mg/dL)* Date: 03/27/2017 Creatinine Value: 1.96(mg/dL)* Date: 03/27/2017 Sodium Value: 140(mmol/L) Date: 03/27/2017 Potassium Value: 4.4(mmol/L) Date: 03/27/2017 Chloride Value: 101(mmol/L) Date: 03/27/2017 CO2 Value: 23(mmol/L) Date: 03/27/2017 Anion Gap Value: 16(mmol/L) Date: 03/27/2017 ALT Value: 33(U/L) Date: 03/27/2017 eGFR- Value: 41 Date: 03/27/2017 eGFR-All Other Races Value: 34(.) Date: 03/27/2017 Hemoglobin A1C Value: 8.1(%)* Date: 03/27/2017 Estimated Average Glucose Value: 186(mg/dL) Date: 03/27/2017 ASSESSMENT/PLAN: 1. 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 Essential hypertension, benign - ICD9: 401.1, ICD10: I10 - good control - Continue current medication(s) - Goal of BP <130/80 3. Schizoaffective disorder, bipolar type (HCC) - ICD9: 295.70, ICD10: F25.0 - Follow with Dr. Ruiz Follow up in 1 month Johnie Trinidad MD The documentation for this note was completed by Mona Feliciano Ma acting as scribe for Johnie Trinidad MD. April 28, 2017 4:41 PM. XR TIBIA FIBULA 2V Observed: 04/22/2017 Status: F Source: [place] AP/LAT RT 3:21 PM [facility] REPOSITORY * * *Final Report* * * DATE OF EXAM: Apr 22 2017 3:21PM [id number] - XR TIBIA FIBULA 2V AP/LAT RT / PROCEDURE REASON: multiple diagnoses * * * * Physician Interpretation * * * * PROCEDURE: Right tibia/fibula INDICATION: Varicose veins of right lower extremity with both ulcer of ankle and inflammation Non-pressure chronic ulcer of right ankle with unspecified severity . TECHNIQUE: XR TIBIA FIBULA 2V AP/LAT RT COMPARISON: None FINDINGS: Total knee arthroplasty appears unremarkable without evidence for loosening. No fracture. No periosteal reaction or cortical destruction to suggest osteomyelitis. No soft tissue gas or foreign body. IMPRESSION: No acute abnormality. Ring Cutter Lathe Operator: PSCB Transcribe Date/Time: Apr 22 2017 5:19P Dictated by : PRICILA MONTOYA MD This examination was interpreted and the report reviewed and electronically signed by: PRICILA MONTOYA MD on Apr 22 2017 5:20PM EST [id number] PROGRESS Observed: 04/22/2017 Status: COMPLETED Source: [place] 3:02 PM [facility] REPOSITORY HNO ID: [id number] Author: Brianne Armstrong (RtMushtaq Murguia Service: (none) Author Type: [employer] Type: Progress Notes Filed: 04/22/2017 3:21 PM Note Text: Radiology Service Progress Note PATIENT NAME: Renato Noonan Jr. DATE OF SERVICE: April 22, 2017 TIME: 3:02 PM PATIENT IDENTITY VERIFICATION COMPLETED USING TWO (2) METHODS: Patient confirmed name verbally and Date of . PATIENT GENDER DATA: Male PATIENT RELEVANT IMPLANT DATA REVIEWED: Not Applicable RADIOLOGY DEPARTMENT: General X-ray: Exam(s) Completed: Lower Extremity X-Ray(s): Tibia Fibula, Right: PERIPHERAL IV DATA: Not applicable SIGNED BY: RT Jessica April 22, 2017 3:02 PM PROGRESS Observed: 04/22/2017 Status: COMPLETED Source: [place] 2:37 PM [facility] REPOSITORY HNO ID: [id number] Author: Conchis WilsonPt) Jonas Service: (none) Author Type: Physical Therapist Type: Progress Notes Filed: 04/22/2017 3:01 PM Note Text: Episode Visit Count: 3 Therapist That Will Oversee The Plan Of Care: Conchis Mcdaniel PT Start of Care Date: 04/14/17 Onset Date: 01/12/17 Plan of Care Certification Date: 04/14/17 [facility] PHYSICAL THERAPY TREATMENT NOTE ASSESSMENT: Renato Noonan Jr. demonstrated difficulty with staying focussed on exercise. He has an improvement in reduction of pain B shoulders and knees. New c/o toe pain from being in the cold shoveling snow. Patient's knee pain abolished with treatment, toe pain decreased, and no shoulder pain today. The patient will continue to benefit from continued skilled physical therapy for advancement of exercise for shoulders and B lower extremities. PLAN FOR NEXT VISIT: Continue with shoulder and B LE ex. Possibly add standing hip ex next visit. SUBJECTIVE: Patient reports the exerccises are helping with his shoulder pain and has minimal pain currently. He has no c/o knee pain today. Toes on both feet are bothering his from shoveling snow today and the toes got cold. Pain Score: 5/10 Pain Location: Foot - Left;Ankle - Right;Shoulder - Left (1/10 left shoulder) Description: Aching;Other: See comment (toes from shoveling snow and toes got cold.) Frequency: Intermittent Post Treatment Pain Score: 04/02 Post Treatment Pain Description: (Minimal pain toes, no left knee pain) OBJECTIVE MEASURES WITH LEVEL OF FUNCTION: Fatigue noted Right > Left shoulder with newly added ABC exercise. TREATMENT: Therapeutic Exercise: 1: Posterior Shoulder rolls 2x12 2: Upright seated posture with isometric abdominals 2 second hold x 5. Improved upright posture today. 3: Scapular squeezes 2x12 4: Repetitive sit to stand from chair with UE assist x 10. 5: 30 second sit to stand from chair x 11 no UE assist. 6: Seated hip abduction blue band 3x12 each. 7: Shoulder pete left flexion and abduction 2x10. 8: B forward step ups onto 8 step 2x 10 each. 9: Step One stepper seat 12, resistance 2.5 x 6 minutes. Spoke with patient regarding ex during this time. 10: Doorway ABC's right A-M and left A-Z. 11: Standing scapular retraction with ER of shoulders with yellow Rep band 2x10. Skilled Intervention: Patient was educated in proper exercise technique and purpose for exercises. Skilled judgment was provided in selection of appropriate interventions. Correct performance of therapeutic exercises was facilitated with verbal and visual cuing. Billing: [facility]: Therapeutic Exercise (52452): 1:1 time: 45 minutes (3 units: 38-52 mins) Total time: 45 minutes Ferny Nettles, PT-A Conchis Mcdaniel PT PROGRESS Observed: 04/22/2017 Status: COMPLETED Source: [place] 2:29 PM [facility] REPOSITORY HNO ID: [id number] Author: Denny Reid Service: (none) Author Type: Physician Type: Progress Notes Filed: 04/22/2017 2:57 PM Note Text: PERTINENT CARDIAC HISTORY Atrial fib - declined warfarin Chest pain HTN HL - elevated CK DM ADHERENCE TO GUIDELINES ANGIE-I or ARB for HF with prior LVEF<40 (NQF 0081) - N/A ASA or Plavix for ASHD (NQF 0067) - met Beta summer for ASHD with prior [place] or prior LVEF<40 (NQF 0070) - N/A Beta summer for HF with prior LVEF<40 (NQF 0083) - N/A ANGIE-I or ARB for ASHD with DM or prior LVEF<40 (NQF 0066) - met Statin therapy for ASHD or FHL or DM - intolerant, elevated CK BMI documented and plan if >25 (NQF 0421) - lifestyle recommendation form Tobacco use screening and referral (NQ 0028) - lifestyle recommendation form Recommendation for whole food, plant based diet - lifestyle recommendation form CLINICAL IMPRESSION/PLAN: Renato Noonan Jr. has stable atrial fibrillation. He is tolerating flecainide well. There is no evidence of toxicity. This dose will be maintained. He has been advised to continue his small dose of metoprolol. His chest pain pattern is stable and atypical for ischemia. I've asked him to call if he has increased symptoms. He will continue his current cardiac medications. I will see him in 8 months or as needed. Written and verbal health teaching given to patient, patient verbalizes understanding and agrees with treatment plan. This note was generated using [employer] voice recognition system, and there may be some incorrect words, spellings, and punctuation that were not noted in checking the note before saving. DIAGNOSIS FOR VISIT: PAF Hypertension HISTORY OF PRESENT ILLNESS Renato Noonan Jr. returns for follow-up of his atrial fibrillation, hypertension and atypical chest pain. His emotional lability is rather marked today. He intermittently laughs and cries. He is distressed about a diagnosis of Alzheimer's. He has had occasional sharp chest pains which are very brief and unrelated to activity. He also notes occasional palpitations. He denies orthopnea. He's had minimal edema. He is undergoing some procedures for venous insufficiency and ankle instability. He's had no TIAs, amaurosis or claudication. He reports that he has been falling. His gait is becoming unstable. He has had a few episodes of low blood sugar. ALLERGIES: ALLERGIES Allergen Reactions - Codeine GI Upset - Doxycycline Rash - Lipitor [Atorvastat* Other: See Comments CK elevation - Lisinopril Cough - Penicillins as a child - Metals [Other] Rash CURRENT OUTPATIENT MEDICATIONS: sulfamethoxazole-trimethoprim (BACTRIM DS) 800-160 mg per tablet Take 1 tablet by mouth twice daily for 7 days. traMADol (ULTRAM) 50 mg tablet Take 1 tablet by mouth every 8 hours as needed for up to 7 days. Lancets (ACCU-CHEK MULTICLIX LANCET) lancets TEST BLOOD SUGAR THREE TIMES DAILY E11.40 tiZANidine (ZANAFLEX) 2 mg tablet TAKE 1 TABLET BY MOUTH EVERY 6 HOURS NEEDED. FOR MUSCLE SPASMS insulin detemir (LEVEMIR FLEXTOUCH) 100 unit/mL (3 mL) inpn injection Inject 40 units in the am, 36 units in the pm subcutaneously. metoprolol tartrate, short acting, (LOPRESSOR) 50 mg tablet Take 1 tablet by mouth twice daily. traMADol (ULTRAM) 50 mg tablet TAKE 1 TABLET BY MOUTH THREE TIMES A DAY NEEDED selenium sulfide 2.5 % lotn SHAMPOO TWICE A WEEKS DIRECTED insulin needles, DISPOSABLE, (PEN NEEDLE) 31 gauge x 5/16 ndle Use twice daily for insulin administration. E11.8 Blood-Glucose Meter (ACCU-CHEK MICHAEL PLUS METER) misc Test blood sugar three times daily Dx E11.65, Insulin: yes magnesium hydroxide (MILK OF MAGNESIA) 400 mg/5 mL suspension Take 15 mL by mouth once daily as needed for Constipation. mupirocin (BACTROBAN) 2 % ointment APPLY TO AFFECTED AREA(S) ON LEFT LEG THREE TIMES A DAY ketoconazole (NIZORAL) 2 % shampoo APPLY TO AFFECTED AREA(S) ONCE DAILY NEEDED. tamsulosin ER (FLOMAX) 0.4 mg cp24 TAKE 2 CAPSULES EVERY EVENING FOR PROSTATE oxybutynin (DITROPAN) 5 mg tablet TAKE 1 TABLET BY MOUTH TWICE A DAY FOR URINARY URGENCY triamcinolone acetonide (KENALOG) 0.1 % cream APPLY TO AFFECTED AREA(S) THREE TIMES A DAY NITROSTAT 0.4 mg SL tablet DISSOLVE ONE TABLET UNDER/ON THE TONGUE NEEDED FOR CHEST PAIN, IF NO RELIEF CALL 911 TRULICITY 0.75 mg/0.5 mL pnij INJECT 1 DOSE SUBCUTANEOUSLY EACH WEEK (DISCARD PEN AFTER) glimepiride (AMARYL) 2 mg tablet TAKE 1 TABLET BY MOUTH DAILY WITH BREAKFAST. amLODIPine (NORVASC) 10 mg tablet TAKE 1 TABLET BY MOUTH ONCE DAILY. gabapentin (NEURONTIN) 300 mg capsule Take 1 capsule by mouth once daily in the PM gabapentin (NEURONTIN) 600 mg tablet Take 1 capsule by mouth once daily in the AM esomeprazole (NEXIUM) 20 mg capsule TAKE 1 CAPSULE BY MOUTH DAILY BEFORE BREAKFAST. 1/2 HR. BEFORE MEAL. ferrous sulfate 325 mg (65 mg iron) tablet Take 1 tablet by mouth daily with breakfast. blood sugar diagnostic (ACCU-CHEK MICHAEL) test strip Test blood sugar 3-4 times daily. dx diabetes E11.9. Insulin - Yes multivitamin (DAILY-ERICA) tablet Take 1 tablet by mouth once daily. fluticasone (FLONASE) 50 mcg/actuation nasal spray Use 2 Sprays in each nostril once daily. Rinse mouth after use. levothyroxine (SYNTHROID) 100 mcg tablet Take 1 tablet by mouth once daily. for thyroid flecainide acetate 150 mg tablet 150 mg daily allopurinol (ZYLOPRIM) 300 mg tablet Take 1 tablet by mouth once daily. Betamethasone Dipropionate 0.05 % lotion Small amount to affected areas BID for itch: NOT FOR (AVOID): face, eyes, underarms, groin, genitalia. VOLTAREN 1 % topical gel APPLY TO AFFECTED AREA. APPLY TO AFFECTED JOINTS THREE TIMES A DAY polyethylene glycol 3350 (MIRALAX) 17 gram/dose powder Use as directed prn constipation. Leg Brace (KNEE BRACE) [facility] [place] Lancets (ACCU-CHEK MULTICLIX LANCET) lancets test 3-5X daily - dx diabetes -E11.9- on insulin; fluctuating blood sugars. COMPOUNDED PRESCRIPTION Lancet Device of choice. salicylic acid (SELSUN BLUE NATURALS) 3 % sham Apply 1 application to affected area once daily. clotrimazole-betamethasone (LOTRISONE) cream Apply to rash twice a day OXcarbazepine (TRILEPTAL) 300 mg tablet Take 2 tablets in the AM and 1 tablet in the PM Clindamycin Phosphate (CLEOCIN T) 1 % swab Swab the pimples or pustules twice per day when needed aspirin, enteric coated (ASPIRIN, ENTERIC COATED) 81 mg EC tablet Take 1 tablet by mouth once daily. divalproex ER (DEPAKOTE ER) 500 mg 24 hr tablet Per [facility] take 1500 mg po Bid perphenazine 8 mg ORAL tablet Take 1 tablet by mouth once daily. at bedtime PHYSICAL EXAMINATION: VITAL SIGNS: BP 130/72 Pulse 68 Ht 5' 10 (1.78m) Wt 216 lb 4.8 oz (98.1kg) BMI 31.04 kg/(m2). Chest: Clear to percussion and auscultation. Trachea is midline. Air entry is equal. Cardiac: Regular rhythm. S1 and S2 are normal. PMI is nondisplaced. There is a soft systolic ejection murmur. Carotids are brisk without bruits. JVP is less than 10 cm. Abdomen: Soft and nontender. There are no pulsatile masses or bruits. No liver enlargement. Bowel sounds are active. Extremities: Trace edema. Pulses are intact and symmetrical. Recent labs were reviewed. Renal function is moderately impaired, but improved. LDL was 89. TSH is normal. EKG shows sinus rhythm with first degree AV block. There are nonspecific repolarization changes. No change is seen since 06/01/15. Electronically Signed: Denny Reid MD April 22, 2017 2:29 PM CC: Johnie Trinidad MD PROGRESS Observed: 04/22/2017 Status: COMPLETED Source: [place] 2:21 PM [facility] REPOSITORY HNO ID: [id number] Author: Prema Mayo RN Service: (none) Author Type: (none) Type: Progress Notes Filed: 04/22/2017 2:22 PM Note Text: Profore (multi-layer venous wound compression) applied to RLE. CNOV Observed: 04/22/2017 Status: COMPLETED Source: [place] 1:30 PM [facility] OTHER CAMPUS REPOSITORY Office Visit (AGCARDWST) RENATO NOONAN JR. ([id number]) 1950 M Date Time Provider Department 04/22/17 1:30 PM DENNY REID During your visit today, we recorded the following information about you: Pulse Blood pressure Weight Height 68/minute 130/72 98.1 kg 1.778 m Denny Reid MD 04/22/2017 2:57 PM Signed PERTINENT CARDIAC HISTORY Atrial fib - declined warfarin Chest pain HTN HL - elevated CK DM ADHERENCE TO GUIDELINES ANGIE-I or ARB for HF with prior LVEFANDlt;40 (NQF 0081) - N/A ASA or Plavix for ASHD (NQF 0067) - met Beta summer for ASHD with prior [place] or prior LVEFANDlt;40 (NQF 0070) - N/A Beta summer for HF with prior LVEFANDlt;40 (NQF 0083) - N/A ANGIE-I or ARB for ASHD with DM or prior LVEFANDlt;40 (NQF 0066) - met Statin therapy for ASHD or FHL or DM - intolerant, elevated CK BMI documented and plan if ANDgt;25 (NQF 0421) - lifestyle recommendation form Tobacco use screening and referral (NQF 0028) - lifestyle recommendation form Recommendation for whole food, plant based diet - lifestyle recommendation form CLINICAL IMPRESSION/PLAN: Renato Noonan Jr. has stable atrial fibrillation. He is tolerating flecainide well. There is no evidence of toxicity. This dose will be maintained. He has been advised to continue his small dose of metoprolol. His chest pain pattern is stable and atypical for ischemia. I've asked him to call if he has increased symptoms. He will continue his current cardiac medications. I will see him in 8 months or as needed. Written and verbal health teaching given to patient, patient verbalizes understanding and agrees with treatment plan. This note was generated using [employer] voice recognition system, and there may be some incorrect words, spellings, and punctuation that were not noted in checking the note before saving. DIAGNOSIS FOR VISIT: PAF Hypertension HISTORY OF PRESENT ILLNESS Renato Noonan Jr. returns for follow-up of his atrial fibrillation, hypertension and atypical chest pain. His emotional lability is rather marked today. He intermittently laughs and cries. He is distressed about a diagnosis of Alzheimer's. He has had occasional sharp chest pains which are very brief and unrelated to activity. He also notes occasional palpitations. He denies orthopnea. He's had minimal edema. He is undergoing some procedures for venous insufficiency and ankle instability. He's had no TIAs, amaurosis or claudication. He reports that he has been falling. His gait is becoming unstable. He has had a few episodes of low blood sugar. ALLERGIES: ALLERGIES Allergen Reactions - Codeine GI Upset - Doxycycline Rash - Lipitor [Atorvastat* Other: See Comments CK elevation - Lisinopril Cough - Penicillins as a child - Metals [Other] Rash CURRENT OUTPATIENT MEDICATIONS: sulfamethoxazole-trimethoprim (BACTRIM DS) 800-160 mg per tablet Take 1 tablet by mouth twice daily for 7 days. traMADol (ULTRAM) 50 mg tablet Take 1 tablet by mouth every 8 hours as needed for up to 7 days. Lancets (ACCU-CHEK MULTICLIX LANCET) lancets TEST BLOOD SUGAR THREE TIMES DAILY E11.40 tiZANidine (ZANAFLEX) 2 mg tablet TAKE 1 TABLET BY MOUTH EVERY 6 HOURS NEEDED. FOR MUSCLE SPASMS insulin detemir (LEVEMIR FLEXTOUCH) 100 unit/mL (3 mL) inpn injection Inject 40 units in the am, 36 units in the pm subcutaneously. metoprolol tartrate, short acting, (LOPRESSOR) 50 mg tablet Take 1 tablet by mouth twice daily. traMADol (ULTRAM) 50 mg tablet TAKE 1 TABLET BY MOUTH THREE TIMES A DAY NEEDED selenium sulfide 2.5 % lotn SHAMPOO TWICE A WEEKS DIRECTED insulin needles, DISPOSABLE, (PEN NEEDLE) 31 gauge x 5/16ANDquot; ndle Use twice daily for insulin administration. E11.8 Blood-Glucose Meter (ACCU-CHEK MICHAEL PLUS METER) misc Test blood sugar three times daily Dx E11.65, Insulin: yes magnesium hydroxide (MILK OF MAGNESIA) 400 mg/5 mL suspension Take 15 mL by mouth once daily as needed for Constipation. mupirocin (BACTROBAN) 2 % ointment APPLY TO AFFECTED AREA(S) ON LEFT LEG THREE TIMES A DAY ketoconazole (NIZORAL) 2 % shampoo APPLY TO AFFECTED AREA(S) ONCE DAILY NEEDED. tamsulosin ER (FLOMAX) 0.4 mg cp24 TAKE 2 CAPSULES EVERY EVENING FOR PROSTATE oxybutynin (DITROPAN) 5 mg tablet TAKE 1 TABLET BY MOUTH TWICE A DAY FOR URINARY URGENCY triamcinolone acetonide (KENALOG) 0.1 % cream APPLY TO AFFECTED AREA(S) THREE TIMES A DAY NITROSTAT 0.4 mg SL tablet DISSOLVE ONE TABLET UNDER/ON THE TONGUE NEEDED FOR CHEST PAIN, IF NO RELIEF CALL 911 TRULICITY 0.75 mg/0.5 mL pnij INJECT 1 DOSE SUBCUTANEOUSLY EACH WEEK (DISCARD PEN AFTER) glimepiride (AMARYL) 2 mg tablet TAKE 1 TABLET BY MOUTH DAILY WITH BREAKFAST. amLODIPine (NORVASC) 10 mg tablet TAKE 1 TABLET BY MOUTH ONCE DAILY. gabapentin (NEURONTIN) 300 mg capsule Take 1 capsule by mouth once daily in the PM gabapentin (NEURONTIN) 600 mg tablet Take 1 capsule by mouth once daily in the AM esomeprazole (NEXIUM) 20 mg capsule TAKE 1 CAPSULE BY MOUTH DAILY BEFORE BREAKFAST. 1/2 HR. BEFORE MEAL. ferrous sulfate 325 mg (65 mg iron) tablet Take 1 tablet by mouth daily with breakfast. blood sugar diagnostic (ACCU-CHEK MICHAEL) test strip Test blood sugar 3-4 times daily. dx diabetes E11.9. Insulin - Yes multivitamin (DAILY-ERICA) tablet Take 1 tablet by mouth once daily. fluticasone (FLONASE) 50 mcg/actuation nasal spray Use 2 Sprays in each nostril once daily. Rinse mouth after use. levothyroxine (SYNTHROID) 100 mcg tablet Take 1 tablet by mouth once daily. for thyroid flecainide acetate 150 mg tablet 150 mg daily allopurinol (ZYLOPRIM) 300 mg tablet Take 1 tablet by mouth once daily. Betamethasone Dipropionate 0.05 % lotion Small amount to affected areas BID for itch: NOT FOR (AVOID): face, eyes, underarms, groin, genitalia. VOLTAREN 1 % topical gel APPLY TO AFFECTED AREA. APPLY TO AFFECTED JOINTS THREE TIMES A DAY polyethylene glycol 3350 (MIRALAX) 17 gram/dose powder Use as directed prn constipation. Leg Brace (KNEE BRACE) misc One knee brace Lancets (ACCU-CHEK MULTICLIX LANCET) lancets test 3-5X daily - dx diabetes -E11.9- on insulin; fluctuating blood sugars. COMPOUNDED PRESCRIPTION Lancet Device of choice. salicylic acid (SELSUN BLUE NATURALS) 3 % sham Apply 1 application to affected area once daily. clotrimazole-betamethasone (LOTRISONE) cream Apply to rash twice a day OXcarbazepine (TRILEPTAL) 300 mg tablet Take 2 tablets in the AM and 1 tablet in the PM Clindamycin Phosphate (CLEOCIN T) 1 % swab Swab the pimples or pustules twice per day when needed aspirin, enteric coated (ASPIRIN, ENTERIC COATED) 81 mg EC tablet Take 1 tablet by mouth once daily. divalproex ER (DEPAKOTE ER) 500 mg 24 hr tablet Per [facility] take 1500 mg po Bid perphenazine 8 mg ORAL tablet Take 1 tablet by mouth once daily. at bedtime PHYSICAL EXAMINATION: VITAL SIGNS: BP 130/72 Pulse 68 Ht 5' 10ANDquot; (1.78m) Wt 216 lb 4.8 oz (98.1kg) BMI 31.04 kg/(m2). Chest: Clear to percussion and auscultation. Trachea is midline. Air entry is equal. Cardiac: Regular rhythm. S1 and S2 are normal. PMI is nondisplaced. There is a soft systolic ejection murmur. Carotids are brisk without bruits. JVP is less than 10 cm. Abdomen: Soft and nontender. There are no pulsatile masses or bruits. No liver enlargement. Bowel sounds are active. Extremities: Trace edema. Pulses are intact and symmetrical. Recent labs were reviewed. Renal function is moderately impaired, but improved. LDL was 89. TSH is normal. EKG shows sinus rhythm with first degree AV block. There are nonspecific repolarization changes. No change is seen since 06/01/15. Electronically Signed: Denny Reid MD April 22, 2017 2:29 PM CC: MD Denny Crews MD 04/22/2017 2:30 PM Signed LIFESTYLE CHANGE A healthy lifestyle is the most important component of your overall treatment plan. Please give serious thought to the following areas and commit to making manager long term care changes. EAT A WHOLE FOOD, PLANT BASED DIET The nutrition your body gets is more important than the medicine you take. What matters most is the overall way you eat. We encourage you to minimize the use of animal products (which include dairy and all meats except fatty fish) and use whole, unprocessed plant foods to provide your protein, vitamins and other nutrients. We have a lot of information to share with you on this topic. We also hold Shared Medical Appointments, where you can come visit with Dr. Reid in the company of other patients and spend over an hour talking about the challenges of changing the way you eat. This is not a ANDquot;dietANDquot;. It is a way of life that you will keep with you. EXERCISE REGULARLY It is not important to spend hours in the gym, lifting weights and perspiring heavily. A total of 2-3 hours per week of aerobic (causing you to be moderately short of breath) exercise is sufficient to improve your health. Talk to us before you begin a new exercise program, if you have heart disease or experience shortness of breath or chest pain. REDUCE STRESS Chronic emotional and physical stress leads to disease. Ways of reducing stress include meditation, visualization, prayer, yoga and other forms of relaxation therapy. Consistency is the galicia. Find a technique that works for you and do it every day. CULTIVATE RELATIONSHIPS Loneliness and isolation have a major negative impact on health. Seek out others who can love, care for and nurture you. Avoid hurtful relationships. MAINTAIN IDEAL BODY WEIGHT The best way to do this is to do all the things above. Our bodies naturally find the right weight if we keep moving and feed ourselves the right food. If your BMI is greater than 25, we strongly recommend a referral to a weight management program. Please speak to us or your family physician about available programs. AVOID NICOTINE IN ALL FORMS This includes all tobacco products, whether chewed, smoked, vaped, or rubbed on the skin. Smoking cessation programs, which can make use of tobacco substitutes, medications to suppress cravings and behavior management, are available. Please contact your family physician about programs in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 to right with this today. 3: Scapular squeezes 2x10 4: Repetitive sit to stand from chair with UE assist x 12. 5: Sit to stand from chair x 10 with no UE assist. 6: *Seated hip abduction green band and blue band 1x10 each. Vended patient blue band for this ex at home. 7: Shoulder pete left flexion and abduction 1x10. 8: B forward step ups onto 6 step x 10 each. Skilled Intervention: Patient was educated in proper exercise technique and purpose for exercises. Reviewed and educated patient on additions/changes for home exercise program as above (*)Vended blue band for home use. Skilled judgment was provided in selection of appropriate interventions. Provided written instruction for home exercise program to facilitate proper performance and compliance. Correct performance of therapeutic exercises was facilitated with verbal and visual cuing. Billing: [facility]: Therapeutic Exercise ([id number]): 1:1 time: 38 minutes (3 units: 38-52 mins) Total time: 38 minutes Ferny Nettles, PT-Feliciano Mcdaniel, PT, DPT, CLT Previous Version Follow-up and Disposition History Recorded ALLERGIES ALLERGIES DATE TYPE / CODE NAME / CODE REACTION SEVERITY SOURCE Drug Penicillins/F0010 Unknown Unknown [place] Allergy/[id number]( 95934(RXNORM) [facility] Rep[facility] Drug codeine/[id number] Upset Stomach Unknown [place] 8 Allergy/041365439( 0(RXNORM) [facility] Rep[facility] Drug doxycycline/F0060 Other Unknown [place] 8 Allergy/058869623( 82108(RXNORM) [facility] Drug atorvastatin/F006 Unknown Unknown [place] 8 Allergy/056817119( 581103(RXNORM) [facility] SNOMED CT) Hospital Repository Miscellaneous LYCOPEEN Other Unknown [place] 8 Allergy/[id number]( [facility] Repository Drug lisinopril/[id number] Unknown Unknown [place] 8 Allergy/282184333( 0658(RXNORM) [facility] SNOMED CT) Hospital Repository Drug nickel/[id number] Rash Unknown [place] 8 Allergy/912002479( (RXNORM) Community SNOMED [facility]) Hospital Repository Miscellaneous 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 Rash Unknown [place] 8 Allergy/[id number]( Community SNOMED CT) Hospital Repository DRUG ATORVASTATIN OTHER: SEE Sandra [place] 4 INGREDI/078175809( CALCIUM Clinic Main SNOMED CT) [place] Repository DRUG LISINOPRIL COUGH [place] 9 INGREDI/855923727( Clinic Main SNOMED CT) [place] Repository DRUG DOXYCYCLINE RASH [place] 8 INGREDI/871151034( Clinic Main SNOMED CT) [place] Repository Miscellaneous OTHER RASH [place] 7 Allergy/516898453( Clinic Main SNOMED CT) [place] Repository DRUG CODEINE GI UPSET [place] 6 INGREDI/544729330( Clinic Main SNOMED CT) [place] Repository Drug PENICILLINS [place] 5 Class/087182179(SN Clinic Main OMED CT) [place] Repository NG/206028172(SNOME CODEINE [facility] Repository NG/992832358(SNOME DOXYCYCLINE [facility] Repository NG/139234617(SNOME ATORVASTATIN [facility]) CALCIUM [facility] Repository NG/197487718(SNOME LISINOPRIL [facility]) [facility] Repository NG/041826041(SNOME PENICILLINS [facility] Repository NG/296360939(SNOME OTHER [facility]) [facility] Repository ENCOUNTERS ENCOUNTERS ADMIT/DISCHARGE ACCOUNT NUMBER ADMITTING ENCOUNTER LOCATION SOURCE CLASS 04/04/2018/04/06/19 [id number] Ambulatory [address] Repository 03/29/2018/03/30/19 [id number] Ambulatory [address] Repository 03/09/2018 [id number] Ambulatory BMSBuilding: [facility] Repository 03/09/2018 [id number] Ambulatory [facility] ding:[facility] Repository 02/26/2018/02/27/20 [id number] Ambulatory [address] Repository 02/26/2018/02/28/20 [id number] Ambulatory [address] Repository 02/10/2018/02/14/20 [id number] Ambulatory [address] Repository 01/23/2018/01/24/20 [id number] Ambulatory [address] Repository 01/23/2018/01/24/20 [id number] Ambulatory [address] Repository 01/22/2018/01/23/20 [id number] Ambulatory [address] Repository 01/21/2018/01/23/20 [id number] Ambulatory [address] Repository 01/15/2018/02/24/20 [id number] Ambulatory [address] ding:CCN Repository 01/05/2018/01/07/20 [id number] Ambulatory [address] Repository 01/02/2018 [id number] Ambulatory BMSBuilding: [facility] Repository 01/01/2018/01/03/[id number] [place] Ambulatory [address] ding:PCURoom Repository : [id number]: 1 01/01/[id number] [place] Ambulatory BMSBuilding: [place] BMS.[facility] Repository 01/01/[id number] [place] Ambulatory BMSBuilding: [place] BMS.[facility] Repository 01/01/2018 [id number] Ambulatory BMSBuilding: [facility] Repository 12/22/2017 [id number] Ambulatory [facility] MEDICAL Repository CENTERBuildi ng:CAGWS 12/18/2017/12/20/19 [id number] Ambulatory [address] Repository 12/13/2017/12/16/19 [id number] Ambulatory [address] Repository 12/08/2017 [id number] Ambulatory [facility] ding:CVS Repository 12/08/2017 [id number] Ambulatory BMSBuilding: [place] [facility] Repository 12/08/2017 [id number] Ambulatory [facility] ding:LAB Repository 12/05/2017 [id number] Ambulatory BMSBuilding: [place] [facility]MS.[facility] Repository 12/04/2017/12/05/19 [id number] Ambulatory BMSBuilding: [place] 18 BMS.[facility] Repository 11/29/2017/12/02/19 [id number] Ambulatory [address] Repository 11/26/2017/11/28/19 [id number] Ambulatory [address] Repository 11/25/2017/11/26/19 [id number] Emergency [place] ding:ED Repository 11/19/2017/11/22/19 [id number] White, Samantha Inpatient [place] [address] Encounter [facility] ding:PCURoom Repository : [id number]: 1 11/19/2017 [id number] White, Samantha Ambulatory BMSBuilding: [place] BMS.[facility] Repository 11/19/2017 [id number] White, Samantha Ambulatory BMSBuilding: [place] BMS.[facility] Repository 11/19/2017 [id number] White, Samantha Ambulatory BMSBuilding: [place] BMS.[facility] Repository 11/19/2017 [id number] White, Samantha Ambulatory BMSBuilding: [place] BMS.[facility] Repository 11/19/2017 [id number] White, Samantha Ambulatory BMSBuilding: [place] BMS.[facility] Repository 11/19/2017 [id number] [place]ke[place], Ambulatory BMSBuilding: [place] Chito BMS.[facility] Repository 11/18/2017/11/20/19 [id number] Ambulatory [address] Repository 11/14/2017/11/18/19 [id number] Ambulatory [address] Repository 11/07/2017/11/12/19 [id number] Ambulatory [address] Repository 11/05/2017/11/06/19 [id number] Ambulatory [address] Repository 11/03/2017/11/05/19 [id number] Ambulatory [address] Repository 10/31/2017/11/01/19 [id number] Ambulatory [address] Repository 10/31/2017/11/01/19 [id number] Ambulatory [address] Repository 10/31/2017/11/04/19 [id number] Ambulatory [address] Repository 10/22/2017/10/25/19 [id number] Ambulatory [address] Repository 10/13/2017/10/14/19 [id number] Ambulatory [address] Repository 10/13/2017/10/15/19 [id number] Ambulatory [address] Main [place] Repository 10/09/2017/10/10/19 [id number] Ambulatory [address] Main [place] Repository 10/02/2017/10/03/19 [id number] Emergency [place] Regino[address] ding:ED Repository 09/30/2017/10/08/19 [id number] Ambulatory [address] Main [place] Repository 09/22/2017 [id number] [facility] Rep[facility] 09/18/2017/09/24/19 [id number] Ambulatory [address] Main [place] Repository 09/17/2017/09/19/19 [id number] Ambulatory [address] Main [place] Repository 09/16/2017/09/17/19 [id number] Emergency [place] Regino[address] ding:ED Repository 09/10/2017/09/11/19 [id number] Ambulatory [address] Main [place] Repository 09/01/2017/09/12/19 [id number] Ambulatory [place] Regino[address] ding:DC Repository 08/12/2017/08/14/19 [id number] Ambulatory [address] Main [place] Repository 07/30/2017/08/01/19 [id number] Ambulatory [address] Main [place] Repository 07/29/2017/08/01/19 [id number] Ambulatory [address] Main [place] Repository 07/24/2017/07/26/19 [id number] Ambulatory [address] Main [place] Repository 07/22/2017/07/24/19 [id number] Ambulatory [address] Main [place] Repository 07/18/2017/07/22/19 [id number] Ambulatory [place] [facility] Main [place] Repository 07/17/2017/07/22/19 [id number] Ambulatory [place] [facility] Main [place] Repository 07/16/2017/07/17/19 [id number] Emergency [place] Regino[address] ding:ED Repository 07/16/2017/07/18/19 [id number] Ambulatory [address] Main [place] Repository 07/11/2017/07/15/19 [id number] Ambulatory [address] Main [place] Repository 07/10/2017/07/15/19 [id number] Ambulatory [address] Main [place] Repository 07/03/2017/07/08/19 [id number] Ambulatory [place] [facility] Main [place] Repository 06/27/2017/07/01/19 [id number] Ambulatory [place] [facility] Main [place] Repository 06/25/2017/06/27/19 [id number] Ambulatory [place] [facility] Main [place] Repository 06/23/2017/06/25/19 [id number] Ambulatory [place] [facility] Main [place] Repository 06/18/2017/06/20/19 [id number] Ambulatory [place] [facility] Main [place] Repository 06/16/2017/06/17/19 [id number] Emergency [place] Regino[address] ding:ED Repository 06/11/2017/06/14/19 [id number] Ambulatory [place] [facility] Main [place] Repository 06/07/2017/06/08/19 [id number] Emergency [place] Regino[address] ding:ED Repository 06/05/2017/06/10/19 [id number] Ambulatory [address] Main [place] Repository 06/03/2017/06/06/19 [id number] Ambulatory [address] Main [place] Repository 06/02/2017/06/04/19 [id number] Ambulatory [address] Main [place] Repository 05/30/2017 [id number] Ambulatory [facility] Main [place] Repository 05/30/2017/05/31/19 [id number] Ambulatory [place] [facility] Main [place] Repository 05/30/2017/06/04/19 [id number] Ambulatory [address] Main [place] Repository 05/28/2017/05/30/19 [id number] Ambulatory [place] [facility] Main [place] Repository 05/27/2017/05/29/19 [id number] Ambulatory [place] [facility] Main [place] Repository 05/22/2017/05/27/19 [id number] Ambulatory [place] [facility] Main [place] Repository 05/15/2017/05/16/19 [id number] Ambulatory [place] [facility] Main [place] Repository 05/14/2017/05/23/19 [id number] Ambulatory [place] [facility] Main [place] Repository 05/08/2017/05/12/19 [id number] Ambulatory [address] Main [place] Repository 05/07/2017 [id number] [facility] Rep[facility] 05/06/2017/05/08/19 [id number] Ambulatory [place] [facility] Main [place] Repository 05/01/2017/05/06/19 [id number] Ambulatory [place] [facility] Main [place] Repository 04/30/2017/04/30/19 [id number] Ambulatory [place] [facility] Main [place] Repository 04/28/2017/04/28/19 [id number] Ambulatory [place] [facility] Main [place] Repository 04/22/2017/04/22/19 [id number] Ambulatory [place] [facility] Main [place] Repository 04/22/2017/04/22/19 [id number] Ambulatory [place] [facility] Other [place] Repository 04/22/2017/04/22/19 [id number] Ambulatory [address] MEDICAL Repository DECATURBuildi ng:CAGWS 04/22/2017/04/24/19 [id number] Ambulatory [place] [facility] Main [place] Repository 04/22/2017/04/23/19 [id number] Ambulatory [place] [facility] Main [place] Repository 04/18/2017/04/18/19 [id number] Ambulatory [place] [facility] Main [place] Repository 04/18/2017/04/21/19 [id number] Ambulatory [place] [facility] Main [place] Repository 04/16/2017/04/23/19 [id number] Ambulatory [place] [address] ding:[place] Repository PAYERS PAYERS ENCOUNTER GUARANTOR PAYER SUBSCRIBER SOURCE 03/09/2018 RENATO NOONAN Primary RENATO Lacy Jr.[address] Insurance:MEDICARE Jr.: [place] PART A [facility] [id number] [id number]: (330) Number: Repository [phone] () [id number] Date:2017 03/09/2018 Secondary NOT GIVENUNK [place] Insurance:SELF PAY [facility] Number: Effective Repository Date:2018-03-09 03/09/2018 RENATO NOONAN Primary RENATO Lacy Jr.[address] Insurance:MEDICARE Jr.: [place] PART A [facility] [id number] [id number]: (330) Number: Repository [phone] () [id number] Date:2017 03/09/2018 Secondary NOT GIVENUNK [place] Insurance:SELF PAY [facility] Number: Effective Repository Date:2017 01/15/2018 RENATO Evita NOONAN Primary RENATO Lacy Jr[address] Insurance:MEDICARE Jr.: [place] PART A [facility] [id number] Hospital [address]Iaq: (330) Number: Repository [phone] () [id number] Date:2018-01-15 01/15/2018 Secondary NOT GIVENUNK [place] Insurance:SELF PAY [facility] Number: Effective Repository Date:2018-01-15 01/02/2018 RENATO Jama SHAISTA Primary RENATO Jama SHAISTA [place] Jr.[address] Insurance:MEDICARE Jr.: [place] PART A [facility] [id number] Hospital 46531Rmp: (330) Number: Repository [phone] () [id number] Date:2018-01-01 01/02/2018 Secondary NOT GIVENUNK [place] Insurance:SELF PAY [facility] Number: Effective Repository Date:2018-01-02 01/01/2018 RENATO Jama SHAISTA Primary RENATO Jama SHAISTAYong Lacy Jr.[address] Insurance:MEDICARE Jr.: [place] PART A [facility] [id number] Hospital 68993Bsq: (330) Number: Repository [phone] () [id number] Date:2018-01-01 01/01/2018 Secondary RENATO Lacy Insurance:MEDICAIDPol Jr.: [facility] Number: [id number] 0Effective Repository Date:2018-01-01 01/01/2018 Tertiary NOT GIVENUNK [place] Insurance:SELF PAY [facility] Number: Effective Repository Date:2018-01-01 01/01/2018 RENATO Jama SHAISTA Primary RENATO Evita SHAISTA Lacy Jr.[address] Insurance:MEDICARE Jr.: [place] PART A [facility] [id number] Hospital 74206Qjw: (330) Number: Repository [phone] () [id number] Date:2018-01-01 01/01/2018 Secondary NOT GIVENUNK [place] Insurance:SELF PAY [facility] Number: Effective Repository Date:2018-01-01 01/01/2018 RENATO NOONAN Primary RENATO Lacy Jr.[address] Insurance:MEDICARE Jr.: [place] PART A olic [id number] Hospital [address]778Gpf: (330) Number: Repository [phone] () [id number] Date:2018-01-01 01/01/2018 Secondary NOT GIVENUNK [place] Insurance:SELF PAY [facility] Number: Effective Repository Date:2018-01-01 01/01/2018 RENATO NOONAN Primary RENATO Lacy Jr.[address] Insurance:MEDICARE Jr.: [place] PART A olic [id number] Hospital 118[address]Udl: (330) Number: Repository [phone] () [id number] Date:2018-01-01 01/01/2018 Secondary NOT GIVENUNK [place] Insurance:SELF PAY [facility] Number: Effective Repository Date:2018-01-01 12/22/2017 RENATO ADHIKARIY Primary RENATO [facility] .: Insurance:MEDICARE A JR.: [facility] AND BPolicy Number: [id number] Repository THICKET [id number] [place], [place] Date: [address]Zfu: () 12/22/2017 Secondary RENATO NOONAN [facility] Insurance:STATE FARM JR.: Health System AUTO FLPolicy Number: [id number] Repository [id number] Date: 12/08/2017 RENATO Jama SHAISTA Primary NOT GIVENUNK [place] Jr.[address] Insurance:SELF PAY [facility] [address]Uyh: (330) Number: Effective Repository [phone] () Date:2017 12/08/2017 RENATO NOONAN Primary RENATO Lacy Jr.[address] Insurance:MEDICARE Jr.: [facility], [place] PART A olicy [id number] Hospital [address]Dfi: (330) Number: Repository [phone] () [id number] Date:2017-12-08 12/08/2017 Secondary NOT GIVENUNK [place] Insurance:SELF PAY [facility] Number: Effective Repository Date:2017-12-08 12/08/2017 RENATO NOONAN Primary RENATO Lacy Jr[address] Insurance:MEDICARE Jr.: [facility], [place] PART A [facility] [id number] Hospital 696[address]Rji: (330) Number: Repository [phone] () [id number] Date:2017-12-08 12/08/2017 Secondary NOT GIVENUNK [place] Insurance:SELF PAY [facility] Number: Effective Repository Date:2017-12-08 12/05/2017 RENATO NOONAN Primary RENATO Evita SHAISTA [place] Jr.[address] Insurance:MEDICARE Jr.: [facility] [facility] [id number] Hospital [address]676Obv: (330) Number: Repository [phone] () [id number] Date:2017-11-21 12/05/2017 Secondary NOT GIVENUNK [place] Insurance:SELF PAY [facility] Number: Effective Repository Date:2017-11-21 2017 RENATO NOONAN Primary RENATO Lacy Jr.[address] Insurance:MEDICARE Jr.: [facility], [place] PART A olic [id number] Hospital 837[address]Pzq: (330) Number: Repository [phone] () [id number] Date:2017-11-19 2017 Secondary NOT GIVENUNK [place] Insurance:SELF PAY [facility] Number: Effective Repository Date:2017 11/25/2017 RENATO NOONAN Primary RENATO Lacy Jr[address] Insurance:MEDICARE Jr.: [facility] [place] PART A [facility] [id number] Hospital [address]Waf: (330) Number: Repository [phone] () [id number] Date:2017-11-25 11/25/2017 Secondary RENATO NOONAN [place] Insurance:MEDICAIDPol Jr.: [facility] icy Number: [id number] Hospital 0Effective Repository Date:2017-11-25 11/25/2017 Tertiary NOT GIVENUNK [place] Insurance:SELF PAY [facility] Number: Effective Repository Date:2017-11-25 11/19/2017 RENATO ADHIKARIY Primary RENATO Torresoster Jr.[address] Insurance:MEDICARE Jr.: [facility], [place] PART [place] [facility] [id number] Hospital 110[address]Hcf: (330) Number: Repository [phone] () [id number] Date:2017-11-19 11/19/2017 Secondary RENATO P SHAISTA [place] Insurance:MEDICAIDPol Jr.: [facility] ic Number: [id number] Hospital 0Effective Repository Date:2017-11-19 11/19/2017 Tertiary NOT GIVENUNK [place] Insurance:SELF PAY [facility] Number: Effective Repository Date:2017-11-19 11/19/2017 RENATO NOONAN Primary RENATO Torresoster Jr.[address] Insurance:MEDICARE Jr.: [facility], [place] PART A [facility] [id number] Hospital [address]58[address]Pif: (330) Number: Repository [phone] () [id number] Date:2017-11-19 11/19/2017 Secondary NOT GIVENUNK [place] Insurance:SELF PAY [facility] Number: Effective Repository Date:2017-11-19 11/19/2017 RENATO NOONAN Primary RENATO Torresoster Jr.[address] Insurance:MEDICARE Jr.: [facility] [facility] [id number] Hospital 633[address]Cec: (330) Number: Repository [phone] () [id number] Date:2017-11-19 11/19/2017 Secondary NOT GIVENUNK [place] Insurance:SELF PAY [facility] Number: Effective Repository Date:2017-11-19 11/19/2017 RENATO NOONAN Primary RENATO Lacy Jr.[address] Insurance:MEDICARE Jr.: [facility], [place] PART A olicy [id number] Hospital 932[address]Ymb: (330) Number: Repository [phone] () [id number] Date:2017-11-19 11/19/2017 Secondary RENATO NOONAN [place] Insurance:MEDICAIDPol Jr.: [facility] icy Number: [id number] Hospital [id number] Repository Date:2017-11-19 11/19/2017 Tertiary NOT GIVENUNK [place] Insurance:SELF PAY [facility] Number: Effective Repository Date:2017-11-19 11/19/2017 RENATO NOONAN Primary RENATO Lacy Jr[address] Insurance:MEDICARE Jr.: [facility] [facility] [id number] Hospital 54881Xke: (330) Number: Repository [phone] () [id number] Date:2017-11-19 11/19/2017 Secondary RENATO Lacy Insurance:MEDICAIDPol Jr.: [facility] icy Number: [id number] Hospital [id number] Repository Date:2017-11-19 11/19/2017 Tertiary NOT GIVENUNK [place] Insurance:SELF PAY [facility] Number: Effective Repository Date:2017-11-19 11/19/2017 RENATO NOONAN Primary RENATO Lacy Jr.[address] Insurance:MEDICARE Jr.: [facility], [place] PART A [facility] [id number] Hospital 67657Csl: (330) Number: Repository [phone] () [id number] Date:2017-11-19 11/19/2017 Secondary NOT GIVENUNK [place] Insurance:SELF PAY [facility] Number: Effective Repository Date:2017-11-19 11/19/2017 RENATO NOONAN Primary RENATO Lacy Jr.[address] Insurance:[facility]ICARE Jr.: [facility] [place] PART [place] [facility] [id number] Hospital 16147Rsy: (330) Number: Repository [phone] () [id number] Date:2017-11-19 11/19/2017 Secondary RENATO P SHAISTA [place] Insurance:MEDICAIDPol Jr.: [facility] icy Number: [id number] Hospital 0Effective Repository Date:2017-11-19 11/19/2017 Tertiary NOT GIVENUNK [place] Insurance:SELF PAY [facility] Number: Effective Repository Date:2017-11-19 10/02/2017 RENATO P SHAISTA Primary RENATO P SHAISTA [place] Jr.[address] Insurance:MEDICARE Jr.: [place] PART A [facility] [id number] Hospital 065[address]Vmn: (330) Number: Repository [phone] () [id number] Date:2017-10-02 10/02/2017 Secondary RENATO P SHAISTA [place] Insurance:MEDICAIDPol Jr.: [facility] ic Number: [id number] Hospital .Effective Repository Date:2017-10-02 10/02/2017 Tertiary NOT GIVENUNK [place] Insurance:SELF PAY [facility] Number: Effective Repository Date:2017-10-02 09/22/2017 RENATO P SHAISTA Primary RENATO P SHAISTA [place] Jr[address] Insurance:MEDICARE Jr.: [place] PART A [facility] [id number] Hospital 794[address]Qmo: (330) Number: Repository [phone] () [id number] Date:2017-08-05 09/22/2017 Secondary NOT GIVENUNK [place] Insurance:SELF PAY [facility] Number: Effective Repository Date:2017-09-21 09/16/2017 RENATO P SHAISTA Primary RENATO P SHAISTA [place] Jr[address] Insurance:MEDICARE Jr.: [place] PART [place] [facility] [id number] Hospital 18052Ifq: (330) Number: Repository [phone] () [id number] Date:2017-09-16 09/16/2017 Secondary RENATO P SHAISTA [place] Insurance:MEDICAIDPol Jr.: [facility] icy Number: [id number] Hospital .Effective Repository Date:2017-09-16 09/16/2017 Tertiary NOT GIVENUNK [place] Insurance:SELF PAY [facility] Number: Effective Repository Date:2017-09-16 09/01/2017 RENATO NOONAN Primary RENATO Torresoster Jr[address] Insurance:MEDICARE Jr.: [place] PART [place] [facility] [id number] Hospital [address]Abk: (330) Number: Repository [phone] () [id number] Date:2017-08-05 09/01/2017 Secondary RENATO NOONAN [place] Insurance:MEDICAIDPol Jr.: [facility] icy Number: [id number] Hospital .Effective Repository Date:2017-08-05 09/01/2017 Tertiary NOT GIVENUNK [place] Insurance:SELF PAY [facility] Number: Effective Repository Date:2017-08-05 07/16/2017 RENATO NOONAN Primary RENATO FIERROOB: [place] Jr.[address] Insurance[place]ARE [id number] [facility] [address]Uqx: (330) Number: Repository [phone] () [id number] Date:2017-07-16 07/16/2017 Secondary NOT GIVENUNK [place] Insurance:SELF PAY [facility] Number: Effective Repository Date:2017-07-16 06/16/2017 RENATO NOONAN Primary RENATO Torresoster Jr[address] Insurance:STATE FARM Jr.: [place] [facility] [id number] Hospital [address]26[address]Xlm: (330) Number: Repository [phone] () [id number] Date: [place], [place] [address]VH: . 06/16/2017 Secondary RENATO Lacy Insurance:MEDICARE Jr.: Community PART A [facility] [id number] Hospital Number: Repository [id number] Date:2017-06-16 06/16/2017 Tertiary NOT GIVENUNK [place] Insurance:SELF PAY [facility] Number: Effective Repository Date:2017-06-16 06/07/2017 RENATO NOONAN Primary RENATO Lacy Jr[address] Insurance:STATE FARM Jr.: [place] AUTOPolicy Number: [id number] Hospital [address]Toq: (045) [id number] Repository [phone] ([phone]) Date:[id number]: [address]ARDO [address], [place] [address]ZZ: 06/07/2017 Secondary RENATO Lacy Insurance:MEDICARE .: Community PART A [facility] [id number] Hospital Number: Repository [id number] Date:2017-06-07 06/07/2017 Tertiary NOT GIVENUNK [place] Insurance:SELF PAY [facility] Number: Effective Repository Date:2017-06-07 05/07/2017 RENATO NOONAN Primary RENATO Lacy Jr[address] Insurance:MEDICARE Jr.: [place] PART [place] [facility] [id number] Hospital [address]Fym: (066) Number: Repository [phone] () [id number] Date:1987-03-24 05/07/2017 Secondary NOT GIVENUNK [place] Insurance:SELF PAY [facility] Number: Effective Repository Date:2017-04-24 04/22/2017 RENATO NOONAN Primary RENATO NOONAN [facility] Insurance:MEDICARE A JR.: [facility] Number: [id number] Repository THICKET [id number] [place], [place] Date: [address]Qfs: (HP) 04/16/2017 RENATO NOONAN Primary RENATO Lacy Jr[address] Insurance:MEDICARE Jr.: [place] PART [place] [facility] [id number] Hospital [address]Mwt: (819) Number: Repository [phone] () [id number] Date:1985-03-24 04/16/2017 Secondary NOT GIVENUNK [place] Insurance:SELF PAY [facility] Number: Effective Repository Date:2017-01-07
== END ==
PROVIDERS: Family Provider Family Medicine; PCP Family Medicine; Referring Provider Internal Medicine Cardiovascular Disease; Visit Provider Internal Medicine Cardiovascular Disease
DX: I10 Essential (primary) hypertension (principal); I25.10 Atherosclerotic heart disease of native coronary artery without angina pectoris; I21.3 ST elevation (STEMI) myocardial infarction of unspecified site; Z95.5 Presence of coronary angioplasty implant and graft
CPT/HCPCS: 93306

== ENCOUNTER → 2018-05-20 14:36 | Outpatient (CLI) | payer MEDICARE, SELFPAY ==
[2017-11-19 09:37] VITALS: BMI 31.8
--- NOTE | 2018-05-20 14:43 | CT_ITS ---
STUDY: CT MAXILLOFACIAL SINUSES REASON FOR EXAM: Male, 67 years old. Chronic sinusitis, history of traumatic brain injury, bipolar disorder RADIATION DOSAGE (If Supplied By Facility): CTDIvol = ( 33.45 ) mGy, DLP = ( 830.72 ) mGycm TECHNIQUE: The patient was scanned in a multi detector CT scanner. High resolution axial imaging was performed without the administration of intravenous contrast material. Sagittal and coronal images were reconstructed. Individualized dose optimization techniques were used for this CT. COMPARISON: None. FINDINGS: FRONTAL SINUSES: Normal aeration, without mucosal inflammatory disease. ETHMOIDAL SINUSES: Normal aeration, without mucosal inflammatory disease. MAXILLARY SINUSES: There is mild mucosal thickening of the inferior left maxillary sinus. There is an osseous defect of the lateral aspect of the inferior left orbital wall with minimal protrusion of orbital fat into the superolateral left maxillary sinus. SPHENOIDAL SINUSES: Normal aeration, without mucosal inflammatory disease. There is patency of the bilateral maxillary infundibuli with normal uncinate processes, ethmoid bullae, and hiatus semilunaris. Normal bilateral middle turbinates. Normal bilateral inferior turbinates. Normal midline nasal septum. There is patency of the bilateral nasal airways. The visualized osseous structures are normal. The visualized bilateral orbital contents are normal. CT/Sinus/Facial Bone IMPRESSION: 1. Minimal mucosal thickening of the inferior left maxillary sinus. 2. There is an osseous defect of the lateral aspect of the inferior left orbital wall with minimal protrusion of orbital fat into the superolateral aspect of the left maxillary sinus. Electronically Signed: Nguyễn Yo MD at 20:58 EST , Service support ,
== END ==
PROVIDERS: Family Provider Family Medicine; PCP Family Medicine; Referring Provider Otolaryngology; Visit Provider Otolaryngology
DX: J32.9 Chronic sinusitis, unspecified (principal)
CPT/HCPCS: 70486

== ENCOUNTER 2018-06-14 09:12 | Emergency (ER) | payer MEDICARE, SELFPAY ==
[2017-11-19 09:37] VITALS: BMI 31.8
[2018-06-14 09:13] VITALS: BP 103/69; PULSE 67; RESP 16; TEMP 36.6; O2SAT 95; BMI 30.2
--- NOTE | 2018-06-14 09:48 | EKG12_ITS ---
Test Reason : ALTERED LOC Blood Pressure : / mmHG Vent. Rate : 062 BPM Atrial Rate : 300 BPM P-R Int : 000 ms QRS Dur : 086 ms QT Int : 394 ms P-R-T Axes : 000 -21 105 degrees QTc Int : 399 ms Atrial fibrillation with a competing junctional pacemaker Nonspecific ST and T wave abnormality Abnormal ECG Confirmed by GRETA JASON, CHARI ([id number]), science editor VENTURA FINK ([id number]) on 06/15/2018 1:07:48 PM Referred By: CAMMIE Confirmed By:CHARI HERNANDES MD
--- NOTE | 2018-06-14 09:51 | ED.DCSUM_ITS ---
- ER Visit Summary Date of Service: 06/14/18 Chief Complaint: Altered mental status History of Present Illness: The patient is a 67 M who presents with altered mental status today. Patient states he was told he could take 3 tablets of his muscle relaxer per day. Patient states he took all 3 tablets at one time today. Patient has been having some confusion and increased sleepiness today. Patient denies any chest pain or shortness of breath. Patient denies any nausea or vomiting. Patient does admit to a headache. Patient denies any rashes or swelling. Physical Examination: Vital signs are stable. Patient is afebrile. Patient is in no acute distress. Oral mucosa is pink and somewhat dry. Neck is supple. Trachea is midline. There is no JVD noted. Heart was irregularly irregular. Lungs are clear and equal bilateral. Abdomen is soft nontender. Cranial nerves II through XII are intact. There are no focal motor or sensory deficits noted. The remaining physical exam is within normal limits. Test Results: EKG showed atrial fibrillation with a rate of 62. There are nonspecific ST-T wave changes. There are no acute ST or T wave changes. CBC shows a mild anemia with a hemoglobin of 11.5 and hematocrit 36.1. Basic metabolic profile showed BUN of 34 and creatinine 2.26. These are slightly elevated from previous results but not significantly elevated. Glucose was 296. Emergency Department Course and Treatment: Patient was observed here in the emergency department. Crisis counseling was in to evaluate the patient for possible medication adjustment. Patient was instructed to take Depakote 500 mg 3 tablets twice daily and Trileptal 300 mg twice daily at his most recent counseling appointment. Patient was instructed to stop the perphenazine at that time. These medication doses were given to the patient with instructions to start this. Patient was instructed to stop taking the muscle relaxers. Patient was instructed to follow-up with his primary care physician in 3-5 days. Rogers orta understood and was agreeable with the plan. All questions were answered. Disposition: Discharge home Impression: Accidental medication overdose This note was generated with [employer] dictation software. It may contain incorrect words, spelling, and punctuation that were not noted in review of the chart prior to signing ED Disposition - Plan for ED Patient: Disposition: Home or Assisted Living Diagnosis: Accidental medication overdose Instructions: ED Confusion Referrals: Issa Trinidad MD [Primary Care Provider] - 3-5 Days Additional Instructions: Stop taking your muscle relaxer which is Flexeril. Take your Depakote 500 mg 3 tablets twice daily. Take your Trileptal 300 mg twice daily. Do not take perphenazine. Follow-up with your primary care physician in 3-5 days.
[2018-06-14 10:06] LABS: Absolute Neutrophil Count 6.3 X10^3/uL (2.0-7.7); Basophil# 0.01 X10^3/uL; Basophil% 0.1 % (0-1); Eosinophil# 0.25 X10^3/uL; Eosinophils% 2.5 % (0-5); Hematocrit 36.1 % (40-54); Hemoglobin 11.5 g/dl (13.0-16.5); Lymphocyte % 19.1 % (19-41); Mean Corp Hgb Conc 31.9 g/gl (32-36); Mean Corpuscular Hgb 32.1 pg (27.0-32.0); Mean Corpuscular Volume 100.8 fL (80-94); Mean Platelet Vol. 10.6 fl (6.2-12.0); Monocyte# 1.44 X10^3/uL; Monocyte% 14.5 % (0-10); Neutrophil # 6.32 X10^3/uL (2.7-7.7); Neutrophil % 63.5 % (47-70); POSITIVE COUNT NO; POSITIVE DIFFERENTIAL NO; POSITIVE MORPHOLOGY NO; Platelet Count 193 K/mm3 (150-450); RBC Distribution Width SD 46.6 fl (35.1-43.9); Red Blood Count 3.58 M/mm3 (4.6-6.2)
[2018-06-14 10:27] LABS: ALB/GLOB Ratio 0.7 RATIO (0.9-2.4); AST(SGOT) 20 U/L (15-37); Alanine Aminotransfer ALT/SGPT 28 U/L (16-61); Albumin, Serum 2.5 g/dL (3.2-5.0); Alkaline Phosphatase 71 U/L (45-117); Anion Gap 11 (5-15); BUN 34 mg/dL (7-18); Calcium,Total 7.8 mg/dL (8.5-10.1); Chloride 105 mmol/L (98-107); Creatinine, Serum 2.26 mg/dL (0.70-1.30); EST Glomerular Filtration Rate 31 mL/min (>60); Est Glom Filt Rate - Afr Amer 37 mL/min (>60); Estimated Creatinine Clearance 31.85 ml/min; Globulin 3.7 g/dL (2.2-4.2); Glucose 296 mg/dL (74-106); Potassium 4.2 mmol/L (3.5-5.1); Protein, Total 6.2 g/dL (6.4-8.2); Sodium Level 139 mmol/L (136-145)
[2018-06-14 11:12] VITALS: BP 107/73; PULSE 68; RESP 16; O2SAT 95
[2018-06-14 13:00] VITALS: PULSE 60; RESP 16; O2SAT 96
[2018-06-14 15:00] VITALS: BP 152/80; PULSE 64; RESP 16; O2SAT 96
--- NOTE | 2018-06-14 15:56 | ED.RN ---
PT D[facility] Dalton BORJA RN [id number]
== END 2018-06-14 15:57 | disposition home or self-care (01) ==
PROVIDERS: Emergency Provider Emergency Medicine; Family Provider Family Medicine; PCP Family Medicine
DX: T48.201A Poisoning by unspecified drugs acting on muscles, accidental (unintentional), initial encounter (principal); Y92.9 Unspecified place or not applicable; I48.91 Unspecified atrial fibrillation; E66.9 Obesity, unspecified
CPT/HCPCS: 80053; 84484; 85025; 93005; 99285; J7030; J7040; A4216

== ENCOUNTER 2018-06-19 17:27 | Emergency (ER) | payer MEDICARE, SELFPAY ==
[2017-11-19 09:37] VITALS: BMI 31.8
[2018-06-19 17:28] VITALS: BP 200/119; PULSE 84; RESP 18; TEMP 37.4; O2SAT 97; BMI 30.9
--- NOTE | 2018-06-19 17:50 | ED.VISSUMM ---
- ER Visit Summary Date of Service: 06/19/18 Chief Complaint: Mental health evaluation History of Present Illness: The patient is a 67 M who presents for mental health evaluation. Patient called [employer] to request coupons, and he started trying to explain to them about a similar incident on Friday when he called them and they called 911 because he thought he had overdosed. While patient was trying to talk to them today and explained what happened Friday, they called 911 again. Patient presents with no complaints. Patient denies any suicidal or homicidal ideation. He has no headache, chest pain, shortness of breath, nausea or vomiting, abdominal pain, numbness or weakness in the arms or legs or any complaint at all. Patient states it was just a misunderstanding. Physical Examination: Vital signs: afebrile, hypertensive 200/118, no hypoxia on room air General: well nourished, well developed, in no distress sitting in bed awake and alert Skin: warm, dry, no rash, no pallor HEENT: normocephalic and atraumatic; PERRL, EOMI, moist mucous membranes Cardiovascular: regular rate and rhythm without murmurs, no peripheral edema, 2+ pulses all distal extremities Respiratory: No increased work of breathing, lungs are clear to auscultation bilaterally, no rales, rhonchi or wheezing Abdominal: Abdomen is soft, nontender with normoactive bowel sounds, no guarding or rebound, no masses MSK: Moves all extremities, no deformities, normal strength Neuro: Awake and alert, oriented ?4. No facial droop, sensation and motor function intact and symmetric, speech is mildly slurred at baseline Psych: No SI, no HI, no delusional behavior, no paranoia, no hallucinations Test Results: [] Emergency Department Course and Treatment: Patient presents after home called 911, concern for his health. Patient has no complaints at this time, and his workup is unremarkable. There is no evidence of any psychiatric issue at this time or evidence of any overdose. Patient has been taking his medications exactly as prescribed and has not taken too many muscle relaxants like he did on Friday by accident. Social work will discuss with patient that he cannot be calling stores like he is to talk to them. Patient will be discharged home. Treatment Plan: [] Disposition: [] Impression: Well exam This note was generated with Dragon dictation software. It may contain incorrect words, spelling, and punctuation that were not noted in review of the chart prior to signing ED Disposition - Plan for ED Patient: Disposition: Home or Assisted Living Instructions: Discharge Instructions: Taking Medicine Safely Referrals: Issa Trinidad MD [Primary Care Provider] - 3-5 Days Additional Instructions: Please take all your medications exactly as prescribed by your doctors. Please stop calling the [employer] so that they will stop calling 911. If you have any worsening of your condition or any new concerning symptoms, please return immediately to the emergency department for another evaluation.
--- NOTE | 2018-06-19 18:08 | CM.ED ---
Social Work Assessment Referral Date: 06/19/18 Date of Assessment: 06/19/18 Informant: NURSE/DR. CORRAL Reason for Consult: MENTAL HEALTH Information obtained from: PATIENT Living Arrangements: PATIENT REPORTS LIVES HOME WITH SISTERFADIA [phone] Employment/Financial: RETIRED, NO FINANCIAL CONCERNS REPORTED Supports: PATIENT REPORTS GOOD SUPPORT FROM FAMILY. Social/Family Stressors: PATIENT STATES IS VERY UPSET THAT HE WAS BROUGHT TO THE HOSPITAL. PATIENT STATES THIS WAS A MISTAKE. PATIENT WANTING [facility] TO APOLOGIZE. Mental Health History: PATIENT ADMITS HX OF ANXIETY AND BIPOLAR. PATIENT STATES IS TREATED WITH MEDICATION AND FOLLOWS WITH [facility]. Substance Abuse History: PATIENT DENIES ANY HX OF SUBSTANCE ABUSE. Interventions: SOCIAL SERVICE ASSESSMENT Assessment: PATIENT IS A 67 Y/O MALE WHO PRESENTS TO THE ED BY EMS FOR MENTAL HEALTH EVAL. PATIENT STATES WAS TALKING TO [facility] AND WAS REQUESTING COUPONS. PATIENT REPORTS WAS EXPLAINING EVENTS THAT HAPPENED A FEW DAYS AGO AND THEN NEXT THING PATIENT KNEW HE WAS BEING BROUGHT TO THE HOSPITAL. PATIENT DENIES ANY SUICIDAL OR HOMICIDAL IDEATIONS. PATIENT VISIBLY UPSET BY THE SITUATION. EMOTIONAL SUPPORT PROVIDED. PATIENT DOES NOT WANT FAMILY TO BE UPSET. PATIENT'S SISTER, FADIA TO ROOM. FADIA HERNANDEZ IS WORRIED PATIENT HAS BEEN FOGGY. SISTER WORRIED PATIENT MAY BE OVERMEDICATING. DISCUSSED FAMILY ASSISTING WITH MEDICATION MANAGEMENT. D/C PLAN IS FOR PATIENT TO RETURN HOME WITH SISTER BEFORE. UPDATED NURSING AND DR. CORRAL ON THIS WORKER'S ASSESSMENT. WILL CONTINUE TO FOLLOW AND ASSIST NEEDED. PLAN: D/C HOME WITH SISTER BEFORE
[2018-06-19 18:12] VITALS: BP 198/109
[2018-06-19 18:13] VITALS: BP 198/109
== END 2018-06-19 18:42 | disposition home or self-care (01) ==
LOC: ED 18:14
PROVIDERS: Emergency Provider Emergency Medicine; Family Provider Family Medicine; PCP Family Medicine
DX: Z00.00 Encounter for general adult medical examination without abnormal findings (principal)
CPT/HCPCS: 99284

== ENCOUNTER → 2018-06-22 11:14 | Outpatient (CLI) | payer MEDICARE, SELFPAY ==
[2017-11-19 09:37] VITALS: BMI 31.8
[2018-06-19 17:28] VITALS: BMI 30.9
[2018-06-22 13:55] LABS: Absolute Lymphocyte Count 1.71 X10^3/ul (0.83-4.51); Absolute Neutrophil Count 2.8 X10^3/uL (2.0-7.7); Basophil# 0.01 X10^3/uL; Basophil% 0.2 % (0-1); Eosinophil# 0.19 X10^3/uL; Eosinophils% 3.3 % (0-5); Hematocrit 38.7 % (40-54); Hemoglobin 12.3 g/dl (13.0-16.5); Lymphocyte # 1.71 X10^3/ul (4.0); Mean Corp Hgb Conc 31.8 g/gl (32-36); Mean Corpuscular Volume 97.5 fL (80-94); Mean Platelet Vol. 9.7 fl (6.2-12.0); Monocyte# 1.03 X10^3/uL; Monocyte% 18.1 % (0-10); Neutrophil # 2.75 X10^3/uL (2.7-7.7); Neutrophil % 48.2 % (47-70); Platelet Count 265 K/mm3 (150-450); RBC Distribution Width CV 13.1 % (11.6-14.6); RBC Distribution Width SD 47.1 fl (35.1-43.9); Red Blood Count 3.97 M/mm3 (4.6-6.2); White Blood Count 5.7 K/mm3 (4.4-11.0)
[2018-06-22 14:13] LABS: POSITIVE COUNT NO; POSITIVE DIFFERENTIAL NO; POSITIVE MORPHOLOGY NO
[2018-06-22 14:30] LABS: Valproic Acid (Depakene) Level 111 ug/mL (50-100)
[2018-06-22 14:38] LABS: ALB/GLOB Ratio 0.7 RATIO (0.9-2.4); AST(SGOT) 27 U/L (15-37); Alanine Aminotransfer ALT/SGPT 37 U/L (16-61); Albumin, Serum 2.8 g/dL (3.2-5.0); Alkaline Phosphatase 72 U/L (45-117); Anion Gap 9 (5-15); BUN 39 mg/dL (7-18); BUN/Creat Ratio 18.1 RATIO (10-20); Calcium,Total 8.7 mg/dL (8.5-10.1); Chloride 107 mmol/L (98-107); Creatinine, Serum 2.15 mg/dL (0.70-1.30); EST Glomerular Filtration Rate 33 mL/min (>60); Est Glom Filt Rate - Afr Amer 39 mL/min (>60); Globulin 4.2 g/dL (2.2-4.2); Glucose 71 mg/dL (74-106); Potassium 4.7 mmol/L (3.5-5.1); Sodium Level 141 mmol/L (136-145)
== END ==
PROVIDERS: Family Provider Family Medicine; PCP Family Medicine; Referring Provider Registered Nurse; Visit Provider Registered Nurse
DX: F25.1 Schizoaffective disorder, depressive type (principal); Z79.899 Other long term (current) drug therapy
CPT/HCPCS: 36415; 80053; 80164; 85025

== ENCOUNTER → 2018-06-24 08:54 | Outpatient (CLI) | payer MEDICARE, SELFPAY ==
[2017-11-19 09:37] VITALS: BMI 31.8
[2018-06-19 17:28] VITALS: BMI 30.9
[2018-06-24 10:35] LABS: Valproic Acid (Depakene) Level 66 ug/mL (50-100)
== END ==
PROVIDERS: Family Provider Family Medicine; PCP Family Medicine; Referring Provider Registered Nurse; Visit Provider Registered Nurse
DX: F25.1 Schizoaffective disorder, depressive type (principal); Z79.899 Other long term (current) drug therapy
CPT/HCPCS: 36415; 80164

== ENCOUNTER 2018-09-06 09:11 | Emergency (ER) | payer MEDICARE, SELFPAY ==
[2017-11-19 09:37] VITALS: BMI 31.8
[2018-06-25 10:56] VITALS: BMI 29.9
[2018-09-06 09:12] VITALS: BP 163/94; PULSE 83; RESP 17; TEMP 37.2; O2SAT 97; BMI 29.2
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
[2018-09-06] MEDS: Ketorolac 15 MG/ML Vial IM (10:30)
--- NOTE | 2018-09-06 10:33 | ED.RN ---
Patient refused x-ray 3 times when offered. aware.
== END 2018-09-06 10:55 | disposition home or self-care (01) ==
PROVIDERS: Emergency Provider Physician Assistant Medical; Family Provider Family Medicine; PCP Family Medicine
DX: M25.512 Pain in left shoulder (principal); Z87.891 Personal history of nicotine dependence; G89.29 Other chronic pain; I10 Essential (primary) hypertension; E78.5 Hyperlipidemia, unspecified; I25.10 Atherosclerotic heart disease of native coronary artery without angina pectoris
CPT/HCPCS: 96372; 99282

== ENCOUNTER 2018-10-05 11:30 | Day surgery (SDC) | payer MEDICARE, SELFPAY ==
[2017-11-19 09:37] VITALS: BMI 31.8
--- NOTE | 2018-10-02 13:18 | NURSING ---
At 0920 Pt answered phone. Pt was unable to answer PAT questions, thoughts disconnected, could not give 15minutes into the phone call, talking non-stop with unrelated subjects within the same sentence. this Rn learned that pt lives with his Sister Em. At 1145 this RN able to speak with Em. Em voiced frustration and concern regarding pt's state of mental health, related that police had been called 4 times recently, pt either talks non-stop or is sleeping. This RN asked if Kinjal thought pt was capable of self harm at this time. Em did not think so. this RN encouraged Em to reach out to the PCP. She voiced frustration that the PCP does not see the obvious mental state. This RN encouraged Em to reach out to the [facility] that pt was attending at the time of phone call. At 1245 When second call made to Em, she stated that she did not speak with anyone at [facility] when she picked Car up. This RN informed Em that [facility] certified social workers in health care will be calling her today with potential resources/ways to get help for Car. Em had taken Car to [employer] to shop after she [facility] and he was shopping at time of PAT phone interview. Denaegela stated she noticed the police had arrived at [employer] but did not think it was in relation to Car. This Rn encouraged Em to notify 's office if pt unable to complete prep.
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
[2018-10-05 12:02] VITALS: BP 134/82; PULSE 71; RESP 14; TEMP 36.5; O2SAT 95; BMI 30.9
[2018-10-05 13:15] VITALS: BP 134/82; BP 81/65; PULSE 74; RESP 18; TEMP 36.3; O2SAT 95
[2018-10-05 13:20] VITALS: BP 134/82; BP 88/46; PULSE 83; RESP 18; O2SAT 94
[2018-10-05 13:25] VITALS: BP 134/82; BP 84/60; PULSE 83; RESP 18; O2SAT 95
[2018-10-05 13:37] VITALS: BP 110/63; BP 134/82; PULSE 90; RESP 18; O2SAT 94
--- NOTE | 2018-10-05 14:29 | OP.ENDO_ITS ---
10/05/2018 Issa Trinidad [address] [place] [address] Re : Colonoscopy procedure for Car Rose Dear Dr. Trinidad This procedure was performed on Friday, October 05, 2018. My impressions and recommendations are as follows: Impressions : - Preparation of the colon was poor. Could not clear right colon - Diverticulosis in the sigmoid colon. Patient with redundant sigmoid colon and transverse colon by palpation - Non-bleeding internal hemorrhoids. - No specimens collected. Recommendations : - Repeat colonoscopy within 12 months because the bowel preparation was suboptimal. - Return to primary care physician PRN. - Continue present medications. My findings are described in the full procedure note, which is enclosed. If I can be of further assistance, please feel free to contact me at Doctor phone number(s): , Work: . Sincerely, MD Ivonne Brown MD 10/05/2018 2:29:25 PM This report has been signed electronically.
--- NOTE | 2018-10-05 14:47 | CASEMGMT ---
Social Work Outpatient/AC department Received call from patient's sister Em Rose ([phone]) requesting a copy of Advanced directives to take home for patient to look at, at a later time. Per Em, patient is in recovery at this time and the procedure today could not be fully completed due to patient not completing bowel prep to the standards needed. Supportive listening offered to Em who reports on this date that [facility] from [facility] called to check on things over the weekend but that no other interventions were established for patient from said conversation. This mortgage or loan underwriter did encourage Em, that should patient escalate at home and safety become an issue in the future, to call Crisis and/or the police when the escalation is occurring so that community based providers can assess situation at that time. -VIC Coats, BANDAGE WRAPPING MACHINE OPERATOR
[2018-10-05 14:57] VITALS: BP 134/82
[2018-10-06 07:43] LABS: Bedside Glucose 102 mg/dL (70-110)
--- NOTE | 2018-10-08 14:26 | CASEMGMT ---
Social Work Outpatient Called [facility]; spoke with Abby Shelton. Referral given due to multiple concerns patient's sister shared and feeling at a loss as to how to get more help, as well as comment about safety issues relating to patient leaving diabetic needles throughout the house. Brief patient history provided. Abby will follow up with patient at home within 3 business days to assess home situation and review resources that may be helpful to the family. No other services requested or indicated. -VIC Coats, RETAIL CLERK
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
== END 2018-10-05 14:58 | disposition home or self-care (01) ==
LOC: EN 11:31 → AC 11:32
PROVIDERS: Family Provider Family Medicine; PCP Family Medicine; Referring Provider Family Medicine; Visit Provider Surgery
PROC: 0DJD8ZZ Inspection of Lower Intestinal Tract, Via Natural or Artificial Opening Endoscopic (ICD-10-PCS; CPT 45378; principal; 2018-10-05 12:25)
DX: Z12.11 Encounter for screening for malignant neoplasm of colon (principal); D12.0 Benign neoplasm of cecum; K57.30 Diverticulosis of large intestine without perforation or abscess without bleeding; Q43.8 Other specified congenital malformations of intestine; K64.8 Other hemorrhoids; I48.0 Paroxysmal atrial fibrillation; I25.10 Atherosclerotic heart disease of native coronary artery without angina pectoris; E11.40 Type 2 diabetes mellitus with diabetic neuropathy, unspecified; I10 Essential (primary) hypertension; E03.9 Hypothyroidism, unspecified; E78.2 Mixed hyperlipidemia; M10.9 Gout, unspecified; K21.9 Gastro-esophageal reflux disease without esophagitis; F20.9 Schizophrenia, unspecified; F31.9 Bipolar disorder, unspecified; F41.9 Anxiety disorder, unspecified; Z79.4 Long term (current) use of insulin; Z79.82 Long term (current) use of aspirin; Z79.02 Long term (current) use of antithrombotics/antiplatelets; Z86.010 Personal history of colon polyps; I25.2 Old myocardial infarction; Z95.5 Presence of coronary angioplasty implant and graft
CPT/HCPCS: G0105; 82962; J7120; J2405

== ENCOUNTER → 2018-12-15 11:32 | Outpatient (CLI) | payer MEDICARE, SELFPAY ==
[2017-11-19 09:37] VITALS: BMI 31.8
[2018-12-15 12:58] LABS: Platelet Count 235 K/mm3 (150-450)
[2018-12-15 13:35] LABS: AST(SGOT) 17 U/L (15-37); Alanine Aminotransfer ALT/SGPT 28 U/L (16-61); Sodium Level 138 mmol/L (136-145); Valproic Acid (Depakene) Level 122 ug/mL (50-100)
== END ==
PROVIDERS: Family Provider Family Medicine; PCP Family Medicine; Referring Provider Psychiatry & Neurology Psychiatry; Visit Provider Psychiatry & Neurology Psychiatry
DX: Z79.899 Other long term (current) drug therapy (principal)
CPT/HCPCS: 36415; 80164; 82140; 84295; 84450; 84460; 85049

== ENCOUNTER 2018-12-30 10:26 | Inpatient (IN) | payer MEDICARE, MEDICAID, SELFPAY ==
[2017-11-19 09:37] VITALS: BMI 31.8
[2018-12-30] VITALS (14 sets, daily range): BP systolic 142–201; BP diastolic 77–117; PULSE 89–161; RESP 16–26; TEMP 36.9–37.8; O2SAT 94–99; BMI 30.4; BMI 28.9; BMI 29.0
--- NOTE | 2018-12-30 10:43 | EKG12_ITS ---
Test Reason : TACHYCARDIA Blood Pressure : / mmHG Vent. Rate : 144 BPM Atrial Rate : 107 BPM P-R Int : 000 ms QRS Dur : 080 ms QT Int : 252 ms P-R-T Axes : 000 -18 124 degrees QTc Int : 390 ms Atrial fibrillation with rapid ventricular response Septal infarct , age undetermined Marked ST abnormality, possible lateral subendocardial injury Abnormal ECG Confirmed by SAMMI JASON, HERNANDO ([id number]), associate entertainment editor VENTURA FINK ([id number]) on 01/06/2019 9:35:37 A M Referred By: Ragini Sutton Confirmed By:NARDA CHAPA MD
--- NOTE | 2018-12-30 10:45 | RAD_ITS ---
EXAM DESCRIPTION: PORTABLE AP CHEST CLINICAL HISTORY: 68 years Male, weakness, altered mental status and confusion COMPARISON: Previous portable chest obtained on 01/01/2018 FINDINGS: The thorax is intact. The heart and mediastinum appear to be within normal limits. A patchy pneumonic infiltrate is now noted in the left upper lobe. The right lung is normal. RAD/Chest 1 View (Portable) IMPRESSION: Early patchy pneumonic infiltrate in the left upper lobe. Electronically Signed: Car Santos, at 11:13 EDT Tel , Service support ,
--- NOTE | 2018-12-30 10:46 | CT_ITS ---
STUDY: CT BRAIN WITHOUT CONTRAST REASON FOR EXAM: Male, 68 years old. History of traumatic brain injury and schizophrenia RADIATION DOSAGE (If Supplied By Facility): CTDIvol = ( 44.99 ) mGy, DLP = ( 880.47 ) mGycm TECHNIQUE: Transaxial CT imaging of the brain was performed without administration of intravenous contrast material. Individualized dose optimization techniques were used for this CT. COMPARISON: Previous MRI of the head obtained on 06/21/2014, previous CT scan obtained on 12/09/2016. FINDINGS: Normal soft tissue structures. Normal calvarium. Normal size ventricles and extra-axial spaces for the patient's age. Normal white matter tracts of the cerebral hemispheres. Normal basal ganglia and thalami. Normal brainstem. Normal cerebellum. There is no intracranial hemorrhage. There are no findings of an acute ischemic infarction. Normal visualized paranasal sinuses. CT/Brain/Head without Contrast IMPRESSION: Normal unenhanced CT scan of the brain. Electronically Signed: Car Santos, at 11:36 EDT Tel , Service support ,
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
[2018-12-30 10:57] LABS: Absolute Lymphocyte Count 0.81 X10^3/uL (0.83-4.51); Absolute Neutrophil Count 5.2 X10^3/uL (2.0-7.7); Basophil# 0.04 X10^3/uL; Basophil% 0.5 % (0-1); Hematocrit 45.3 % (40-54); Hemoglobin 15.1 g/dL (13.0-16.5); Lymphocyte # 0.81 X10^3/ul (4.0); Lymphocyte % 10.6 % (19-41); Mean Corp Hgb Conc 33.3 g/dL (32-36); Mean Corpuscular Hgb 31.9 pg (27.0-32.0); Mean Corpuscular Volume 95.6 fL (80-94); Monocyte% 20.9 % (0-10); NRBC Flagged by Analyzer 0.3 % (0-5); Neutrophil # 5.17 X10^3/uL (2.7-7.7); Neutrophil % 67.6 % (47-70); POSITIVE DIFFERENTIAL YES; POSITIVE MORPHOLOGY YES; Platelet Count 200 K/mm3 (150-450); RBC Distribution Width CV 13.2 % (11.6-14.6); RBC Distribution Width SD 46.5 fl (35.1-43.9); Red Blood Count 4.74 M/mm3 (4.6-6.2); White Blood Count 7.7 K/mm3 (4.4-11.0)
[2018-12-30 10:59] LABS: Differential Indicated SCAN CRITERIA MET
[2018-12-30] MEDS: 0.9% Normal Saline 1,000 ML 150 ML IV ×2 (11:01→18:03)
[2018-12-30 11:06] LABS: International Normalized Ratio 1.1; Partial Thromboplast Time 28.6 Seconds (24.1-36.2); Prothrombin Time (Protime)PT. 14.4 SECONDS (11.7-14.9)
[2018-12-30 11:12] LABS: ALB/GLOB Ratio 0.6 RATIO (0.9-2.4); AST(SGOT) 32 U/L (15-37); Alanine Aminotransfer ALT/SGPT 45 U/L (16-61); Albumin, Serum 2.9 g/dL (3.2-5.0); Alkaline Phosphatase 68 U/L (45-117); Anion Gap 7 (5-15); BUN 45 mg/dL (7-18); BUN/Creat Ratio 19.7 RATIO (10-20); Calcium,Total 9.3 mg/dL (8.5-10.1); Chloride 111 mmol/L (98-107); Creatinine, Serum 2.28 mg/dL (0.70-1.30); EST Glomerular Filtration Rate 30 mL/min (>60); Est Glom Filt Rate - Afr Amer 37 mL/min (>60); Estimated Creatinine Clearance 30.15 ml/min; Globulin 4.5 g/dL (2.2-4.2); Glucose 278 mg/dL (74-106); Potassium 4.8 mmol/L (3.5-5.1); Protein, Total 7.4 g/dL (6.4-8.2); Sodium Level 139 mmol/L (136-145)
[2018-12-30 11:24] LABS: Valproic Acid (Depakene) Level 26 ug/mL (50-100)
[2018-12-30 11:31] LABS: Lactic Acid 2.9 mmol/L (0.4-2.0)
[2018-12-30 12:22] LABS: Bacteria 0 SEEN /hpf (None Seen); Mucous, Urine 0 SEEN /hpf (<or=2+); Squamous Epithelial Cells - UA 0 SEEN /hpf (0-5); White Blood Cells 0 SEEN /hpf (0-5)
[2018-12-30 12:25] LABS: Color, Urine Yellow (Yellow); Glucose, Dipstick 1000 mg/dl (Normal); Ketone-Dipstick 5 mg/dl (Negative); Leukocyte Esterase-Dipstick Negative /ul (Negative); Nitrite-Dipstick Negative (Negative); Occult Blood-Urine 50 /ul (Negative); Protein-Dipstick 100 mg/dl (Negative); Urine Bilirubin Dipstick Negative (Negative); Urine Clarity Clear (Clear); Urine Urobilinogen Normal (Normal)
[2018-12-30 12:33] LABS: Red Blood Cells-Urine 0-5 SEEN /hpf (0-5)
[2018-12-30] MEDS: Acetaminophen 500 MG Tablet 1000 MG PO (12:51)
--- NOTE | 2018-12-30 13:01 | HP.PCM_ITS ---
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 Nguyen @ [facility] (5) Stented coronary artery Status: Chronic Comment: LAURE to mid LAD: 2.5 X [address] Nguyen @ [facility] (6) STEMI (ST elevation myocardial infarction) Status: Chronic Qualifiers: Involved coronary artery: right coronary artery Qualified Code(s): I21.11 - ST elevation (STEMI) myocardial infarction involving right coronary artery Comment: Anterior STEMI in October 2017 (7) Diabetes mellitus, type II Status: Chronic Qualifiers: Diabetes mellitus exterminator helper insulin use: with fdc use Diabetes mellitus complication status: with unspecified complications Comment: BG readings checked at various times of day. Range 58-200+ He does have a pattern of waking with low Bg. Will reduce his pm lantus today and have him call back office with any further low BG. Reports taking insulin as directed as well as his oral agents. Is due for labs and I have ask him to do these today or tomorrow. BP recheck 134/76 (8) Bipolar disorder Status: Chronic Qualifiers: Active/Remission status: remission status unspecified Qualified Code(s): F31.9 - Bipolar disorder, unspecified (9) Atrial fibrillation Status: Chronic Qualifiers: Atrial fibrillation type: paroxysmal Qualified Code(s): I48.0 - Paroxysmal atrial fibrillation (10) Hyperlipidemia Status: Chronic Qualifiers: Hyperlipidemia type: pure hypercholesterolemia Qualified Code(s): E78.00 - Pure hypercholesterolemia, unspecified; E78.0 - Pure hypercholesterolemia (11) Neuropathy Status: Chronic (12) Hypertension Status: Chronic Qualifiers: Hypertension type: essential hypertension Qualified Code(s): I10 - Essential (primary) hypertension (13) Gout Status: Chronic Qualifiers: Gout site: unspecified site Gout etiology: unspecified cause Chronicity: unspecified Qualified Code(s): M10.9 - Gout, unspecified (14) Traumatic brain injury Status: Chronic (15) Arthritis Status: Chronic (16) Change in mental status Status: Acute (17) Sepsis Status: Suspected Qualifiers: Sepsis acute organ dysfunction status: without acute organ dysfunction History of Present Illness Date of Admission: 12/30/18 Chief Complaint: brought to the ED by family who state that he has had a change in mentation .....they left prior to talking with me and did not accompany the pt to his room The patient is a 68 year old M with a past medical history of bipolar disorder, traumatic brain injury, coronary artery disease with history of PTCA/LAURE to the mid LAD by Dr. Nguyen in the past, diabetes mellitus type 2, atrial fibrillation, hyperlipidemia, hypertension, gout, osteoarthritis, neuropathy and chronic renal failure stage III who was brought to the emergency department [facility] on 12/30/2018 his family with a complaint of increased confusion/altered mental status over the past week. Vital signs at presentation to the emergency room were temperature 99.2, pulse rate 135, blood pressure 201/108, respiratory rate 24 and he was 99% saturated on room air. A stroke alert was called and he was sent for a noncontrasted CT brain that was normal. CBC showed a white blood cell count of 7.7 with an unremarkable differential. Hemoglobin was 15.1 (up from 12.3 on 06/22/2018), and platelets were within normal limits. BMP showed an elevated creatinine at 2.28, up from 2.15 on June 22, 2018. Random blood sugar was 278. Hemoglobin A1c was 8.8. Initial lactic acid was 2.9 but following hydration was 1.8. Chest x-ray was reported by the radiologist as having a patchy left upper lobe infiltrate but, he is not coughing and he has no SOB and he is 99% saturated on RA? He has chronic expressive aphasia and this is not new. He recognizes the staff on PCU and he is following all commands appropriately. He is emotionally labile but, this is not new. I suspect the LA may be due to dehydration because his MM are very dry. He is being admitted to PCU with a presumptive dx of CAP but, I am not convinced he has PNA. Will order a CT chest to get a better look at the NIDA. 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 Nguyen @ [facility] Stented coronary artery (Chronic 11/19/17) LAURE to mid LAD: 2.5 X [address] Nguyen @ [facility] STEMI (ST elevation myocardial infarction) (Chronic 11/19/17) Anterior STEMI in October 2017 Diabetes mellitus, type II (Chronic) BG readings checked at various times of day. Range 58-200+ He does have a pattern of waking with low Bg. Will reduce his pm lantus today and have him call back office with any further low BG. Reports taking insulin as directed as well as his oral agents. Is due for labs and I have ask him to do these today or tomorrow. 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 Nguyen @ [facility] STEMI (ST elevation myocardial infarction) (Chronic) Onset Date: 11/19/17 I21.3 Anterior STEMI Diabetes mellitus, type II (Chronic) E11.9 BG readings checked at various times of day. Range 58-200+ He does have a pattern of waking with low Bg. Will reduce his pm lantus today and have him call back office with any further low BG. Reports taking insulin as directed as well as his oral agents. Is due for labs and I have ask him to do these today or tomorrow. BP recheck 134/76 Bipolar disorder (Chronic) F31.9 Hyperlipidemia (Chronic) E78.5 Neuropathy (Chronic) G62.9 Hypertension (Chronic) I10 Traumatic brain injury (Chronic) S06.9X9A Arthritis (Chronic) M19.90 Afib I48.91 Anxiety F41.9 Arthritis M19.90 Back problem M53.9 Cataracts, bilateral H26.9 Depression F32.9 Diabetes type 2, controlled E11.9 GI problem R19.8 Headache R51 Heart disease I51.9 High cholesterol E78.00 Kidney disease N28.9 Osteoarthritis M19.90 Recurrent UTI N39.0 Seasonal allergies J30.2 HTN (hypertension) I10 Allergies atorvastatin [From Lipitor] Allergy (Verified 10/02/18 12:50) Unknown Penicillins Allergy (Verified 10/02/18 12:50) Unknown lisinopril Adverse Reaction (Unknown, Verified 10/02/18 12:50) unknown codeine Adverse Reaction (Verified 10/02/18 12:50) Upset Stomach doxycycline Adverse Reaction (Verified 10/02/18 12:50) Other nickel Adverse Reaction (Verified 10/02/18 12:50) Rash LYCOPEEN Adverse Reaction (Uncoded 10/02/18 12:50) Other Home Medications: Ambulatory Orders Medication Instructions Recorded Divalproex Sodium [Depakote] 1,500 mg PO BID 01/11/13 Ferrous Sulfate [Iron] 325 mg PO DAILY 04/09/16 Gabapentin [Neurontin] 600 mg PO BID 04/09/16 Levothyroxine [Synthroid] 100 mcg PO DAILY 09/07/16 Multivitamin [Daily Multiple 1 tab PO DAILY 09/07/16 Vitamin] aspirin 81 mg tablet,delayed 81 mg PO QDAY 02/27/17 release diclofenac 1 % topical gel 2 g TOPICAL 4X/DAY g 02/27/17 nitroglycerin 0.4 mg sublingual 0.4 mg SUBLINGUAL Q5M PRN 02/27/17 tablet oxcarbazepine 300 mg tablet 300 mg PO BID 02/27/17 Carvedilol [Coreg (Beta Tulio)] 6.25 mg PO BID #60 tab 11/21/17 Ticagrelor [Brilinta] 90 mg PO BID #60 tab 11/21/17 Erythromycin Ophthalmic 1 applic OPHTHALMIC (EYE) DAILY 01/01/18 Liraglutide [Victoza] 1.2 mg SQ DAILY 01/01/18 Oxybutynin [Ditropan] 5 mg PO TID 01/01/18 Perphenazine 8 mg PO QHS 01/01/18 insulin detemir (U-100) 100 40 unit SC DAILY ml 06/25/18 unit/mL (3 mL) subcutaneous pen Insulin Detemir [Levemir FlexPen] 36 units SQ QHS 12/30/18 Meloxicam 15 mg PO DAILY 12/30/18 Surgical History: Surgical History (Last Reviewed 12/30/18 @ 17:36 by Ragini Sutton DO) Stented coronary artery (Chronic) Onset Date: 11/19/17 Z95.5 LAURE to mid LAD: 2.5 X [address] Nguyen @ [facility] Surgical History: - - Cardiac catheterization, T+A, R cataract, L shoulder surgery, R TKR. Psychiatric History: Bipolar, Schizophrenia Lives: With Family - his sister Smoking Status: Never smoker Tobacco Use: Non-smoker Alcohol: None Drugs: None - *Family History Maternal Family History: Family History (Last Reviewed 12/30/18 @ 17:37 by Ragini Sutton DO) Father Arthritis Bleeding disorder Heart disease Hypertension Mother Hypertension History Items: - Paternal Family History: Family History (Last Reviewed 12/30/18 @ 17:37 by Ragini Sutton DO) Father Arthritis Bleeding disorder Heart disease Hypertension Mother Hypertension History Items: - Review of Systems Unable to obtain accurate/complete ROS d/t: not able to obtain a good ROS due to expressive aphasia and no family prese VTE Information - Inpt Only VTE Present on Admission: No VTE Mechan Device Prophylaxis: SCD's VTE Pharm Prophylaxis ordered?: Yes Patient Problems: Active and Suspected Problems (Last Reviewed 06/25/18 @ 11:03 by Jess Sow) Atrial fibrillation with rapid ventricular response (Acute) Community acquired pneumonia (Suspected) Sepsis (Suspected) - Physical Exam General: Alert, Cooperative, Well developed, Well nourished, Confused - he can not tell me the Year or the month but he knows that he is in [facility]... He is able to follow all my simple commands HEENT: Atraumatic, PERRLA, EOMI, Normocephalic Oral: Dry Mucosa Neck: Supple, No JVD, No Nodes, Trachea Midline Lungs: Clear to auscultation, No rhonchi, No wheeze, No rales Cardiovascular: Normal S1, Normal S2, Irregular Rate, No Gallop, - - telemetry shows AF with a controlled VR at present Abdomen: Bowel Sounds Present, Soft, Non-Distended, - - no guarding with palpation Extremities: No clubbing, No cyanosis, No edema, Peripheral Pulses Normal Skin: No rashes, No breakdown Neurological: Cranial nerves II-XII grossly intact, Neuro grossly intact Psych/Mental Status: - - emotionally labile Vital Signs Temp Pulse Resp BP Pulse Ox 98.4 F 106 H 19 H 147/103 H 96 12/30/18 12:40 12/30/18 12:56 12/30/18 12:56 12/30/18 12:40 12/30/18 12:56 Oxygen Delivery Method Room Air Weight: 206 lb 5.643 oz Body Mass Index (BMI) 30.4 Finger Stick Blood Glucose 152 Intake and Output for Last 24 Hours 12/28/18 12/29/18 12/30/18 23:59 23:59 23:59 Intake Total 195 / 195 Output Total 400 / 400 Balance -205 / -205 Laboratory Tests Past 24 Hrs 12/30/18 12/30/18 12/30/18 10:45 10:45 10:45 WBC 7.7 RBC 4.74 Hgb 15.1 Hct 45.3 MCV 95.6 H MCH 31.9 MCHC 33.3 RDW Std Deviation 46.5 H RDW Coeff of Shashank 13.2 Plt Count 200 MPV 10.0 Immature Gran % (Auto) 0.400 Neut % (Auto) 67.6 Lymph % (Auto) 10.6 L [place] % (Auto) 20.9 H Eos % (Auto) 0.0 Baso % (Auto) 0.5 Absolute Neuts (auto) 5.2 Absolute Lymphs (auto) 0.81 L Nucleated RBC % 0.3 PT 14.4 INR 1.1 APTT 28.6 Sodium 139 Potassium 4.8 Chloride 111 H Carbon Dioxide 21.0 Anion Gap 7 BUN 45 H Creatinine 2.28 H Estim Creat Clear Calc 30.15 Est GFR (MDRD) Af Amer 37 L Est GFR (MDRD) Non-Af 30 L BUN/Creatinine Ratio 19.7 Glucose 278 H Lactic Acid Calcium 9.3 Total Bilirubin 0.40 AST 32 ALT 45 Alkaline Phosphatase 68 Troponin I < 0.015 Total Protein 7.4 Albumin 2.9 L Globulin 4.5 H Albumin/Globulin Ratio 0.6 L Urine Color Urine Clarity Urine pH Ur Specific [place] Urine Protein Urine Glucose (UA) Urine Ketones Urine Occult Blood Urine Nitrite Urine Bilirubin Urine Urobilinogen Ur Leukocyte Esterase Urine RBC Urine WBC Ur Squamous Epith Cells Urine Bacteria Urine Mucus Valproic Acid 12/30/18 12/30/18 12/30/18 10:45 10:45 11:53 WBC RBC Hgb Hct MCV MCH MCHC RDW Std Deviation RDW Coeff of Shashank Plt Count MPV Immature Gran % (Auto) Neut % (Auto) Lymph % (Auto) [place] % (Auto) Eos % (Auto) Baso % (Auto) Absolute Neuts (auto) Absolute Lymphs (auto) Nucleated RBC % PT INR APTT Sodium Potassium Chloride Carbon Dioxide Anion Gap BUN Creatinine Estim Creat Clear Calc Est GFR (MDRD) Af Amer Est GFR (MDRD) Non-Af BUN/Creatinine Ratio Glucose Lactic Acid 2.9 H Calcium Total Bilirubin AST ALT Alkaline Phosphatase Troponin I Total Protein Albumin Globulin Albumin/Globulin Ratio Urine Color Yellow Urine Clarity Clear Urine pH 6.0 Ur Specific [place] 1.010 Urine Protein 100 H Urine Glucose (UA) 1000 H Urine Ketones 5 H Urine Occult Blood 50 H Urine Nitrite Negative Urine Bilirubin Negative Urine Urobilinogen Normal Ur Leukocyte Esterase Negative Urine RBC 0-5 SEEN Urine WBC 0 SEEN Ur Squamous Epith Cells 0 SEEN Urine Bacteria 0 SEEN Urine Mucus 0 SEEN Valproic Acid 26 L Assessment/Plan All Active Problems (Last Reviewed 06/25/18 @ 11:03 by Jess Sow) Atrial fibrillation with rapid ventricular response (Acute) Change in mental status (Acute) Cellulitis (Resolved) Scalp laceration (Resolved) Impressions 1. suspected sepsis due to CAP - He has a low grade temp, 100.5F, with a norm al WBC and a normal diff and he is not coughing or SOB.....I am skeptical about the PNA. Will order a CXR to better evaluate the NIDA. Recheck the lab in the AM. will check a ESR and a CRP. Continue the Levaquin started in the ED and will need to renally dose. Check the urine for Legionella and streptococcal antigens. Respiratory panel. He failed bedside swallow eval so ST consult has been ordered. Could be aspirating. 2. acute encephalopathy - Per my exam he is at his baseline....I have seen him in the past when he has been admitted to the hospital 3. CRF stage 3 4. DM II - continue home medications 5. Dehydration - IV fluids ordered. 6. BPD - valproic acid level is low so will start IV valproic acid until he is approved for a diet by ST 7. TBI 8. CAD with history of STEMI in October 2017 and a drug-eluting stent to the mid LAD at that time. 9. Subtherapeutic valproic acid level 10. Atrial fibrillation 11. Hyperlipidemia 12. Hypertension-order as needed IV antihypertensive until he is able to resume his regular home medications 13. History of gout 14. Osteoarthritis
[2018-12-30 14:04] LABS: Magnesium 1.8 mg/dL (1.6-2.6); Phosphorus 2.3 mg/dL (2.5-4.9)
[2018-12-30 14:06] LABS: Erythrocyte Sedimentation Rate 23 mm/hr (0-20)
[2018-12-30 14:28] LABS: Hemoglobin A1c 8.8 % (4.2-6.3)
[2018-12-30 14:54] LABS: Reflex Lactate? Y
[2018-12-30 14:55] LABS: Bedside Glucose 236 mg/dL (70-110)
[2018-12-30] MEDS: levoFLOXacin IV 750 MG/150 ML BAG 100 MG IV (15:13)
[2018-12-30 15:45] LABS: Lactic Acid 1.8 mmol/L (0.4-2.0)
--- NOTE | 2018-12-30 17:20 | CT_ITS ---
STUDY: CT CHEST WITHOUT CONTRAST REASON FOR EXAM: Male, 68 years old. Pneumonia RADIATION DOSAGE (If Supplied By Facility): CTDIvol = ( 19.69 ) mGy, DLP = ( 669.10 ) mGycm TECHNIQUE: Transaxial imaging was performed without the administration of intravenous contrast material. Individualized dose optimization techniques were used for this CT. COMPARISON: December 30, 2018 chest x-ray. FINDINGS: The lungs are expanded. Probable mild atelectasis at the lingular segment. Bilateral basilar dependent atelectasis. The radiographic opacity on the corresponding chest x-ray likely related to the first rib in the left upper lobe region. Normal heart and pericardium. Normal mediastinum. Normal hilar regions. Normal unenhanced pulmonary arteries. Normal aorta arch and descending thoracic aorta. Degenerative vertebral changes. Old right mid rib fracture. There is diffuse wall thickening of the esophagus requiring further evaluation. CT/Chest without Contrast IMPRESSION: Bilateral mild atelectasis. Diffuse wall thickening of the esophagus requiring for evaluation. Electronically Signed: Prasanna Jessica DO at 19:05 EDT Tel [phone], Service support ,
[2018-12-30 17:36] LABS: Bedside Glucose 228 mg/dL (70-110)
[2018-12-30] MEDS: 0.9% NaCl IVPB Med Flush (250 mL) 15 ML IV (18:08)
[2018-12-30 22:40] LABS: Bedside Glucose 216 mg/dL (70-110)
[2018-12-30] MEDS: Carvedilol 6.25 MG Tablet PO (22:57)
[2018-12-30] MEDS: TICAGRELOR 90 MG TABLET PO (22:57)
[2018-12-30] MEDS: Oxybutynin 5 MG Tablet PO (22:57)
[2018-12-30] MEDS: Heparin Injection (Vial) 5,000 UNIT/ML VIAL 5000 UNIT SC (22:58)
[2018-12-30] MEDS: Insulin Lispro 100 UNIT/ML INSULN.PEN SC (22:58)
[2018-12-30] MEDS: guaiFENesin 1,200 MG Tablet 1200 MG PO (22:59)
[2018-12-30] MEDS: OXcarbazepine 300 MG Tablet PO (22:59)
[2018-12-31] VITALS (10 sets, daily range): BP systolic 120–163; BP diastolic 76–98; PULSE 80–88; RESP 16–18; TEMP 36.8–37.2; O2SAT 95–98
[2018-12-31] MEDS: 0.9% Normal Saline 1,000 ML 150 ML IV ×4 (00:13→19:31)
--- NOTE | 2018-12-31 02:30 | NURSING ---
Addendum entered by Lakesha Christianson 12/31/18 02:45: Staight cathed patient at this time per Dr. Ceballos. Bladder scan showed 710 mls around 0100. 1150 mls of urine yellow and clear removed from bladder at this time. Original Note: Staight cathed patient
[2018-12-31] MEDS: Oxybutynin 5 MG Tablet PO ×3 (06:20→21:52)
[2018-12-31] MEDS: Levothyroxine 100 MCG Tablet PO (06:20)
[2018-12-31] MEDS: Heparin Injection (Vial) 5,000 UNIT/ML VIAL 5000 UNIT SC ×3 (06:20→21:52)
--- NOTE | 2018-12-31 06:30 | NURSING ---
Bladder scanned for 152 mls.
[2018-12-31] MEDS: Insulin Lispro 100 UNIT/ML INSULN.PEN SC ×3 (06:37→22:05)
[2018-12-31 06:41] LABS: Absolute Lymphocyte Count 1.43 X10^3/uL (0.83-4.51); Absolute Neutrophil Count 5.9 X10^3/uL (2.0-7.7); Basophil# 0.02 X10^3/uL; Basophil% 0.2 % (0-1); Eosinophil# 0.06 X10^3/uL; Eosinophils% 0.7 % (0-5); Hematocrit 37.4 % (40-54); Lymphocyte # 1.43 X10^3/ul (4.0); Lymphocyte % 16.3 % (19-41); Mean Corp Hgb Conc 32.1 g/dL (32-36); Mean Corpuscular Hgb 31.3 pg (27.0-32.0); Mean Corpuscular Volume 97.4 fL (80-94); Mean Platelet Vol. 10.4 fl (6.2-12.0); Monocyte# 1.31 X10^3/uL; NRBC Flagged by Analyzer 0 % (0-5); Neutrophil # 5.86 X10^3/uL (2.7-7.7); POSITIVE MORPHOLOGY YES; Platelet Count 144 K/mm3 (150-450); RBC Distribution Width CV 13.5 % (11.6-14.6); RBC Distribution Width SD 48.3 fl (35.1-43.9); Red Blood Count 3.84 M/mm3 (4.6-6.2); White Blood Count 8.8 K/mm3 (4.4-11.0)
[2018-12-31 06:46] LABS: Differential Indicated SCAN CRITERIA MET
[2018-12-31 06:50] LABS: Bedside Glucose 178 mg/dL (70-110)
[2018-12-31 07:01] LABS: Anion Gap 9 (5-15); BUN 38 mg/dL (7-18); BUN/Creat Ratio 19.8 RATIO (10-20); Calcium,Total 8.2 mg/dL (8.5-10.1); Chloride 115 mmol/L (98-107); Creatinine, Serum 1.92 mg/dL (0.70-1.30); EST Glomerular Filtration Rate 37 mL/min (>60); Est Glom Filt Rate - Afr Amer 45 mL/min (>60); Estimated Creatinine Clearance 34.64 ml/min; Glucose 177 mg/dL (74-106); Magnesium 1.8 mg/dL (1.6-2.6); Phosphorus 2.2 mg/dL (2.5-4.9); Potassium 4.2 mmol/L (3.5-5.1); Sodium Level 144 mmol/L (136-145)
[2018-12-31] MEDS: Multivitamins,Therapeutic Tablet 1 TABLET PO (07:18)
[2018-12-31] MEDS: Gabapentin 600 MG Tablet PO ×2 (07:18→18:43)
[2018-12-31] MEDS: Aspirin E.C. 81 MG Tablet PO (07:18)
[2018-12-31] MEDS: Ferrous Sulfate 325 MG Tablet PO (07:18)
[2018-12-31] MEDS: TICAGRELOR 90 MG TABLET PO ×2 (09:56→21:52)
[2018-12-31] MEDS: Meloxicam 15 MG Tablet PO (09:57)
[2018-12-31] MEDS: Carvedilol 6.25 MG Tablet PO ×2 (09:57→21:53)
[2018-12-31] MEDS: Erythromycin Base 1 OPTH.TUBE 1 APPLIC EACH EYE (09:57)
[2018-12-31] MEDS: guaiFENesin 1,200 MG Tablet 1200 MG PO ×2 (09:57→21:52)
[2018-12-31] MEDS: OXcarbazepine 300 MG Tablet PO ×2 (09:59→21:52)
--- NOTE | 2018-12-31 11:15 | CASEMGMT ---
Addendum entered by Chiquis Barrios 12/31/18 16:10: 1125: Call placed to Em, pt's sister, per pt's request. Em made aware that pt is requesting to return home w/[facility]. Em voiced much concerns w/pt returning home, stating, I think he more than HHC. She states pt has been doing pretty bad @ home, stating that he has been paranoid lately and states, He's not been together, not himself. She states, We need help, stating that pt has not been taking his medication and has been very mean to me, constantly arguing and undressing himself in front of me and stated, I'm afraid. Em states she been finding pt placing things in random places, and that she has found his insulin needles in [facility]. Em states that she plans on coming into hospital today. She was made aware that SW will be available to talk with her today to discuss her concerns. RN CM asked Em to let staff know when she arrives so SW can be made aware to come talk with her. She voices appreciation. Original Note: RN CM BROKERAGE OFFICE MANAGER CM to room to meet with patient for initial transition planning/care coordination assessment. RN CM introduced self and role at [facility]. Pt voices understanding and consents to assessment at this time. Pt resting in bed. Pt is A/O at this time, calm. Pt did become tearful on/off during assessment, but then would be cheerful and talkative, giving very detailed answers. Care providers, pharmacy, and demographics verified at this time. PCP: [facility] Specialists: Dr Loaiza--psychiatrist @ the [facility] Preferred Pharmacy: [facility] Insurance: [facility] and [employer] Prescription Benefit: Yes Living Will/HPOA: Pt does not currently have LW/HCPOA. (General POA papers found on file @ [facility], but no record of Healthcare POA) LNOK: 2 sisters, Em and Ann Marie Living Arrangements: Lives with Em in 2 story home w/2 steps to enter. Pt states he stays mostly on the main floor. Transportation: Sisters or [employer]. Denies transportation concerns. DME: States has the following DME: shower chair, quad cane, glucometer, hand held shower. Pt states no need for further DME at this time. HHC/SNF: No history of SNF. Has had [facility] in the past. Pt states he does not want to go to a SNF @ D/C, stating he wishes to return home w/HHC. Given list of HHC agencies and pt states he prefers [facility]. Pt wishes to return home and states has no concerns with going home at time of discharge. CM to follow for discharge planning/needs. Pt voices no further concerns/needs at this time. Advised pt to ask for CM if any further questions/concerns/needs arise. Voices understanding. PLAN: Pt prefers to [facility] w/[facility], but he asks for RN CM to call and talk to his sister, Em. Marc BSN [place]
[2018-12-31 11:51] LABS: Bedside Glucose 167 mg/dL (70-110)
--- NOTE | 2018-12-31 13:04 | CASEMGMT ---
Social Work Referral received from Chiquis SPRAGUE, CM. Pt two sisters, Em and Ann Marie, here and requesting to speak with SW. SW met with sisters and introduced self and role. Pt shares a home with sister Em. Pt lives on the first floor and Em on the second however Em states they are together most of the time. Em stating pt has had changes in behavior over the last several weeks. Pt is paranoid and hallucinating stating people are outside the home, trying to break in however, no one is there. Pt has called police over this and police come and find no one present. Pt has been able to care for self, but recently has not been completing care needs (bathing, shaving) in an adequate manor. Pt sister has found dog food in her food along with the caps to syringes pt uses for insulin injections in food. Pt has been able to take medications independently (he does receive bubble pack to assist) but recently sister has found meds on floor throughout the house at different times. Pt also came to basement where sister was doing laundry and pt had no clothes on. These behaviors are not normal for this pt and sisters expressing concern. Em also stating pt is now yelling at her often and unkind which is also not his baseline behavior. [facility]. Pt last had an appointment on 12/23 and has next appointment on 01/11. Per pt sisters, Dr. Flores is working on decreasing Depakote. Family is uncertain who else pt sees at the [facility]. Phone call to [facility] and Peggy Parham is pt Fill Plant Operator and Ruthy Velarde is pt counselor. Family stating pt has no other community services. Referral had been made to [facility] on prior admission however, Em not able to state if this had been started. Phone call to Hang at [facility] and pt had been started in the program at that time, however he was later d/c and had inappropriate behaviors toward staff. Pt sisters inquiring if pt would benefit from psychiatric placement to stablize pt. Sisters state he was in [facility] several years ago and this was very helpful for the pt. SW will speak with pt physician regarding conversation with sisters. PITO Aponte
--- NOTE | 2018-12-31 13:53 | CASEMGMT ---
Pt has a financial POA but not a living will or health care POA. Rack card provided to pt sister to call for an appointment if pt is able to complete paperwork at a later date. PITO Aponte
[2018-12-31] MEDS: Acetaminophen 325 MG Tablet 650 MG PO (14:25)
--- NOTE | 2018-12-31 16:59 | PCM.PROGNOTE ---
Patient Problems: Active and Suspected Problems (Last Reviewed 12/30/18 @ 17:36 by Ragini Sutton DO) Atrial fibrillation with rapid ventricular response (Acute) Community acquired pneumonia (Suspected) Sepsis (Suspected) Subjective: All events of the past 24 hours have been reviewed. He is afebrile for the past 24 hours. Vital signs are stable. He is maintaining an oxygen saturation of 95 to 98% on room air with no tachypnea. Imaging and lab was personally reviewed. White blood cell count is normal at 8.8 with an unremarkable differential. Hemoglobin dropped to 12.0 from 15.1 with IV fluids. Platelets are 144,000 today, down from 200,000 possibly secondary to heparin. Creatinine today is 1.92, down from 2.28 at admission with hydration. Blood sugars are adequately controlled today. Legionella and streptococcal antigens in the urine are negative. Urine culture exhibits no growth. Respiratory panel and influenza were negative. Blood cultures are pending. Please see the note from the social organization professor today regarding the bizarre behavior this patient has had over the preceding 2 to 3 weeks. He passed his swallowing evaluation with speech therapy yesterday and is currently on a mechanical soft/ground diet with thin liquids. He is to take his medications whole with pur?es and avoid straws. He needs to have supervision and must be seated upright at [address] scan of the chest showed no evidence of infiltrate. Levaquin was discontinued. - Physical Exam General: Alert, - - has not been aggressive but is very forgetful and he is paranoid.......saying I hate him and I won't come in to see him. HEENT: Atraumatic Oral: Dry Mucosa - but better than yesterday Neck: Supple, No Nuchal Rigidity, Trachea Midline Lungs: Clear to auscultation Cardiovascular: Normal S1, Normal S2, Irregular Rate, No Gallop, - - no tachycardic Abdomen: Bowel Sounds Present, Soft, Non Tender, Non-Distended Extremities: No edema Neurological: Cranial nerves II-XII grossly intact, Neuro grossly intact Psych/Mental Status: Irrational Behavior - at home.....taking his clothes off, not taking his pills, mixing dog food with the people food......sister finding syringes and caps from syringes in food., Restless, - - labile, crying interrmittently Vital Signs Temp Pulse Resp BP Pulse Ox 98.9 F 83 16 120/83 H 98 12/31/18 15:56 12/31/18 15:56 12/31/18 15:56 12/31/18 15:56 12/31/18 15:56 Oxygen Delivery Method Room Air Weight: 195 lb 8.8 oz Body Mass Index (BMI) 28.9 Finger Stick Blood Glucose 152 Intake and Output for Last 24 Hours 12/29/18 12/30/18 12/31/18 23:59 23:59 23:59 Intake Total 2412.5 / 2412.5 2930.0 / 2930.0 Output Total 1500 / 1500 1650 / 1650 Balance 912.5 / 912.5 1280.0 / 1280.0 Microbiology Past 72 Hours 12/30/18 11:53 Urine Culture - Preliminary Urine, Catheterized Culture exhibits no growth. 12/30/18 13:56 Respiratory Panel (PCR) - Final Mucosa - Nose 12/30/18 18:25 Streptococcus pneumoniae Antigen (M - Final Urine Catheter - Catheter 12/30/18 18:25 Legionella Antigen - Final Urine Catheter - Catheter 12/30/18 13:56 Influenza Types A,B Direct FA ([facility]) - Final Mucosa - Nose Laboratory Tests Past 24 Hrs 12/31/18 12/31/18 05:56 05:56 WBC 8.8 RBC 3.84 L Hgb 12.0 L Hct 37.4 L MCV 97.4 H MCH 31.3 MCHC 32.1 RDW Std Deviation 48.3 H RDW Coeff of Shashank 13.5 Plt Count 144 L MPV 10.4 Immature Gran % (Auto) 0.800 Neut % (Auto) 67.0 Lymph % (Auto) 16.3 L Mcclain % (Auto) 15.0 H Eos % (Auto) 0.7 Baso % (Auto) 0.2 Absolute Neuts (auto) 5.9 Absolute Lymphs (auto) 1.43 Nucleated RBC % 0 Sodium 144 Potassium 4.2 Chloride 115 H Carbon Dioxide 20.0 L Anion Gap 9 BUN 38 H Creatinine 1.92 H Estim Creat Clear Calc 34.64 Est GFR (MDRD) Af Amer 45 L Est GFR (MDRD) Non-Af 37 L BUN/Creatinine Ratio 19.8 Glucose 177 H Calcium 8.2 L Phosphorus 2.2 L Magnesium 1.8 POC Glucose 12/31/18 12/31/18 12/30/18 11:44 06:36 22:35 POC Glucose 167 H 178 H 216 H 12/30/18 17:28 POC Glucose 228 H Medical Necessity - Tobacco Use Smoking Status: Never smoker Tobacco Use: Non-smoker Assessment/Plan All Active Problems (Last Reviewed 12/30/18 @ 17:36 by Ragini Sutton, ) Atrial fibrillation with rapid ventricular response (Acute) Change in mental status (Acute) Cellulitis (Resolved) Scalp laceration (Resolved) Impressions 1. PNA - ruled out. Lactic acidosis due to dehydration...resolved with fluids. WBC and diff normal today. 2. he is decompensating and likely needs admitted to a psychiatric facility. He is medically stable. Crisis counsellor called to evaluate. 3. CRF stage 3 - creat is improving with hydration and MM are more moist 4. DM II - continue home medications....Not adequately controlled because the HGBA1C is 8.8 but, BS's in the hospital have been adquately controlled 5. Dehydration - Continue the IV fluids for now 6. BPD - valproic acid level is low so will start IV valproic acid until he is approved for a diet by ST 7. TBI 8. CAD with history of STEMI in October 2017 and a drug-eluting stent to the mid LAD at that time. 9. Subtherapeutic valproic acid level 10. Atrial fibrillation 11. Hyperlipidemia 12. Hypertension-order as needed IV antihypertensive until he is able to resume his regular home medications 13. History of gout 14. Osteoarthritis Await the crisis evaluation. Code Visit Inpatient E&M: 83995 Subs Hosp L2
[2018-12-31 17:25] LABS: Bedside Glucose 150 mg/dL (70-110)
[2018-12-31] MEDS: Divalproex Sodium 250 MG Tablet 1500 MG PO (18:42)
[2018-12-31 20:51] LABS: Bedside Glucose 139 mg/dL (70-110)
[2018-12-31 22:06] LABS: Bedside Glucose 185 mg/dL (70-110)
== END 2018-12-31 22:25 | DRG 641 ==
LOC: ED 12:43 → PCU 13:20
PROVIDERS: Admitting Provider Internal Medicine; Emergency Provider Emergency Medicine; Family Provider Family Medicine; PCP Family Medicine; Referring Provider Internal Medicine; Visit Provider Internal Medicine
DX: E86.0 Dehydration (principal); G93.40 Encephalopathy, unspecified; R47.01 Aphasia; I48.20 Chronic atrial fibrillation, unspecified; E87.2 Acidosis; I48.0 Paroxysmal atrial fibrillation; N18.3 Chronic kidney disease, stage 3 (moderate); E11.22 Type 2 diabetes mellitus with diabetic chronic kidney disease; I25.10 Atherosclerotic heart disease of native coronary artery without angina pectoris; I12.9 Hypertensive chronic kidney disease with stage 1 through stage 4 chronic kidney disease, or unspecified chronic kidney disease; E11.40 Type 2 diabetes mellitus with diabetic neuropathy, unspecified; E78.5 Hyperlipidemia, unspecified; M19.90 Unspecified osteoarthritis, unspecified site; I25.2 Old myocardial infarction; M1A.9XX0 Chronic gout, unspecified, without tophus (tophi); F31.9 Bipolar disorder, unspecified; Z87.820 Personal history of traumatic brain injury; Z95.5 Presence of coronary angioplasty implant and graft
CPT/HCPCS: 36415; 70450; 71045; 71250; 80048; 80053; 80164; 81001; 82962; 83036; 83605; 83735; 84100; 84484; 85025; 85610; 85652; 85730; 86141; 87040; 87086; 87449; 87633; 87804; 92526; 92610; 93005; 97802; 99285; J7030; J7050; A4216

== ENCOUNTER → 2019-02-04 14:38 | Outpatient (CLI) | payer MEDICARE, MEDICAID, SELFPAY ==
[2017-11-19 09:37] VITALS: BMI 31.8
[2019-02-03 14:43] VITALS: BMI 28.5
[2019-02-04 15:58] LABS: Absolute Lymphocyte Count 1.77 X10^3/uL (0.83-4.51); Absolute Neutrophil Count 4.5 X10^3/uL (2.0-7.7); Basophil# 0.03 X10^3/uL; Basophil% 0.4 % (0-1); Eosinophil# 0.23 X10^3/uL; Eosinophils% 3.1 % (0-5); Hematocrit 38.3 % (40-54); Hemoglobin 12.7 g/dL (13.0-16.5); Lymphocyte # 1.77 X10^3/ul (4.0); Mean Corp Hgb Conc 33.2 g/dL (32-36); Mean Corpuscular Hgb 31.3 pg (27.0-32.0); Mean Corpuscular Volume 94.3 fL (80-94); Mean Platelet Vol. 10.4 fl (6.2-12.0); Monocyte# 0.83 X10^3/uL; Monocyte% 11.3 % (0-10); NRBC Flagged by Analyzer 0 % (0-5); Neutrophil # 4.48 X10^3/uL (2.7-7.7); Neutrophil % 60.9 % (47-70); Platelet Count 252 K/mm3 (150-450); RBC Distribution Width CV 11.9 % (11.6-14.6); RBC Distribution Width SD 41.4 fl (35.1-43.9); Red Blood Count 4.06 M/mm3 (4.6-6.2); White Blood Count 7.4 K/mm3 (4.4-11.0)
[2019-02-04 16:25] LABS: Anion Gap 8 (5-15); BUN 34 mg/dL (7-18); BUN/Creat Ratio 14.8 RATIO (10-20); Calcium,Total 9.6 mg/dL (8.5-10.1); Chloride 104 mmol/L (98-107); Creatinine, Serum 2.29 mg/dL (0.70-1.30); EST Glomerular Filtration Rate 30 mL/min (>60); Est Glom Filt Rate - Afr Amer 37 mL/min (>60); Glucose 266 mg/dL (74-106); Magnesium 2.1 mg/dL (1.6-2.6); Sodium Level 137 mmol/L (136-145); Thyroid Stim Hormone (TSH) 0.65 uIU/mL (0.358-3.74)
[2019-02-04 16:33] LABS: BNP,B-Type NATRIURETIC PEPTIDE 172.2 pg/mL (0-100)
== END ==
PROVIDERS: Family Provider Family Medicine; PCP Family Medicine; Referring Provider Physician Assistant Medical; Visit Provider Physician Assistant Medical
DX: F03.90 Unspecified dementia, unspecified severity, without behavioral disturbance, psychotic disturbance, mood disturbance, and anxiety (principal); Z79.899 Other long term (current) drug therapy; F19.10 Other psychoactive substance abuse, uncomplicated; R53.83 Other fatigue
CPT/HCPCS: 36415; 80048; 82140; 83735; 83880; 84443; 85025

== ENCOUNTER 2019-03-31 10:12 | Emergency (ER) | payer MEDICARE, SELFPAY ==
[2017-11-19 09:37] VITALS: BMI 31.8
[2019-02-03 14:43] VITALS: BMI 28.5
[2019-03-31 10:14] VITALS: BP 146/69; PULSE 81; RESP 18; TEMP 36.4; O2SAT 98; BMI 28.5
--- NOTE | 2019-03-31 11:09 | EKG12_ITS ---
Test Reason : ANXIETY Blood Pressure : / mmHG Vent. Rate : 051 BPM Atrial Rate : 277 BPM P-R Int : 000 ms QRS Dur : 094 ms QT Int : 400 ms P-R-T Axes : 000 -28 053 degrees QTc Int : 368 ms Atrial fibrillation with slow ventricular response Abnormal ECG Confirmed by SAMMI JASON, HERNANDO ([id number]), senior editor TERESA BOWEN ([id number]) on 04/01/2019 10:35:53 AM Referred By: IKE/REGINE Confirmed By:NARDA CHAPA MD
--- NOTE | 2019-03-31 11:12 | ED.DCSUM_ITS ---
History of Present Illness Chief Complaint: Anxiety Informant: Patient, Family Onset: Month(s) Context: Gradual Onset Timing: Intermittent Narrative: Patient is a 68-year-old male with history of schizoaffective disorder, bipolar disorder, coronary artery disease, hypertension and insulin-dependent diabetes mellitus presenting for panic attacks. Patient states he has had worsening episodes over the past 5 months or so but they have been significantly worse for the past week. Patient states he has episodes where he feels short of breath, wheezing and his heart feels funny. He has a hard time describing the further sensations. They last anywhere between a minute to a couple minutes and go on for hours. There does not seem to be any aggravating or alleviating factors. Patient has been checking his blood pressure and is range anywhere between 97 systolic to 160 systolic. His gas operations superintendent, Dr. Nguyen did have him decrease his Norvasc from 10 mg to 5 mg daily. He also cut off caffeine per the recommendation of his PCP. Patient does see a psychiatrist and receives monthly injections of Abilify. His last injection was 01/13/2019. Patient was admitted to psychiatric [facility] in and December. At that time his switch of Depakote to Abilify and he was found to have elevated ammonia level secondary to the Depakote. Patient has been using albuterol inhaler for his wheezing. He denies any history of COPD. He denies any other complaints at this time. Past Medical History - Allergies and Home Meds Allergies/Adverse Reactions: Allergies atorvastatin [From Lipitor] Allergy (Verified 03/31/19 10:13) Unknown Penicillins Allergy (Verified 03/31/19 10:13) Unknown lisinopril Adverse Reaction (Unknown, Verified 03/31/19 10:13) unknown codeine Adverse Reaction (Verified 03/31/19 10:13) Upset Stomach doxycycline Adverse Reaction (Verified 03/31/19 10:13) Other nickel Adverse Reaction (Verified 03/31/19 10:13) Rash LYCOPEEN Adverse Reaction (Uncoded 03/31/19 10:13) Other Primary Care Physician: Issa Trinidad MD [Primary Care Provider] - Past Medical History: - - Anxiety, schizoaffective disorder, bipolar disorder, insulin-dependent diabetes mellitus, coronary artery disease Surgical History: - - Cardiac catheterization, T+A, R cataract, L shoulder surgery, R TKR. Smoking Status: Never smoker - Family History Maternal Family History: Family History (Last Reviewed 12/30/18 @ 17:37 by Ragini Sutton DO) Father Arthritis Bleeding disorder Heart disease Hypertension Mother Hypertension Family History: Reports: - Paternal Family History: Family History (Last Reviewed 12/30/18 @ 17:37 by Ragini Sutton DO) Father Arthritis Bleeding disorder Heart disease Hypertension Mother Hypertension Family History: Reports: - Review of Systems General: Denies: Chills, Fever, Sweats Eyes: Denies: Visual changes - bilaterally, Diplopia ENT: Denies: Rhinorrhea, Sore throat Cardiovascular: Reports: Palpitations. Denies: Chest pain Respiratory: Reports: Cough. Denies: Dyspnea, Dyspnea on exertion Gastrointestinal: Denies: Abdominal pain, Nausea, Vomiting, Diarrhea, Melena, Hematochezia Genitourinary: Denies: Dysuria, Hematuria, Frequency Musculoskeletal: Denies: Back pain, Extremity Pain Skin: Denies: Rash, Wounds Neurological: Denies: Headache, Weakness, Numbness Psych: Reports: Anxiety. Denies: Depression Physical Exam Vital Signs/Narrative: Vital Signs Temp Pulse Resp BP Pulse Ox 03/31/19 10:14 97.5 F L 81 18 146/69 H 98 Inital Vital Signs reviewed: Yes General: Well nourished, Well developed, No Acute Distress Head: Normocephalic, Atraumatic Eyes: Perrl, EOMI ENT: Moist mucous membranes, No rhinorrhea Neck: Supple, Nontender Cardiovascular: Regular rate, Regular rhythm, No murmurs Respiratory: No distress, CTA bilaterally, Chest nontender. Negative for: Wheezing Abdomen: Soft, Nontender, Nondistended, Normal bowel sounds Back: Nontender, Normal Inspection Extremities: Nontender, No edema Skin: Normal color, No rash Neurological: Alert, Oriented x3, Cranial nerves II-XII grossly intact, Normal Strength, Normal Sensation Psychological: Normal affect, Normal Mood. Negative for: Depressed, Agitated Diagnostic/Tx/Re-eval Chest X-Ray - ED: 2 View, Read by ED Physician, Read by Radiologist, No Acute Disease Clinical Impression(s) from Imaging Studies Chest X-Ray 03/31/19 11:40 IMPRESSION: No acute cardiopulmonary findings Electronically Signed: Tony Fabian DO at 11:59 EST Tel , Service support , Laboratory Data 03/31/19 03/31/19 03/31/19 11:26 11:26 13:49 WBC 6.5 RBC 3.90 L Hgb 12.1 L Hct 34.7 L MCV 89.0 MCH 31.0 MCHC 34.9 RDW Std Deviation 37.2 RDW Coeff of Shashank 11.6 Plt Count 251 MPV 10.1 Immature Gran % (Auto) 0.500 Neut % (Auto) 66.4 Lymph % (Auto) 20.0 Beltrami % (Auto) 9.2 Eos % (Auto) 3.4 Baso % (Auto) 0.5 Absolute Neuts (auto) 4.4 Absolute Lymphs (auto) 1.31 Nucleated RBC % 0 Sodium 133 L Potassium 3.9 Chloride 100 Carbon Dioxide 27.0 Anion Gap 6 BUN 57 H Creatinine 2.23 H Estim Creat Clear Calc 30.82 Est GFR (MDRD) Af Amer 38 L Est GFR (MDRD) Non-Af 31 L BUN/Creatinine Ratio 25.6 H Glucose 441 H Calcium 9.8 Troponin I < 0.015 TSH 1.07 POC Glucose 380 H - Rhythm Strip Rhythm Strip: A-fib Rate: 51 Ectopy: None - EKG Initial EKG Interpretation: Atrial Fibrillation, - - Atrial fibrillation at a rate of 51 QRS 94 QTc 368 Left axis deviation - Medical Decision Making Patient is evaluated for panic attacks. Recently been worsening over the past few months. He does have cardiac risk factors and medical clearance is performed. His EKG shows A. fib which is rate controlled and chronic for him. His troponin is normal. His CBC is at his baseline and his BMP is remarkable for hyperglycemia. Patient does have an elevated creatinine but this is his baseline. He has a normal anion gap. Patient does have a history of diabetes. Discussed with his gas operations superintendent, Dr. Nguyen, who is quite familiar with him. He does not feel that patient needs a cardiac evaluation for these panic attacks. Patient is given IV fluids and then 6 units of insulin for his hyperglycemia in the emergency room. He is discharged to follow-up with his PCP for better diabetic management. He is evaluated by social work to ensure that he has proper psychiatric follow-up. He does. He has appointment later this week. I feel that patient is stable for outpatient follow-up. He has a sister who lives with him who can help keep an eye on him. Patient is counseled on signs and symptoms requiring return to the emergency room. Patient verbalizes agreement and understand this plan. Patient discharged home in stable and improved condition. ED Disposition - Plan for ED Patient: Disposition: Home or Assisted Living Diagnosis: Anxiety, Hyperglycemia due to type 2 diabetes mellitus Instructions: Anxiety Reaction Referrals: Issa Trinidad MD [Primary Care Provider] - Additional Instructions: Your cardiac evaluation was normal today. Likely due to her panic attacks let ter giving you trouble. At this time you do not need to be admitted to the hospital. Please make sure you follow-up with your counselor as well as her psychiatrist. Please follow-up with your primary care doctor for further adjustment of your diabetic medications. Your blood sugar was a little high today.
[2019-03-31 11:35] LABS: Absolute Lymphocyte Count 1.31 X10^3/uL (0.83-4.51); Absolute Neutrophil Count 4.4 X10^3/uL (2.0-7.7); Basophil# 0.03 X10^3/uL; Basophil% 0.5 % (0-1); Eosinophil# 0.22 X10^3/uL; Eosinophils% 3.4 % (0-5); Hematocrit 34.7 % (40-54); Hemoglobin 12.1 g/dL (13.0-16.5); Lymphocyte # 1.31 X10^3/ul (4.0); Mean Corp Hgb Conc 34.9 g/dL (32-36); Mean Platelet Vol. 10.1 fl (6.2-12.0); Monocyte% 9.2 % (0-10); NRBC Flagged by Analyzer 0 % (0-5); Neutrophil # 4.35 X10^3/uL (2.7-7.7); Neutrophil % 66.4 % (47-70); Platelet Count 251 K/mm3 (150-450); RBC Distribution Width CV 11.6 % (11.6-14.6); RBC Distribution Width SD 37.2 fl (35.1-43.9); White Blood Count 6.5 K/mm3 (4.4-11.0)
--- NOTE | 2019-03-31 11:40 | RAD_ITS ---
STUDY: X-RAY CHEST REASON FOR EXAM: Male, 68 years old. COUGH AND PANIC ATTACKS TECHNIQUE: PA and lateral views of the chest. COMPARISON: December 30, 2018. FINDINGS: Cardiac silhouette unremarkable. Pulmonary vascularity unremarkable. Aorta calcified. No focal patchy airspace opacities. No pleural effusions. Left basilar atelectasis/scarring. Upper abdomen unremarkable. Osseous structures demineralized with degenerative features. Scoliosis. No pneumothorax. RAD/Chest PA and Lateral IMPRESSION: No acute cardiopulmonary findings Electronically Signed: Tony Fabian DO at 11:59 EST Tel , Service support ,
[2019-03-31 11:55] LABS: BUN 57 mg/dL (7-18); BUN/Creat Ratio 25.6 RATIO (10-20); Calcium,Total 9.8 mg/dL (8.5-10.1); Chloride 100 mmol/L (98-107); Creatinine, Serum 2.23 mg/dL (0.70-1.30); EST Glomerular Filtration Rate 31 mL/min (>60); Est Glom Filt Rate - Afr Amer 38 mL/min (>60); Estimated Creatinine Clearance 30.82 ml/min; Glucose 441 mg/dL (74-106); Potassium 3.9 mmol/L (3.5-5.1); Sodium Level 133 mmol/L (136-145)
[2019-03-31 11:56] LABS: Anion Gap 6 (5-15); Thyroid Stim Hormone (TSH) 1.07 uIU/mL (0.358-3.74)
[2019-03-31 12:03] VITALS: RESP 18
[2019-03-31] MEDS: 0.9% Normal Saline 1,000 ML 999 ML IV (13:00)
--- NOTE | 2019-03-31 13:00 | CM.ED ---
SOCIAL WORK INFORMANT: DR. TUCKER REASON FOR REFERRAL: F/U WITH THE [facility] DISCUSSED CASE WITH DR. TUCKER. PATIENT FOLLOWS WITH THE [facility]. PATIENT PRESENTS TODAY WITH INCREASED ANXIETY/PANIC ATTACKS. PATIENT HAS BEEN IN CONTACT WITH THE [facility] AND HAS REQUESTED ATIV[facility]. PER ALEX AT THE [facility], PATIENT IS NOT GIVEN ATIVAN D/T FALL RISK. PATIENT HAS APPOINTMENT WITH PSYCHIATRIST ON 04/19. PATIENT SEES COUNSELOR ON 04/06 AT 4PM. ALEX TO UPDATE PATIENT'S DRESSAGE JUDGE, CHELE AND REQUEST CHELE FOLLOW UP WITH PATIENT. NO FURTHER NEEDS AT THIS TIME. PLAN: HOME WITH FOLLOW UP AT THE [facility]. Tami LUNDY MSW, FLARING MACHINE OPERATOR.
[2019-03-31 13:56] LABS: Bedside Glucose 380 mg/dL (70-110)
[2019-03-31 14:09] VITALS: PULSE 70; RESP 16; O2SAT 100
[2019-03-31] MEDS: Insulin Lispro 100 UNIT/ML INSULN.PEN 6 UNIT SC (14:10)
== END 2019-03-31 14:52 | disposition home or self-care (01) ==
PROVIDERS: Emergency Provider Emergency Medicine; Family Provider Family Medicine; PCP Family Medicine
DX: F41.0 Panic disorder [episodic paroxysmal anxiety] (principal); E11.65 Type 2 diabetes mellitus with hyperglycemia; R05 Cough; I48.20 Chronic atrial fibrillation, unspecified; F25.9 Schizoaffective disorder, unspecified; F31.9 Bipolar disorder, unspecified; I25.10 Atherosclerotic heart disease of native coronary artery without angina pectoris; I10 Essential (primary) hypertension; Z79.4 Long term (current) use of insulin; Z79.82 Long term (current) use of aspirin; Z79.899 Other long term (current) drug therapy
CPT/HCPCS: 71046; 80048; 82962; 84443; 84484; 85025; 93005; 96360; 96361; 99284; J7030; A4216

== ENCOUNTER 2019-04-17 17:05 | Emergency (ER) | payer MEDICARE, SELFPAY ==
[2017-11-19 09:37] VITALS: BMI 31.8
[2019-04-17 17:07] VITALS: BP 182/100; PULSE 53; RESP 16; TEMP 36.9; O2SAT 99; BMI 30.4
--- NOTE | 2019-04-17 17:33 | ED.VISSUMM ---
- ER Visit Summary Date of Service: 04/17/19 Chief Complaint: Patient is out of his Lasix and wants it really written due to recurrent leg swelling History of Present Illness: The patient is a 68 M CAD, SC, CHF, diabetes, cardiac stents, psychiatric disorder including bipolar, diastolic dysfunction. Patient states that he was recently diagnosed with congestive heart failure. Was started on Lasix. He is now out of medication and swelling is returned. He try to go to the [facility] they were close and said he could not get his prescription refilled. He is here just to get his prescription refilled. He does not want any other work-up. He denies being short of breath currently. Physical Examination: Older male no acute distress vital signs are stable afebrile. Pulse ox 90% room air no signs of hypoxia. H EENT exam unremarkable. Neck nontender no JVD. Lungs clear to auscultation bilaterally. Heart regular rhythm rate about 55 no murmur. Chest were nontender. Abdomen soft nontender. Remedies moves all 4. Neurovascular intact. He has trace edema in both lower extremities. Dorsi plantarflexion intact. Neurologically is awake alert with no focal motor deficits. Test Results: Patient did not want any labs done. Emergency Department Course and Treatment: I will be written for his Lasix prescription 20 mg to be taken at least once a day and twice as needed. He will be written for 30 with no refill. Treatment Plan: Follow-up with his primary care physician's office for reevaluation and renewal of prescriptions. Disposition: Discharge Impression: Bilateral lower extremity edema secondary to CHF Medication refill of Lasix This note was generated with Mahalo dictation software. It may contain incorrect words, spelling, and punctuation that were not noted in review of the chart prior to signing ED Disposition - Plan for ED Patient: Referrals: Issa Trinidad MD [Primary Care Provider] -
--- NOTE | 2019-04-17 17:35 | ED.DEP ---
ED Disposition - Plan for ED Patient: Disposition: Home or Assisted Living Instructions: ED Peripheral Edema, Bilateral Prescriptions: Furosemide [Lasix] 20 mg PO BIDLX.TCU #60 tab Prescription Printed Referrals: Issa Trinidad MD [Primary Care Provider] - 1 Week Additional Instructions: Use your Lasix once a day and twice a day if you are having swelling. Follow-up with your doctor and get your medications refilled. Return to the emergency department if you are feeling worse.
--- NOTE | 2019-05-11 13:19 | CM.ED ---
Social Work Telephone call to follow-up with patient per patient call the hospital gate operator with concerns about having needs met in the community. Patient did not answer the phone, voicemail was left. After completing chart review it can be noted that patient lives with patient sister and is active with the counseling center including a psychiatrist and manager case, Peggy. Telephone call to Peggy PINK. This social work coordinator leaving voicemail for Peggy to see if further follow-up with patient in the community would be possible to address patient concerns/questions. Encouraged Peggy to call this social work coordinator back with any questions. Nicol BOTELLO, HELEN
--- NOTE | 2019-05-11 14:27 | CM.ED ---
Social work Telephone call from patient. Patient stating everything is fine now. Patient stating to have groceries and food. Patient stating to have spent the past [address] Dsouza and some medications are going to be changed around for patient. Patient stating that next appointment with Dr. Goodrich with the counseling center will be this coming Friday. Patient denies any concerns for resources or needs in the community. Nicol BOTELLO, HELEN
== END 2019-04-17 18:07 | disposition home or self-care (01) ==
LOC: ED 17:43
PROVIDERS: Emergency Provider Emergency Medicine; PCP Family Medicine; Referring Provider Family Medicine
DX: Z76.0 Encounter for issue of repeat prescription (principal); I50.9 Heart failure, unspecified; E11.9 Type 2 diabetes mellitus without complications; I25.10 Atherosclerotic heart disease of native coronary artery without angina pectoris; Z95.5 Presence of coronary angioplasty implant and graft; F31.9 Bipolar disorder, unspecified
CPT/HCPCS: 99282

== ENCOUNTER 2019-05-15 16:13 | Emergency (ER) | payer MEDICARE, SELFPAY ==
[2017-11-19 09:37] VITALS: BMI 31.8
[2019-05-15 16:15] VITALS: BP 98/64; PULSE 65; RESP 18; TEMP 36.9; O2SAT 97; BMI 29.7
--- NOTE | 2019-05-15 16:33 | EKG12_ITS ---
Test Reason : Blood Pressure : / mmHG Vent. Rate : 049 BPM Atrial Rate : 159 BPM P-R Int : 000 ms QRS Dur : 102 ms QT Int : 430 ms P-R-T Axes : 000 -22 083 degrees QTc Int : 388 ms Atrial fibrillation with slow ventricular response Nonspecific ST and T wave abnormality Abnormal ECG Confirmed by SAMMI JASON, HERNANDO ([id number]), editor greeting card VENTURA FINK ([id number]) on 05/17/2019 2:14:58 PM Referred By: Confirmed By:NARDA CHAPA MD
--- NOTE | 2019-05-15 16:33 | RAD_ITS ---
STUDY: X-RAY CHEST REASON FOR EXAM: Male, 68 years old. CHEST PAIN LEFT SIDE X 1 WEEK, CONFUSION, DIZZINESS TECHNIQUE: AP COMPARISON: 03/31/2019 FINDINGS: EKG leads project over the chest. The lungs are clear and expanded. There is no demonstrated pleural abnormality. Normal size heart. Normal mediastinum and prerna. Normal visualized pulmonary arteries. There is atherosclerotic tortuosity of the aortic arch and descending thoracic aorta. There are diffuse degenerative changes of the visualized thoracic spine. There is degenerative osteoarthritis of the bilateral shoulders. There is no demonstrated abnormality of the visualized soft tissue structures of the upper abdomen. RAD/Chest 1 View (Portable) IMPRESSION: Stable, nonacute portable x-ray examination of the chest. Electronically Signed: Chetan Nielson MD ([place]oks) at 16:50 EST , Service support ,
--- NOTE | 2019-05-15 16:34 | ED.VIS.GEN ---
History of Present Illness Chief Complaint: Chest Pain Informant: Patient Onset: Days - 11 days Timing: Continuous Current Severity: Mild Maximum Severity: Moderate Narrative: Patient presents with 11-day history of chest pressure. He reports a little bit of shortness of breath. He states the pain does seem to get a little bit worse when he lies down. He has not had fever or cough. Patient has a history of prior STEMI and has cardiac stent. He is still on Brilinta and aspirin. Patient does have a history of A. fib but is not on any other blood thinners. - Past Medical History (1) Arthritis Status: Chronic (2) Atherosclerotic heart disease of [place] coronary artery without angina pectoris Status: Chronic Comment: Anterior STEMI, LAURE to mid LAD: 2.5 X [address] Nguyen @ [facility] (3) Atrial fibrillation Status: Chronic (4) Bipolar disorder Status: Chronic (5) CRI (chronic renal insufficiency) Status: Chronic (6) Diabetes mellitus, type II Status: Chronic Comment: BG readings checked at various times of day. Range 58-200+ He does have a pattern of waking with low Bg. Will reduce his pm lantus today and have him call back office with any further low BG. Reports taking insulin as directed as well as his oral agents. Is due for labs and I have ask him to do these today or tomorrow. BP recheck 134/76 (7) Hyperlipidemia Status: Chronic (8) Hypertension Status: Chronic (9) Neuropathy Status: Chronic (10) STEMI (ST elevation myocardial infarction) Status: Chronic Comment: Anterior STEMI in October 2017 (11) Stented coronary artery Status: Chronic Comment: LAURE to mid LAD: 2.5 X [address] Nguyen @ [facility] (12) Traumatic brain injury Status: Chronic Past Medical History - Allergies and Home Meds Allergies/Adverse Reactions: Allergies atorvastatin [From Lipitor] Allergy (Verified 05/15/19 16:14) Unknown Penicillins Allergy (Verified 05/15/19 16:14) Unknown lisinopril Adverse Reaction (Unknown, Verified 05/15/19 16:14) unknown codeine Adverse Reaction (Verified 05/15/19 16:14) Upset Stomach doxycycline Adverse Reaction (Verified 05/15/19 16:14) Other nickel Adverse Reaction (Verified 05/15/19 16:14) Rash LYCOPEEN Adverse Reaction (Uncoded 05/15/19 16:14) Other Primary Care Physician: Issa Trinidad MD [Primary Care Provider] - Prior records reviewed: Yes Surgical History: - - Cardiac catheterization, T+A, R cataract, L shoulder surgery, R TKR. Smoking Status: Never smoker - Family History Maternal Family History: Family History (Last Reviewed 12/30/18 @ 17:[address] Ragini Sutton DO) Father Arthritis Bleeding disorder Heart disease Hypertension Mother Hypertension Family History: Reports: - Paternal Family History: Family History (Last Reviewed 12/30/18 @ 17:[address] Ragini Sutton DO) Father Arthritis Bleeding disorder Heart disease Hypertension Mother Hypertension Family History: Reports: - Review of Systems General: Denies: Chills, Fever Eyes: Denies: Visual changes - bilaterally ENT: Denies: Bilateral ear pain Cardiovascular: Reports: Chest pain Respiratory: Reports: Dyspnea - Minimal. Denies: Cough Gastrointestinal: Denies: Abdominal pain, Nausea, Vomiting, Diarrhea Genitourinary: Denies: Dysuria Musculoskeletal: Denies: Extremity Pain Skin: Denies: Rash Neurological: Denies: Headache Hematologic: Denies: Easy bruising, Easy bleeding Allergy: Denies: Uticaria Physical Exam Vital Signs/Narrative: Vital Signs Temp Pulse Resp BP Pulse Ox 05/15/19 16:15 98.4 F 65 18 98/64 97 Inital Vital Signs reviewed: Yes General: Well nourished, Well developed Head: Normocephalic ENT: Moist mucous membranes Neck: Supple Cardiovascular: Irregular, Bradycardia Respiratory: No distress, CTA bilaterally Abdomen: Soft, Nontender Back: Nontender Extremities: Nontender Skin: Normal color, No rash Neurological: Alert, Oriented x3 Psychological: - - Flat affect Diagnostic/Tx/Re-eval Impressions Chest X-Ray 05/15/19 16:33 IMPRESSION: Stable, nonacute portable x-ray examination of the chest. Electronically Signed: Chetan Nielson MD (Brooks) at 16:50 EST , Service support , 05/15/19 16:33 Chest 1 View (Portable) [RAD] Stat Laboratory Results 05/15/19 05/15/19 05/15/19 16:13 16:13 17:30 WBC 8.6 RBC 3.91 L Hgb 11.6 L Hct 34.7 L MCV 88.7 MCH 29.7 MCHC 33.4 RDW Std Deviation 39.9 RDW Coeff of Shashank 12.4 Plt Count 250 MPV 10.9 Immature Gran % (Auto) 0.200 Neut % (Auto) 69.2 Lymph % (Auto) 15.9 L [place] % (Auto) 12.2 H Eos % (Auto) 2.3 Baso % (Auto) 0.2 Absolute Neuts (auto) 6.0 Absolute Lymphs (auto) 1.37 Nucleated RBC % 0 Sodium Cancelled 141 Potassium Cancelled 3.2 L Chloride Cancelled 109 H Carbon Dioxide Cancelled 26.0 Anion Gap Cancelled 6 BUN Cancelled 76 H Creatinine Cancelled 3.41 H Estim Creat Clear Calc Cancelled 20.16 Est GFR (MDRD) Af Amer Cancelled 23 L Est GFR (MDRD) Non-Af Cancelled 19 L BUN/Creatinine Ratio Cancelled 22.3 H Glucose Cancelled 105 Calcium Cancelled 10.1 Troponin I Cancelled < 0.015 - EKG Initial EKG Interpretation: Atrial Fibrillation - A. fib with a ventricular response rate of 49. No acute ST change. - Medical Decision Making Patient was given gentle IV fluids. On repeat evaluation he reports essentially no chest pain. His potassium is slightly low at 3.2. He will be given p.o. replacement here and patient just wants to eat an extra banana or 2 each day rather than take supplements at home. He is encouraged to follow-up with cardiology. ED Disposition - Plan for ED Patient: Disposition: Home or Assisted Living Diagnosis: Chest pain, Hypokalemia Instructions: CHEST PAIN, Uncertain Cause, Hypokalemia Referrals: Issa Trinidad MD [Primary Care Provider] - Chito Nguyen MD [STAFF PHYSICIAN] - As soon as possible
[2019-05-15 16:52] VITALS: O2SAT 94
[2019-05-15 17:04] LABS: Absolute Lymphocyte Count 1.37 X10^3/uL (0.83-4.51); Basophil# 0.02 X10^3/uL; Basophil% 0.2 % (0-1); Eosinophils% 2.3 % (0-5); Hematocrit 34.7 % (40-54); Hemoglobin 11.6 g/dL (13.0-16.5); Lymphocyte # 1.37 X10^3/ul (4.0); Lymphocyte % 15.9 % (19-41); Mean Corp Hgb Conc 33.4 g/dL (32-36); Mean Corpuscular Hgb 29.7 pg (27.0-32.0); Mean Corpuscular Volume 88.7 fL (80-94); Mean Platelet Vol. 10.9 fl (6.2-12.0); Monocyte# 1.05 X10^3/uL; Monocyte% 12.2 % (0-10); NRBC Flagged by Analyzer 0 % (0-5); Neutrophil # 5.95 X10^3/uL (2.7-7.7); Neutrophil % 69.2 % (47-70); Platelet Count 250 K/mm3 (150-450); RBC Distribution Width CV 12.4 % (11.6-14.6); RBC Distribution Width SD 39.9 fl (35.1-43.9); Red Blood Count 3.91 M/mm3 (4.6-6.2); White Blood Count 8.6 K/mm3 (4.4-11.0)
[2019-05-15] MEDS: 0.9% Normal Saline 1,000 ML 150 ML IV (17:08)
[2019-05-15 17:36] VITALS: BP 128/61; PULSE 60; RESP 18; O2SAT 98
[2019-05-15 18:02] LABS: Anion Gap 6 (5-15); BUN 76 mg/dL (7-18); BUN/Creat Ratio 22.3 RATIO (10-20); Calcium,Total 10.1 mg/dL (8.5-10.1); Chloride 109 mmol/L (98-107); Creatinine, Serum 3.41 mg/dL (0.70-1.30); EST Glomerular Filtration Rate 19 mL/min (>60); Est Glom Filt Rate - Afr Amer 23 mL/min (>60); Estimated Creatinine Clearance 20.16 ml/min; Glucose 105 mg/dL (74-106); Potassium 3.2 mmol/L (3.5-5.1); Sodium Level 141 mmol/L (136-145)
[2019-05-15 18:16] VITALS: BP 117/73; PULSE 62; RESP 18; O2SAT 95
[2019-05-15 19:28] VITALS: BP 116/75; PULSE 60; RESP 18; O2SAT 98
== END 2019-05-15 19:33 | disposition home or self-care (01) ==
PROVIDERS: Emergency Provider Emergency Medicine; PCP Family Medicine
DX: R07.9 Chest pain, unspecified (principal); E87.6 Hypokalemia; I48.91 Unspecified atrial fibrillation; E78.5 Hyperlipidemia, unspecified; I25.10 Atherosclerotic heart disease of native coronary artery without angina pectoris; I25.2 Old myocardial infarction; Z95.5 Presence of coronary angioplasty implant and graft; F31.9 Bipolar disorder, unspecified; Z87.820 Personal history of traumatic brain injury; Z88.0 Allergy status to penicillin; Z88.1 Allergy status to other antibiotic agents; Z88.5 Allergy status to narcotic agent; Z82.49 Family history of ischemic heart disease and other diseases of the circulatory system; E11.9 Type 2 diabetes mellitus without complications; I10 Essential (primary) hypertension; E11.40 Type 2 diabetes mellitus with diabetic neuropathy, unspecified
CPT/HCPCS: 71045; 80048; 84484; 85025; 93005; 96360; 96361; 99285; J7030; A4216

== ENCOUNTER 2019-11-13 06:08 | Inpatient (IN) | payer MEDICARE, SELFPAY ==
[2017-11-19 09:37] VITALS: BMI 31.8
[2019-08-24 10:20] VITALS: BMI 25.4
[2019-11-13] VITALS (12 sets, daily range): BP systolic 152–167; BP diastolic 77–98; PULSE 65–130; RESP 18–27; TEMP 36.4–36.8; O2SAT 94–97; BMI 25.5; BMI 25.9
--- NOTE | 2019-11-13 06:12 | ED.RN ---
CALLED FOR EKG PER RN REQUEST, PULLED OLD EKGS FOR
--- NOTE | 2019-11-13 06:21 | EKG12_ITS ---
Test Reason : PALP Blood Pressure : / mmHG Vent. Rate : 073 BPM Atrial Rate : 277 BPM P-R Int : 000 ms QRS Dur : 082 ms QT Int : 384 ms P-R-T Axes : 000 -33 048 degrees QTc Int : 423 ms Atrial fibrillation Left axis deviation Septal infarct , age undetermined Abnormal ECG Confirmed by SAMMI JASON, HERNANDO ([id number]), news video editor VENTURA FINK ([id number]) on 11/16/2019 8:57:36 AM Referred By: ENRIQUE Confirmed By:NARDA CHAPA MD
[2019-11-13] MEDS: Ondansetron 4 MG/2 ML Vial IV (06:30)
[2019-11-13] MEDS: Aspirin 81 MG TAB.CHEW 324 MG PO (06:30)
[2019-11-13 06:31] LABS: Absolute Lymphocyte Count 1.75 X10^3/uL (0.83-4.51); Absolute Neutrophil Count 5.3 X10^3/uL (2.0-7.7); Basophil# 0.04 X10^3/uL; Basophil% 0.5 % (0-1); Eosinophil# 0.23 X10^3/uL; Eosinophils% 2.8 % (0-5); Hematocrit 38.4 % (40-54); Hemoglobin 12.7 g/dL (13.0-16.5); Lymphocyte # 1.75 X10^3/ul (4.0); Lymphocyte % 21.1 % (19-41); Mean Corp Hgb Conc 33.1 g/dL (32-36); Mean Corpuscular Hgb 29.7 pg (27.0-32.0); Mean Corpuscular Volume 89.9 fL (80-94); Mean Platelet Vol. 9.8 fl (6.2-12.0); Monocyte# 0.95 X10^3/uL; Monocyte% 11.5 % (0-10); NRBC Flagged by Analyzer 0 % (0-5); Neutrophil # 5.29 X10^3/uL (2.7-7.7); Neutrophil % 63.7 % (47-70); Platelet Count 288 K/mm3 (150-450); RBC Distribution Width CV 13.1 % (11.6-14.6); RBC Distribution Width SD 42.5 fl (35.1-43.9); Red Blood Count 4.27 M/mm3 (4.6-6.2); White Blood Count 8.3 K/mm3 (4.4-11.0)
--- NOTE | 2019-11-13 06:35 | RAD_ITS ---
STUDY: X-RAY CHEST REASON FOR EXAM: Male, 68 years old. PALPITATIONS TECHNIQUE: Single AP portable view of the chest. COMPARISON: 05/15/2019 FINDINGS: The lungs are clear and expanded. There is no demonstrated pleural abnormality. Normal size heart. Normal mediastinum and prerna. Normal visualized pulmonary arteries. Normal visualized aortic arch and descending thoracic aorta. Normal visualized thoracic spine. Normal visualized ribs, clavicles, and shoulders. There is no demonstrated abnormality of the visualized soft tissue structures of the upper abdomen. RAD/Chest 1 View (Portable) IMPRESSION: Normal x-ray examination of the chest. Electronically Signed: Scott Marquez MD at 6:59 EDT Tel , Service support ,
[2019-11-13 06:42] LABS: International Normalized Ratio 1.1; Prothrombin Time (Protime)PT. 13.5 SECONDS (11.7-14.9)
[2019-11-13 06:43] LABS: Partial Thromboplast Time 25.4 Seconds (24.1-36.2)
--- NOTE | 2019-11-13 06:46 | ED.DCSUM_ITS ---
- ER Visit Summary Date of Service: 11/13/19 Chief Complaint: Palpitations and chest pain History of Present Illness: The patient is a [address] Corbett and Dr. Nguyen. He has a history of a traumatic brain injury and is a very poor informant. He reports that he has chest pain and palpitations that began approximately 1 hour ago. However, he then reports that he had taken some pills with Pepsi last night and had chest pain. He describes as an aching pain that is 7 on 10 at worst and 5-10 currently. Nothing seems to make this better or worse. He reports he has had nausea and diaphoresis. He denies any vomiting or shortness of breath. Physical Examination: Vitals: Stable. Afebrile. General: Well-nourished and well-developed. Head: Normocephalic atraumatic. Neck: Supple, no lymphadenopathy. No JVD. Nontender. Cardiovascular: Regular rate and rhythm. No murmurs. Respiratory: No respiratory distress. Clear to auscultation bilaterally. Abdominal: Soft, nontender, nondistended, normal bowel sounds. No guarding, rebound, or peritoneal signs. Back: Nontender. Extremities: Nontender, no edema. Skin: Normal color, no rash. Neurologic: Alert and oriented ?3. Cranial nerves II through XII are intact. Normal strength and sensation. Psych: Flat affect. Test Results: EKG shows atrial fibrillation rate of [address] changes. Is unchanged from April of this year. Chest x-ray shows chronic changes. CBC shows an H&H of 12.7 and 38.4. Monocytes are 12. Coags are normal. Chem-7 shows a BUN of 30, creatinine 2.35, glucose 196. TSH is normal. Troponin is less than 0.015. Clinical Impression(s) from Imaging Studies Chest X-Ray 11/13/19 06:35 IMPRESSION: Normal x-ray examination of the chest. Electronically Signed: Scott Marquez MD at 6:59 EDT Tel , Service support , Emergency Department Course and Treatment: Patient had an IV placed. He was giv en aspirin p.o. and Zofran IV. He is resting comfortably. Chart review shows the patient's last stress test was in December 2017. Does not appear that he comes to the hospital very often for chest pain. Treatment Plan: Given the patient's inability to give an accurate history I feel that he warrants admission to the hospital for further evaluation and treatment. He was discussed with Dr. Parada and will be admitted for further evaluaiton and treatment. Disposition: Admitted in stable condition. Impression: 1. Atrial fibrillation. 2. Chest pain. 3. BENEDICT score of 4. 4. Chronic renal insufficiency. This note was generated with rubberitation software. It may contain incorrect words, spelling, and punctuation that were not noted in review of the chart prior to signing ED Disposition - Plan for ED Patient: Referrals: Issa Trinidad MD [Primary Care Provider] -
[2019-11-13] MEDS: 0.9% Normal Saline 1,000 ML 150 ML IV (06:55)
[2019-11-13 07:00] LABS: Anion Gap 5 (5-15); BUN 30 mg/dL (7-18); BUN/Creat Ratio 12.8 RATIO (10-20); Calcium,Total 9.1 mg/dL (8.5-10.1); Chloride 106 mmol/L (98-107); Creatinine, Serum 2.35 mg/dL (0.70-1.30); EST Glomerular Filtration Rate 29 mL/min (>60); Est Glom Filt Rate - Afr Amer 35 mL/min (>60); Estimated Creatinine Clearance 29.25 ml/min; Glucose 196 mg/dL (74-106); Potassium 4.1 mmol/L (3.5-5.1); Sodium Level 137 mmol/L (136-145)
--- NOTE | 2019-11-13 07:46 | ECHOD_ITS ---
Reason For Study: Chest pain Procedure This was a 2D Doppler, Color Flow transthoracic echocardiogram. Exam performed portable in patient room. Left Ventricle Mild concentric left ventricular hypertrophy. NO LV thrombus. The estimated ejection fraction is 60 %. Right Ventricle Normal right ventricle. Normal systolic function. Atria The left atrium is moderately enlarged. Normal right atrium. Normal atrial septum. Mitral Valve The mitral valve is structurally normal. No prolapse or stenosis seen. There is no mitral valve stenosis. Trivial mitral valve insufficiency. Tricuspid Valve Normal tricuspid valve. Trivial tricuspid valve insufficiency. Pulmonary artery systolic pressure is 32,7 mmHg. Mild pulmonary hypertension. Aortic Valve Normal aortic valve. No aortic valve insufficiency. Pulmonic Valve Normal pulmonic valve. Great Vessels Normal aortic root. Pericardium/Pleural No pericardial effusion. MMode/2D Measurements & Calculations LVIDd: 4.3 cm IVSd: 1.4 cm Ao root diam: 3.3 cm LVIDs: 2.0 cm LVPWd: 1.2 cm RVDd: 3.4 cm FS: 53.2 % LAV(MOD-bp): 73.1 ml LA A4 area: 25.0 cm2 LA dimension(2D): 4.7 cm LAV(MOD-bp) Indexed: 37.7 ml/m2 LAV(MOD-sp2): 62.1 ml LAV(MOD-sp4): 80.9 ml RA A4 area: 12.5 cm2 Doppler Measurements & Calculations MV E max kenna: 103.6 cm/sec Ao V2 max: 128.2 cm/sec LV V1 max: 104.6 cm/sec Ao max P.6 mmHg LV V1 max P.4 mmHg PA V2 max: 119.6 cm/sec TR max kenna: 284.6 cm/sec TR max P.7 mmHg Interpretation Summary The estimated ejection fraction is 60 %. Trivial mitral valve insufficiency. Trivial tricuspid valve insufficiency. Pulmonary artery systolic pressure is 32,7 mmHg. Mild pulmonary hypertension. Mild concentric left ventricular hypertrophy. Ordering Physician: Jason Parada Referring Physician: DO Stef Aragon Performed By: Anabell Jay RDCS
--- NOTE | 2019-11-13 07:46 | EKG12_ITS ---
Test Reason : ADMIT Blood Pressure : / mmHG Vent. Rate : 064 BPM Atrial Rate : 340 BPM P-R Int : 000 ms QRS Dur : 080 ms QT Int : 394 ms P-R-T Axes : 000 -42 045 degrees QTc Int : 406 ms Atrial fibrillation Left axis deviation Septal infarct , age undetermined Abnormal ECG Confirmed by TU JASON, NERY ([id number]), clinical editor VENTURA FINK ([id number]) on 11/17/2019 1:07:41 PM Referred By: OLIVIA Confirmed By:NERY MAE MD
--- NOTE | 2019-11-13 10:58 | HP.PCM_ITS ---
History of Present Illness Date of Admission: 11/13/19 Chief Complaint: Chest pain and palpitations The patient is a 68 year old M with a PMH as below who presents from home with chest pain and palpitations. 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 He is very tangential in his speech and talks about taking pills with Pepcid and having difficulty swallowing water last night he comes around the same that he has been having some chest pain as well that started may be an hour prior to admission. It is hard to elucidate if anything makes it better or worse and he is focused on calling his Sister Ann Marie. Chart review demonstrates that he had a STEMI in 2018 and he underwent a cardiac cath with placement of a LAURE to the mid LAD. At the time his EF was 50 to 55% with moderate to severe anteroapical hypokinesis with a normal right ventricular systolic pressure. In the ER his vital signs are stable and his initial troponin was normal, with an unchanged EKG Past Medical History Past Medical History (Chronic Problems): Chronic Problems (Last Reviewed 08/11/19 @ 13:30 by Jess Sow) CRI (chronic renal insufficiency) (Chronic) Atherosclerotic heart disease of [place] coronary artery without angina pectoris (Chronic) Anterior STEMI, LAURE to mid LAD: 2.5 X [address] Nguyen @ [facility] Stented coronary artery (Chronic 11/19/17) LAURE to mid LAD: 2.5 X [address] Nguyen @ [facility] STEMI (ST elevation myocardial infarction) (Chronic 11/19/17) Anterior STEMI in October 2017 Diabetes mellitus, type II (Chronic) BG readings checked at various times of day. Range 58-200+ He does have a pattern of waking with low Bg. Will reduce his pm lantus today and have him call back office with any further low BG. Reports taking insulin as directed as well as his oral agents. Is due for labs and I have ask him to do these today or tomorrow. BP recheck 134/76 Bipolar disorder (Chronic) Atrial fibrillation (Chronic) Hyperlipidemia (Chronic) Neuropathy (Chronic) Hypertension (Chronic) Gout (Chronic) Traumatic brain injury (Chronic) Arthritis (Chronic) Medical History: Medical History (Last Reviewed 08/11/19 @ 13:30 by Jess Sow) Atherosclerotic heart disease of [place] coronary artery without angina pectoris (Chronic) I25.10 Anterior STEMI, LAURE to mid LAD: 2.5 X [address] Nguyen @ [facility] STEMI (ST elevation myocardial infarction) (Chronic) Onset Date: 11/19/17 I21.3 Anterior STEMI in October 2017 Diabetes mellitus, type II (Chronic) E11.9 BG readings checked at various times of day. Range 58-200+ He does have a pattern of waking with low Bg. Will reduce his pm lantus today and have him call back office with any further low BG. Reports taking insulin as directed as well as his oral agents. Is due for labs and I have ask him to do these today or tomorrow. BP recheck 134/76 Bipolar disorder (Chronic) F31.9 Hyperlipidemia (Chronic) E78.5 Neuropathy (Chronic) G62.9 Hypertension (Chronic) I10 Traumatic brain injury (Chronic) S06.9X9A Arthritis (Chronic) M19.90 Afib I48.91 Anxiety F41.9 Arthritis M19.90 Back problem M53.9 Cataracts, bilateral H26.9 Depression F32.9 Diabetes type 2, controlled E11.9 GI problem R19.8 Headache R51 Heart disease I51.9 High cholesterol E78.00 Kidney disease N28.9 Osteoarthritis M19.90 Recurrent UTI N39.0 Seasonal allergies J30.2 HTN (hypertension) I10 Allergies atorvastatin [From Lipitor] Allergy (Verified 11/13/19 06:12) Unknown Penicillins Allergy (Verified 11/13/19 06:12) Unknown lisinopril Adverse Reaction (Unknown, Verified 11/13/19 06:12) unknown codeine Adverse Reaction (Verified 11/13/19 06:12) Upset Stomach doxycycline Adverse Reaction (Verified 11/13/19 06:12) Other nickel Adverse Reaction (Verified 11/13/19 06:12) Rash LYCOPEEN Adverse Reaction (Uncoded 11/13/19 06:12) Other Home Medications: Ambulatory Orders Medication Instructions Recorded Ferrous Sulfate [Iron] 325 mg PO DAILY 04/09/16 Gabapentin [Neurontin] 600 mg PO BID 04/09/16 Multivitamin [Daily Multiple 1 tab PO DAILY 09/07/16 Vitamin] aspirin 81 mg tablet,delayed 81 mg PO QDAY 02/27/17 release nitroglycerin 0.4 mg sublingual 0.4 mg SUBLINGUAL Q5M PRN 02/27/17 tablet Carvedilol [Coreg (Beta Tulio)] 6.25 mg PO BID #60 tab 11/21/17 Liraglutide [Victoza] 1.2 mg SQ DAILY 01/01/18 Oxybutynin [Ditropan] 5 mg PO TID 01/01/18 amlodipine 10 mg tablet 10 mg PO DAILY 02/03/19 cholecalciferol (vitamin D3) 25 1,000 unit PO DAILY 02/03/19 mcg (1,000 unit) capsule levothyroxine 112 mcg capsule 112 mcg PO DAILY 08/24/19 ticagrelor 90 mg tablet 90 mg PO BID #60 tab 08/24/19 Aripiprazole [Abilify Maintena] 1 mg PO DAILY 11/13/19 Ticagrelor [Brilinta] 90 mg PO BID 11/13/19 Surgical History: Surgical History (Last Reviewed 08/11/19 @ 13:30 by Jess Sow) Stented coronary artery (Chronic) Onset Date: 11/19/17 Z95.5 LAURE to mid LAD: 2.5 X [address] Nguyen @ [facility] Surgical History: - - Cardiac catheterization, T+A, R cataract, L shoulder surgery, R TKR. Psychiatric History: Bipolar, Schizophrenia Smoking Status: Never smoker Alcohol: None Drugs: None - *Family History Maternal Family History: Family History (Last Reviewed 08/11/19 @ 13:30 by Jess Sow) Father Arthritis Bleeding disorder Heart disease Hypertension Mother Hypertension History Items: - Paternal Family History: Family History (Last Reviewed 08/11/19 @ 13:30 by Jess Sow) Father Arthritis Bleeding disorder Heart disease Hypertension Mother Hypertension History Items: - Review of Systems Constitutional: Denies: Chills, Fever, Weight Change HEENT: Denies: Head Aches, Sinus Congestion, Sinus Drainage Cardiovascular: Reports: Chest Pain, Palpitations Respiratory: Denies: Cough, Shortness of breath at rest, Sputum production Gastrointestinal: Denies: Abdominal Pain, Nausea, Vomiting Genitourinary: Denies: Dysuria Musculoskeletal: Denies: Joint Pain, Joint Tenderness Skin: Denies: Rash, Wounds Neurological: Denies: Numbness, Tingling, Focal weakness Psychiatric: Denies: Anxiety, Depression Hematologic/ Lymphatic: Denies: Easy Bruising, Easy Bleeding VTE Information - Inpt Only VTE Present on Admission: No - Physical Exam Vitals/I&O's: Vital Signs Temp Pulse Resp BP Pulse Ox 98.3 F 78 18 152/77 H 96 11/13/19 07:58 11/13/19 10:43 11/13/19 07:58 11/13/19 07:58 11/13/19 07:58 Oxygen Delivery Method Room Air Weight: 175 lb 4.28 oz Body Mass Index (BMI) 25.9 Finger Stick Blood Glucose 380 Intake and Output for Last 24 Hours 11/11/19 11/12/19 11/13/19 23:59 23:59 23:59 Intake Total 187.5 / 187.5 Balance 187.5 / 187.5 General: Alert, Oriented x3, Cooperative, No apparent distress HEENT: Atraumatic, PERRLA, EOMI, Normocephalic Oral: Moist Mucosa Neck: Supple, No JVD Lungs: Clear to auscultation, Normal air movement, No rhonchi, No wheeze, No rales, Diminished Cardiovascular: Regular rate, Regular Rhythm, Normal S1, Normal S2, No murmurs Abdomen: Soft, Non Tender, Non-Distended, No Hepato-splenomegaly Extremities: No edema, Capillary Refill Less than 3 Seconds Skin: No rashes, No breakdown Neurological: Neuro grossly intact, Sensory exam intact to light touch and pain Psych/Mental Status: Normal Affect, Appropriate, - - Tangential speech that requires often redirection Laboratory Results 11/13/19 06:17: WBC 8.3, RBC 4.27 L, Hgb 12.7 L, Hct 38.4 L, MCV 89.9, MCH 29.7, MCHC 33.1, RDW Std Deviation 42.5, RDW Coeff of Shashank 13.1, Plt Count 288, MPV 9.8, Immature Gran % (Auto) 0.400, Neut % (Auto) 63.7, Lymph % (Auto) 21.1, Mcleod % (Auto) 11.5 H, Eos % (Auto) 2.8, Baso % (Auto) 0.5, Absolute Neuts (auto) 5.3, Absolute Lymphs (auto) 1.75, Nucleated RBC % 0 11/13/19 06:17: PT 13.5, INR 1.1, APTT 25.4 11/13/19 06:17: Sodium 137, Potassium 4.1, Chloride 106, Carbon Dioxide 26.0, Anion Gap 5, BUN 30 H, Creatinine 2.35 H, Estim Creat Clear Calc 29.25, Est GFR (MDRD) Af Amer 35 L, Est GFR (MDRD) Non-Af 29 L, BUN/Creatinine Ratio 12.8, Glucose 196 H, Calcium 9.1, Troponin I < 0.015, TSH 2.10 11/13/19 08:46: Troponin I < 0.015 Current Medications Acetaminophen (Tylenol) 650 mg PO Q6H PRN PRN PRN Reason: Pain Score 1-10/Temp > 100.7 F Sodium Chloride () 500 mls @ 15 mls/hr IV PRN PRN PRN Reason: Blood Transfusion Sodium Chloride () 250 mls @ 15 mls/hr IV .[id number] PRN PRN Reason: Saline Flush Sodium Chloride () 250 mls @ 15 mls/hr IV .[id number] PRN PRN Reason: Additional IVPB Infusion Melatonin (Melatonin) 3 mg PO QHS PRN PRN PRN Reason: INSOMNIA Nitroglycerin (Nitrostat) 0.4 mg SUBLINGUAL Q5M PRN PRN Reason: CARDIAC/CHEST PAIN Ondansetron HCl (Zofran) 4 mg IV Q8H PRN PRN PRN Reason: NAUSEA/VOMITING Sodium Chloride () 10 - 40 ml IV UD PRN PRN Reason: SALINE FLUSH Assessment/Plan All Active Problems (Last Reviewed 08/11/19 @ 13:30 by Jess Sow) Atrial fibrillation with rapid ventricular response (Acute) Change in mental status (Acute) Cellulitis (Resolved) Scalp laceration (Resolved) 1. Chest pain/history of STEMI, CAD status post stent . fib/HTN/HLD -It is difficult to clarify the quality of his chest pain and if anything makes it better or worse -We will proceed with an echo today, and if this is unremarkable and his troponins remain negative could potentially discharge tomorrow or keep until Friday for stress test -We will continue with aspirin and Brilinta -Blood pressure is stable currently, will continue with his beta-tulio and Norvasc -EKG is unchanged from April 25. DM 2/CKD 3 -He is on Victoza as an outpatient which will be held -We will place him on sliding scale insulin and Accu-Cheks AC at bedtime -Creatinine is at baseline 3. Traumatic brain injury/bipolar -We will continue with his Abilify -He had been transferred to an inpatient psychiatric unit in [place] during a previous admission -Continue with his gabapentin 4. Urinary incontinence -Stable -Continue with oxybutynin DVT: Ambulation OBSV E&M: [id number] Initial observation care L3
[2019-11-13] MEDS: Ferrous Sulfate 325 MG Tablet PO (12:22)
[2019-11-13] MEDS: Oxybutynin 5 MG Tablet PO ×2 (14:35→22:01)
[2019-11-13] MEDS: Carvedilol 6.25 MG Tablet PO ×2 (14:56→22:01)
[2019-11-13] MEDS: Insulin Lispro 100 UNIT/ML INSULN.PEN SC ×2 (15:58→21:54)
[2019-11-13 16:00] LABS: Bedside Glucose 444 mg/dL (70-110)
[2019-11-13] MEDS: Gabapentin 600 MG Tablet PO (16:07)
[2019-11-13 21:16] LABS: Bedside Glucose > 500 mg/dL (70-110)
[2019-11-13 21:47] LABS: Glucose 449 mg/dL (74-106)
[2019-11-13] MEDS: MELATONIN 3 MG TABLET PO (22:01)
[2019-11-13] MEDS: TICAGRELOR 90 MG TABLET PO (22:01)
[2019-11-13] MEDS: 0.9% Saline Lock 10 ML Syringe IV (22:03)
[2019-11-14] VITALS (12 sets, daily range): BP systolic 147–169; BP diastolic 75–98; PULSE 76–156; RESP 18–22; TEMP 36.6–37; O2SAT 93–94
[2019-11-14] MEDS: Ondansetron 4 MG/2 ML Vial IV ×2 (01:47→12:18)
[2019-11-14] MEDS: 0.9% Saline Lock 10 ML Syringe IV ×2 (01:51→12:18)
[2019-11-14 02:15] LABS: Bedside Glucose 345 mg/dL (70-110)
[2019-11-14] MEDS: Levothyroxine 112 MCG Tablet PO (05:10)
[2019-11-14] MEDS: Oxybutynin 5 MG Tablet PO ×3 (05:10→21:06)
[2019-11-14 05:35] LABS: Absolute Lymphocyte Count 1.58 X10^3/uL (0.83-4.51); Absolute Neutrophil Count 14.3 X10^3/uL (2.0-7.7); Basophil# 0.06 X10^3/uL; Basophil% 0.3 % (0-1); Eosinophil# 0.12 X10^3/uL; Eosinophils% 0.7 % (0-5); Hematocrit 45.2 % (40-54); Hemoglobin 14.7 g/dL (13.0-16.5); Lymphocyte # 1.58 X10^3/ul (4.0); Lymphocyte % 9.1 % (19-41); Mean Corp Hgb Conc 32.5 g/dL (32-36); Mean Corpuscular Hgb 29.3 pg (27.0-32.0); Mean Platelet Vol. 10.2 fl (6.2-12.0); Monocyte# 1.29 X10^3/uL; Monocyte% 7.4 % (0-10); NRBC Flagged by Analyzer 0 % (0-5); Neutrophil # 14.34 X10^3/uL (2.7-7.7); Neutrophil % 82.2 % (47-70); Platelet Count 357 K/mm3 (150-450); RBC Distribution Width SD 42.2 fl (35.1-43.9); Red Blood Count 5.02 M/mm3 (4.6-6.2); White Blood Count 17.5 K/mm3 (4.4-11.0)
[2019-11-14 06:03] LABS: Anion Gap 9 (5-15); BUN 36 mg/dL (7-18); BUN/Creat Ratio 13.1 RATIO (10-20); Calcium,Total 9.7 mg/dL (8.5-10.1); Chloride 97 mmol/L (98-107); Creatinine, Serum 2.74 mg/dL (0.70-1.30); EST Glomerular Filtration Rate 25 mL/min (>60); Est Glom Filt Rate - Afr Amer 30 mL/min (>60); Estimated Creatinine Clearance 25.09 ml/min; Glucose 348 mg/dL (74-106); Potassium 4.4 mmol/L (3.5-5.1); Sodium Level 134 mmol/L (136-145)
[2019-11-14] MEDS: Calcium Carbonate 500 MG Tablet 1000 MG PO (06:29)
[2019-11-14] MEDS: Insulin Lispro 100 UNIT/ML INSULN.PEN SC ×3 (06:30→10:57)
[2019-11-14 07:10] LABS: Bedside Glucose 380 mg/dL (70-110)
[2019-11-14] MEDS: Aspirin E.C. 81 MG Tablet PO (07:41)
[2019-11-14] MEDS: Gabapentin 600 MG Tablet PO ×2 (07:41→15:58)
[2019-11-14] MEDS: 0.9% Normal Saline 1,000 ML 75 ML IV (07:41)
--- NOTE | 2019-11-14 08:02 | CT_ITS ---
STUDY: CT ABDOMEN AND PELVIS WITHOUT CONTRAST REASON FOR EXAM: Male, 68 years old. LEUKOCYTOSIS,ABD PAIN,SIGNIFICANT EMESIS RADIATION DOSAGE (If Supplied By Facility): CTDIvol = ( 7.95 ) mGy, DLP = ( 418.91 ) mGycm TECHNIQUE: Transaxial images were obtained from the dome of the diaphragm to the symphysis pubis without oral contrast, and without intravenous contrast. Sagittal and coronal images were reconstructed. Individualized dose optimization techniques were used for this CT. COMPARISON: 07/24/2015 CT abdomen and pelvis FINDINGS: Left lower lung atelectatic changes are present. The visualized portions of the heart are within normal limits. Right hepatic lobe central microcalcification is present similar to the prior exam with otherwise no evidence of acute process. Normal gallbladder and extrahepatic biliary system. Normal spleen. Normal pancreas. Normal bilateral adrenal glands. Simple appearing cysts of the inferior renal pole are present with overall similar appearance compared to the 2016 exam. Additionally within the left kidney is a small posterior superior exophytic cyst with some pleural appearance slightly increased in size or periventricular parietal measuring approximate 1.8 cm. There is a central posterior cortical cyst within the left kidney also with simple appearance. Calcification measuring 2.6 cm. Normal left kidney. Normal visualized stomach. There is dilatation within the left quadrant of the jejunal small bowel with diameter measuring up to 3.5 cm with scattered air and fluid consistent with ileus with underlying early small bowel obstruction not completely excluded and limited without oral contrast. Normal colon. The appendix is visualized and appears normal. Normal abdominal aorta. Normal inferior vena cava. Normal retroperitoneum. Normal urinary bladder. There is a bilateral inguinal hernia containing adipose tissue. There are diffuse degenerative changes of the visualized lumbar spine. CT/Abdomen/Pelvis without Cont IMPRESSION: 1. Left abdominal small bowel dilatation within the jejunum likely representing underlying ileus with early small bowel obstruction not excluded and limited without oral contrast. Recommend clinical correlation. Small bowel follow-through may be obtained for further characterization and evaluation versus repeat contrast study with oral contrast. 2. Simple appearing renal cysts as above. 3. Bilateral fat-containing inguinal hernias. Electronically Signed: Joel Treviño DO at 9:27 EDT , Service support ,
[2019-11-14] MEDS: proMETHazine 25 MG/ML Syringe 12.5 MG IV (08:22)
--- NOTE | 2019-11-14 08:40 | RAD_ITS ---
STUDY: X-RAY CHEST REASON FOR EXAM: Male, 68 years old. chest pain, pt. unable to communicate or follow directions TECHNIQUE: PA and lateral views of the chest. COMPARISON: 11/13/2019 FINDINGS: The lungs are clear and expanded. Elevated left hemidiaphragm which is unchanged. There is moderate cardiac enlargement. Normal mediastinum and prerna. Normal visualized pulmonary arteries. Normal visualized aortic arch and descending thoracic aorta. Normal visualized thoracic spine. Normal visualized ribs, clavicles, and shoulders. There is no demonstrated abnormality of the visualized soft tissue structures of the upper abdomen. RAD/Chest PA and Lateral IMPRESSION: No active disease. Electronically Signed: Scott Marquez MD at 9:16 EDT Tel , Service support ,
[2019-11-14] MEDS: amLODIPine 10 MG Tablet PO (09:59)
[2019-11-14] MEDS: TICAGRELOR 90 MG TABLET PO ×2 (09:59→21:06)
[2019-11-14] MEDS: Carvedilol 6.25 MG Tablet PO ×2 (10:00→21:06)
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
[2019-11-14 11:00] LABS: Bedside Glucose 345 mg/dL (70-110)
--- NOTE | 2019-11-14 13:23 | NURSING ---
This RN updated pt's sister Em via phone and sister, Ann Marie at pt's bedside.
[2019-11-14 16:05] LABS: Bedside Glucose 180 mg/dL (70-110)
[2019-11-14] MEDS: MELATONIN 3 MG TABLET PO (21:06)
[2019-11-14 22:01] LABS: Bedside Glucose 191 mg/dL (70-110)
[2019-11-15] VITALS (8 sets, daily range): BP systolic 126–157; BP diastolic 76–93; PULSE 72–94; RESP 16; TEMP 36.7–37.1; O2SAT 94–96
[2019-11-15] MEDS: 0.9% Normal Saline 1,000 ML 75 ML IV (02:37)
[2019-11-15 05:41] LABS: Absolute Lymphocyte Count 1.63 X10^3/uL (0.83-4.51); Absolute Neutrophil Count 7.7 X10^3/uL (2.0-7.7); Basophil# 0.05 X10^3/uL; Basophil% 0.5 % (0-1); Eosinophils% 3.7 % (0-5); Hematocrit 40.2 % (40-54); Hemoglobin 13.2 g/dL (13.0-16.5); Lymphocyte # 1.63 X10^3/ul (4.0); Lymphocyte % 15.2 % (19-41); Mean Corp Hgb Conc 32.8 g/dL (32-36); Mean Corpuscular Hgb 30.2 pg (27.0-32.0); Mean Platelet Vol. 10.2 fl (6.2-12.0); Monocyte# 0.95 X10^3/uL; Monocyte% 8.9 % (0-10); NRBC Flagged by Analyzer 0 % (0-5); Neutrophil # 7.65 X10^3/uL (2.7-7.7); Neutrophil % 71.2 % (47-70); Platelet Count 290 K/mm3 (150-450); RBC Distribution Width CV 13.2 % (11.6-14.6); RBC Distribution Width SD 43.8 fl (35.1-43.9); Red Blood Count 4.37 M/mm3 (4.6-6.2); White Blood Count 10.7 K/mm3 (4.4-11.0)
[2019-11-15 05:53] LABS: Anion Gap 6 (5-15); BUN 33 mg/dL (7-18); BUN/Creat Ratio 14.6 RATIO (10-20); Chloride 110 mmol/L (98-107); Creatinine, Serum 2.26 mg/dL (0.70-1.30); EST Glomerular Filtration Rate 31 mL/min (>60); Est Glom Filt Rate - Afr Amer 37 mL/min (>60); Estimated Creatinine Clearance 30.41 ml/min; Glucose 173 mg/dL (74-106); Potassium 4.5 mmol/L (3.5-5.1); Sodium Level 141 mmol/L (136-145)
[2019-11-15] MEDS: Levothyroxine 112 MCG Tablet PO (06:20)
[2019-11-15] MEDS: Oxybutynin 5 MG Tablet PO (06:20)
[2019-11-15 06:46] LABS: Bedside Glucose 181 mg/dL (70-110)
[2019-11-15] MEDS: TICAGRELOR 90 MG TABLET PO ×2 (08:32→21:18)
[2019-11-15] MEDS: Gabapentin 600 MG Tablet PO ×2 (08:32→16:43)
[2019-11-15] MEDS: Aspirin E.C. 81 MG Tablet PO (08:32)
[2019-11-15] MEDS: amLODIPine 10 MG Tablet PO (08:33)
[2019-11-15] MEDS: Carvedilol 6.25 MG Tablet PO ×2 (08:33→21:18)
--- NOTE | 2019-11-15 09:50 | RAD_ITS ---
STUDY: SMALL BOWEL FOLLOW-THROUGH EXAMINATION. REASON FOR EXAM: Male, 68 years old. PATIENT STATES POSSIBLE BOWEL OBSTRUCTION. ABDOMEN PAIN AND NAUSEA, SOME VOMITING. PATIENT STATES NO ABDOMINAL SURGERY AND NO HX OF CA. FLUOROSCOPY TIME (if supplied): ( 10 seconds ) minutes/seconds. 12 images were obtained. TECHNIQUE: The patient ingested barium. A small bowel follow-through examination was obtained. COMPARISON: None. FINDINGS: On the field scout film, there is evidence of a mildly distended small bowel loops. Gas and fecal material are seen in the colon. There is evidence of a distention of the proximal small bowel loops. A transition zone is seen at the jejunal ileal level in the left mid abdomen. Contrast is seen in the distal small bowel within 2 hours. Levoscoliosis with multilevel disc space narrowing and spondylosis. RAD/Small Bowel Series Only IMPRESSION: Partial small bowel obstruction with the transitional zone in the left mid abdomen at the junction of the jejunum and ileum. Electronically Signed: James Bean, at 15:12 EDT , Service support ,
--- NOTE | 2019-11-15 09:59 | CASEMGMT ---
Addendum entered by Juan Calderon 11/15/19 10:42: [facility] Original Note: RN CM Assessment Note Intro role of CM to sister Em, who patient lives with. Patient is @ testing. Sister states pt is independent in ADL and self care, but has emotional, psychological history that can be difficult to manage. Patient was becoming agitated and aggressive to staff this am and sister came in to assist. Sister states patient is calmer at home and she generally is able to manage. she states when he is taking his medication, he is calmer and less cussing. Sister feels alone with caring for her brothe. She states her other sister does not help much, but does offer opinions on what I should do, but she isn't there to understand. RN CM offered to have SW speak with her to see if any community assistance could be beneficial for their situation. -patient in not always compliant with his medications, though they are packaged by [facility] and sister attempts to assist -BGM machine is not functioning and patient is not compliant with reliable blood glucose monitoring or diet. (sister stated he recently ate an entire cheescake). Presentation: chest pain. Diagnosis: chest pain PCP: Dr. Trinidad Specialists: Dr. Nguyen, cardiology. Insurance: [facility] Preferred Pharmacy: [facility] Prescription Benefit: yes LNOK: 2 sisters: Em and Ann Marie Living Arrangements: Lives with sister Em 2 story home, 2 steps to enter. Tranportation: sister Em or [employer]. DME: shower chair, cane, glucometer- broken, hand held shower JACOB Referral: JACOB Beckford updated on sister's stress re: assisting her brother @ home. [facility]HC: [facility] past SNF: none Patient DC Goals: Home with sister Em. DC Plan: Home with Em bishop. Recommend new script for BGM and supplies as sister reports his machine is broken. CM available for discharge planning coordination. Contact CM for any concerns/needs that may arise. Heber ARRIOLAN RN ACM
--- NOTE | 2019-11-15 13:04 | PCM.PN.HOSP ---
Reason for Visit: Ileus Subjective: Mild abdominal pain, however still bloated and tender. No nausea/vomiting. Tolerating clears. No BM. + Flatus. No sob/cough/fever/chills. Vitals/I&O's: Vital Signs Temp Pulse Resp BP Pulse Ox 98.4 F 92 16 141/93 H 94 11/15/19 09:07 11/15/19 09:07 11/15/19 09:07 11/15/19 09:07 11/15/19 09:07 Oxygen Delivery Method Room Air Weight: 175 lb 4.28 oz Body Mass Index (BMI) 25.9 Finger Stick Blood Glucose 380 Intake and Output for Last 24 Hours 11/13/19 11/14/19 11/15/19 23:59 23:59 23:59 Intake Total 1087.5 / 1487.5 2440 / 2440 874.17 / 874.17 Output Total Balance 1087.5 / 1487.5 2439 / 2439 874.17 / 874.17 General: Alert, Oriented x3, Cooperative HEENT: Atraumatic, PERRLA, EOMI, Normocephalic Neck: Supple, No JVD, Negative Carotid Bruits Lungs: Clear to auscultation, Normal air movement Cardiovascular: Regular rate, No murmurs Abdomen: Bowel Sounds Present, Soft, Distended, Tender Extremities: No edema, Capillary Refill Less than 3 Seconds Skin: No rashes, No breakdown Musculoskeletal: No Tenderness to Palpation of Joints or Extremities Neurological: Cranial nerves II-XII grossly intact Psych/Mental Status: Normal Affect, Appropriate, Alert and oriented to time, place, person, mood and affect Laboratory Results 11/14/19 15:57: POC Glucose 180 H 11/14/19 21:04: POC Glucose 191 H 11/15/19 05:14: WBC 10.7, RBC 4.37 L, Hgb 13.2, Hct 40.2, MCV 92.0, MCH 30.2, MCHC 32.8, RDW Std Deviation 43.8, RDW Coeff of Shashank 13.2, Plt Count 290, MPV 10.2, Immature Gran % (Auto) 0.500, Neut % (Auto) 71.2 H, Lymph % (Auto) 15.2 L, [place] % (Auto) 8.9, Eos % (Auto) 3.7, Baso % (Auto) 0.5, Absolute Neuts (auto) 7.7, Absolute Lymphs (auto) 1.63, Nucleated RBC % 0 11/15/19 05:14: Sodium 141, Potassium 4.5, Chloride 110 H, Carbon Dioxide 25.0, Anion Gap 6, BUN 33 H, Creatinine 2.26 H, Estim Creat Clear Calc 30.41, Est GFR (MDRD) Af Amer 37 L, Est GFR (MDRD) Non-Af 31 L, BUN/Creatinine Ratio 14.6, Glucose 173 H, Calcium 9.0 11/15/19 06:19: POC Glucose 181 H Current Medications Acetaminophen (Tylenol) 650 mg PO Q6H PRN PRN PRN Reason: Pain Score 1-10/Temp > 100.7 F Amlodipine Besylate (Norvasc) 10 mg PO DAILY [facility] Last Admin: 11/15/19 08:33 Dose: 10 mg Documented by: Aspirin (Ecotrin) 81 mg PO DAILY@0800 [facility] Last Admin: 11/15/19 08:32 Dose: 81 mg Documented by: Calcium Carbonate (Tums) 1,000 mg PO Q4H PRN PRN PRN Reason: INDIGESTION Last Admin: 11/14/19 06:29 Dose: 1,000 mg Documented by: Carvedilol (Coreg) 6.25 mg PO BID [facility] Last Admin: 11/15/19 08:33 Dose: 6.25 mg Documented by: Dextrose (D50w Syringe) 0 gm IV X1 PRN; Protocol PRN Reason: Hypoglycemia Ferrous Sulfate (Ferrous Sulfate) 325 mg PO DAILY@1200 [facility] Last Admin: 11/14/19 11:32 Dose: Not Given Documented by: [facility] Last Admin: 11/15/19 08:32 Dose: 600 mg Documented by: Glucagon () 1 mg IM .X1 PRN PRN Reason: Hypoglycemia Sodium Chloride () 500 mls @ 15 mls/hr IV PRN PRN PRN Reason: Blood Transfusion Sodium Chloride () 250 mls @ 15 mls/hr IV .[id number] PRN PRN Reason: Saline Flush Sodium Chloride () 250 mls @ 15 mls/hr IV .[id number] PRN PRN Reason: Additional IVPB Infusion Sodium Chloride () 1,000 mls @ 125 mls/hr IV .Q8H [facility] Last Infusion: 11/15/19 09:51 Dose: 0 mls/hr Documented by: Insulin Glargine (Lantus (Bkc)) 10 units SC QHS [facility] Last Admin: 11/14/19 21:07 Dose: Not Given Documented by: Insulin Human Lispro (Humalog Kwikpen (Bk)) 0 unit SC ACHS [facility]; Protocol Last Admin: 11/15/19 06:22 Dose: Not Given Documented by: Insulin Human Lispro (Humalog Kwikpen (Bkc)) 5 unit SC TIDAC [facility] Last Admin: 11/15/19 06:23 Dose: Not Given Documented by: Levothyroxine Sodium (Synthroid) 112 mcg PO DAILY@0600 [facility] Last Admin: 11/15/19 06:20 Dose: 112 mcg Documented by: Melatonin (Melatonin) 3 mg PO QHS PRN PRN PRN Reason: INSOMNIA Last Admin: 11/14/19 21:06 Dose: 3 mg Documented by: Nitroglycerin (Nitrostat) 0.4 mg SUBLINGUAL Q5M PRN PRN Reason: CARDIAC/CHEST PAIN Ondansetron HCl (Zofran) 4 mg IV Q8H PRN PRN PRN Reason: NAUSEA/VOMITING Last Admin: 11/14/19 12:18 Dose: 4 mg Documented by: Oxybutynin Chloride (Ditropan) 5 mg PO TID [facility] Last Admin: 11/15/19 06:20 Dose: 5 mg Documented by: Promethazine HCl (Phenergan) 12.5 mg IV Q6H PRN PRN PRN Reason: NAUSEA/VOMITING Last Admin: 11/14/19 08:22 Dose: 12.5 mg Documented by: Sodium Chloride () 10 - 40 ml IV UD PRN PRN Reason: SALINE FLUSH Last Admin: 11/14/19 12:18 Dose: 10 ml Documented by: Ticagrelor (Brilinta) 90 mg PO BID [facility] Last Admin: 11/15/19 08:32 Dose: 90 mg Documented by: STROKE Vital Signs/Narrative: Vital Signs Temp Pulse Resp BP Pulse Ox 11/15/19 09:07 98.4 F 92 16 141/93 H 94 Medical Necessity - Tobacco Use Smoking Status: Never smoker Assessment/Plan All Active Problems (Last Reviewed 08/11/19 @ 13:30 by Jess Sow) Atrial fibrillation with rapid ventricular response (Acute) Change in mental status (Acute) Cellulitis (Resolved) Scalp laceration (Resolved) 1. Ileus - Small bowel follow through today. pending. thermostat machine tender and bolated. Tolerating clears. + Flatus. Leukocytosis resolved 2. RIVAS - resolving 3. Chest pain, hx CAD - patient complained of chest pain and held his stomach, and has abdominal pain and + ileus. Likely pain 2/2 ileus. EKG negative. Trop neg x 3. Continue asa/brillinta, 4. DMt2 - continue SSI (increased), lantus. 5. Hx TBI, bipolar disorder - ability qmonth. 6. Hypothyroidism - synthroid. TSH normal. DVT ppx: SCDs DC planning: lives with sister. This patient was seen by Dale Malone PA-C under the supervision of Dr. Mackenzie
[2019-11-15] MEDS: Insulin Lispro 100 UNIT/ML INSULN.PEN SC (13:20)
[2019-11-15 13:26] LABS: Bedside Glucose 244 mg/dL (70-110)
[2019-11-15] MEDS: 0.9% Normal Saline 1,000 ML 125 ML IV ×2 (14:22→22:29)
--- NOTE | 2019-11-15 16:18 | CON.PCM_ITS ---
Problem List (1) Partial small bowel obstruction Status: Acute Reason for Consult Date of Consultation: 11/15/19 History of Present Illness: The patient is a 68 year old M with a PMH as below who presents from home with chest pain and palpitations. 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 He is very tangential in his speech and talks about taking pills with Pepcid an d having difficulty swallowing water last night he comes around the same that he has been having some chest pain as well that started may be an hour prior to admission. It is hard to elucidate if anything makes it better or worse and he is focused on calling his Sister Ann Marie. Chart review demonstrates that he had a STEMI in 2018 and he underwent a cardiac cath with placement of a LAURE to the mid LAD. At the time his EF was 50 to 55% with moderate to severe anteroapical hypokinesis with a normal right ventricular systolic pressure. In the ER his vital signs are stable and his initial troponin was normal, with an unchanged EKG Patient had abdominal x-ray today which showed IMPRESSION: Partial small bowel obstruction with the transitional zone in the left mid abdomen at the junction of the jejunum and ileum. Past Medical History Past Medical History (Chronic Problems): Chronic Problems (Last Reviewed 08/11/19 @ 13:30 by Jess Sow) CRI (chronic renal insufficiency) (Chronic) Atherosclerotic heart disease of [place] coronary artery without angina pectoris (Chronic) Anterior STEMI, LAURE to mid LAD: 2.5 X [address] Nguyen @ [facility] Stented coronary artery (Chronic 11/19/17) LAURE to mid LAD: 2.5 X [address] Nguyen @ [facility] STEMI (ST elevation myocardial infarction) (Chronic 11/19/17) Anterior STEMI in October 2017 Diabetes mellitus, type II (Chronic) BG readings checked at various times of day. Range 58-200+ He does have a pattern of waking with low Bg. Will reduce his pm lantus today and have him call back office with any further low BG. Reports taking insulin as directed as well as his oral agents. Is due for labs and I have ask him to do these today or tomorrow. BP recheck 134/76 Bipolar disorder (Chronic) Atrial fibrillation (Chronic) Hyperlipidemia (Chronic) Neuropathy (Chronic) Hypertension (Chronic) Gout (Chronic) Traumatic brain injury (Chronic) Arthritis (Chronic) Medical History: Medical History (Last Reviewed 11/15/19 @ 16:[address] Chito Horton MD) Atherosclerotic heart disease of [place] coronary artery without angina pectoris (Chronic) I25.10 Anterior STEMI, LAURE to mid LAD: 2.5 X [address] Nguyen @ [facility] STEMI (ST elevation myocardial infarction) (Chronic) Onset Date: 11/19/17 I21.3 Anterior STEMI in October 2017 Diabetes mellitus, type II (Chronic) E11.9 BG readings checked at various times of day. Range 58-200+ He does have a pattern of waking with low Bg. Will reduce his pm lantus today and have him call back office with any further low BG. Reports taking insulin as directed as well as his oral agents. Is due for labs and I have ask him to do these today or tomorrow. BP recheck 134/76 Bipolar disorder (Chronic) F31.9 Hyperlipidemia (Chronic) E78.5 Neuropathy (Chronic) G62.9 Hypertension (Chronic) I10 Traumatic brain injury (Chronic) S06.9X9A Arthritis (Chronic) M19.90 Afib I48.91 Anxiety F41.9 Arthritis M19.90 Back problem M53.9 Cataracts, bilateral H26.9 Depression F32.9 Diabetes type 2, controlled E11.9 GI problem R19.8 Headache R51 Heart disease I51.9 High cholesterol E78.00 Kidney disease N28.9 Osteoarthritis M19.90 Recurrent UTI N39.0 Seasonal allergies J30.2 HTN (hypertension) I10 Allergies atorvastatin [From Lipitor] Allergy (Verified 11/13/19 06:12) Unknown Penicillins Allergy (Verified 11/13/19 06:12) Unknown lisinopril Adverse Reaction (Unknown, Verified 11/13/19 06:12) unknown codeine Adverse Reaction (Verified 11/13/19 06:12) Upset Stomach doxycycline Adverse Reaction (Verified 11/13/19 06:12) Other nickel Adverse Reaction (Verified 11/13/19 06:12) Rash LYCOPEEN Adverse Reaction (Uncoded 11/13/19 06:12) Other Home Medications: Ambulatory Orders Medication Instructions Recorded Ferrous Sulfate [Iron] 325 mg PO DAILY 04/09/16 Gabapentin [Neurontin] 600 mg PO BID 04/09/16 Multivitamin [Daily Multiple 1 tab PO DAILY 09/07/16 Vitamin] aspirin 81 mg tablet,delayed 81 mg PO QDAY 02/27/17 release nitroglycerin 0.4 mg sublingual 0.4 mg SUBLINGUAL Q5M PRN 02/27/17 tablet Carvedilol [Coreg (Beta Tulio)] 6.25 mg PO BID #60 tab 11/21/17 Liraglutide [Victoza] 1.2 mg SQ DAILY 01/01/18 Oxybutynin [Ditropan] 5 mg PO TID 01/01/18 amlodipine 10 mg tablet 10 mg PO DAILY 02/03/19 cholecalciferol (vitamin D3) 25 1,000 unit PO DAILY 02/03/19 mcg (1,000 unit) capsule levothyroxine 112 mcg capsule 112 mcg PO DAILY 08/24/19 ticagrelor 90 mg tablet 90 mg PO BID #60 tab 08/24/19 Aripiprazole [Abilify Maintena] 400 mg IM QMONTH 11/13/19 Ticagrelor [Brilinta] 90 mg PO BID 11/13/19 Surgical History: Surgical History (Last Reviewed 11/15/19 @ 16:[address] Chito Horton MD) Stented coronary artery (Chronic) Onset Date: 11/19/17 Z95.5 LAURE to mid LAD: 2.5 X [address] Nguyen @ [facility] Surgical History: - - Cardiac catheterization, T+A, R cataract, L shoulder surgery, R TKR. Psychiatric History: Bipolar, Schizophrenia Smoking Status: Never smoker Alcohol: None Drugs: None - *Family History Maternal Family History: Family History (Last Reviewed 08/11/19 @ 13:30 by Jess Sow) Father Arthritis Bleeding disorder Heart disease Hypertension Mother Hypertension History Items: - Paternal Family History: Family History (Last Reviewed 08/11/19 @ 13:30 by Jess Sow) Father Arthritis Bleeding disorder Heart disease Hypertension Mother Hypertension History Items: - Review of Systems Constitutional: Denies: Chills, Fever, Weight Change Respiratory: Denies: Cough, Hemoptysis, Shortness of breath at rest, Shortness of breath upon exertion, Wheezing Gastrointestinal: Denies: Abdominal Pain, Constipation, Diarrhea, Hematemesis, Nausea, Melena, Vomiting Patient Problems: Active and Suspected Problems (Last Reviewed 08/11/19 @ 13:30 by Jess Sow) Partial small bowel obstruction (Acute) - Physical Exam Vitals/I&O's: Vital Signs Temp Pulse Resp BP Pulse Ox 98.7 F 72 16 146/83 H 96 11/15/19 15:05 11/15/19 15:05 11/15/19 15:05 11/15/19 15:05 11/15/19 15:05 Oxygen Delivery Method Room Air Weight: 175 lb 4.28 oz Body Mass Index (BMI) 25.9 Finger Stick Blood Glucose 380 Intake and Output for Last 24 Hours 11/13/19 11/14/19 11/15/19 23:59 23:59 23:59 Intake Total 1087.5 / 1487.5 2440 / 2440 1030.00 / 1030.00 Output Total 900 / 900 Balance 1087.5 / 1487.5 2439 / 2439 130.00 / 130.00 General: Alert, Oriented x3 Lungs: Clear to auscultation Cardiovascular: Regular rate, Regular Rhythm, No murmurs Abdomen: Bowel Sounds Present, Soft, Non Tender, Non-Distended Laboratory Results 11/14/19 21:04: POC Glucose 191 H 11/15/19 05:14: WBC 10.7, RBC 4.37 L, Hgb 13.2, Hct 40.2, MCV 92.0, MCH 30.2, MCHC 32.8, RDW Std Deviation 43.8, RDW Coeff of Shashank 13.2, Plt Count 290, MPV 10.2, Immature Gran % (Auto) 0.500, Neut % (Auto) 71.2 H, Lymph % (Auto) 15.2 L, Catron % (Auto) 8.9, Eos % (Auto) 3.7, Baso % (Auto) 0.5, Absolute Neuts (auto) 7.7, Absolute Lymphs (auto) 1.63, Nucleated RBC % 0 11/15/19 05:14: Sodium 141, Potassium 4.5, Chloride 110 H, Carbon Dioxide 25.0, Anion Gap 6, BUN 33 H, Creatinine 2.26 H, Estim Creat Clear Calc 30.41, Est GFR (MDRD) Af Amer 37 L, Est GFR (MDRD) Non-Af 31 L, BUN/Creatinine Ratio 14.6, Glucose 173 H, Calcium 9.0 11/15/19 06:19: POC Glucose 181 H 11/15/19 13:19: POC Glucose 244 H Current Medications Acetaminophen (Tylenol) 650 mg PO Q6H PRN PRN PRN Reason: Pain Score 1-10/Temp > 100.7 F Amlodipine Besylate (Norvasc) 10 mg PO DAILY [facility] Last Admin: 11/15/19 08:33 Dose: 10 mg Documented by: Aspirin (Ecotrin) 81 mg PO DAILY@0800 [facility] Last Admin: 11/15/19 08:32 Dose: 81 mg Documented by: Calcium Carbonate (Tums) 1,000 mg PO Q4H PRN PRN PRN Reason: INDIGESTION Last Admin: 11/14/19 06:29 Dose: 1,000 mg Documented by: Carvedilol (Coreg) 6.25 mg PO BID [facility] Last Admin: 11/15/19 08:33 Dose: 6.25 mg Documented by: Dextrose (D50w Syringe) 0 gm IV X1 PRN; Protocol PRN Reason: Hypoglycemia Ferrous Sulfate (Ferrous Sulfate) 325 mg PO DAILY@1200 [facility] Last Admin: 11/15/19 15:22 Dose: Not Given Documented by: Gabapentin (Neurontin) 600 mg PO BIDCM [facility] Last Admin: 11/15/19 08:32 Dose: 600 mg Documented by: Glucagon () 1 mg IM .X1 PRN PRN Reason: Hypoglycemia Sodium Chloride () 500 mls @ 15 mls/hr IV PRN PRN PRN Reason: Blood Transfusion Sodium Chloride () 250 mls @ 15 mls/hr IV .[id number] PRN PRN Reason: Saline Flush Sodium Chloride () 250 mls @ 15 mls/hr IV .[id number] PRN PRN Reason: Additional IVPB Infusion Sodium Chloride () 1,000 mls @ 125 mls/hr IV .Q8H [facility] Last Admin: 11/15/19 14:22 Dose: 125 mls/hr Documented by: Insulin Glargine (Lantus (Bkc)) 10 units SC QHS [facility] Last Admin: 11/14/19 21:07 Dose: Not Given Documented by: Insulin Human Lispro (Humalog Kwikpen (Bkc)) 0 unit SC ACHS [facility]; Protocol Last Admin: 11/15/19 13:20 Dose: 3 units Documented by: Insulin Human Lispro (Humalog Kwikpen (Bkc)) 5 unit SC TIDAC [facility] Last Admin: 11/15/19 13:20 Dose: Not Given Documented by: Levothyroxine Sodium (Synthroid) 112 mcg PO DAILY@0600 [facility] Last Admin: 11/15/19 06:20 Dose: 112 mcg Documented by: Melatonin (Melatonin) 3 mg PO QHS PRN PRN PRN Reason: INSOMNIA Last Admin: 11/14/19 21:06 Dose: 3 mg Documented by: Nitroglycerin (Nitrostat) 0.4 mg SUBLINGUAL Q5M PRN PRN Reason: CARDIAC/CHEST PAIN Ondansetron HCl (Zofran) 4 mg IV Q8H PRN PRN PRN Reason: NAUSEA/VOMITING Last Admin: 11/14/19 12:18 Dose: 4 mg Documented by: Promethazine HCl (Phenergan) 12.5 mg IV Q6H PRN PRN PRN Reason: NAUSEA/VOMITING Last Admin: 11/14/19 08:22 Dose: 12.5 mg Documented by: Sodium Chloride () 10 - 40 ml IV UD PRN PRN Reason: SALINE FLUSH Last Admin: 11/14/19 12:18 Dose: 10 ml Documented by: Ticagrelor (Brilinta) 90 mg PO BID [facility] Last Admin: 11/15/19 08:32 Dose: 90 mg Documented by: Assessment/Plan All Active Problems (Last Reviewed 08/11/19 @ 13:30 by Jess Sow) Atrial fibrillation with rapid ventricular response (Acute) Partial small bowel obstruction (Acute) Change in mental status (Acute) Cellulitis (Resolved) Scalp laceration (Resolved) At this point I think that we can allow him to try to take some liquids his abdomen is extremely soft flat and I do not think that there is any surgical interventions that need to be performed at this time. Office Visits / Consults: [id number] IP Consult L3
[2019-11-15 16:50] LABS: Bedside Glucose 136 mg/dL (70-110)
[2019-11-15 21:31] LABS: Bedside Glucose 200 mg/dL (70-110)
[2019-11-16 03:00] VITALS: PULSE 72
[2019-11-16 03:05] VITALS: BP 138/78; PULSE 76; RESP 16; TEMP 36.7; O2SAT 94
[2019-11-16] MEDS: Levothyroxine 112 MCG Tablet PO (05:49)
[2019-11-16 05:59] LABS: ALB/GLOB Ratio 0.7 RATIO (0.9-2.4); AST(SGOT) 14 U/L (15-37); Alanine Aminotransfer ALT/SGPT 18 U/L (16-61); Albumin, Serum 2.6 g/dL (3.2-5.0); Alkaline Phosphatase 76 U/L (45-117); Anion Gap 5 (5-15); BUN 30 mg/dL (7-18); BUN/Creat Ratio 15.6 RATIO (10-20); Calcium,Total 8.7 mg/dL (8.5-10.1); Chloride 112 mmol/L (98-107); Creatinine, Serum 1.92 mg/dL (0.70-1.30); EST Glomerular Filtration Rate 37 mL/min (>60); Est Glom Filt Rate - Afr Amer 45 mL/min (>60); Globulin 3.7 g/dL (2.2-4.2); Glucose 118 mg/dL (74-106); Potassium 3.7 mmol/L (3.5-5.1); Protein, Total 6.3 g/dL (6.4-8.2); Sodium Level 143 mmol/L (136-145)
[2019-11-16] MEDS: 0.9% Normal Saline 1,000 ML 125 ML IV (06:31)
[2019-11-16 06:44] VITALS: PULSE 73
[2019-11-16] MEDS: Insulin Lispro 100 UNIT/ML INSULN.PEN SC ×4 (08:28→11:30)
[2019-11-16] MEDS: Gabapentin 600 MG Tablet PO (08:29)
[2019-11-16] MEDS: Aspirin E.C. 81 MG Tablet PO (08:29)
[2019-11-16] MEDS: Carvedilol 6.25 MG Tablet PO (08:29)
[2019-11-16] MEDS: TICAGRELOR 90 MG TABLET PO (08:29)
[2019-11-16] MEDS: amLODIPine 10 MG Tablet PO (08:30)
[2019-11-16 08:37] VITALS: BP 174/88; PULSE 83; RESP 22; TEMP 37; O2SAT 96
[2019-11-16 09:10] LABS: Bedside Glucose 181 mg/dL (70-110)
[2019-11-16 09:10] LABS: Bedside Glucose 190 mg/dL (70-110)
[2019-11-16] MEDS: Bisacodyl 10 MG Suppository RECTAL (10:06)
--- NOTE | 2019-11-16 11:22 | DCINST_ITS ---
- Discharge Diagnoses Current Active Problems: Current Active and Chronic Problems (Last Reviewed 11/15/19 @ 16:[address] Chito Horton MD) Partial small bowel obstruction (Acute) You will use the following diet at home:: Cardiac Your food should be the consistency of: Regular Your liquids should be the consistency of: Regular/Thin Discharge Activity: Return to Normal Activity Allergies/Adverse Reactions: Allergies atorvastatin [From Lipitor] Allergy (Verified 11/13/19 06:12) Unknown Penicillins Allergy (Verified 11/13/19 06:12) Unknown lisinopril Adverse Reaction (Unknown, Verified 11/13/19 06:12) unknown codeine Adverse Reaction (Verified 11/13/19 06:12) Upset Stomach doxycycline Adverse Reaction (Verified 11/13/19 06:12) Other nickel Adverse Reaction (Verified 11/13/19 06:12) Rash LYCOPEEN Adverse Reaction (Uncoded 11/13/19 06:12) Other Medications to take at Discharge Ferrous Sulfate [Iron] 325 mg PO DAILY 04/09/16 Gabapentin [Neurontin] 600 mg PO BID 04/09/16 Multivitamin [Daily Multiple Vitamin] 1 tab PO DAILY 09/07/16 aspirin 81 mg tablet,delayed release 81 mg PO QDAY 02/27/17 nitroglycerin 0.4 mg sublingual tablet 0.4 mg SUBLINGUAL Q5M PRN 02/27/17 Carvedilol [Coreg (Beta Tulio)] 6.25 mg PO BID #60 tab 11/21/17 Liraglutide [Victoza] 1.2 mg SQ DAILY 01/01/18 Oxybutynin [Ditropan] 5 mg PO TID 01/01/18 amlodipine 10 mg tablet 10 mg PO DAILY 02/03/19 cholecalciferol (vitamin D3) 25 mcg (1,000 unit) capsule 1,000 unit PO DAILY 02/03/19 levothyroxine 112 mcg capsule 112 mcg PO DAILY 08/24/19 ticagrelor 90 mg tablet 90 mg PO BID #60 tab 08/24/19 Aripiprazole [Abilify Maintena] 400 mg IM QMONTH 11/13/19 Ticagrelor [Brilinta] 90 mg PO BID 11/13/19 Primary Care Physician: Issa Trinidad MD [Primary Care Provider] - Please follow up with your Primary Care Physician in: 1-2 weeks Test Results: Test results from this visit will be discussed in further detail at your follow- up appointment, if applicable. Please Follow Up With: Issa Trinidad MD Proposed Discharge Date: 11/16/19
--- NOTE | 2019-11-16 11:24 | PCM.DC.SUM ---
Discharge Date and Diagnosis - Problem List Patient Problems: Active and Suspected Problems (Last Reviewed 11/15/19 @ 16:[address] Chito Horton MD) Partial small bowel obstruction (Acute) Date of Admission: 11/13/19 Date of Discharge: 11/16/19 - Primary Discharge Diagnosis Acute Problems: Active Problems (Last Reviewed 11/15/19 @ 16:[address] Chito Horton MD) Partial small bowel obstruction (Acute) - Secondary Discharge Diagnosis Chronic Problems: Chronic Problems (Last Reviewed 11/15/19 @ 16:[address] Chito Horton MD) CRI (chronic renal insufficiency) (Chronic) Atherosclerotic heart disease of [place] coronary artery without angina pectoris (Chronic) Anterior STEMI, LAURE to mid LAD: 2.5 X [address] Nguyen @ [facility] Stented coronary artery (Chronic 11/19/17) LAURE to mid LAD: 2.5 X [address] Nguyen @ [facility] STEMI (ST elevation myocardial infarction) (Chronic 11/19/17) Anterior STEMI in October 2017 Diabetes mellitus, type II (Chronic) BG readings checked at various times of day. Range 58-200+ He does have a pattern of waking with low Bg. Will reduce his pm lantus today and have him call back office with any further low BG. Reports taking insulin as directed as well as his oral agents. Is due for labs and I have ask him to do these today or tomorrow. BP recheck 134/76 Bipolar disorder (Chronic) Atrial fibrillation (Chronic) Hyperlipidemia (Chronic) Neuropathy (Chronic) Hypertension (Chronic) Gout (Chronic) Traumatic brain injury (Chronic) Arthritis (Chronic) Hospital Course and Treatment Imaging Results: IMAGING: RAD/Chest 1 View (Portable) IMPRESSION: Normal x-ray examination of the chest. Echo: Interpretation Summary The estimated ejection fraction is 60 %. Trivial mitral valve insufficiency. Trivial tricuspid valve insufficiency. Pulmonary artery systolic pressure is 32,7 mmHg. Mild pulmonary hypertension. Mild concentric left ventricular hypertrophy. CT/Abdomen/Pelvis without Cont IMPRESSION: 1. Left abdominal small bowel dilatation within the jejunum likely representing underlying ileus with early small bowel obstruction not excluded and limited without oral contrast. Recommend clinical correlation. Small bowel follow-through may be obtained for further characterization and evaluation versus repeat contrast study with oral contrast. 2. Simple appearing renal cysts as above. 3. Bilateral fat-containing inguinal hernias. RAD/Chest PA and Lateral IMPRESSION: No active disease. RAD/Small Bowel Series Only IMPRESSION: Partial small bowel obstruction with the transitional zone in the left mid abdomen at the junction of the jejunum and ileum. Consults: Gen surgery - Clifford Operations: None Procedures: 2-D Echocardiogram Summary of Care Provided: Hospital course: The patient is a 68 year old M past medical history as above notably traumatic brain injury and coronary artery disease with prior stents, who presented to the emergency room with pain and palpitations. He is a poor informant secondary to a traumatic brain injury, and it was unclear if he was having chest or abdominal pain specifically. The patient had a negative EKG, negative troponin, negative chest x-ray. He was admitted to the PCU and placed on telemetry. He had negative troponin x3, he underwent an echocardiogram which demonstrated no wall motion abnormalities and he localizes pain more to his abdomen. A CT of the abdomen was obtained which demonstrated a possible ileus. A small bowel follow-through was recommended. This demonstrated bowel obstruction. General surgery was consulted. The was treated conservatively with a clear liquid diet. His pain resolved and surgery did not recommend surgical intervention at this time. We were able to advance his diet with no further issues. Patient was discharged home in stable condition. He will need to follow-up with his PCP in 1 to 2 weeks. This patient was seen by Dale Malone PA-C under the supervision of Doctor Mackenzie. [] Patient Problems: Active and Suspected Problems (Last Reviewed 11/15/19 @ 16:[address] Chito Horton MD) Partial small bowel obstruction (Acute) - Physical Exam Vitals/I&O's: Vital Signs Temp Pulse Resp BP Pulse Ox 98.6 F 83 22 H 174/88 H 96 11/16/19 08:37 11/16/19 08:37 11/16/19 08:37 11/16/19 08:37 11/16/19 08:37 Oxygen Delivery Method Room Air Weight: 175 lb 4.28 oz Body Mass Index (BMI) 25.9 Finger Stick Blood Glucose 380 Intake and Output for Last 24 Hours 11/14/19 11/15/19 11/16/19 23:59 23:59 23:59 Intake Total 2440 / 2440 2799.58 / 2799.58 1135.42 / 1135.42 Output Total 900 / 900 Balance 2439 / 2439 1899.58 / 1899.58 1135.42 / 1135.42 General: Alert, Oriented x3, Cooperative HEENT: Atraumatic, PERRLA, EOMI, Normocephalic Neck: Supple, No JVD, Negative Carotid Bruits Lungs: Clear to auscultation, Normal air movement Cardiovascular: Regular rate, No murmurs Abdomen: Bowel Sounds Present, Soft, Non Tender Extremities: No edema, Capillary Refill Less than 3 Seconds Skin: No rashes, No breakdown Musculoskeletal: No Tenderness to Palpation of Joints or Extremities Neurological: Cranial nerves II-XII grossly intact Psych/Mental Status: Normal Affect, Appropriate, Alert and oriented to time, place, person, mood and affect Laboratory Results 11/15/19 13:19: POC Glucose 244 H 11/15/19 16:42: POC Glucose 136 H 11/15/19 21:17: POC Glucose 200 H 11/16/19 03:06: POC Glucose 190 H 11/16/19 05:06: Sodium 143, Potassium 3.7, Chloride 112 H, Carbon Dioxide 26.0, Anion Gap 5, BUN 30 H, Creatinine 1.92 H, Estim Creat Clear Calc 35.80, Est GFR (MDRD) Af Amer 45 L, Est GFR (MDRD) Non-Af 37 L, BUN/Creatinine Ratio 15.6, Glucose 118 H, Calcium 8.7, Total Bilirubin 0.50, AST 14 L, ALT 18, Alkaline Phosphatase 76, Total Protein 6.3 L, Albumin 2.6 L, Globulin 3.7, Albumin/Globulin Ratio 0.7 L 11/16/19 08:26: POC Glucose 181 H Current Medications Acetaminophen (Tylenol) 650 mg PO Q6H PRN PRN PRN Reason: Pain Score 1-10/Temp > 100.7 F Amlodipine Besylate (Norvasc) 10 mg PO DAILY [facility] Last Admin: 11/16/19 08:30 Dose: 10 mg Documented by: Aspirin (Ecotrin) 81 mg PO DAILY@0800 [facility] Last Admin: 11/16/19 08:29 Dose: 81 mg Documented by: Calcium Carbonate (Tums) 1,000 mg PO Q4H PRN PRN PRN Reason: INDIGESTION Last Admin: 11/14/19 06:29 Dose: 1,000 mg Documented by: Carvedilol (Coreg) 6.25 mg PO BID [facility] Last Admin: 11/16/19 08:29 Dose: 6.25 mg Documented by: Dextrose (D50w Syringe) 0 gm IV X1 PRN; Protocol PRN Reason: Hypoglycemia Ferrous Sulfate (Ferrous Sulfate) 325 mg PO DAILY@1200 [facility] Last Admin: 11/15/19 15:22 Dose: Not Given Documented by: [facility] Last Admin: 11/16/19 08:29 Dose: 600 mg Documented by: Glucagon () 1 mg IM .X1 PRN PRN Reason: Hypoglycemia Hydralazine HCl (Apresoline Iv) 10 mg IV Q6H PRN PRN PRN Reason: BLOOD PRESSURE Sodium Chloride () 500 mls @ 15 mls/hr IV PRN PRN PRN Reason: Blood Transfusion Sodium Chloride () 250 mls @ 15 mls/hr IV .[id number] PRN PRN Reason: Saline Flush Sodium Chloride () 250 mls @ 15 mls/hr IV .[id number] PRN PRN Reason: Additional IVPB Infusion Sodium Chloride () 1,000 mls @ 125 mls/hr IV .Q8H [facility] Last Admin: 11/16/19 06:31 Dose: 125 mls/hr Documented by: Insulin Glargine (Lantus (Bkc)) 10 units SC QHS [facility] Last Admin: 11/15/19 21:19 Dose: 10 u Documented by: Insulin Human Lispro (Humalog Kwikpen (Bkc)) 0 unit SC ACHS [facility]; Protocol Last Admin: 11/16/19 08:28 Dose: 1 units Documented by: Insulin Human Lispro (Humalog Kwikpen (Bkc)) 5 unit SC TIDAC [facility] Last Admin: 11/16/19 08:29 Dose: 5 unit Documented by: Levothyroxine Sodium (Synthroid) 112 mcg PO DAILY@0600 [facility] Last Admin: 11/16/19 05:49 Dose: 112 mcg Documented by: Melatonin (Melatonin) 3 mg PO QHS PRN PRN PRN Reason: INSOMNIA Last Admin: 11/14/19 21:06 Dose: 3 mg Documented by: Nitroglycerin (Nitrostat) 0.4 mg SUBLINGUAL Q5M PRN PRN Reason: CARDIAC/CHEST PAIN Ondansetron HCl (Zofran) 4 mg IV Q8H PRN PRN PRN Reason: NAUSEA/VOMITING Last Admin: 11/14/19 12:18 Dose: 4 mg Documented by: Promethazine HCl (Phenergan) 12.5 mg IV Q6H PRN PRN PRN Reason: NAUSEA/VOMITING Last Admin: 11/14/19 08:22 Dose: 12.5 mg Documented by: Sodium Chloride () 10 - 40 ml IV UD PRN PRN Reason: SALINE FLUSH Last Admin: 11/14/19 12:18 Dose: 10 ml Documented by: Ticagrelor (Brilinta) 90 mg PO BID [facility] Last Admin: 11/16/19 08:29 Dose: 90 mg Documented by: Discharge Diet: Low fat/ Low Cholesterol, 2000 mg Sodium Diet Discharge Activity: Return to Normal Activity Home Medications: Medications to take at Discharge Ferrous Sulfate [Iron] 325 mg PO DAILY 04/09/16 Gabapentin [Neurontin] 600 mg PO BID 04/09/16 Multivitamin [Daily Multiple Vitamin] 1 tab PO DAILY 09/07/16 aspirin 81 mg tablet,delayed release 81 mg PO QDAY 02/27/17 nitroglycerin 0.4 mg sublingual tablet 0.4 mg SUBLINGUAL Q5M PRN 02/27/17 Carvedilol [Coreg (Beta Tulio)] 6.25 mg PO BID #60 tab 11/21/17 Liraglutide [Victoza] 1.2 mg SQ DAILY 01/01/18 Oxybutynin [Ditropan] 5 mg PO TID 01/01/18 amlodipine 10 mg tablet 10 mg PO DAILY 02/03/19 cholecalciferol (vitamin D3) 25 mcg (1,000 unit) capsule 1,000 unit PO DAILY 02/03/19 levothyroxine 112 mcg capsule 112 mcg PO DAILY 08/24/19 ticagrelor 90 mg tablet 90 mg PO BID #60 tab 08/24/19 Aripiprazole [Abilify Maintena] 400 mg IM QMONTH 11/13/19 Ticagrelor [Brilinta] 90 mg PO BID 11/13/19 Primary Care Physician: Issa Trinidad MD [Primary Care Provider] - Please follow up with your Primary Care Physician in: 1-2 weeks Please Follow Up With: Issa Trinidad MD Disposition: Home Minutes spent on discharge:: 35 Patient Condition:: Stable Medical Necessity - Tobacco Use Smoking Status: Never smoker Meaningful Use Info Meaningful Use Diagnoses (Choose all that apply): None applicable
--- NOTE | 2019-11-16 11:25 | PN.SURG_ITS ---
Patient Problems: Active and Suspected Problems (Last Reviewed 11/15/19 @ 16:[address] Chito Horton MD) Partial small bowel obstruction (Acute) Subjective: Patient is passing flatus he has no nausea or vomiting Objective: Abdomen is soft and nontender - Physical Exam Vitals/I&O's: Vital Signs Temp Pulse Resp BP Pulse Ox 98.6 F 83 22 H 174/88 H 96 11/16/19 08:37 11/16/19 08:37 11/16/19 08:37 11/16/19 08:37 11/16/19 08:37 Oxygen Delivery Method Room Air Weight: 175 lb 4.28 oz Body Mass Index (BMI) 25.9 Finger Stick Blood Glucose 380 Intake and Output for Last 24 Hours 11/14/19 11/15/19 11/16/19 23:59 23:59 23:59 Intake Total 2440 / 2440 2799.58 / 2799.58 1135.42 / 1135.42 Output Total 900 / 900 Balance 2439 / 2439 1899.58 / 1899.58 1135.42 / 1135.42 Laboratory Results 11/15/19 13:19: POC Glucose 244 H 11/15/19 16:42: POC Glucose 136 H 11/15/19 21:17: POC Glucose 200 H 11/16/19 03:06: POC Glucose 190 H 11/16/19 05:06: Sodium 143, Potassium 3.7, Chloride 112 H, Carbon Dioxide 26.0, Anion Gap 5, BUN 30 H, Creatinine 1.92 H, Estim Creat Clear Calc 35.80, Est GFR (MDRD) Af Amer 45 L, Est GFR (MDRD) Non-Af 37 L, BUN/Creatinine Ratio 15.6, Glucose 118 H, Calcium 8.7, Total Bilirubin 0.50, AST 14 L, ALT 18, Alkaline Phosphatase 76, Total Protein 6.3 L, Albumin 2.6 L, Globulin 3.7, Albumin/Globulin Ratio 0.7 L 11/16/19 08:26: POC Glucose 181 H Current Medications Acetaminophen (Tylenol) 650 mg PO Q6H PRN PRN PRN Reason: Pain Score 1-10/Temp > 100.7 F Amlodipine Besylate (Norvasc) 10 mg PO DAILY [facility]DO Last Admin: 11/16/19 08:30 Dose: 10 mg Documented by: Aspirin (Ecotrin) 81 mg PO DAILY@0800 [facility] Last Admin: 11/16/19 08:29 Dose: 81 mg Documented by: Calcium Carbonate (Tums) 1,000 mg PO Q4H PRN PRN PRN Reason: INDIGESTION Last Admin: 11/14/19 06:29 Dose: 1,000 mg Documented by: Carvedilol (Coreg) 6.25 mg PO BID [facility] Last Admin: 11/16/19 08:29 Dose: 6.25 mg Documented by: Dextrose (D50w Syringe) 0 gm IV X1 PRN; Protocol PRN Reason: Hypoglycemia Ferrous Sulfate (Ferrous Sulfate) 325 mg PO DAILY@1200 [facility] Last Admin: 11/15/19 15:22 Dose: Not Given Documented by: [facility] Admin: 11/16/19 08:29 Dose: 600 mg Documented by: Glucagon () 1 mg IM .X1 PRN PRN Reason: Hypoglycemia Hydralazine HCl (Apresoline Iv) 10 mg IV Q6H PRN PRN PRN Reason: BLOOD PRESSURE Sodium Chloride () 500 mls @ 15 mls/hr IV PRN PRN PRN Reason: Blood Transfusion Sodium Chloride () 250 mls @ 15 mls/hr IV .[id number] PRN PRN Reason: Saline Flush Sodium Chloride () 250 mls @ 15 mls/hr IV .[id number] PRN PRN Reason: Additional IVPB Infusion Sodium Chloride () 1,000 mls @ 125 mls/hr IV .Q8H [facility] Last Admin: 11/16/19 06:31 Dose: 125 mls/hr Documented by: Insulin Glargine (Lantus (Bkc)) 10 units SC QHS [facility] Last Admin: 11/15/19 21:19 Dose: 10 u Documented by: Insulin Human Lispro (Humalog Kwikpen (Bkc)) 0 unit SC ACHS [facility]; Protocol Last Admin: 11/16/19 08:28 Dose: 1 units Documented by: Insulin Human Lispro (Humalog Kwikpen (Bkc)) 5 unit SC TIDAC [facility] Last Admin: 11/16/19 08:29 Dose: 5 unit Documented by: Levothyroxine Sodium (Synthroid) 112 mcg PO DAILY@0600 [facility] Last Admin: 11/16/19 05:49 Dose: 112 mcg Documented by: Melatonin (Melatonin) 3 mg PO QHS PRN PRN PRN Reason: INSOMNIA Last Admin: 11/14/19 21:06 Dose: 3 mg Documented by: Nitroglycerin (Nitrostat) 0.4 mg SUBLINGUAL Q5M PRN PRN Reason: CARDIAC/CHEST PAIN Ondansetron HCl (Zofran) 4 mg IV Q8H PRN PRN PRN Reason: NAUSEA/VOMITING Last Admin: 11/14/19 12:18 Dose: 4 mg Documented by: Promethazine HCl (Phenergan) 12.5 mg IV Q6H PRN PRN PRN Reason: NAUSEA/VOMITING Last Admin: 11/14/19 08:22 Dose: 12.5 mg Documented by: Sodium Chloride () 10 - 40 ml IV UD PRN PRN Reason: SALINE FLUSH Last Admin: 11/14/19 12:18 Dose: 10 ml Documented by: Ticagrelor (Brilinta) 90 mg PO BID [facility] Last Admin: 11/16/19 08:29 Dose: 90 mg Documented by: Medical Necessity - Tobacco Use Smoking Status: Never smoker Assessment/Plan All Active Problems (Last Reviewed 11/15/19 @ 16:[address] Chito Horton MD) Atrial fibrillation with rapid ventricular response (Acute) Partial small bowel obstruction (Acute) Change in mental status (Acute) Cellulitis (Resolved) Scalp laceration (Resolved) Okay to be discharged he does not need to follow-up with tn Inpatient E&M: 74703 Subs Hosp L2
[2019-11-16] MEDS: Ferrous Sulfate 325 MG Tablet PO (11:30)
[2019-11-16 11:41] LABS: Bedside Glucose 334 mg/dL (70-110)
--- NOTE | 2019-11-16 12:04 | CASEMGMT ---
Per Dr Mackenzie, pt's PCP can write for a new blood glucose monitor if they can't get his one at home working properly. Raheem SPRAGUE CM
--- NOTE | 2019-11-16 12:12 | PHA.DC.MR ---
Pharmacy Service has performed discharge medication reconciliation for this patient. The patient's discharge medication list was reviewed for discrepancies and discrepancies were resolved. Home Medications Ferrous Sulfate [Iron] 325 mg PO DAILY 04/09/16 Gabapentin [Neurontin] 600 mg PO BID 04/09/16 Multivitamin [Daily Multiple Vitamin] 1 tab PO DAILY 09/07/16 aspirin 81 mg tablet,delayed release 81 mg PO QDAY 02/27/17 nitroglycerin 0.4 mg sublingual tablet 0.4 mg SUBLINGUAL Q5M PRN 02/27/17 Carvedilol [Coreg (Beta Tulio)] 6.25 mg PO BID #60 tab 11/21/17 Liraglutide [Victoza] 1.2 mg SQ DAILY 01/01/18 Oxybutynin [Ditropan] 5 mg PO TID 01/01/18 amlodipine 10 mg tablet 10 mg PO DAILY 02/03/19 cholecalciferol (vitamin D3) 25 mcg (1,000 unit) capsule 1,000 unit PO DAILY 02/03/19 levothyroxine 112 mcg capsule 112 mcg PO DAILY 08/24/19 ticagrelor 90 mg tablet 90 mg PO BID #60 tab 08/24/19 Aripiprazole [Abilify Maintena] 400 mg IM QMONTH 11/13/19 Ticagrelor [Brilinta] 90 mg PO BID 11/13/19
--- NOTE | 2019-11-16 12:27 | CASEMGMT ---
SW called pt's sister, Em, to offer support. She has been living w/pt and caring for him for 20 years. She states she is disabled as well. SW offered to make referral to [facility] for a Passport assessment, Em is agreeable. SW faxed referral. VIC Rogers
[2019-11-16 14:31] VITALS: BP 159/84; PULSE 98; RESP 20; TEMP 37.3; O2SAT 97
--- NOTE | 2019-11-16 14:37 | NURSING ---
discharge paperwork reviewed with sister, Em, over the phone. voiced understanding.
--- NOTE | 2019-11-17 15:30 | CASEMGMT ---
[facility] Discharge F/U Phone Call LACE: 11 Strata: 3 Discharge date: 11/16/2019 Call date: 11/17/2019 Call time: [id number] Admission dx: Chest pain Pt states is doing 'pretty good' since discharge. Pt states no questions regarding discharge medications/instructions at this time. Pt states plans to keep f/u appt with Dr. Trinidad on 11/21. Pt states no suggestions for [facility] at this time. Pt states 'Thank you for your hospitalization. You put me back together. You are the most superior hospital.' Pt voices no further questions/concerns/needs at this time. SStaten [facility]
== END 2019-11-16 14:53 | disposition home or self-care (01) | DRG 389 ==
LOC: ED 07:03 → PCU 07:43
PROVIDERS: Hospitalist; Physician Assistant; Admitting Provider Family Medicine; Emergency Provider Emergency Medicine; PCP Family Medicine; Visit Provider Internal Medicine
DX: K56.600 Partial intestinal obstruction, unspecified as to cause (principal); I48.20 Chronic atrial fibrillation, unspecified; N17.9 Acute kidney failure, unspecified; E03.9 Hypothyroidism, unspecified; I12.9 Hypertensive chronic kidney disease with stage 1 through stage 4 chronic kidney disease, or unspecified chronic kidney disease; E11.22 Type 2 diabetes mellitus with diabetic chronic kidney disease; N18.3 Chronic kidney disease, stage 3 (moderate); I25.10 Atherosclerotic heart disease of native coronary artery without angina pectoris; I27.20 Pulmonary hypertension, unspecified; E78.5 Hyperlipidemia, unspecified; M19.90 Unspecified osteoarthritis, unspecified site; R32 Unspecified urinary incontinence; F31.9 Bipolar disorder, unspecified; F41.9 Anxiety disorder, unspecified; M1A.9XX0 Chronic gout, unspecified, without tophus (tophi); E11.40 Type 2 diabetes mellitus with diabetic neuropathy, unspecified; Z95.5 Presence of coronary angioplasty implant and graft; I25.2 Old myocardial infarction; Z87.820 Personal history of traumatic brain injury; Z79.899 Other long term (current) drug therapy; Z79.82 Long term (current) use of aspirin; Z79.84 Long term (current) use of oral hypoglycemic drugs; Z79.02 Long term (current) use of antithrombotics/antiplatelets; Z79.890 Hormone replacement therapy; Z87.440 Personal history of urinary (tract) infections
CPT/HCPCS: 36415; 71045; 71046; 74176; 74250; 80048; 80053; 82947; 82962; 84443; 84484; 85025; 85610; 85730; 93005; 93306; 99285; J7030; A4216; J2405

== ENCOUNTER 2019-11-17 16:45 | Emergency (ER) | payer MEDICARE, SELFPAY ==
[2017-11-19 09:37] VITALS: BMI 31.8
[2019-11-13 07:50] VITALS: BMI 25.9
[2019-11-17 16:46] VITALS: BP 131/61; PULSE 117; RESP 27; TEMP 38.2; O2SAT 98; BMI 27.0
[2019-11-17 16:55] VITALS: BP 131/61; PULSE 108; RESP 20; TEMP 38.2; O2SAT 97
--- NOTE | 2019-11-17 17:20 | CT_ITS ---
STUDY: CT BRAIN WITHOUT CONTRAST REASON FOR EXAM: Male, 68 years old. FALL TODAY, RT EYE AREA LACERATION RADIATION DOSAGE (If Supplied By Facility): CTDIvol = ( 44.99 ) mGy, DLP = ( 796.11 ) mGycm TECHNIQUE: Transaxial CT imaging of the brain was performed without administration of intravenous contrast material. Individualized dose optimization techniques were used for this CT. COMPARISON: 12/30/2018 FINDINGS: Normal soft tissue structures. Normal calvarium. Normal size ventricles and extra-axial spaces for the patient''s age. Normal white matter tracts of the cerebral hemispheres. Normal basal ganglia and thalami. Normal brainstem. Normal cerebellum. There is no intracranial hemorrhage. There are no findings of an acute ischemic infarction. Normal visualized paranasal sinuses. CT/Brain/Head without Contrast IMPRESSION: Normal unenhanced CT scan of the brain. Electronically Signed: Jesus Corrigan MD at 18:10 EDT , Service support ,
--- NOTE | 2019-11-17 17:20 | EKG12_ITS ---
Test Reason : TACHY Blood Pressure : / mmHG Vent. Rate : 108 BPM Atrial Rate : 315 BPM P-R Int : 000 ms QRS Dur : 076 ms QT Int : 302 ms P-R-T Axes : 000 -25 -28 degrees QTc Int : 404 ms Atrial flutter with variable A-V block Marked ST abnormality, possible inferior subendocardial injury Abnormal ECG Confirmed by SAMMI JASON, HERNANDO ([id number]), editor farm journal VENTURA FINK ([id number]) on 11/19/2019 11:29:00 A M Referred By: REGGIE Confirmed By:NARDA CHAPA MD
[2019-11-17 17:21] VITALS: TEMP 36.9
--- NOTE | 2019-11-17 17:21 | CT_ITS ---
STUDY: CT CERVICAL SPINE WITHOUT CONTRAST REASON FOR EXAM: Male, 68 years old. FALL TODAY, RT EYE AREA LACERATION RADIATION DOSAGE (If Supplied By Facility): CTDIvol = ( 22.31 ) mGy, DLP = ( 550.41 ) mGycm TECHNIQUE: High resolution transaxial imaging was performed without contrast material. Sagittal and coronal images were reconstructed. Individualized dose optimization techniques were used for this CT. COMPARISON: 09/07/2016 FINDINGS: No definite acute fracture/dislocation. The cervical junction is intact. C1-C2 articulation is intact. Mild reversal of curvature. There is 4 mm of C4 on C5, otherwise normal alignment. Facet joints are intact at all levels bilaterally. No jumped facets. There is multilevel spondyloarthropathy. Multilevel degenerative disc disease seen. Multilevel loss of disc height. Multilevel posterior marginal osteophytes and disc bulges. Multilevel neural foraminal narrowing. Visualized paraspinal soft tissues and structures are unremarkable. CT/Spine Cervical without Contras IMPRESSION: There is no definite acute fracture/dislocation. Degenerative changes, stable. Electronically Signed: Jesus Corrigan MD at 18:20 EDT , Service support ,
--- NOTE | 2019-11-17 17:22 | CT_ITS ---
STUDY: CT FACIAL BONES WITHOUT CONTRAST REASON FOR EXAM: Male, 68 years old. FALL TODAY, RT EYE AREA LACERATION RADIATION DOSAGE (If Supplied By Facility): CTDIvol = ( 29.38 ) mGy, DLP = ( 569.49 ) mGycm TECHNIQUE: The patient was scanned in a multi detector CT scanner. Sagittal and coronal images were reconstructed. Individualized dose optimization techniques were used for this CT. COMPARISON: None. FINDINGS: Nonspecific soft tissue swelling seen over the right face. There is a defect along the lateral aspect of the left orbital floor. It is not clear whether this is related to a fracture of indeterminate age, or an incidental developmental defect. Normal orbital dawkins and orbital contents. Normal nasal bones and anterior nasal spine. Normal facial bones. There is no demonstrated fracture. Normal visualized paranasal sinuses. CT/Sinus/Facial Bone IMPRESSION: No definite acute fracture. Nonspecific right facial swelling. Defect of the lateral left orbital floor most likely developmental. Electronically Signed: Jesus Corrigan MD at 18:16 EDT , Service support ,
--- NOTE | 2019-11-17 17:24 | ED.VIS.GEN ---
History of Present Illness Chief Complaint: Fall Informant: Patient Onset: Today Narrative: Patient presents after a fall. He states he walked to the store to buy lottery ticket. When he was walking back home he became confused and could not find his way back home. He tripped on the sidewalk and fell striking his face. He does not believe he got knocked out. Sister is at bedside and states that she had fallen asleep and did not realize he had left. Patient was just discharged in the hospital after being admitted for a small bowel obstruction. Patient does have a history of cardiac disease and is currently on aspirin and Brilinta. - Past Medical History (1) CRI (chronic renal insufficiency) Status: Chronic (2) Partial small bowel obstruction Status: Resolved (3) Atherosclerotic heart disease of [place] coronary artery without angina pectoris Status: Chronic Comment: Anterior STEMI, LAURE to mid LAD: 2.5 X [address] Nguyen @ [facility] (4) Stented coronary artery Status: Chronic Comment: LAURE to mid LAD: 2.5 X [address] Nguyen @ [facility] (5) STEMI (ST elevation myocardial infarction) Status: Chronic Comment: Anterior STEMI in October 2017 (6) Diabetes mellitus, type II Status: Chronic Comment: BG readings checked at various times of day. Range 58-200+ He does have a pattern of waking with low Bg. Will reduce his pm lantus today and have him call back office with any further low BG. Reports taking insulin as directed as well as his oral agents. Is due for labs and I have ask him to do these today or tomorrow. BP recheck 134/76 (7) Bipolar disorder Status: Chronic (8) Atrial fibrillation Status: Chronic (9) Hyperlipidemia Status: Chronic (10) Hypertension Status: Chronic (11) Gout Status: Chronic Past Medical History - Allergies and Home Meds Allergies/Adverse Reactions: Allergies atorvastatin [From Lipitor] Allergy (Verified 11/17/19 16:50) Unknown Penicillins Allergy (Verified 11/17/19 16:50) Unknown lisinopril Adverse Reaction (Unknown, Verified 11/17/19 16:50) unknown codeine Adverse Reaction (Verified 11/17/19 16:50) Upset Stomach doxycycline Adverse Reaction (Verified 11/17/19 16:50) Other nickel Adverse Reaction (Verified 11/17/19 16:50) Rash LYCOPEEN Adverse Reaction (Uncoded 11/17/19 16:50) Other Primary Care Physician: Issa Trinidad MD [Primary Care Provider] - Prior records reviewed: Yes Surgical History: - - Cardiac catheterization, T+A, R cataract, L shoulder surgery, R TKR. Lives: With Family Smoking Status: Never smoker - Family History Maternal Family History: Family History (Last Reviewed 08/11/19 @ 13:30 by Jess Sow) Father Arthritis Bleeding disorder Heart disease Hypertension Mother Hypertension Family History: Reports: - Paternal Family History: Family History (Last Reviewed 08/11/19 @ 13:30 by Jess Sow) Father Arthritis Bleeding disorder Heart disease Hypertension Mother Hypertension Family History: Reports: - Review of Systems General: Denies: Chills, Fever Eyes: Denies: Visual changes - bilaterally ENT: Denies: Bilateral ear pain Cardiovascular: Denies: Chest pain Respiratory: Denies: Dyspnea, Cough Gastrointestinal: Denies: Abdominal pain, Nausea, Vomiting Genitourinary: Denies: Dysuria Musculoskeletal: Denies: Swelling, Extremity Pain Skin: Reports: Wounds Neurological: Reports: Headache Hematologic: Reports: Easy bruising Physical Exam Vital Signs/Narrative: Vital Signs Temp Pulse Resp BP Pulse Ox 11/17/19 17:21 98.5 F 11/17/19 16:55 100.8 F H 108 H 20 H 131/61 H 97 11/17/19 16:46 100.8 F H 117 H 27 H 131/61 H 98 Inital Vital Signs reviewed: Yes General: Well nourished, Well developed Head: Normocephalic ENT: Moist mucous membranes, - - Right periorbital hematoma. No conjunctival injection. Neck: Supple, - - No C-spine tenderness. Cardiovascular: Irregular Respiratory: No distress, CTA bilaterally Abdomen: Soft, Nontender Extremities: - - Superficial abrasion to the left anterior knee. No bony tenderness. Neurological: Alert, Oriented x3, - - Patient does keep repeating the question of whether he will have to be admitted. Psychological: Normal affect Diagnostic/Tx/Re-eval Impressions Brain CT 11/17/19 17:20 IMPRESSION: Normal unenhanced CT scan of the brain. Electronically Signed: Jesus Corrigan MD at 18:10 EDT , Service support , Cervical Spine CT 11/17/19 17:21 IMPRESSION: There is no definite acute fracture/dislocation. Degenerative changes, stable. Electronically Signed: Jesus Corrigan MD at 18:20 EDT , Service support , Facial/Sinus 11/17/19 17:22 IMPRESSION: No definite acute fracture. Nonspecific right facial swelling. Defect of the lateral left orbital floor most likely developmental. Electronically Signed: Jesus Corrigan MD at 18:16 EDT , Service support , 11/17/19 17:20 Brain/Head without Contrast [CT] Stat 11/17/19 17:21 CT Cervical [Spine Cervical without Contras] [CT] Stat 11/17/19 17:22 CT Facial [Sinus/Facial Bone] [CT] Stat Laboratory Results 11/17/19 11/17/19 11/17/19 16:53 16:53 16:53 WBC 9.9 RBC 4.30 L Hgb 12.9 L Hct 38.7 L MCV 90.0 MCH 30.0 MCHC 33.3 RDW Std Deviation 41.9 RDW Coeff of Shashank 12.7 Plt Count 288 MPV 10.7 Immature Gran % (Auto) 0.400 Neut % (Auto) 65.5 Lymph % (Auto) 20.6 [place] % (Auto) 9.8 Eos % (Auto) 3.2 Baso % (Auto) 0.5 Absolute Neuts (auto) 6.5 Absolute Lymphs (auto) 2.03 Nucleated RBC % 0 PT 14.0 INR 1.1 APTT 26.7 Sodium 139 Potassium 4.0 Chloride 107 Carbon Dioxide 16.0 L Anion Gap 16 H BUN 32 H Creatinine 2.57 H Estim Creat Clear Calc 27.62 Est GFR (MDRD) Af Amer 32 L Est GFR (MDRD) Non-Af 26 L BUN/Creatinine Ratio 12.5 Glucose 152 H Calcium 9.1 - EKG Initial EKG Interpretation: Atrial Flutter - Atrial flutter with variable block. Ventricular rate is 108. - Medical Decision Making Patient was observed on nuclear monitoring technician. CT images reveal no acute fracture or bleed. Blood work appears consistent with his baseline renal failure. On repeat examination patient is pleasant and talkative. He is able to get up and ambulate with nursing staff without difficulty. He will have family with him tonight will be discharged home with them. ED Disposition - Plan for ED Patient: Disposition: Home or Assisted Living Diagnosis: Closed head injury, Facial contusion Instructions: ED Head Injury Adult, ED CONTUSION Face No Wake Up] Referrals: Issa Trinidad MD [Primary Care Provider] - 1 Week
[2019-11-17 17:30] LABS: Absolute Lymphocyte Count 2.03 X10^3/uL (0.83-4.51); Absolute Neutrophil Count 6.5 X10^3/uL (2.0-7.7); Basophil# 0.05 X10^3/uL; Basophil% 0.5 % (0-1); Eosinophil# 0.32 X10^3/uL; Eosinophils% 3.2 % (0-5); Hematocrit 38.7 % (40-54); Hemoglobin 12.9 g/dL (13.0-16.5); Lymphocyte # 2.03 X10^3/ul (4.0); Lymphocyte % 20.6 % (19-41); Mean Corp Hgb Conc 33.3 g/dL (32-36); Mean Platelet Vol. 10.7 fl (6.2-12.0); Monocyte# 0.97 X10^3/uL; Monocyte% 9.8 % (0-10); NRBC Flagged by Analyzer 0 % (0-5); Neutrophil # 6.45 X10^3/uL (2.7-7.7); Neutrophil % 65.5 % (47-70); Platelet Count 288 K/mm3 (150-450); RBC Distribution Width CV 12.7 % (11.6-14.6); RBC Distribution Width SD 41.9 fl (35.1-43.9); White Blood Count 9.9 K/mm3 (4.4-11.0)
[2019-11-17 17:42] LABS: Anion Gap 16 (5-15); BUN 32 mg/dL (7-18); BUN/Creat Ratio 12.5 RATIO (10-20); Calcium,Total 9.1 mg/dL (8.5-10.1); Chloride 107 mmol/L (98-107); Creatinine, Serum 2.57 mg/dL (0.70-1.30); EST Glomerular Filtration Rate 26 mL/min (>60); Est Glom Filt Rate - Afr Amer 32 mL/min (>60); Estimated Creatinine Clearance 27.62 ml/min; Glucose 152 mg/dL (74-106); Sodium Level 139 mmol/L (136-145)
[2019-11-17 18:04] VITALS: BP 108/72; PULSE 86; RESP 28; O2SAT 95
[2019-11-17 18:28] LABS: International Normalized Ratio 1.1
[2019-11-17 18:29] LABS: Partial Thromboplast Time 26.7 Seconds (24.1-36.2)
[2019-11-17 19:05] VITALS: BP 116/68; PULSE 76; RESP 17; O2SAT 97
== END 2019-11-17 19:11 | disposition home or self-care (01) ==
PROVIDERS: Emergency Provider Emergency Medicine; PCP Family Medicine
DX: S00.83XA Contusion of other part of head, initial encounter (principal); S80.212A Abrasion, left knee, initial encounter; W01.0XXA Fall on same level from slipping, tripping and stumbling without subsequent striking against object, initial encounter; I12.9 Hypertensive chronic kidney disease with stage 1 through stage 4 chronic kidney disease, or unspecified chronic kidney disease; N18.9 Chronic kidney disease, unspecified; I25.10 Atherosclerotic heart disease of native coronary artery without angina pectoris; I25.2 Old myocardial infarction; E11.22 Type 2 diabetes mellitus with diabetic chronic kidney disease; Z79.84 Long term (current) use of oral hypoglycemic drugs; Z79.899 Other long term (current) drug therapy; Z79.82 Long term (current) use of aspirin; F31.9 Bipolar disorder, unspecified; I48.20 Chronic atrial fibrillation, unspecified; M10.9 Gout, unspecified
CPT/HCPCS: 70450; 70486; 72125; 80048; 85025; 85610; 85730; 93005; 99285; A4216

== ENCOUNTER 2019-11-19 06:02 | Emergency (ER) | payer MEDICARE, SELFPAY ==
[2017-11-19 09:37] VITALS: BMI 31.8
[2019-11-19 06:03] VITALS: BP 137/84; PULSE 76; RESP 16; TEMP 36.7; O2SAT 95; BMI 26.8
--- NOTE | 2019-11-19 06:18 | ED.DCSUM_ITS ---
History of Present Illness Chief Complaint: Nausea/Vomiting Informant: Patient Onset: Today Narrative: Brought in by EMS due to reported nausea symptoms after drinking 5-1/2 cups of milk at one time. Patient history of bipolar disorder. Denies chest or abdominal pain. Denies vomiting or diarrhea. Denies any changes in bowel movements. Denies urinary symptoms. Denies fever. Prior similar symptoms: No Past Medical History - Allergies and Home Meds Allergies/Adverse Reactions: Allergies atorvastatin [From Lipitor] Allergy (Verified 11/19/19 06:12) Unknown Penicillins Allergy (Verified 11/19/19 06:12) Unknown lisinopril Adverse Reaction (Unknown, Verified 11/19/19 06:12) unknown codeine Adverse Reaction (Verified 11/19/19 06:12) Upset Stomach doxycycline Adverse Reaction (Verified 11/19/19 06:12) Other nickel Adverse Reaction (Verified 11/19/19 06:12) Rash LYCOPEEN Adverse Reaction (Uncoded 11/17/19 16:50) Other Primary Care Physician: Issa Trinidad MD [Primary Care Provider] - Past Medical History: - - Coronary disease, atrial fibrillation, hypertension, hyperlipidemia, bipolar disorder, gout, CKD Surgical History: - - Cardiac catheterization, T+A, R cataract, L shoulder surgery, R TKR. Smoking Status: Former smoker - Family History Maternal Family History: Family History (Last Reviewed 08/11/19 @ 13:30 by Jess Sow) Father Arthritis Bleeding disorder Heart disease Hypertension Mother Hypertension Family History: Reports: - Paternal Family History: Family History (Last Reviewed 08/11/19 @ 13:30 by Jess Sow) Father Arthritis Bleeding disorder Heart disease Hypertension Mother Hypertension Family History: Reports: - Review of Systems General: Denies: Chills, Fever, Sweats Eyes: Denies: Visual changes - bilaterally, Diplopia ENT: Denies: Rhinorrhea, Sore throat Cardiovascular: Denies: Chest pain, Palpitations Respiratory: Denies: Dyspnea, Cough, Dyspnea on exertion Gastrointestinal: Reports: Nausea. Denies: Abdominal pain, Vomiting, Diarrhea, Melena, Hematochezia Genitourinary: Denies: Dysuria, Hematuria, Frequency Musculoskeletal: Denies: Back pain, Extremity Pain Skin: Denies: Rash, Wounds Neurological: Denies: Headache, Weakness, Numbness Physical Exam Vital Signs/Narrative: Vital Signs Temp Pulse Resp BP Pulse Ox 11/19/19 06:03 98.1 F 76 16 137/84 H 95 Inital Vital Signs reviewed: Yes General: Well nourished, Well developed, No Acute Distress Head: Normocephalic, Atraumatic Eyes: Perrl, EOMI, - - Right periorbital ecchymosis ENT: Moist mucous membranes, No rhinorrhea Neck: Supple, Nontender Cardiovascular: Regular rate, No murmurs, Irregular Respiratory: No distress, CTA bilaterally, Chest nontender Abdomen: Soft, Nontender, Nondistended, Normal bowel sounds Back: Nontender, Normal Inspection Extremities: Nontender, No edema Skin: Normal color, No rash Neurological: Alert, Oriented x3, Cranial nerves II-XII grossly intact, Normal Strength, Normal Sensation Psychological: Normal affect, Normal Mood, - - Slight tangentiality, however redirectable. Diagnostic/Tx/Re-eval - Medical Decision Making Patient nontoxic vital signs stable nontender abdomen. With his periorbital ecchymosis, he had a mechanical fall yesterday was seen in the ED here had image studies head neck and face all were negative. He will be treated with Zofran and reevaluated. Patient symptoms improved, tolerating oral intake. Prescription for Zofran to use as needed. Patient will follow-up as an outpati ent. He will return for any worsening symptoms. All questions were answered. ED Disposition - Plan for ED Patient: Disposition: Home or Assisted Living Diagnosis: Nausea Instructions: ED Nausea Vomiting Adult Prescriptions: Ondansetron [Zofran Odt] 4 mg PO Q8H PRN PRN #10 tab PRN Reason: Nausea Transmission Status: Pending to [facility] [place] [place] - [id number] Referrals: Issa Trinidad MD [Primary Care Provider] - 3-5 Days
[2019-11-19] MEDS: Ondansetron ODT 4 MG Tablet 8 MG PO (06:20)
== END 2019-11-19 07:24 | disposition home or self-care (01) ==
PROVIDERS: Emergency Provider Emergency Medicine; PCP Family Medicine
DX: R11.2 Nausea with vomiting, unspecified (principal); E78.5 Hyperlipidemia, unspecified; F31.9 Bipolar disorder, unspecified; I12.9 Hypertensive chronic kidney disease with stage 1 through stage 4 chronic kidney disease, or unspecified chronic kidney disease; I48.91 Unspecified atrial fibrillation; N18.9 Chronic kidney disease, unspecified; Z82.49 Family history of ischemic heart disease and other diseases of the circulatory system; Z87.891 Personal history of nicotine dependence; Z88.0 Allergy status to penicillin; Z88.1 Allergy status to other antibiotic agents; Z88.5 Allergy status to narcotic agent
CPT/HCPCS: 99284

== ENCOUNTER 2020-03-25 22:42 | Emergency (ER) | payer MEDICARE, SELFPAY ==
[2017-11-19 09:37] VITALS: BMI 31.8
[2020-03-09 13:22] VITALS: BMI 23.8
[2020-03-25 22:43] VITALS: BP 158/114; PULSE 79; RESP 15; TEMP 36.1; O2SAT 98; BMI 25.0
--- NOTE | 2020-03-25 23:15 | RAD_ITS ---
STUDY: X-RAY CHEST REASON FOR EXAM: Male, 69 years old. Weakness, hypertensive. TECHNIQUE: AP portable upright view of the chest on 2 images. COMPARISON: Upright AP and lateral chest x-ray 11/14/2019 FINDINGS: The lungs are clear and more fully expanded today. There is no demonstrated pleural abnormality. Normal size heart. Normal mediastinum and prerna. Normal visualized pulmonary arteries. Normal visualized aortic arch and descending thoracic aorta. There are stable diffuse degenerative changes and mild dextroscoliosis of the visualized thoracic spine. 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 There is no demonstrated abnormality of the visualized soft tissue structures of the upper abdomen. RAD/Chest 1 View (Portable) IMPRESSION: No acute cardiopulmonary disease. Electronically Signed: Peter Connor MD at 0:18 EST , Service support ,
--- NOTE | 2020-03-25 23:16 | EKG12_ITS ---
Test Reason : [facility] [place] Pressure : / mmHG Vent. Rate : 086 BPM Atrial Rate : 312 BPM P-R Int : 000 ms QRS Dur : 088 ms QT Int : 362 ms P-R-T Axes : 000 -27 079 degrees QTc Int : 433 ms Atrial fibrillation Abnormal ECG Confirmed by GRETA JASON, CHARI ([id number]), content editor VENTURA FINK ([id number]) on 03/27/2020 8:50:21 AM Referred By: RACHID Confirmed By:CHARI HERNANDES MD
--- NOTE | 2020-03-25 23:18 | ED.VIS.PSYCH ---
History of Present Illness Chief Complaint: Mental Health Informant: Patient Onset: - - unk Narrative: Patient is apparently brought by family because of possibly not taking his psychiatric medications and not making any sense. At the time of HPI there is no family available. Patient states he has been taking his medications, and takes it with yogurt, which he did prior to coming here tonight. Patient has no physical complaints except feeling tired and generally weak. He does not know for how long this has been the case. Patient spends most of the initial interview talking about all the stops he made today, the meat that he ate at [employer], etc. He is very tangential. Patient presents during the national coronavirus emergency declaration/pandemic. Denies any known contact with anyone infected with COVID-19, and denies having had the illness that he knows of this past year or so. Denies traveling out of the immediate area recently. - Past Medical History (1) Schizoaffective disorder Status: Chronic (2) Arthritis Status: Chronic (3) Atherosclerotic heart disease of [place] coronary artery without angina pectoris Status: Chronic Comment: Anterior STEMI, LAURE to mid LAD: 2.[address] X [address] Nguyen @ [facility] (4) Atrial fibrillation Status: Chronic (5) Bipolar disorder Status: Chronic (6) CRI (chronic renal insufficiency) Status: Chronic (7) Diabetes mellitus, type II Status: Chronic Comment: BG readings checked at various times of day. Range 58-200+ He does have a pattern of waking with low Bg. Will reduce his pm lantus today and have him call back office with any further low BG. Reports taking insulin as directed as well as his oral agents. Is due for labs and I have ask him to do these today or tomorrow. BP recheck 134/76 (8) Gout Status: Chronic (9) Hyperlipidemia Status: Chronic (10) Hypertension Status: Chronic (11) Neuropathy Status: Chronic (12) Traumatic brain injury Status: Chronic Past Medical History - Allergies and Home Meds Allergies/Adverse Reactions: Allergies atorvastatin [From Lipitor] Allergy (Verified 03/25/20 22:46) Unknown Penicillins Allergy (Verified 03/25/20 22:46) Unknown lisinopril Adverse Reaction (Unknown, Verified 03/25/20 22:46) unknown codeine Adverse Reaction (Verified 03/25/20 22:46) Upset Stomach doxycycline Adverse Reaction (Verified 03/25/20 22:46) Other nickel Adverse Reaction (Verified 03/25/20 22:46) Rash LYCOPEEN Adverse Reaction (Uncoded 03/25/20 22:46) Other Primary Care Physician: Issa Trinidad MD [Primary Care Provider] - 3-5 Days (and/or Dr. Castellano) Surgical History: angioplasty - Cardiac stent, - - Cardiac catheterization, T+A, R cataract, L shoulder surgery, R TKR. Smoking Status: Never smoker - Family History Maternal Family History: Family History (Last Reviewed 08/11/19 @ 13:30 by Jess Sow) Father Arthritis Bleeding disorder Heart disease Hypertension Mother Hypertension Family History: Reports: - Paternal Family History: Family History (Last Reviewed 08/11/19 @ 13:30 by Jess Sow) Father Arthritis Bleeding disorder Heart disease Hypertension Mother Hypertension Family History: Reports: - Review of Systems General: Reports: Malaise. Denies: Chills, Fever, Sweats Eyes: Denies: Visual changes - bilaterally, Diplopia ENT: Denies: Bilateral ear pain, Rhinorrhea, Sore throat Cardiovascular: Denies: Chest pain, Palpitations Respiratory: Denies: Dyspnea, Cough, Dyspnea on exertion Gastrointestinal: Denies: Abdominal pain, Nausea, Vomiting, Diarrhea, Melena, Hematochezia Genitourinary: Denies: Dysuria, Hematuria, Frequency Musculoskeletal: Denies: Back pain, Extremity Pain Skin: Denies: Rash, Wounds Neurological: Denies: Headache, Weakness, Numbness Physical Exam Vital Signs/Narrative: Vital Signs Temp Pulse Resp BP Pulse Ox 03/25/20 22:43 96.9 F L 79 15 158/114 H 98 Inital Vital Signs reviewed: Yes General: Well nourished, Well developed, - - NAD Head: Normocephalic, Atraumatic Eyes: Perrl, EOMI ENT: Moist mucous membranes, No rhinorrhea Neck: Supple, Nontender Cardiovascular: Regular rate, Regular rhythm, No murmurs Respiratory: No distress, CTA bilaterally, Chest nontender Abdomen: Soft, Nontender, Nondistended, Normal bowel sounds Back: Nontender, Normal Inspection. Negative for: CVA tenderness Extremities: Nontender, No Edema Skin: Normal color, No rash, No Trauma Neurological: Alert, Oriented x3, Cranial nerves II-XII grossly intact, Normal Strength, Normal Sensation Psych: Normal Stable Appropriate Affect, Good Judgement, Pressured Speech, Flight of Ideas - And tangential, Incoherent thoughts - At times, but also able to discuss details about the current national political climate, Limited Insight. Negative for: Suicidal thoughts, Homicidal thoughts, Hallucinations Diagnostic/Tx/Re-eval Chest X-Ray - ED: 1 View, Read by ED Physician, Normal, Heart, Lungs, No Acute Disease Impressions Chest X-Ray 03/25/20 23:15 IMPRESSION: No acute cardiopulmonary disease. Electronically Signed: Peter Connor MD at 0:18 EST , Service support , Brain CT 03/25/20 23:49 IMPRESSION: No acute intracranial pathology. Electronically Signed: Peter Connor MD at 0:14 EST , Service support , 03/25/20 23:15 Chest 1 View (Portable) [RAD] Stat 03/25/20 23:49 Brain/Head without Contrast [CT] Stat 03/25/20 23:35 Mucosa - Nose SARS-CoV-2 Antigen (Rapid) - Final Laboratory Results 03/25/20 03/25/20 03/25/20 23:30 23:35 23:35 WBC 9.1 RBC 4.73 Hgb 14.1 Hct 41.2 MCV 87.1 MCH 29.8 MCHC 34.2 RDW Std Deviation 39.6 RDW Coeff of Shashank 12.4 Plt Count 263 MPV 11.1 Immature Gran % (Auto) 0.300 Neut % (Auto) 65.8 Lymph % (Auto) 20.9 [place] % (Auto) 9.6 Eos % (Auto) 3.0 Baso % (Auto) 0.4 Absolute Neuts (auto) 6.0 Absolute Lymphs (auto) 1.90 Nucleated RBC % 0 Sodium 136 Potassium 3.9 Chloride 102 Carbon Dioxide 24.0 Anion Gap 10 BUN 33 H Creatinine 2.12 H Estim Creat Clear Calc 31.96 Est GFR (MDRD) Af Amer 40 L Est GFR (MDRD) Non-Af 33 L BUN/Creatinine Ratio 15.6 Glucose 328 H Calcium 9.6 Total Bilirubin 0.20 AST 12 L ALT 30 Alkaline Phosphatase 143 H Troponin I < 0.015 Total Protein 7.9 Albumin 3.5 Globulin 4.4 H Albumin/Globulin Ratio 0.8 L Urine Color Yellow Urine Clarity Clear Urine pH 6.0 Ur Specific [place] 1.010 Urine Protein 100 H Urine Glucose (UA) 1000 H Urine Ketones Negative Urine Occult Blood Negative Urine Nitrite Negative Urine Bilirubin Negative Urine Urobilinogen Normal Ur Leukocyte Esterase Negative Urine RBC 0 SEEN Urine WBC 0-5 SEEN Ur Squamous Epith Cells 0-5 SEEN Urine Bacteria 0 SEEN Urine Mucus 0 SEEN - Rhythm Strip Rhythm Strip: A-fib Rate: 86 Ectopy: None - EKG Initial EKG Interpretation: No Acute Injury Pattern, Atrial Fibrillation Prior: Unchanged More information became available. Nursing talk to sister, who lives with him. She confirms that he has had times where he does not take his medications, this may or may not be on purpose. He is supposed to take them twice daily for the most part, and often misses the daytime dose. He has been acting a little goofy for about 2 months since this has been occurring. There is nothing else acute tonight except for the patient saying that he feels a little tired. She also states that despite him knowing he has diabetes, he drinks a lot of soda pop and basically does not care about his sugar intake. Here, his work-up shows hyperglycemia and glycosuria, along with stable chronic renal insufficiency with associated proteinuria. I suspect he feels tired because he likely is mildly dehydrated from this. He was given fluids and insulin and allowed to drink some water. There is nothing acute here that requires him to be admitted medically. I did speak with the sister. She states he is NOT taking any of his medications for the past 2 months including his insulin and his thyroid replacement medication, as well as his psychiatric medications. He has not been doing anything dangerous, however he is at times talking as if someone is present when he is alone, talking nonsensically, and as above, having hyperglycemia due to his noncompliance. Given this I think he should be pink slipped and admitted to psychiatric hospital. At this time he is medically cleared, we got his sugar down to around 240 with fluids and insulin, just with the first check. Discussing with mental health for further evaluation. They agree he should be hospitalized. I wrote up the pink slip. Accepted by [facility]. ED Disposition - Plan for ED Patient: Disposition: Psychiatric Hospital or Unit Diagnosis: Fatigue, CRI (chronic renal insufficiency), Hyperglycemia due to type 2 diabetes mellitus, Schizoaffective disorder, Noncompliance with medication regimen Instructions: ED Diabetic Hyperglycemia Referrals: Issa Trinidad MD [Primary Care Provider] - 3-5 Days (and/or Dr. Castellano)
[2020-03-25 23:42] LABS: Bacteria 0 SEEN /hpf (None Seen); Mucous, Urine 0 SEEN /hpf (<or=2+); Red Blood Cells-Urine 0 SEEN /hpf (0-5)
--- NOTE | 2020-03-25 23:49 | CT_ITS ---
STUDY: CT BRAIN WITHOUT CONTRAST REASON FOR EXAM: Male, 69 years old. PT IS SCHIZOPHRENIC AND NOT TAKING HIS MEDS. VERY CONFUSED RADIATION DOSAGE (If Supplied By Facility): CTDIvol = ( 44.99 ) mGy, DLP = ( 863.60 ) mGycm TECHNIQUE: Transaxial CT imaging of the brain was performed without administration of intravenous contrast material. Individualized dose optimization techniques were used for this CT. COMPARISON: Noncontrast CT brain 11/17/2019 FINDINGS: Normal soft tissue structures. Normal calvarium. Normal size ventricles and extra-axial spaces for the patient''s age. Normal white matter tracts of the cerebral hemispheres. Normal basal ganglia and thalami. Normal brainstem. Normal cerebellum. There are mild atherosclerotic calcifications of the cavernous segments of the bilateral internal carotid arteries and vertebrobasilar confluence. There is no intracranial hemorrhage. There are no findings of an acute ischemic infarction. Normal visualized paranasal sinuses. CT/Brain/Head without Contrast IMPRESSION: No acute intracranial pathology. Electronically Signed: Peter Connor MD at 0:14 EST , Service support ,
[2020-03-26] VITALS (7 sets, daily range): BP systolic 140–154; BP diastolic 81–86; PULSE 80–83; RESP 15–17; O2SAT 95
[2020-03-26 00:05] LABS: ALB/GLOB Ratio 0.8 RATIO (0.9-2.4); AST(SGOT) 12 U/L (15-37); Alanine Aminotransfer ALT/SGPT 30 U/L (16-61); Albumin, Serum 3.5 g/dL (3.2-5.0); Alkaline Phosphatase 143 U/L (45-117); Anion Gap 10 (5-15); BUN 33 mg/dL (7-18); BUN/Creat Ratio 15.6 RATIO (10-20); Calcium,Total 9.6 mg/dL (8.5-10.1); Chloride 102 mmol/L (98-107); Creatinine, Serum 2.12 mg/dL (0.70-1.30); EST Glomerular Filtration Rate 33 mL/min (>60); Est Glom Filt Rate - Afr Amer 40 mL/min (>60); Estimated Creatinine Clearance 31.96 ml/min; Globulin 4.4 g/dL (2.2-4.2); Glucose 328 mg/dL (74-106); Potassium 3.9 mmol/L (3.5-5.1); Protein, Total 7.9 g/dL (6.4-8.2); Sodium Level 136 mmol/L (136-145)
[2020-03-26 00:09] LABS: Basophil# 0.04 X10^3/uL; Basophil% 0.4 % (0-1); Eosinophil# 0.27 X10^3/uL; Hematocrit 41.2 % (40-54); Hemoglobin 14.1 g/dL (13.0-16.5); Lymphocyte % 20.9 % (19-41); Mean Corp Hgb Conc 34.2 g/dL (32-36); Mean Corpuscular Hgb 29.8 pg (27.0-32.0); Mean Corpuscular Volume 87.1 fL (80-94); Mean Platelet Vol. 11.1 fl (6.2-12.0); Monocyte# 0.87 X10^3/uL; Monocyte% 9.6 % (0-10); NRBC Flagged by Analyzer 0 % (0-5); Neutrophil # 5.96 X10^3/uL (2.7-7.7); Neutrophil % 65.8 % (47-70); Platelet Count 263 K/mm3 (150-450); RBC Distribution Width CV 12.4 % (11.6-14.6); RBC Distribution Width SD 39.6 fl (35.1-43.9); Red Blood Count 4.73 M/mm3 (4.6-6.2); White Blood Count 9.1 K/mm3 (4.4-11.0)
[2020-03-26] MEDS: Insulin Lispro 100 UNIT/ML INSULN.PEN 12 UNIT SC (00:27)
[2020-03-26 00:29] LABS: Color, Urine Yellow (Yellow); Glucose, Dipstick 1000 mg/dl (Normal); Ketone-Dipstick Negative (Negative); Leukocyte Esterase-Dipstick Negative /ul (Negative); Nitrite-Dipstick Negative (Negative); Occult Blood-Urine Negative /ul (Negative); Protein-Dipstick 100 mg/dl (Negative); Urine Bilirubin Dipstick Negative (Negative); Urine Clarity Clear (Clear); Urine Urobilinogen Normal (Normal)
[2020-03-26 00:30] LABS: Squamous Epithelial Cells - UA 0-5 SEEN /hpf (0-5); White Blood Cells 0-5 SEEN /hpf (0-5)
[2020-03-26 01:25] LABS: Bedside Glucose 248 mg/dL (70-110)
--- NOTE | 2020-03-26 01:52 | ED.RN ---
PAGED CRISIS CARDIOVASCULAR RN, WAITING FOR A CALL BACK
[2020-03-26 03:00] LABS: Alcohol, Blood (Medical)-Serum < 3.0 mg/dL
[2020-03-26 03:11] LABS: Amphetamine Urine VISTA NEGATIVE (<1000 ng/mL); Barbiturate Urine VISTA NEGATIVE (< 200 ng/mL); Benzodiazepine Urine VISTA NEGATIVE (< 200 ng/mL); Cocaine Urine VISTA NEGATIVE (< 300 ng/mL); Ecstacy Urine VISTA NEGATIVE (< 500 ng/mL); Methadone Urine VISTA NEGATIVE (< 300 ng/mL); PCP Urine VISTA NEGATIVE (< 25 ng/mL); THC Urine VISTA NEGATIVE (< 50 ng/mL); Vista UDS pH Range 6
== END 2020-03-26 09:04 ==
PROVIDERS: Emergency Provider Emergency Medicine; PCP Family Medicine
DX: R53.83 Other fatigue (principal); E11.22 Type 2 diabetes mellitus with diabetic chronic kidney disease; E11.36 Type 2 diabetes mellitus with diabetic cataract; E11.40 Type 2 diabetes mellitus with diabetic neuropathy, unspecified; E11.65 Type 2 diabetes mellitus with hyperglycemia; E78.5 Hyperlipidemia, unspecified; F25.9 Schizoaffective disorder, unspecified; F31.9 Bipolar disorder, unspecified; I12.9 Hypertensive chronic kidney disease with stage 1 through stage 4 chronic kidney disease, or unspecified chronic kidney disease; N18.9 Chronic kidney disease, unspecified; I25.10 Atherosclerotic heart disease of native coronary artery without angina pectoris; I48.91 Unspecified atrial fibrillation; M19.90 Unspecified osteoarthritis, unspecified site; I25.2 Old myocardial infarction; Z82.49 Family history of ischemic heart disease and other diseases of the circulatory system; Z82.61 Family history of arthritis; Z88.0 Allergy status to penicillin; Z88.1 Allergy status to other antibiotic agents; Z88.5 Allergy status to narcotic agent; Z91.14 Patient's other noncompliance with medication regimen; Z95.5 Presence of coronary angioplasty implant and graft; Z87.820 Personal history of traumatic brain injury; M1A.9XX0 Chronic gout, unspecified, without tophus (tophi); Z79.899 Other long term (current) drug therapy
CPT/HCPCS: 70450; 71045; 80053; 80307; 81001; 82077; 82962; 84484; 85025; 87426; 93005; 99284; J7040; A4216

== ENCOUNTER 2020-07-11 16:03 | Emergency (ER) | payer MEDICARE, MEDICAID, SELFPAY ==
[2017-11-19 09:37] VITALS: BMI 31.8
[2020-07-11 16:04] VITALS: BP 147/85; PULSE 83; RESP 18; TEMP 36.9; O2SAT 97; BMI 24.7
--- NOTE | 2020-07-11 16:22 | ED.VISSUMM ---
- ER Visit Summary Date of Service: 07/11/20 Chief Complaint: Elevated blood sugar History of Present Illness: The patient is a 69 M of diabetes, hypertension, CAD with stents, A. fib, bipolar and renal insufficiency. Patient states been taking his normal medications but his blood sugar was elevated 407 today. He denies any nausea, vomiting, diarrhea or fever. He denies any dysuria. Says he has not been feeling ill. Physical Examination: Well-appearing older male vital signs stable afebrile. Does not look septic or toxic. No acute distress. H EENT exam unremarkable. Moist mucous membranes. Neck nontender no lymphadenopathy. Lungs clear to auscultation bilaterally. Heart regular rhythm no murmur. Abdomen soft nontender normal bowel sounds no peritoneal signs. Patient moving all 4 extremities. No motor deficit. Nontender. No edema. Normal pc support specialist strength. Normal dorsi plantarflexion. Awake and alert answering questions. Test Results: White count 7. Hemoglobin 11. No bands. Chemistries glucose elevated to 93 normal gap of 8 he does have renal insufficiency creatinine 2.52 which is his prior baseline. Acetone is negative. Repeat exam the patient is doing well at 5:45 PM. His blood sugar be rechecked if he is doing well he will be discharged to home. Per the patient request I did try to get a hold of his sister whose name is Ann Marie and I left a message on her voicemail. Emergency Department Course and Treatment: Older male diabetic with elevated blood sugar. Clinically looks well. Treated with a liter normal saline. Screening labs being obtained. Treatment Plan: Watch his blood sugars closely. Take his medications as prescribed. Disposition: Discharge Impression: Acute hyperglycemia History of diabetes History of CAD with stent and history of A. fib History of bipolar History of renal insufficiency This note was generated with Touch-Writeration software. It may contain incorrect words, spelling, and punctuation that were not noted in review of the chart prior to signing ED Disposition - Plan for ED Patient: Referrals: Issa Trinidad MD [Primary Care Provider] -
[2020-07-11] MEDS: 0.9% Normal Saline 1,000 ML 1000 ML IV (16:49)
[2020-07-11 17:00] LABS: Absolute Lymphocyte Count 1.15 X10^3/uL (0.83-4.51); Absolute Neutrophil Count 5.1 X10^3/uL (2.0-7.7); Basophil# 0.03 X10^3/uL; Basophil% 0.4 % (0-1); Eosinophil# 0.27 X10^3/uL; Eosinophils% 3.6 % (0-5); Hematocrit 34.8 % (40-54); Hemoglobin 11.7 g/dL (13.0-16.5); Lymphocyte # 1.15 X10^3/ul (0.83-4.51); Lymphocyte % 15.5 % (19-41); Mean Corp Hgb Conc 33.6 g/dL (32-36); Mean Corpuscular Hgb 29.8 pg (27.0-32.0); Mean Corpuscular Volume 88.5 fL (80-94); Mean Platelet Vol. 10.2 fl (6.2-12.0); Monocyte# 0.85 X10^3/uL; Monocyte% 11.4 % (0-10); NRBC Flagged by Analyzer 0 % (0-5); Neutrophil % 68.6 % (47-70); Platelet Count 313 K/mm3 (150-450); RBC Distribution Width CV 12.4 % (11.6-14.6); RBC Distribution Width SD 40.6 fl (35.1-43.9); Red Blood Count 3.93 M/mm3 (4.6-6.2); White Blood Count 7.4 K/mm3 (4.4-11.0)
[2020-07-11 17:13] LABS: Anion Gap 8 (5-15); BUN 35 mg/dL (7-18); BUN/Creat Ratio 13.9 RATIO (10-20); Calcium,Total 9.1 mg/dL (8.5-10.1); Chloride 102 mmol/L (98-107); Creatinine, Serum 2.52 mg/dL (0.70-1.30); EST Glomerular Filtration Rate 27 mL/min (>60); Est Glom Filt Rate - Afr Amer 33 mL/min (>60); Estimated Creatinine Clearance 27.76 ml/min; Glucose 293 mg/dL (74-106); Sodium Level 135 mmol/L (136-145)
--- NOTE | 2020-07-11 17:49 | ED.DEP ---
ED Disposition - Plan for ED Patient: Disposition: Home or Assisted Living Instructions: ED Diabetic Hyperglycemia Referrals: Issa Trinidad MD [Primary Care Provider] - 3-5 Days Additional Instructions: Watch his blood sugars closely. Follow-up with his primary care physician. Return if feeling worse.
--- NOTE | 2020-07-11 18:13 | ED.RN ---
dr tamez talked with pt sister. will be enroute to warehouse order picker pt. IV dc'd. accu check performed, Dr. Tamez aware of result
[2020-07-11 18:15] LABS: Bedside Glucose 241 mg/dL (70-110)
[2020-07-11 18:33] VITALS: RESP 16; RESP 18
== END 2020-07-11 18:34 | disposition home or self-care (01) ==
PROVIDERS: Emergency Provider Emergency Medicine; PCP Family Medicine
DX: E11.65 Type 2 diabetes mellitus with hyperglycemia (principal); I25.10 Atherosclerotic heart disease of native coronary artery without angina pectoris; I48.91 Unspecified atrial fibrillation; Z95.5 Presence of coronary angioplasty implant and graft; I10 Essential (primary) hypertension; N28.9 Disorder of kidney and ureter, unspecified
CPT/HCPCS: 80048; 82009; 82962; 85025; 96360; 99283; J7030; A4216

== ENCOUNTER 2020-09-23 15:32 | Emergency (ER) | payer MEDICARE, SELFPAY ==
[2017-11-19 09:37] VITALS: BMI 31.8
[2020-09-08 13:07] VITALS: BMI 24.5
[2020-09-23 15:33] VITALS: BP 165/76; PULSE 84; RESP 16; TEMP 36.8; O2SAT 97; BMI 27.3
--- NOTE | 2020-09-23 15:45 | EDS_ITS ---
HPI History of Present Illness Chief Complaint: Overdose Informant: patient and family Onset/Context/Timing Onset: Today and Hours Current Severity: Mild Maximum Severity: Mild Narrative Narrative: Male lives at home with his sister. Today he had soap in his eyes and reportedly took 9 Tylenol between 1 and 3 PM for the pain. He was not trying to overdose to hurt himself. He is a just made a mistake. Family is with him and verifies the story. Prior similar symptoms: No Recent Illness/Hospitalization: No PFSH PFSH Medical History Afib Anxiety Arthritis Arthritis Atherosclerotic heart disease of [place] coronary artery without angina pectoris Back problem Bipolar disorder Cataracts, bilateral Depression Diabetes mellitus, type II Diabetes type 2, controlled GI problem Headache Heart disease High cholesterol HTN (hypertension) Hyperlipidemia Hypertension Kidney disease Neuropathy Osteoarthritis Recurrent UTI Seasonal allergies STEMI (ST elevation myocardial infarction) (11/19/17) Traumatic brain injury Home Medications ferrous sulfate 325 mg PO DAILY 04/09/16 [History Last Taken 12/29/18] multivitamin 1 tab PO DAILY 09/07/16 [History Last Taken 12/29/18] aspirin 81 mg tablet,delayed release 81 mg PO QDAY 02/27/17 [History Last Taken 12/29/18] nitroglycerin 0.4 mg sublingual tablet 0.4 mg SUBLINGUAL Q5M PRN 02/27/17 [History Last Taken 12/29/18] amlodipine 10 mg tablet 10 mg PO DAILY 02/03/19 [History Last Taken Unknown] cholecalciferol (vitamin D3) 25 mcg (1,000 unit) capsule 1,000 unit PO DAILY 02/03/19 [History Last Taken Unknown] carvedilol 6.25 mg PO BID 03/25/20 [History Last Taken Unknown] ticagrelor 90 mg tablet 90 mg PO BID #180 tab 08/08/20 [Rx Last Taken Unknown] fenofibrate nanocrystallized 145 mg tablet 145 mg PO DAILY tab 09/08/20 [History Last Taken Unknown] insulin glargine 100 unit/mL (3 mL) subcutaneous pen 24 unit SUBCUT DAILY ml 09/08/20 [History Last Taken Unknown] levothyroxine 112 mcg tablet 112 mcg PO DAILY tab 09/08/20 [History Last Taken Unknown] levothyroxine 112 mcg PO DAILY 09/23/20 [History Last Taken Unknown] ticagrelor [Brilinta] 90 mg PO BID 09/23/20 [History Last Taken Unknown] Allergy/AdvReac Type Severity Reaction Status Date / Time atorvastatin [From Lipitor] Allergy Unknown Verified 09/23/20 15:33 Penicillins Allergy Unknown Verified 09/23/20 15:33 lisinopril AdvReac Unknown unknown Verified 09/23/20 15:33 codeine AdvReac Upset Verified 09/23/20 15:33 Stomach doxycycline AdvReac Other Verified 09/23/20 15:33 nickel AdvReac Rash Verified 09/23/20 15:33 LYCOPEEN AdvReac Other Uncoded 09/23/20 15:33 Family History Father Arthritis Bleeding disorder Heart disease Hypertension Mother Hypertension Surgical History Stented coronary artery (11/19/17) Social History Smoking Status: Never smoker alcohol intake: never substance use type: does not use caffeine: Yes ROS ROS ED ROS Narrative Denies recent illness. Review of Systems ROS Unobtainable: Denies due to encephalopathy Constitutional Constitutional ED: Denies chills or fever(s) Eyes Eyes: Denies change in vision ENT ENT ED: Denies ear pain or sore throat Cardiovascular Cardiovascular: Denies chest pain or palpitations Respiratory/Chest Respiratory/Chest: Denies dyspnea Gastrointestinal Gastrointestinal: Denies abdominal pain, diarrhea, nausea or vomiting Genitourinary Genitourinary ED: Denies dysuria Musculoskeletal Musculoskeletal: Denies myalgias Integumentary Denies rash Neurologic Neurologic: Denies headache(s) Psychiatric Psychiatric: Denies depression Endocrine Endocrinology: Denies polyuria Allergic/Immunologic Allergic/Immunologic ED: Denies urticaria EXAM Physical Exam Narrative Exam Narrative: Older male no acute distress. Vital signs stable afebrile. Well-known in this emergency department. I take. His exam is benign. Const Vital Signs: 09/23/20 15:33 Temperature 98.2 F Temperature Source Temporal Pulse Rate 84 Respiratory Rate 16 Blood Pressure 165/76 H Blood Pressure Mean 105 Pulse Ox 97 Oxygen Delivery Method Room Air Positive well nourished and well developed General Appearance ED: well developed HEENT Reports moist mucous membranes Negative for trauma or tenderness Eyes PERRL and EOMs intact bilaterally Neck no lymphadenopathy, supple and no JVD General: Negative for tenderness Chest Wall inspection of chest normal and palpation of chest normal Resp normal respiratory effort and clear to auscultation bilaterally Effort and Inspection: pain with movement Cardio regular rate, regular rhythm, S1 normal heart sound, S2 normal heart sound and no murmurs GI normal to inspection, nondistended, normoactive bowel sounds, non-tender, non- distended and no masses Inspection: Negative for abdominal distention Auscultation: normoactive bowel sounds Palpation: soft; Negative for tender, guarding or rebound tenderness present Back/Spine no CVA tenderness General Back: Negative for CVA tenderness Cervical Spine: Negative for cervical spine tenderness Thoracic Spine / Upper Back: Negative for thoracic spinal tenderness or paraspinal muscle tenderness Extremity normal to inspection General Extremety ED: Negative for edema or tenderness General Extremity: Negative for edema Neuro oriented x3, CN's II-XII intact bilaterally and No no sensory deficits noted Sensorium / Orientation: alert; Negative for orientation impaired, lethargic or stuporous Motor Exam: strength 5/5 throughout Psych mental status grossly normal Attitude: No agitated Mood & Affect: Negative for depressed, anxious or tearful Skin no rashes or lesions noted and no wounds MDM MDM MDM Narrative Medical decision making narrative: Older male unintentionally took too many Tylenol he got so open his eyes to the discomfort. Clinically looks well. I do not think if he truly took 9 Tylenol over 2 hours that could have the significant amount to overdose him. We will check a Tylenol level and liver enzymes. For baseline. Otherwise exam is unremarkable. I did offer him the opportunity to be seen by executive secretary social welfare and potentially consider placement but he does not want to leave his home at this time. Lab Data Attestation: I reviewed the patient's lab results. Lab results narrative: Liver enzymes are normal. Tylenol level is above normal at 46 but nowhere near the toxic range. I do not think he needs a repeat level. He is doing well on repeat exam at 5 PM and he and his family members will take him home. Labs: Laboratory Results - last 24 hr 09/23/20 09/23/20 15:48 15:48 Total Bilirubin 0.30 Direct Bilirubin 0.12 AST 15 ALT 20 Alkaline Phosphatase 85 Total Protein 7.7 Albumin 3.6 Globulin 4.1 Acetaminophen 46.4 H Discharge Plan Triage Chief Complaint: Overdose ED Provider: Christiano Knox Dx/Rx/DC Orders Prescriptions: No Action aspirin 81 mg tablet,delayed release (DR/EC) 81 mg PO QDAY RF: 0 nitroglycerin [Nitrostat] 0.4 mg tablet, sublingual 0.4 mg SUBLINGUAL Q5M PRN (Reason: CHEST PAIN) RF: 0 amlodipine 10 mg tablet 10 mg PO DAILY RF: 0 cholecalciferol (vitamin D3) 1,000 unit capsule 1,000 unit PO DAILY RF: 0 fenofibrate nanocrystallized 145 mg tablet 145 mg PO DAILY RF: 0 levothyroxine 112 mcg tablet 112 mcg PO DAILY RF: 0 insulin glargine 100 unit/mL (3 mL) insulin pen 24 unit subcut DAILY RF: 0 ferrous sulfate 325 MG tablet 325 mg PO DAILY RF: 0 multivitamin 1 EACH tablet 1 tab PO DAILY RF: 0 carvedilol 6.25 MG tablet 6.25 mg PO BID RF: 0 levothyroxine 112 mcg tablet 112 mcg PO DAILY RF: 0 Brilinta 90 mg tablet 90 mg PO BID RF: 0 Brilinta 90 mg tablet 90 mg PO BID Qty: 180 RF: 3 Primary Care Provider: Issa Trinidad
--- NOTE | 2020-09-23 15:50 | ED.RN ---
PTS SISTER CALLED AND STATED SHE FEELS HE NEEDS PLACED IN A CARE HOME. STATES HE IS NOT TAKING HIS PILLS CORRECTLY, IS NOT TAKING CARE OF HIMSELF LATELY. STATES PTS PCP AND PSYCHIATRIST ARE AWARE HE IS STRUGGLING TO TAKE CARE OF HERSELF. PHYSICIAN NOTIFIED
--- NOTE | 2020-09-23 16:00 | ED.RN ---
Patient declines referral for social work, after discussion regarding safety and risks at home vs benefits if placement with home health, assisted living or independent living.
[2020-09-23 16:20] LABS: Acetaminophen (Tylenol) Level 46.4 ug/mL (10.0-30.0)
[2020-09-23 16:21] LABS: AST(SGOT) 15 U/L (15-37); Alanine Aminotransfer ALT/SGPT 20 U/L (16-61); Albumin, Serum 3.6 g/dL (3.2-5.0); Alkaline Phosphatase 85 U/L (45-117); Bilirubin, Direct 0.12 mg/dL (0.00-0.30); Globulin 4.1 g/dL (2.2-4.2); Protein, Total 7.7 g/dL (6.4-8.2)
[2020-09-23 17:09] VITALS: BP 132/74; PULSE 76; RESP 14; TEMP -10; TEMP 14; O2SAT 98
== END 2020-09-23 17:13 | disposition home or self-care (01) ==
PROVIDERS: Emergency Provider Emergency Medicine; PCP Family Medicine
DX: T39.1X1A Poisoning by 4-Aminophenol derivatives, accidental (unintentional), initial encounter (principal); Y92.9 Unspecified place or not applicable; I25.10 Atherosclerotic heart disease of native coronary artery without angina pectoris; E78.00 Pure hypercholesterolemia, unspecified; I10 Essential (primary) hypertension; F31.9 Bipolar disorder, unspecified; I25.2 Old myocardial infarction; E11.40 Type 2 diabetes mellitus with diabetic neuropathy, unspecified; E11.36 Type 2 diabetes mellitus with diabetic cataract; E78.5 Hyperlipidemia, unspecified; F41.9 Anxiety disorder, unspecified; I48.91 Unspecified atrial fibrillation; Z79.4 Long term (current) use of insulin; Z79.82 Long term (current) use of aspirin; Z79.899 Other long term (current) drug therapy
CPT/HCPCS: 80076; 80329; 99282; A4216; G0480

== ENCOUNTER 2020-10-04 01:35 | Emergency (ER) | payer MEDICARE, SELFPAY ==
[2017-11-19 09:37] VITALS: BMI 31.8
[2020-10-04 01:38] VITALS: BP 182/99; PULSE 75; RESP 16; TEMP 36.7; O2SAT 98; BMI 26.9
--- NOTE | 2020-10-04 03:28 | EDS_ITS ---
HPI History of Present Illness Chief Complaint: General Illness Informant: patient Narrative Narrative: 69-year-old male presenting with difficulty falling asleep. Patient states that he typically sleeps from 7 PM to 6 AM. He was unable to fall asleep tonight. He denies depression or anxiety. Denies suicidal ideation. He follows regularly with psychiatry and has not any changes in his medications. He has no current complaints. When I walked in the room he was sleeping on the cot. Prior similar symptoms: Yes PFSH PFS Medical History (Updated 10/04/20 @ 04:[address] Niki Escobedo MD) Afib Anxiety Arthritis Arthritis Atherosclerotic heart disease of [place] coronary artery without angina pectoris Back problem Bipolar disorder Cataracts, bilateral Depression Diabetes mellitus, type II Diabetes type 2, controlled GI problem Headache Heart disease High cholesterol HTN (hypertension) Hyperlipidemia Hypertension Kidney disease Neuropathy Osteoarthritis Recurrent UTI Seasonal allergies STEMI (ST elevation myocardial infarction) (11/19/17) Traumatic brain injury Home Medications ferrous sulfate 325 mg PO DAILY 04/09/16 [History Last Taken 12/29/18] multivitamin 1 tab PO DAILY 09/07/16 [History Last Taken 12/29/18] aspirin 81 mg tablet,delayed release 81 mg PO QDAY 02/27/17 [History Last Taken 12/29/18] nitroglycerin 0.4 mg sublingual tablet 0.4 mg SUBLINGUAL Q5M PRN 02/27/17 [History Last Taken 12/29/18] amlodipine 10 mg tablet 10 mg PO DAILY 02/03/19 [History Last Taken Unknown] cholecalciferol (vitamin D3) 25 mcg (1,000 unit) capsule 1,000 unit PO DAILY 02/03/19 [History Last Taken Unknown] carvedilol 6.25 mg PO BID 03/25/20 [History Last Taken Unknown] ticagrelor 90 mg tablet 90 mg PO BID #180 tab 08/08/20 [Rx Last Taken Unknown] fenofibrate nanocrystallized 145 mg tablet 145 mg PO DAILY tab 09/08/20 [History Last Taken Unknown] insulin glargine 100 unit/mL (3 mL) subcutaneous pen 24 unit SUBCUT DAILY ml 09/08/20 [History Last Taken Unknown] levothyroxine 112 mcg tablet 112 mcg PO DAILY tab 09/08/20 [History Last Taken Unknown] levothyroxine 112 mcg PO DAILY 09/23/20 [History Last Taken Unknown] ticagrelor [Brilinta] 90 mg PO BID 09/23/20 [History Last Taken Unknown] Allergy/AdvReac Type Severity Reaction Status Date / Time atorvastatin [From Lipitor] Allergy Unknown Verified 10/04/20 01:42 Penicillins Allergy Unknown Verified 10/04/20 01:42 lisinopril AdvReac Unknown unknown Verified 10/04/20 01:42 codeine AdvReac Upset Verified 10/04/20 01:42 Stomach doxycycline AdvReac Other Verified 10/04/20 01:42 nickel AdvReac Rash Verified 10/04/20 01:42 LYCOPEEN AdvReac Other Uncoded 10/04/20 01:42 Family History Father Arthritis Bleeding disorder Heart disease Hypertension Mother Hypertension Surgical History Stented coronary artery (11/19/17) Social History Smoking Status: Never smoker alcohol intake: never substance use type: does not use caffeine: Yes ROS ROS ED Constitutional Constitutional ED: Denies fever(s) Eyes Eyes: Denies change in vision ENT ENT ED: Denies rhinorrhea or sore throat Cardiovascular Cardiovascular: Denies chest pain or palpitations Respiratory/Chest Respiratory/Chest: Denies cough or dyspnea Gastrointestinal Gastrointestinal: Denies abdominal pain, diarrhea, nausea or vomiting Genitourinary Genitourinary ED: Denies dysuria Musculoskeletal Musculoskeletal: Denies myalgias Integumentary Denies rash Neurologic Neurologic: Denies headache(s) Psychiatric Psychiatric: Denies anxiety, depression or suicidal thoughts EXAM Physical Exam Const Vital Signs: 10/04/20 01:38 10/04/20 01:41 Temperature 98.0 F Temperature Source Temporal Pulse Rate 75 Respiratory Rate 16 Respiratory Effort Normal Respiratory Pattern Normal Blood Pressure 182/99 H Blood Pressure Mean 126 Pulse Ox 98 Oxygen Delivery Method Room Air Positive well nourished and well developed General Appearance ED: well developed HEENT Reports normocephalic and head/scalp atraumatic Eyes PERRL and EOMs intact bilaterally Neck supple General: Negative for tenderness Chest Wall inspection of chest normal Resp normal respiratory effort and clear to auscultation bilaterally Cardio regular rate and regular rhythm GI non-tender and non-distended Palpation: soft; Negative for guarding or rebound tenderness present no CVA tenderness Extremity normal to inspection Neuro oriented x3 Sensorium / Orientation: alert Motor Exam: strength 5/5 throughout Psych mental status grossly normal Skin no rashes or lesions noted MDM MDM MDM Narrative Medical decision making narrative: Patient is requesting food and a place to sleep. He has no current complaints. He is able to tolerate p.o. in the emergency department. On multiple reevaluations patient is sleeping or resting comfortably and has no complaints. He is comfortable with discharge home. Advised return to the ED for worsening complaints. Discharge Plan Triage Chief Complaint: General Illness ED Provider: Niki Escobedo Dx/Rx/DC Orders Clinical Impression: Insomnia Instructions: ED Insomnia Prescriptions: No Action aspirin 81 mg tablet,delayed release (DR/EC) 81 mg PO QDAY RF: 0 nitroglycerin [Nitrostat] 0.4 mg tablet, sublingual 0.4 mg SUBLINGUAL Q5M PRN (Reason: CHEST PAIN) RF: 0 amlodipine 10 mg tablet 10 mg PO DAILY RF: 0 cholecalciferol (vitamin D3) 1,000 unit capsule 1,000 unit PO DAILY RF: 0 fenofibrate nanocrystallized 145 mg tablet 145 mg PO DAILY RF: 0 levothyroxine 112 mcg tablet 112 mcg PO DAILY RF: 0 insulin glargine 100 unit/mL (3 mL) insulin pen 24 unit subcut DAILY RF: 0 ferrous sulfate 325 MG tablet 325 mg PO DAILY RF: 0 multivitamin 1 EACH tablet 1 tab PO DAILY RF: 0 carvedilol 6.25 MG tablet 6.25 mg PO BID RF: 0 levothyroxine 112 mcg tablet 112 mcg PO DAILY RF: 0 Brilinta 90 mg tablet 90 mg PO BID RF: 0 Brilinta 90 mg tablet 90 mg PO BID Qty: 180 RF: 3 Primary Care Provider: Issa Trinidad Referrals: Issa Trinidad MD [Primary Care Provider] - Disposition Disposition: Home, Self Care
[2020-10-04 04:36] VITALS: BP 153/87; PULSE 71; RESP 18; O2SAT 97
== END 2020-10-04 04:44 | disposition home or self-care (01) ==
PROVIDERS: Emergency Provider Emergency Medicine; PCP Family Medicine
DX: G47.00 Insomnia, unspecified (principal); E11.36 Type 2 diabetes mellitus with diabetic cataract; E11.40 Type 2 diabetes mellitus with diabetic neuropathy, unspecified; E78.00 Pure hypercholesterolemia, unspecified; E78.5 Hyperlipidemia, unspecified; F31.9 Bipolar disorder, unspecified; F41.9 Anxiety disorder, unspecified; I10 Essential (primary) hypertension; I25.10 Atherosclerotic heart disease of native coronary artery without angina pectoris; I48.91 Unspecified atrial fibrillation; I25.2 Old myocardial infarction; M19.90 Unspecified osteoarthritis, unspecified site; Z79.4 Long term (current) use of insulin; Z79.82 Long term (current) use of aspirin; Z79.899 Other long term (current) drug therapy; Z87.820 Personal history of traumatic brain injury
CPT/HCPCS: 99284

== ENCOUNTER 2020-10-10 04:24 | Emergency (ER) | payer MEDICARE, SELFPAY ==
[2017-11-19 09:37] VITALS: BMI 31.8
[2020-10-10 04:26] VITALS: BP 156/101; PULSE 75; RESP 17; TEMP 36.9; O2SAT 98; BMI 27.1
--- NOTE | 2020-10-10 04:39 | EKG12_ITS ---
Test Reason : GEN ILLNESS Blood Pressure : / mmHG Vent. Rate : 071 BPM Atrial Rate : 071 BPM P-R Int : 172 ms QRS Dur : 090 ms QT Int : 376 ms P-R-T Axes : 026 -35 045 degrees QTc Int : 408 ms Normal sinus rhythm Left axis deviation Low voltage QRS Abnormal ECG Confirmed by TU JASON, NERY ([id number]), sports editor VENTURA FINK ([id number]) on 10/11/2020 12:41:12 PM Referred By: MARITZA Confirmed By:NERY MAE MD
[2020-10-10 05:09] LABS: Absolute Lymphocyte Count 1.22 X10^3/uL (0.83-4.51); Absolute Neutrophil Count 4.7 X10^3/uL (2.0-7.7); Basophil# 0.04 X10^3/uL; Basophil% 0.6 % (0-1); Eosinophil# 0.33 X10^3/uL; Eosinophils% 4.6 % (0-5); Hematocrit 36.5 % (40-54); Hemoglobin 12.1 g/dL (13.0-16.5); Lymphocyte # 1.22 X10^3/ul (0.83-4.51); Mean Corp Hgb Conc 33.2 g/dL (32-36); Mean Corpuscular Hgb 29.5 pg (27.0-32.0); Mean Platelet Vol. 9.9 fl (6.2-12.0); Monocyte# 0.86 X10^3/uL; NRBC Flagged by Analyzer 0 % (0-5); Neutrophil % 65.2 % (47-70); Platelet Count 300 K/mm3 (150-450); RBC Distribution Width CV 13.3 % (11.6-14.6); RBC Distribution Width SD 43.8 fl (35.1-43.9); White Blood Count 7.2 K/mm3 (4.4-11.0)
--- NOTE | 2020-10-10 05:09 | EX.ED.DYSGE1 ---
HPI History of Present Illness Chief Complaint: General Illness Informant: patient and EMS Onset/Context/Timing Onset: Today Narrative Narrative: Patient presents via EMS secondary to unable to sleep. Patient states he normally goes to bed around 8 PM. He went to bed last night but only had one 12 ounce bottle of water when he normally has to. He states he drank part of that at 2 AM and then some more at 4 AM. When he realized at 4 AM that he could not sleep he called 911. He denies chest pain or shortness of breath. It is noted that the patient was seen here last week for similar. Patient denies any recent medication changes. He denies change in caffeine intake. [facility] Medical History Afib Anxiety Arthritis Atherosclerotic heart disease of [place] coronary artery without angina pectoris Back problem Bipolar disorder Cataracts, bilateral Depression Diabetes mellitus, type II GI problem Headache Heart disease High cholesterol HTN (hypertension) Hyperlipidemia Hypertension Kidney disease Neuropathy Osteoarthritis Recurrent UTI Seasonal allergies STEMI (ST elevation myocardial infarction) (11/19/17) Traumatic brain injury Home Medications ferrous sulfate 325 mg PO DAILY 04/09/16 [History Last Taken 12/29/18] multivitamin 1 tab PO DAILY 09/07/16 [History Last Taken 12/29/18] aspirin 81 mg tablet,delayed release 81 mg PO QDAY 02/27/17 [History Last Taken 12/29/18] nitroglycerin 0.4 mg sublingual tablet 0.4 mg SUBLINGUAL Q5M PRN 02/27/17 [History Last Taken 12/29/18] amlodipine 10 mg tablet 10 mg PO DAILY 02/03/19 [History Last Taken Unknown] cholecalciferol (vitamin D3) 25 mcg (1,000 unit) capsule 1,000 unit PO DAILY 02/03/19 [History Last Taken Unknown] carvedilol 6.25 mg PO BID 03/25/20 [History Last Taken Unknown] ticagrelor 90 mg tablet 90 mg PO BID #180 tab 08/08/20 [Rx Last Taken Unknown] fenofibrate nanocrystallized 145 mg tablet 145 mg PO DAILY tab 09/08/20 [History Last Taken Unknown] insulin glargine 100 unit/mL (3 mL) subcutaneous pen 24 unit SUBCUT DAILY ml 09/08/20 [History Last Taken Unknown] levothyroxine 112 mcg tablet 112 mcg PO DAILY tab 09/08/20 [History Last Taken Unknown] levothyroxine 112 mcg PO DAILY 09/23/20 [History Last Taken Unknown] ticagrelor [Brilinta] 90 mg PO BID 09/23/20 [History Last Taken Unknown] Allergy/AdvReac Type Severity Reaction Status Date / Time atorvastatin [From Lipitor] Allergy Unknown Verified 10/04/20 01:42 Penicillins Allergy Unknown Verified 10/04/20 01:42 lisinopril AdvReac Unknown unknown Verified 10/04/20 01:42 codeine AdvReac Upset Verified 10/04/20 01:42 Stomach doxycycline AdvReac Other Verified 10/04/20 01:42 nickel AdvReac Rash Verified 10/04/20 01:42 LYCOPEEN AdvReac Other Uncoded 10/04/20 01:42 Family History Father Arthritis Bleeding disorder Heart disease Hypertension Mother Hypertension Surgical History Stented coronary artery (11/19/17) Social History Smoking Status: Never smoker alcohol intake: never substance use type: does not use caffeine: Yes ROS ROS ED Constitutional Constitutional ED: Denies chills or fever(s) Eyes Eyes: Denies change in vision ENT ENT ED: Denies sore throat Cardiovascular Cardiovascular: Denies chest pain Respiratory/Chest Respiratory/Chest: Denies cough or dyspnea Gastrointestinal Gastrointestinal: Denies abdominal pain, diarrhea, nausea or vomiting Genitourinary Genitourinary ED: Denies dysuria Musculoskeletal Musculoskeletal: Denies back pain Integumentary Denies rash Neurologic Neurologic: Denies headache(s) or weakness Psychiatric Psychiatric: Denies anxiety or depression Endocrine Endocrinology: Denies polydipsia or polyuria Allergic/Immunologic Allergic/Immunologic ED: Denies urticaria EXAM Physical Exam Const Vital Signs: 10/10/20 04:26 Temperature 98.4 F Temperature Source Temporal Pulse Rate 75 Respiratory Rate 17 Blood Pressure 156/101 H Blood Pressure Mean 119 Pulse Ox 98 Oxygen Delivery Method Room Air Positive well nourished and well developed General Appearance ED: well developed HEENT Reports normocephalic and head/scalp atraumatic Eyes PERRL and EOMs intact bilaterally Neck supple Chest Wall inspection of chest normal and palpation of chest normal Resp normal respiratory effort and clear to auscultation bilaterally Cardio regular rate and regular rhythm GI normal to inspection, nondistended, normoactive bowel sounds Palpation: soft Extremity normal to inspection Neuro oriented x3 Neuro Narrative: No focal neurologic deficits. Sensorium / Orientation: alert Psych mental status grossly normal Skin no rashes or lesions noted MDM MDM MDM Narrative Medical decision making narrative: With this being this patient's second visit for similar complaints work-up was initiated. EKG and labs are obtained. Lab Data Attestation: I reviewed the patient's lab results. Labs: Laboratory Results - last 24 hr 10/10/20 10/10/20 05:05 05:05 WBC 7.2 RBC 4.10 L Hgb 12.1 L Hct 36.5 L MCV 89.0 MCH 29.5 MCHC 33.2 RDW Std Deviation 43.8 RDW Coeff of Shashank 13.3 Plt Count 300 MPV 9.9 Immature Gran % (Auto) 0.600 Neut % (Auto) 65.2 Lymph % (Auto) 17.0 L [place] % (Auto) 12.0 H Eos % (Auto) 4.6 Baso % (Auto) 0.6 Absolute Neuts (auto) 4.7 Absolute Lymphs (auto) 1.22 Nucleated RBC % 0 Sodium 141 Potassium 4.0 Chloride 108 H Carbon Dioxide 25.0 Anion Gap 8 BUN 27 H Creatinine 2.31 H Estim Creat Clear Calc 27.42 Est GFR (MDRD) Af Amer 36 L Est GFR (MDRD) Non-Af 30 L BUN/Creatinine Ratio 11.7 Glucose 140 H Calcium 9.4 Troponin I High Sens 8.5 EKG Initial EKG: Attestation: I personally reviewed and interpreted this EKG as follows: Interpretation: Sinus Rhythm (Sinus at [address] change.) Treatment and Re-Evaluation Comments:: On repeat evaluation patient is resting comfortably. I did advise him that his work-up at this point is unremarkable. I did offer to write him something to help him sleep such as a dose of Vistaril. He would prefer to take this here and then go home and sleep. We will attempt to contact his sister to come pick him up. He does have a doctor's appointment later today. Discharge Plan Triage Chief Complaint: General Illness ED Provider: Ariadna Cummings Dx/Rx/DC Orders Clinical Impression: Insomnia Instructions: ED Insomnia Prescriptions: No Action aspirin 81 mg tablet,delayed release (DR/EC) 81 mg PO QDAY RF: 0 nitroglycerin [Nitrostat] 0.4 mg tablet, sublingual 0.4 mg SUBLINGUAL Q5M PRN (Reason: CHEST PAIN) RF: 0 amlodipine 10 mg tablet 10 mg PO DAILY RF: 0 cholecalciferol (vitamin D3) 1,000 unit capsule 1,000 unit PO DAILY RF: 0 fenofibrate nanocrystallized 145 mg tablet 145 mg PO DAILY RF: 0 levothyroxine 112 mcg tablet 112 mcg PO DAILY RF: 0 insulin glargine 100 unit/mL (3 mL) insulin pen 24 unit subcut DAILY RF: 0 ferrous sulfate 325 MG tablet 325 mg PO DAILY RF: 0 multivitamin 1 EACH tablet 1 tab PO DAILY RF: 0 carvedilol 6.25 MG tablet 6.25 mg PO BID RF: 0 levothyroxine 112 mcg tablet 112 mcg PO DAILY RF: 0 Brilinta 90 mg tablet 90 mg PO BID RF: 0 Brilinta 90 mg tablet 90 mg PO BID Qty: 180 RF: 3 Primary Care Provider: Issa Trinidad Referrals: Issa Trinidad MD [Primary Care Provider] - As soon as possible Disposition Disposition: Home, Self Care
[2020-10-10 05:29] LABS: Anion Gap 8 (5-15); BUN 27 mg/dL (7-18); BUN/Creat Ratio 11.7 RATIO (10-20); Calcium,Total 9.4 mg/dL (8.5-10.1); Chloride 108 mmol/L (98-107); Creatinine, Serum 2.31 mg/dL (0.70-1.30); EST Glomerular Filtration Rate 30 mL/min (>60); Est Glom Filt Rate - Afr Amer 36 mL/min (>60); Estimated Creatinine Clearance 27.42 ml/min; Glucose 140 mg/dL (74-106); Sodium Level 141 mmol/L (136-145); Troponin-I HS 8.5 pg/mL (3.0-78.5)
[2020-10-10 05:58] VITALS: RESP 16
[2020-10-10] MEDS: hydrOXYzine PAM 25 MG Capsule PO (06:01)
--- NOTE | 2020-10-10 06:23 | ED.RN ---
Discussion occurred with Car about hospice services. Car is very agreeable to hospice services and is okay with a referral. Dr. Cummings is agreeable for referral to hospice services. Spoke to sister Ann Marie and she also feels hospice is a good idea. Call placed to [facility] and referral made, chart to be faxed over. Car does report shortness of breath with exertion and more difficulty with sleeping and performing ADLs. Car does have significant cardiac history with chronic kidney disease. Release of records sent to [facility] with chart.
== END 2020-10-10 06:50 | disposition home or self-care (01) ==
PROVIDERS: Emergency Provider Emergency Medicine; PCP Family Medicine
DX: G47.00 Insomnia, unspecified (principal); E11.36 Type 2 diabetes mellitus with diabetic cataract; E11.40 Type 2 diabetes mellitus with diabetic neuropathy, unspecified; E78.00 Pure hypercholesterolemia, unspecified; E78.5 Hyperlipidemia, unspecified; F31.9 Bipolar disorder, unspecified; F41.9 Anxiety disorder, unspecified; I10 Essential (primary) hypertension; I25.10 Atherosclerotic heart disease of native coronary artery without angina pectoris; I48.91 Unspecified atrial fibrillation; M19.90 Unspecified osteoarthritis, unspecified site; I25.2 Old myocardial infarction; Z79.4 Long term (current) use of insulin; Z79.82 Long term (current) use of aspirin
CPT/HCPCS: 80048; 84484; 85025; 93005; 99285

== ENCOUNTER → 2020-11-02 05:00 | Outpatient (REF) | payer MEDICARE, MEDICAID, SELFPAY ==
[2017-11-19 09:37] VITALS: BMI 31.8
[2020-10-10 04:26] VITALS: BMI 27.1
[2020-11-02 08:43] LABS: Hematocrit 38.1 % (40-54); Hemoglobin 12.7 g/dL (13.0-16.5); Mean Corp Hgb Conc 33.3 g/dL (32-36); Mean Corpuscular Hgb 29.7 pg (27.0-32.0); Mean Platelet Vol. 10.5 fl (6.2-12.0); Platelet Count 290 K/mm3 (150-450); RBC Distribution Width CV 13.3 % (11.6-14.6); RBC Distribution Width SD 43.9 fl (35.1-43.9); Red Blood Count 4.28 M/mm3 (4.6-6.2); White Blood Count 8.1 K/mm3 (4.4-11.0)
[2020-11-02 09:04] LABS: ALB/GLOB Ratio 0.8 RATIO (0.9-2.4); AST(SGOT) 13 U/L (15-37); Alanine Aminotransfer ALT/SGPT 24 U/L (16-61); Alkaline Phosphatase 60 U/L (45-117); Anion Gap 10 (5-15); BUN 33 mg/dL (7-18); BUN/Creat Ratio 15.4 RATIO (10-20); Calcium,Total 9.4 mg/dL (8.5-10.1); Chloride 105 mmol/L (98-107); Cholesterol 169 mg/dL (200); Creatinine, Serum 2.14 mg/dL (0.70-1.30); EST Glomerular Filtration Rate 33 mL/min (>60); Est Glom Filt Rate - Afr Amer 39 mL/min (>60); Globulin 3.8 g/dL (2.2-4.2); Glucose 138 mg/dL (74-106); High Density Lipoprotein 44 mg/dL; Protein, Total 6.8 g/dL (6.4-8.2); Sodium Level 140 mmol/L (136-145); Thyroid Stim Hormone (TSH) 1.87 uIU/mL (0.358-3.74); Triglycerides 109 mg/dL; Very Low Density Lipoprotein 22 mg/dL (5-40)
== END ==
LOC: OLS.SW400 05:00
PROVIDERS: PCP Family Medicine; Referring Provider Family Medicine; Visit Provider Family Medicine
DX: D64.9 Anemia, unspecified (principal); F03.90 Unspecified dementia, unspecified severity, without behavioral disturbance, psychotic disturbance, mood disturbance, and anxiety; E03.9 Hypothyroidism, unspecified; E78.5 Hyperlipidemia, unspecified
CPT/HCPCS: 36415; 80053; 80061; 84443; 85027

== ENCOUNTER → 2020-11-24 19:00 | Outpatient (REF) | payer MEDICARE, SELFPAY ==
[2017-11-19 09:37] VITALS: BMI 31.8
[2020-11-25 09:56] LABS: Bacteria 0 SEEN /hpf (None Seen); Mucous, Urine 0 SEEN /hpf (<or=2+); Red Blood Cells-Urine 0 SEEN /hpf (0-5); Squamous Epithelial Cells - UA 0 SEEN /hpf (0-5); White Blood Cells 0 SEEN /hpf (0-5)
[2020-11-25 10:09] LABS: Color, Urine Yellow (Yellow); Glucose, Dipstick 100 mg/dl (Normal); Ketone-Dipstick Negative (Negative); Leukocyte Esterase-Dipstick Negative /ul (Negative); Nitrite-Dipstick Negative (Negative); Occult Blood-Urine Negative /ul (Negative); Protein-Dipstick 30 mg/dl (Negative); Urine Bilirubin Dipstick Negative (Negative); Urine Clarity Clear (Clear); Urine Urobilinogen Normal (Normal)
== END ==
LOC: OLS.SW400 19:00
PROVIDERS: PCP Family Medicine; Visit Provider Family Medicine
DX: E78.5 Hyperlipidemia, unspecified (principal); E11.9 Type 2 diabetes mellitus without complications; F03.90 Unspecified dementia, unspecified severity, without behavioral disturbance, psychotic disturbance, mood disturbance, and anxiety; N39.0 Urinary tract infection, site not specified
CPT/HCPCS: 81001; 87086

== ENCOUNTER → 2020-12-06 05:00 | Outpatient (REF) | payer MEDICARE, MEDICAID, SELFPAY ==
[2017-11-19 09:37] VITALS: BMI 31.8
[2020-12-06 10:29] LABS: Hemoglobin A1c 8.1 % (3.8-5.6)
== END ==
LOC: OLS.SW400 05:00
PROVIDERS: PCP Family Medicine; Visit Provider Family Medicine
DX: E11.9 Type 2 diabetes mellitus without complications (principal)
CPT/HCPCS: 36415; 83036

== ENCOUNTER 2021-01-05 13:44 | Inpatient (IN) | payer MEDICARE, MEDICAID, SELFPAY ==
[2020-12-26 13:29] VITALS: BMI 31.8
[2021-01-05] VITALS (16 sets, daily range): BP systolic 111–155; BP diastolic 67–98; PULSE 60–87; RESP 13–26; TEMP 36.3–36.8; O2SAT 93–99; BMI 28.9; BMI 26.5
--- NOTE | 2021-01-05 14:10 | CT_ITS ---
EXAM: CT HEAD WITHOUT INTRAVENOUS CONTRAST : 1950 CLINICAL INDICATION: head injury TECHNIQUE: Multiple axial images were obtained of the head without intravenous contrast. This CT exam was performed using one or more of the following dose reduction techniques: automated exposure control, adjustment of the mA and/or kV according to patient size, and/or use of iterative reconstruction technique. This report was created using [employer] report generation technology. COMPARISON: 03/25/2020 FINDINGS: BRAIN AND EXTRA-AXIAL SPACES: The ventricular system and cortical sulci are at the upper limits of normal in size. There is minimal hypoattenuation in the periventricular white matter. No intra- or extra-axial hemorrhage. No evidence of acute infarct. No intracranial mass or mass effect. There is preservation of the yang/white matter interface. Posterior fossa structures are unremarkable. Basal cisterns are patent. BONES/JOINTS: Unremarkable. No discrete lytic or blastic abnormalities. SINUSES: Unremarkable as visualized. Clear. MASTOID AIR CELLS: Unremarkable. Clear. ORBITS: Visualized globes, extraocular muscles, optic nerves and retrobulbar fat appear unremarkable. CT/Brain/Head without Contrast IMPRESSION: No acute intracranial abnormality. There has been no change from the reference examination. Individualized dose optimization techniques were used for this CT. at 1517 Reported and signed by: Claude Fuentes MD Electronically Signed: Claude Fuentes MD at 15:16 EDT Tel , Service support ,
--- NOTE | 2021-01-05 14:10 | RAD_ITS ---
STUDY: X-RAY - LUMBAR SPINE REASON FOR EXAM: Male, 70 years old. Fall TECHNIQUE: 3 view(s) of the lumbar spine were obtained. COMPARISON: None FINDINGS: There is no evidence of fracture or dislocation in the lumbar spine. The vertebral body heights are well-maintained. There are advanced multilevel degenerative changes. There is a large amount stool in the colon. RAD/Lumbar Spine 2 or 3 Views IMPRESSION: No fracture or dislocation in the lumbar spine. Advanced degenerative changes. Constipation. Electronically Signed: Johny White MD at 15:34 EDT Tel , Service support ,
--- NOTE | 2021-01-05 14:10 | EKG12_ITS ---
Test Reason : FALL Blood Pressure : / mmHG Vent. Rate : 072 BPM Atrial Rate : 072 BPM P-R Int : 196 ms QRS Dur : 098 ms QT Int : 366 ms P-R-T Axes : 039 -30 054 degrees QTc Int : 400 ms Normal sinus rhythm Left axis deviation Low voltage QRS Abnormal ECG Confirmed by GRETA JASON, CHARI ([id number]), restaurant expeditor VENTURA FINK ([id number]) on 01/09/2021 7:53:10 AM Referred By: IKE Confirmed By:CHARI HERNANDES MD
--- NOTE | 2021-01-05 14:10 | RAD_ITS ---
STUDY: X-RAY - THORACIC SPINE REASON FOR EXAM: Male, 70 years old. Fall TECHNIQUE: 3 view(s) of the thoracic spine were obtained. COMPARISON: None. FINDINGS: There is no evidence of fracture or dislocation in the thoracic spine. The vertebral body heights are well-maintained. There are moderate degenerative changes. RAD/Thoracic Spine 2 Views IMPRESSION: No fracture or dislocation in the thoracic spine. Moderate degenerative Electronically Signed: Johny White MD at 15:33 EDT Tel , Service support ,
--- NOTE | 2021-01-05 14:10 | CT_ITS ---
EXAM: CT CERVICAL SPINE WITHOUT INTRAVENOUS CONTRAST : 1950 CLINICAL INDICATION: trauma TECHNIQUE: Helically acquired images were obtained of the cervical spine without intravenous contrast. 2D reformatted images were reviewed. This CT exam was performed using one or more of the following dose reduction techniques: automated exposure control, adjustment of the mA and/or kV according to patient size, and/or use of iterative reconstruction technique. This report was created using [employer] report generation technology. COMPARISON: 11/17/2019 FINDINGS: VERTEBRAE: There is anterior spondylolisthesis of C4 on C5 of 3 mm which is stable. DISCS/SPINAL CANAL/NEURAL FORAMINA: There is disc space narrowing at C5-6 and C6-7. There is left bony neural foraminal narrowing at C2 - 3. There is right bony neural foraminal narrowing at C3-4. There is right bony neural foraminal narrowing at C4-5. There is mild bilateral bony neural foraminal narrowing at C6/7. SOFT TISSUES: Unremarkable. No prevertebral soft tissue swelling. LYMPH NODES: Unremarkable. No cervical adenopathy. LUNG APICES: Unremarkable as visualized. Clear. CT/Spine Cervical without Contras IMPRESSION: 1. No acute osseous abnormalities. There is been no significant change from the reference examination. 2. Multilevel degenerative change with disc space narrowing and bony neural foraminal narrowing. This is unchanged from the reference exam. Individualized dose optimization techniques were used for this CT. at 1520 Reported and signed by: Claude Fuentes MD Electronically Signed: Claude Fuentes MD at 15:18 EDT Tel , Service support ,
--- NOTE | 2021-01-05 14:13 | EDS_ITS ---
HPI HPI - Fall History of Present Illness Chief Complaint: Fall Detail of Chief Complaint: Falls x2 today Informant: patient Narrative Narrative: Patient presents to the emergency department via EMS from longterm. Patient states that he is fallen x2 today. Patient states that he was urinating and fell backwards and hit his head. He denies loss of consciousness. He was ambulatory afterwards. Patient states that he had a second fall as well. Patient states he just generally feels weak and at times lightheaded. He denies chest pain or shortness of breath. He denies abdominal pain. He complains mostly of pain in his head and back. Patient denies urinary symptoms. [facility] Medical History Afib Anxiety Arthritis Atherosclerotic heart disease of [place] coronary artery without angina pectoris Back problem Bipolar disorder Cataracts, bilateral Depression Diabetes mellitus, type II GI problem Headache Heart disease High cholesterol HTN (hypertension) Hyperlipidemia Hypertension Kidney disease Neuropathy Osteoarthritis Recurrent UTI Seasonal allergies STEMI (ST elevation myocardial infarction) (11/19/17) Traumatic brain injury Home Medications ferrous sulfate 325 mg PO DAILY 04/09/16 [History Last Taken 12/29/18] multivitamin 1 tab PO DAILY 09/07/16 [History Last Taken 12/29/18] aspirin 81 mg tablet,delayed release 81 mg PO QDAY 02/27/17 [History Last Taken 12/29/18] nitroglycerin 0.4 mg sublingual tablet 0.4 mg SUBLINGUAL Q5M PRN 02/27/17 [History Last Taken 12/29/18] amlodipine 10 mg tablet 10 mg PO DAILY 02/03/19 [History Last Taken Unknown] cholecalciferol (vitamin D3) 25 mcg (1,000 unit) capsule 1,000 unit PO DAILY 02/03/19 [History Last Taken Unknown] carvedilol 6.25 mg PO BID 03/25/20 [History Last Taken Unknown] fenofibrate nanocrystallized 145 mg tablet 200 mg PO DAILY tab 09/08/20 [His tory Last Taken Unknown] insulin glargine 100 unit/mL (3 mL) subcutaneous pen 32 unit SUBCUT DAILY ml 09/08/20 [History Last Taken Unknown] levothyroxine 112 mcg PO DAILY 09/23/20 [History Last Taken Unknown] ticagrelor [Brilinta] 90 mg PO BID 09/23/20 [History Last Taken Unknown] diclofenac sodium 1 ea TOPICAL DAILY 01/05/21 [History Last Taken Unknown] duloxetine 60 mg PO DAILY 01/05/21 [History Last Taken Unknown] fiber 1 cap PO DAILY 01/05/21 [History Last Taken Unknown] fluticasone propionate 1 spray INTRANASAL DAILY 01/05/21 [History Last Taken Unknown] gabapentin 600 mg PO BID 01/05/21 [History Last Taken Unknown] insulin aspart U-100 [Novolog U-100 Insulin aspart] See Rx Instructions .ROUTE .COMPLEX 01/05/21 [History Last Taken Unknown] lorazepam 0.5 mg PO BID 01/05/21 [History Last Taken Unknown] oxcarbazepine [Trileptal] 300 mg PO QHS 01/05/21 [History Last Taken Unknown] oxybutynin chloride 5 mg PO TID 01/05/21 [History Last Taken Unknown] paliperidone palmitate [Invega Sustenna] 234 mg IM Q30D 01/05/21 [History Last Taken Unknown] quetiapine [Seroquel] 25 mg PO QHS 01/05/21 [History Last Taken Unknown] trazodone 50 mg PO QHS 01/05/21 [History Last Taken Unknown] Allergy/AdvReac Type Severity Reaction Status Date / Time atorvastatin [From Lipitor] Allergy Unknown Verified 01/05/21 13:50 Penicillins Allergy Unknown Verified 01/05/21 13:50 lisinopril AdvReac Unknown unknown Verified 01/05/21 13:50 codeine AdvReac Upset Verified 01/05/21 13:50 Stomach doxycycline AdvReac Other Verified 01/05/21 13:50 nickel AdvReac Rash Verified 01/05/21 13:50 LYCOPEEN AdvReac Other Uncoded 01/05/21 13:50 Family History Father Arthritis Bleeding disorder Heart disease Hypertension Mother Hypertension Surgical History Stented coronary artery (11/19/17) Social History Smoking Status: Never smoker alcohol intake: never substance use type: does not use caffeine: Yes ROS ROS ED Constitutional Constitutional ED: Reports systems reviewed and no addt'l complaints, except as documented; Denies body ache(s), change in weight or chills Eyes Eyes: Denies acute decrease in peripheral vision, change in vision, double vision or loss of vision ENT ENT ED: Reports none; Denies ear pain, lip swelling, loss taste/smell, neck pain, otalgia or sore throat Cardiovascular Cardiovascular: Reports none; Denies abdominal pain, chest pain with activity, leg edema, lightheadedness, palpitations, rapid heart rate or syncope Respiratory/Chest Respiratory/Chest: Reports none; Denies change in mental status, dry cough, dyspnea, hemoptysis, shortness of breath at rest or shortness of breath with exertion Gastrointestinal Gastrointestinal: Reports none; Denies abdominal pain, change in stool character, diarrhea, hematemesis, hematochezia, melena, rectal bleeding or vomiting Genitourinary Genitourinary ED: Reports none; Denies abdominal discomfort, anuria, dysuria, genital pain or polyuria Musculoskeletal Musculoskeletal: Reports none, back pain and neck pain; Denies arthralgias, difficulty walking, extremity pain, muscle weakness or myalgias Integumentary Reports none; Denies abscess or rash Neurologic Neurologic: Reports none and headache(s); Denies abnormal gait, confusion, focal weakness, frequent falls, loss of vision, numbness, paresthesias, radicular pain, vertigo or weakness Psychiatric Psychiatric: Reports systems reviewed and no addt'l complaints, except as documented and none; Denies behavioral changes, confusion, difficulty concentrating, hallucinations, suicidal ideation, tactile hallucinations or visual hallucinations Endocrine Endocrinology: Denies none, cold intolerance, excessive sweating, fatigue or heat intolerance Hematologic/Lymphatic Hematologic/Lymphatic: Reports none; Denies anemia, easy bleeding or easy bruising Allergic/Immunologic Allergic/Immunologic ED: Denies as per HPI, none, lip swelling, mouth swelling, throat swelling, tongue swelling or hives EXAM Physical Exam Const Vital Signs: 01/05/21 13:47 01/05/21 13:50 01/05/21 15:53 Temperature 98.2 F Temperature Source Temporal Pulse Rate 78 67 Pulse Rate [Lying] Pulse Rate [Sitting] Pulse Rate [Standing] Respiratory Rate 16 22 H Respiratory Effort Normal Non-Labored Blood Pressure 147/67 H 132/72 H Blood Pressure [Lying] Blood Pressure [Sitting] Blood Pressure [Standing] Blood Pressure Mean 93 92 Blood Pressure Mean [Lying] Blood Pressure Mean [Sitting] Blood Pressure Mean [Standing] Pulse Ox 95 Oxygen Delivery Method Room Air Room Air 01/05/21 16:18 Temperature Temperature Source Pulse Rate Pulse Rate [Lying] 82 Pulse Rate [Sitting] 81 Pulse Rate [Standing] 87 Respiratory Rate Respiratory Effort Blood Pressure Blood Pressure [Lying] 123/72 H Blood Pressure [Sitting] 124/80 H Blood Pressure [Standing] 111/75 Blood Pressure Mean Blood Pressure Mean [Lying] 89 Blood Pressure Mean [Sitting] 94 Blood Pressure Mean [Standing] 87 Pulse Ox Oxygen Delivery Method Positive well nourished and well developed General Appearance ED: well developed and NAD HEENT Reports TM's clear and moist mucous membranes HEENT Narrative: Patient has an area of faint erythema to the left temporal scalp with no bony step-offs noted. No hematomas noted. normocephalic; Negative for trauma or tenderness Tympanic Membrane ED: Yes TM's clear Eyes PERRL and EOMs intact bilaterally General Eye ED: Negative for pale conjunctiva or scleral icterus Neck no lymphadenopathy, supple and no JVD Neck Narrative: Mild diffuse C-spine tenderness on palpation. He has good range of motion. No bony step-offs noted. General: tenderness Chest Wall inspection of chest normal and palpation of chest normal Chest: Negative for tenderness Resp normal respiratory effort and clear to auscultation bilaterally Effort and Inspection: Negative for respiratory distress or pain with movement Auscultation: Negative for rhonchi, wheezes or diminished lung sounds Cardio regular rate, regular rhythm, S1 normal heart sound, S2 normal heart sound and no murmurs Peripheral Pulses: pulses 2+ throughout GI normal to inspection, nondistended, normoactive bowel sounds, soft to palpation, non-tender, non-distended and no masses Back/Spine no CVA tenderness and no thoracic nor lumbar tenderness Back/Spine Narrative: Patient has diffuse tenderness over the thoracic and lumbar spine. No ecchymosis or bruising noted. Negative straight leg raises. Deep tendon reflexes plus 2 out of 4 bilaterally at the patella and Achilles. Patient has normal range of motion of the upper and lower extremities. Extremity normal to inspection General Extremety ED: Negative for edema General Extremity: Negative for edema Neuro oriented x3, CN's II-XII intact bilaterally, no sensory deficits noted and gait normal Sensorium / Orientation: awake, alert, oriented to person, oriented to place and oriented to time Motor Exam: strength 5/5 throughout and strength abnormal Psych mental status grossly normal Skin no rashes or lesions noted and no wounds MDM MDM MDM Narrative Medical decision making narrative: IV line established on arrival. Patient was given normal saline. Patient placed on a monitor. Patient orthostatic vital signs were negative. Case discussed with hospitalist will evaluate patient for admission. Patient is noted to have acute kidney injury. Clinically patient appears dehydrated. I do not think patient had seizure activity based on description of what happened. Patient sister also states that oftentimes when he gets anxious and has a panic attack his eyes will roll back in his head. Lab Data Attestation: I reviewed the patient's lab results. Labs: Laboratory Results - last 24 hr 01/05/21 01/05/21 01/05/21 13:50 13:50 15:06 WBC 10.1 RBC 3.96 L Hgb 11.9 L Hct 36.2 L MCV 91.4 MCH 30.1 MCHC 32.9 RDW Std Deviation 45.2 H RDW Coeff of Shashank 13.3 Plt Count 269 MPV 10.7 Immature Gran % (Auto) 0.400 Neut % (Auto) 83.7 H Lymph % (Auto) 6.2 L [place] % (Auto) 6.8 Eos % (Auto) 2.7 Baso % (Auto) 0.2 Absolute Neuts (auto) 8.5 H Absolute Lymphs (auto) 0.63 L Nucleated RBC % 0 Sodium 135 L Potassium 4.7 Chloride 101 Carbon Dioxide 28.0 Anion Gap 6 BUN 45 H Creatinine 3.36 H Estim Creat Clear Calc 19.87 Est GFR (MDRD) Af Amer 23 L Est GFR (MDRD) Non-Af 19 L BUN/Creatinine Ratio 13.4 Glucose 272 H Calcium 9.9 Troponin I High Sens 7 Urine Color Yellow Urine Clarity Clear Urine pH 7.0 Ur Specific [place] 1.010 Urine Protein 30 H Urine Glucose (UA) 250 H Urine Ketones Negative Urine Occult Blood Negative Urine Nitrite Negative Urine Bilirubin Negative Urine Urobilinogen Normal Ur Leukocyte Esterase Negative Urine RBC 0 SEEN Urine WBC 0 SEEN Ur Squamous Epith Cells 0 SEEN Urine Bacteria 0 SEEN Urine Mucus 0 SEEN Radiography Diagnostic Testing: Clinical Impression(s) from Imaging Studies Brain CT 01/05/21 14:10 IMPRESSION: No acute intracranial abnormality. There has been no change from the reference examination. Individualized dose optimization techniques were used for this CT. at 1517 Reported and signed by: Claude Fuentes MD Electronically Signed: Claude Fuentes MD at 15:16 EDT Tel , Service support , Cervical Spine CT 01/05/21 14:10 IMPRESSION: 1. No acute osseous abnormalities. There is been no significant change from the reference examination. 2. Multilevel degenerative change with disc space narrowing and bony neural foraminal narrowing. This is unchanged from the reference exam. Individualized dose optimization techniques were used for this CT. at 1520 Reported and signed by: Claude Fuentes MD Electronically Signed: Claude Fuentes MD at 15:18 EDT Tel , Service support , Lumbar Spine X-Ray 01/05/21 14:10 IMPRESSION: No fracture or dislocation in the lumbar spine. Advanced degenerative changes. Constipation. Electronically Signed: Johny White MD at 15:34 EDT Tel , Service support , Thoracic Spine X-Ray 01/05/21 14:10 IMPRESSION: No fracture or dislocation in the thoracic spine. Moderate degenerative Electronically Signed: Johny White MD at 15:33 EDT Tel , Service support , Chest X-Ray 01/05/21 14:35 IMPRESSION: No acute thoracic pathology. Electronically Signed: Johny White MD at 15:32 EDT Tel , Service support , 1 view chest x-ray obtained interpreted by myself no acute disease process. Radiology in agreement. Three-view x-rays of lumbar spine obtained show degenerative changes as interpreted by myself. Radiology in agreement. 2 view x-rays of thoracic spine interpreted by myself as no acute fractures. Radiology in agreement. EKG Initial EKG: Attestation: I personally reviewed and interpreted this EKG as follows: Comments: Sinus rhythm with a ventricular rate of 72 bpm with no acute ST segment changes. Discharge Plan Triage Chief Complaint: Fall ED Provider: Xenia White Dx/Rx/DC Orders Clinical Impression: Falls, Acute kidney injury Prescriptions: No Action aspirin 81 mg tablet,delayed release (DR/EC) 81 mg PO QDAY RF: 0 nitroglycerin [Nitrostat] 0.4 mg tablet, sublingual 0.4 mg SUBLINGUAL Q5M PRN (Reason: CHEST PAIN) RF: 0 amlodipine 10 mg tablet 10 mg PO DAILY RF: 0 cholecalciferol (vitamin D3) 1,000 unit capsule 1,000 unit PO DAILY RF: 0 fenofibrate nanocrystallized 145 mg tablet 200 mg PO DAILY RF: 0 insulin glargine 100 unit/mL (3 mL) insulin pen 32 unit subcut DAILY RF: 0 ferrous sulfate 325 MG tablet 325 mg PO DAILY RF: 0 multivitamin 1 EACH tablet 1 tab PO DAILY RF: 0 carvedilol 6.25 MG tablet 6.25 mg PO BID RF: 0 levothyroxine 112 mcg tablet 112 mcg PO DAILY RF: 0 Brilinta 90 mg tablet 90 mg PO BID RF: 0 quetiapine [Seroquel] 25 mg Tablet 25 mg PO QHS RF: 0 gabapentin 600 mg Tablet 600 mg PO BID RF: 0 trazodone 50 mg Tablet 50 mg PO QHS RF: 0 oxcarbazepine [Trileptal] 300 mg Tablet 300 mg PO QHS RF: 0 lorazepam 0.5 mg Tablet 0.5 mg PO BID RF: 0 insulin aspart U-100 [Novolog U-100 Insulin aspart] 100 unit/mL Solution See Rx Instructions .ROUTE .COMPLEX RF: 0 oxybutynin chloride 5 mg Tablet 5 mg PO TID RF: 0 fluticasone propionate 50 mcg/actuation [place],Suspension 1 spray INTRANASAL DAILY RF: 0 fiber Capsule 1 cap PO DAILY RF: 0 duloxetine 60 mg Capsule,Delayed Release(Dr/Ec) 60 mg PO DAILY RF: 0 diclofenac sodium 1 % Gel 1 ea TOPICAL DAILY RF: 0 Invega Sustenna 234 mg/1.5 mL Syringe 234 mg IM Q30D RF: 0 Primary Care Provider: Issa Trinidad Referrals: Issa Trinidad MD [Primary Care Provider] - Disposition Disposition: Acute Care Hospital [facility]
[2021-01-05] MEDS: 0.9% Normal Saline 1,000 ML 150 ML IV ×2 (14:29→21:39)
--- NOTE | 2021-01-05 14:35 | RAD_ITS ---
STUDY: X-RAY CHEST REASON FOR EXAM: Male, 70 years old. Fall TECHNIQUE: Frontal view of the chest COMPARISON: 03/25/20 FINDINGS: The lungs are clear. There are no pleural effusions. There is no pneumothorax. The heart is normal in size. The visualized osseous structures are within normal limits. RAD/Chest 1 View (Portable) IMPRESSION: No acute thoracic pathology. Electronically Signed: Johny White MD at 15:32 EDT Tel , Service support ,
[2021-01-05 14:45] LABS: Absolute Lymphocyte Count 0.63 X10^3/uL (0.83-4.51); Absolute Neutrophil Count 8.5 X10^3/uL (2.0-7.7); Basophil# 0.02 X10^3/uL; Basophil% 0.2 % (0-1); Eosinophil# 0.27 X10^3/uL; Eosinophils% 2.7 % (0-5); Hematocrit 36.2 % (40-54); Hemoglobin 11.9 g/dL (13.0-16.5); Lymphocyte # 0.63 X10^3/ul (0.83-4.51); Lymphocyte % 6.2 % (19-41); Mean Corp Hgb Conc 32.9 g/dL (32-36); Mean Corpuscular Hgb 30.1 pg (27.0-32.0); Mean Corpuscular Volume 91.4 fL (80-94); Mean Platelet Vol. 10.7 fl (6.2-12.0); Monocyte# 0.69 X10^3/uL; Monocyte% 6.8 % (0-10); NRBC Flagged by Analyzer 0 % (0-5); Neutrophil # 8.49 X10^3/uL (2.7-7.7); Neutrophil % 83.7 % (47-70); Platelet Count 269 K/mm3 (150-450); RBC Distribution Width CV 13.3 % (11.6-14.6); RBC Distribution Width SD 45.2 fl (35.1-43.9); Red Blood Count 3.96 M/mm3 (4.6-6.2); White Blood Count 10.1 K/mm3 (4.4-11.0)
[2021-01-05 14:53] LABS: Anion Gap 6 (5-15); BUN 45 mg/dL (7-18); BUN/Creat Ratio 13.4 RATIO (10-20); Calcium,Total 9.9 mg/dL (8.5-10.1); Chloride 101 mmol/L (98-107); Creatinine, Serum 3.36 mg/dL (0.70-1.30); EST Glomerular Filtration Rate 19 mL/min (>60); Est Glom Filt Rate - Afr Amer 23 mL/min (>60); Estimated Creatinine Clearance 19.87 ml/min; Glucose 272 mg/dL (74-106); Potassium 4.7 mmol/L (3.5-5.1); Sodium Level 135 mmol/L (136-145); Troponin-I HS 7 pg/mL (3.0-78.0)
[2021-01-05 15:12] LABS: Bacteria 0 SEEN /hpf (None Seen); Mucous, Urine 0 SEEN /hpf (<or=2+); Red Blood Cells-Urine 0 SEEN /hpf (0-5); Squamous Epithelial Cells - UA 0 SEEN /hpf (0-5); White Blood Cells 0 SEEN /hpf (0-5)
[2021-01-05 15:18] LABS: Color, Urine Yellow (Yellow); Glucose, Dipstick 250 mg/dl (Normal); Ketone-Dipstick Negative (Negative); Leukocyte Esterase-Dipstick Negative /ul (Negative); Nitrite-Dipstick Negative (Negative); Occult Blood-Urine Negative /ul (Negative); Protein-Dipstick 30 mg/dl (Negative); Urine Bilirubin Dipstick Negative (Negative); Urine Clarity Clear (Clear); Urine Urobilinogen Normal (Normal)
--- NOTE | 2021-01-05 17:02 | PCM.HP.STD ---
HPI - General General Date of Admission: 01/05/21 Date of Service: 01/05/21 Chief Complaint: Syncope HPI Narrative RENATO NOONAN, is a 70 M who presents presents with 2 syncopal episodes today. Second was when he was urinating and fell backwards hitting his head. Patient presented to the emergency room and underwent imaging that showed no acute fractures but did note that his creatinine was elevated from his baseline, his creatinine was 3.36 whereas his baseline is 2.14. Patient's sister is at bedside and states that his mouth is sounded dry when she is talking on the phone. She has not seen him because of the custodial being on lockdown. 7 emergency room, patient received IV fluids. Given his syncope and his acute kidney injury, decision was made to admit the patient. FOR[facility]LY [facility], LATER [facility] Medical History Afib Anxiety Arthritis Atherosclerotic heart disease of [place] coronary artery without angina pectoris Back problem Bipolar disorder Cataracts, bilateral Depression Diabetes mellitus, type II GI problem Headache Heart disease High cholesterol HTN (hypertension) Hyperlipidemia Hypertension Kidney disease Neuropathy Osteoarthritis Recurrent UTI Seasonal allergies STEMI (ST elevation myocardial infarction) (11/19/17) Traumatic brain injury Home Medications ferrous sulfate 325 mg PO DAILY 04/09/16 [History Last Taken 12/29/18] multivitamin 1 tab PO DAILY 09/07/16 [History Last Taken 12/29/18] aspirin 81 mg tablet,delayed release 81 mg PO QDAY 02/27/17 [History Last Taken 12/29/18] nitroglycerin 0.4 mg sublingual tablet 0.4 mg SUBLINGUAL Q5M PRN 02/27/17 [History Last Taken 12/29/18] amlodipine 10 mg tablet 10 mg PO DAILY 02/03/19 [History Last Taken Unknown] cholecalciferol (vitamin D3) 25 mcg (1,000 unit) capsule 1,000 unit PO DAILY 02/03/19 [History Last Taken Unknown] carvedilol 6.25 mg PO BID 03/25/20 [History Last Taken Unknown] fenofibrate nanocrystallized 145 mg tablet 200 mg PO DAILY tab 09/08/20 [History Last Taken Unknown] insulin glargine 100 unit/mL (3 mL) subcutaneous pen 32 unit SUBCUT DAILY ml 09/08/20 [History Last Taken Unknown] levothyroxine 112 mcg PO DAILY 09/23/20 [History Last Taken Unknown] ticagrelor [Brilinta] 90 mg PO BID 09/23/20 [History Last Taken Unknown] diclofenac sodium 1 ea TOPICAL DAILY 01/05/21 [History Last Taken Unknown] duloxetine 60 mg PO DAILY 01/05/21 [History Last Taken Unknown] fiber 1 cap PO DAILY 01/05/21 [History Last Taken Unknown] fluticasone propionate 1 spray INTRANASAL DAILY 01/05/21 [History Last Taken Unknown] gabapentin 600 mg PO BID 01/05/21 [History Last Taken Unknown] insulin aspart U-100 [Novolog U-100 Insulin aspart] See Rx Instructions .ROUTE .COMPLEX 01/05/21 [History Last Taken Unknown] lorazepam 0.5 mg PO BID 01/05/21 [History Last Taken Unknown] oxcarbazepine [Trileptal] 300 mg PO QHS 01/05/21 [History Last Taken Unknown] oxybutynin chloride 5 mg PO TID 01/05/21 [History Last Taken Unknown] paliperidone palmitate [Invega Sustenna] 234 mg IM Q30D 01/05/21 [History Last Taken Unknown] quetiapine [Seroquel] 25 mg PO QHS 01/05/21 [History Last Taken Unknown] trazodone 50 mg PO QHS 01/05/21 [History Last Taken Unknown] Allergy/AdvReac Type Severity Reaction Status Date / Time atorvastatin [From Lipitor] Allergy Unknown Verified 01/05/21 13:50 Penicillins Allergy Unknown Verified 01/05/21 13:50 lisinopril AdvReac Unknown unknown Verified 01/05/21 13:50 codeine AdvReac Upset Verified 01/05/21 13:50 Stomach doxycycline AdvReac Other Verified 01/05/21 13:50 nickel AdvReac Rash Verified 01/05/21 13:50 LYCOPEEN AdvReac Other Uncoded 01/05/21 13:50 Family History Father Arthritis Bleeding disorder Heart disease Hypertension Mother Hypertension Surgical History Stented coronary artery (11/19/17) Social History Smoking Status: Never smoker alcohol intake: never substance use type: does not use caffeine: Yes ROS ROS Narrative Patient states that he uses a water fountain to drink. His sister does not think that he drinks enough. Complains of back pain from the fall. It was noted that when the patient was passing out he was shaking. Patient has no prior history of seizures. All review of systems were negative except as mentioned above in the history of present illness and the other review of systems. Vital Signs Vital Signs Vital Signs: 01/05/21 13:47 01/05/21 13:50 01/05/21 15:53 Temperature 36.8 C Temperature Source Temporal Pulse Rate 78 67 Pulse Rate [Lying] Pulse Rate [Sitting] Pulse Rate [Standing] Respiratory Rate 16 22 H Respiratory Effort Normal Non-Labored Blood Pressure 147/67 H 132/72 H Blood Pressure [Lying] Blood Pressure [Sitting] Blood Pressure [Standing] Blood Pressure Mean 93 92 Blood Pressure Mean [Lying] Blood Pressure Mean [Sitting] Blood Pressure Mean [Standing] Pulse Ox 95 Oxygen Delivery Method Room Air Room Air 01/05/21 16:18 Temperature Temperature Source Pulse Rate Pulse Rate [Lying] 82 Pulse Rate [Sitting] 81 Pulse Rate [Standing] 87 Respiratory Rate Respiratory Effort Blood Pressure Blood Pressure [Lying] 123/72 H Blood Pressure [Sitting] 124/80 H Blood Pressure [Standing] 111/75 Blood Pressure Mean Blood Pressure Mean [Lying] 89 Blood Pressure Mean [Sitting] 94 Blood Pressure Mean [Standing] 87 Pulse Ox Oxygen Delivery Method Weight Weight: 88.9 kg Body Mass Index (BMI) 28.9 Physical Exam Const alert General Appearance: cooperative HEENT normocephalic HEENT Narrative: Does have a superficial abrasion over his left scalp in his hairline. Mucous membranes dry and patient does have this greenish-yang discoloration over his tongue. Eyes PERRL and EOMs intact bilaterally Resp normal respiratory effort, no retractions, no use of accessory muscles and clear to auscultation bilaterally Cardio regular rate, regular rhythm, S1 normal heart sound and S2 normal heart sound GI normal to inspection, nondistended, normoactive bowel sounds, soft to palpation and non-tender Extremity normal to inspection and full ROM Skin skin turgor normal Skin Narrative: Abrasion over his left scalp in the hairline. Neuro CN's II-XII intact bilaterally, moves all extremities and no focal motor deficits Sensorium / Orientation: alert Psych affect normal Results Lab / Micro Data Attestation: I reviewed the patient's lab results. Result Diagrams: 01/05/21 13:50 01/05/21 13:50 Labs: Laboratory Results - last 24 hr 01/05/21 13:50: WBC 10.1, RBC 3.96 L, Hgb 11.9 L, Hct 36.2 L, MCV 91.4, MCH 30.1, MCHC 32.9, RDW Std Deviation 45.2 H, RDW Coeff of Shashank 13.3, Plt Count 269, MPV 10.7, Immature Gran % (Auto) 0.400, Neut % (Auto) 83.7 H, Lymph % (Auto) 6.2 L, [place] % (Auto) 6.8, Eos % (Auto) 2.7, Baso % (Auto) 0.2, Absolute Neuts (auto) 8.5 H, Absolute Lymphs (auto) 0.63 L, Nucleated RBC % 0 01/05/21 13:50: Sodium 135 L, Potassium 4.7, Chloride 101, Carbon Dioxide 28.0, Anion Gap 6, BUN 45 H, Creatinine 3.36 H, Estim Creat Clear Calc 19.87, Est GFR (MDRD) Af Amer 23 L, Est GFR (MDRD) Non-Af 19 L, BUN/Creatinine Ratio 13.4, Glucose 272 H, Calcium 9.9, Troponin I High Sens 7 01/05/21 15:06: Urine Color Yellow, Urine Clarity Clear, Urine pH 7.0, Ur Specific [place] 1.010, Urine Protein 30 H, Urine Glucose (UA) 250 H, Urine Ketones Negative, Urine Occult Blood Negative, Urine Nitrite Negative, Urine Bilirubin Negative, Urine Urobilinogen Normal, Ur Leukocyte Esterase Negative, Urine RBC 0 SEEN, Urine WBC 0 SEEN, Ur Squamous Epith Cells 0 SEEN, Urine Bacteria 0 SEEN, Urine Mucus 0 SEEN Rhythm Strip Rhythm Strip: A-fib Ectopy: None EKG Initial EKG: Attestation: I personally reviewed and interpreted this EKG as follows: Prior EKG tracings: available for review EKG Rhythm Intrepretation: Sinus Rhythm Radiology Impression Brain CT 01/05/21 14:10 IMPRESSION: No acute intracranial abnormality. There has been no change from the reference examination. Individualized dose optimization techniques were used for this CT. at 1517 Reported and signed by: Claude Fuentes MD Electronically Signed: Claude Fuentes MD at 15:16 EDT Tel , Service support , Cervical Spine CT 01/05/21 14:10 IMPRESSION: 1. No acute osseous abnormalities. There is been no significant change from the reference examination. 2. Multilevel degenerative change with disc space narrowing and bony neural foraminal narrowing. This is unchanged from the reference exam. Individualized dose optimization techniques were used for this CT. at 1520 Reported and signed by: Claude Fuentes MD Electronically Signed: Claude Fuentes MD at 15:18 EDT Tel , Service support , Lumbar Spine X-Ray 01/05/21 14:10 IMPRESSION: No fracture or dislocation in the lumbar spine. Advanced degenerative changes. Constipation. Electronically Signed: Johny White MD at 15:34 EDT Tel , Service support , Thoracic Spine X-Ray 01/05/21 14:10 IMPRESSION: No fracture or dislocation in the thoracic spine. Moderate degenerative Electronically Signed: Johny White MD at 15:33 EDT Tel , Service support , Chest X-Ray 01/05/21 14:35 IMPRESSION: No acute thoracic pathology. Electronically Signed: Johny White MD at 15:32 EDT Tel , Service support , Assessment & Plan Assessment/Plan (1) Syncope: QUALIFIERS: Syncope type: vasovagal syncope Qualified Code(s): R55 - Syncope and collapse (2) RIVAS (acute kidney injury): PLAN: 1. Syncope Suspect vasovagal Patient was having shaking but patient has no prior history of seizures and this was more likely related with a vasovagal syncope. No additional seizure work-up will be performed. Orthostatics were negative Patient though is dehydrated and will treat him accordingly. 2. Acute kidney injury Likely secondary to prerenal azotemia IV fluids Recheck BMP in the morning 3. Atrial fibrillation Appears to be persistent Rate controlled Continue with carvedilol Patient is not on anticoagulation due to concerns about his chronic kidney disease reading Renato Sawant's note, so he is on asa and ticagrelor Given his falls certainly increases the risk of further complications with anticoagulation. follow up with cardiology 4. Schizoaffective disorder Continue with Trileptal, Invega, Seroquel Follow-up with psychiatry as outpatient 5. Diabetes mellitus type 2 Continue with his basal insulin scale insulin 6. VTE prophylaxis: Not indicated given his current observation status 7. CODE STATUS: Reviewed the custodial notes and patient is full code. Discussed with the patient sister at bedside. Plan is to monitor the patient overnight to see how he does and if he staying stable and his kidney functions improve then he can likely be discharged back to his custodial. Charges/Coding Visit Charges OBSV E&M: 42044 Initial observation care L3
--- NOTE | 2021-01-05 17:57 | NURSING ---
this RN called and spoke with nurse @ [facility]. She updated this RN on covid vaccine dates. RN to fax med list to [facility] fax.
--- NOTE | 2021-01-05 19:20 | NURSING ---
Pt sonny into 20's on tele monitor. Staff into room. Pt unresponsive. Placing bed in CPR mode and pt became responsive. Staff and Dr Parada to room. Pt alert and talking with staff. Tele monitor reviewed which showed 13 second pause. director bioinformatics received orders from Dr Parada to hold coreg and to consult cardiology at this time.
--- NOTE | 2021-01-05 19:21 | EKG12_ITS ---
Test Reason : STAT Blood Pressure : / mmHG Vent. Rate : 058 BPM Atrial Rate : 312 BPM P-R Int : 000 ms QRS Dur : 092 ms QT Int : 400 ms P-R-T Axes : 000 -23 043 degrees QTc Int : 392 ms Atrial fibrillation Low voltage QRS Abnormal ECG When compared with ECG of 05-JAN-2021 14:21, MANUAL COMPARISON REQUIRED, DATA IS UNCONFIRMED Confirmed by GRETA JASON, CHARI ([id number]), associate entertainment editor VENTURA FINK ([id number]) on 01/10/2021 9:32:27 AM Referred By: EMI Confirmed By:CHARI HERNANDES MD
--- NOTE | 2021-01-05 19:43 | NURSING ---
This RN called report to Michael WOOD BUCKER. Pt to be transferred to ICU Bed 1
--- NOTE | 2021-01-05 19:46 | NURSING ---
Dr Hannah to [facility], pt to have temporary pacer placed this evening.
--- NOTE | 2021-01-05 20:05 | NURSING ---
Called pt's sister, Ann Marie, per pt request to notify that pt is being transferred to ICU. Ann Marie voiced understanding. Jenn RN
--- NOTE | 2021-01-05 20:20 | CON.PCM.CA_ITS ---
Assessment & Plan Assessment/Plan (1) RIVAS (acute kidney injury): (2) CRI (chronic renal insufficiency): QUALIFIERS: Chronic kidney disease stage: stage 3 (moderate) Qualified Code(s): N18.3 - Chronic kidney disease, stage 3 (moderate) (3) Schizoaffective disorder: (4) Stented coronary artery: (5) Diabetes mellitus, type II: QUALIFIERS: Diabetes mellitus complication status: with unspecified complications Diabetes mellitus predatory animal exterminator insulin use: with predatory animal exterminator use Qualified Code(s): E11.8 - Type 2 diabetes mellitus with unspecified complications; Z79.4 - intermodal dispatcher (current) use of insulin (6) Hyperlipidemia: QUALIFIERS: Hyperlipidemia type: pure hypercholesterolemia Qualified Code(s): E78.00 - Pure hypercholesterolemia, unspecified; E78.0 - Pure hypercholesterolemia (7) Bipolar disorder: QUALIFIERS: Active/Remission status: remission status unspecified Qualified Code(s): F31.9 - Bipolar disorder, unspecified (8) Traumatic brain injury: (9) Syncope: QUALIFIERS: Syncope type: vasovagal syncope Qualified Code(s): R55 - Syncope and collapse (10) Atrial fibrillation: QUALIFIERS: Atrial fibrillation type: paroxysmal Qualified Code(s): I48.0 - Paroxysmal atrial fibrillation PLAN: 70-year-old patient admitted from a snf with syncopal episode, no symptoms of chest pain and cardiac biomarkers have been negative with high sensitive troponin pain Patient has multiple medical comorbidities CAD with a history of a STEMI/myocardial infarction in October 2017 has a PCI and stent to the mid LAD using drug-eluting stent Patient has a recurrent episode of fall with the history of traumatic brain injury and has been seen and followed at the cardiology clinic here at [facility] and decided not a candidate for anticoagulation. On this admission he had syncopal episode documented twice in the snf and while in the PCU noted he had long pause with multiple artifacts Repeated EKG twice showed A. fib with controlled ventricular rate and has been stable hemodynamically Patient also has acute kidney injury with dehydration and worsening of his creatinine from the baseline of 2.5 Cardiac recommendation plan; 1. Patient is stable hemodynamically now, I transfer him to the intensive care unit for observation And to use a transcutaneous pacer if needed in addition to keep atropine and dopamine 2. We will continue on IV hydration 3. Beta-summer discontinued 4. Patient cardiac catheterization film has been reviewed and it showed a focal lesion in the mid LAD which is stented rest of his coronary angiography showed no significant atherosclerosis and LV systolic function is preserved by low ventriculogram. 5. Underlying etiology of his syncopal episode could be secondary to sick sinus syndrome 6. We will consider loop recorder implant HPI Consult Data Date of Consult: 01/05/21 HPI Narrative Reason for Consultation: Syncopal episode/A. fib with a slow ventricular rate HPI Narrative: RENATO NOONAN, is a 70 M who presents [facility] Medical History Afib Anxiety Arthritis Atherosclerotic heart disease of [place] coronary artery without angina pectoris Back problem Bipolar disorder Cataracts, bilateral Depression Diabetes mellitus, type II GI problem Headache Heart disease High cholesterol HTN (hypertension) Hyperlipidemia Hypertension Kidney disease Neuropathy Osteoarthritis Recurrent UTI Seasonal allergies STEMI (ST elevation myocardial infarction) (11/19/17) Traumatic brain injury Home Medications ferrous sulfate 325 mg PO DAILY 04/09/16 [History Last Taken 12/29/18] multivitamin 1 tab PO DAILY 09/07/16 [History Last Taken 12/29/18] aspirin 81 mg tablet,delayed release 81 mg PO QDAY 02/27/17 [History Last Taken 01/05/21] nitroglycerin 0.4 mg sublingual tablet 0.4 mg SUBLINGUAL Q5M PRN 02/27/17 [History Last Taken 12/29/18] amlodipine 10 mg tablet 10 mg PO DAILY 02/03/19 [History Last Taken Unknown] cholecalciferol (vitamin D3) 25 mcg (1,000 unit) capsule 1,000 unit PO DAILY 02/03/19 [History Last Taken Unknown] carvedilol 6.25 mg PO BID 03/25/20 [History Last Taken Unknown] fenofibrate nanocrystallized 145 mg tablet 200 mg PO DAILY tab 09/08/20 [Histor y Last Taken Unknown] insulin glargine 100 unit/mL (3 mL) subcutaneous pen 32 unit SUBCUT DAILY ml 09/08/20 [History Last Taken Unknown] levothyroxine 112 mcg PO DAILY 09/23/20 [History Last Taken Unknown] ticagrelor [Brilinta] 90 mg PO BID 09/23/20 [History Last Taken Unknown] diclofenac sodium 1 ea TOPICAL DAILY 01/05/21 [History Last Taken Unknown] duloxetine 60 mg PO DAILY 01/05/21 [History Last Taken Unknown] fiber 1 cap PO DAILY 01/05/21 [History Last Taken Unknown] fluticasone propionate 1 spray INTRANASAL DAILY 01/05/21 [History Last Taken Unknown] gabapentin 600 mg PO BID 01/05/21 [History Last Taken Unknown] insulin aspart U-100 [Novolog U-100 Insulin aspart] See Rx Instructions .ROUTE .COMPLEX 01/05/21 [History Last Taken Unknown] lorazepam 0.5 mg PO BID 01/05/21 [History Last Taken Unknown] oxcarbazepine [Trileptal] 300 mg PO QHS 01/05/21 [History Last Taken Unknown] oxybutynin chloride 5 mg PO TID 01/05/21 [History Last Taken Unknown] paliperidone palmitate [Invega Sustenna] 234 mg IM Q28D 01/05/21 [History Last Taken Unknown] trazodone 50 mg PO QHS 01/05/21 [History Last Taken Unknown] Allergy/AdvReac Type Severity Reaction Status Date / Time atorvastatin [From Lipitor] Allergy Unknown Verified 01/05/21 13:50 Penicillins Allergy Unknown Verified 01/05/21 13:50 lisinopril AdvReac Unknown unknown Verified 01/05/21 13:50 codeine AdvReac Upset Verified 01/05/21 13:50 Stomach doxycycline AdvReac Other Verified 01/05/21 13:50 nickel AdvReac Rash Verified 01/05/21 13:50 LYCOPEEN AdvReac Other Uncoded 01/05/21 13:50 Family History Father Arthritis Bleeding disorder Heart disease Hypertension Mother Hypertension Surgical History Stented coronary artery (11/19/17) Social History Smoking Status: Never smoker alcohol intake: never substance use type: does not use caffeine: Yes ROS ROS Narrative Pertinent review of 14 point system unremarkable apart from current presentation of syncopal episode No symptoms of chest pain Physical Exam Narrative Patient seen and examined at bedside Had a history of anxiety However he is alert and orientated The rn cardiac showed underlying atrial fibrillation with controlled ventricular rate Review of the cardiac telemetry showed long pause with artifact Patient has been stable hemodynamically. Cardiovascular examination; S1-S2 is regular there is no murmur no systolic or diastolic murmur No pericardial rub and no gallop rhythm Chest examination; clear to auscultation bilateral Lamination abdomen; soft not distended Examination lower extremity no clubbing no cyanosis no lower extremity edema Central nervous system exam; no focal neurological deficit. Objective Data Vital Signs: Vital Signs Temp Pulse Resp BP Pulse Ox 97.3 F L 65 16 134/77 H 99 01/05/21 17:34 01/05/21 17:42 01/05/21 17:34 01/05/21 17:34 01/05/21 17:34 Oxygen Delivery Method Room Air Weight: 190 lb 4.143 oz Body Mass Index (BMI) 26.5 Intake & Output: Intake and Output for Last 24 Hours 01/03/21 01/04/21 01/05/21 23:59 23:59 23:59 Intake Total 377.5 / 377.5 Balance 377.5 / 377.5 Lab / Micro Data Result Diagrams: 01/05/21 13:50 01/05/21 13:50 Labs: Laboratory Results - last 24 hr 01/05/21 13:50: WBC 10.1, RBC 3.96 L, Hgb 11.9 L, Hct 36.2 L, MCV 91.4, MCH 30.1, MCHC 32.9, RDW Std Deviation 45.2 H, RDW Coeff of Shashank 13.3, Plt Count 269, MPV 10.7, Immature Gran % (Auto) 0.400, Neut % (Auto) 83.7 H, Lymph % (Auto) 6.2 L, [place] % (Auto) 6.8, Eos % (Auto) 2.7, Baso % (Auto) 0.2, Absolute Neuts (auto) 8.5 H, Absolute Lymphs (auto) 0.63 L, Nucleated RBC % 0 01/05/21 13:50: Sodium 135 L, Potassium 4.7, Chloride 101, Carbon Dioxide 28.0, Anion Gap 6, BUN 45 H, Creatinine 3.36 H, Estim Creat Clear Calc 19.87, Est GFR (MDRD) Af Amer 23 L, Est GFR (MDRD) Non-Af 19 L, BUN/Creatinine Ratio 13.4, Glucose 272 H, Calcium 9.9, Troponin I High Sens 7 01/05/21 15:06: Urine Color Yellow, Urine Clarity Clear, Urine pH 7.0, Ur Specific [place] 1.010, Urine Protein 30 H, Urine Glucose (UA) 250 H, Urine Ke tones Negative, Urine Occult Blood Negative, Urine Nitrite Negative, Urine Bilirubin Negative, Urine Urobilinogen Normal, Ur Leukocyte Esterase Negative, Urine RBC 0 SEEN, Urine WBC 0 SEEN, Ur Squamous Epith Cells 0 SEEN, Urine Bacteria 0 SEEN, Urine Mucus 0 SEEN Rhythm Strip Rhythm Strip: A-fib Ectopy: None Cardiology Labs/Tests 01/05/21 13:50: WBC 10.1, RBC 3.96 L, Hgb 11.9 L, Hct 36.2 L, MCV 91.4, MCH 30.1, MCHC 32.9, Plt Count 269, MPV 10.7, Immature Gran % (Auto) 0.400, Neut % (Auto) 83.7 H, Lymph % (Auto) 6.2 L, [place] % (Auto) 6.8, Eos % (Auto) 2.7, Baso % (Auto) 0.2, Absolute Neuts (auto) 8.5 H, Nucleated RBC % 0 01/05/21 13:50: Sodium 135 L, Potassium 4.7, Chloride 101, Carbon Dioxide 28.0, Anion Gap 6, BUN 45 H, Creatinine 3.36 H, Est GFR (MDRD) Af Amer 23 L, Est GFR (MDRD) Non-Af 19 L, BUN/Creatinine Ratio 13.4, Glucose 272 H, Calcium 9.9 01/05/21 15:06: Urine Color Yellow, Urine Clarity Clear, Urine pH 7.0, Ur Sp ecific [place] 1.010, Urine Protein 30 H, Urine Glucose (UA) 250 H, Urine Ketones Negative, Urine Occult Blood Negative, Urine Nitrite Negative, Urine Bilirubin Negative, Urine Urobilinogen Normal, Ur Leukocyte Esterase Negative, Urine RBC 0 SEEN, Urine WBC 0 SEEN Rhythm: A. fib with long pause EKG: Atrial fibrillation with controlled ventricular rate Radiography Diagnostic Testing: Radiology Impression Brain CT 01/05/21 14:10 IMPRESSION: No acute intracranial abnormality. There has been no change from the reference examination. Individualized dose optimization techniques were used for this CT. at 1517 Reported and signed by: Claude Fuentes MD Electronically Signed: Claude Fuentes MD at 15:16 EDT Tel , Service support , Cervical Spine CT 01/05/21 14:10 IMPRESSION: 1. No acute osseous abnormalities. There is been no significant change from the reference examination. 2. Multilevel degenerative change with disc space narrowing and bony neural foraminal narrowing. This is unchanged from the reference exam. Individualized dose optimization techniques were used for this CT. at 1520 Reported and signed by: Claude Fuentes MD Electronically Signed: Claude Fuentes MD at 15:18 EDT Tel , Service support , Lumbar Spine X-Ray 01/05/21 14:10 IMPRESSION: No fracture or dislocation in the lumbar spine. Advanced degenerative changes. Constipation. Electronically Signed: Johny White MD at 15:34 EDT Tel , Service support , Thoracic Spine X-Ray 01/05/21 14:10 IMPRESSION: No fracture or dislocation in the thoracic spine. Moderate degenerative Electronically Signed: Johny White MD at 15:33 EDT Tel , Service support , Chest X-Ray 01/05/21 14:35 IMPRESSION: No acute thoracic pathology. Electronically Signed: Johny White MD at 15:32 EDT Tel , Service support ,
--- NOTE | 2021-01-05 21:37 | EKG12_ITS ---
Test Reason : RHYTHM CHANGE Blood Pressure : / mmHG Vent. Rate : 081 BPM Atrial Rate : 081 BPM P-R Int : 208 ms QRS Dur : 096 ms QT Int : 392 ms P-R-T Axes : 049 -35 057 degrees QTc Int : 455 ms Normal sinus rhythm with sinus arrhythmia Left axis deviation Low voltage QRS Poor R wave progression Septal AL, age undetermined, cannot be excluded Abnormal ECG Confirmed by TU JASON, NERY ([id number]), digital editor VENTURA FINK ([id number]) on 01/17/2021 9:45:11 AM Referred By: EMI Confirmed By:NREY MAE MD
[2021-01-05] MEDS: traZODone 50 MG Tablet PO (22:12)
[2021-01-05] MEDS: Insulin Lispro 100 UNIT/ML INSULN.PEN SC (22:12)
[2021-01-05] MEDS: GABAPENTIN 100 MG CAPSULE PO (22:12)
[2021-01-05] MEDS: TICAGRELOR 90 MG TABLET PO (23:03)
[2021-01-05] MEDS: OXcarbazepine 300 MG Tablet PO (23:03)
[2021-01-05] MEDS: Oxybutynin 5 MG Tablet PO (23:03)
[2021-01-06] VITALS (27 sets, daily range): BP systolic 111–151; BP diastolic 61–87; PULSE 40–83; RESP 14–20; TEMP 36–36.7; O2SAT 95–99
[2021-01-06 00:51] LABS: Bedside Glucose 216 mg/dL (70-110)
[2021-01-06] MEDS: 0.9% Normal Saline 1,000 ML 150 ML IV (04:07)
[2021-01-06 04:22] LABS: Absolute Lymphocyte Count 0.87 X10^3/uL (0.83-4.51); Absolute Neutrophil Count 4.7 X10^3/uL (2.0-7.7); Basophil# 0.02 X10^3/uL; Basophil% 0.3 % (0-1); Eosinophil# 0.27 X10^3/uL; Eosinophils% 4.1 % (0-5); Hematocrit 33.8 % (40-54); Lymphocyte # 0.87 X10^3/ul (0.83-4.51); Lymphocyte % 13.3 % (19-41); Mean Corp Hgb Conc 32.5 g/dL (32-36); Mean Corpuscular Volume 92.1 fL (80-94); Mean Platelet Vol. 10.3 fl (6.2-12.0); Monocyte# 0.63 X10^3/uL; Monocyte% 9.6 % (0-10); NRBC Flagged by Analyzer 0 % (0-5); Neutrophil # 4.73 X10^3/uL (2.7-7.7); Neutrophil % 72.1 % (47-70); Platelet Count 250 K/mm3 (150-450); RBC Distribution Width CV 13.2 % (11.6-14.6); RBC Distribution Width SD 45.1 fl (35.1-43.9); Red Blood Count 3.67 M/mm3 (4.6-6.2); White Blood Count 6.6 K/mm3 (4.4-11.0)
[2021-01-06 04:35] LABS: Anion Gap 5 (5-15); BUN 38 mg/dL (7-18); BUN/Creat Ratio 14.4 RATIO (10-20); Calcium,Total 9.3 mg/dL (8.5-10.1); Chloride 107 mmol/L (98-107); Creatinine, Serum 2.63 mg/dL (0.70-1.30); EST Glomerular Filtration Rate 26 mL/min (>60); Est Glom Filt Rate - Afr Amer 31 mL/min (>60); Estimated Creatinine Clearance 27.04 ml/min; Glucose 126 mg/dL (74-106); Potassium 3.7 mmol/L (3.5-5.1); Sodium Level 139 mmol/L (136-145)
[2021-01-06] MEDS: Levothyroxine 112 MCG Tablet PO (06:00)
[2021-01-06] MEDS: Oxybutynin 5 MG Tablet PO ×3 (06:00→21:04)
[2021-01-06 08:21] LABS: Bedside Glucose 131 mg/dL (70-110)
--- NOTE | 2021-01-06 09:03 | PCM.PN.HOSP ---
Subjective Subjective Transcutaneously paced and states that he feels better than he has in a long time. No issues overnight, but did begin transcutaneously pacing about 2 AM when he had another bradycardic episode. Cardiology is on board Objective Data Objective Data Vital Signs: Vital Signs Temp Pulse Resp BP Pulse Ox 98 F 67 18 139/74 H 97 01/06/21 08:00 01/06/21 08:00 01/06/21 08:00 01/06/21 08:00 01/06/21 08:00 Oxygen Delivery Method Room Air Weight: 192 lb 0.362 oz Body Mass Index (BMI) 26.5 Intake & Output: Intake and Output for Last 24 Hours 01/05/21 01/06/21 01/07/21 03:59 03:59 03:59 Intake Total 727.5 / 727.5 970 / 970 Output Total 1250 / 1250 625 / 625 Balance -522.5 / -522.5 345 / 345 Lab / Micro Data Result Diagrams: 01/06/21 04:15 01/06/21 04:15 Labs: Laboratory Results - last 24 hr 01/05/21 13:50: WBC 10.1, RBC 3.96 L, Hgb 11.9 L, Hct 36.2 L, MCV 91.4, MCH 30.1, MCHC 32.9, RDW Std Deviation 45.2 H, RDW Coeff of Shashank 13.3, Plt Count 269, MPV 10.7, Immature Gran % (Auto) 0.400, Neut % (Auto) 83.7 H, Lymph % (Auto) 6.2 L, [place] % (Auto) 6.8, Eos % (Auto) 2.7, Baso % (Auto) 0.2, Absolute Neuts (auto) 8.5 H, Absolute Lymphs (auto) 0.63 L, Nucleated RBC % 0 01/05/21 13:50: Sodium 135 L, Potassium 4.7, Chloride 101, Carbon Dioxide 28.0, Anion Gap 6, BUN 45 H, Creatinine 3.36 H, Estim Creat Clear Calc 19.87, Est GFR (MDRD) Af Amer 23 L, Est GFR (MDRD) Non-Af 19 L, BUN/Creatinine Ratio 13.4, Glucose 272 H, Calcium 9.9, Troponin I High Sens 7 01/05/21 15:06: Urine Color Yellow, Urine Clarity Clear, Urine pH 7.0, Ur Specific [place] 1.010, Urine Protein 30 H, Urine Glucose (UA) 250 H, Urine Ketones Negative, Urine Occult Blood Negative, Urine Nitrite Negative, Urine Bilirubin Negative, Urine Urobilinogen Normal, Ur Leukocyte Esterase Negative, Urine RBC 0 SEEN, Urine WBC 0 SEEN, Ur Squamous Epith Cells 0 SEEN, Urine Bacteria 0 SEEN, Urine Mucus 0 SEEN 01/05/21 21:46: POC Glucose 216 H 01/06/21 04:15: Sodium 139, Potassium 3.7, Chloride 107, Carbon Dioxide 27.0, Anion Gap 5, BUN 38 H, Creatinine 2.63 H, Estim Creat Clear Calc 27.04, Est GFR (MDRD) Af Amer 31 L, Est GFR (MDRD) Non-Af 26 L, BUN/Creatinine Ratio 14.4, Glucose 126 H, Calcium 9.3 01/06/21 04:15: WBC 6.6, RBC 3.67 L, Hgb 11.0 L, Hct 33.8 L, MCV 92.1, MCH 30.0, MCHC 32.5, RDW Std Deviation 45.1 H, RDW Coeff of Shashank 13.2, Plt Count 250, MPV 10.3, Immature Gran % (Auto) 0.600, Neut % (Auto) 72.1 H, Lymph % (Auto) 13.3 L, [place] % (Auto) 9.6, Eos % (Auto) 4.1, Baso % (Auto) 0.3, Absolute Neuts (auto) 4.7, Absolute Lymphs (auto) 0.87, Nucleated RBC % 0 01/06/21 08:17: POC Glucose 131 H Radiography Diagnostic Testing: Radiology Impression Brain CT 01/05/21 14:10 IMPRESSION: No acute intracranial abnormality. There has been no change from the reference examination. Individualized dose optimization techniques were used for this CT. at 1517 Reported and signed by: Claude Fuentes MD Electronically Signed: Claude Fuentes MD at 15:16 EDT Tel , Service support , Cervical Spine CT 01/05/21 14:10 IMPRESSION: 1. No acute osseous abnormalities. There is been no significant change from the reference examination. 2. Multilevel degenerative change with disc space narrowing and bony neural foraminal narrowing. This is unchanged from the reference exam. Individualized dose optimization techniques were used for this CT. at 1520 Reported and signed by: Claude Fuentes MD Electronically Signed: Claude Fuentes MD at 15:18 EDT Tel , Service support , Lumbar Spine X-Ray 01/05/21 14:10 IMPRESSION: No fracture or dislocation in the lumbar spine. Advanced degenerative changes. Constipation. Electronically Signed: Johny White MD at 15:34 EDT Tel , Service support , Thoracic Spine X-Ray 01/05/21 14:10 IMPRESSION: No fracture or dislocation in the thoracic spine. Moderate degenerative Electronically Signed: Johny White MD at 15:33 EDT Tel , Service support , Chest X-Ray 01/05/21 14:35 IMPRESSION: No acute thoracic pathology. Electronically Signed: Johny White MD at 15:32 EDT Tel , Service support , Rhythm Strip Rhythm Strip: A-fib Ectopy: None Physical Exam Const alert and no apparent distress General Appearance: cooperative HEENT normocephalic and moist oral mucous membranes Eyes PERRL, EOMs intact bilaterally and conjunctivae normal Neck supple and no JVD Resp normal respiratory effort, no retractions, no use of accessory muscles and clear to auscultation bilaterally Auscultation: Negative for crackles, rales, rhonchi or wheezes Cardio regular rate, regular rhythm, S1 normal heart sound, S2 normal heart sound and no murmurs GI soft to palpation, non-tender and non-distended; Negative for hepatosplenomegaly Extremity no clubbing, cyanosis or edema Skin no rashes or lesions noted Neuro no focal motor deficits and no sensory deficits noted Psych affect normal Appearance: appropriate Assessment & Plan Assessment/Plan (1) Syncope: QUALIFIERS: Syncope type: vasovagal syncope Qualified Code(s): R55 - Syncope and collapse (2) RIVAS (acute kidney injury): PLAN: 1. Syncope possibly secondary to sick sinus syndrome/A. fib/HTN/HLD/RIVAS -Continue with IV fluids, monitor creatinine -Appreciate cardiology assistance, may need a loop recorder implanted in the meantime continue transcutaneous pacing -Continue with Norvasc, hold Cardizem in light of his possible sick sinus syndrome given that he had a 13-second pause last night -Continue with fenofibrate, Brilinta, aspirin 2. DM2 -Continue with home insulin -Accu-Cheks AC at bedtime with sliding scale insulin 3. Hypothyroidism -Stable -Continue Synthroid 4. Schizoaffective disorder -Stable -Continue with his home medications -Follow-up with psychiatry as an outpatient DVT: Ambulation Charges/Coding Visit Charges OBSV E&M: 60366 Subsequent observation care L2
[2021-01-06] MEDS: TICAGRELOR 90 MG TABLET PO (10:07)
[2021-01-06] MEDS: Multivitamins,Therapeutic Tablet 1 TABLET PO (10:07)
[2021-01-06] MEDS: Aspirin E.C. 81 MG Tablet PO (10:07)
[2021-01-06] MEDS: Cholecalciferol (VIT D3) 25 MCG TABLET (1,000 UNITS) PO (10:07)
[2021-01-06] MEDS: Ferrous Sulfate 325 MG Tablet PO (10:07)
[2021-01-06] MEDS: Fenofibrate 145 MG Tablet PO (10:07)
[2021-01-06] MEDS: Fluticasone 0.05% 1 SPRAY NASAL.SRY NASAL (10:08)
[2021-01-06] MEDS: GABAPENTIN 100 MG CAPSULE PO ×2 (10:10→21:09)
[2021-01-06] MEDS: amLODIPine 10 MG Tablet PO (10:11)
--- NOTE | 2021-01-06 10:53 | CM.ED ---
JACOB Note JACOB called John at [facility]. Patient can return when he is medically ready. JACOB asked John about a precert and she said not a problem and JACOB inquired if we need to do a precert again for readmission and John said we have that all the time that people go out and come back from the hospital. John asked that the orders be faxed prior to him returning to [facility]. John said that the fax number for his unit is the [facility] [phone]. JACOB will update CM RN Plan: Return to [facility] Kacy JOSE
[2021-01-06] MEDS: 0.9% Normal Saline 1,000 ML 100 ML IV ×2 (11:30→21:57)
[2021-01-06] MEDS: DULoxetine Hcl 60 MG Capsule PO (12:29)
[2021-01-06 12:30] LABS: Bedside Glucose 233 mg/dL (70-110)
[2021-01-06] MEDS: Insulin Lispro 100 UNIT/ML INSULN.PEN SC ×3 (12:30→21:09)
--- NOTE | 2021-01-06 15:12 | PN.CARD_ITS ---
Subjective Subjective Seen and evaluated today along with the nursing staff in the intensive care unit Sitting out in a chair comfortable and stable hemodynamically no further episode of syncope or dizziness. Objective Data Vital Signs: Vital Signs Temp Pulse Resp BP Pulse Ox 98 F 65 18 148/72 H 98 01/06/21 08:00 01/06/21 11:56 01/06/21 11:00 01/06/21 11:00 01/06/21 11:00 Oxygen Delivery Method Room Air Weight: 192 lb 0.362 oz Body Mass Index (BMI) 26.5 Intake & Output: Intake and Output for Last 24 Hours 01/04/21 01/05/21 01/06/21 23:59 23:59 23:59 Intake Total 377.5 / 377.5 2800 / 2800 Output Total 850 / 850 1775 / 1775 Balance -472.5 / -472.5 1025 / 1025 Lab / Micro Data Result Diagrams: 01/06/21 04:15 01/06/21 04:15 Labs: Laboratory Results - last 24 hr 01/05/21 15:06: Urine Color Yellow, Urine Clarity Clear, Urine pH 7.0, Ur Specific [place] 1.010, Urine Protein 30 H, Urine Glucose (UA) 250 H, Urine Ketones Negative, Urine Occult Blood Negative, Urine Nitrite Negative, Urine Bilirubin Negative, Urine Urobilinogen Normal, Ur Leukocyte Esterase Negative, Urine RBC 0 SEEN, Urine WBC 0 SEEN, Ur Squamous Epith Cells 0 SEEN, Urine Bacteria 0 SEEN, Urine Mucus 0 SEEN 01/05/21 21:46: POC Glucose 216 H 01/06/21 04:15: Sodium 139, Potassium 3.7, Chloride 107, Carbon Dioxide 27.0, Anion Gap 5, BUN 38 H, Creatinine 2.63 H, Estim Creat Clear Calc 27.04, Est GFR (MDRD) Af Amer 31 L, Est GFR (MDRD) Non-Af 26 L, BUN/Creatinine Ratio 14.4, Glucose 126 H, Calcium 9.3 01/06/21 04:15: WBC 6.6, RBC 3.67 L, Hgb 11.0 L, Hct 33.8 L, MCV 92.1, MCH 30.0, MCHC 32.5, RDW Std Deviation 45.1 H, RDW Coeff of Shashank 13.2, Plt Count 250, MPV 10.3, Immature Gran % (Auto) 0.600, Neut % (Auto) 72.1 H, Lymph % (Auto) 13.3 L, [place] % (Auto) 9.6, Eos % (Auto) 4.1, Baso % (Auto) 0.3, Absolute Neuts (auto) 4.7, Absolute Lymphs (auto) 0.87, Nucleated RBC % 0 01/06/21 08:17: POC Glucose 131 H 01/06/21 12:26: POC Glucose 233 H Rhythm Strip Rhythm Strip: A-fib Ectopy: None Cardiology Labs/Tests 01/05/21 15:06: Urine Color Yellow, Urine Clarity Clear, Urine pH 7.0, Ur Specific [place] 1.010, Urine Protein 30 H, Urine Glucose (UA) 250 H, Urine Ketones Negative, Urine Occult Blood Negative, Urine Nitrite Negative, Urine Bilirubin Negative, Urine Urobilinogen Normal, Ur Leukocyte Esterase Negative, Urine RBC 0 SEEN, Urine WBC 0 SEEN 01/06/21 04:15: Sodium 139, Potassium 3.7, Chloride 107, Carbon Dioxide 27.0, Anion Gap 5, BUN 38 H, Creatinine 2.63 H, Est GFR (MDRD) Af Amer 31 L, Est GFR (MDRD) Non-Af 26 L, BUN/Creatinine Ratio 14.4, Glucose 126 H, Calcium 9.3 01/06/21 04:15: WBC 6.6, RBC 3.67 L, Hgb 11.0 L, Hct 33.8 L, MCV 92.1, MCH 30.0, MCHC 32.5, Plt Count 250, MPV 10.3, Immature Gran % (Auto) 0.600, Neut % (Auto) 72.1 H, Lymph % (Auto) 13.3 L, [place] % (Auto) 9.6, Eos % (Auto) 4.1, Baso % (Au to) 0.3, Absolute Neuts (auto) 4.7, Nucleated RBC % 0 Rhythm: A. fib with slow ventricular rate converted to normal sinus rhythm. EKG: Normal sinus rhythm Radiography Diagnostic Testing: Radiology Impression Brain CT 01/05/21 14:10 IMPRESSION: No acute intracranial abnormality. There has been no change from the reference examination. Individualized dose optimization techniques were used for this CT. at 1517 Reported and signed by: Claude Fuentes MD Electronically Signed: Claude Fuentes MD at 15:16 EDT Tel , Service support , Cervical Spine CT 01/05/21 14:10 IMPRESSION: 1. No acute osseous abnormalities. There is been no significant change from the reference examination. 2. Multilevel degenerative change with disc space narrowing and bony neural foraminal narrowing. This is unchanged from the reference exam. Individualized dose optimization techniques were used for this CT. at 1520 Reported and signed by: Claude Fuentes MD Electronically Signed: Claude Fuentes MD at 15:18 EDT Tel , Service support , Lumbar Spine X-Ray 01/05/21 14:10 IMPRESSION: No fracture or dislocation in the lumbar spine. Advanced degenerative changes. Constipation. Electronically Signed: Johny White MD at 15:34 EDT Tel , Service support , Thoracic Spine X-Ray 01/05/21 14:10 IMPRESSION: No fracture or dislocation in the thoracic spine. Moderate degenerative Electronically Signed: Johny White MD at 15:33 EDT Tel , Service support , Chest X-Ray 01/05/21 14:35 IMPRESSION: No acute thoracic pathology. Electronically Signed: Johny White MD at 15:32 EDT Tel , Service support , Physical Exam Narrative Patient comfortable alert and orientated x3 Cardiovascular examination; S1-S2 regular no murmur no systolic or diastolic murmur no pericardial rub or gallop rhythm Chest examination; clear to auscultation bilateral Examination abdomen soft not distended Examination lower extremity no lower extremity edema Risk Stratification Risk Stratification Applicable: No Assessment & Plan Assessment/Plan (1) Acute kidney injury: (2) Atherosclerotic heart disease of [place] coronary artery without angina pectoris: QUALIFIERS: [place] vs. transplanted heart: [place] heart Qualified Code(s): I25.10 - Atherosclerotic heart disease of [place] coronary artery without angina pectoris (3) Stented coronary artery: (4) STEMI (ST elevation myocardial infarction): QUALIFIERS: Involved coronary artery: right coronary artery Qualified Code(s): I21.11 - ST elevation (STEMI) myocardial infarction involving right coronary artery (5) Diabetes mellitus, type II: QUALIFIERS: Diabetes mellitus complication status: with unspecified complications Diabetes mellitus filler leaf cutter long insulin use: with filler leaf cutter long use Qualified Code(s): E11.8 - Type 2 diabetes mellitus with unspecified complications; Z79.4 - terminal block assembler (current) use of insulin (6) Atrial fibrillation: QUALIFIERS: Atrial fibrillation type: paroxysmal Qualified Code(s): I48.0 - Paroxysmal atrial fibrillation (7) RIVAS (acute kidney injury): (8) Traumatic brain injury: (9) Schizoaffective disorder: (10) Syncope: QUALIFIERS: Syncope type: vasovagal syncope Qualified Code(s): R55 - Syncope and collapse PLAN: 70-year-old patient who was admitted with episode of syncope. With history of CAD with anterior NE 2018, patient has PCI and stent of mid LAD with a drug-eluting stent, [facility] by Dr. Nguyen He had a paroxysmal atrial fibrillation, admitted with episode of syncope Evidently he was in the progressive care unit and developed long pause and was unresponsive. CODE BLUE was called however patient regained consciousness On repeat EKG showed underlying atrial fibrillation with controlled ventricular rate We will transfer the patient to intensive care unit to monitor in ICU, he does not require transcutaneous or transvenous pacer and has been stable hemodynamically Subsequently patient converted to normal sinus rhythm and has been stable hemodynamically Cardiac plan and recommendation 1. Patient had a history of paroxysmal A. fib with underlying sick sinus syndrome and recurrent episode of syncope. LV systolic function is preserved with no significant valvular abnormality. Schedule for permanent pacemaker/DDDR by Dr. Gonzáles 2. He been on dual antiplatelet with Brilinta and aspirin Brilinta is on hold. 3. I review all his current medication beta-summer carvedilol discontinued. 4. Patient has acute on chronic renal insufficiency and currently has been on IV fluid. Serum creatinine improving to 2.6 which is his baseline.
[2021-01-06 16:50] LABS: Bedside Glucose 220 mg/dL (70-110)
--- NOTE | 2021-01-06 20:15 | NURSING ---
Addendum entered by Ariadna Davis 01/06/21 20:27: pacer is transcutaneous Original Note: pt resting in bed with head under covers. Monitor sinus rate 71 with transvenous pacer set at rate of 60 and MA10.
[2021-01-06] MEDS: traZODone 50 MG Tablet PO (21:03)
[2021-01-06] MEDS: OXcarbazepine 300 MG Tablet PO (21:05)
[2021-01-06 21:06] LABS: Bedside Glucose 218 mg/dL (70-110)
--- NOTE | 2021-01-06 22:39 | NURSING ---
2114 pt requested to go to bed, was incontinent of urine. pt cleaned up, linens changed, HS meds given. Transcutaneous pacer in place, currently heart rate > 60. patient requested to sleep with head under covers.
[2021-01-07] VITALS (27 sets, daily range): BP systolic 92–159; BP diastolic 51–99; PULSE 60–120; RESP 14–32; TEMP 36.4–36.9; O2SAT 88–98
--- NOTE | 2021-01-07 02:05 | NURSING ---
transvenous pacemaker firing off and on since about 129. pt tolerating well, is sleeping through pacemaker firing
[2021-01-07 03:04] LABS: Absolute Neutrophil Count 4.6 X10^3/uL (2.0-7.7); Basophil# 0.02 X10^3/uL; Basophil% 0.3 % (0-1); Eosinophil# 0.24 X10^3/uL; Eosinophils% 3.7 % (0-5); Hematocrit 30.9 % (40-54); Hemoglobin 10.3 g/dL (13.0-16.5); Mean Corp Hgb Conc 33.3 g/dL (32-36); Mean Corpuscular Volume 90.1 fL (80-94); Mean Platelet Vol. 10.2 fl (6.2-12.0); Monocyte# 0.69 X10^3/uL; Monocyte% 10.7 % (0-10); NRBC Flagged by Analyzer 0 % (0-5); Neutrophil # 4.56 X10^3/uL (2.7-7.7); Neutrophil % 70.8 % (47-70); Platelet Count 241 K/mm3 (150-450); RBC Distribution Width CV 13.1 % (11.6-14.6); RBC Distribution Width SD 43.4 fl (35.1-43.9); Red Blood Count 3.43 M/mm3 (4.6-6.2); White Blood Count 6.4 K/mm3 (4.4-11.0)
[2021-01-07 03:45] LABS: Anion Gap 5 (5-15); BUN 33 mg/dL (7-18); BUN/Creat Ratio 14.2 RATIO (10-20); Calcium,Total 8.9 mg/dL (8.5-10.1); Chloride 112 mmol/L (98-107); Creatinine, Serum 2.33 mg/dL (0.70-1.30); EST Glomerular Filtration Rate 29 mL/min (>60); Est Glom Filt Rate - Afr Amer 36 mL/min (>60); Estimated Creatinine Clearance 30.52 ml/min; Glucose 132 mg/dL (74-106); Sodium Level 141 mmol/L (136-145)
[2021-01-07] MEDS: Oxybutynin 5 MG Tablet PO ×3 (06:46→21:37)
[2021-01-07] MEDS: Levothyroxine 112 MCG Tablet PO (06:46)
[2021-01-07] MEDS: 0.9% Normal Saline 1,000 ML 100 ML IV ×2 (07:56→16:16)
[2021-01-07] MEDS: LORazepam 0.5 MG Tablet PO (08:38)
[2021-01-07] MEDS: Aspirin E.C. 81 MG Tablet PO (08:40)
[2021-01-07] MEDS: Cholecalciferol (VIT D3) 25 MCG TABLET (1,000 UNITS) PO (08:40)
[2021-01-07] MEDS: Multivitamins,Therapeutic Tablet 1 TABLET PO (08:40)
[2021-01-07] MEDS: Fenofibrate 145 MG Tablet PO (08:41)
[2021-01-07] MEDS: amLODIPine 10 MG Tablet PO (08:42)
[2021-01-07] MEDS: DULoxetine Hcl 60 MG Capsule PO (08:42)
[2021-01-07] MEDS: GABAPENTIN 100 MG CAPSULE PO ×2 (08:43→21:39)
[2021-01-07] MEDS: Ferrous Sulfate 325 MG Tablet PO (08:44)
--- NOTE | 2021-01-07 09:10 | PCM.PN.HOSP ---
Subjective Subjective Doing well, no issues overnight. Remains paced, plan for heart cath in the morning Objective Data Objective Data Vital Signs: Vital Signs Temp Pulse Resp BP Pulse Ox 97.9 F 119 H 32 H 92/51 L 88 01/07/21 09:00 01/07/21 09:00 01/07/21 09:00 01/07/21 09:00 01/07/21 09:00 Oxygen Delivery Method Room Air Weight: 188 lb 7.924 oz Body Mass Index (BMI) 26.5 Intake & Output: Intake and Output for Last 24 Hours 01/06/21 01/07/21 01/08/21 03:59 03:59 03:59 Intake Total 727.5 / 727.5 3500 / 3500 1048.33 / 1048.33 Output Total 1250 / 1250 4175 / 4175 400 / 400 Balance -522.5 / -522.5 -675 / -675 648.33 / 648.33 Lab / Micro Data Result Diagrams: 01/07/21 02:50 01/07/21 02:50 Labs: Laboratory Results - last 24 hr 01/06/21 12:26: POC Glucose 233 H 01/06/21 16:47: POC Glucose 220 H 01/06/21 21:02: POC Glucose 218 H 01/07/21 02:50: WBC 6.4, RBC 3.43 L, Hgb 10.3 L, Hct 30.9 L, MCV 90.1, MCH 30.0, MCHC 33.3, RDW Std Deviation 43.4, RDW Coeff of Shashank 13.1, Plt Count 241, MPV 10.2, Immature Gran % (Auto) 0.500, Neut % (Auto) 70.8 H, Lymph % (Auto) 14.0 L, [place] % (Auto) 10.7 H, Eos % (Auto) 3.7, Baso % (Auto) 0.3, Absolute Neuts (auto) 4.6, Absolute Lymphs (auto) 0.90, Nucleated RBC % 0 01/07/21 02:50: Sodium 141, Potassium 4.0, Chloride 112 H, Carbon Dioxide 24.0, Anion Gap 5, BUN 33 H, Creatinine 2.33 H, Estim Creat Clear Calc 30.52, Est GFR (MDRD) Af Amer 36 L, Est GFR (MDRD) Non-Af 29 L, BUN/Creatinine Ratio 14.2, Glucose 132 H, Calcium 8.9 Rhythm Strip Rhythm Strip: A-fib Ectopy: None Physical Exam Const alert and no apparent distress General Appearance: cooperative HEENT normocephalic and moist oral mucous membranes Eyes PERRL, EOMs intact bilaterally and conjunctivae normal Neck supple and no JVD Resp normal respiratory effort, no retractions, no use of accessory muscles and clear to auscultation bilaterally Auscultation: Negative for crackles, rales, rhonchi or wheezes Cardio regular rate, regular rhythm, S1 normal heart sound, S2 normal heart sound and no murmurs GI soft to palpation, non-tender and non-distended; Negative for hepatosplenomegaly Extremity no clubbing, cyanosis or edema Skin no rashes or lesions noted Neuro no focal motor deficits and no sensory deficits noted Psych affect normal Appearance: appropriate Assessment & Plan Assessment/Plan (1) Syncope: QUALIFIERS: Syncope type: vasovagal syncope Qualified Code(s): R55 - Syncope and collapse (2) RIVAS (acute kidney injury): PLAN: 1. Syncope possibly secondary to sick sinus syndrome/A. fib/HTN/HLD/RIVAS on CKD 3B -Continue with IV fluids, monitor creatinine -Appreciate cardiology assistance, plan for permanent pacemaker on Friday in the meantime continue transcutaneous pacing -Continue with Norvasc, hold Coreg in light of his possible sick sinus syndrome given that he had a 13-second pause -Continue with fenofibrate, hold Brilinta and aspirin 2. DM2 -Continue with home insulin -Accu-Cheks AC at bedtime with sliding scale insulin 3. Hypothyroidism -Stable -Continue Synthroid 4. Schizoaffective disorder -Stable -Continue with his home medications -Follow-up with psychiatry as an outpatient DVT: Ambulation Charges/Coding Visit Charges Inpatient E&M: 78830 Subs Hosp L2
[2021-01-07] MEDS: Insulin Lispro 100 UNIT/ML INSULN.PEN SC ×2 (11:15→16:15)
[2021-01-07] MEDS: Fluticasone 0.05% 1 SPRAY NASAL.SRY NASAL (11:16)
[2021-01-07 11:21] LABS: Bedside Glucose 161 mg/dL (70-110)
[2021-01-07 16:20] LABS: Bedside Glucose 241 mg/dL (70-110)
[2021-01-07] MEDS: traZODone 50 MG Tablet PO (21:38)
[2021-01-07] MEDS: OXcarbazepine 300 MG Tablet PO (21:57)
[2021-01-07 22:35] LABS: Bedside Glucose 135 mg/dL (70-110)
[2021-01-08] VITALS (28 sets, daily range): BP systolic 126–171; BP diastolic 67–99; PULSE 64–94; RESP 14–30; TEMP 36–37.1; O2SAT 94–98; BMI 26.2
[2021-01-08] MEDS: 0.9% Normal Saline 1,000 ML 100 ML IV ×3 (02:16→20:06)
--- NOTE | 2021-01-08 07:16 | PCM.PN.HOSP ---
Subjective Subjective Patient is a 70-year-old gentleman admitted following a syncopal episode. Was found to have significant sinus pauses while being monitored in the progressive care unit. Was started on transcutaneous pacing and transferred to the intensive care unit consultation placed to cardiology Objective Data Objective Data Vital Signs: Vital Signs Temp Pulse Resp BP Pulse Ox 98.8 F 87 18 141/93 H 97 01/08/21 00:00 01/08/21 07:00 01/08/21 07:00 01/08/21 07:00 01/08/21 07:00 Oxygen Delivery Method Room Air Weight: 85.4 kg Body Mass Index (BMI) 26.5 Intake & Output: Intake and Output for Last 24 Hours 01/06/21 01/07/21 01/08/21 23:59 23:59 23:59 Intake Total 3800 / 3850 2871.66 / 2871.66 1000 / 1000 Output Total 3975 / 4575 2250 / 2250 600 / 600 Balance -175 / -725 621.66 / 621.66 400 / 400 Lab / Micro Data Result Diagrams: 01/07/21 02:50 01/07/21 02:50 Labs: Laboratory Results - last 24 hr 01/07/21 11:14: POC Glucose 161 H 01/07/21 16:14: POC Glucose 241 H 01/07/21 21:46: POC Glucose 135 H Rhythm Strip Rhythm Strip: A-fib Ectopy: None Physical Exam Narrative GENERAL: cooperative HEENT: Atraumatic; EYES; Anicteric, Normal Conjunctiva NECK; supple, normal thyroid, RESPIRATORY: Diminished to auscultation CARDIOVASCULAR: Regular S1 S2, GI: soft, normoactive bowel sounds, : No Renal angle tenderness; EXTREMITIES: No edema, no clubbing, MUSCULOSKELETAL: no muscle waisting NEURO: Awake; no lateralizing signs. SKIN: No Rash PSYCH; Flat affect Assessment & Plan Assessment/Plan (1) Syncope: QUALIFIERS: Syncope type: vasovagal syncope Qualified Code(s): R55 - Syncope and collapse (2) RIVAS (acute kidney injury): PLAN: Patient is a 70-year-old gentleman admitted following a syncopal episode. Was found to have significant sinus pauses while being monitored in the progressive care unit. Was started on transcutaneous pacing and transferred to the intensive care unit consultation placed to cardiology 1. Sick sinus syndrome ?Consult placed to cardiology patient scheduled to undergo pacemaker placement on 01/08/2021 2. Paroxysmal A. fib ?Rate controlled beta-blockers held in view of above 3. Coronary artery disease ?With previous anterior wall [place] in 2007 subsequently underwent PCI with stent placement to mid LAD lesion with a LAURE 4. Hypertension - Blood pressure controlled, home medications continued with dose adjustment as needed 5. Dyslipidemia -Patient is on fenofibrate at home 6. Diabetes mellitus type 2 ?Patient is on long-acting insulin did continue in addition to Accu-Cheks before meals and at bedtime with sliding scale coverage 7. Hypothyroidism - Patient is on levothyroxine home dose continued 4. Schizoaffective disorder -Stable on Invega did continue 9. DVT prophylaxis ?Early ambulation encouraged Charges/Coding Visit Charges Inpatient E&M: 26688 [facility] Hosp L3
--- NOTE | 2021-01-08 09:14 | PCS.PANDOC ---
PANDEMIC DOCUMENTATION INITIATED: Date: 11/06/2020 Time: 190
[2021-01-08] MEDS: DULoxetine Hcl 60 MG Capsule PO (10:04)
[2021-01-08] MEDS: amLODIPine 10 MG Tablet PO (10:04)
[2021-01-08] MEDS: GABAPENTIN 100 MG CAPSULE PO (10:05)
[2021-01-08] MEDS: Fluticasone 0.05% 1 SPRAY NASAL.SRY NASAL (10:06)
[2021-01-08] MEDS: 0.9% Saline Lock 10 ML Syringe IV (11:18)
[2021-01-08 11:26] LABS: Bedside Glucose 139 mg/dL (70-110)
[2021-01-08 12:02] LABS: Anion Gap 5 (5-15); BUN 32 mg/dL (7-18); BUN/Creat Ratio 13.9 RATIO (10-20); Calcium,Total 9.2 mg/dL (8.5-10.1); Chloride 113 mmol/L (98-107); EST Glomerular Filtration Rate 30 mL/min (>60); Est Glom Filt Rate - Afr Amer 36 mL/min (>60); Estimated Creatinine Clearance 30.92 ml/min; Glucose 87 mg/dL (74-106); Potassium 4.1 mmol/L (3.5-5.1); Sodium Level 140 mmol/L (136-145)
--- NOTE | 2021-01-08 13:45 | CL.IE_ITS ---
Patient: RENATO NOONAN Study Date: 01/08/2021 Performing: Chago Gonzáles MD : 1950 Age: 70 Gender: male PROCEDURES PERFORMED [id number] PACER INSERT+DUAL LEADS INDICATIONS Atrial fibrillation and complete heart block PROCEDURE DETAILS The patient was brought to the Catheterization Lab in the postabsorptive nonsedated state. [facility] prior to the procedure. PPM ventricular lead was inserted / positioned to r ight ventricular. Access was achieved and a guidewire was advanced into the left subclavian vein. Inc ision was made to the left upper chest. A peel-away sheath was inserted into the left subclavian vein 9fr. PPM ventricular lead was inserted / positioned to right ventricular. The sheath was then remove d. PPM ventricular lead testing performed. PPM ventricular lead testing performed. A peel-away sheath was inserted into the left subclavian vein 7fr. PPM atrial lead was inserted / positioned to the rig ht atrial appendage. The sheath was then removed. PPM atrial lead testing performed. The Ventricular PM lead sutured in place with 2-0 Silk. The Atrial lead sutured in place with 2-0 Silk. Device pocket was irrigated with antibiotic-bacitracin. PPM generator was attached to the lead(s) and inserted into the pocket. Subcutaneous closure was completed with 3-0 Vicryl. Skin closure was comple jorge with 4-0 Vicryl. Steri-strips applied to left subclavicular incision. The patient tolerated the procedure well. Estimated Blood Loss: < 10 mls IMPLANTED / EX-PLANTED DEVICES IMPLANTED DEVICE(S): PPM Ventricular lead - Secretarial Teacher: CHNL, Model # 7842 , Serial # [id number] PPM Atrial lead - Secretarial Teacher: CHNL, Model # 7841 , Serial # [id number] PPM Generator - Secretarial Teacher: CH[employer], Model # L111 , Serial # [id number] DEVICE PARAMETERS ATRIAL LEAD PARAMETERS: threshold- AFIB impedence- 603 (OHMS) P wave- 8.0 (mV) VENTRICULAR LEAD PARAMETERS: R wave- 2.5 (mV) Current- 0.9 (mA) threshold- 0.7 (V) impedence- 794 (OHMS) DEVICE PARAMETERS: Mode- DDD Lower rate- 60 Upper rate- 130 CONCLUSIONS / RECOMMENDATIONS Device Conclusions: Successful implantation of a dual chamber pacemaker Device Recommendations: Follow up with Primary Care Physician PROCEDURE MEDICATIONS Fentanyl 50 mcg IV Versed 1 mg IV Versed 1 mg IV Oxygen: 2 L/min via nasal cannula Antibiotic given in appropriate timeframe. Clindamycin 900 mg IV 01/08/2021 12:20:15 Signed By Chago Gonzáles MD On 01/08/2021 13:45:04 Chago Gonzáles MD
[2021-01-08 14:15] LABS: Absolute Lymphocyte Count 1.32 X10^3/uL (0.83-4.51); Absolute Neutrophil Count 4.9 X10^3/uL (2.0-7.7); Basophil# 0.02 X10^3/uL; Basophil% 0.3 % (0-1); Eosinophil# 0.25 X10^3/uL; Eosinophils% 3.4 % (0-5); Hematocrit 36.5 % (40-54); Hemoglobin 11.9 g/dL (13.0-16.5); Lymphocyte # 1.32 X10^3/ul (0.83-4.51); Lymphocyte % 17.9 % (19-41); Mean Corp Hgb Conc 32.6 g/dL (32-36); Mean Corpuscular Hgb 29.4 pg (27.0-32.0); Mean Corpuscular Volume 90.1 fL (80-94); Mean Platelet Vol. 10.8 fl (6.2-12.0); Monocyte# 0.85 X10^3/uL; Monocyte% 11.5 % (0-10); NRBC Flagged by Analyzer 0 % (0-5); Neutrophil % 66.5 % (47-70); Platelet Count 292 K/mm3 (150-450); RBC Distribution Width CV 13.2 % (11.6-14.6); RBC Distribution Width SD 43.6 fl (35.1-43.9); Red Blood Count 4.05 M/mm3 (4.6-6.2); White Blood Count 7.4 K/mm3 (4.4-11.0)
[2021-01-08] MEDS: Oxybutynin 5 MG Tablet PO ×2 (15:20→20:06)
[2021-01-08 17:36] LABS: Bedside Glucose 206 mg/dL (70-110)
[2021-01-08] MEDS: Insulin Lispro 100 UNIT/ML INSULN.PEN SC ×2 (17:37→20:07)
[2021-01-08] MEDS: Acetaminophen 325 MG Tablet 650 MG PO (18:55)
[2021-01-08] MEDS: Gabapentin 100 MG Capsule PO (20:06)
[2021-01-08] MEDS: OXcarbazepine 300 MG Tablet PO (20:06)
[2021-01-08] MEDS: traZODone 50 MG Tablet PO (20:06)
[2021-01-08 22:41] LABS: Bedside Glucose 284 mg/dL (70-110)
[2021-01-09 00:59] VITALS: BP 133/80; PULSE 78; RESP 18; TEMP 36.9; O2SAT 94
[2021-01-09 03:17] VITALS: PULSE 80
[2021-01-09] MEDS: Oxybutynin 5 MG Tablet PO (05:52)
[2021-01-09] MEDS: Levothyroxine 112 MCG Tablet PO (05:52)
[2021-01-09] MEDS: 0.9% Normal Saline 1,000 ML 100 ML IV (05:52)
--- NOTE | 2021-01-09 05:55 | RAD_ITS ---
STUDY: X-RAY CHEST REASON FOR EXAM: Male, 70 years old. Post permanent ICD/Pacemaker -- inspiration/expiration. Arms Down. Wet read to TECHNIQUE: AP and lateral views of the chest. Images taken in inspiration and expiration COMPARISON: 01/05/2021 FINDINGS: Mild bibasilar atelectasis. There is now a generator device in the left chest with leads terminating in the right atrium and right ventricle. No pneumothorax. There is no demonstrated pleural abnormality. There is mild cardiac enlargement. Normal mediastinum and prerna. Normal visualized pulmonary arteries. Normal visualized aortic arch and descending thoracic aorta. There are diffuse degenerative changes of the visualized thoracic spine. There is degenerative osteoarthritis of the bilateral shoulders. There is no demonstrated abnormality of the visualized soft tissue structures of the upper abdomen. RAD/Chest 3 View IMPRESSION: Normal appearance of dual lead cardiac device. No pneumothorax. Bibasilar atelectasis. Electronically Signed: Jace Foster MD at 6:30 EDT Tel , Service support ,
[2021-01-09 06:00] VITALS: BP 132/92; PULSE 74; RESP 18; TEMP 36.9; O2SAT 94
[2021-01-09 06:50] LABS: Bedside Glucose 120 mg/dL (70-110)
[2021-01-09 07:12] LABS: Hematocrit 35.3 % (40-54); Hemoglobin 11.6 g/dL (13.0-16.5); Mean Corp Hgb Conc 32.9 g/dL (32-36); Mean Corpuscular Hgb 29.6 pg (27.0-32.0); Mean Corpuscular Volume 90.1 fL (80-94); Mean Platelet Vol. 10.3 fl (6.2-12.0); Platelet Count 283 K/mm3 (150-450); RBC Distribution Width SD 42.9 fl (35.1-43.9); Red Blood Count 3.92 M/mm3 (4.6-6.2); White Blood Count 7.3 K/mm3 (4.4-11.0)
[2021-01-09 07:25] VITALS: PULSE 78
[2021-01-09 07:42] LABS: Anion Gap 5 (5-15); BUN 37 mg/dL (7-18); BUN/Creat Ratio 17.1 RATIO (10-20); Calcium,Total 9.1 mg/dL (8.5-10.1); Chloride 112 mmol/L (98-107); Creatinine, Serum 2.17 mg/dL (0.70-1.30); EST Glomerular Filtration Rate 32 mL/min (>60); Est Glom Filt Rate - Afr Amer 39 mL/min (>60); Estimated Creatinine Clearance 32.77 ml/min; Glucose 139 mg/dL (74-106); Magnesium 1.8 mg/dL (1.6-2.6); Potassium 4.3 mmol/L (3.5-5.1); Sodium Level 139 mmol/L (136-145)
--- NOTE | 2021-01-09 08:13 | PCM.PN.CARD ---
Subjective Subjective Patient seen and evaluated. Objective Data Vital Signs: Vital Signs Temp Pulse Resp BP Pulse Ox 98.4 F 78 18 132/92 H 94 01/09/21 06:00 01/09/21 07:25 01/09/21 06:00 01/09/21 06:00 01/09/21 06:00 Oxygen Delivery Method Room Air Weight: 190 lb 7.67 oz Body Mass Index (BMI) 26.2 Intake & Output: Intake and Output for Last 24 Hours 01/07/21 01/08/21 01/09/21 23:59 23:59 23:59 Intake Total 2871.66 / 2871.66 3609.33 / 4049.33 1636.67 / 1636.67 Output Total 2250 / 2250 1250 / 2075 1450 / 1450 Balance 621.66 / 621.66 2359.33 / 1974.33 186.67 / 186.67 Lab / Micro Data Result Diagrams: 01/09/21 06:44 01/09/21 06:44 Labs: Laboratory Results - last 24 hr 01/08/21 05:05: WBC 7.4, RBC 4.05 L, Hgb 11.9 L, Hct 36.5 L, MCV 90.1, MCH 29.4, MCHC 32.6, RDW Std Deviation 43.6, RDW Coeff of Shashank 13.2, Plt Count 292, MPV 10.8, Immature Gran % (Auto) 0.400, Neut % (Auto) 66.5, Lymph % (Auto) 17.9 L, [place] % (Auto) 11.5 H, Eos % (Auto) 3.4, Baso % (Auto) 0.3, Absolute Neuts (auto) 4.9, Absolute Lymphs (auto) 1.32, Nucleated RBC % 0 01/08/21 05:05: Sodium 140, Potassium 4.1, Chloride 113 H, Carbon Dioxide 22.0, Anion Gap 5, BUN 32 H, Creatinine 2.30 H, Estim Creat Clear Calc 30.92, Est GFR (MDRD) Af Amer 36 L, Est GFR (MDRD) Non-Af 30 L, BUN/Creatinine Ratio 13.9, Glucose 87, Calcium 9.2 01/08/21 11:21: POC Glucose 139 H 01/08/21 17:17: POC Glucose 206 H 01/08/21 20:04: POC Glucose 284 H 01/09/21 05:58: POC Glucose 120 H 01/09/21 06:44: WBC 7.3, RBC 3.92 L, Hgb 11.6 L, Hct 35.3 L, MCV 90.1, MCH 29.6, MCHC 32.9, RDW Std Deviation 42.9, RDW Coeff of Shashank 13.0, Plt Count 283, MPV 10.3 01/09/21 06:44: Sodium 139, Potassium 4.3, Chloride 112 H, Carbon Dioxide 22.0, Anion Gap 5, BUN 37 H, Creatinine 2.17 H, Estim Creat Clear Calc 32.77, Est GFR (MDRD) Af Amer 39 L, Est GFR (MDRD) Non-Af 32 L, BUN/Creatinine Ratio 17.1, Glucose 139 H, Calcium 9.1, Magnesium 1.8 Rhythm Strip Rhythm Strip: A-fib Ectopy: None Cardiology Labs/Tests 01/08/21 05:05: WBC 7.4, RBC 4.05 L, Hgb 11.9 L, Hct 36.5 L, MCV 90.1, MCH 29.4, MCHC 32.6, Plt Count 292, MPV 10.8, Immature Gran % (Auto) 0.400, Neut % (Auto) 66.5, Lymph % (Auto) 17.9 L, [place] % (Auto) 11.5 H, Eos % (Auto) 3.4, Baso % (Auto) 0.3, Absolute Neuts (auto) 4.9, Nucleated RBC % 0 01/08/21 05:05: Sodium 140, Potassium 4.1, Chloride 113 H, Carbon Dioxide 22.0, Anion Gap 5, BUN 32 H, Creatinine 2.30 H, Est GFR (MDRD) Af Amer 36 L, Est GFR (MDRD) Non-Af 30 L, BUN/Creatinine Ratio 13.9, Glucose 87, Calcium 9.2 01/09/21 06:44: WBC 7.3, RBC 3.92 L, Hgb 11.6 L, Hct 35.3 L, MCV 90.1, MCH 29.6, MCHC 32.9, Plt Count 283, MPV 10.3 01/09/21 06:44: Sodium 139, Potassium 4.3, Chloride 112 H, Carbon Dioxide 22.0, Anion Gap 5, BUN 37 H, Creatinine 2.17 H, Est GFR (MDRD) Af Amer 39 L, Est GFR (MDRD) Non-Af 32 L, BUN/Creatinine Ratio 17.1, Glucose 139 H, Calcium 9.1, Magnesium 1.8 Rhythm: EKG: ECHO: Stress Test: Cardiac Cath: PCI: CT Surgery: Holter monitor: EPS: PPM: CXR: Chest CT Scan: Radiography Diagnostic Testing: Radiology Impression Chest X-Ray 01/09/21 05:55 IMPRESSION: Normal appearance of dual lead cardiac device. No pneumothorax. Bibasilar atelectasis. Electronically Signed: Jace Foster MD at 6:30 EDT Tel , Service support , Risk Stratification Risk Stratification Applicable: No Assessment & Plan Assessment/Plan (1) History of permanent cardiac pacemaker placement: PLAN: Patient is status post dual-chamber pacemaker implantation. Appears to be doing well. Chest x-ray is noted to demonstrate good positioning of leads and pacer interrogation today demonstrates normal function. We will discharge for outpatient follow-up Hold any anticoagulation until patient is seen as an outpatient.
--- NOTE | 2021-01-09 08:15 | DCINST_ITS ---
Discharge Instructions Diet Discharge Diet: No restrictions (as you feel able. No excessive stretching. No lifting your arm over your head (keep elbow below shoulder level) until seen for your pacemaker check. Do not lift your elbow away from your side until you are seen for your first visit. Keep the arm sling on if it helps remind you not to lift your arm.) Activity Discharge Activity: May Not Drive May shower in (days): 3 Lifting Restrictions: No lifting with a left arm Dressing / Incision Call your doctor if your incision/area has: Continuous Slow Oozing, Sudden Increased Bleeding, Increased Pain/ Swelling, Increased Redness, Foul Smelling Discharge and Swelling at the incision site Call your doctor if you observe: Fever of 101 or Higher, Shortness of breath, Dizziness, Fainting spells, Swelling in the ankles, Chest pain, Prolonged hiccupping and Increased palpitations (irregular heartbeat) Additional Dressing/Incision Instructions:: When dressing is removed, wash and dry incision. Keep covered with a light bandage if it is rubbing against your clothing. Do not cover the incision with an airtight bandage. Change the bandage daily. Do not remove steri strips. The strips will fall off on their own. Follow Up Care Please Follow Up With: Chago Gonzáles MD When: Call [phone] for follow up. Pacer follow-up 01/22 at 11 AM Test Results: Test results from this visit will be discussed in further detail at your follow-up appointment, if applicable. Discharge Plan Admission Admit Date/Time: 01/06/21 12:33 Attending Provider: Av Roach Primary Care Provider: Issa Trinidad Consulting Providers: Justa Hannah ; Jeannie Spears Discharge Orders/Prescriptions Prescriptions: No Action aspirin 81 mg tablet,delayed release (DR/EC) 81 mg PO QDAY RF: 0 nitroglycerin [Nitrostat] 0.4 mg tablet, sublingual 0.4 mg SUBLINGUAL Q5M PRN (Reason: CHEST PAIN) RF: 0 amlodipine 10 mg tablet 10 mg PO DAILY RF: 0 cholecalciferol (vitamin D3) 1,000 unit capsule 1,000 unit PO DAILY RF: 0 fenofibrate nanocrystallized 145 mg tablet 200 mg PO DAILY RF: 0 insulin glargine 100 unit/mL (3 mL) insulin pen 32 unit subcut DAILY RF: 0 ferrous sulfate 325 MG tablet 325 mg PO DAILY RF: 0 multivitamin 1 EACH tablet 1 tab PO DAILY RF: 0 carvedilol 6.25 MG tablet 6.25 mg PO BID RF: 0 levothyroxine 112 mcg tablet 112 mcg PO DAILY RF: 0 Brilinta 90 mg tablet 90 mg PO BID RF: 0 gabapentin 600 mg Tablet 600 mg PO BID RF: 0 trazodone 50 mg Tablet 50 mg PO QHS RF: 0 oxcarbazepine [Trileptal] 300 mg Tablet 300 mg PO QHS RF: 0 lorazepam 0.5 mg Tablet 0.5 mg PO BID RF: 0 insulin aspart U-100 [Novolog U-100 Insulin aspart] 100 unit/mL Solution See Rx Instructions .ROUTE .COMPLEX RF: 0 oxybutynin chloride 5 mg Tablet 5 mg PO TID RF: 0 fluticasone propionate 50 mcg/actuation [place],Suspension 1 spray INTRANASAL DAILY RF: 0 fiber Capsule 1 cap PO DAILY RF: 0 duloxetine 60 mg Capsule,Delayed Release(Dr/Ec) 60 mg PO DAILY RF: 0 diclofenac sodium 1 % Gel 1 ea TOPICAL DAILY RF: 0 Invega Sustenna 234 mg/1.5 mL Syringe 234 mg IM Q28D RF: 0 Referrals / Follow Up: Issa Trinidad MD [Primary Care Provider] -
--- NOTE | 2021-01-09 09:01 | CASEMGMT ---
JACOB called Evangelina at [facility]. Patient does not need a pre-cert to return. JACOB let her know he will be returning today. Mechelle CERVANTES
[2021-01-09 09:28] VITALS: BP 150/89; PULSE 85; RESP 14; TEMP 37.2; O2SAT 95
[2021-01-09] MEDS: Ferrous Sulfate 325 MG Tablet PO (09:31)
[2021-01-09] MEDS: DULoxetine Hcl 60 MG Capsule PO (09:32)
[2021-01-09] MEDS: Multivitamins,Therapeutic Tablet 1 TABLET PO (09:32)
[2021-01-09] MEDS: Cholecalciferol (VIT D3) 25 MCG TABLET (1,000 UNITS) PO (09:32)
[2021-01-09] MEDS: Fenofibrate 145 MG Tablet PO (09:32)
[2021-01-09] MEDS: amLODIPine 10 MG Tablet PO (09:33)
[2021-01-09] MEDS: Gabapentin 100 MG Capsule PO (09:33)
[2021-01-09] MEDS: Fluticasone 0.05% 1 SPRAY NASAL.SRY NASAL (09:33)
--- NOTE | 2021-01-09 09:57 | TREXTCAR_ITS ---
Diet 01/08/21 Lunch Diet: Cardiac: Calorie-Controlled Dietary Modifications:: Consistent Carbohydrate Sodium Restricted Is pt able to select menu?: Yes How many daily calories?: 2000 calorie Routine Orders/Code Status Enema Type: Fleetz Enema Frequency: Daily PRN Suppository Type: Dulcolax 10mg Suppository Frequency: Daily PRN O2 Frequency: PRN Code Status: Full Code Wound(s) LEFT CHEST: Wound Type: Surgical Incision Suggestions for Active Care Change Position every (hours): 2 Hours to sit in a chair: 2 Times a day to sit in chair: 3 Problem/Diagnosis (1) History of permanent cardiac pacemaker placement: Status: Acute Allergies/Procedures Done in Hospital Allergies atorvastatin [From Lipitor] Allergy (Verified 01/05/21 13:50) Unknown Penicillins Allergy (Verified 01/05/21 13:50) Unknown lisinopril Adverse Reaction (Unknown, Verified 01/05/21 13:50) unknown codeine Adverse Reaction (Verified 01/05/21 13:50) Upset Stomach doxycycline Adverse Reaction (Verified 01/05/21 13:50) Other nickel Adverse Reaction (Verified 01/05/21 13:50) Rash LYCOPEEN Adverse Reaction (Uncoded 01/05/21 13:50) Other Procedures: EKG Type of Care/Length of Stay Estimated LOS: More Than 30 Days Type of Care Needed: Intermediate Rehab Potential: Fair Prognosis: Fair Additional Orders/Day of Discharge Day of Discharge: 01/09/21 Dietary and Speech Recommendations Dietitian Recommendations/Changes: 2000 calorie; consistent carbohydrate; cardiac/sodium-restricted diet. ONS if PO declines at meals, will defer for now. Follow Up Care Please Follow Up With: Chago Gonzáles MD When: 01/22 at 11 am Discharge Plan Admission Admit Date/Time: 01/06/21 12:33 Primary Reason for Your Visit: Syncope Attending Provider: Av Roach Primary Care Provider: Issa Trinidad Consulting Providers: Justa Hannah ; Jeannie Spears Discharge Orders/Prescriptions Prescriptions: New fenofibrate nanocrystallized 145 mg Tablet 145 mg PO 0800 Qty: 0 RF: 0 Continued aspirin 81 mg tablet,delayed release (DR/EC) 81 mg PO QDAY RF: 0 nitroglycerin [Nitrostat] 0.4 mg tablet, sublingual 0.4 mg SUBLINGUAL Q5M PRN (Reason: CHEST PAIN) RF: 0 amlodipine 10 mg tablet 10 mg PO DAILY RF: 0 cholecalciferol (vitamin D3) 1,000 unit capsule 1,000 unit PO DAILY RF: 0 insulin glargine 100 unit/mL (3 mL) insulin pen 32 unit subcut DAILY RF: 0 ferrous sulfate 325 MG tablet 325 mg PO DAILY RF: 0 multivitamin 1 EACH tablet 1 tab PO DAILY RF: 0 carvedilol 6.25 MG tablet 6.25 mg PO BID RF: 0 levothyroxine 112 mcg tablet 112 mcg PO DAILY RF: 0 gabapentin 600 mg Tablet 600 mg PO BID RF: 0 trazodone 50 mg Tablet 50 mg PO QHS RF: 0 oxcarbazepine [Trileptal] 300 mg Tablet 300 mg PO QHS RF: 0 lorazepam 0.5 mg Tablet 0.5 mg PO BID RF: 0 insulin aspart U-100 [Novolog U-100 Insulin aspart] 100 unit/mL Solution See Rx Instructions .ROUTE .COMPLEX RF: 0 oxybutynin chloride 5 mg Tablet 5 mg PO TID RF: 0 fluticasone propionate 50 mcg/actuation [place],Suspension 1 spray INTRANASAL DAILY RF: 0 fiber Capsule 1 cap PO DAILY RF: 0 duloxetine 60 mg Capsule,Delayed Release(Dr/Ec) 60 mg PO DAILY RF: 0 diclofenac sodium 1 % Gel 1 ea TOPICAL DAILY RF: 0 Invega Sustenna 234 mg/1.5 mL Syringe 234 mg IM Q28D RF: 0 Discontinued fenofibrate nanocrystallized 145 mg tablet 200 mg PO DAILY RF: 0 Brilinta 90 mg tablet 90 mg PO BID RF: 0 Referrals / Follow Up: Issa Trinidad MD [Primary Care Provider] - Disposition Disposition (needs filled in before D/C Order can be placed): NonSkilled NH/Intermed Care
--- NOTE | 2021-01-09 10:08 | DS.PCM_ITS ---
Documented by User: MANSI Santiago 01/09/21 10:19 Providers Date of Admission: 01/06/21 Primary Care Physician: Dr. Issa Trinidad MD Consultations 01/05/21 19:13 Consult: Cardiology Routine Consulting Provider: Justa Hannah Reason for Consult: paf with pause EMERGENT Consult: Yes MD Notified: Yes Date Notified: 01/05/21 Time Notified: 19:21 Method of Notification: telephone` 01/05/21 20:50 Consult: Cardiology Routine Consulting Provider: Jeannie Spears Reason for Consult: Syncope with sinus pause and A. fib EMERGENT Consult: Yes MD Notified: Yes Date Notified: 01/05/21 Time Notified: 19:30 Method of Notification: Verbal Reason For Visit: FALL RIV[place] HEAD INJURY Diagnosis Discharge Diagnosis (1) History of permanent cardiac pacemaker placement: Status: Acute Code(s): Z95.0 - Presence of cardiac pacemaker Medications at Discharge Home Medications ferrous sulfate 325 mg PO DAILY 04/09/16 multivitamin 1 tab PO DAILY 09/07/16 aspirin 81 mg tablet,delayed release 81 mg PO QDAY 02/27/17 nitroglycerin 0.4 mg sublingual tablet 0.4 mg SUBLINGUAL Q5M PRN 02/27/17 amlodipine 10 mg tablet 10 mg PO DAILY 02/03/19 cholecalciferol (vitamin D3) 25 mcg (1,000 unit) capsule 1,000 unit PO DAILY 02/03/19 carvedilol 6.25 mg PO BID 03/25/20 insulin glargine 100 unit/mL (3 mL) subcutaneous pen 32 unit SUBCUT DAILY ml 09/08/20 levothyroxine 112 mcg PO DAILY 09/23/20 Invega Sustenna 234 mg IM Q28D 01/05/21 diclofenac sodium 1 ea TOPICAL DAILY 01/05/21 duloxetine 60 mg PO DAILY 01/05/21 fiber 1 cap PO DAILY 01/05/21 fluticasone propionate 1 spray INTRANASAL DAILY 01/05/21 gabapentin 600 mg PO BID 01/05/21 insulin aspart U-100 [Novolog U-100 Insulin aspart] See Rx Instructions .ROUTE .COMPLEX 01/05/21 lorazepam 0.5 mg PO BID 01/05/21 oxcarbazepine [Trileptal] 300 mg PO QHS 01/05/21 oxybutynin chloride 5 mg PO TID 01/05/21 trazodone 50 mg PO QHS 01/05/21 fenofibrate nanocrystallized 145 mg PO 0800 #0 tab 01/09/21 Hospital Course Operations None Procedures EKG and - (Pacemaker placement) Summary of Care Provided Minutes Spent on Discharge: 35 Hospital Course: Patient was admitted on 01/05/2021 with complaints of multiple syncopal episodes throughout the day. Patient was noted to have elevated creatinine. Patient was found to have long pauses with multiple artifacts on telemetry and was subsequently moved to ICU for closer monitoring and use of transcutaneous pacer. Patient left for permanent pacemaker placement with Dr. Gonzáles on 01/08/2021. Patient is paced on telemetry. Patient will go home with left arm sling in place to reduce complications for recent pacemaker placement. Follow-up with Dr. Gonzáles 01/22/21 at 1130. Physical Exam Const alert and no apparent distress General Appearance: cooperative Orientation / Consciousness: awake, oriented to person, oriented to place and other Other Details: Forgetful HEENT normocephalic and head/scalp atraumatic Eyes conjunctivae normal and no scleral icterus Neck full ROM and supple General: trachea midline Resp normal respiratory effort, normal air movement and clear to auscultation bilaterally Cardio regular rate, regular rhythm, S1 normal heart sound, S2 normal heart sound and peripheral pulses 2+ throughout GI normal to inspection, nondistended, normoactive bowel sounds, soft to palpation and non-tender Extremity normal capillary refill and no clubbing, cyanosis or edema General Extremity: no tenderness to palpation of joints or extremities Skin skin turgor normal General Skin Exam: no breakdown Lesions: no lesions Rashes: no rashes Neuro moves all extremities, no focal motor deficits and no sensory deficits noted Sensorium / Orientation: awake, alert, oriented to person and oriented to place Speech: speech normal Psych affect normal Appearance: appropriate Weight / BMI Weight Weight: 190 lb 7.67 oz Body Mass Index (BMI) 26.2 ABG / Lab / Microbiology Data Result Diagrams: 01/09/21 06:44 01/09/21 06:44 Laboratory: Laboratory Results - last 24 hr 01/08/21 05:05: WBC 7.4, RBC 4.05 L, Hgb 11.9 L, Hct 36.5 L, MCV 90.1, MCH 29.4, MCHC 32.6, RDW Std Deviation 43.6, RDW Coeff of Shashank 13.2, Plt Count 292, MPV 10.8, Immature Gran % (Auto) 0.400, Neut % (Auto) 66.5, Lymph % (Auto) 17.9 L, M yosvany % (Auto) 11.5 H, Eos % (Auto) 3.4, Baso % (Auto) 0.3, Absolute Neuts (auto) 4.9, Absolute Lymphs (auto) 1.32, Nucleated RBC % 0 01/08/21 05:05: Sodium 140, Potassium 4.1, Chloride 113 H, Carbon Dioxide 22.0, Anion Gap 5, BUN 32 H, Creatinine 2.30 H, Estim Creat Clear Calc 30.92, Est GFR (MDRD) Af Amer 36 L, Est GFR (MDRD) Non-Af 30 L, BUN/Creatinine Ratio 13.9, Glucose 87, Calcium 9.2 01/08/21 11:21: POC Glucose 139 H 01/08/21 17:17: POC Glucose 206 H 01/08/21 20:04: POC Glucose 284 H 01/09/21 05:58: POC Glucose 120 H 01/09/21 06:44: WBC 7.3, RBC 3.92 L, Hgb 11.6 L, Hct 35.3 L, MCV 90.1, MCH 29.6, MCHC 32.9, RDW Std Deviation 42.9, RDW Coeff of Shashank 13.0, Plt Count 283, MPV 10.3 01/09/21 06:44: Sodium 139, Potassium 4.3, Chloride 112 H, Carbon Dioxide 22.0, Anion Gap 5, BUN 37 H, Creatinine 2.17 H, Estim Creat Clear Calc 32.77, Est GFR (MDRD) Af Amer 39 L, Est GFR (MDRD) Non-Af 32 L, BUN/Creatinine Ratio 17.1, Glucose 139 H, Calcium 9.1, Magnesium 1.8 Microbiology: Microbiology 01/09/21 09:20 Nasal Secretion SARS-CoV-2 Antigen (Rapid) - Final Radiography Diagnostic Testing: Radiology Impression Chest X-Ray 01/09/21 05:55 IMPRESSION: Normal appearance of dual lead cardiac device. No pneumothorax. Bibasilar atelectasis. Electronically Signed: Jace Foster MD at 6:30 EDT Tel , Service support , D/C Instructions Discharge Diet: No restrictions (as you feel able. No excessive stretching. No lifting your arm over your head (keep elbow below shoulder level) until seen for your pacemaker check. Do not lift your elbow away from your side until you are seen for your first visit. Keep the arm sling on if it helps remind you not to lift your arm.) May shower in (days): 3 Call your doctor if your incision/area has: Continuous Slow Oozing, Sudden Increased Bleeding, Increased Pain/ Swelling, Increased Redness, Foul Smelling Discharge and Swelling at the incision site Call your doctor if you observe: Fever of 101 or Higher, Shortness of breath, Dizziness, Fainting spells, Swelling in the ankles, Chest pain, Prolonged hiccupping and Increased palpitations (irregular heartbeat) Additional Dressing/Incision Instructions: When dressing is removed, wash and dry incision. Keep covered with a light bandage if it is rubbing against your clothing. Do not cover the incision with an airtight bandage. Change the bandage daily. Do not remove steri strips. The strips will fall off on their own. Please Follow Up With: Chago Gonzáles MD When: Call [phone] for follow up. Pacer follow-up 01/22 at 11 AM Meaningful Use Info Meaningful Use Diagnoses (Choose all that apply): None applicable Discharge Plan Admission Admit Date/Time: 01/06/21 12:33 Primary Reason for Your Visit: Syncope Attending Provider: Av Roach Primary Care Provider: Issa Trinidad Consulting Providers: Justa Hannah ; Jeannie Spears Discharge Orders/Prescriptions Prescriptions: New fenofibrate nanocrystallized 145 mg Tablet 145 mg PO 0800 Qty: 0 RF: 0 Continued nitroglycerin [Nitrostat] 0.4 mg tablet, sublingual 0.4 mg SUBLINGUAL Q5M PRN (Reason: CHEST PAIN) RF: 0 amlodipine 10 mg tablet 10 mg PO DAILY RF: 0 cholecalciferol (vitamin D3) 1,000 unit capsule 1,000 unit PO DAILY RF: 0 insulin glargine 100 unit/mL (3 mL) insulin pen 32 unit subcut DAILY RF: 0 ferrous sulfate 325 MG tablet 325 mg PO DAILY RF: 0 multivitamin 1 EACH tablet 1 tab PO DAILY RF: 0 carvedilol 6.25 MG tablet 6.25 mg PO BID RF: 0 levothyroxine 112 mcg tablet 112 mcg PO DAILY RF: 0 gabapentin 600 mg Tablet 600 mg PO BID RF: 0 trazodone 50 mg Tablet 50 mg PO QHS RF: 0 oxcarbazepine [Trileptal] 300 mg Tablet 300 mg PO QHS RF: 0 lorazepam 0.5 mg Tablet 0.5 mg PO BID RF: 0 insulin aspart U-100 [Novolog U-100 Insulin aspart] 100 unit/mL Solution See Rx Instructions .ROUTE .COMPLEX RF: 0 oxybutynin chloride 5 mg Tablet 5 mg PO TID RF: 0 fluticasone propionate 50 mcg/actuation [place],Suspension 1 spray INTRANASAL DAILY RF: 0 fiber Capsule 1 cap PO DAILY RF: 0 duloxetine 60 mg Capsule,Delayed Release(Dr/Ec) 60 mg PO DAILY RF: 0 diclofenac sodium 1 % Gel 1 ea TOPICAL DAILY RF: 0 Invega Sustenna 234 mg/1.5 mL Syringe 234 mg IM Q28D RF: 0 Held aspirin 81 mg tablet,delayed release (DR/EC) 81 mg PO QDAY RF: 0 Hold Instructions: Resume on 01/22/21. Discontinued fenofibrate nanocrystallized 145 mg tablet 200 mg PO DAILY RF: 0 Brilinta 90 mg tablet 90 mg PO BID RF: 0 Referrals / Follow Up: Chago Gonzáles MD [STAFF PHYSICIAN] - 01/22/21 11:00 am Issa Trinidad MD [Primary Care Provider] - Disposition Disposition (needs filled in before D/C Order can be placed): NonSkilled NH/Intermed Care Documented by User: Dr. Av Roach MD 01/09/21 10:45 Providers Date of Admission: 01/06/21 Reason For Visit: FALL RIVAS HEAD INJURY Medications at Discharge Home Medications ferrous sulfate 325 mg PO DAILY 04/09/16 multivitamin 1 tab PO DAILY 09/07/16 aspirin 81 mg tablet,delayed release 81 mg PO QDAY 02/27/17 nitroglycerin 0.4 mg sublingual tablet 0.4 mg SUBLINGUAL Q5M PRN 02/27/17 amlodipine 10 mg tablet 10 mg PO DAILY 02/03/19 cholecalciferol (vitamin D3) 25 mcg (1,000 unit) capsule 1,000 unit PO DAILY 02/03/19 carvedilol 6.25 mg PO BID 03/25/20 insulin glargine 100 unit/mL (3 mL) subcutaneous pen 32 unit SUBCUT DAILY ml 09/08/20 levothyroxine 112 mcg PO DAILY 09/23/20 Invega Sustenna 234 mg IM Q28D 01/05/21 diclofenac sodium 1 ea TOPICAL DAILY 01/05/21 duloxetine 60 mg PO DAILY 01/05/21 fiber 1 cap PO DAILY 01/05/21 fluticasone propionate 1 spray INTRANASAL DAILY 01/05/21 gabapentin 600 mg PO BID 01/05/21 insulin aspart U-100 [Novolog U-100 Insulin aspart] See Rx Instructions .ROUTE .COMPLEX 01/05/21 lorazepam 0.5 mg PO BID 01/05/21 oxcarbazepine [Trileptal] 300 mg PO QHS 01/05/21 oxybutynin chloride 5 mg PO TID 01/05/21 trazodone 50 mg PO QHS 01/05/21 fenofibrate nanocrystallized 145 mg PO 0800 #0 tab 01/09/21 Hospital Course Operations None Summary of Care Provided Minutes Spent on Discharge: 35 Hospital Course: This patient was seen in conjunction with MANSI Santiago . I have independently interviewed and examined the patient and reviewed pertinent historical, laboratory, and other data. Please refer to MANSI Santiago note for details of this patient's presentation, findings, and recommendations. I have reviewed MANSI Santiago note and concur with documented findings. In brief, Patient is a 70-year-old gentleman admitted following a syncopal episode. Was found to have significant sinus pauses while being monitored in the progressive care unit. Was started on transcutaneous pacing and transferred to the intensive care unit consultation placed to cardiology. Patient underwent pacemaker placement on 01/08/2021 Hospital course; as documented above ABG / Lab / Microbiology Data Result Diagrams: 01/09/21 06:44 01/09/21 06:44 Discharge Plan Admission Admit Date/Time: 01/06/21 12:33 Primary Reason for Your Visit: Syncope Attending Provider: Av Roach Primary Care Provider: Issa Trinidad Consulting Providers: Justa Hannah ; Jeannie Spears Discharge Orders/Prescriptions Prescriptions: New fenofibrate nanocrystallized 145 mg Tablet 145 mg PO 0800 Qty: 0 RF: 0 Continued nitroglycerin [Nitrostat] 0.4 mg tablet, sublingual 0.4 mg SUBLINGUAL Q5M PRN (Reason: CHEST PAIN) RF: 0 amlodipine 10 mg tablet 10 mg PO DAILY RF: 0 cholecalciferol (vitamin D3) 1,000 unit capsule 1,000 unit PO DAILY RF: 0 insulin glargine 100 unit/mL (3 mL) insulin pen 32 unit subcut DAILY RF: 0 ferrous sulfate 325 MG tablet 325 mg PO DAILY RF: 0 multivitamin 1 EACH tablet 1 tab PO DAILY RF: 0 carvedilol 6.25 MG tablet 6.25 mg PO BID RF: 0 levothyroxine 112 mcg tablet 112 mcg PO DAILY RF: 0 gabapentin 600 mg Tablet 600 mg PO BID RF: 0 trazodone 50 mg Tablet 50 mg PO QHS RF: 0 oxcarbazepine [Trileptal] 300 mg Tablet 300 mg PO QHS RF: 0 lorazepam 0.5 mg Tablet 0.5 mg PO BID RF: 0 insulin aspart U-100 [Novolog U-100 Insulin aspart] 100 unit/mL Solution See Rx Instructions .ROUTE .COMPLEX RF: 0 oxybutynin chloride 5 mg Tablet 5 mg PO TID RF: 0 fluticasone propionate 50 mcg/actuation [place],Suspension 1 spray INTRANASAL DAILY RF: 0 fiber Capsule 1 cap PO DAILY RF: 0 duloxetine 60 mg Capsule,Delayed Release(Dr/Ec) 60 mg PO DAILY RF: 0 diclofenac sodium 1 % Gel 1 ea TOPICAL DAILY RF: 0 Invega Sustenna 234 mg/1.5 mL Syringe 234 mg IM Q28D RF: 0 Held aspirin 81 mg tablet,delayed release (DR/EC) 81 mg PO QDAY RF: 0 Hold Instructions: Resume on 01/22/21. Discontinued fenofibrate nanocrystallized 145 mg tablet 200 mg PO DAILY RF: 0 Brilinta 90 mg tablet 90 mg PO BID RF: 0 Referrals / Follow Up: Chago Gonzáles MD [STAFF PHYSICIAN] - 01/22/21 11:00 am Issa Trinidad MD [Primary Care Provider] - Disposition Disposition (needs filled in before D/C Order can be placed): NonSkilled NH/Intermed Care Charges/Coding Visit Charges Inpatient E&M: 44640 Disch Hosp Hospital Course Imaging Results Imaging Results: 01/09/21 05:55 Chest 3 View [RAD] Routine Consultations Consultations: Consultations 01/05/21 19:13 Consult: Cardiology Routine Consulting Provider: Justa Hannah Reason for Consult: paf with pause EMERGENT Consult: Yes Notified: Yes Date Notified: 01/05/21 Time Notified: 19:21 Method of Notification: telephone` 01/05/21 20:50 Consult: Cardiology Routine Consulting Provider: Jeannie Spears Reason for Consult: Syncope with sinus pause and A. fib EMERGENT Consult: Yes Notified: Yes Date Notified: 01/05/21 Time Notified: 19:30 Method of Notification: Verbal Operations None
[2021-01-09 10:16] VITALS: O2SAT 92
--- NOTE | 2021-01-09 10:26 | PHA.DC.MR ---
Pharmacy Service has performed discharge medication reconciliation for this patient. The patient's discharge medication list was reviewed for discrepancies and discrepancies were resolved. Home Medications ferrous sulfate 325 mg PO DAILY 04/09/16 multivitamin 1 tab PO DAILY 09/07/16 aspirin 81 mg tablet,delayed release 81 mg PO QDAY 02/27/17 nitroglycerin 0.4 mg sublingual tablet 0.4 mg SUBLINGUAL Q5M PRN 02/27/17 amlodipine 10 mg tablet 10 mg PO DAILY 02/03/19 cholecalciferol (vitamin D3) 25 mcg (1,000 unit) capsule 1,000 unit PO DAILY 02/03/19 carvedilol 6.25 mg PO BID 03/25/20 insulin glargine 100 unit/mL (3 mL) subcutaneous pen 32 unit SUBCUT DAILY ml 09/08/20 levothyroxine 112 mcg PO DAILY 09/23/20 Invega Sustenna 234 mg IM Q28D 01/05/21 diclofenac sodium 1 ea TOPICAL DAILY 01/05/21 duloxetine 60 mg PO DAILY 01/05/21 fiber 1 cap PO DAILY 01/05/21 fluticasone propionate 1 spray INTRANASAL DAILY 01/05/21 gabapentin 600 mg PO BID 01/05/21 insulin aspart U-100 [Novolog U-100 Insulin aspart] See Rx Instructions .ROUTE .COMPLEX 01/05/21 lorazepam 0.5 mg PO BID 01/05/21 oxcarbazepine [Trileptal] 300 mg PO QHS 01/05/21 oxybutynin chloride 5 mg PO TID 01/05/21 trazodone 50 mg PO QHS 01/05/21 fenofibrate nanocrystallized 145 mg PO 0800 #0 tab 01/09/21
--- NOTE | 2021-01-09 10:40 | CASEMGMT ---
JACOB faxed orders and negative COVID to [facility]. JACOB arranged for patient to get picked up at 11am via [employer] van. SW notified RN, certified legal secretary specialist, and left a message for Evangelina at [facility]. RN spoke with patient's sister so she is aware he is being discharged today. RN was also in the room with patient so she notified him of bead picker time. Plan:D/c back to [facility] under intermediate level of care. [facility] transported via [employer] [facility]. Mechelle CERVANTES
--- NOTE | 2021-01-09 11:13 | NURSING ---
report called to [facility]
== END 2021-01-09 11:09 | disposition intermediate care facility (04) | DRG 243 ==
LOC: ED 16:39 → PCU 16:41 → ICU 23:11 → PCU 01-08 13:23
PROVIDERS: Family Medicine; Hospitalist; Emergency Provider Emergency Medicine; PCP Family Medicine; Visit Provider Internal Medicine
DX: I49.5 Sick sinus syndrome (principal); I44.2 Atrioventricular block, complete; N17.9 Acute kidney failure, unspecified; I48.0 Paroxysmal atrial fibrillation; R55 Syncope and collapse; E86.0 Dehydration; I25.10 Atherosclerotic heart disease of native coronary artery without angina pectoris; I25.2 Old myocardial infarction; I12.9 Hypertensive chronic kidney disease with stage 1 through stage 4 chronic kidney disease, or unspecified chronic kidney disease; E11.22 Type 2 diabetes mellitus with diabetic chronic kidney disease; N18.32 Chronic kidney disease, stage 3b; E11.40 Type 2 diabetes mellitus with diabetic neuropathy, unspecified; E78.00 Pure hypercholesterolemia, unspecified; E03.9 Hypothyroidism, unspecified; F25.9 Schizoaffective disorder, unspecified; F31.9 Bipolar disorder, unspecified; F41.9 Anxiety disorder, unspecified; K59.00 Constipation, unspecified; S00.01XA Abrasion of scalp, initial encounter; W18.39XA Other fall on same level, initial encounter; M54.50 Low back pain, unspecified; M54.6 Pain in thoracic spine; M19.90 Unspecified osteoarthritis, unspecified site; Z95.0 Presence of cardiac pacemaker; Z95.5 Presence of coronary angioplasty implant and graft; Z79.82 Long term (current) use of aspirin; Z79.4 Long term (current) use of insulin; Z79.02 Long term (current) use of antithrombotics/antiplatelets; Z79.890 Hormone replacement therapy; Z79.899 Other long term (current) drug therapy; Z87.820 Personal history of traumatic brain injury; Z23 Encounter for immunization
CPT/HCPCS: 33208; 36415; 70450; 71045; 71047; 72070; 72100; 72125; 80048; 81001; 82962; 83735; 84484; 85025; 85027; 87426; 93005; 97162; 97166; 97530; 99152; 99153; 99285; G0008; J7030; J7050; 90686; A4216; C1894

== ENCOUNTER → 2021-03-01 13:56 | Outpatient (CLI) | payer MEDICARE, MEDICAID, SELFPAY ==
[2020-12-26 13:29] VITALS: BMI 31.8
[2021-03-01 15:35] LABS: Absolute Lymphocyte Count 1.26 X10^3/uL (0.83-4.51); Absolute Neutrophil Count 5.3 X10^3/uL (2.0-7.7); Basophil# 0.04 X10^3/uL; Basophil% 0.5 % (0-1); Eosinophil# 0.23 X10^3/uL; Hematocrit 36.1 % (40-54); Hemoglobin 11.5 g/dL (13.0-16.5); Lymphocyte # 1.26 X10^3/ul (0.83-4.51); Lymphocyte % 16.3 % (19-41); Mean Corp Hgb Conc 31.9 g/dL (32-36); Mean Corpuscular Hgb 29.3 pg (27.0-32.0); Mean Corpuscular Volume 91.9 fL (80-94); Mean Platelet Vol. 10.6 fl (6.2-12.0); Monocyte# 0.87 X10^3/uL; Monocyte% 11.3 % (0-10); NRBC Flagged by Analyzer 0 % (0-5); Neutrophil # 5.29 X10^3/uL (2.7-7.7); Neutrophil % 68.5 % (47-70); Platelet Count 328 K/mm3 (150-450); RBC Distribution Width CV 13.6 % (11.6-14.6); RBC Distribution Width SD 45.9 fl (35.1-43.9); Red Blood Count 3.93 M/mm3 (4.6-6.2); White Blood Count 7.7 K/mm3 (4.4-11.0)
[2021-03-01 16:17] LABS: Anion Gap 7 (5-15); BUN 40 mg/dL (7-18); BUN/Creat Ratio 13.6 RATIO (10-20); Calcium,Total 10.3 mg/dL (8.5-10.1); Chloride 104 mmol/L (98-107); Creatinine, Serum 2.95 mg/dL (0.70-1.30); EST Glomerular Filtration Rate 22 mL/min (>60); Est Glom Filt Rate - Afr Amer 27 mL/min (>60); Glucose 80 mg/dL (74-106); Potassium 4.3 mmol/L (3.5-5.1); Sodium Level 139 mmol/L (136-145)
== END ==
PROVIDERS: PCP Family Medicine; Visit Provider Internal Medicine Cardiovascular Disease
DX: E78.00 Pure hypercholesterolemia, unspecified (principal); Z95.0 Presence of cardiac pacemaker; E11.8 Type 2 diabetes mellitus with unspecified complications; Z79.4 Long term (current) use of insulin
CPT/HCPCS: 36415; 80048; 85025; 86141; 87040; 87070; 87077; 87186; 87205

== ENCOUNTER → 2021-03-24 11:20 | Outpatient (REF) | payer MEDICARE, MEDICAID, SELFPAY ==
[2020-12-26 13:29] VITALS: BMI 31.8
[2021-03-24 12:00] LABS: Absolute Lymphocyte Count 1.39 X10^3/uL (0.83-4.51); Absolute Neutrophil Count 3.9 X10^3/uL (2.0-7.7); Basophil# 0.03 X10^3/uL; Basophil% 0.5 % (0-1); Eosinophil# 0.37 X10^3/uL; Eosinophils% 5.8 % (0-5); Hematocrit 35.1 % (40-54); Hemoglobin 11.4 g/dL (13.0-16.5); Lymphocyte # 1.39 X10^3/ul (0.83-4.51); Lymphocyte % 21.8 % (19-41); Mean Corp Hgb Conc 32.5 g/dL (32-36); Mean Corpuscular Hgb 29.6 pg (27.0-32.0); Mean Corpuscular Volume 91.2 fL (80-94); Mean Platelet Vol. 10.5 fl (6.2-12.0); Monocyte# 0.64 X10^3/uL; NRBC Flagged by Analyzer 0 % (0-5); Neutrophil # 3.92 X10^3/uL (2.7-7.7); Neutrophil % 61.4 % (47-70); Platelet Count 297 K/mm3 (150-450); RBC Distribution Width CV 13.5 % (11.6-14.6); RBC Distribution Width SD 45.5 fl (35.1-43.9); Red Blood Count 3.85 M/mm3 (4.6-6.2); White Blood Count 6.4 K/mm3 (4.4-11.0)
== END ==
LOC: OLS.SW400 11:20
PROVIDERS: PCP Family Medicine; Visit Provider Family Medicine
DX: R05.9 Cough, unspecified (principal); R06.2 Wheezing
CPT/HCPCS: 36415; 85025

== ENCOUNTER → 2021-03-29 04:00 | Outpatient (REF) | payer MEDICARE, MEDICAID, SELFPAY ==
[2020-12-26 13:29] VITALS: BMI 31.8
[2021-03-29 07:50] LABS: Hematocrit 37.4 % (40-54); Hemoglobin 11.9 g/dL (13.0-16.5); Mean Corp Hgb Conc 31.8 g/dL (32-36); Mean Corpuscular Hgb 28.9 pg (27.0-32.0); Mean Corpuscular Volume 90.8 fL (80-94); Mean Platelet Vol. 10.2 fl (6.2-12.0); Platelet Count 320 K/mm3 (150-450); RBC Distribution Width CV 13.4 % (11.6-14.6); RBC Distribution Width SD 44.5 fl (35.1-43.9); Red Blood Count 4.12 M/mm3 (4.6-6.2)
[2021-03-29 08:06] LABS: Hemoglobin A1c 7.2 % (3.8-5.6)
[2021-03-29 08:11] LABS: ALB/GLOB Ratio 0.8 RATIO (0.9-2.4); AST(SGOT) 18 U/L (15-37); Alanine Aminotransfer ALT/SGPT 29 U/L (16-61); Albumin, Serum 3.3 g/dL (3.2-5.0); Alkaline Phosphatase 56 U/L (45-117); Anion Gap 5 (5-15); BUN 41 mg/dL (7-18); BUN/Creat Ratio 13.1 RATIO (10-20); Calcium,Total 10.9 mg/dL (8.5-10.1); Chloride 100 mmol/L (98-107); Creatinine, Serum 3.12 mg/dL (0.70-1.30); EST Glomerular Filtration Rate 21 mL/min (>60); Est Glom Filt Rate - Afr Amer 25 mL/min (>60); Globulin 4.4 g/dL (2.2-4.2); Glucose 85 mg/dL (74-106); Potassium 4.4 mmol/L (3.5-5.1); Protein, Total 7.7 g/dL (6.4-8.2); Sodium Level 136 mmol/L (136-145); Thyroid Stim Hormone (TSH) 0.99 uIU/mL (0.358-3.74)
[2021-04-03 16:52] LABS: Trileptal-Oxcarbazepine 12 ug/mL (10-35)
== END ==
LOC: OLS.SW400 04:00
PROVIDERS: PCP Family Medicine; Referring Provider Family Medicine; Visit Provider Family Medicine
DX: I10 Essential (primary) hypertension (principal); F20.9 Schizophrenia, unspecified; E78.5 Hyperlipidemia, unspecified; E03.9 Hypothyroidism, unspecified
CPT/HCPCS: 36415; 80053; 82542; 83036; 84443; 85027

== ENCOUNTER 2021-04-06 08:27 | Emergency (ER) | payer MEDICARE, MEDICAID, SELFPAY ==
[2020-12-26 13:29] VITALS: BMI 31.8
[2021-04-06 08:29] VITALS: BP 145/85; PULSE 71; RESP 14; TEMP 36.7; O2SAT 92; BMI 31.3
--- NOTE | 2021-04-06 08:34 | EKG12_ITS ---
Test Reason : MEDICAL CLEARANCE Blood Pressure : / mmHG Vent. Rate : 068 BPM Atrial Rate : 068 BPM P-R Int : 204 ms QRS Dur : 092 ms QT Int : 380 ms P-R-T Axes : 029 -33 044 degrees QTc Int : 404 ms Normal sinus rhythm Left axis deviation Low voltage QRS Abnormal ECG Confirmed by TU JASON, NERY ([id number]), news videotape editor VENTURA FINK ([id number]) on 04/09/2021 10:59:34 AM Referred By: ANGEL Confirmed By:NERY MAE MD
--- NOTE | 2021-04-06 08:34 | RAD_ITS ---
STUDY: X-RAY CHEST REASON FOR EXAM: Male, 70 years old. Medical clearance TECHNIQUE: AP and lateral views of the chest. COMPARISON: Comparison is made with prior study dated 01/09/2021. FINDINGS: Mild degree of the right basilar atelectasis. Blunting of the right costophrenic angle. Normal size heart. A left-sided dual-chamber pacemaker is seen. Normal mediastinum and prerna. Normal visualized pulmonary arteries. There is atherosclerotic calcification of the aortic arch with tortuosity. There are diffuse degenerative changes of the visualized thoracic spine. Normal visualized ribs, clavicles, and shoulders. There is no demonstrated abnormality of the visualized soft tissue structures of the upper abdomen. RAD/Chest 1 View (Portable) IMPRESSION: Mild degree of right basilar atelectasis with blunting of the left costophrenic angle. Electronically Signed: James Bean MD at 9:19 EST , Service support ,
[2021-04-06 09:16] LABS: Alcohol, Blood (Medical)-Serum < 3.0 mg/dL
[2021-04-06 09:19] LABS: ALB/GLOB Ratio 0.8 RATIO (0.9-2.4); AST(SGOT) 16 U/L (15-37); Alanine Aminotransfer ALT/SGPT 22 U/L (16-61); Albumin, Serum 3.4 g/dL (3.2-5.0); Alkaline Phosphatase 51 U/L (45-117); Anion Gap 4 (5-15); BUN 46 mg/dL (7-18); BUN/Creat Ratio 15.6 RATIO (10-20); Calcium,Total 9.9 mg/dL (8.5-10.1); Chloride 103 mmol/L (98-107); Creatinine, Serum 2.95 mg/dL (0.70-1.30); EST Glomerular Filtration Rate 22 mL/min (>60); Est Glom Filt Rate - Afr Amer 27 mL/min (>60); Estimated Creatinine Clearance 22.63 ml/min; Globulin 4.2 g/dL (2.2-4.2); Glucose 65 mg/dL (74-106); Potassium 4.1 mmol/L (3.5-5.1); Protein, Total 7.6 g/dL (6.4-8.2); Sodium Level 137 mmol/L (136-145)
[2021-04-06 10:59] LABS: Bacteria 0 SEEN /hpf (None Seen); Mucous, Urine 0 SEEN /hpf (<or=2+); White Blood Cells 0 SEEN /hpf (0-5)
[2021-04-06 11:02] LABS: Color, Urine Straw (Yellow); Glucose, Dipstick Normal (Normal); Ketone-Dipstick Negative (Negative); Leukocyte Esterase-Dipstick Negative /ul (Negative); Nitrite-Dipstick Negative (Negative); Occult Blood-Urine Negative /ul (Negative); Protein-Dipstick 30 mg/dl (Negative); Urine Bilirubin Dipstick Negative (Negative); Urine Clarity Clear (Clear); Urine Urobilinogen Normal (Normal)
[2021-04-06 11:10] LABS: Red Blood Cells-Urine 0-5 SEEN /hpf (0-5); Squamous Epithelial Cells - UA 0-5 SEEN /hpf (0-5)
[2021-04-06 11:12] LABS: Amphetamine Urine VISTA NEGATIVE (<1000 ng/mL); Barbiturate Urine VISTA NEGATIVE (< 200 ng/mL); Benzodiazepine Urine VISTA NEGATIVE (< 200 ng/mL); Cocaine Urine VISTA NEGATIVE (< 300 ng/mL); Ecstacy Urine VISTA NEGATIVE (< 500 ng/mL); Methadone Urine VISTA NEGATIVE (< 300 ng/mL); PCP Urine VISTA NEGATIVE (< 25 ng/mL); THC Urine VISTA NEGATIVE (< 50 ng/mL); Vista UDS pH Range 6
--- NOTE | 2021-04-06 11:26 | EDS_ITS ---
HPI HPI - Psych History of Present Illness Chief Complaint: Mental Health Narrative Narrative: Patient from [facility] for medical clearance to place and psychiatric facility. Apparently the patient became aggressive and has had ongoing problems with aggressiveness. Patient was medicated prior to arrival with something and he does not know what. He is calm. He states he was not being aggressive. He has a history of bipolar disorder, schizoaffective disorder, TBI. [facility] Medical History Accidental acetaminophen overdose Acute kidney injury Anxiety Arthritis Atherosclerotic heart disease of [place] coronary artery without angina pectoris Back problem Bipolar disorder Cataracts, bilateral Complete heart block Depression Diabetes mellitus, type II Essential hypertension Falls GI problem Gout Headache History of ST elevation myocardial infarction (STEMI) (11/19/17) Hyperlipidemia Insomnia Kidney disease Neuropathy Osteoarthritis Paroxysmal atrial fibrillation Partial small bowel obstruction Recurrent UTI Seasonal allergies Sepsis Syncope Traumatic brain injury Home Medications ferrous sulfate 325 mg PO DAILY 04/09/16 [History Last Taken 12/29/18] multivitamin 1 tab PO DAILY 09/07/16 [History Last Taken 12/29/18] aspirin 81 mg tablet,delayed release 81 mg PO QDAY 02/27/17 [History Last Taken 01/05/21] nitroglycerin 0.4 mg sublingual tablet 0.4 mg SUBLINGUAL Q5M PRN 02/27/17 [History Last Taken 12/29/18] amlodipine 10 mg tablet 10 mg PO DAILY 02/03/19 [History Last Taken Unknown] cholecalciferol (vitamin D3) 25 mcg (1,000 unit) capsule 1,000 unit PO DAILY 02/03/19 [History Last Taken Unknown] carvedilol 6.25 mg PO BID 03/25/20 [History Last Taken Unknown] insulin glargine 100 unit/mL (3 mL) subcutaneous pen 32 unit SUBCUT DAILY ml 09/08/20 [History Last Taken Unknown] levothyroxine 112 mcg PO DAILY 09/23/20 [History Last Taken Unknown] Invega Sustenna 234 mg IM Q28D 01/05/21 [History Last Taken Unknown] diclofenac sodium 1 ea TOPICAL DAILY 01/05/21 [History Last Taken Unknown] duloxetine 60 mg PO DAILY 01/05/21 [History Last Taken Unknown] fiber 1 cap PO DAILY 01/05/21 [History Last Taken Unknown] fluticasone propionate 1 spray INTRANASAL DAILY 01/05/21 [History Last Taken Unknown] gabapentin 600 mg PO BID 01/05/21 [History Last Taken Unknown] insulin aspart U-100 [Novolog U-100 Insulin aspart] See Rx Instructions .ROUTE .COMPLEX 01/05/21 [History Last Taken Unknown] lorazepam 0.5 mg PO BID 01/05/21 [History Last Taken Unknown] oxcarbazepine [Trileptal] 300 mg PO QHS 01/05/21 [History Last Taken Unknown] oxybutynin chloride 5 mg PO TID 01/05/21 [History Last Taken Unknown] trazodone 50 mg PO QHS 01/05/21 [History Last Taken Unknown] cefdinir 300 mg capsule 300 mg PO BID #30 cap 03/01/21 [Rx Last Taken Unknown] doxycycline hyclate 100 mg capsule 100 mg PO BID #30 cap 03/01/21 [Rx Last Taken Unknown] fenofibrate micronized 200 mg capsule 200 mg PO DAILY 03/01/21 [History Last Taken Unknown] Allergy/AdvReac Type Severity Reaction Status Date / Time atorvastatin [From Lipitor] Allergy Unknown Verified 04/06/21 08:29 Penicillins Allergy Unknown Verified 04/06/21 08:29 lisinopril AdvReac Unknown unknown Verified 04/06/21 08:29 codeine AdvReac Upset Verified 04/06/21 08:29 Stomach doxycycline AdvReac Other Verified 04/06/21 08:29 nickel AdvReac Rash Verified 04/06/21 08:29 LYCOPEEN AdvReac Other Uncoded 04/06/21 08:29 Family History Father Arthritis Bleeding disorder Heart disease Hypertension Mother Hypertension Surgical History History of coronary artery stent placement (11/19/17) History of permanent cardiac pacemaker placement (01/08/21) Social History Smoking Status: Never smoker alcohol intake: never substance use type: does not use caffeine: Yes ROS ROS ED Constitutional Constitutional ED: Denies chills or fever(s) Eyes Eyes: Denies blurry vision or diplopia ENT ENT ED: Denies rhinorrhea or sore throat Cardiovascular Cardiovascular: Denies chest pain or palpitations Respiratory/Chest Respiratory/Chest: Denies cough, dyspnea or sputum Gastrointestinal Gastrointestinal: Denies abdominal pain, nausea or vomiting Genitourinary Genitourinary ED: Denies dysuria or hematuria Musculoskeletal Musculoskeletal: Denies arthralgias or myalgias Integumentary Denies Abrasions or rash Neurologic Neurologic: Denies headache(s) or paresthesias EXAM Physical Exam Const Vital Signs: 04/06/21 08:29 04/06/21 13:15 Temperature 98.0 F Temperature Source Temporal Pulse Rate 71 67 Respiratory Rate 14 14 Blood Pressure 145/85 H 148/81 H Blood Pressure Mean 105 103 Pulse Ox 92 92 Oxygen Delivery Method Room Air Positive well nourished General Appearance ED: NAD; Negative for pallor HEENT normocephalic and atraumatic Eyes PERRL and EOMs intact bilaterally Resp normal respiratory effort and clear to auscultation bilaterally Cardio Rate: regular rate Rhythm: regular rhythm GI non-tender and non-distended Palpation: soft Neuro oriented x3 and CN's II-XII intact bilaterally Sensorium / Orientation: alert Psych Appearance: grossly normal Attitude: calm Skin General Skin Exam: Negative for jaundice or pallor Rashes: no rashes MDM MDM MDM Narrative Medical decision making narrative: Patient evaluated for medical clearance to go to psychiatric facility. He has been home here in the ER. EKG on my interpretation is sinus rhythm at 68 bpm without sign of ischemic change. CBC and CMP at baseline. EtOH and urine drug screen negative. Chest x-ray on my interpretation shows basilar atelectasis. Radiologist does note there is slight blunting of the left costophrenic angle. Patient medically cleared at this time. Patient accepted at [facility]. He is been stable throughout his stay. Impression: 1. Aggressive behavior Lab Data Attestation: I reviewed the patient's lab results. Labs: Laboratory Results - last 24 hr 04/06/21 04/06/21 04/06/21 08:45 08:45 08:45 WBC 7.5 RBC 3.99 L Hgb 11.7 L Hct 36.1 L MCV 90.5 MCH 29.3 MCHC 32.4 RDW Std Deviation 45.4 H RDW Coeff of Shashank 13.6 Plt Count 339 MPV 9.9 Immature Gran % (Auto) 0.300 Neut % (Auto) 70.9 H Lymph % (Auto) 13.0 L [place] % (Auto) 11.4 H Eos % (Auto) 3.7 Baso % (Auto) 0.7 Absolute Neuts (auto) 5.3 Absolute Lymphs (auto) 0.97 Nucleated RBC % 0 Sodium 137 Potassium 4.1 Chloride 103 Carbon Dioxide 30.0 Anion Gap 4 L BUN 46 H Creatinine 2.95 H Estim Creat Clear Calc 22.63 Est GFR (MDRD) Af Amer 27 L Est GFR (MDRD) Non-Af 22 L BUN/Creatinine Ratio 15.6 Glucose 65 L Calcium 9.9 Total Bilirubin 0.30 AST 16 ALT 22 Alkaline Phosphatase 51 Total Protein 7.6 Albumin 3.4 Globulin 4.2 Albumin/Globulin Ratio 0.8 L Urine Color Urine Clarity Urine pH Ur Specific [place] Urine Protein Urine Glucose (UA) Urine Ketones Urine Occult Blood Urine Nitrite Urine Bilirubin Urine Urobilinogen Ur Leukocyte Esterase Urine RBC Urine WBC Ur Squamous Epith Cells Urine Bacteria Urine Mucus Urine Opiates Screen Urine Methadone Screen Ur Barbiturates Screen Ur Phencyclidine Scrn Ur Amphetamines Screen U Methamphetamin-MDMA U Benzodiazepines Scrn Urine Cocaine Screen U Cannabinoids Screen Ur Drug Screen Comment Ethyl Alcohol < 3.0 04/06/21 04/06/21 10:45 10:45 WBC RBC Hgb Hct MCV MCH MCHC RDW Std Deviation RDW Coeff of Shashank Plt Count MPV Immature Gran % (Auto) Neut % (Auto) Lymph % (Auto) [place] % (Auto) Eos % (Auto) Baso % (Auto) Absolute Neuts (auto) Absolute Lymphs (auto) Nucleated RBC % Sodium Potassium Chloride Carbon Dioxide Anion Gap BUN Creatinine Estim Creat Clear Calc Est GFR (MDRD) Af Amer Est GFR (MDRD) Non-Af BUN/Creatinine Ratio Glucose Calcium Total Bilirubin AST ALT Alkaline Phosphatase Total Protein Albumin Globulin Albumin/Globulin Ratio Urine Color Straw Urine Clarity Clear Urine pH 7.0 Ur Specific [place] 1.010 Urine Protein 30 H Urine Glucose (UA) Normal Urine Ketones Negative Urine Occult Blood Negative Urine Nitrite Negative Urine Bilirubin Negative Urine Urobilinogen Normal Ur Leukocyte Esterase Negative Urine RBC 0-5 SEEN Urine WBC 0 SEEN Ur Squamous Epith Cells 0-5 SEEN Urine Bacteria 0 SEEN Urine Mucus 0 SEEN Urine Opiates Screen NEGATIVE Urine Methadone Screen NEGATIVE Ur Barbiturates Screen NEGATIVE Ur Phencyclidine Scrn NEGATIVE Ur Amphetamines Screen NEGATIVE U Methamphetamin-MDMA NEGATIVE U Benzodiazepines Scrn NEGATIVE Urine Cocaine Screen NEGATIVE U Cannabinoids Screen NEGATIVE Ur Drug Screen Comment Ethyl Alcohol Radiography Diagnostic Testing: Clinical Impression(s) from Imaging Studies Chest X-Ray 04/06/21 08:34 IMPRESSION: Mild degree of right basilar atelectasis with blunting of the left costophrenic angle. Electronically Signed: James Bean MD at 9:19 EST , Service support , Discharge Plan Triage Chief Complaint: Mental Health ED Provider: Barrera Booker Dx/Rx/DC Orders Prescriptions: No Action aspirin 81 mg tablet,delayed release (DR/EC) 81 mg PO QDAY RF: 0 Hold Instructions: Resume on 01/22/21. nitroglycerin [Nitrostat] 0.4 mg tablet, sublingual 0.4 mg SUBLINGUAL Q5M PRN (Reason: CHEST PAIN) RF: 0 amlodipine 10 mg tablet 10 mg PO DAILY RF: 0 cholecalciferol (vitamin D3) 1,000 unit capsule 1,000 unit PO DAILY RF: 0 insulin glargine 100 unit/mL (3 mL) insulin pen 32 unit subcut DAILY RF: 0 fenofibrate micronized 200 mg capsule 200 mg PO DAILY RF: 0 doxycycline hyclate 100 mg capsule 100 mg PO BID Qty: 30 RF: 0 cefdinir 300 mg capsule 300 mg PO BID Qty: 30 RF: 0 ferrous sulfate 325 MG tablet 325 mg PO DAILY RF: 0 multivitamin 1 EACH tablet 1 tab PO DAILY RF: 0 carvedilol 6.25 MG tablet 6.25 mg PO BID RF: 0 levothyroxine 112 mcg tablet 112 mcg PO DAILY RF: 0 gabapentin 600 mg Tablet 600 mg PO BID RF: 0 trazodone 50 mg Tablet 50 mg PO QHS RF: 0 oxcarbazepine [Trileptal] 300 mg Tablet 300 mg PO QHS RF: 0 lorazepam 0.5 mg Tablet 0.5 mg PO BID RF: 0 insulin aspart U-100 [Novolog U-100 Insulin aspart] 100 unit/mL Solution See Rx Instructions .ROUTE .COMPLEX RF: 0 oxybutynin chloride 5 mg Tablet 5 mg PO TID RF: 0 fluticasone propionate 50 mcg/actuation [place],Suspension 1 spray INTRANASAL DAILY RF: 0 fiber Capsule 1 cap PO DAILY RF: 0 duloxetine 60 mg Capsule,Delayed Release(Dr/Ec) 60 mg PO DAILY RF: 0 diclofenac sodium 1 % Gel 1 ea TOPICAL DAILY RF: 0 Invega Sustenna 234 mg/1.5 mL Syringe 234 mg IM Q28D RF: 0 Primary Care Provider: Issa Trinidad Referrals: Issa Trinidad MD [Primary Care Provider] -
[2021-04-06 11:44] LABS: Absolute Lymphocyte Count 0.97 X10^3/uL (0.83-4.51); Absolute Neutrophil Count 5.3 X10^3/uL (2.0-7.7); Basophil# 0.05 X10^3/uL; Basophil% 0.7 % (0-1); Eosinophil# 0.28 X10^3/uL; Eosinophils% 3.7 % (0-5); Hematocrit 36.1 % (40-54); Hemoglobin 11.7 g/dL (13.0-16.5); Lymphocyte # 0.97 X10^3/ul (0.83-4.51); Mean Corp Hgb Conc 32.4 g/dL (32-36); Mean Corpuscular Hgb 29.3 pg (27.0-32.0); Mean Corpuscular Volume 90.5 fL (80-94); Mean Platelet Vol. 9.9 fl (6.2-12.0); Monocyte# 0.85 X10^3/uL; Monocyte% 11.4 % (0-10); NRBC Flagged by Analyzer 0 % (0-5); Neutrophil % 70.9 % (47-70); Platelet Count 339 K/mm3 (150-450); RBC Distribution Width CV 13.6 % (11.6-14.6); RBC Distribution Width SD 45.4 fl (35.1-43.9); Red Blood Count 3.99 M/mm3 (4.6-6.2); White Blood Count 7.5 K/mm3 (4.4-11.0)
--- NOTE | 2021-04-06 12:02 | CM.ED ---
SOCIAL WORK Patient from [facility]. Spoke with Dulce at [facility] who reports faxed over referral to [facility]. [facility] has requested medical clearance. Chart faxed to [facility] for placement. Pending acceptance at this time. Tami Monroy, INFORMATION SYSTEMS PLANNER, TELEVISION ANTENNA INSTALLER
--- NOTE | 2021-04-06 12:45 | CM.ED ---
SOCIAL WORK Patient has been accepted to [facility] by Dr. Regalado. Nurse to call report to [phone]. [place] to set up transport. Tami Monroy, MAIL MESSENGER, JOURNALISM TEACHER
[2021-04-06 13:15] VITALS: BP 148/81; PULSE 67; RESP 14; O2SAT 92
--- NOTE | 2021-04-06 15:36 | CM.ED ---
Squad here for patient. [place] notified. Tami Monroy, HEAVY TRUCK TECHNICIAN, ELECTRICAL LINE WORKER
== END 2021-04-06 15:35 ==
LOC: ED 09:37
PROVIDERS: Emergency Provider Student in an Organized Health Care Education/Training Program; PCP Family Medicine; Visit Provider Student in an Organized Health Care Education/Training Program
DX: R45.6 Violent behavior (principal); F31.9 Bipolar disorder, unspecified; E11.40 Type 2 diabetes mellitus with diabetic neuropathy, unspecified; I48.0 Paroxysmal atrial fibrillation; Z79.4 Long term (current) use of insulin; I25.10 Atherosclerotic heart disease of native coronary artery without angina pectoris; I10 Essential (primary) hypertension; I25.2 Old myocardial infarction; Z95.5 Presence of coronary angioplasty implant and graft; Z95.2 Presence of prosthetic heart valve; Z79.899 Other long term (current) drug therapy
CPT/HCPCS: 71045; 80048; 80053; 80307; 81001; 82077; 85025; 87426; 93005; 99285

== ENCOUNTER → 2021-10-19 | Outpatient (REF) | payer MEDICARE, MEDICAID, SELFPAY ==
[2020-12-26 13:29] VITALS: BMI 31.8
[2021-10-19 09:04] LABS: Hematocrit 38.2 % (40-54); Hemoglobin 12.4 g/dL (13.0-16.5); Mean Corp Hgb Conc 32.5 g/dL (32-36); Mean Corpuscular Hgb 30.8 pg (27.0-32.0); Mean Corpuscular Volume 94.8 fL (80-94); Mean Platelet Vol. 10.4 fl (6.2-12.0); Platelet Count 331 K/mm3 (150-450); RBC Distribution Width CV 12.9 % (11.6-14.6); RBC Distribution Width SD 44.7 fl (35.1-43.9); Red Blood Count 4.03 M/mm3 (4.6-6.2); White Blood Count 6.4 K/mm3 (4.4-11.0)
[2021-10-19 09:31] LABS: Hemoglobin A1c 7.6 % (3.8-5.6)
[2021-10-19 09:47] LABS: ALB/GLOB Ratio 0.8 RATIO (0.9-2.4); AST(SGOT) 16 U/L (15-37); Alanine Aminotransfer ALT/SGPT 24 U/L (16-61); Albumin, Serum 3.3 g/dL (3.2-5.0); Alkaline Phosphatase 57 U/L (45-117); Anion Gap 6 (5-15); BUN 42 mg/dL (7-18); BUN/Creat Ratio 13.6 RATIO (10-20); Calcium,Total 9.6 mg/dL (8.5-10.1); Chloride 102 mmol/L (98-107); Cholesterol 167 mg/dL (200); Creatinine, Serum 3.08 mg/dL (0.70-1.30); EST Glomerular Filtration Rate 21 mL/min (>60); Est Glom Filt Rate - Afr Amer 26 mL/min (>60); Globulin 4.3 g/dL (2.2-4.2); Glucose 139 mg/dL (74-106); High Density Lipoprotein 42 mg/dL; Potassium 4.5 mmol/L (3.5-5.1); Protein, Total 7.6 g/dL (6.4-8.2); Sodium Level 137 mmol/L (136-145); Thyroid Stim Hormone (TSH) 0.76 uIU/mL (0.358-3.74); Triglycerides 126 mg/dL; Very Low Density Lipoprotein 25 mg/dL (5-40)
== END | disposition home or self-care (01) ==
LOC: OLS.SW400 05:00
PROVIDERS: PCP Family Medicine; Visit Provider Family Medicine
DX: I12.9 Hypertensive chronic kidney disease with stage 1 through stage 4 chronic kidney disease, or unspecified chronic kidney disease (principal); E44.0 Moderate protein-calorie malnutrition; E11.22 Type 2 diabetes mellitus with diabetic chronic kidney disease; N18.9 Chronic kidney disease, unspecified; I87.2 Venous insufficiency (chronic) (peripheral); D64.9 Anemia, unspecified; E03.9 Hypothyroidism, unspecified
CPT/HCPCS: 36415; 80053; 80061; 83036; 84443; 85027

== ENCOUNTER 2021-12-10 14:53 | Inpatient (IN) | payer MEDICARE, MEDICAID, SELFPAY ==
[2020-12-26 13:29] VITALS: BMI 31.8
[2021-12-10] VITALS (10 sets, daily range): BP systolic 141–174; BP diastolic 72–97; PULSE 64–87; RESP 15–22; TEMP 36.4–36.7; O2SAT 87–97; BMI 33.2; BMI 31.1
--- NOTE | 2021-12-10 15:42 | EKG12_ITS ---
Test Reason : ABD PAIN Blood Pressure : / mmHG Vent. Rate : 065 BPM Atrial Rate : 065 BPM P-R Int : 202 ms QRS Dur : 098 ms QT Int : 380 ms P-R-T Axes : 042 -31 061 degrees QTc Int : 395 ms Normal sinus rhythm Left axis deviation Low voltage QRS Poor R wave progression Abnormal ECG Confirmed by TU JASON, NERY ([id number]), editor index VENTURA FINK ([id number]) on 12/12/2021 10:59:21 AM Referred By: CHRIS Confirmed By:NERY MAE MD
--- NOTE | 2021-12-10 15:45 | EX.ED.DYSGE1 ---
HPI History of Present Illness Chief Complaint: Shortness of Breath Detail of Chief Complaint: Dyspnea, hypoxia, edema Informant: patient and family Onset/Context/Timing Onset: Hours (Patient placed on oxygen today.) and Days (Cough has been present for some time.) Context: Sudden Onset Timing: Continuous Quality: Dyspnea Location: Respiratory Current Severity: Mild Maximum Severity: Moderate Worsened by: Nothing specific Relieved by: Oxygen Associated Symptoms Associated Symptoms: Nonproductive cough, weight gain, edema, hoarse voice Narrative Narrative: Patient is a 71-year-old male with history of schizoaffective affective disorder, type 2 diabetes, hypothyroidism, atrial fibrillation with recent placement of pacemaker, depression and anxiety. Patient was sent from nursing facility because of hypoxia. Patient does not normally wear oxygen. He has a cough which is nonproductive. He denies documented or subjective fever. He denies headache. He denies ocular, visual or auditory symptoms. He denies sore throat. He does endorse change in his voice. He attributes this to talking more than normal. He does endorse orthopnea. He denies PND. He denies chest discomfort. He denies abdominal pain, nausea, vomiting or diarrhea. He denies urologic symptoms. He does have a rash. He states his doctor prescribed him something for the rash. Prior similar symptoms: No Recent Illness/Hospitalization: No (He has been in the nursing facility since October 2020) [facility] Medical History Accidental acetaminophen overdose Acute kidney injury Anxiety Arthritis Atherosclerotic heart disease of [place] coronary artery without angina pectoris Back problem Bipolar disorder Cataracts, bilateral Chronic kidney disease Complete heart block Depression Diabetes mellitus, type II Essential hypertension Falls GI problem Gout Headache History of ST elevation myocardial infarction (STEMI) (11/19/17) Hyperlipidemia Insomnia Kidney disease Neuropathy Osteoarthritis Paroxysmal atrial fibrillation Partial small bowel obstruction Recurrent UTI Schizoaffective disorder Seasonal allergies Sepsis Syncope Traumatic brain injury Home Medications multivitamin 1 tab PO DAILY vitamin 09/07/16 [History Last Taken 12/10/21] aspirin 81 mg tablet,delayed release 81 mg PO QDAY heart health 02/27/17 [History Last Taken 12/10/21] nitroglycerin 0.4 mg sublingual tablet (Nitrostat) 0.4 mg sublingual Q5M PRN CHEST PAIN 02/27/17 [History Last Taken 12/29/18] amlodipine 10 mg tablet 10 mg PO DAILY hypertension 02/03/19 [History Last Taken 12/10/21] cholecalciferol (vitamin D3) 25 mcg (1,000 unit) capsule 1,000 unit PO DAILY supplement 02/03/19 [History Last Taken 12/10/21] carvedilol 6.25 mg tablet 6.25 mg PO BID heart rate/blood pressure 03/25/20 [History Last Taken 12/10/21] insulin glargine 100 unit/mL (3 mL) subcutaneous pen 32 unit subcut DAILY diabetes 09/08/20 [History Last Taken 12/10/21] levothyroxine 112 mcg tablet 112 mcg PO DAILY hypothyroidism 09/23/20 [History Last Taken 12/10/21] duloxetine 60 mg capsule,delayed release 60 mg PO BID depression 01/05/21 [History Last Taken 12/10/21] gabapentin 600 mg tablet 600 mg PO BID pain 01/05/21 [History Last Taken 12/10/21] lorazepam 0.5 mg tablet 0.5 mg PO QHS anxiety 01/05/21 [History Last Taken 12/09/21] oxcarbazepine 300 mg tablet (Trileptal) 300 mg PO BID schizoeffective disorder 01/05/21 [History Last Taken 12/10/21] paliperidone palmitate 234 mg/1.5 mL intramuscular syringe (Invega Sustenna) 234 mg IM Q28D schizophrenia 01/05/21 [History Last Taken 11/29/21] trazodone 50 mg tablet 50 mg PO QHS insomnia 01/05/21 [History Last Taken 12/09/21] fenofibrate micronized 200 mg capsule 200 mg PO DAILY 03/01/21 [History Last Taken 12/10/21] acetaminophen 500 mg tablet 1,000 mg PO TID PAIN 12/10/21 [History Last Taken 12/10/21] albuterol sulfate 90 mcg/actuation aerosol inhaler (Ventolin HFA) 2 puff inhalation Q4H PRN Cough 12/10/21 [History Last Taken 12/10/21] calcium polycarbophil 625 mg tablet (Fiber-Tabs) 625 mg PO DAILY 12/10/21 [History Last Taken 12/10/21] guaifenesin 100 mg/5 mL oral liquid 200 mg PO Q4H PRN Cough 12/10/21 [History Last Taken 12/10/21] guaifenesin 600 mg tablet, extended release 12 hr (Mucinex) 600 mg PO BID CONGESTION 12/10/21 [History Last Taken 12/10/21] hydroxyzine HCl 25 mg tablet 25 mg PO DAILY PRN PANIC ATTACKS 12/10/21 [History Last Taken 12/09/21] insulin lispro 100 unit/mL subcutaneous solution (Humalog U-100 Insulin) See Protocol subcut TID 12/10/21 [History Last Taken 12/10/21] lamotrigine 100 mg tablet 100 mg PO DAILY MOOD 12/10/21 [History Last Taken 12/10/21] loratadine 10 mg tablet 10 mg PO DAILY 12/10/21 [History Last Taken 12/10/21] oxcarbazepine 150 mg tablet 150 mg PO BID BIPOLAR 12/10/21 [History Last Taken 12/10/21] risperidone 1 mg tablet 1 mg PO BID 12/10/21 [History Last Taken 12/10/21] triamcinolone acetonide 0.1 % topical cream 1 applic topical Q12H PRN Rash 12/10/21 [History Last Taken 12/03/21] Allergy/AdvReac Type Severity Reaction Status Date / Time atorvastatin [From Lipitor] Allergy Unknown Verified 12/10/21 15:07 Penicillins Allergy Unknown Verified 12/10/21 15:07 lisinopril AdvReac Unknown unknown Verified 12/10/21 15:07 codeine AdvReac Upset Verified 12/10/21 15:07 Stomach doxycycline AdvReac Other Verified 12/10/21 15:07 nickel AdvReac Rash Verified 12/10/21 15:07 LYCOPEEN AdvReac Other Uncoded 12/10/21 15:07 Family History Father Arthritis Bleeding disorder Heart disease Hypertension Mother Hypertension Surgical History History of coronary artery stent placement (11/19/17) History of permanent cardiac pacemaker placement (01/08/21) Social History (Updated 12/10/21 @ 15:[address] Geoff Velasquez MD) household members: none housing: [facility] Smoking Status: Never smoker alcohol intake: never substance use type: does not use caffeine: Yes ROS ROS ED Constitutional Constitutional ED: Reports other Details: Weight gain per patient and sister ; Denies chills, fever(s), subjective, sweats or weight loss Eyes Eyes: Denies blurry vision, change in vision or diplopia ENT ENT ED: Reports other Details: Hoarse voice. ; Denies ear pain, rhinorrhea or sore throat Cardiovascular Cardiovascular: Reports orthopnea; Denies chest pain, palpitations, paroxysmal nocturnal dyspnea or racing heartbeat Respiratory/Chest Respiratory/Chest: Reports cough, dyspnea and orthopnea; Denies paroxysmal nocturnal dyspnea Gastrointestinal Gastrointestinal: Denies abdominal pain, diarrhea, melena, nausea or vomiting Genitourinary Genitourinary ED: Denies dysuria, hematuria or urinary frequency Musculoskeletal Musculoskeletal: Denies arthralgias, back pain or myalgias Integumentary Reports rash; Denies abscess or Abrasions Neurologic Neurologic: Reports weakness; Denies headache(s) or paresthesias Psychiatric Psychiatric: Reports anxiety and depression Endocrine Endocrinology: Denies cold intolerance or heat intolerance Hematologic/Lymphatic Hematologic/Lymphatic: Denies easy bleeding, easy bruising or lymphadenopathy EXAM Physical Exam Const Vital Signs: 12/10/21 14:55 12/10/21 15:05 12/10/21 15:06 Temperature 97.5 F L 97.5 F L Temperature Source Oral Oral Pulse Rate 69 69 Respiratory Rate 16 16 Respiratory Effort Normal Non-Labored Respiratory Depth Normal Respiratory Pattern Normal Blood Pressure 150/72 H 150/72 H Blood Pressure Mean 98 98 Pulse Ox 87 87 Oxygen Delivery Method Room Air Room Air Nasal Cannula Oxygen Flow Rate (L/min) 2 12/10/21 17:05 12/10/21 17:00 12/10/21 19:00 Temperature 97.5 F L Temperature Source Oral Pulse Rate 64 64 78 Respiratory Rate 16 16 22 H Respiratory Effort Respiratory Depth Respiratory Pattern Blood Pressure 161/90 H 161/90 H 141/80 H Blood Pressure Mean 113 113 100 Pulse Ox 93 93 92 Oxygen Delivery Method Nasal Cannula Nasal Cannula Nasal Cannula Oxygen Flow Rate (L/min) 2 2 2 Positive well nourished, well developed, obese and unkempt; Negative for cachectic or contractures Constitutional Narrative: Patient has cyanosis to his lips even though the pulse ox is reading 91% with a good waveform. General Appearance ED: unkempt, well developed, cyanotic and NAD; Negative for cachectic, contractures, diaphoretic or pallor Nutritional Appearance: obese; Negative for cachectic HEENT Reports dry mucous membranes HEENT Narrative: Head is atraumatic normocephalic. Ears normal. Nares patent. Uvula midline. No deviation of tongue with protrusion. There is no erythema or exudate of the posterior pharynx. Patient does have dysphonia. Mouth ED: Yes dry mucous membranes Mouth: dry mucous membranes Eyes PERRL and EOMs intact bilaterally General Eye ED: Negative for pale conjunctiva or scleral icterus Neck no lymphadenopathy, supple and no JVD Neck Narrative: Trachea is midline. There is no inspiratory expiratory stridor. There is no carotid bruits noted. Chest Wall inspection of chest normal and palpation of chest normal Resp normal respiratory effort and No clear to auscultation bilaterally Effort and Inspection: Negative for retractions Auscultation: rales left base and wheezes expiratory wheezes (Wheezing noted throughout with increased expiratory phase.) Cardio regular rate, regular rhythm, S1 normal heart sound, S2 normal heart sound and no murmurs GI normal to inspection, nondistended, normoactive bowel sounds, non-tender, non-distended and no masses; Negative for hepatosplenomegaly Back/Spine no CVA tenderness Cervical Spine: Negative for cervical spine tenderness Thoracic Spine / Upper Back: Negative for thoracic spinal tenderness Lumbar Spine / Lower Back: Negative for lumbar spinal tenderness Extremity Extremity Narrative: There is evidence of venous stasis dermatitis. Patient does have pitting edema of 4 mm bilaterally. General Extremety ED: Yes edema General Extremity: edema Neuro oriented x3, CN's II-XII intact bilaterally and no sensory deficits noted Neuro Narrative: Gait was not tested. Sensorium / Orientation: alert Motor Exam: strength 5/5 throughout Psych Psych Narrative: Affect and mood are depressed. Appearance: unkempt Skin Skin Narrative: Venous stasis dermatitis of the right and left leg General Skin Exam: Negative for jaundice or pallor MDM MDM MDM Narrative Medical decision making narrative: Patient presents with hypoxia. He has expiratory wheezing. This may represent pneumonia, congestive heart failure, unlikely PE. EF work-up for heart failure and or pneumonia are negative will pursue imaging to evaluate for PE. CBC was obtained assess white count as well as rule out anemia. Competence of metabolic panel was obtained to assess for any endorgan injury since infectious etiology is in the differential. Lab Data Attestation: I reviewed the patient's lab results. Lab results narrative: White count is normal. Patient is anemic. H&H is unchanged from prior. Basic metabolic panel reveals significant chronic renal failure with a GFR of 20. Lactate is normal. Troponin is normal. BNP is slightly elevated 115. Labs: Laboratory Results - last 24 hr 12/10/21 12/10/21 12/10/21 16:00 16:00 16:00 WBC 5.3 RBC 3.75 L Hgb 11.2 L Hct 35.5 L MCV 94.7 H MCH 29.9 MCHC 31.5 L RDW Std Deviation 46.5 H RDW Coeff of Shashank 13.5 Plt Count 274 MPV 9.7 Immature Gran % (Auto) 0.400 Neut % (Auto) 48.7 Lymph % (Auto) 21.5 [place] % (Auto) 20.6 H Eos % (Auto) 8.2 H Baso % (Auto) 0.6 Absolute Neuts (auto) 2.6 Absolute Lymphs (auto) 1.15 Nucleated RBC % 0 Sodium 136 Potassium 4.7 Chloride 99 Carbon Dioxide 30.0 Anion Gap 7 BUN 57 H Creatinine 3.29 H Estim Creat Clear Calc 19.35 Est GFR (MDRD) Af Amer 24 L Est GFR (MDRD) Non-Af 20 L BUN/Creatinine Ratio 17.3 Glucose 198 H Lactic Acid 0.8 Calcium 10.0 Total Bilirubin 0.20 AST 20 ALT 26 Alkaline Phosphatase 62 Troponin I High Sens 11 B-Natriuretic Peptide Total Protein 7.4 Albumin 3.2 Globulin 4.2 Albumin/Globulin Ratio 0.8 L POC Glucose 12/10/21 12/10/21 16:00 16:22 WBC RBC Hgb Hct MCV MCH MCHC RDW Std Deviation RDW Coeff of Shashank Plt Count MPV Immature Gran % (Auto) Neut % (Auto) Lymph % (Auto) [place] % (Auto) Eos % (Auto) Baso % (Auto) Absolute Neuts (auto) Absolute Lymphs (auto) Nucleated RBC % Sodium Potassium Chloride Carbon Dioxide Anion Gap BUN Creatinine Estim Creat Clear Calc Est GFR (MDRD) Af Amer Est GFR (MDRD) Non-Af BUN/Creatinine Ratio Glucose Lactic Acid Calcium Total Bilirubin AST ALT Alkaline Phosphatase Troponin I High Sens B-Natriuretic Peptide 115.5 H Total Protein Albumin Globulin Albumin/Globulin Ratio POC Glucose 176 H Radiography Diagnostic Testing: Clinical Impression(s) from Imaging Studies Chest X-Ray 12/10/21 16:18 IMPRESSION: Poor inspiration with some bibasilar atelectasis. Electronically Signed: Scott Marquez MD at 16:37 EDT , Chest CT 12/10/21 17:54 IMPRESSION: Mild subsegmental atelectasis in both lower lobes. ASHD. Electronically Signed: Chase Wright MD at 19:12 EDT , Single view portable chest ray is suboptimal. The patient is rotated. There is limited inspiratory volume. There may be an infiltrate in the left lower lobe. There is was not noted by the radiologist. He noted bilateral atelectasis. Since patient is not a candidate for CTA because of his creatinine and GFR of 20 and need to explain his hypoxia and I have concerns this may represent pneumonia obtain a CT without contrast to determine if he does or does not have pneumonia. Otherwise would treat for pulmonary embolus. CT does not reveal evidence of CHF, infiltrate or any abnormality would explain his hypoxia. Will start patient on heparin and speak with hospitalist for admission. EKG Initial EKG: Attestation: I personally reviewed and interpreted this EKG as follows: Interpretation: Sinus Rhythm (Normal sinus rhythm rate of 65. [place] to left. NC interval 202 ms. QS duration 98 ms. QT duration 380 ms. There is evidence of low voltage.) Discharge Plan Dx/Rx/DC Orders Clinical Impression: Acute respiratory failure with hypoxia, Diabetes mellitus, type II, Atherosclerotic heart disease of [place] coronary artery without angina pectoris, Schizoaffective disorder, History of permanent cardiac pacemaker placement, Paroxysmal atrial fibrillation, Chronic kidney disease (CKD) stage G3b/A2, moderately decreased glomerular filtration rate (GFR) between 30-44 mL/min/1.73 square meter and albuminuria creatinine ratio between 30-299 mg/g Disposition Disposition: Acute Care Hospital [facility]
[2021-12-10 16:17] LABS: Absolute Lymphocyte Count 1.15 X10^3/uL (0.83-4.51); Absolute Neutrophil Count 2.6 X10^3/uL (2.0-7.7); Basophil# 0.03 X10^3/uL; Basophil% 0.6 % (0-1); Eosinophil# 0.44 X10^3/uL; Eosinophils% 8.2 % (0-5); Hematocrit 35.5 % (40-54); Hemoglobin 11.2 g/dL (13.0-16.5); Lymphocyte # 1.15 X10^3/ul (0.83-4.51); Lymphocyte % 21.5 % (19-41); Mean Corp Hgb Conc 31.5 g/dL (32-36); Mean Corpuscular Hgb 29.9 pg (27.0-32.0); Mean Corpuscular Volume 94.7 fL (80-94); Mean Platelet Vol. 9.7 fl (6.2-12.0); Monocyte% 20.6 % (0-10); NRBC Flagged by Analyzer 0 % (0-5); Neutrophil % 48.7 % (47-70); Platelet Count 274 K/mm3 (150-450); RBC Distribution Width CV 13.5 % (11.6-14.6); RBC Distribution Width SD 46.5 fl (35.1-43.9); Red Blood Count 3.75 M/mm3 (4.6-6.2); White Blood Count 5.3 K/mm3 (4.4-11.0)
--- NOTE | 2021-12-10 16:18 | RAD_ITS ---
STUDY: X-RAY CHEST REASON FOR EXAM: Male, 71 years old. hypoxia TECHNIQUE: Single AP portable view of the chest. COMPARISON: 04/06/2021 FINDINGS: Left subclavian pacemaker which is unchanged. Poor inspiration with some bibasilar atelectasis There is no demonstrated pleural abnormality. There is moderate cardiac enlargement. Normal mediastinum and prerna. Normal visualized pulmonary arteries. Normal visualized aortic arch and descending thoracic aorta. Normal visualized thoracic spine. Normal visualized ribs, clavicles, and shoulders. There is no demonstrated abnormality of the visualized soft tissue structures of the upper abdomen. RAD/Chest 1 View (Portable) IMPRESSION: Poor inspiration with some bibasilar atelectasis. Electronically Signed: Scott Marquez MD at 16:37 EDT ,
[2021-12-10 16:33] LABS: ALB/GLOB Ratio 0.8 RATIO (0.9-2.4); AST(SGOT) 20 U/L (15-37); Alanine Aminotransfer ALT/SGPT 26 U/L (16-61); Albumin, Serum 3.2 g/dL (3.2-5.0); Alkaline Phosphatase 62 U/L (45-117); Anion Gap 7 (5-15); BUN 57 mg/dL (7-18); BUN/Creat Ratio 17.3 RATIO (10-20); Chloride 99 mmol/L (98-107); Creatinine, Serum 3.29 mg/dL (0.70-1.30); EST Glomerular Filtration Rate 20 mL/min (>60); Est Glom Filt Rate - Afr Amer 24 mL/min (>60); Estimated Creatinine Clearance 19.35 ml/min; Globulin 4.2 g/dL (2.2-4.2); Glucose 198 mg/dL (74-106); Potassium 4.7 mmol/L (3.5-5.1); Protein, Total 7.4 g/dL (6.4-8.2); Sodium Level 136 mmol/L (136-145); Troponin-I HS 11 pg/mL (3.0-78.0)
[2021-12-10 16:40] LABS: Bedside Glucose 176 mg/dL (74-106)
[2021-12-10 16:48] LABS: BNP,B-Type NATRIURETIC PEPTIDE 115.5 pg/mL (0-100)
[2021-12-10 16:54] LABS: Lactic Acid 0.8 mmol/L (0.4-1.9)
--- NOTE | 2021-12-10 17:54 | CT_ITS ---
INDICATION: Hypoxia, suspected pneumonia not seen on chest x-r EXAMINATION: CT CHEST WITHOUT CONTRAST - CT Chest W/O Contrast Injection TECHNIQUE: Helically acquired images were obtained of the chest. A radiation dose optimization technique was used for this scan. IV Contrast dosage and agent: None. COMPARISON: None. FINDINGS: LUNGS, PLEURA AND LARGE AIRWAYS: Mild subsegmental atelectasis in both lower lobes.. No pleural effusion or thickening. No pneumothorax. THYROID: No thyroid lesions. HEART AND PERICARDIUM: Heart is enlarged.. No pericardial effusion. CORONARY ARTERIES: Coronary artery calcification VESSELS: Atherosclerotic changes of the aorta without evidence for aneurysm MEDIASTINUM AND [place]: No mediastinal or hilar adenopathy. Esophagus is unremarkable. No hiatal hernia. UPPER ABDOMEN: Tiny granulomatous calcifications within the liver. BONES: Dorsal spine demonstrates advanced arthritic changes. CT/Chest without Contrast IMPRESSION: Mild subsegmental atelectasis in both lower lobes. ASHD. Electronically Signed: Chase Wright MD at 19:12 EDT ,
--- NOTE | 2021-12-10 20:08 | HP.PCM_ITS ---
Documented by User: MANSI Santiago 12/10/21 20:20 HPI - General General Date of Admission: 12/10/21 Date of Service: 12/10/21 Chief Complaint: Hypoxia HPI Narrative RENATO NOONAN, is a 71 M who presents with reports of hypoxia at the half-way. Patient states that he has some shortness of breath when laying down but otherwise denies any shortness of breath. Patient has a history of bipolar, diabetes mellitus type 2, hyperlipidemia, hypertension, paroxysmal A. fib, schizoaffective disorder, chronic kidney disease stage IIIb. [facility] Medical History Accidental acetaminophen overdose Acute kidney injury Anxiety Arthritis Atherosclerotic heart disease of [place] coronary artery without angina pectoris Back problem Bipolar disorder Cataracts, bilateral Chronic kidney disease Complete heart block Depression Diabetes mellitus, type II Essential hypertension Falls GI problem Gout Headache History of ST elevation myocardial infarction (STEMI) (11/19/17) Hyperlipidemia Insomnia Kidney disease Neuropathy Osteoarthritis Paroxysmal atrial fibrillation Partial small bowel obstruction Recurrent UTI Schizoaffective disorder Seasonal allergies Sepsis Syncope Traumatic brain injury Home Medications multivitamin 1 tab PO DAILY vitamin 09/07/16 [History Last Taken 12/10/21] aspirin 81 mg tablet,delayed release 81 mg PO QDAY heart health 02/27/17 [History Last Taken 12/10/21] nitroglycerin 0.4 mg sublingual tablet (Nitrostat) 0.4 mg sublingual Q5M PRN CHEST PAIN 02/27/17 [History Last Taken 12/29/18] amlodipine 10 mg tablet 10 mg PO DAILY hypertension 02/03/19 [History Last Taken 12/10/21] cholecalciferol (vitamin D3) 25 mcg (1,000 unit) capsule 1,000 unit PO DAILY supplement 02/03/19 [History Last Taken 12/10/21] carvedilol 6.25 mg tablet 6.25 mg PO BID heart rate/blood pressure 03/25/20 [History Last Taken 12/10/21] insulin glargine 100 unit/mL (3 mL) subcutaneous pen 32 unit subcut DAILY diabetes 09/08/20 [History Last Taken 12/10/21] levothyroxine 112 mcg tablet 112 mcg PO DAILY hypothyroidism 09/23/20 [History Last Taken 12/10/21] duloxetine 60 mg capsule,delayed release 60 mg PO BID depression 01/05/21 [History Last Taken 12/10/21] gabapentin 600 mg tablet 600 mg PO BID pain 01/05/21 [History Last Taken 12/10/21] lorazepam 0.5 mg tablet 0.5 mg PO QHS anxiety 01/05/21 [History Last Taken 12/09/21] oxcarbazepine 300 mg tablet (Trileptal) 300 mg PO BID schizoeffective disorder 01/05/21 [History Last Taken 12/10/21] paliperidone palmitate 234 mg/1.5 mL intramuscular syringe (Invega Sustenna) 234 mg IM Q28D schizophrenia 01/05/21 [History Last Taken 11/29/21] trazodone 50 mg tablet 50 mg PO QHS insomnia 01/05/21 [History Last Taken 12/09/21] fenofibrate micronized 200 mg capsule 200 mg PO DAILY 03/01/21 [History Last Taken 12/10/21] acetaminophen 500 mg tablet 1,000 mg PO TID PAIN 12/10/21 [History Last Taken 12/10/21] albuterol sulfate 90 mcg/actuation aerosol inhaler (Ventolin HFA) 2 puff inhalation Q4H PRN Cough 12/10/21 [History Last Taken 12/10/21] calcium polycarbophil 625 mg tablet (Fiber-Tabs) 625 mg PO DAILY 12/10/21 [History Last Taken 12/10/21] guaifenesin 100 mg/5 mL oral liquid 200 mg PO Q4H PRN Cough 12/10/21 [History Last Taken 12/10/21] guaifenesin 600 mg tablet, extended release 12 hr (Mucinex) 600 mg PO BID CONGESTION 12/10/21 [History Last Taken 12/10/21] hydroxyzine HCl 25 mg tablet 25 mg PO DAILY PRN PANIC ATTACKS 12/10/21 [History Last Taken 12/09/21] insulin lispro 100 unit/mL subcutaneous solution (Humalog U-100 Insulin) See Protocol subcut TID 12/10/21 [History Last Taken 12/10/21] lamotrigine 100 mg tablet 100 mg PO DAILY MOOD 12/10/21 [History Last Taken 12/10/21] loratadine 10 mg tablet 10 mg PO DAILY 12/10/21 [History Last Taken 12/10/21] oxcarbazepine 150 mg tablet 150 mg PO BID BIPOLAR 12/10/21 [History Last Taken 12/10/21] risperidone 1 mg tablet 1 mg PO BID 12/10/21 [History Last Taken 12/10/21] triamcinolone acetonide 0.1 % topical cream 1 applic topical Q12H PRN Rash 12/10/21 [History Last Taken 12/03/21] Allergy/AdvReac Type Severity Reaction Status Date / Time atorvastatin [From Lipitor] Allergy Unknown Verified 12/10/21 15:07 Penicillins Allergy Unknown Verified 12/10/21 15:07 lisinopril AdvReac Unknown unknown Verified 12/10/21 15:07 codeine AdvReac Upset Verified 12/10/21 15:07 Stomach doxycycline AdvReac Other Verified 12/10/21 15:07 lycopene AdvReac Other Verified 12/10/21 21:20 nickel AdvReac Rash Verified 12/10/21 15:07 Family History Father Arthritis Bleeding disorder Heart disease Hypertension Mother Hypertension Surgical History History of coronary artery stent placement (11/19/17) History of permanent cardiac pacemaker placement (01/08/21) Social History household members: none housing: half-way Smoking Status: Never smoker alcohol intake: never substance use type: does not use caffeine: Yes ROS Constitutional Constitutional: Denies anorexia, change in weight, chills, fatigue, fever(s) or malaise Cardiovascular Cardiovascular: Reports orthopnea; Denies chest pain, edema, palpitations or syncope Respiratory/Chest Respiratory/Chest: Reports tachypnea and wheezing; Denies cough Gastrointestinal Gastrointestinal: Denies abdominal pain, constipation, diarrhea, nausea or vomiting Genitourinary Genitourinary: Denies dysuria Musculoskeletal Musculoskeletal: Denies back pain, extremity pain or joint pain Integumentary Integumentary: Denies dry skin Neurologic Neurologic: Denies abnormal gait, abnormal speech, confusion or dizziness Endocrine Endocrinology: Denies change in body appearance Hematologic/Lymphatic Hematologic/Lymphatic: Denies anemia Vital Signs Vital Signs Vital Signs: 12/10/21 14:55 12/10/21 15:05 12/10/21 15:06 Temperature 97.5 F L 97.5 F L Temperature Source Oral Oral Pulse Rate 69 69 Respiratory Rate 16 16 Respiratory Effort Normal Non-Labored Respiratory Depth Normal Respiratory Pattern Normal Blood Pressure 150/72 H 150/72 H Blood Pressure Mean 98 98 Pulse Ox 87 87 Oxygen Delivery Method Room Air Room Air Nasal Cannula Oxygen Flow Rate (L/min) 2 12/10/21 17:05 12/10/21 17:00 12/10/21 19:00 Temperature 97.5 F L Temperature Source Oral Pulse Rate 64 64 78 Respiratory Rate 16 16 22 H Respiratory Effort Respiratory Depth Respiratory Pattern Blood Pressure 161/90 H 161/90 H 141/80 H Blood Pressure Mean 113 113 100 Pulse Ox 93 93 92 Oxygen Delivery Method Nasal Cannula Nasal Cannula Nasal Cannula Oxygen Flow Rate (L/min) 2 2 2 Weight Weight: 224 lb 3.362 oz Body Mass Index (BMI) 33.2 Physical Exam Const alert and oriented x3 General Appearance: cooperative HEENT normocephalic and head/scalp atraumatic Eyes conjunctivae normal and no scleral icterus Neck no lymphadenopathy and supple General: trachea midline Resp normal respiratory effort and normal air movement Effort and Inspection: tachypneic Auscultation: wheezes expiratory wheezes and scattered wheezes Cardio regular rate, regular rhythm, S1 normal heart sound, S2 normal heart sound and peripheral pulses 2+ throughout GI normal to inspection, nondistended, normoactive bowel sounds, soft to palpation and non-tender Extremity normal capillary refill and no clubbing, cyanosis or edema Skin General Skin Exam: no breakdown Lesions: no lesions Rashes: no rashes Neuro no focal motor deficits and no sensory deficits noted Speech: speech normal Psych thought process normal and cooperative Results Lab / Micro Data Result Diagrams: 12/10/21 16:00 12/10/21 16:00 Labs: Laboratory Results - last 24 hr 12/10/21 16:00: WBC 5.3, RBC 3.75 L, Hgb 11.2 L, Hct 35.5 L, MCV 94.7 H, MCH 29.9, MCHC 31.5 L, RDW Std Deviation 46.5 H, RDW Coeff of Shashank 13.5, Plt Count 274, MPV 9.7, Immature Gran % (Auto) 0.400, Neut % (Auto) 48.7, Lymph % (Auto) 21.5, [place] % (Auto) 20.6 H, Eos % (Auto) 8.2 H, Baso % (Auto) 0.6, Absolute Neuts (auto) 2.6, Absolute Lymphs (auto) 1.15, Nucleated RBC % 0 12/10/21 16:00: Sodium 136, Potassium 4.7, Chloride 99, Carbon Dioxide 30.0, Anion Gap 7, BUN 57 H, Creatinine 3.29 H, Estim Creat Clear Calc 19.35, Est GFR (MDRD) Af Amer 24 L, Est GFR (MDRD) Non-Af 20 L, BUN/Creatinine Ratio 17.3, Glucose 198 H, Calcium 10.0, Total Bilirubin 0.20, AST 20, ALT 26, Alkaline Phosphatase 62, Troponin I High Sens 11, Total Protein 7.4, Albumin 3.2, Globulin 4.2, Albumin/Globulin Ratio 0.8 L 12/10/21 16:00: Lactic Acid 0.8 12/10/21 16:00: B-Natriuretic Peptide 115.5 H 12/10/21 16:22: POC Glucose 176 H Micro: Microbiology 12/10/21 16:20 Nasal Secretion SARS-CoV-2 Antigen (Rapid) - Final Radiology Impression Chest X-Ray 12/10/21 16:18 IMPRESSION: Poor inspiration with some bibasilar atelectasis. Electronically Signed: Scott Marquez MD at 16:37 EDT , Chest CT 12/10/21 17:54 IMPRESSION: Mild subsegmental atelectasis in both lower lobes. ASHD. Electronically Signed: Chase Wright MD at 19:12 EDT , Assessment & Plan Assessment/Plan (1) Hypoxia: PLAN: Plan 1. Acute hypoxic respiratory failure, unknown etiology -Admit to PCU -Patient unable to receive CTA of chest due to chronic kidney disease, VQ scan ordered for a.m. -Patient initiated on heparin drip in ER, will continue -Encourage incentive spirometry -As needed albuterol treatments ordered -Elevate bilateral lower extremities -Oxygen per protocol, currently on 2 L nasal cannula. Patient does not wear oxygen at baseline. -PT and OT to eval and treat -CBC, BMP, TSH ordered for a.m. 2. Schizoaffective disorder -Continue patient's home medication regimen including hydroxyzine, lamotrigine, oxcarbazepine, risperidone, duloxetine, gabapentin, lorazepam, trazodone -Patient is also on IM Invega q. 28 days 3. Diabetes mellitus type 2 -ACH S blood sugars with sliding scale insulin ordered -Continue Lantus 4. Hypothyroidism -Continue levothyroxine -TSH in a.m. 5. Hypertension -Continue carvedilol and amlodipine 6. Hyperlipidemia -Continue fenofibrate 7. Chronic kidney disease stage IV -Creatinine 3.29, slightly elevated above baseline -BMP daily DVT prophylaxis-not indicated, patient on heparin drip This patient was seen by MANSI Santiago under the supervision of Dr. Fallon. 30 minutes spent in clinical coordination of patient's plan of care. Documented by User: Dr. Jace Fallon MD 12/11/21 00:50 HPI - General General Date of Admission: 12/10/21 [facility] Medical History Accidental acetaminophen overdose Acute kidney injury Anxiety Arthritis Atherosclerotic heart disease of [place] coronary artery without angina pectoris Back problem Bipolar disorder Cataracts, bilateral Chronic kidney disease Complete heart block Depression Diabetes mellitus, type II Essential hypertension Falls GI problem Gout Headache History of ST elevation myocardial infarction (STEMI) (11/19/17) Hyperlipidemia Insomnia Kidney disease Neuropathy Osteoarthritis Paroxysmal atrial fibrillation Partial small bowel obstruction Recurrent UTI Schizoaffective disorder Seasonal allergies Sepsis Syncope Traumatic brain injury Home Medications multivitamin 1 tab PO DAILY vitamin 09/07/16 [History Last Taken 12/10/21] aspirin 81 mg tablet,delayed release 81 mg PO QDAY heart health 02/27/17 [History Last Taken 12/10/21] nitroglycerin 0.4 mg sublingual tablet (Nitrostat) 0.4 mg sublingual Q5M PRN CHEST PAIN 02/27/17 [History Last Taken 12/29/18] amlodipine 10 mg tablet 10 mg PO DAILY hypertension 02/03/19 [History Last Taken 12/10/21] cholecalciferol (vitamin D3) 25 mcg (1,000 unit) capsule 1,000 unit PO DAILY supplement 02/03/19 [History Last Taken 12/10/21] carvedilol 6.25 mg tablet 6.25 mg PO BID heart rate/blood pressure 03/25/20 [History Last Taken 12/10/21] insulin glargine 100 unit/mL (3 mL) subcutaneous pen 32 unit subcut DAILY diabetes 09/08/20 [History Last Taken 12/10/21] levothyroxine 112 mcg tablet 112 mcg PO DAILY hypothyroidism 09/23/20 [History Last Taken 12/10/21] duloxetine 60 mg capsule,delayed release 60 mg PO BID depression 01/05/21 [History Last Taken 12/10/21] gabapentin 600 mg tablet 600 mg PO BID pain 01/05/21 [History Last Taken 12/10/21] lorazepam 0.5 mg tablet 0.5 mg PO QHS anxiety 01/05/21 [History Last Taken 12/09/21] oxcarbazepine 300 mg tablet (Trileptal) 300 mg PO BID schizoeffective disorder 01/05/21 [History Last Taken 12/10/21] paliperidone palmitate 234 mg/1.5 mL intramuscular syringe (Invega Sustenna) 234 mg IM Q28D schizophrenia 01/05/21 [History Last Taken 11/29/21] trazodone 50 mg tablet 50 mg PO QHS insomnia 01/05/21 [History Last Taken 12/09/21] fenofibrate micronized 200 mg capsule 200 mg PO DAILY 03/01/21 [History Last Taken 12/10/21] acetaminophen 500 mg tablet 1,000 mg PO TID PAIN 12/10/21 [History Last Taken 12/10/21] albuterol sulfate 90 mcg/actuation aerosol inhaler (Ventolin HFA) 2 puff inhalation Q4H PRN Cough 12/10/21 [History Last Taken 12/10/21] calcium polycarbophil 625 mg tablet (Fiber-Tabs) 625 mg PO DAILY 12/10/21 [History Last Taken 12/10/21] guaifenesin 100 mg/5 mL oral liquid 200 mg PO Q4H PRN Cough 12/10/21 [History Last Taken 12/10/21] guaifenesin 600 mg tablet, extended release 12 hr (Mucinex) 600 mg PO BID CONGESTION 12/10/21 [History Last Taken 12/10/21] hydroxyzine HCl 25 mg tablet 25 mg PO DAILY PRN PANIC ATTACKS 12/10/21 [History Last Taken 12/09/21] insulin lispro 100 unit/mL subcutaneous solution (Humalog U-100 Insulin) See Protocol subcut TID 12/10/21 [History Last Taken 12/10/21] lamotrigine 100 mg tablet 100 mg PO DAILY MOOD 12/10/21 [History Last Taken 12/10/21] loratadine 10 mg tablet 10 mg PO DAILY 12/10/21 [History Last Taken 12/10/21] oxcarbazepine 150 mg tablet 150 mg PO BID BIPOLAR 12/10/21 [History Last Taken 12/10/21] risperidone 1 mg tablet 1 mg PO BID 12/10/21 [History Last Taken 12/10/21] triamcinolone acetonide 0.1 % topical cream 1 applic topical Q12H PRN Rash 12/10/21 [History Last Taken 12/03/21] Allergy/AdvReac Type Severity Reaction Status Date / Time atorvastatin [From Lipitor] Allergy Unknown Verified 12/10/21 15:07 Penicillins Allergy Unknown Verified 12/10/21 15:07 lisinopril AdvReac Unknown unknown Verified 12/10/21 15:07 codeine AdvReac Upset Verified 12/10/21 15:07 Stomach doxycycline AdvReac Other Verified 12/10/21 15:07 lycopene AdvReac Other Verified 12/10/21 21:20 nickel AdvReac Rash Verified 12/10/21 15:07 Family History Father Arthritis Bleeding disorder Heart disease Hypertension Mother Hypertension Surgical History History of coronary artery stent placement (11/19/17) History of permanent cardiac pacemaker placement (01/08/21) Social History household members: none housing: half-way Smoking Status: Never smoker alcohol intake: never substance use type: does not use caffeine: Yes Results Lab / Micro Data Result Diagrams: 12/10/21 16:00 12/10/21 16:00 Assessment & Plan Assessment/Plan (1) Hypoxia: PLAN: Plan 1. Acute hypoxic respiratory failure, unknown etiology -Admit to PCU -Patient unable to receive CTA of chest due to chronic kidney disease, VQ scan ordered for a.m. -Patient initiated on heparin drip in ER, will continue -Encourage incentive spirometry -As needed albuterol treatments ordered -Elevate bilateral lower extremities -Oxygen per protocol, currently on 2 L nasal cannula. Patient does not wear oxygen at baseline. -PT and OT to eval and treat -CBC, BMP, TSH ordered for a.m. 2. Schizoaffective disorder -Continue patient's home medication regimen including hydroxyzine, lamotrigine, oxcarbazepine, risperidone, duloxetine, gabapentin, lorazepam, trazodone -Patient is also on IM Invega q. 28 days 3. Diabetes mellitus type 2 -ACH S blood sugars with sliding scale insulin ordered -Continue Lantus 4. Hypothyroidism -Continue levothyroxine -TSH in a.m. 5. Hypertension -Continue carvedilol and amlodipine 6. Hyperlipidemia -Continue fenofibrate 7. Chronic kidney disease stage IV -Creatinine 3.29, slightly elevated above baseline -BMP daily DVT prophylaxis-not indicated, patient on heparin drip This patient was seen by MANSI Santiago under the supervision of Dr. Fallon. 30 minutes spent in clinical coordination of patient's plan of care. Patient seen and examined and agree with above assessment plan
[2021-12-10 20:31] LABS: Prothrombin Time (Protime)PT. 13.1 SECONDS (11.7-14.9)
[2021-12-10 20:33] LABS: Partial Thromboplast Time 29.5 Seconds (24.1-36.2)
[2021-12-10] MEDS: Heparin Injection (Vial) 5,000 UNIT/ML VIAL 7500 UNIT IV (20:37)
[2021-12-10] MEDS: HEPARIN/D5w 25,000 UNITS 25,000 UNITS/250 ML IV.SOLN. 14 UNITS CONT INF (20:38)
[2021-12-10 21:46] LABS: Bedside Glucose 190 mg/dL (74-106)
[2021-12-10] MEDS: RisperiDONE 1 MG Tablet PO (22:08)
[2021-12-10] MEDS: Acetaminophen 500 MG Tablet 1000 MG PO (22:08)
[2021-12-10] MEDS: Insulin Lispro 100 UNIT/ML INSULN.PEN SC (22:09)
[2021-12-10] MEDS: guaiFENesin 600 MG Tablet PO (22:09)
[2021-12-10] MEDS: OXcarbazepine 300 MG Tablet PO (22:09)
[2021-12-10] MEDS: traZODone 50 MG Tablet PO (22:09)
[2021-12-10] MEDS: DULoxetine Hcl 60 MG Capsule PO (22:09)
[2021-12-10] MEDS: OXcarbazepine 150 MG Tablet PO (22:09)
[2021-12-10] MEDS: LORazepam 0.5 MG Tablet PO (22:09)
[2021-12-10] MEDS: guaiFENesin 10 ML UDC (200MG/10ML) PO (22:14)
[2021-12-10] MEDS: Gabapentin 600 MG Tablet PO (22:14)
[2021-12-11] VITALS (11 sets, daily range): BP systolic 111–137; BP diastolic 69–105; PULSE 64–100; RESP 18–20; TEMP 36–37.1; O2SAT 87–95
[2021-12-11 02:37] LABS: Absolute Lymphocyte Count 1.42 X10^3/uL (0.83-4.51); Absolute Neutrophil Count 2.9 X10^3/uL (2.0-7.7); Basophil# 0.02 X10^3/uL; Basophil% 0.3 % (0-1); Eosinophil# 0.48 X10^3/uL; Eosinophils% 8.3 % (0-5); Hematocrit 35.1 % (40-54); Hemoglobin 11.3 g/dL (13.0-16.5); Lymphocyte # 1.42 X10^3/ul (0.83-4.51); Lymphocyte % 24.6 % (19-41); Mean Corp Hgb Conc 32.2 g/dL (32-36); Mean Corpuscular Hgb 30.5 pg (27.0-32.0); Mean Corpuscular Volume 94.9 fL (80-94); Mean Platelet Vol. 9.7 fl (6.2-12.0); Monocyte# 0.92 X10^3/uL; Monocyte% 15.9 % (0-10); NRBC Flagged by Analyzer 0 % (0-5); Neutrophil # 2.91 X10^3/uL (2.7-7.7); Neutrophil % 50.6 % (47-70); Platelet Count 284 K/mm3 (150-450); RBC Distribution Width CV 13.4 % (11.6-14.6); RBC Distribution Width SD 46.9 fl (35.1-43.9); White Blood Count 5.8 K/mm3 (4.4-11.0)
[2021-12-11 03:01] LABS: Anion Gap 5 (5-15); BUN 59 mg/dL (7-18); BUN/Creat Ratio 18.5 RATIO (10-20); Chloride 104 mmol/L (98-107); Creatinine, Serum 3.19 mg/dL (0.70-1.30); EST Glomerular Filtration Rate 20 mL/min (>60); Est Glom Filt Rate - Afr Amer 25 mL/min (>60); Estimated Creatinine Clearance 21.29 ml/min; Glucose 179 mg/dL (74-106); Potassium 4.7 mmol/L (3.5-5.1); Sodium Level 139 mmol/L (136-145); Thyroid Stim Hormone (TSH) 0.86 uIU/mL (0.358-3.74)
[2021-12-11 03:18] LABS: Partial Thromboplast Time 141.6 Seconds (24.1-36.2)
[2021-12-11] MEDS: Levothyroxine 112 MCG Tablet PO (05:32)
[2021-12-11] MEDS: 0.9% Saline Lock 10 ML Syringe IV ×2 (05:32→05:36)
[2021-12-11] MEDS: Acetaminophen 500 MG Tablet 1000 MG PO ×3 (05:32→21:10)
[2021-12-11 07:01] LABS: Bedside Glucose 102 mg/dL (74-106)
--- NOTE | 2021-12-11 07:45 | PCM.PN.HOSP ---
Subjective Subjective Follow-up for mild hypoxia along with generalized weakness, declining functional capacity Patient history is not clear states cough but cannot tell exactly how long. Mildly productive. Objective Data Objective Data Vital Signs: Vital Signs Temp Pulse Resp BP Pulse Ox O2 Del Method O2 Flow Rate 96.8 F L 67 20 H 111/78 92 Nasal Cannula 2 12/11/21 03:15 12/11/21 07:25 12/11/21 03:15 12/11/21 03:15 12/11/21 07:04 12/11/21 07:04 12/11/21 07:04 Oxygen Flow Rate (L/min) 2 Oxygen Delivery Method Nasal Cannula Weight: 216 lb 14.958 oz Body Mass Index (BMI) 31.1 Intake & Output: Intake and Output for Last 24 Hours 12/09/21 12/10/21 12/11/21 23:59 23:59 23:59 Intake Total 353.8 / 353.8 Balance 353.8 / 353.8 Lab / Micro Data Result Diagrams: 12/11/21 02:30 12/11/21 02:30 Labs: Laboratory Results - last 24 hr 12/10/21 16:00: WBC 5.3, RBC 3.75 L, Hgb 11.2 L, Hct 35.5 L, MCV 94.7 H, MCH 29.9, MCHC 31.5 L, RDW Std Deviation 46.5 H, RDW Coeff of Shashank 13.5, Plt Count 274, MPV 9.7, Immature Gran % (Auto) 0.400, Neut % (Auto) 48.7, Lymph % (Auto) 21.5, Wirt % (Auto) 20.6 H, Eos % (Auto) 8.2 H, Baso % (Auto) 0.6, Absolute Neuts (auto) 2.6, Absolute Lymphs (auto) 1.15, Nucleated RBC % 0 12/10/21 16:00: Sodium 136, Potassium 4.7, Chloride 99, Carbon Dioxide 30.0, Anion Gap 7, BUN 57 H, Creatinine 3.29 H, Estim Creat Clear Calc 19.35, Est GFR (MDRD) Af Amer 24 L, Est GFR (MDRD) Non-Af 20 L, BUN/Creatinine Ratio 17.3, Glucose 198 H, Calcium 10.0, Total Bilirubin 0.20, AST 20, ALT 26, Alkaline Phosphatase 62, Troponin I High Sens 11, Total Protein 7.4, Albumin 3.2, Globulin 4.2, Albumin/Globulin Ratio 0.8 L 12/10/21 16:00: Lactic Acid 0.8 12/10/21 16:00: B-Natriuretic Peptide 115.5 H 12/10/21 16:22: POC Glucose 176 H 12/10/21 20:16: PT 13.1, INR 1.0, APTT 29.5 12/10/21 21:27: POC Glucose 190 H 12/11/21 02:30: WBC 5.8, RBC 3.70 L, Hgb 11.3 L, Hct 35.1 L, MCV 94.9 H, MCH 30.5, MCHC 32.2, RDW Std Deviation 46.9 H, RDW Coeff of Shashank 13.4, Plt Count 284, MPV 9.7, Immature Gran % (Auto) 0.300, Neut % (Auto) 50.6, Lymph % (Auto) 24.6, Wirt % (Auto) 15.9 H, Eos % (Auto) 8.3 H, Baso % (Auto) 0.3, Absolute Neuts (auto) 2.9, Absolute Lymphs (auto) 1.42, Nucleated RBC % 0 12/11/21 02:30: Sodium 139, Potassium 4.7, Chloride 104, Carbon Dioxide 30.0, Anion Gap 5, BUN 59 H, Creatinine 3.19 H, Estim Creat Clear Calc 21.29, Est GFR (MDRD) Af Amer 25 L, Est GFR (MDRD) Non-Af 20 L, BUN/Creatinine Ratio 18.5, Glucose 179 H, Calcium 10.0, TSH 0.86 12/11/21 02:30: APTT 141.6 H* 12/11/21 06:34: POC Glucose 102 Micro: Microbiology 12/10/21 16:20 Nasal Secretion SARS-CoV-2 Antigen (Rapid) - Final Radiography Diagnostic Testing: Radiology Impression Chest X-Ray 12/10/21 16:18 IMPRESSION: Poor inspiration with some bibasilar atelectasis. Electronically Signed: Scott Marquez MD at 16:37 EDT , Chest CT 12/10/21 17:54 IMPRESSION: Mild subsegmental atelectasis in both lower lobes. ASHD. Electronically Signed: Chase Wright MD at 19:12 EDT Reading Location ID and State: [facility] / [place] , Service support , Physical Exam Narrative Patient history is tangential. He has cough unclear for how long but he states sometimes few days or several days to few weeks. Denies dysphagia, difficulty in swallowing. History of schizoaffective disorder Physical exam.. General: Alert, Oriented x3, Cooperative HEENT: Atraumatic, PERRLA, EOMI, Normocephalic Oral: No Gingival or Mucosal Lesions/ Ulcerations Neck: Supple, No JVD, Negative Carotid Bruits Lungs: Air entry diminished in bilateral lung bases. Mild bilateral chronic crepitations Cardiovascular: Regular rate, Regular Rhythm, Normal S1, Normal S2, No murmurs Abdomen: Bowel Sounds Present, Soft, Non Tender, Non-Distended : No renal angle tenderness. No suprapubic tenderness. Extremities: No edema, Capillary Refill Less than 3 Seconds Skin: No rashes, No breakdown Musculoskeletal: No Tenderness to Palpation of Joints or Extremities Neurological: Cranial nerves II-XII grossly intact, DTR 2+/4 and Symmetrical, Neuro grossly intact Psych/Mental Status: Flat affect. Assessment & Plan Assessment/Plan (1) Hypoxia: PLAN: Plan 1. Acute hypoxic respiratory failure, unknown etiology -Admit to PCU -Patient unable to receive CTA of chest due to chronic kidney disease, VQ scan was done but not reported. CT chest reviewed and shows mild subsegmental bibasilar atelectasis. No pleural effusion or thickening, consolidation or pneumothorax. Aggressive incentive spirometry. Empirically patient is on IV heparin drip for suspected PE. Modified Wells criteria for PE is 0. Albuterol as needed. Mucinex D is scheduled. Try to wean off the oxygen. PT OT and speech evaluation. 2. Schizoaffective disorder -Continue patient's home medication regimen including hydroxyzine, lamotrigine, oxcarbazepine, risperidone, duloxetine, gabapentin, lorazepam, trazodone -Patient is also on IM Invega q. 28 days. TSH normal. 3. Diabetes mellitus type 2 -Glucoses elevated around 250. Lantus dose titrated up. Continue ACH S blood sugars with sliding scale insulin ordered 4. Hypothyroidism -Continue levothyroxine. TSH normal 5. Hypertension -Continue carvedilol and amlodipine 6. Hyperlipidemia -Continue fenofibrate 7. Chronic kidney disease stage IV -Creatinine 3.29, slightly elevated above baseline Creatinine 3.19, estimated creatinine clearance 21 mL/min -BMP daily, monitor kidney function DVT prophylaxis-not indicated, patient on heparin drip Charges/Coding Visit Charges Inpatient E&M: 46843 Subs Hosp L2
[2021-12-11] MEDS: Carvedilol 6.25 MG Tablet PO ×2 (07:51→16:04)
[2021-12-11] MEDS: hydrOXYzine PAM 25 MG Capsule PO (07:51)
[2021-12-11] MEDS: guaiFENesin 600 MG Tablet PO (07:51)
[2021-12-11] MEDS: lamoTRIgine 100 MG Tablet PO (07:51)
[2021-12-11] MEDS: Multivitamins,Therapeutic Tablet 1 TABLET PO (07:51)
[2021-12-11] MEDS: DULoxetine Hcl 60 MG Capsule PO ×2 (07:52→21:11)
[2021-12-11] MEDS: amLODIPine 10 MG Tablet PO (07:52)
[2021-12-11] MEDS: RisperiDONE 1 MG Tablet PO ×2 (07:52→21:12)
[2021-12-11] MEDS: Cholecalciferol (VIT D3) 25 MCG TABLET (1,000 UNITS) PO (07:52)
[2021-12-11] MEDS: Insulin Glargine-YFGN 100 UNIT/ML Pen 32 UNIT SC (07:54)
[2021-12-11] MEDS: OXcarbazepine 150 MG Tablet PO ×2 (07:54→21:12)
[2021-12-11] MEDS: OXcarbazepine 300 MG Tablet PO ×2 (07:55→21:12)
[2021-12-11] MEDS: Aspirin E.C. 81 MG Tablet PO (07:56)
[2021-12-11] MEDS: Gabapentin 600 MG Tablet PO ×2 (07:59→21:10)
--- NOTE | 2021-12-11 09:05 | CASEMGMT ---
Discharge Scanner Supervisor Judy mayo sent updates to Debra at [facility]. 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 Plan: [facility], When medically ready. Judy Pugh Discharge Scanner Supervisor
--- NOTE | 2021-12-11 10:15 | NM_ITS ---
CLINICAL: 71-year-old male with history of hypoxemia. VENTILATION-PERFUSION LUNG SCINTIGRAPHY COMPARISON: Plain film chest x-ray report dated 12/10/2021 FINDINGS: The patient was administered 54.0 mCi 99m Tc DTPA aerosol. The aerosol ventilation study demonstrates heterogeneous ventilation in the bilateral lung pitt without corresponding x-ray findings demonstrated on plain film chest x-ray report dated 12/10/2021. Central clumping of the aerosol is identified in the bilateral hemithorax. Following the intravenous administration of 5.8 mCi of 99m Tc MAA, the pulmonary perfusion study reveals mildly nonuniform perfusion noted in the left upper-lower lung field without evidence of peripheral wedge-shaped moderate subsegmental or large segmental ventilation-perfusion mismatches. NM/Lung Scan Vent/Perf IMPRESSION: 1. LOW PROBABILITY FOR ACUTE PULMONARY EMBOLUS (<19%) 99m Tc DTPA aerosol ventilation / 99m Tc MAA pulmonary perfusion imaging examination, according to Revised PIOPED and PIOPED II interpretive criteria. (Sotsman et al, Radiology 246: 941, 2008 Sogalo et al, J Nucl Med 49: 1741, 2008). 2. Central clumping of the aerosol is secondary to obstructive airway mechanics and/or clinical tachypnea. Electronically Signed: Scott Thorpe, at 16:18 EDT ,
[2021-12-11] MEDS: Insulin Lispro 100 UNIT/ML INSULN.PEN SC ×3 (11:07→21:12)
[2021-12-11 11:30] LABS: Bedside Glucose 254 mg/dL (74-106)
[2021-12-11 11:48] LABS: Partial Thromboplast Time 30.9 Seconds (24.1-36.2)
--- NOTE | 2021-12-11 11:48 | CASEMGMT ---
SW received a voice mail from patient asking to talk to the Director Of Student Services. SW met with patient. Introduced self and role at [facility]. Patient expressed his frustration with [facility] ([facility]). SW listened and provided emotional support. Lab then came into the room to draw blood. SW then spoke with patient's sister/Healthcare POA, Em. The plan is for patient to return to [facility] at discharge. She expressed some frustration with [facility] as well. SW asked if she would like a list of facilities that accept patient's insurance. She would like one. SW then printed a list a list of [facility] facility providers including quality and resource use data and consistent with patient?s preferred geographic region, medical needs, and insurance network were provided from the [employer] Guide. Mechelle CERVANTES
[2021-12-11] MEDS: Heparin Injection (Vial) 5,000 UNIT/ML VIAL IV (12:12)
--- NOTE | 2021-12-11 14:15 | CASEMGMT ---
Patient has a General Power of Sodium Methylate Operator on file at [facility]. SW spoke with patient's sister and let her know that [facility] does not have copies of patient's Healthcare Power of Sodium Methylate Operator or Healthcare Living Will on file at [facility]. SW asked if she would be able to bring in a copy. Mechelle Chew CABLE TELEVISION TECHNICIAN HELEN
--- NOTE | 2021-12-11 14:43 | CHAPLAIN ---
Type of Pastoral Visit _x__ Initial Visit ___ Follow-up Visit ___ On-call Visit ___ General Patient Visit ___ Spiritual Assessment ___ Family Conference ___ Bereavement ___ Rapid Response ___ Code Blue ___ Other (describe below) Pastoral Care Referral From _x__ Patient ___ Family ___ Nurse ___ Physician ___ Monotype Caster ___ Assistant Women'S Soccer Coach ___ Other (describe below) Sacrament/Intervention _x__ Active listening ___ Anointing ___ Scientology ___ Bereavement ___ Communion _x__ Rahel exploration ___ _x__ Life review _x__ Prayer ___ Reconciliation ___ Sacrament of Sick _x__ Supportive presence ___ Wedding ___ Other (describe below) Pastoral Comments patient had requested spiritual care visit and he also repeated this to his HAMMER FITTER who relayed it to this child day care teacher; pt is very welcoming and begins a long story of life review and current loneliness and frustration having no friends, no one to talk with, not good care at his ECF, not able to go to [facility] or anywhere, mental health issues, not getting workers at ECF to provide the support that he asks for in mental health concerns, etc.; pt speaks of his lost connection with [place] and this child day care teacher offers to notify them of desired visit; pt is often tearful in the conversation; pt expresses gratitude for this child day care teacher taking time to listen and be with him;
--- NOTE | 2021-12-11 15:43 | NURSING ---
pt sitting in recliner. pt requested med for cough. this rn informed pt that he doesn't have anything ordered for his cough and that i text dr asking for something. pt upset. is trying to call the pretzel cooker of the hospital. [facility] rn brandon aware. pt friendly, cooperative with this rn.
[2021-12-11 16:30] LABS: Bedside Glucose 224 mg/dL (74-106)
--- NOTE | 2021-12-11 17:17 | NURSING ---
This RN taking over care of pt at this time.
[2021-12-11] MEDS: LORazepam 0.5 MG Tablet PO (21:10)
[2021-12-11] MEDS: traZODone 50 MG Tablet PO (21:11)
[2021-12-11] MEDS: guaiFENesin/D-Methorphan TAB.SR.12H 1 TABLET PO (21:14)
[2021-12-11 23:25] LABS: Bedside Glucose 184 mg/dL (74-106)
[2021-12-12] VITALS (9 sets, daily range): BP systolic 146–151; BP diastolic 73–80; PULSE 62–71; RESP 16–18; TEMP 36.2–36.7; O2SAT 92–97
[2021-12-12] MEDS: Benzonatate 100 MG Capsule PO ×2 (00:54→17:03)
[2021-12-12] MEDS: Acetaminophen 500 MG Tablet 1000 MG PO ×2 (06:03→15:04)
[2021-12-12] MEDS: Levothyroxine 112 MCG Tablet PO (06:03)
[2021-12-12 07:00] LABS: Bedside Glucose 109 mg/dL (74-106)
[2021-12-12 07:27] LABS: Anion Gap 5 (5-15); BUN 61 mg/dL (7-18); BUN/Creat Ratio 18.9 RATIO (10-20); Calcium,Total 9.4 mg/dL (8.5-10.1); Chloride 106 mmol/L (98-107); Creatinine, Serum 3.22 mg/dL (0.70-1.30); EST Glomerular Filtration Rate 20 mL/min (>60); Est Glom Filt Rate - Afr Amer 24 mL/min (>60); Glucose 119 mg/dL (74-106); Magnesium 2.2 mg/dL (1.6-2.6); Phosphorus 4.4 mg/dL (2.5-4.9); Potassium 5.1 mmol/L (3.5-5.1); Sodium Level 141 mmol/L (136-145)
[2021-12-12] MEDS: Carvedilol 6.25 MG Tablet PO ×2 (09:18→17:03)
[2021-12-12] MEDS: Aspirin E.C. 81 MG Tablet PO (09:18)
[2021-12-12] MEDS: DULoxetine Hcl 60 MG Capsule PO (09:20)
[2021-12-12] MEDS: Loratadine 10 MG Tablet PO (09:20)
[2021-12-12] MEDS: Multivitamins,Therapeutic Tablet 1 TABLET PO (09:20)
[2021-12-12] MEDS: lamoTRIgine 100 MG Tablet PO (09:21)
[2021-12-12] MEDS: guaiFENesin/D-Methorphan TAB.SR.12H 1 TABLET PO (09:22)
[2021-12-12] MEDS: RisperiDONE 1 MG Tablet PO (09:22)
[2021-12-12] MEDS: amLODIPine 10 MG Tablet PO (09:22)
[2021-12-12] MEDS: Cholecalciferol (VIT D3) 25 MCG TABLET (1,000 UNITS) PO (09:24)
[2021-12-12] MEDS: OXcarbazepine 300 MG Tablet PO (09:24)
[2021-12-12] MEDS: OXcarbazepine 150 MG Tablet PO (09:24)
[2021-12-12] MEDS: Heparin Injection (Vial) 5,000 UNIT/ML VIAL 5000 UNIT SC (09:37)
[2021-12-12] MEDS: Gabapentin 600 MG Tablet PO (09:38)
[2021-12-12] MEDS: Senna/Docusate Sodium 1 Tablet PO (09:38)
--- NOTE | 2021-12-12 09:56 | PCM.TXEXTCAR ---
Diet Diet Order/Speech Therapy: 12/10/21 21:11 Diet: Cardiac: Calorie-Controlled Food consistency:: Regular Liquid Consistency:: Regular/Thin Is pt able to select menu?: No Diet Comments: Easy to Chew meats, meds whole in applesauce, Distant supervision How many daily calories?: 1800 calorie Routine Orders/Code Status Suppository Type: Dulcolax 10mg Suppository Frequency: Daily PRN Code Status: Full Code Problem/Diagnosis (1) Hypoxia: Status: Acute Code(s): R09.02 - Hypoxemia Plan DVT prophylaxis-not indicated, patient on heparin drip Allergies/Procedures Done in Hospital Allergies atorvastatin [From Lipitor] Allergy (Verified 12/10/21 15:07) Unknown Penicillins Allergy (Verified 12/10/21 15:07) Unknown lisinopril Adverse Reaction (Unknown, Verified 12/10/21 15:07) unknown codeine Adverse Reaction (Verified 12/10/21 15:07) Upset Stomach doxycycline Adverse Reaction (Verified 12/10/21 15:07) Other lycopene Adverse Reaction (Verified 12/10/21 21:20) Other nickel Adverse Reaction (Verified 12/10/21 15:07) Rash Type of Care/Length of Stay Estimated LOS: More Than 30 Days Type of Care Needed: Intermediate Rehab Potential: Good Prognosis: Good Additional Orders/Day of Discharge Day of Discharge: 12/12/21 Discharge Plan Admission Admit Date/Time: 12/11/21 14:12 Primary Reason for Your Visit: Acute hypoxia Attending Provider: Eusebio Ceballos Primary Care Provider: Issa Trinidad Consulting Providers: Jace Fallon Discharge Orders/Prescriptions Prescriptions: New Mucinex DM 30-600 mg Tablet Extended Release 12 Hr 1 tab PO BID Qty: 14 0RF sennosides-docusate sodium [Stool Softener-Stimulant Laxat] 8.6-50 mg Tablet 1 tab PO BID PRN (Reason: constipation) Qty: 0 0RF Rx Instructions: [id number] Continued aspirin 81 mg tablet,delayed release (DR/EC) 81 mg PO QDAY Hold Instructions: Resume on 01/22/21. nitroglycerin [Nitrostat] 0.4 mg tablet, sublingual 0.4 mg SUBLINGUAL Q5M PRN (Reason: CHEST PAIN) amlodipine 10 mg tablet 10 mg PO DAILY cholecalciferol (vitamin D3) 1,000 unit capsule 1,000 unit PO DAILY fenofibrate micronized 200 mg capsule 200 mg PO DAILY multivitamin 1 EACH tablet 1 tab PO DAILY carvedilol 6.25 MG tablet 6.25 mg PO BID levothyroxine 112 mcg tablet 112 mcg PO DAILY gabapentin 600 mg Tablet 600 mg PO BID trazodone 50 mg Tablet 50 mg PO QHS oxcarbazepine [Trileptal] 300 mg Tablet 300 mg PO BID lorazepam 0.5 mg Tablet 0.5 mg PO QHS duloxetine 60 mg Capsule,Delayed Release(Dr/Ec) 60 mg PO BID Invega Sustenna 234 mg/1.5 mL Syringe 234 mg IM Q28D oxcarbazepine 150 mg tablet 150 mg PO BID acetaminophen 500 mg Tablet 1,000 mg PO TID triamcinolone acetonide 0.1 % cream 1 applic TOPICAL Q12H PRN (Reason: Rash) Rx Instructions: APPLY TOPICALLY NEEDED FOR RASH calcium polycarbophil [Fiber-Tabs] 625 mg Tablet 625 mg PO DAILY hydroxyzine HCl 25 mg tablet 25 mg PO DAILY PRN (Reason: PANIC ATTACKS) insulin lispro [Humalog U-100 Insulin] 100 unit/mL solution See Protocol subcut TID Protocol: 6. Sliding Scale Insulin Custom Condition: mg/dl range Dose/Route: Number of Units Condition: 150-200 Dose/Route: 2 Condition: 201-250 Dose/Route: 4 Condition: 251-300 Dose/Route: 6 Condition: 301-350 Dose/Route: 8 Condition: 351-400 Dose/Route: 10 Condition: 401-450 Dose/Route: 12 Condition: 450> Instruction: CALL MD Protocol Text: Custom Sliding Scale albuterol sulfate [Ventolin HFA] 90 mcg/actuation Hfa Aerosol Inhaler 2 puff INHALATION Q4H PRN (Reason: Cough) risperidone 1 mg tablet 1 mg PO BID lamotrigine 100 mg tablet 100 mg PO DAILY loratadine 10 mg Tablet 10 mg PO DAILY Changed insulin glargine 100 unit/mL (3 mL) insulin pen 38 unit subcut DAILY Qty: 15 0RF Discontinued guaifenesin 100 mg/5 mL Liquid 200 mg PO Q4H PRN (Reason: Cough) guaifenesin [Mucinex] 600 mg Tablet Extended Release 12hr 600 mg PO BID Referrals / Follow Up: Marquise Miranda MD [Med Staff - Consulting] - Within 2 Weeks (CKD stage 4) Issa Trinidad MD [Primary Care Provider] - Within 2 Weeks Disposition Disposition (needs filled in before D/C Order can be placed): NonSkilled NH/Intermed Care
--- NOTE | 2021-12-12 09:57 | DS.PCM_ITS ---
Providers Date of Admission: 12/11/21 Date of Discharge: 12/12/21 Primary Care Physician: Dr. Issa Trinidad MD Reason For Visit: HYPOXIA Diagnosis Discharge Diagnosis (1) Hypoxia: Status: Acute Code(s): R09.02 - Hypoxemia Medications at Discharge Home Medications multivitamin 1 tab PO DAILY vitamin 09/07/16 aspirin 81 mg tablet,delayed release 81 mg PO QDAY heart health 02/27/17 nitroglycerin 0.4 mg sublingual tablet (Nitrostat) 0.4 mg sublingual Q5M PRN CHEST PAIN 02/27/17 amlodipine 10 mg tablet 10 mg PO DAILY hypertension 02/03/19 cholecalciferol (vitamin D3) 25 mcg (1,000 unit) capsule 1,000 unit PO DAILY supplement 02/03/19 carvedilol 6.25 mg tablet 6.25 mg PO BID heart rate/blood pressure 03/25/20 levothyroxine 112 mcg tablet 112 mcg PO DAILY hypothyroidism 09/23/20 duloxetine 60 mg capsule,delayed release 60 mg PO BID depression 01/05/21 gabapentin 600 mg tablet 600 mg PO BID pain 01/05/21 lorazepam 0.5 mg tablet 0.5 mg PO QHS anxiety 01/05/21 oxcarbazepine 300 mg tablet (Trileptal) 300 mg PO BID schizoeffective disorder 01/05/21 paliperidone palmitate 234 mg/1.5 mL intramuscular syringe (Invega Sustenna) 234 mg IM Q28D schizophrenia 01/05/21 trazodone 50 mg tablet 50 mg PO QHS insomnia 01/05/21 fenofibrate micronized 200 mg capsule 200 mg PO DAILY 03/01/21 acetaminophen 500 mg tablet 1,000 mg PO TID PAIN 12/10/21 albuterol sulfate 90 mcg/actuation aerosol inhaler (Ventolin HFA) 2 puff inhalation Q4H PRN Cough 12/10/21 calcium polycarbophil 625 mg tablet (Fiber-Tabs) 625 mg PO DAILY 12/10/21 hydroxyzine HCl 25 mg tablet 25 mg PO DAILY PRN PANIC ATTACKS 12/10/21 insulin lispro 100 unit/mL subcutaneous solution (Humalog U-100 Insulin) See Protocol subcut TID 12/10/21 lamotrigine 100 mg tablet 100 mg PO DAILY MOOD 12/10/21 loratadine 10 mg tablet 10 mg PO DAILY 12/10/21 oxcarbazepine 150 mg tablet 150 mg PO BID BIPOLAR 12/10/21 risperidone 1 mg tablet 1 mg PO BID 12/10/21 triamcinolone acetonide 0.1 % topical cream 1 applic topical Q12H PRN Rash 12/10/21 dextromethorphan-guaifenesin 30 mg-600 mg tablet extended [id number] hr (Mucinex DM) 1 tab PO BID #14 tabs 12/12/21 insulin glargine 100 unit/mL (3 mL) subcutaneous pen 38 unit (0.38 mL) subcut DAILY diabetes #15 mL 12/12/21 sennosides 8.6 mg-docusate sodium 50 mg tablet (Stool Softener-Stimulant Laxative) 1 tab PO BID PRN constipation #0 tabs 12/12/21 Hospital Course Summary of Care Provided Hospital Course: Patient is 71-year-old male with history of schizoaffective disorder admitted with hypoxia and mild shortness of breath on laying down. History of bipolar disorder therefore exact chronological history difficult to obtain. 1. Acute hypoxia, etiology unclear: Acute hypoxic respiratory failure ruled out. Patient was admitted in PCU.Patient unable to receive CTA of chest due to chronic kidney disease, VQ scan was reported low probability of PE. CT chest reviewed and shows mild subsegmental bibasilar atelectasis. No pleural effusion or thickening, consolidation or pneumothorax. Aggressive incentive spirometry. Empirically in the beginning, patient is on IV heparin drip for suspected PE but later on discontinued. Modified Wells criteria for PE is 0. Albuterol as needed. Started on Mucinex D and prescription given. Try to wean off the oxygen. PT OT and speech evaluation was done. Patient supposed to have modified barium swallow and then follow-up with speech therapist in [facility] 2. Schizoaffective disorder -Continue patient's home medication regimen including hydroxyzine, lamotrigine, oxcarbazepine, risperidone, duloxetine, gabapentin, lorazepam, trazodone -Patient is also on IM Invega q. 28 days. TSH normal. 3. Diabetes mellitus type 2 -Glucoses elevated around 250. Lantus dose titrated up. Continue ACH S blood sugars with sliding scale insulin. Lantus dose increased to 38 units subcutaneous daily. Monitor Accu-Cheks and titrate the dose of Lantus accordingly. Might need scheduled prandial insulin depending on Accu-Cheks 4. Hypothyroidism -Continue levothyroxine. TSH normal 5. Hypertension -Continue carvedilol and amlodipine 6. Hyperlipidemia -Continue fenofibrate 7. Chronic kidney disease stage IV -Creatinine 3.29, slightly elevated above baseline Creatinine 3.19, estimated creatinine clearance 21 mL/min. Kidney function remains similar. Outpatient follow-up with sterile supervisor Dr. Miranda. No acute change in the urine output. No dysuria DVT prophylaxis-Heparin drip changed to heparin subcu PT prophylaxis dose. Discharge medication reconciliation done. Discharge follow-up instructions comp leted. Discharge process discussed with the patient and all questions were answered to patient's satisfaction. Patient is in assisted living center, intermediate care. Continue PT and OT and speech therapy evaluation and therapy therapy Total time spent, exact 35 minutes on discharge meds reconciliation, examination, coordination of care with nurses and ancillary staff, review of imaging and blood test and discussion with the patient on follow-up instructions. Microbiology Past 72 Hours 12/12/21 12:05 Nasal Secretion SARS-CoV-2 Antigen (Rapid) - Final 12/10/21 16:20 Nasal Secretion SARS-CoV-2 Antigen (Rapid) - Final Laboratory Results 12/11/21 16:05: POC Glucose 224 H 12/11/21 21:06: POC Glucose 184 H 12/12/21 05:50: Sodium 141, Potassium 5.1, Chloride 106, Carbon Dioxide 30.0, Anion Gap 5, BUN 61 H, Creatinine 3.22 H, Estim Creat Clear Calc 21.10, Est GFR (MDRD) Af Amer 24 L, Est GFR (MDRD) Non-Af 20 L, BUN/Creatinine Ratio 18.9, Glucose 119 H, Calcium 9.4, Phosphorus 4.4, Magnesium 2.2 12/12/21 05:58: POC Glucose 109 H 12/12/21 11:40: POC Glucose 278 H Physical Exam Narrative Seen and examined. Patient states he has cough productive white discolored for 3 weeks. Getting better. Modified barium swallow scheduled for today. History of schizoaffective disorder Physical exam.. General: Alert, Oriented x3, Cooperative HEENT: Atraumatic, PERRLA, EOMI, Normocephalic Oral: No Gingival or Mucosal Lesions/ Ulcerations Neck: Supple, No JVD, Negative Carotid Bruits Lungs: Air entry diminished in bilateral lung bases. Lungs clear. No tachypnea Cardiovascular: Regular rate, Regular Rhythm, Normal S1, Normal S2, No murmurs Abdomen: Bowel Sounds Present, Soft, Non Tender, Non-Distended : No renal angle tenderness. No suprapubic tenderness. Extremities: No edema, Capillary Refill Less than 3 Seconds Skin: No rashes, No breakdown Musculoskeletal: No Tenderness to Palpation of Joints or Extremities Neurological: Cranial nerves II-XII grossly intact, DTR 2+/4 and Symmetrical, Neuro grossly intact Psych/Mental Status: Flat affect. Weight / BMI Weight Weight: 216 lb 14.958 oz Body Mass Index (BMI) 31.1 ABG / Lab / Microbiology Data Result Diagrams: 12/11/21 02:30 12/12/21 05:50 Laboratory: Laboratory Results - last 24 hr 12/11/21 11:05: POC Glucose 254 H 12/11/21 11:25: APTT 30.9 12/11/21 16:05: POC Glucose 224 H 12/11/21 21:06: POC Glucose 184 H 12/12/21 05:50: Sodium 141, Potassium 5.1, Chloride 106, Carbon Dioxide 30.0, Anion Gap 5, BUN 61 H, Creatinine 3.22 H, Estim Creat Clear Calc 21.10, Est GFR (MDRD) Af Amer 24 L, Est GFR (MDRD) Non-Af 20 L, BUN/Creatinine Ratio 18.9, Glucose 119 H, Calcium 9.4, Phosphorus 4.4, Magnesium 2.2 12/12/21 05:58: POC Glucose 109 H Microbiology: Microbiology 12/10/21 16:20 Nasal Secretion SARS-CoV-2 Antigen (Rapid) - Final Radiography Diagnostic Testing: Radiology Impression Lung Scan-VQ NM 12/11/21 10:15 IMPRESSION: 1. LOW PROBABILITY FOR ACUTE PULMONARY EMBOLUS (<19%) 99m Tc DTPA aerosol ventilation / 99m Tc MAA pulmonary perfusion imaging examination, according to Revised PIOPED and PIOPED II interpretive criteria. (Angel et al, Radiology 246: 941, 2008 Angel et al, J Nucl Med 49: 1741, 2008). 2. Central clumping of the aerosol is secondary to obstructive airway mechanics and/or clinical tachypnea. Electronically Signed: Scott Thorpe at 16:18 EDT , Meaningful Use Info Meaningful Use Diagnoses (Choose all that apply): None applicable Discharge Plan Admission Admit Date/Time: 12/11/21 14:12 Primary Reason for Your Visit: Acute hypoxia Attending Provider: Eusebio Ceballos Primary Care Provider: Issa Trinidad Consulting Providers: Jace Fallon Discharge Orders/Prescriptions Prescriptions: New Mucinex DM 30-600 mg Tablet Extended Release 12 Hr 1 tab PO BID Qty: 14 0RF sennosides-docusate sodium [Stool Softener-Stimulant Laxat] 8.6-50 mg Tablet 1 tab PO BID PRN (Reason: constipation) Qty: 0 0RF Rx Instructions: [id number] Continued aspirin 81 mg tablet,delayed release (DR/EC) 81 mg PO QDAY Hold Instructions: Resume on 01/22/21. nitroglycerin [Nitrostat] 0.4 mg tablet, sublingual 0.4 mg SUBLINGUAL Q5M PRN (Reason: CHEST PAIN) amlodipine 10 mg tablet 10 mg PO DAILY cholecalciferol (vitamin D3) 1,000 unit capsule 1,000 unit PO DAILY fenofibrate micronized 200 mg capsule 200 mg PO DAILY multivitamin 1 EACH tablet 1 tab PO DAILY carvedilol 6.25 MG tablet 6.25 mg PO BID levothyroxine 112 mcg tablet 112 mcg PO DAILY gabapentin 600 mg Tablet 600 mg PO BID trazodone 50 mg Tablet 50 mg PO QHS oxcarbazepine [Trileptal] 300 mg Tablet 300 mg PO BID lorazepam 0.5 mg Tablet 0.5 mg PO QHS duloxetine 60 mg Capsule,Delayed Release(Dr/Ec) 60 mg PO BID Invega Sustenna 234 mg/1.5 mL Syringe 234 mg IM Q28D oxcarbazepine 150 mg tablet 150 mg PO BID acetaminophen 500 mg Tablet 1,000 mg PO TID triamcinolone acetonide 0.1 % cream 1 applic TOPICAL Q12H PRN (Reason: Rash) Rx Instructions: APPLY TOPICALLY NEEDED FOR RASH calcium polycarbophil [Fiber-Tabs] 625 mg Tablet 625 mg PO DAILY hydroxyzine HCl 25 mg tablet 25 mg PO DAILY PRN (Reason: PANIC ATTACKS) insulin lispro [Humalog U-100 Insulin] 100 unit/mL solution See Protocol subcut TID Protocol: 6. Sliding Scale Insulin Custom Condition: mg/dl range Dose/Route: Number of Units Condition: 150-200 Dose/Route: 2 Condition: 201-250 Dose/Route: 4 Condition: 251-300 Dose/Route: 6 Condition: 301-350 Dose/Route: 8 Condition: 351-400 Dose/Route: 10 Condition: 401-450 Dose/Route: 12 Condition: 450> Instruction: CALL MD Protocol Text: Custom Sliding Scale albuterol sulfate [Ventolin HFA] 90 mcg/actuation Hfa Aerosol Inhaler 2 puff INHALATION Q4H PRN (Reason: Cough) risperidone 1 mg tablet 1 mg PO BID lamotrigine 100 mg tablet 100 mg PO DAILY loratadine 10 mg Tablet 10 mg PO DAILY Changed insulin glargine 100 unit/mL (3 mL) insulin pen 38 unit subcut DAILY Qty: 15 0RF Discontinued guaifenesin 100 mg/5 mL Liquid 200 mg PO Q4H PRN (Reason: Cough) guaifenesin [Mucinex] 600 mg Tablet Extended Release 12hr 600 mg PO BID Referrals / Follow Up: Marquise Miranda MD [Med Staff - Consulting] - Within 2 Weeks (CKD stage 4) Issa Trinidad MD [Primary Care Provider] - Within 2 Weeks Disposition Disposition (needs filled in before D/C Order can be placed): NonSkilled NH/Intermed Care Charges/Coding Visit Charges Inpatient E&M: 44744 Disch Hosp
--- NOTE | 2021-12-12 10:39 | CASEMGMT ---
JACOB spoke with patient's sister Em this am. JACOB let her know physician plans on discharging patient back to [facility] today. JACOB asked Em if she looked at the list SW gave her of other facilities and if she wanted SW to send a referral anywhere. SW let her know that SW can send the referral and call letting them know the situation. She was appreciative of this. JACOB then called Mary Grace at [place] and let her know about the referral and that patient will be going back to [facility] today. Judy d/c community planning technician faxed referral to [place]. JACOB also spoke with patient letting him know he will be going back to [facility] today after his test at 130. SW let patient know SW spoke with his sister and she asked SW to send a referral to [place]. JACOB let patient know Em is working on getting patient to another facility, but it may take some time. Patient asked if he could talk to the [facility]. JACOB told patient JACOB will call the patient advocate. JACOB called Jesus the patient advocate and he will come and see patient today after patient's procedure at 130. JACOB went back to patient's room and let him know the advocate, Jesus will be up to see him after his 130 test today. Patient thanked JACOB. Plan: d/c back to [facility] under intermediate level of care. Mechelle CERVANTES
[2021-12-12] MEDS: Insulin Glargine-YFGN 100 UNIT/ML Pen 35 UNIT SC (11:43)
[2021-12-12] MEDS: Insulin Lispro 100 UNIT/ML INSULN.PEN SC ×2 (11:44→17:01)
[2021-12-12 12:15] LABS: Bedside Glucose 278 mg/dL (74-106)
[2021-12-12] MEDS: hydrOXYzine PAM 25 MG Capsule PO (15:05)
--- NOTE | 2021-12-12 15:10 | ST.MBS ---
Modified Barium Swallow - Patient Information Study Date: 12/12/21 Study Time: 13:55 Direct Billable Minutes: 105 Total Minutes procedure & reportin Diagnosis: Hypoxia (R09.02) Referring Physician: Eusebio Ceballos Reason for Referral: Objectively assess swallow function, risk for aspiration, and determine recommendations for least restrictive diet textures and compensatory strategies to improve safety of swallow. Medical History: Car Rose is a 71-year-old male who presented to [facility] ED 12/10/2021 with reports of hypoxia at the assisted. Pt has extensive PMH, including bipolar, DM type 2, HLD, HTN, paroxysmal A fib, schizoaffective disorder, CKD stage IIIb, RIVAS, anxiety, falls, GI problem, Hx of STEMI (11/19/17), Sepsis, Syncope, and TBI (SEE H&P for full PMH). Chest X-ray revealed poor inspiration with some bibasilar atelectasis. He has been admitted to be managed for acute hypoxic respiratory failure. BOTTLE LINE WORKER was consulted to assess for concerns for dysphagia and aspiration. BOTTLE LINE WORKER saw at beside and recommended Regular textures w/ Easy to Chew meats / Thin liquids. Due to worsening lung sounds and coughing with oral intake, BOTTLE LINE WORKER recommended MBSS to objectively assess aspiration risk and determine recommendations for compensatory strategies and LRD textures. Current Diet Ordered: Regular w/ Easy to Chew meats / Thin liquids Dentition: Upper Dentures, Lower Dentures Mental Status: WNL - Able to follow commands to participate in evaluation. Pt did require redirection to test. No cognitive-linguistic evaluation was completed during stay. Respiratory Status: Oxygenating on 3L/M nasal cannula - Penetration-Aspiration Scale Penetration-Aspiration Scale: OBJECTIVE ASSESSMENT OF SWALLOW FUNCTION (QUANTITATIVE ? PER TRIAL): PENETRATION / ASPIRATION SCALE (GOODMAN): 1 = does not enter airway 2 = enters airway/above vocal folds/ejected 3 = enters airway/above vocal folds/not ejected 4 = enters airway/contacts vocal folds/ejected 5 = enters airway/contacts vocal folds/not ejected 6 = enters airway/below vocal folds/ejected 7 = enters airway/below vocal folds/not ejected despite effort 8 = enters airway/below vocal folds/no effort VIDEOFLOROSCOPIC SCALE SCORE (GOODMAN): Grade I = aspiration of material that has penetrated into the laryngeal vestibule, intact cough reflex Grade II = aspiration < 10 % of the bolus, intact cough reflex Grade III = aspiration of < 10 % of the bolus, reduced cough reflex or aspiration of > 10 % of the bolus, intact cough reflex Grade IV = aspiration of > 10 % of the bolus, reduced cough reflex - Penetration-Aspiration Scale Score Thin Liquid via teaspoon Result: 1= does not enter airway Thin Liquid via teaspoon Trial 2 Result: 1= does not enter airway Thin Liquid via small single sip from cup Result: 1= does not enter airway Thin Liquid via sequential sips from cup Result: 1= does not enter airway [place] Thick Liquid via small single sip from cup Result: 1= does not enter airway [place] Thick Liquid via small single sip from cup Result: 1= does not enter airway Pudding via teaspoon with esophageal screen Result: 1= does not enter airway Thin Liquid via small single sip from cup with esophageal screen Result: 1= does not enter airway Esophageal screen only of thin liquid wash Comment: No PAS score as fluoroscopy was on esophagus only. Liquid wash was somewhat effective in clearing esophageal retention of pudding. 1/2 Cookie Result: 1= does not enter airway Thin Liquid via single sip from straw Result: 1= does not enter airway - Oral Phase Labial Seal: No Labial Escape Tongue Control During Bolus Hold: Posterior escape of less than half of bolus Bolus Preparation/Mastication: Disorganized chewing/mashing with solid pieces of bolus unchewed Bolus Transport/Lingual Motion: Repetitive/disorganized tongue motion Oral Residue: Residue collection on oral structures - Pharyngeal Phase Initiation of Pharyngeal Swallow: Bolus head in pyriforms - thin by cup 1X Soft Palate Elevation: No bolus between soft palate and pharyngeal wall Laryngeal Elevation: Comp. Superior move thyroid cart w/comp. apprx arytenoid cart-epig pet Anterior Hyoid Excursion: Partial anterior movement Epiglottic Movement: Complete inversion Laryngeal Vestibule Closure at Height of Swallow: None; wide column of air/contrast in laryngeal vestibule Pharyngeal Stripping Wave: Present - complete Pharyngoesophageal Segment Opening: Parital distension and partial duration; parital obstruction of flow Tongue Base Retraction: Trace column of contrast between tongue base & post. pharyngeal wall Pharyngeal Residue: Collection of residue within or on pharyngeal structures - retrograde flow of various contrasts through UES to the pharynx - Esophageal Phase Esophageal Clearance: Esophageal retention w/ retrograde flow through pharyngoesophageal seg - Treatment Strategies Effects of treatment strategies attemped:: Liquid wash = somewhat effective in clearing esophageal retention, not effective in decreasing oral residue. - Diagnosis/Impression Diagnosis: Mild oropharyngeal dysphagia (R13.12), Esophageal dysphagia (R13.14) Impression: The oral phase is primarily marked by... -Decreased bolus control with premature posterior loss of <1/2 of thin liquid bolus to the pyriforms prior to swallow onset on one trial. All other trials only spilled posteriorly to the vallecula prior to swallow onset. -Prolonged, disorganized, and decreased mastication evident with cookie trial. -Min lingual pumping for A-P transport with cookie. The patient was speaking after mastication, but prior to bolus transport. BOTTLE LINE WORKER cued him to swallow cookie. -Collection of oral residue, which did not effectively clear with use of liquid wash. The pharyngeal phase is primarily marked by... -Mildly decreased anterior hyoid excursion. -No laryngeal penetration or aspiration observed during the study. -Collection of pharyngeal residue was observed after the swallow, primarily due to retrograde flow of contrasts through the upper esophageal sphincter to the pyriforms. The esophageal phase is primarily marked by... -Esophageal retention of pudding in mid and lower esophagus with retrograde flow. This esophageal retention mostly cleared with use of 2 thin liquid washes (first liquid wash was a very small sip). -Frequent retrograde flow of various contrasts through the upper esophageal sphincter to the pyriforms, which was mostly observed with thin liquid and cookie trials. -BOTTLE LINE WORKER is concerned for risk for reflux aspiration. - Recommendations Diet: Thin Liquids - Easy to Chew textures (IDDSI Level 7) Compensatory Strategies: Small Bites, Small Sips, Slow Rate, Alternate bites/solids and sips/liquids, Sitting upright, Remain sitting upright for 30 minutes after PO intake, Minimize/decrease distractions Supervision: 1:1 Close Supervision Recommend Repeat Modified Barium Swallow: No Need for Skilled Speech Therapy Services: Yes Comment: Will recommend the patient for continued dysphagia therapy to address deficits in oropharyngeal swallow function. Will recommend the patient for oropharyngeal strengthening to improve lingual strength/coordination, hyoid excursion, and duration of UES opening (CTAR, Joseph, lingual resistance exercises). The patient would benefit from thorough education regarding diet recommendations and recommended compensatory strategies to decrease risk for reflux aspiration. Recommended Referrals: GI Consult Education Completed: 1. Described result of evaluation. - BOTTLE LINE WORKER educated pt and RN in results and recommendations of MBSS via discussion, handouts (one posted in the patient's room, one for his hard chart), and nursing communication note in EMR. Education well received., 7. Pt requires further education on strategies & risks. - Status Active ST Patient: Active - Contact Information [facility] Speech Therapy:: Hedy Hodgson M.A. [facility]-BOTTLE LINE WORKER Speech-Language Pathologist? [place] [id number] [address] [facility] [place]? [place] [address]? [email or web address]? [phone]? 12/12/21 15:12
--- NOTE | 2021-12-12 15:13 | CASEMGMT ---
Discharge Top Cleaner d/c orders and negative covid has been sent via [facility] to [facility]. RN notified all good on this writers end and when sister comes he is good to go. Plan: [facility] Judy Pugh Discharge Top Cleaner
[2021-12-12 17:30] LABS: Bedside Glucose 177 mg/dL (74-106)
--- NOTE | 2021-12-12 18:26 | NURSING ---
Reviewed charting with Fidelina Parham Rn.
== END 2021-12-12 18:21 | disposition intermediate care facility (04) | DRG 206 ==
LOC: ED 19:37 → PCU 20:17
PROVIDERS: Nurse Practitioner Family; Admitting Provider Family Medicine; Emergency Provider Emergency Medicine; PCP Family Medicine; Visit Provider Internal Medicine
DX: R09.02 Hypoxemia (principal); N18.4 Chronic kidney disease, stage 4 (severe); J98.11 Atelectasis; F25.9 Schizoaffective disorder, unspecified; E11.40 Type 2 diabetes mellitus with diabetic neuropathy, unspecified; E11.22 Type 2 diabetes mellitus with diabetic chronic kidney disease; F31.9 Bipolar disorder, unspecified; E11.65 Type 2 diabetes mellitus with hyperglycemia; Z79.4 Long term (current) use of insulin; I48.0 Paroxysmal atrial fibrillation; E03.9 Hypothyroidism, unspecified; I12.9 Hypertensive chronic kidney disease with stage 1 through stage 4 chronic kidney disease, or unspecified chronic kidney disease; F41.9 Anxiety disorder, unspecified; I25.10 Atherosclerotic heart disease of native coronary artery without angina pectoris; E78.5 Hyperlipidemia, unspecified; Z79.82 Long term (current) use of aspirin; R13.12 Dysphagia, oropharyngeal phase; Z95.0 Presence of cardiac pacemaker; R05.9 Cough, unspecified
CPT/HCPCS: 36415; 71045; 71250; 74230; 78582; 80048; 80053; 82962; 83605; 83735; 83880; 84100; 84443; 84484; 85025; 85610; 85730; 87426; 87811; 92526; 92610; 92611; 93005; 97110; 97116; 97162; 97166; 97530; 97535; 99251; 99285; A9540; A9567; A4216; G0463

== ENCOUNTER → 2021-12-14 | Outpatient (REF) | payer MEDICARE, MEDICAID, SELFPAY ==
[2020-12-26 13:29] VITALS: BMI 31.8
[2021-12-14 07:52] LABS: Hematocrit 35.3 % (40-54); Hemoglobin 11.2 g/dL (13.0-16.5); Mean Corp Hgb Conc 31.7 g/dL (32-36); Mean Corpuscular Hgb 30.9 pg (27.0-32.0); Mean Corpuscular Volume 97.5 fL (80-94); Mean Platelet Vol. 10.2 fl (6.2-12.0); Platelet Count 305 K/mm3 (150-450); RBC Distribution Width CV 13.2 % (11.6-14.6); RBC Distribution Width SD 47.7 fl (35.1-43.9); Red Blood Count 3.62 M/mm3 (4.6-6.2)
[2021-12-14 08:08] LABS: ALB/GLOB Ratio 0.7 RATIO (0.9-2.4); AST(SGOT) 24 U/L (15-37); Alanine Aminotransfer ALT/SGPT 32 U/L (16-61); Albumin, Serum 2.8 g/dL (3.2-5.0); Alkaline Phosphatase 59 U/L (45-117); Anion Gap 5 (5-15); BUN 54 mg/dL (7-18); BUN/Creat Ratio 17.5 RATIO (10-20); Calcium,Total 9.4 mg/dL (8.5-10.1); Chloride 106 mmol/L (98-107); Cholesterol 161 mg/dL (200); Creatinine, Serum 3.09 mg/dL (0.70-1.30); EST Glomerular Filtration Rate 21 mL/min (>60); Est Glom Filt Rate - Afr Amer 26 mL/min (>60); Globulin 4.2 g/dL (2.2-4.2); Glucose 109 mg/dL (74-106); High Density Lipoprotein 37 mg/dL; Potassium 5.2 mmol/L (3.5-5.1); Sodium Level 141 mmol/L (136-145); Thyroid Stim Hormone (TSH) 1.26 uIU/mL (0.358-3.74); Triglycerides 126 mg/dL; Very Low Density Lipoprotein 25 mg/dL (5-40)
== END ==
LOC: OLS.SW400 05:00
PROVIDERS: PCP Family Medicine; Visit Provider Family Medicine
DX: E78.5 Hyperlipidemia, unspecified (principal); E03.9 Hypothyroidism, unspecified; D64.9 Anemia, unspecified
CPT/HCPCS: 36415; 80053; 80061; 84443; 85027

== ENCOUNTER → 2022-02-07 | Outpatient (REF) | payer MEDICARE, MEDICAID, SELFPAY ==
[2020-12-26 13:29] VITALS: BMI 31.8
[2022-02-07 09:12] LABS: Hematocrit 36.8 % (40-54); Hemoglobin 11.7 g/dL (13.0-16.5); Mean Corp Hgb Conc 31.8 g/dL (32-36); Mean Corpuscular Hgb 30.3 pg (27.0-32.0); Mean Corpuscular Volume 95.3 fL (80-94); Mean Platelet Vol. 10.6 fl (6.2-12.0); Platelet Count 378 K/mm3 (150-450); RBC Distribution Width CV 13.4 % (11.6-14.6); RBC Distribution Width SD 46.9 fl (35.1-43.9); Red Blood Count 3.86 M/mm3 (4.6-6.2); White Blood Count 9.1 K/mm3 (4.4-11.0)
== END ==
LOC: OLS.SW 07:10
PROVIDERS: PCP Family Medicine; Visit Provider Family Medicine
DX: R50.9 Fever, unspecified (principal); R05.9 Cough, unspecified; J98.8 Other specified respiratory disorders
CPT/HCPCS: 36415; 85027; 86140

== ENCOUNTER → 2022-02-08 | Outpatient (REF) | payer MEDICARE, MEDICAID, SELFPAY ==
[2020-12-26 13:29] VITALS: BMI 31.8
[2022-02-08 09:06] LABS: BNP,B-Type NATRIURETIC PEPTIDE 193.2 pg/mL (0-100)
[2022-02-08 09:13] LABS: Anion Gap 8 (5-15); BUN 46 mg/dL (7-18); BUN/Creat Ratio 14.9 RATIO (10-20); Calcium,Total 10.3 mg/dL (8.5-10.1); Chloride 103 mmol/L (98-107); Creatinine, Serum 3.08 mg/dL (0.70-1.30); EST Glomerular Filtration Rate 21 mL/min (>60); Est Glom Filt Rate - Afr Amer 26 mL/min (>60); Glucose 161 mg/dL (74-106); Sodium Level 138 mmol/L (136-145)
== END ==
LOC: OLS.SW 07:50
PROVIDERS: PCP Family Medicine; Visit Provider Family Medicine
DX: R06.02 Shortness of breath (principal)
CPT/HCPCS: 36415; 80048; 83880

== ENCOUNTER → 2022-03-27 | Outpatient (REF) | payer MEDICARE, MEDICAID, SELFPAY ==
[2020-12-26 13:29] VITALS: BMI 31.8
[2022-03-27 09:08] LABS: Hematocrit 38.5 % (40-54); Hemoglobin 11.8 g/dL (13.0-16.5); Mean Corp Hgb Conc 30.6 g/dL (32-36); Mean Corpuscular Hgb 29.9 pg (27.0-32.0); Mean Corpuscular Volume 97.7 fL (80-94); Mean Platelet Vol. 10.3 fl (6.2-12.0); Platelet Count 348 K/mm3 (150-450); RBC Distribution Width CV 13.3 % (11.6-14.6); RBC Distribution Width SD 47.8 fl (35.1-43.9); Red Blood Count 3.94 M/mm3 (4.6-6.2); White Blood Count 5.8 K/mm3 (4.4-11.0)
[2022-03-27 09:13] LABS: ALB/GLOB Ratio 0.7 RATIO (0.9-2.4); AST(SGOT) 15 U/L (15-37); Alanine Aminotransfer ALT/SGPT 25 U/L (16-61); Albumin, Serum 3.1 g/dL (3.2-5.0); Alkaline Phosphatase 45 U/L (45-117); Anion Gap 5 (5-15); BUN 45 mg/dL (7-18); BUN/Creat Ratio 14.5 RATIO (10-20); Calcium,Total 9.2 mg/dL (8.5-10.1); Chloride 106 mmol/L (98-107); Creatinine, Serum 3.11 mg/dL (0.70-1.30); EST Glomerular Filtration Rate 21 mL/min (>60); Est Glom Filt Rate - Afr Amer 25 mL/min (>60); Globulin 4.2 g/dL (2.2-4.2); Glucose 81 mg/dL (74-106); Potassium 4.4 mmol/L (3.5-5.1); Protein, Total 7.3 g/dL (6.4-8.2); Sodium Level 139 mmol/L (136-145)
== END ==
LOC: OLS.SW 05:00
PROVIDERS: PCP Family Medicine; Visit Provider Family Medicine
DX: E11.9 Type 2 diabetes mellitus without complications (principal)
CPT/HCPCS: 36415; 80053; 82248; 85027

== ENCOUNTER → 2022-06-12 | Outpatient (REF) | payer MEDICARE, MEDICAID, SELFPAY ==
[2020-12-26 13:29] VITALS: BMI 31.8
[2022-06-12 09:44] LABS: Thyroid Stim Hormone (TSH) 1.67 uIU/mL (0.358-3.74)
== END ==
LOC: OLS.SW 05:00
PROVIDERS: PCP Family Medicine; Visit Provider Family Medicine
DX: E11.9 Type 2 diabetes mellitus without complications (principal); E03.9 Hypothyroidism, unspecified
CPT/HCPCS: 36415; 83036; 84443

== ENCOUNTER → 2022-06-14 | Outpatient (REF) | payer MEDICARE, MEDICAID, SELFPAY ==
[2020-12-26 13:29] VITALS: BMI 31.8
[2022-06-14 08:58] LABS: Hematocrit 34.9 % (40-54); Hemoglobin 10.8 g/dL (13.0-16.5); Mean Corp Hgb Conc 30.9 g/dL (32-36); Mean Corpuscular Hgb 30.3 pg (27.0-32.0); Mean Corpuscular Volume 97.8 fL (80-94); Mean Platelet Vol. 10.5 fl (6.2-12.0); Platelet Count 335 K/mm3 (150-450); RBC Distribution Width CV 13.1 % (11.6-14.6); RBC Distribution Width SD 46.7 fl (35.1-43.9); Red Blood Count 3.57 M/mm3 (4.6-6.2); White Blood Count 7.6 K/mm3 (4.4-11.0)
[2022-06-14 09:23] LABS: ALB/GLOB Ratio 0.8 RATIO (0.9-2.4); AST(SGOT) 19 U/L (15-37); Alanine Aminotransfer ALT/SGPT 22 U/L (16-61); Albumin, Serum 3.2 g/dL (3.2-5.0); Alkaline Phosphatase 53 U/L (45-117); Anion Gap 8 (5-15); BUN 56 mg/dL (7-18); BUN/Creat Ratio 16.7 RATIO (10-20); Calcium,Total 10.1 mg/dL (8.5-10.1); Chloride 104 mmol/L (98-107); Cholesterol 153 mg/dL (200); Creatinine, Serum 3.36 mg/dL (0.70-1.30); EST Glomerular Filtration Rate 19 mL/min (>60); Est Glom Filt Rate - Afr Amer 23 mL/min (>60); Globulin 4.2 g/dL (2.2-4.2); Glucose 140 mg/dL (74-106); High Density Lipoprotein 33 mg/dL; Potassium 4.5 mmol/L (3.5-5.1); Protein, Total 7.4 g/dL (6.4-8.2); Sodium Level 139 mmol/L (136-145); Thyroid Stim Hormone (TSH) 1.27 uIU/mL (0.358-3.74); Triglycerides 170 mg/dL; Very Low Density Lipoprotein 34 mg/dL (5-40)
== END ==
LOC: OLS.SW 05:00
PROVIDERS: PCP Family Medicine; Visit Provider Family Medicine
DX: D64.9 Anemia, unspecified (principal); E03.9 Hypothyroidism, unspecified
CPT/HCPCS: 36415; 80053; 80061; 84443; 85027

== ENCOUNTER 2022-08-06 03:33 | Emergency (ER) | payer MEDICARE, MEDICAID, SELFPAY ==
[2020-12-26 13:29] VITALS: BMI 31.8
[2022-08-06 03:33] VITALS: BP 161/80; PULSE 113; RESP 21; TEMP 36.8; O2SAT 90; BMI 32.5
[2022-08-06 03:42] VITALS: O2SAT 91
--- NOTE | 2022-08-06 04:10 | RAD_ITS ---
EXAM: XR CHEST, 1 VIEW CLINICAL INDICATION: dyspnea TECHNIQUE: Frontal view of the chest. COMPARISON: 12/10/2021 FINDINGS: LUNGS AND PLEURAL SPACES: Unremarkable. No consolidation or edema. No pneumothorax. No effusion. HEART: Mild enlargement of the cardiac silhouette. MEDIASTINUM: Central airways and mediastinal contour are unremarkable. BONES/JOINTS: Degenerative changes of the spine. SOFT TISSUES: Unremarkable. TUBES, LINES AND DEVICES: Left chest pacer. RAD/Chest 1 View (Portable) IMPRESSION: No acute findings in the chest. Electronically Signed: Rudy Scherer MD at 4:39 EDT ,
[2022-08-06 04:46] LABS: Absolute Lymphocyte Count 1.07 X10^3/uL (0.83-4.51); Absolute Neutrophil Count 6.9 X10^3/uL (2.0-7.7); Basophil# 0.05 X10^3/uL; Basophil% 0.5 % (0-1); Eosinophil# 0.37 X10^3/uL; Eosinophils% 3.9 % (0-5); Hematocrit 35.5 % (40-54); Hemoglobin 10.8 g/dL (13.0-16.5); Lymphocyte # 1.07 X10^3/ul (0.83-4.51); Lymphocyte % 11.4 % (19-41); Mean Corp Hgb Conc 30.4 g/dL (32-36); Mean Corpuscular Hgb 30.8 pg (27.0-32.0); Mean Corpuscular Volume 101.1 fL (80-94); Mean Platelet Vol. 9.7 fl (6.2-12.0); Monocyte# 0.94 X10^3/uL; NRBC Flagged by Analyzer 0 % (0-5); Neutrophil # 6.89 X10^3/uL (2.7-7.7); Neutrophil % 73.3 % (47-70); Platelet Count 320 K/mm3 (150-450); RBC Distribution Width CV 13.5 % (11.6-14.6); RBC Distribution Width SD 50.3 fl (35.1-43.9); Red Blood Count 3.51 M/mm3 (4.6-6.2); White Blood Count 9.4 K/mm3 (4.4-11.0)
--- NOTE | 2022-08-06 04:48 | EX.ED.DYSGE1 ---
HPI History of Present Illness Chief Complaint: Shortness of Breath Narrative Narrative: Patient is a 71-year-old male with past medical history bipolar disorder schizophrenia chronic kidney disease as well as chronic lung disease requiring 3 L nasal cannula oxygen 14/10. [facility]morning because he would not wear his oxygen and his pulse ox was dropping down in the mid 70. Patient arrives to the ER at his baseline mental status afebrile and in no acute distress. He states that he has no reason why he did not wear his oxygen but otherwise has no complaint [facility] Medical History Accidental acetaminophen overdose Acute kidney injury Anxiety Arthritis Atherosclerotic heart disease of [place] coronary artery without angina pectoris Back problem Bipolar disorder Cataracts, bilateral Chronic kidney disease Chronic kidney disease (CKD) stage G3b/A2, moderately decreased glomerular filtration rate (GFR) between 30-44 mL/min/1.73 square meter and albuminuria creatinine ratio between 30-299 mg/g Complete heart block Depression Diabetes mellitus, type II Essential hypertension Falls GI problem Gout Headache History of ST elevation myocardial infarction (STEMI) (11/19/17) Hyperlipidemia Hypoxia Insomnia Kidney disease Neuropathy Osteoarthritis Paroxysmal atrial fibrillation Partial small bowel obstruction Recurrent UTI Schizoaffective disorder Seasonal allergies Sepsis Syncope Traumatic brain injury Home Medications multivitamin 1 tab PO DAILY vitamin 09/07/16 [History Last Taken 12/10/21] aspirin 81 mg tablet,delayed release 81 mg PO QDAY heart health 02/27/17 [History Last Taken 12/10/21] nitroglycerin 0.4 mg sublingual tablet (Nitrostat) 0.4 mg sublingual Q5M PRN CHEST PAIN 02/27/17 [History Last Taken 12/29/18] amlodipine 10 mg tablet 10 mg PO DAILY hypertension 02/03/19 [History Last Taken 12/10/21] cholecalciferol (vitamin D3) 25 mcg (1,000 unit) capsule 1,000 unit PO DAILY supplement 02/03/19 [History Last Taken 12/10/21] carvedilol 6.25 mg tablet 6.25 mg PO BID heart rate/blood pressure 03/25/20 [History Last Taken 12/10/21] levothyroxine 112 mcg tablet 112 mcg PO DAILY hypothyroidism 09/23/20 [History Last Taken 12/10/21] duloxetine 60 mg capsule,delayed release 60 mg PO BID depression 01/05/21 [History Last Taken 12/10/21] gabapentin 600 mg tablet 600 mg PO BID pain 01/05/21 [History Last Taken 12/10/21] lorazepam 0.5 mg tablet 0.5 mg PO QHS anxiety 01/05/21 [History Last Taken 12/09/21] oxcarbazepine 300 mg tablet (Trileptal) 300 mg PO BID schizoeffective disorder 01/05/21 [History Last Taken 12/10/21] paliperidone palmitate 234 mg/1.5 mL intramuscular syringe (Invega Sustenna) 234 mg IM Q28D schizophrenia 01/05/21 [History Last Taken 11/29/21] trazodone 50 mg tablet 50 mg PO QHS insomnia 01/05/21 [History Last Taken 12/09/21] fenofibrate micronized 200 mg capsule 200 mg PO DAILY 03/01/21 [History Last Taken 12/10/21] acetaminophen 500 mg tablet 1,000 mg PO TID PAIN 12/10/21 [History Last Taken 12/10/21] albuterol sulfate 90 mcg/actuation aerosol inhaler (Ventolin HFA) 2 puff inhalation Q4H PRN Cough 12/10/21 [History Last Taken 12/10/21] calcium polycarbophil 625 mg tablet (Fiber-Tabs) 625 mg PO DAILY 12/10/21 [History Last Taken 12/10/21] insulin lispro 100 unit/mL subcutaneous solution (Humalog U-100 Insulin) See Protocol subcut TID 12/10/21 [History Last Taken 12/10/21] lamotrigine 100 mg tablet 100 mg PO DAILY MOOD 12/10/21 [History Last Taken 12/10/21] loratadine 10 mg tablet 10 mg PO DAILY 12/10/21 [History Last Taken 12/10/21] oxcarbazepine 150 mg tablet 150 mg PO BID BIPOLAR 12/10/21 [History Last Taken 12/10/21] risperidone 1 mg tablet 1 mg PO BID 12/10/21 [History Last Taken 12/10/21] triamcinolone acetonide 0.1 % topical cream 1 applic topical Q12H PRN Rash 12/10/21 [History Last Taken 12/03/21] dextromethorphan-guaifenesin 30 mg-600 mg tablet extended [id number] hr (Mucinex DM) 1 tab PO BID #14 tabs 12/12/21 [Rx Last Taken Unknown] insulin glargine 100 unit/mL (3 mL) subcutaneous pen 38 unit (0.38 mL) subcut DAILY diabetes #15 mL 12/12/21 [Rx Last Taken 12/10/21] sennosides 8.6 mg-docusate sodium 50 mg tablet (Stool Softener-Stimulant Laxative) 1 tab PO BID PRN constipation #0 tabs 12/12/21 [Rx Last Taken Unknown] buspirone 5 mg tablet 5 mg PO TID 08/06/22 [History Last Taken Unknown] cetirizine 10 mg tablet 10 mg PO DAILY 08/06/22 [History Last Taken Unknown] ferrous sulfate 325 mg (65 mg iron) tablet 325 mg PO DAILY 08/06/22 [History Last Taken Unknown] sertraline 100 mg tablet (Zoloft) 100 mg PO DAILY 08/06/22 [History Last Taken Unknown] Allergy/AdvReac Type Severity Reaction Status Date / Time atorvastatin [From Lipitor] Allergy Unknown Verified 12/10/21 15:07 Penicillins Allergy Unknown Verified 12/10/21 15:07 lisinopril AdvReac Unknown unknown Verified 12/10/21 15:07 codeine AdvReac Upset Verified 12/10/21 15:07 Stomach doxycycline AdvReac Other Verified 12/10/21 15:07 lycopene AdvReac Other Verified 12/10/21 21:20 nickel AdvReac Rash Verified 12/10/21 15:07 Family History Father Arthritis Bleeding disorder Heart disease Hypertension Mother Hypertension Surgical History (Updated 08/06/22 @ 07:[address] Daryl Fabian, DO) History of coronary artery stent placement (11/19/17) History of permanent cardiac pacemaker placement (01/08/21) Social History household members: none housing[facility] Smoking Status: Never smoker alcohol intake: never substance use type: does not use caffeine: Yes ROS ROS ED ROS Narrative Please note review of systems may be unreliable secondary to patient's history of schizophrenia bipolar and traumatic brain injury Constitutional Constitutional ED: Denies chills or fever(s) ENT ENT ED: Denies sore throat Cardiovascular Cardiovascular: Denies chest pain Respiratory/Chest Respiratory/Chest: Denies cough or dyspnea Gastrointestinal Gastrointestinal: Denies abdominal pain, diarrhea, nausea or vomiting Genitourinary Genitourinary ED: Denies dysuria Musculoskeletal Musculoskeletal: Denies myalgias Integumentary Denies rash Neurologic Neurologic: Denies headache(s) Hematologic/Lymphatic Hematologic/Lymphatic: Denies easy bleeding or easy bruising EXAM Physical Exam Const Vital Signs: 08/06/22 03:33 08/06/22 03:42 08/06/22 05:33 Temperature 98.2 F Temperature Source Temporal Pulse Rate 113 H 94 Respiratory Rate 21 H 22 H Respiratory Effort Normal Non-Labored Respiratory Depth Normal Respiratory Pattern Normal Blood Pressure 161/80 H 153/98 H Blood Pressure Mean 107 116 Pulse Ox 90 94 Oxygen Delivery Method Nasal Cannula Nasal Cannula Nasal Cannula Oxygen Flow Rate (L/min) 6 3 08/06/22 07:30 08/06/22 07:39 Temperature Temperature Source Pulse Rate 83 102 H Respiratory Rate 27 H 20 H Respiratory Effort Respiratory Depth Respiratory Pattern Blood Pressure 164/76 H 164/76 H Blood Pressure Mean 105 Pulse Ox 95 94 Oxygen Delivery Method Nasal Cannula Oxygen Flow Rate (L/min) 3 Positive well nourished, well developed and obese General Appearance ED: well developed Nutritional Appearance: obese HEENT Reports moist mucous membranes HEENT Narrative: No tongue or lip swelling no oral lesions no airway edema or compromise Eyes PERRL and EOMs intact bilaterally Neck supple and no JVD Chest Wall palpation of chest normal Resp normal respiratory effort Resp Narrative: Breath sounds are diminished throughout but overall clear to auscultation without nasal flaring retractions tachypnea or accessory muscle use Cardio Rate: other Other Details: Irregularly irregular rhythm with regular rate consistent with history of atrial flutter/atrial fibrillation GI normal to inspection, nondistended, normoactive bowel sounds, non-tender, non-distended and no masses GI Narrative: No voluntary guarding or rigidity no pulsatile mass or fluid wave Auscultation: normoactive bowel sounds Palpation: soft Extremity Extremity Narrative: +3 pitting edema to the bilateral lower extremities that is equal and symmetric Neuro CN's II-XII intact bilaterally Neuro Narrative: Patient is at his baseline mental status without focal neurologic finding Sensorium / Orientation: alert Psych Psych Narrative: Patient has a flat affect Skin no rashes or lesions noted MDM MDM MDM Narrative Medical decision making narrative: Patient presented to the ER on his oxygen and pulse ox was 90 to 94% although he was requiring 6 L compared to his baseline of 3. Otherwise he had no complaints and was not in respiratory distress. It was felt that his oxygen level was low at the nursing secondary to the fact he was not wearing it and its been taking him some time to recover based on his chronic medical conditions. I did elect to perform a basic work-up and x-ray showed no acute lung pathology and labs revealed chronic findings near patient's baseline. After patient was kept on oxygen for a few hours his heart rate came down his pulse ox improved to the mid 90s on his normal 3 L and he was able to rest. Therefore do not feel there is any need for further work-up or intervention in the ER and he is safe [facility]. History & Record Review Discussion w/independent historian: EMS personnel Lab Data Attestation: I reviewed the patient's lab results. Labs: Laboratory Results - last 24 hr 08/06/22 08/06/22 08/06/22 04:00 04:00 04:00 WBC Cancelled Corrected WBC Cancelled RBC Cancelled Hgb Cancelled Hct Cancelled MCV Cancelled MCH Cancelled MCHC Cancelled RDW Std Deviation Cancelled RDW Coeff of Shashank Cancelled Plt Count Cancelled MPV Cancelled Immature Gran % (Auto) Cancelled Neut % (Auto) Cancelled Lymph % (Auto) Cancelled Carlton % (Auto) Cancelled Eos % (Auto) Cancelled Baso % (Auto) Cancelled Absolute Neuts (auto) Cancelled Absolute Lymphs (auto) Cancelled Total Counted Cancelled Neutrophils % (Manual) Cancelled Band Neutrophils % Cancelled Lymphocytes % (Manual) Cancelled Monocytes % (Manual) Cancelled Eosinophils % (Manual) Cancelled Basophils % (Manual) Cancelled Metamyelocytes % Cancelled Myelocytes % Cancelled Promyelocytes % Cancelled Blast Cells % Cancelled Plasma Cell % (Manual) Cancelled Other Cells % Cancelled Nucleated RBC % Cancelled Nucleated RBCs/100 WBC Cancelled Differential Comment Cancelled Diff Path Review Cancelled Hypersegmented Neuts Cancelled Atypical Lymphocytes Cancelled Reactive Lymphocytes Cancelled Smudge Cells Cancelled Toxic Granulation Cancelled Toxic Vacuolation Cancelled Dohle Bodies Cancelled Ryder Rods Cancelled Platelet Estimate Cancelled Plt Morphology Comment Cancelled RBC Morphology Cancelled Polychromasia Cancelled Hypochromasia Cancelled Poikilocytosis Cancelled Basophilic Stippling Cancelled Anisocytosis Cancelled Microcytosis Cancelled Macrocytosis Cancelled Spherocytes Cancelled Sickle Cells Cancelled Target Cells Cancelled Tear Drop Cells Cancelled Ovalocytes Cancelled Stomatocytes Cancelled Claudio-[place] Bodies Cancelled Star Cells Cancelled Bite Cells Cancelled Crenated Cell Cancelled Acanthocytes (Spur) Cancelled Rouleaux Cancelled Schistocytes Cancelled Sodium 134 L Potassium 6.5 H* Chloride 103 Carbon Dioxide 26.0 Anion Gap 5 BUN 55 H Creatinine 3.95 H Estim Creat Clear Calc 17.20 Est GFR (MDRD) Af Amer 19 L Est GFR (MDRD) Non-Af 16 L BUN/Creatinine Ratio 13.9 Glucose 162 H Calcium 9.0 Magnesium 2.4 B-Natriuretic Peptide 222.7 H 08/06/22 08/06/22 08/06/22 04:26 05:14 05:40 WBC 9.4 Corrected WBC RBC 3.51 L Hgb 10.8 L Hct 35.5 L MCV 101.1 H MCH 30.8 MCHC 30.4 L RDW Std Deviation 50.3 H RDW Coeff of Shashank 13.5 Plt Count 320 MPV 9.7 Immature Gran % (Auto) 0.900 Neut % (Auto) 73.3 H Lymph % (Auto) 11.4 L [place] % (Auto) 10.0 Eos % (Auto) 3.9 Baso % (Auto) 0.5 Absolute Neuts (auto) 6.9 Absolute Lymphs (auto) 1.07 Total Counted Neutrophils % (Manual) Band Neutrophils % Lymphocytes % (Manual) Monocytes % (Manual) Eosinophils % (Manual) Basophils % (Manual) Metamyelocytes % Myelocytes % Promyelocytes % Blast Cells % Plasma Cell % (Manual) Other Cells % Nucleated RBC % 0 Nucleated RBCs/100 WBC Differential Comment Diff Path Review Hypersegmented Neuts Atypical Lymphocytes Reactive Lymphocytes Smudge Cells Toxic Granulation Toxic Vacuolation Dohle Bodies Ryder Rods Platelet Estimate Plt Morphology Comment RBC Morphology Polychromasia Hypochromasia Poikilocytosis Basophilic Stippling Anisocytosis Microcytosis Macrocytosis Spherocytes Sickle Cells Target Cells Tear Drop Cells Ovalocytes Stomatocytes Claudio-[place] Bodies Star Cells Bite Cells Crenated Cell Acanthocytes (Spur) Rouleaux Schistocytes Sodium Potassium Cancelled 5.4 H Chloride Carbon Dioxide Anion Gap BUN Creatinine Estim Creat Clear Calc Est GFR (MDRD) Af Amer Est GFR (MDRD) Non-Af BUN/Creatinine Ratio Glucose Calcium Magnesium B-Natriuretic Peptide Radiography Diagnostic Testing: Clinical Impression(s) from Imaging Studies Chest X-Ray 08/06/22 04:10 IMPRESSION: No acute findings in the chest. Electronically Signed: Rudy Scherer MD at 4:39 EDT , Chest x-ray as interpreted by the emergency medicine physician reveals no acute infiltrate pneumothorax or pleural effusion Discharge Plan Triage Chief Complaint: Shortness of Breath ED Provider: Daryl Fabian Dx/Rx/DC Orders Clinical Impression: Chronic kidney disease, Dependence on continuous supplemental oxygen, History of coronary artery stent placement, Essential hypertension, Bipolar disorder Instructions: Oxygen Supplemental, ED Chronic Kidney Disease (CKD) Prescriptions: No Action aspirin 81 mg tablet,delayed release (DR/EC) 81 mg PO QDAY Hold Instructions: Resume on 01/22/21. nitroglycerin [Nitrostat] 0.4 mg tablet, sublingual 0.4 mg SUBLINGUAL Q5M PRN (Reason: CHEST PAIN) amlodipine 10 mg tablet 10 mg PO DAILY cholecalciferol (vitamin D3) 1,000 unit capsule 1,000 unit PO DAILY fenofibrate micronized 200 mg capsule 200 mg PO DAILY multivitamin 1 EACH tablet 1 tab PO DAILY carvedilol 6.25 MG tablet 6.25 mg PO BID levothyroxine 112 mcg tablet 112 mcg PO DAILY gabapentin 600 mg Tablet 600 mg PO BID trazodone 50 mg Tablet 50 mg PO QHS oxcarbazepine [Trileptal] 300 mg Tablet 300 mg PO BID lorazepam 0.5 mg Tablet 0.5 mg PO QHS duloxetine 60 mg Capsule,Delayed Release(Dr/Ec) 60 mg PO BID Invega Sustenna 234 mg/1.5 mL Syringe 234 mg IM Q28D oxcarbazepine 150 mg tablet 150 mg PO BID acetaminophen 500 mg Tablet 1,000 mg PO TID triamcinolone acetonide 0.1 % cream 1 applic TOPICAL Q12H PRN (Reason: Rash) Rx Instructions: APPLY TOPICALLY NEEDED FOR RASH calcium polycarbophil [Fiber-Tabs] 625 mg Tablet 625 mg PO DAILY insulin lispro [Humalog U-100 Insulin] 100 unit/mL solution See Protocol subcut TID Protocol: 6. Sliding Scale Insulin Custom Condition: mg/dl range Dose/Route: Number of Units Condition: 150-200 Dose/Route: 2 Condition: 201-250 Dose/Route: 4 Condition: 251-300 Dose/Route: 6 Condition: 301-350 Dose/Route: 8 Condition: 351-400 Dose/Route: 10 Condition: 401-450 Dose/Route: 12 Condition: 450> Instruction: CALL MD Protocol Text: Custom Sliding Scale albuterol sulfate [Ventolin HFA] 90 mcg/actuation Hfa Aerosol Inhaler 2 puff INHALATION Q4H PRN (Reason: Cough) risperidone 1 mg tablet 1 mg PO BID lamotrigine 100 mg tablet 100 mg PO DAILY loratadine 10 mg Tablet 10 mg PO DAILY Mucinex DM 30-600 mg Tablet Extended Release 12 Hr 1 tab PO BID Qty: 14 0RF sennosides-docusate sodium [Stool Softener-Stimulant Laxat] 8.6-50 mg Tablet 1 tab PO BID PRN (Reason: constipation) Qty: 0 0RF Rx Instructions: [id number] insulin glargine 100 unit/mL (3 mL) insulin pen 38 unit subcut DAILY Qty: 15 0RF buspirone 5 mg Tablet 5 mg PO TID cetirizine 10 mg Tablet 10 mg PO DAILY ferrous sulfate 325 mg (65 mg iron) Tablet 325 mg PO DAILY sertraline [Zoloft] 100 mg Tablet 100 mg PO DAILY Primary Care Provider: Issa Trinidad Referrals: Issa Trinidad MD [Primary Care Provider] - Activity Restrictions/Additional Instructions: The patient's work-up shows no acute pneumonia or fluid buildup in the lungs and his labs are at baseline. Once he had his oxygen on for the last few hours his pulse ox is now in the low to mid 90s on his normal 3 L and therefore [facility] is [facility] Disposition Disposition: Home, Self Care
[2022-08-06 05:09] LABS: Anion Gap 5 (5-15); BUN 55 mg/dL (7-18); BUN/Creat Ratio 13.9 RATIO (10-20); Chloride 103 mmol/L (98-107); Creatinine, Serum 3.95 mg/dL (0.70-1.30); EST Glomerular Filtration Rate 16 mL/min (>60); Est Glom Filt Rate - Afr Amer 19 mL/min (>60); Glucose 162 mg/dL (74-106); Magnesium 2.4 mg/dL (1.6-2.6); Potassium 6.5 mmol/L (3.5-5.1); Sodium Level 134 mmol/L (136-145)
[2022-08-06 05:24] LABS: BNP,B-Type NATRIURETIC PEPTIDE 222.7 pg/mL (0-100)
[2022-08-06 05:33] VITALS: BP 153/98; PULSE 94; RESP 22; O2SAT 94
[2022-08-06 05:54] LABS: Potassium 5.4 mmol/L (3.5-5.1)
[2022-08-06 07:30] VITALS: BP 164/76; PULSE 83; RESP 27; O2SAT 95
[2022-08-06 07:39] VITALS: BP 164/76; PULSE 102; RESP 20; O2SAT 94
== END 2022-08-06 07:53 | disposition home or self-care (01) ==
PROVIDERS: Emergency Provider Emergency Medicine; PCP Family Medicine; Visit Provider Emergency Medicine
DX: R06.02 Shortness of breath (principal); F25.9 Schizoaffective disorder, unspecified; F31.9 Bipolar disorder, unspecified; E11.40 Type 2 diabetes mellitus with diabetic neuropathy, unspecified; E11.22 Type 2 diabetes mellitus with diabetic chronic kidney disease; N18.32 Chronic kidney disease, stage 3b; I12.9 Hypertensive chronic kidney disease with stage 1 through stage 4 chronic kidney disease, or unspecified chronic kidney disease; Z99.81 Dependence on supplemental oxygen; Z95.5 Presence of coronary angioplasty implant and graft; I25.10 Atherosclerotic heart disease of native coronary artery without angina pectoris; E78.5 Hyperlipidemia, unspecified; Z79.82 Long term (current) use of aspirin; F41.9 Anxiety disorder, unspecified; G47.00 Insomnia, unspecified; Z79.899 Other long term (current) drug therapy; Z95.0 Presence of cardiac pacemaker
CPT/HCPCS: 36415; 71045; 80048; 83735; 83880; 84132; 85025; 99284; A4216

== ENCOUNTER 2022-08-06 19:21 | Emergency (ER) | payer MEDICARE, MEDICAID, SELFPAY ==
[2020-12-26 13:29] VITALS: BMI 31.8
[2022-08-06 19:22] VITALS: BP 160/84; PULSE 89; RESP 22; TEMP 37.1; O2SAT 88; BMI 32.1
[2022-08-06 19:24] VITALS: O2SAT 91
[2022-08-06 19:26] VITALS: O2SAT 92
--- NOTE | 2022-08-06 19:55 | EKG12_ITS ---
Test Reason : DYSRHYTHMIA Blood Pressure : / mmHG Vent. Rate : 077 BPM Atrial Rate : 077 BPM P-R Int : 184 ms QRS Dur : 088 ms QT Int : 340 ms P-R-T Axes : 033 -34 055 degrees QTc Int : 384 ms Normal sinus rhythm Left axis deviation Abnormal ECG Confirmed by GRETA JASON, CHARI ([id number]), tape editor VENTURA FINK ([id number]) on 08/08/2022 9:52:32 AM Referred By: ANGEL Confirmed By:CHARI HERNANDES MD
--- NOTE | 2022-08-06 20:10 | RAD_ITS ---
STUDY: X-RAY CHEST REASON FOR EXAM: Male, 71 years old. Cough TECHNIQUE: Frontal and lateral views of the chest. COMPARISON: Earlier the same day FINDINGS: There is dual-chamber pacemaker device on the left in satisfactory position. There are monitoring devices. There are mild left lower lung increased opacities. There is small left pleural effusion. There is mild cardiac enlargement. Normal mediastinum and prerna. Normal visualized pulmonary arteries. There is atherosclerotic calcification of the aortic arch with tortuosity. There are diffuse degenerative changes of the visualized thoracic spine. Normal visualized ribs, clavicles, and shoulders. There is no demonstrated abnormality of the visualized soft tissue structures of the upper abdomen. RAD/Chest PA and Lateral IMPRESSION: Left lower lung infiltrate and effusion. Electronically Signed: Frankie Islas MD at 20:43 EDT ,
[2022-08-06 20:12] LABS: Absolute Lymphocyte Count 1.01 X10^3/uL (0.83-4.51); Absolute Neutrophil Count 5.6 X10^3/uL (2.0-7.7); Basophil# 0.04 X10^3/uL; Basophil% 0.5 % (0-1); Eosinophils% 3.8 % (0-5); Hematocrit 33.2 % (40-54); Hemoglobin 10.3 g/dL (13.0-16.5); Lymphocyte # 1.01 X10^3/ul (0.83-4.51); Lymphocyte % 12.9 % (19-41); Mean Corpuscular Hgb 31.1 pg (27.0-32.0); Mean Corpuscular Volume 100.3 fL (80-94); Mean Platelet Vol. 9.8 fl (6.2-12.0); Monocyte# 0.83 X10^3/uL; Monocyte% 10.6 % (0-10); NRBC Flagged by Analyzer 0 % (0-5); Neutrophil # 5.58 X10^3/uL (2.7-7.7); Neutrophil % 71.7 % (47-70); Platelet Count 324 K/mm3 (150-450); RBC Distribution Width CV 13.4 % (11.6-14.6); RBC Distribution Width SD 49.4 fl (35.1-43.9); Red Blood Count 3.31 M/mm3 (4.6-6.2); White Blood Count 7.8 K/mm3 (4.4-11.0)
--- NOTE | 2022-08-06 20:16 | RAD_ITS ---
STUDY: X-RAY - RIGHT SHOULDER REASON FOR EXAM: Male, 71 years old. Pain TECHNIQUE: 2 view(s) of the shoulder. COMPARISON: None. FINDINGS: There is cephalad migration of the humeral head consistent with rotator cuff pathology. There is mild degenerative arthrosis of the glenohumeral articulation. There is degenerative arthrosis of the acromioclavicular joint without inferior osseous spur formation. Normal acromion. Normal humeral head and visualized proximal humerus. The soft tissue structures are unremarkable. There is no demonstrated fracture. Normal visualized pulmonary apex. RAD/Shoulder min 2 Views IMPRESSION: Degenerative change with chronic rotator cuff tear. Electronically Signed: Frankie Islas MD at 20:54 EDT ,
--- NOTE | 2022-08-06 20:17 | EX.ED.DYSGE1 ---
HPI History of Present Illness Chief Complaint: Shortness of Breath Informant: patient and SNF Narrative Narrative: Sent in from [facility] for evaluation states he has been there for 2 years. Patient on chronic 3 L of oxygen. Reported patient will take off his oxygen dropped down to 80% pulse ox. Patient states he is not short of breath. Patient history of schizophrenia, states he gets panic attack he states he follows with psychiatrist Dr. Orozco. States he gets a [id number] powder substance that helps with this. Is unclear what it is. Patient focused on right shoulder pain that he has had for months and states the doctors would not do anything about it. Denies chest or abdominal pain. After initiation of work-up review of records he was here last night overnight for evaluation for similar reported complaints of him taken off his oxygen. He denies cough. Denies fevers. From report from nursing facility states he had high heart rate that seemed irregular therefore sent to the ED. Patient does have a pacemaker for history of complete heart block. 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 Back problem Bipolar disorder Cataracts, bilateral Chronic kidney disease Chronic kidney disease (CKD) stage G3b/A2, moderately decreased glomerular filtration rate (GFR) between 30-44 mL/min/1.73 square meter and albuminuria creatinine ratio between 30-299 mg/g Complete heart block Depression Diabetes mellitus, type II Essential hypertension Falls GI problem Gout Headache History of ST elevation myocardial infarction (STEMI) (11/19/17) Hyperlipidemia Hypoxia Insomnia Kidney disease Neuropathy Osteoarthritis Paroxysmal atrial fibrillation Partial small bowel obstruction Recurrent UTI Schizoaffective disorder Seasonal allergies Sepsis Syncope Traumatic brain injury Home Medications multivitamin 1 tab PO DAILY vitamin 09/07/16 [History Last Taken 12/10/21] aspirin 81 mg tablet,delayed release 81 mg PO QDAY heart health 02/27/17 [History Last Taken 12/10/21] nitroglycerin 0.4 mg sublingual tablet (Nitrostat) 0.4 mg sublingual Q5M PRN CHEST PAIN 02/27/17 [History Last Taken 12/29/18] amlodipine 10 mg tablet 10 mg PO DAILY hypertension 02/03/19 [History Last Taken 12/10/21] cholecalciferol (vitamin D3) 25 mcg (1,000 unit) capsule 1,000 unit PO DAILY supplement 02/03/19 [History Last Taken 12/10/21] carvedilol 6.25 mg tablet 6.25 mg PO BID heart rate/blood pressure 03/25/20 [History Last Taken 12/10/21] levothyroxine 112 mcg tablet 112 mcg PO DAILY hypothyroidism 09/23/20 [History Last Taken 12/10/21] duloxetine 60 mg capsule,delayed release 60 mg PO BID depression 01/05/21 [History Last Taken 12/10/21] gabapentin 600 mg tablet 600 mg PO QHS pain 01/05/21 [History Last Taken 12/10/21] paliperidone palmitate 234 mg/1.5 mL intramuscular syringe (Invega Sustenna) 234 mg IM Q28D schizophrenia 01/05/21 [History Last Taken 11/29/21] trazodone 50 mg tablet 50 mg PO QHS insomnia 01/05/21 [History Last Taken 12/09/21] fenofibrate micronized 200 mg capsule 200 mg PO DAILY 03/01/21 [History Last Taken 12/10/21] acetaminophen 500 mg tablet 1,000 mg PO TID PAIN 12/10/21 [History Last Taken 12/10/21] albuterol sulfate 90 mcg/actuation aerosol inhaler (Ventolin HFA) 2 puff inhalation Q4H PRN Cough 12/10/21 [History Last Taken 12/10/21] calcium polycarbophil 625 mg tablet (Fiber-Tabs) 625 mg PO DAILY 12/10/21 [History Last Taken 12/10/21] insulin lispro 100 unit/mL subcutaneous solution (Humalog U-100 Insulin) See Protocol subcut TID 12/10/21 [History Last Taken 12/10/21] lamotrigine 100 mg tablet 100 mg PO DAILY MOOD 12/10/21 [History Last Taken 12/10/21] loratadine 10 mg tablet 10 mg PO DAILY 12/10/21 [History Last Taken 12/10/21] oxcarbazepine 150 mg tablet 450 mg PO BID BIPOLAR 12/10/21 [History Last Taken 12/10/21] risperidone 1 mg tablet 1.5 mg PO BID 12/10/21 [History Last Taken 12/10/21] triamcinolone acetonide 0.1 % topical cream 1 applic topical Q12H PRN Rash 12/10/21 [History Last Taken 12/03/21] insulin glargine 100 unit/mL (3 mL) subcutaneous pen 38 unit (0.38 mL) subcut DAILY diabetes #15 mL 12/12/21 [Rx Last Taken 12/10/21] sennosides 8.6 mg-docusate sodium 50 mg tablet (Stool Softener-Stimulant Laxative) 1 tab PO BID PRN constipation #0 tabs 12/12/21 [Rx Last Taken Unknown] buspirone 5 mg tablet 5 mg PO TID 08/06/22 [History Last Taken Unknown] cefdinir 300 mg capsule 300 mg PO BID #13 caps 08/06/22 [Rx Last Taken Unknown] cetirizine 10 mg tablet 10 mg PO DAILY 08/06/22 [History Last Taken Unknown] ferrous sulfate 325 mg (65 mg iron) tablet 325 mg PO DAILY 08/06/22 [History Last Taken Unknown] guaifenesin 400 mg tablet 400 mg PO BID 08/06/22 [History Last Taken Unknown] sertraline 100 mg tablet (Zoloft) 100 mg PO DAILY 08/06/22 [History Last Taken Unknown] Allergy/AdvReac Type Severity Reaction Status Date / Time atorvastatin [From Lipitor] Allergy Unknown Verified 08/06/22 19:25 Penicillins Allergy Unknown Verified 08/06/22 19:25 lisinopril AdvReac Unknown unknown Verified 08/06/22 19:25 codeine AdvReac Upset Verified 08/06/22 19:25 Stomach doxycycline AdvReac Other Verified 08/06/22 19:25 lycopene AdvReac Other Verified 08/06/22 19:25 nickel AdvReac Rash Verified 08/06/22 19:25 Family History Father Arthritis Bleeding disorder Heart disease Hypertension Mother Hypertension Surgical History History of coronary artery stent placement (11/19/17) History of permanent cardiac pacemaker placement (01/08/21) Social History household members: none housing: half-way Smoking Status: Never smoker alcohol intake: never substance use type: does not use caffeine: Yes ROS ROS ED Constitutional Constitutional ED: Denies chills, fever(s) or sweats Eyes Eyes: Denies change in vision ENT ENT ED: Denies dysphagia or sore throat Cardiovascular Cardiovascular: Denies chest pain, leg edema, palpitations or racing heartbeat Respiratory/Chest Respiratory/Chest: Denies cough, dyspnea or dyspnea on exertion Gastrointestinal Gastrointestinal: Denies abdominal pain, diarrhea, nausea or vomiting Genitourinary Genitourinary ED: Denies dysuria, hematuria or urinary frequency Musculoskeletal Musculoskeletal: Reports extremity pain and other Details: Right shoulder pain ; Denies back pain or neck pain Integumentary Denies rash or wounds Neurologic Neurologic: Denies headache(s), paresthesias or weakness EXAM Physical Exam Const Vital Signs: 08/06/22 19:22 08/06/22 19:24 08/06/22 19:26 Temperature 98.7 F Temperature Source Temporal Pulse Rate 89 Respiratory Rate 22 H Respiratory Effort Short of Breath Respiratory Depth Normal Blood Pressure 160/84 H Blood Pressure Mean 109 Pulse Ox 88 91 Oxygen Delivery Method Nasal Cannula Nasal Cannula Nasal Cannula Oxygen Flow Rate (L/min) 3 4 4 08/06/22 20:01 Temperature Temperature Source Pulse Rate Respiratory Rate Respiratory Effort Respiratory Depth Blood Pressure Blood Pressure Mean Pulse Ox Oxygen Delivery Method Nasal Cannula Oxygen Flow Rate (L/min) 4 Positive well nourished and well developed Constitutional Narrative: 4 L nasal cannula no respiratory distress. General Appearance ED: well developed and NAD HEENT Reports moist mucous membranes normocephalic and atraumatic Eyes PERRL, EOMs intact bilaterally and conjunctivae normal General Eye ED: Yes normal appearance of both eyes Neck no lymphadenopathy and supple General: Negative for tenderness Chest Wall Chest: Negative for tenderness Resp normal respiratory effort and normal air movement Effort and Inspection: symmetric chest movement; Negative for respiratory distress Cardio regular rate, regular rhythm and no murmurs Peripheral Pulses: pulses 2+ throughout GI normal to inspection, nondistended, normoactive bowel sounds and non-tender Palpation: Negative for guarding or rebound tenderness present Back/Spine no CVA tenderness and no thoracic nor lumbar tenderness Extremity Extremity Narrative: Right upper extremity: No deformities of the shoulder. Pain with movement. No erythema. General Extremety ED: Negative for edema or tenderness General Extremity: Negative for edema Neuro oriented x3 and no sensory deficits noted Sensorium / Orientation: awake and alert Skin no rashes or lesions noted and no wounds MDM MDM MDM Narrative Medical decision making narrative: Interventions / MDM: Differential diagnosis: Pneumonia, cardiac dysrhythmia, viral syndrome Diagnosis considered but do not suspect: N/A My EKG interpretation: Sinus rate of 77, no ST or T wave changes Imaging independently reviewed and interpreted by myself: 2 view chest x-ray: Left lower lobe infiltrate and small effusion per radiology. Also reviewed interpreted by myself. Left shoulder x-ray 2 views osteoarthritic changes. External documents reviewed: N/A Test considered but not ordered:N/A ED course: Patient on 4 L of oxygen no respiratory distress. Alert and oriented x3. Patient preoccupied concerns of his right shoulder pain and powder given to him by his psychiatrist to help with panic attacks. Unclear what this is at this time. He was sent in for concerns for cardiac dysrhythmia EKG was sinus rhythm. Labs chronic kidney disease creatinine 3.83 potassium was 5. White count 7.8 hemoglobin 10.3. Two-view chest x-ray reviewed and interpreted radiology concerning left lower infiltrate with small pleural effusion. Discussed further with the patient he states he had a cough for 2 years. Is not worsening. Slight hypoxia requiring 4 L of oxygen. Will cover with antibiotics first dose Omnicef given in the ED. Prescription printed for total 7 days. Right shoulder x-ray notes osteoarthritic changes. There is no fractures or dislocations. He is updated on the findings. This can be an outpatient management with referral. If needed. Re-evaluation: stable Disposition discussed with patient/family/significant other: Patient Case discussed with consulting clinician: N/A Lab Data Attestation: I reviewed the patient's lab results. Labs: Laboratory Results - last 24 hr 08/06/22 08/06/22 19:26 19:26 WBC 7.8 RBC 3.31 L Hgb 10.3 L Hct 33.2 L MCV 100.3 H MCH 31.1 MCHC 31.0 L RDW Std Deviation 49.4 H RDW Coeff of Shashank 13.4 Plt Count 324 MPV 9.8 Immature Gran % (Auto) 0.500 Neut % (Auto) 71.7 H Lymph % (Auto) 12.9 L Craven % (Auto) 10.6 H Eos % (Auto) 3.8 Baso % (Auto) 0.5 Absolute Neuts (auto) 5.6 Absolute Lymphs (auto) 1.01 Nucleated RBC % 0 Sodium 138 Potassium 5.0 Chloride 102 Carbon Dioxide 30.0 Anion Gap 6 BUN 58 H Creatinine 3.83 H Estim Creat Clear Calc 17.74 Est GFR (MDRD) Af Amer 20 L Est GFR (MDRD) Non-Af 17 L BUN/Creatinine Ratio 15.1 Glucose 178 H Calcium 9.0 Radiography Diagnostic Testing: Clinical Impression(s) from Imaging Studies Chest X-Ray 08/06/22 20:10 IMPRESSION: Left lower lung infiltrate and effusion. Electronically Signed: Frankie Islas MD at 20:43 EDT , Shoulder X-Ray 08/06/22 20:16 IMPRESSION: Degenerative change with chronic rotator cuff tear. Electronically Signed: Frankie Islas MD at 20:54 EDT , Discharge Plan Triage Chief Complaint: Shortness of Breath ED Provider: Kelvin Lucero Dx/Rx/DC Orders Clinical Impression: Pneumonia, CRI (chronic renal insufficiency), Schizoaffective disorder, History of permanent cardiac pacemaker placement, Osteoarthritis of right shoulder region Instructions: CKD Dc, ED Pneumonia (Adult) Prescriptions: New cefdinir 300 mg capsule 300 mg PO BID Qty: 13 0RF No Action aspirin 81 mg tablet,delayed release (DR/EC) 81 mg PO QDAY Hold Instructions: Resume on 01/22/21. nitroglycerin [Nitrostat] 0.4 mg tablet, sublingual 0.4 mg SUBLINGUAL Q5M PRN (Reason: CHEST PAIN) amlodipine 10 mg tablet 10 mg PO DAILY cholecalciferol (vitamin D3) 1,000 unit capsule 1,000 unit PO DAILY fenofibrate micronized 200 mg capsule 200 mg PO DAILY multivitamin 1 EACH tablet 1 tab PO DAILY carvedilol 6.25 MG tablet 6.25 mg PO BID levothyroxine 112 mcg tablet 112 mcg PO DAILY gabapentin 600 mg Tablet 600 mg PO QHS trazodone 50 mg Tablet 50 mg PO QHS duloxetine 60 mg Capsule,Delayed Release(Dr/Ec) 60 mg PO BID Invega Sustenna 234 mg/1.5 mL Syringe 234 mg IM Q28D oxcarbazepine 150 mg tablet 450 mg PO BID acetaminophen 500 mg Tablet 1,000 mg PO TID triamcinolone acetonide 0.1 % cream 1 applic TOPICAL Q12H PRN (Reason: Rash) Rx Instructions: APPLY TOPICALLY NEEDED FOR RASH calcium polycarbophil [Fiber-Tabs] 625 mg Tablet 625 mg PO DAILY insulin lispro [Humalog U-100 Insulin] 100 unit/mL solution See Protocol subcut TID Protocol: 6. Sliding Scale Insulin Custom Condition: mg/dl range Dose/Route: Number of Units Condition: 150-200 Dose/Route: 2 Condition: 201-250 Dose/Route: 4 Condition: 251-300 Dose/Route: 6 Condition: 301-350 Dose/Route: 8 Condition: 351-400 Dose/Route: 10 Condition: 401-450 Dose/Route: 12 Condition: 450> Instruction: CALL MD Protocol Text: Custom Sliding Scale albuterol sulfate [Ventolin HFA] 90 mcg/actuation Hfa Aerosol Inhaler 2 puff INHALATION Q4H PRN (Reason: Cough) risperidone 1 mg tablet 1.5 mg PO BID lamotrigine 100 mg tablet 100 mg PO DAILY loratadine 10 mg Tablet 10 mg PO DAILY sennosides-docusate sodium [Stool Softener-Stimulant Laxat] 8.6-50 mg Tablet 1 tab PO BID PRN (Reason: constipation) Qty: 0 0RF Rx Instructions: Xein-urf-eeajwuk insulin glargine 100 unit/mL (3 mL) insulin pen 38 unit subcut DAILY Qty: 15 0RF buspirone 5 mg Tablet 5 mg PO TID cetirizine 10 mg Tablet 10 mg PO DAILY ferrous sulfate 325 mg (65 mg iron) Tablet 325 mg PO DAILY sertraline [Zoloft] 100 mg Tablet 100 mg PO DAILY guaifenesin 400 mg Tablet 400 mg PO BID Primary Care Provider: Jace Fallon Referrals: Jace Fallon [Primary Care Provider] - 1 Day Activity Restrictions/Additional Instructions: EKG she is normal rhythm normal rate. Chest x-ray also pneumonia left lower lobe. Labs with creatinine stable as previous at 3.83. Potassium 5. White count 7.8. Continue oxygen 3 to 4 L as needed. Take and finish antibiotic recs. Return if worsening symptoms. Disposition Disposition: Home, Self Care
[2022-08-06 20:28] LABS: Anion Gap 6 (5-15); BUN 58 mg/dL (7-18); BUN/Creat Ratio 15.1 RATIO (10-20); Chloride 102 mmol/L (98-107); Creatinine, Serum 3.83 mg/dL (0.70-1.30); EST Glomerular Filtration Rate 17 mL/min (>60); Est Glom Filt Rate - Afr Amer 20 mL/min (>60); Estimated Creatinine Clearance 17.74 ml/min; Glucose 178 mg/dL (74-106); Sodium Level 138 mmol/L (136-145)
[2022-08-06] MEDS: Cefdinir 300 MG Capsule PO (21:53)
[2022-08-06 22:01] VITALS: BP 135/66; PULSE 77; RESP 20; O2SAT 92
== END 2022-08-06 22:03 | disposition home or self-care (01) ==
PROVIDERS: Emergency Provider Emergency Medicine; PCP Family Medicine; Visit Provider Emergency Medicine
DX: J18.9 Pneumonia, unspecified organism (principal); F25.9 Schizoaffective disorder, unspecified; F31.9 Bipolar disorder, unspecified; E11.40 Type 2 diabetes mellitus with diabetic neuropathy, unspecified; E11.22 Type 2 diabetes mellitus with diabetic chronic kidney disease; N18.32 Chronic kidney disease, stage 3b; I12.9 Hypertensive chronic kidney disease with stage 1 through stage 4 chronic kidney disease, or unspecified chronic kidney disease; M19.011 Primary osteoarthritis, right shoulder; Z95.0 Presence of cardiac pacemaker; E78.5 Hyperlipidemia, unspecified; I25.10 Atherosclerotic heart disease of native coronary artery without angina pectoris; Z99.81 Dependence on supplemental oxygen; Z79.82 Long term (current) use of aspirin; Z79.899 Other long term (current) drug therapy; G47.00 Insomnia, unspecified; F41.9 Anxiety disorder, unspecified; Z95.5 Presence of coronary angioplasty implant and graft
CPT/HCPCS: 71046; 73030; 80048; 85025; 87428; 93005; 99285; A4216

== ENCOUNTER 2022-08-27 18:12 | Inpatient (IN) | payer MEDICARE, MEDICAID, SELFPAY ==
[2020-12-26 13:29] VITALS: BMI 31.8
[2022-08-27] VITALS (10 sets, daily range): BP systolic 127–183; BP diastolic 74–96; PULSE 57–93; RESP 12–24; TEMP 36.1–36.8; O2SAT 78–97; BMI 34.0; BMI 32.5
--- NOTE | 2022-08-27 18:31 | EKG12_ITS ---
Test Reason : DYSRHYTHMIA Blood Pressure : / mmHG Vent. Rate : 091 BPM Atrial Rate : 091 BPM P-R Int : 226 ms QRS Dur : 088 ms QT Int : 352 ms P-R-T Axes : 036 -09 060 degrees QTc Int : 432 ms Atrial-paced rhythm with prolonged AV conduction in a pattern of bigeminy Abnormal ECG Confirmed by GRETA JASON, CHARI ([id number]), technical writer and editor VENTURA FINK ([id number]) on 08/28/2022 9:38:00 AM Referred By: ANGEL Confirmed By:CHARI HERNANDES MD
--- NOTE | 2022-08-27 18:43 | RAD_ITS ---
INDICATION: chest pain EXAMINATION/TECHNIQUE: X-RAY - XR Chest 1 View COMPARISON: August 06, 2022 FINDINGS: LINES/DEVICES: There is a left-sided pacemaker. LUNGS: No consolidation, edema or effusion. Interstitial prominence. No pneumothorax. MEDIASTINUM AND CARDIOVASCULAR STRUCTURES: Cardiac silhouette not enlarged. Central airways and mediastinal contour are unremarkable. BONES AND SOFT TISSUES: Mild scoliosis and degenerative changes of the vertebral column. RAD/Chest 1 View (Portable) IMPRESSION: Pulmonary interstitial prominence. Electronically Signed: Prasanna Jessica DO at 19:25 EDT ,
[2022-08-27 19:13] LABS: Absolute Lymphocyte Count 0.81 X10^3/uL (0.83-4.51); Absolute Neutrophil Count 5.6 X10^3/uL (2.0-7.7); Basophil# 0.04 X10^3/uL; Basophil% 0.5 % (0-1); Eosinophil# 0.21 X10^3/uL; Eosinophils% 2.8 % (0-5); Hematocrit 32.5 % (40-54); Hemoglobin 10.1 g/dL (13.0-16.5); Lymphocyte # 0.81 X10^3/ul (0.83-4.51); Lymphocyte % 10.9 % (19-41); Mean Corp Hgb Conc 31.1 g/dL (32-36); Mean Corpuscular Hgb 30.3 pg (27.0-32.0); Mean Corpuscular Volume 97.6 fL (80-94); Monocyte# 0.75 X10^3/uL; Monocyte% 10.1 % (0-10); NRBC Flagged by Analyzer 0 % (0-5); Neutrophil # 5.59 X10^3/uL (2.7-7.7); Neutrophil % 75.3 % (47-70); POSITIVE COUNT YES; Platelet Count 282 K/mm3 (150-450); RBC Distribution Width CV 13.7 % (11.6-14.6); RBC Distribution Width SD 48.9 fl (35.1-43.9); Red Blood Count 3.33 M/mm3 (4.6-6.2); White Blood Count 7.4 K/mm3 (4.4-11.0)
[2022-08-27 19:15] LABS: Differential Indicated SCAN CRITERIA MET
[2022-08-27 19:34] LABS: Differential Comment SCANNED
[2022-08-27 19:35] LABS: Anion Gap 2 (5-15); BUN 41 mg/dL (7-18); BUN/Creat Ratio 13.4 RATIO (10-20); Calcium,Total 9.5 mg/dL (8.5-10.1); Chloride 99 mmol/L (98-107); Creatinine, Serum 3.05 mg/dL (0.70-1.30); EST Glomerular Filtration Rate 22 mL/min (>60); Est Glom Filt Rate - Afr Amer 26 mL/min (>60); Estimated Creatinine Clearance 22.27 ml/min; Glucose 156 mg/dL (74-106); Sodium Level 136 mmol/L (136-145); Troponin-I HS (w/2H Reflex) 23 pg/mL (3.0-78.0)
[2022-08-27 19:51] LABS: BNP,B-Type NATRIURETIC PEPTIDE 647.1 pg/mL (0-100)
[2022-08-27 19:52] LABS: D-Dimer Quantitative (DVT/PE) 0.64 FEU/ug/m (0.27-0.49)
[2022-08-27 20:04] LABS: Allen Test Positive; Base Excess 10 mmol/L (-2 to +2); Bicarbonate 36.5 mmol/L (22-26); O2 Delivery Device HFNC; PO2 30 mmHG (75-100); SITE R Radial; SO2 46 % (95-99); Total Carbon Dioxide 39 mmol/L; pCO2 78.8 mmHg (35-45); pH 7.27 (7.35-7.45)
--- NOTE | 2022-08-27 20:22 | ED.RN ---
ELEVATED D -DIMER. DR BORJA
--- NOTE | 2022-08-27 20:26 | ED.VIS.DYS ---
HPI History of Present Illness Chief Complaint: Shortness of Breath Narrative Narrative: 71-year-old male presenting with dyspnea. Patient appears to be a little confused. He states that he thinks he had an anxiety attack. He told me in length however how he developed traumatic brain injury. He also has a history of hypertension, hyperlipidemia, CAD, heart block status post pacemaker placement. Patient states he does not have any chest pain. He states that he usually only uses oxygen as needed periodically. He is 78 pulse ox on arrival. He is placed on nonrebreather initially and then weaned down to 10 L. [facility] Medical History Accidental acetaminophen overdose Acute kidney injury Anxiety Arthritis Atherosclerotic heart disease of [place] coronary artery without angina pectoris Back problem Bipolar disorder Cataracts, bilateral Chronic kidney disease Chronic kidney disease (CKD) stage G3b/A2, moderately decreased glomerular filtration rate (GFR) between 30-44 mL/min/1.73 square meter and albuminuria creatinine ratio between 30-299 mg/g Complete heart block Depression Diabetes mellitus, type II Essential hypertension Falls GI problem Gout Headache History of ST elevation myocardial infarction (STEMI) (11/19/17) Hyperlipidemia Hypoxia Insomnia Kidney disease Neuropathy Osteoarthritis Paroxysmal atrial fibrillation Partial small bowel obstruction Recurrent UTI Schizoaffective disorder Seasonal allergies Sepsis Syncope Traumatic brain injury Home Medications multivitamin 1 tab PO DAILY HEALTH MAINTENANCE 09/07/16 [History Last Taken 12/10/21] aspirin 81 mg tablet,delayed release 81 mg PO QDAY HEART HEALTH 02/27/17 [History Last Taken 12/10/21] nitroglycerin 0.4 mg sublingual tablet (Nitrostat) 0.4 mg sublingual Q5M PRN CHEST PAIN 02/27/17 [History Last Taken 12/29/18] amlodipine 10 mg tablet 10 mg PO DAILY BLOOD PRESSURE 02/03/19 [History Last Taken 12/10/21] cholecalciferol (vitamin D3) 25 mcg (1,000 unit) capsule 1,000 unit PO DAILY SUPPLEMENT 02/03/19 [History Last Taken 12/10/21] carvedilol 6.25 mg tablet 6.25 mg PO DAILY HEART 03/25/20 [History Last Taken 12/10/21] levothyroxine 112 mcg tablet 112 mcg PO DAILY THYROID 09/23/20 [History Last Taken 12/10/21] duloxetine 60 mg capsule,delayed release 60 mg PO BID DEPRESSION 01/05/21 [History Last Taken 12/10/21] gabapentin 600 mg tablet 600 mg PO BID NERVE PAIN 01/05/21 [History Last Taken 12/10/21] paliperidone palmitate 234 mg/1.5 mL intramuscular syringe (Invega Sustenna) 234 mg IM Q28D SCHIZOPHRENIA 01/05/21 [History Last Taken 11/29/21] trazodone 50 mg tablet 50 mg PO QHS INSOMNIA 01/05/21 [History Last Taken 12/09/21] fenofibrate micronized 200 mg capsule 200 mg PO DAILY CHOLESTEROL 03/01/21 [History Last Taken 12/10/21] acetaminophen 500 mg tablet 1,000 mg PO TID PAIN 12/10/21 [History Last Taken 12/10/21] albuterol sulfate 90 mcg/actuation aerosol inhaler (Ventolin HFA) 2 puff inhalation Q4H PRN SHORTNESS OF BREATH 12/10/21 [History Last Taken 12/10/21] calcium polycarbophil 625 mg tablet (Fiber-Tabs) 625 mg PO DAILY CONSTIPATION 12/10/21 [History Last Taken 12/10/21] insulin lispro 100 unit/mL subcutaneous solution (Humalog U-100 Insulin) See Protocol subcut TIDCM DIABETES 12/10/21 [History Last Taken 12/10/21] lamotrigine 100 mg tablet 100 mg PO DAILY MOOD 12/10/21 [History Last Taken 12/10/21] loratadine 10 mg tablet 10 mg PO DAILY RASH 12/10/21 [History Last Taken 12/10/21] oxcarbazepine 150 mg tablet 150 mg PO BID BIPOLAR DISORDER 12/10/21 [History Last Taken 12/10/21] risperidone 1 mg tablet 1.5 mg PO BID SCHIZOPHRENIA 12/10/21 [History Last Taken 12/10/21] triamcinolone acetonide 0.1 % topical cream 1 applic topical Q12H PRN Rash 12/10/21 [History Last Taken 12/03/21] buspirone 5 mg tablet 5 mg PO TID ANXIETY 08/06/22 [History Last Taken Unknown] cetirizine 10 mg tablet 10 mg PO DAILY ALLERGIES/RASH 08/06/22 [History Last Taken Unknown] ferrous sulfate 325 mg (65 mg iron) tablet 325 mg PO DAILY SUPPLEMENT 08/06/22 [History Last Taken Unknown] guaifenesin 400 mg tablet 400 mg PO BID CONGESTION 08/06/22 [History Last Taken Unknown] sertraline 100 mg tablet (Zoloft) 100 mg PO DAILY ANXIETY/DEPRESSION 08/06/22 [History Last Taken Unknown] insulin glargine 100 unit/mL (3 mL) subcutaneous pen 38 unit subcut QHS DIABETES 08/27/22 [History Last Taken Unknown] oxcarbazepine 300 mg tablet 300 mg PO BID BIPOLAR DISORDER 08/27/22 [History Last Taken Unknown] sennosides 8.6 mg tablet 8.6 mg PO Q12H CONSTIPATION 08/27/22 [History Last Taken Unknown] Allergy/AdvReac Type Severity Reaction Status Date / Time atorvastatin [From Lipitor] Allergy Unknown Verified 08/27/22 18:13 Penicillins Allergy Unknown Verified 08/27/22 18:13 lisinopril AdvReac Unknown unknown Verified 08/27/22 18:13 codeine AdvReac Upset Verified 08/27/22 18:13 Stomach doxycycline AdvReac Other Verified 08/27/22 18:13 lycopene AdvReac Other Verified 08/27/22 18:13 nickel AdvReac Rash Verified 08/27/22 18:13 Family History Father Arthritis Bleeding disorder Heart disease Hypertension Mother Hypertension Surgical History History of coronary artery stent placement (11/19/17) History of permanent cardiac pacemaker placement (01/08/21) Social History household members: none housing: snf Smoking Status: Never smoker alcohol intake: never substance use type: does not use caffeine: Yes ROS ROS ED Constitutional Constitutional ED: Denies chills or fever(s) Eyes Eyes: Denies change in vision ENT ENT ED: Denies rhinorrhea or sore throat Cardiovascular Cardiovascular: Denies chest pain or palpitations Respiratory/Chest Respiratory/Chest: Reports dyspnea Gastrointestinal Gastrointestinal: Denies abdominal pain, nausea or vomiting Genitourinary Genitourinary ED: Denies dysuria or hematuria Musculoskeletal Musculoskeletal: Denies arthralgias Integumentary Denies abscess or Abrasions Neurologic Neurologic: Denies headache(s) EXAM Physical Exam Const Vital Signs: 08/27/22 18:13 08/27/22 18:18 08/27/22 18:19 Temperature 97.7 F L Temperature Source Temporal Pulse Rate 57 L Respiratory Rate 19 H Respiratory Effort Short of Breath Respiratory Depth Shallow Respiratory Pattern Tachypnea Blood Pressure 175/96 H Blood Pressure Mean 122 Pulse Ox 96 78 Oxygen Delivery Method Non-Rebreather Room Air Room Air Oxygen Flow Rate (L/min) 15 Fraction of Inspired Oxygen (FIO2) 08/27/22 18:19 08/27/22 19:17 08/27/22 19:17 Temperature Temperature Source Pulse Rate 87 Respiratory Rate 21 H Respiratory Effort Respiratory Depth Respiratory Pattern Blood Pressure 183/84 H Blood Pressure Mean 117 Pulse Ox 93 93 Oxygen Delivery Method Non-Rebreather High Flow High Flow Oxygen Flow Rate (L/min) 15 10 10 Fraction of Inspired Oxygen (FIO2) 08/27/22 20:08 08/27/22 20:00 Temperature Temperature Source Pulse Rate 93 73 Respiratory Rate 24 H 21 H Respiratory Effort Respiratory Depth Respiratory Pattern Tachypnea Blood Pressure 154/82 H Blood Pressure Mean 106 Pulse Ox 93 94 Oxygen Delivery Method Room Air Oxygen Flow Rate (L/min) Fraction of Inspired Oxygen (FIO2) 50 Positive unkempt General Appearance ED: unkempt; Negative for pallor HEENT Reports dry mucous membranes atraumatic Mouth ED: Yes dry mucous membranes Mouth: dry mucous membranes Eyes PERRL and EOMs intact bilaterally General Eye ED: Negative for pale conjunctiva Resp Auscultation: diminished lung sounds bilateral Cardio regular rhythm Rate: bradycardia GI non-tender Neuro CN's II-XII intact bilaterally and no sensory deficits noted Sensorium / Orientation: alert Motor Exam: general weakness Psych Psych Narrative: Appears confused Appearance: unkempt Skin no wounds General Skin Exam: Negative for jaundice or pallor MDM MDM MDM Narrative Medical decision making narrative: Patient presenting hypoxic requiring oxygen. He does state that he is not having any chest pain. He does feel short of breath but also explains this as feel like he had an anxiety attack. He has not had a fever. Differential includes ACS, CHF, pneumonia, pneumothorax, viral etiology. CBC to assess white blood cell count, hemoglobin, platelets, differential. BMP to assess renal function, electrolytes, gap. BNP to assess for CHF. EKG and high-sensitivity troponin will be obtained to rule out ischemic causes. D-dimer will be obtained to rule out PE. Chest x-ray to rule out pneumonia. CBC shows a normal white blood cell count of 7.4. Hemoglobin 10.1 and is near baseline. Gotten 3.05 is actually better than previous. Glucose 156 without anion gap. Electrolytes unremarkable. High-sensitivity troponin 23 and delta is 26. VBG obtained shows hypercapnia and hypoxia. Patient placed on BiPAP. He was not tolerating this very well so he was given some Ativan and this did help him. Chest x-ray on my interpretation concerning for CHF given the patient's hypoxia. His BNP is also elevated at 647. Patient given 40 mg of Lasix. Discussed with hospitalist for admission. Impression: 1. Hypoxic respiratory failure 2. CHF 3. Altered mental status Lab Data Attestation: I reviewed the patient's lab results. Labs: Laboratory Results - last 24 hr 08/27/22 08/27/22 08/27/22 18:56 18:56 18:56 WBC 7.4 RBC 3.33 L Hgb 10.1 L Hct 32.5 L MCV 97.6 H MCH 30.3 MCHC 31.1 L RDW Std Deviation 48.9 H RDW Coeff of Shashank 13.7 Plt Count 282 MPV 11.0 Immature Gran % (Auto) 0.400 Neut % (Auto) 75.3 H Lymph % (Auto) 10.9 L [place] % (Auto) 10.1 H Eos % (Auto) 2.8 Baso % (Auto) 0.5 Absolute Neuts (auto) 5.6 Absolute Lymphs (auto) 0.81 L Nucleated RBC % 0 Differential Comment SCANNED D-Dimer Quant (PE/DVT) Sodium 136 Potassium 5.0 Chloride 99 Carbon Dioxide 35.0 H Anion Gap 2 L BUN 41 H Creatinine 3.05 H Estim Creat Clear Calc 22.27 Est GFR (MDRD) Af Amer 26 L Est GFR (MDRD) Non-Af 22 L BUN/Creatinine Ratio 13.4 Glucose 156 H Calcium 9.5 Troponin I High Sens 23 B-Natriuretic Peptide 647.1 H 08/27/22 08/27/22 19:32 21:05 WBC RBC Hgb Hct MCV MCH MCHC RDW Std Deviation RDW Coeff of Shashank Plt Count MPV Immature Gran % (Auto) Neut % (Auto) Lymph % (Auto) [place] % (Auto) Eos % (Auto) Baso % (Auto) Absolute Neuts (auto) Absolute Lymphs (auto) Nucleated RBC % Differential Comment D-Dimer Quant (PE/DVT) 0.64 H* Sodium Potassium Chloride Carbon Dioxide Anion Gap BUN Creatinine Estim Creat Clear Calc Est GFR (MDRD) Af Amer Est GFR (MDRD) Non-Af BUN/Creatinine Ratio Glucose Calcium Troponin I High Sens 26 B-Natriuretic Peptide ABG Data ABG results: ABG 08/27/22 19:59 Specimen Type ART Sample Site R Radial pH 7.27 L Bicarbonate Actual 36.5 H Total CO2 39 Base Excess 10 H O2 Saturation 46 L ABG pCO2 78.8 H* ABG pO2 30 L* Adan Test Positive O2 Delivery Device HFNC Liter Flow 10.0 Crit Call To/Read Back Yes Blood Gas Notified Whom Jhony Radiography Diagnostic Testing: Clinical Impression(s) from Imaging Studies Chest X-Ray 08/27/22 18:43 IMPRESSION: Pulmonary interstitial prominence. Electronically Signed: Prasanna Jessica DO at 19:25 EDT , Discharge Plan Disposition Disposition: Acute Care Hospital [facility] Discharge Date/Time: 08/27/22 22:47
[2022-08-27] MEDS: LORazepam 2 MG/ML Syringe 0.5 MG IV (20:36)
--- NOTE | 2022-08-27 20:37 | PCM.HP.STD ---
HPI - General General Date of Admission: 08/27/22 Date of Service: 08/27/22 Chief Complaint: Low oxygen HPI Narrative RENATO NOONAN, is a 71 M with a significant history of hypertensive chronic kidney disease; type 2 diabetes; schizoaffective disorder; bipolar disorder and dementia with behavioral disturbance; and hypothyroidism who lives at the [facility] presents to the emergency department with hypoxia. From paper obtained from the long term patient oxygen saturation was in the 80s on 4 L. Emergency department report that on presentation patient oxygen saturation was in the 70s. Because patient was hypoxic and had high CO2 on VBG patient was placed on BiPAP at the emergency department. At the time of hospitalist history taking patient while on BiPAP reported that he was sent to emergency department because of low oxygen. Patient denies coughing. Patient is unable to provide further history secondary to his history of schizoaffective disorder and dementia. [facility] Medical History Accidental acetaminophen overdose Acute kidney injury Anxiety Arthritis Atherosclerotic heart disease of [place] coronary artery without angina pectoris Back problem Bipolar disorder Cataracts, bilateral Chronic kidney disease Chronic kidney disease (CKD) stage G3b/A2, moderately decreased glomerular filtration rate (GFR) between 30-44 mL/min/1.73 square meter and albuminuria creatinine ratio between 30-299 mg/g Complete heart block Depression Diabetes mellitus, type II Essential hypertension Falls GI problem Gout Headache History of ST elevation myocardial infarction (STEMI) (11/19/17) Hyperlipidemia Hypoxia Insomnia Kidney disease Neuropathy Osteoarthritis Paroxysmal atrial fibrillation Partial small bowel obstruction Recurrent UTI Schizoaffective disorder Seasonal allergies Sepsis Syncope Traumatic brain injury Home Medications multivitamin 1 tab PO DAILY HEALTH MAINTENANCE 09/07/16 [History Last Taken 12/10/21] aspirin 81 mg tablet,delayed release 81 mg PO QDAY HEART HEALTH 02/27/17 [History Last Taken 12/10/21] nitroglycerin 0.4 mg sublingual tablet (Nitrostat) 0.4 mg sublingual Q5M PRN CHEST PAIN 02/27/17 [History Last Taken 12/29/18] amlodipine 10 mg tablet 10 mg PO DAILY BLOOD PRESSURE 02/03/19 [History Last Taken 12/10/21] cholecalciferol (vitamin D3) 25 mcg (1,000 unit) capsule 1,000 unit PO DAILY SUPPLEMENT 02/03/19 [History Last Taken 12/10/21] carvedilol 6.25 mg tablet 6.25 mg PO BID HEART 03/25/20 [History Last Taken 12/10/21] levothyroxine 112 mcg tablet 112 mcg PO DAILY THYROID 09/23/20 [History Last Taken 12/10/21] duloxetine 60 mg capsule,delayed release 60 mg PO BID DEPRESSION 01/05/21 [History Last Taken 12/10/21] gabapentin 600 mg tablet 600 mg PO BID NERVE PAIN 01/05/21 [History Last Taken 12/10/21] paliperidone palmitate 234 mg/1.5 mL intramuscular syringe (Invega Sustenna) 234 mg IM Q28D SCHIZOPHRENIA 01/05/21 [History Last Taken 11/29/21] trazodone 50 mg tablet 50 mg PO QHS INSOMNIA 01/05/21 [History Last Taken 12/09/21] fenofibrate micronized 200 mg capsule 200 mg PO DAILY CHOLESTEROL 03/01/21 [History Last Taken 12/10/21] acetaminophen 500 mg tablet 1,000 mg PO TID PAIN 12/10/21 [History Last Taken 12/10/21] albuterol sulfate 90 mcg/actuation aerosol inhaler (Ventolin HFA) 2 puff inhalation Q4H PRN SHORTNESS OF BREATH 12/10/21 [History Last Taken 12/10/21] calcium polycarbophil 625 mg tablet (Fiber-Tabs) 625 mg PO DAILY CONSTIPATION 12/10/21 [History Last Taken 12/10/21] insulin lispro 100 unit/mL subcutaneous solution (Humalog U-100 Insulin) See Protocol subcut TIDCM DIABETES 12/10/21 [History Last Taken 12/10/21] lamotrigine 100 mg tablet 100 mg PO DAILY MOOD 12/10/21 [History Last Taken 12/10/21] loratadine 10 mg tablet 10 mg PO DAILY RASH 12/10/21 [History Last Taken 12/10/21] oxcarbazepine 150 mg tablet 150 mg PO BID BIPOLAR DISORDER 12/10/21 [History Last Taken 12/10/21] risperidone 1 mg tablet 1.5 mg PO BID SCHIZOPHRENIA 12/10/21 [History Last Taken 12/10/21] triamcinolone acetonide 0.1 % topical cream 1 applic topical Q12H PRN Rash 12/10/21 [History Last Taken 12/03/21] buspirone 5 mg tablet 5 mg PO TID ANXIETY 08/06/22 [History Last Taken Unknown] cetirizine 10 mg tablet 10 mg PO DAILY ALLERGIES/RASH 08/06/22 [History Last Taken Unknown] ferrous sulfate 325 mg (65 mg iron) tablet 325 mg PO DAILY SUPPLEMENT 08/06/22 [History Last Taken Unknown] guaifenesin 400 mg tablet 400 mg PO BID CONGESTION 08/06/22 [History Last Taken Unknown] sertraline 100 mg tablet (Zoloft) 100 mg PO DAILY ANXIETY/DEPRESSION 08/06/22 [History Last Taken Unknown] insulin glargine 100 unit/mL (3 mL) subcutaneous pen 38 unit subcut QHS DIABETES 08/27/22 [History Last Taken Unknown] oxcarbazepine 300 mg tablet 300 mg PO BID BIPOLAR DISORDER 08/27/22 [History Last Taken Unknown] sennosides 8.6 mg tablet 8.6 mg PO Q12H CONSTIPATION 08/27/22 [History Last Taken Unknown] Allergy/AdvReac Type Severity Reaction Status Date / Time atorvastatin [From Lipitor] Allergy Unknown Verified 08/27/22 18:13 Penicillins Allergy Unknown Verified 08/27/22 18:13 lisinopril AdvReac Unknown unknown Verified 08/27/22 18:13 codeine AdvReac Upset Verified 08/27/22 18:13 Stomach doxycycline AdvReac Other Verified 08/27/22 18:13 lycopene AdvReac Other Verified 08/27/22 18:13 nickel AdvReac Rash Verified 08/27/22 18:13 Family History Father Arthritis Bleeding disorder Heart disease Hypertension Mother Hypertension Surgical History History of coronary artery stent placement (11/19/17) History of permanent cardiac pacemaker placement (01/08/21) Social History household members: none housing: long term Smoking Status: Never smoker alcohol intake: never substance use type: does not use caffeine: Yes ROS Review of Systems ROS Unobtainable: due to mental status Vital Signs Vital Signs Vital Signs: 08/27/22 18:13 08/27/22 18:18 08/27/22 18:19 Temperature 97.7 F L Temperature Source Temporal Pulse Rate 57 L Respiratory Rate 19 H Respiratory Effort Short of Breath Respiratory Depth Shallow Respiratory Pattern Tachypnea Blood Pressure 175/96 H Blood Pressure Mean 122 Pulse Ox 96 78 Oxygen Delivery Method Non-Rebreather Room Air Room Air Oxygen Flow Rate (L/min) 15 Fraction of Inspired Oxygen (FIO2) 08/27/22 18:19 08/27/22 19:17 08/27/22 19:17 Temperature Temperature Source Pulse Rate 87 Respiratory Rate 21 H Respiratory Effort Respiratory Depth Respiratory Pattern Blood Pressure 183/84 H Blood Pressure Mean 117 Pulse Ox 93 93 Oxygen Delivery Method Non-Rebreather High Flow High Flow Oxygen Flow Rate (L/min) 15 10 10 Fraction of Inspired Oxygen (FIO2) 08/27/22 20:08 Temperature Temperature Source Pulse Rate 93 Respiratory Rate 24 H Respiratory Effort Respiratory Depth Respiratory Pattern Tachypnea Blood Pressure Blood Pressure Mean Pulse Ox 93 Oxygen Delivery Method Oxygen Flow Rate (L/min) Fraction of Inspired Oxygen (FIO2) 50 Weight Weight: 107.501 kg Body Mass Index (BMI) 34.0 Physical Exam Narrative Physical exam: General: Well-nourished, well-developed. Head: Normocephalic, atraumatic, no tenderness Eyes: Vision is grossly intact. EOMI ENT, no trauma, moist mucous membranes, no rhinorrhea Neck: Nontender, No thyromegaly. CVS: Regular rate and rhythm. S1-S2 present. No murmur, gallop or rub. Respiratory : On BiPAP, tachypnea, diminished, chest wall nontender Abdomen: Soft, nontender, nondistended, normal bowel sounds, no masses : Deferred Back: Nontender, no CVA tenderness, no midline spinal tenderness, deformities, step-offs Extremities: Nontender full range of motion, no trauma Skin: Normal color, no trauma, abrasions Neuro: Alert, cranial nerves II through XII grossly intact. Psychiatry: Normal mood. Normal affect. Results Lab / Micro Data Result Diagrams: 08/27/22 18:56 08/27/22 18:56 Labs: Laboratory Results - last 24 hr 08/27/22 18:56: WBC 7.4, RBC 3.33 L, Hgb 10.1 L, Hct 32.5 L, MCV 97.6 H, MCH 30.3, MCHC 31.1 L, RDW Std Deviation 48.9 H, RDW Coeff of Shashank 13.7, Plt Count 282, MPV 11.0, Immature Gran % (Auto) 0.400, Neut % (Auto) 75.3 H, Lymph % (Auto) 10.9 L, Bent % (Auto) 10.1 H, Eos % (Auto) 2.8, Baso % (Auto) 0.5, Absolute Neuts (auto) 5.6, Absolute Lymphs (auto) 0.81 L, Nucleated RBC % 0, Differential Comment SCANNED 08/27/22 18:56: Sodium 136, Potassium 5.0, Chloride 99, Carbon Dioxide 35.0 H, Anion Gap 2 L, BUN 41 H, Creatinine 3.05 H, Estim Creat Clear Calc 22.27, Est GFR (MDRD) Af Amer 26 L, Est GFR (MDRD) Non-Af 22 L, BUN/Creatinine Ratio 13.4, Glucose 156 H, Calcium 9.5, Troponin I High Sens 23 08/27/22 18:56: B-Natriuretic Peptide 647.1 H 08/27/22 19:32: D-Dimer Quant (PE/DVT) 0.64 H* ABG Data ABG results: ABG 08/27/22 19:59 Specimen Type ART Sample Site R Radial pH 7.27 L Bicarbonate Actual 36.5 H Total CO2 39 Base Excess 10 H O2 Saturation 46 L ABG pCO2 78.8 H* ABG pO2 30 L* Adan Test Positive O2 Delivery Device HFNC Liter Flow 10.0 Crit Call To/Read Back Yes Blood Gas Notified Whom Jhony Radiology Impression Chest X-Ray 08/27/22 18:43 IMPRESSION: Pulmonary interstitial prominence. Electronically Signed: Prasanna Jessica DO at 19:25 EDT Reading Location ID and State: [facility] / [place] Tel [phone], Service support , Assessment & Plan Assessment/Plan (1) Essential hypertension: (2) Respiratory failure: QUALIFIERS: Chronicity: acute (3) Acute hypercapnic respiratory failure: (4) Acute hypoxemic respiratory failure: (5) Heart failure: QUALIFIERS: Heart failure type: unspecified Heart failure chronicity: acute Qualified Code(s): I50.9 - Heart failure, unspecified PLAN: Plan Acute hypoxemic and hypercapnic respiratory likely secondary to acute heart failure. Unspecified whether systolic or diastolic VBG showed pH of 7.27; PCO2 of 78.8; PO2 of 30. Check respiratory pathogen panel. Place on monitored bed on PCU Weight on admission to the floor; and then daily Strict I&O's Impression of chest x-ray by radiology: Pulmonary interstitial prominence CXR independently interpreted by hospitalist: Agrees with the interpretation Emergency department labs reviewed showed BNP of 647.1. Of note previous records showed BNP of 222.7 on 08/06/2022 Lasix 40 mg IV push twice daily ordered. On presentation potassium is high normal at 5. Transthoracic echocardiogram to evaluate left ventricular wall motion and systolic function. Monitor electrolytes and renal function Fluid restriction of 1500 mls daily Continue BiPAP. N.p.o. except meds if patient can tolerate while on BiPAP. When off BiPAP place on cardiac and diabetic diet. Hypertensive chronic kidney disease with CKD stage IV Stable Trend BMP. Hypertension Blood pressure is not within goal Home blood pressure medication continued. As needed hydralazine ordered. Trend blood pressure and adjust blood pressure medications. Diabetes mellitus Blood glucose on presentation was stable. Hold basal insulin. Accu-Chek with correction scale insulin ordered. Correction scale insulin ordered. DVT prophylaxis Subcutaneous Lovenox ordered. Charges/Coding Visit Charges Inpatient E&M: 77420 Init Hosp L3
[2022-08-27 21:01] LABS: Reflex Troponin-HS? (from REC) Y
[2022-08-27] MEDS: Furosemide 40 MG/4 ML Vial IV (21:15)
[2022-08-27 21:33] LABS: Troponin-I HS 26 pg/mL (3.0-78.0)
--- NOTE | 2022-08-27 21:55 | EKG12_ITS ---
Test Reason : DYSRHYTHMIA Blood Pressure : / mmHG Vent. Rate : 077 BPM Atrial Rate : 326 BPM P-R Int : 000 ms QRS Dur : 088 ms QT Int : 350 ms P-R-T Axes : 000 -25 052 degrees QTc Int : 396 ms Suspect unspecified pacemaker failure Atrial fibrillation with occasional ventricular-paced complexes Abnormal ECG Confirmed by GRETA JASON, CHARI ([id number]), associate entertainment editor VENTURA FINK ([id number]) on 08/28/2022 9:38:14 AM Referred By: ANGEL Confirmed By:CHARI HERNANDES MD
--- NOTE | 2022-08-27 21:59 | ED.RN ---
Hospitalist notified of pt EKG change on 3-lead. Order to obtain another 12 lead EKG.
--- NOTE | 2022-08-27 23:04 | ECHOCS_ITS ---
Reason For Study: CHF Procedure This was a 2D Doppler, Color Flow transthoracic echocardiogram. Contrast injection was performed. Exam performed portable in patient room. Left Ventricle Normal LV size. Moderate concentric left ventricular hypertrophy. Left ventricular systolic function is normal. The estimated ejection fraction is 55 %. No regional wall motion abnormalities noted. Right Ventricle Normal RV size. Normal systolic function. Atria Normal left atrium. Normal right atrium. Mitral Valve Bileaflet diffuse mitral valve thickening. Mild (1+) eccentric mitral valve insufficiency. Tricuspid Valve Normal tricuspid valve. Mild tricuspid valve insufficiency. Pulmonary artery systolic pressure is 37 mmHg. Aortic Valve Trisinus/trileaflet aortic valve. Pulmonic Valve The pulmonic valve is not well visualized. Great Vessels Normal aortic root. The pulmonary artery is normal size. Normal inferior vena cava. Pericardium/Pleural No pericardial effusion. Medication Diluted definity 3ml given slow IV push to enhance endocardial definition. MMode/2D Measurements & Calculations LVIDd: 4.9 cm IVSd: 1.5 cm Ao root diam: 3.2 cm LVIDs: 3.6 cm LVPWd: 1.3 cm RVDd: 4.0 cm FS: 26.0 % LAV(MOD-bp): 54.9 ml LVAd ap4: 25.5 cm2 SV(MOD-sp4): 37.6 ml LAV(MOD-bp) Indexed: 24.9 ml/m2 LVLd ap4: 7.1 cm LAV(MOD-sp2): 55.8 ml EDV(MOD-sp4): 75.6 ml LAV(MOD-sp4): 49.8 ml EDV(sp4-el): 78.3 ml LVAs ap4: 17.3 cm2 LVLs ap4: 6.6 cm ESV(MOD-sp4): 37.9 ml ESV(sp4-el): 38.4 ml EF(MOD-sp4): 49.8 % EF(sp4-el): 50.9 % SV(sp4-el): 39.9 ml LA A4 area: 19.1 cm2 LA dimension(2D): 5.0 cm RA A4 area: 10.7 cm2 Doppler Measurements & Calculations MV E max kenna: 99.3 cm/sec Ao V2 max: 106.4 cm/sec LV V1 max: 83.3 cm/sec Ao max P.5 mmHg LV V1 max P.8 mmHg Ao V2 mean: 81.6 cm/sec Ao mean P.8 mmHg Ao V2 VTI: 20.3 cm PA V2 max: 75.7 cm/sec PI end-d kenna: 151.4 cm/sec TR max kenna: 287.7 cm/sec TR max P.1 mmHg ECHO/Echo Complete W/ Contrast Interpretation Summary Normal LV size. Moderate concentric left ventricular hypertrophy. Left ventricular systolic function is normal. The estimated ejection fraction is 55 %. Pulmonary artery systolic pressure is 37 mmHg. Contrast injection was performed. Ordering Physician: Kishor Torres Referring Physician: Jace Fallon Performed By: Divya Sawant RVT, RDCS and Student
[2022-08-27] MEDS: Dextrose 50%-Water 25 GM/50 ML DISP.SYRIN IV (23:37)
[2022-08-27] MEDS: 0.9% Saline Lock 10 ML Syringe IV (23:41)
[2022-08-28] VITALS (12 sets, daily range): BP systolic 150–186; BP diastolic 72–90; PULSE 63–93; RESP 12–21; TEMP 36.1–36.8; O2SAT 93–98; BMI 32.5
[2022-08-28 01:15] LABS: Bedside Glucose 30 mg/dL (74-106)
[2022-08-28 01:15] LABS: Bedside Glucose 143 mg/dL (74-106)
--- NOTE | 2022-08-28 04:18 | NURSING ---
BG to be obtained Q1hour x 4 per then Q4 hrs as ordered after that .
[2022-08-28] MEDS: Dextrose 50%-Water 25 GM/50 ML DISP.SYRIN IV (04:30)
[2022-08-28] MEDS: 0.9% Saline Lock 10 ML Syringe IV ×2 (04:31→07:58)
[2022-08-28 06:08] LABS: Blood Gas Specimen Type VEN
[2022-08-28 06:50] LABS: Bedside Glucose 78 mg/dL (74-106)
[2022-08-28 06:50] LABS: Bedside Glucose 156 mg/dL (74-106)
--- NOTE | 2022-08-28 07:41 | PCM.PN.HOSP ---
Reason for Visit Reason for Visit: Diagnoses Essential (primary) hypertension (08/27/22) Heart failure, unspecified (08/27/22) Acute respiratory failure with hypoxia (08/27/22) Acute respiratory failure with hypercapnia (08/27/22) Respiratory failure, unspecified, unspecified whether with hypoxia or hypercapnia (08/27/22) Subjective Subjective Patient flustered today and reports he hates his psychiatrist he goes to and he listed various things/complaints that he is not happy with across multiple settings, reports he gets panic attacks and alternated between tearful and yelling Objective Data Objective Data Vital Signs: Vital Signs Temp Pulse Resp BP Pulse Ox O2 Del Method O2 Flow Rate 97 F L 71 17 150/90 H 93 Bi-pap 10 08/28/22 05:00 08/28/22 05:15 08/28/22 05:15 08/28/22 05:00 08/28/22 05:15 08/28/22 05:15 08/27/22 19:17 FiO2 25 08/28/22 05:15 Oxygen Flow Rate (L/min) 10 Oxygen Delivery Method Bi-pap Weight: 102.9 kg Body Mass Index (BMI) 32.5 Intake & Output: Intake and Output for Last 24 Hours 08/26/22 08/27/22 08/28/22 23:59 23:59 23:59 Output Total 1999 Balance -1999 Lab / Micro Data Result Diagrams: 08/28/22 08:05 08/28/22 08:05 Labs: Laboratory Results - last 24 hr 08/27/22 18:56: WBC 7.4, RBC 3.33 L, Hgb 10.1 L, Hct 32.5 L, MCV 97.6 H, MCH 30.3, MCHC 31.1 L, RDW Std Deviation 48.9 H, RDW Coeff of Shashank 13.7, Plt Count 282, MPV 11.0, Immature Gran % (Auto) 0.400, Neut % (Auto) 75.3 H, Lymph % (Auto) 10.9 L, [place] % (Auto) 10.1 H, Eos % (Auto) 2.8, Baso % (Auto) 0.5, Absolute Neuts (auto) 5.6, Absolute Lymphs (auto) 0.81 L, Nucleated RBC % 0, Differential Comment SCANNED 08/27/22 18:56: Sodium 136, Potassium 5.0, Chloride 99, Carbon Dioxide 35.0 H, Anion Gap 2 L, BUN 41 H, Creatinine 3.05 H, Estim Creat Clear Calc 22.27, Est GFR (MDRD) Af Amer 26 L, Est GFR (MDRD) Non-Af 22 L, BUN/Creatinine Ratio 13.4, Glucose 156 H, Calcium 9.5, Troponin I High Sens 23 08/27/22 18:56: B-Natriuretic Peptide 647.1 H 08/27/22 19:32: D-Dimer Quant (PE/DVT) 0.64 H* 08/27/22 21:05: Troponin I High Sens 26 08/27/22 23:35: POC Glucose 30 L* 08/27/22 23:56: POC Glucose 143 H 08/28/22 03:43: POC Glucose 78 08/28/22 05:59: POC Glucose 156 H Micro: Microbiology 08/27/22 23:20 Mucosa - Nasopharyngeal Respiratory Panel (PCR) - Final ABG Data ABG results: ABG 08/27/22 19:59 Specimen Type ARY Sample Site R Radial pH 7.27 L Bicarbonate Actual 36.5 H Total CO2 39 Base Excess 10 H O2 Saturation 46 L ABG pCO2 78.8 H* ABG pO2 30 L* Adan Test Positive O2 Delivery Device HFNC Liter Flow 10.0 Crit Call To/Read Back Yes Blood Gas Notified Whom Jhony Radiography Diagnostic Testing: Radiology Impression Chest X-Ray 08/27/22 18:43 IMPRESSION: Pulmonary interstitial prominence. Electronically Signed: Prasanna Jessica DO at 19:25 EDT Reading Location ID and State: [facility] / [place] Tel [phone], Service support , Physical Exam Narrative General: Alert, irritable HEENT: Atraumatic, normocephalic Eyes: Anicteric, normal conjunctiva, extraocular movements grossly intact Neck: Supple Respiratory: Possibly some scattered wheezes, diminished at the bases Cardiovascular: Regular rate GI: Soft, nontender Extremities: No significant pitting edema Musculoskeletal: Moving all extremities Neuro: No overt focal neurological deficits Skin: No rashes appreciated Psych: Irritable and labile, tearful at times Assessment & Plan Assessment/Plan (1) Acute hypoxemic respiratory failure: (2) Acute hypercapnic respiratory failure: (3) Schizoaffective disorder: (4) History of coronary artery stent placement: PLAN: Plan #Acute hypoxia and hypercapnia, suspect secondary to fluid overload -PO2 on venous was 30 with a PCO2 of 78.8 -D-dimer 0.64, given kidney function CTA not pursued but suspect that this is less likely as culprit and is likely under upper limit of normal for his age -Chest x-ray with increased interstitial prominence -BNP 647, troponin 23 and then 26 see no delta elevation -Responded well to BiPAP and Lasix and is on Lasix 40 IV twice daily -Monitor I's and O's and daily weights -Did have some wheezing on exam, will give neb treatment and albuterol. -Echo ordered and history of moderate concentric left ventricular hypertrophy with EF of 55% and PASP of 37% but did not comment on diastolic dysfunction -Given lab and imaging as well as clinical presentation do feel this is due to overload, continue present management -Fluid restriction 1500 #Type 2 diabetes mellitus with hypoglycemic episode -Had a glucose of 30 on presentation and has been low 100s since then -Appears he is on 38 units of glargine nightly as well as you 100 lispro 3 times dailycm -Continue Accu-Cheks, will need to monitor for resumption of his insulin #CKD stage IV -Seems to be at baseline -Did K of 5.3 today will give dose of Kayexalate #Schizoaffective disorder with behavioral disturbance/history of TBI -Presently on Invega Sustenna monthly injection, Trileptal 450 twice daily, Zoloft 100, Cymbalta 60 twice daily, Neurontin 600 twice daily, Lamictal 100, Risperdal 1.5 mg twice daily as well as and trazodone 50 mg at bedtime and BuSpar 5 3 times daily -Patient should not be on both Zoloft and Cymbalta together as one is SSRI and the other is SNRI and they should not be used together. Additionally given his creatinine clearance less than 30 he should not be on Cymbalta. We will stop this medication at this time as given his very low creatinine clearance is likely that this medication will be cleared slowly and likely does not need prolonged taper -Additionally he is on 600 of gabapentin twice daily and with his creatinine clearance less than 30 he should be on less than 700 mg daily, will decrease this to 300 mg twice daily #Hypothyroidism -Continue Synthroid -TSH 06/14/2022 was 1.27 #Hypertension -Continue to adjust medications #History of permanent pacemaker secondary to complete heart block -In December 2020 #History of coronary artery disease with PCI -STEMI in October 2017 w/ PCI-LAURE to mid LAD w/ 2.5 X 20 mm Promus 11/19/17 #Atrial fibrillation paroxysmal -On carvedilol -Does not appear to be on chronic anticoagulation -Follows with Dr. Gonzáles last seen in 2020 #DVT ppx: Lovenox subcu Kari Ramos MD Time spent in the patient's overall evaluation,decision-making process, review of diagnostic data, adjustment of management, discussion with other providers, nursing nursing and ancillary staff involved in patient's care documentation, 45 minutes Charges/Coding Visit Charges Inpatient E&M: 14582 Subs Hosp L3
[2022-08-28] MEDS: Senna Tablet 1 TABLET PO ×2 (07:44)
[2022-08-28] MEDS: Ferrous Sulfate 325 MG Tablet PO (07:44)
[2022-08-28] MEDS: Enoxaparin 30 MG/0.3 ML Syringe SC (07:44)
[2022-08-28] MEDS: Fenofibrate 145 MG Tablet PO (07:45)
[2022-08-28] MEDS: Sertraline 100 MG Tablet PO (07:45)
[2022-08-28] MEDS: Carvedilol 6.25 MG Tablet PO (07:45)
[2022-08-28] MEDS: Furosemide 40 MG/4 ML Vial IV ×2 (07:45→16:59)
[2022-08-28] MEDS: lamoTRIgine 100 MG Tablet PO (07:45)
[2022-08-28] MEDS: Multivitamins,Therapeutic Tablet 1 TABLET PO (07:46)
[2022-08-28] MEDS: Loratadine 10 MG Tablet PO (07:46)
[2022-08-28] MEDS: Cholecalciferol (VIT D3) 25 MCG TABLET (1,000 UNITS) PO (07:46)
[2022-08-28] MEDS: DULoxetine Hcl 60 MG Capsule PO (07:46)
[2022-08-28] MEDS: amLODIPine 10 MG Tablet PO (07:46)
[2022-08-28] MEDS: Triamcinolone Acetonide 0.1% Cream 15 gm 1 APPLIC TOPICAL ×2 (07:47→21:42)
[2022-08-28] MEDS: OXcarbazepine 300 MG Tablet PO ×2 (07:48→21:44)
[2022-08-28] MEDS: RisperiDONE 1 MG Tablet 1.5 MG PO ×2 (07:48→21:44)
[2022-08-28] MEDS: OXcarbazepine 150 MG Tablet PO ×2 (07:48→21:43)
[2022-08-28] MEDS: Gabapentin 600 MG Tablet PO (07:57)
[2022-08-28 08:22] LABS: Absolute Lymphocyte Count 0.76 X10^3/uL (0.83-4.51); Absolute Neutrophil Count 7.1 X10^3/uL (2.0-7.7); Basophil# 0.05 X10^3/uL; Basophil% 0.5 % (0-1); Eosinophil# 0.18 X10^3/uL; Hematocrit 34.8 % (40-54); Lymphocyte # 0.76 X10^3/ul (0.83-4.51); Lymphocyte % 8.3 % (19-41); Mean Corp Hgb Conc 31.6 g/dL (32-36); Mean Corpuscular Hgb 31.2 pg (27.0-32.0); Mean Corpuscular Volume 98.6 fL (80-94); Mean Platelet Vol. 9.6 fl (6.2-12.0); Monocyte# 1.06 X10^3/uL; Monocyte% 11.5 % (0-10); NRBC Flagged by Analyzer 0 % (0-5); Neutrophil # 7.11 X10^3/uL (2.7-7.7); Neutrophil % 77.4 % (47-70); Platelet Count 348 K/mm3 (150-450); RBC Distribution Width CV 13.6 % (11.6-14.6); RBC Distribution Width SD 49.6 fl (35.1-43.9); Red Blood Count 3.53 M/mm3 (4.6-6.2); White Blood Count 9.2 K/mm3 (4.4-11.0)
[2022-08-28 08:51] LABS: Anion Gap 2 (5-15); BUN 41 mg/dL (7-18); BUN/Creat Ratio 13.5 RATIO (10-20); Calcium,Total 10.1 mg/dL (8.5-10.1); Chloride 101 mmol/L (98-107); Creatinine, Serum 3.03 mg/dL (0.70-1.30); EST Glomerular Filtration Rate 22 mL/min (>60); Est Glom Filt Rate - Afr Amer 26 mL/min (>60); Estimated Creatinine Clearance 22.42 ml/min; Glucose 180 mg/dL (74-106); Potassium 5.3 mmol/L (3.5-5.1); Sodium Level 137 mmol/L (136-145)
--- NOTE | 2022-08-28 09:28 | CASEMGMT ---
Discharge Planning Patient will return to [facility]. Referral started in [facility]. Requested POA/guardianship papers. Jess Hogan
--- NOTE | 2022-08-28 09:33 | CASEMGMT ---
Discharge Planning Patient is a bedhold at [facility] and will not require a pre-cert to return. notified. Jess Hogan
[2022-08-28 09:35] LABS: Bedside Glucose 147 mg/dL (74-106)
[2022-08-28] MEDS: Aspirin E.C. 81 MG Tablet PO (10:00)
[2022-08-28] MEDS: Ipratropium/Albuterol Sulfate 3 ML AMPUL.NEB INHALATION (12:11)
[2022-08-28 12:35] LABS: Bedside Glucose 223 mg/dL (74-106)
[2022-08-28] MEDS: Sodium Polystyrene Sulfonate 15 GM/60 ML UDC PO (12:38)
[2022-08-28] MEDS: Acetaminophen 500 MG Tablet 1000 MG PO ×2 (12:39→21:43)
[2022-08-28] MEDS: busPIRone 5 MG Tablet PO ×2 (12:39→21:42)
[2022-08-28 18:06] LABS: Bedside Glucose 231 mg/dL (74-106)
[2022-08-28] MEDS: Polyethylene Glycol 3350 17 GM PACKET PO (21:43)
[2022-08-28] MEDS: traZODone 50 MG Tablet PO (21:44)
[2022-08-28] MEDS: Insulin Lispro 100 UNIT/ML INSULN.PEN SC (21:47)
[2022-08-28] MEDS: Gabapentin 600 MG Tablet 300 MG PO (21:48)
[2022-08-28 22:17] LABS: Bedside Glucose 158 mg/dL (74-106)
[2022-08-29] VITALS (9 sets, daily range): BP systolic 123–186; BP diastolic 70–90; PULSE 70–92; RESP 12–21; TEMP 36.3–36.9; O2SAT 91–96; BMI 30.7
[2022-08-29 06:07] LABS: Absolute Lymphocyte Count 1.32 X10^3/uL (0.83-4.51); Absolute Neutrophil Count 4.9 X10^3/uL (2.0-7.7); Basophil# 0.05 X10^3/uL; Basophil% 0.6 % (0-1); Eosinophil# 0.44 X10^3/uL; Eosinophils% 5.6 % (0-5); Hematocrit 35.3 % (40-54); Hemoglobin 11.2 g/dL (13.0-16.5); Lymphocyte # 1.32 X10^3/ul (0.83-4.51); Lymphocyte % 16.9 % (19-41); Mean Corp Hgb Conc 31.7 g/dL (32-36); Mean Corpuscular Hgb 30.5 pg (27.0-32.0); Mean Corpuscular Volume 96.2 fL (80-94); Mean Platelet Vol. 9.4 fl (6.2-12.0); Monocyte# 1.06 X10^3/uL; Monocyte% 13.6 % (0-10); NRBC Flagged by Analyzer 0 % (0-5); Neutrophil # 4.91 X10^3/uL (2.7-7.7); Neutrophil % 62.9 % (47-70); Platelet Count 350 K/mm3 (150-450); RBC Distribution Width CV 13.7 % (11.6-14.6); RBC Distribution Width SD 48.6 fl (35.1-43.9); Red Blood Count 3.67 M/mm3 (4.6-6.2); White Blood Count 7.8 K/mm3 (4.4-11.0)
[2022-08-29] MEDS: Acetaminophen 500 MG Tablet 1000 MG PO ×3 (06:49→20:46)
[2022-08-29] MEDS: busPIRone 5 MG Tablet PO ×3 (06:49→20:47)
--- NOTE | 2022-08-29 07:04 | PCM.PN.HOSP ---
Reason for Visit Reason for Visit: Diagnoses Schizoaffective disorder, unspecified (08/27/22) Essential (primary) hypertension (08/27/22) Heart failure, unspecified (08/27/22) Acute respiratory failure with hypoxia (08/27/22) Acute respiratory failure with hypercapnia (08/27/22) Respiratory failure, unspecified, unspecified whether with hypoxia or hypercapnia (08/27/22) Presence of coronary angioplasty implant and graft (08/27/22) Subjective Subjective Patient generally upset but does report his breathing is feeling better and was fairly cooperative during my exam Objective Data Objective Data Vital Signs: Vital Signs Temp Pulse Resp BP Pulse Ox O2 Del Method O2 Flow Rate 98 F 92 18 157/90 H 92 Nasal Cannula 2 08/29/22 06:40 08/29/22 06:40 08/29/22 06:40 08/29/22 06:40 08/29/22 06:40 08/29/22 06:40 08/29/22 06:40 FiO2 30 08/29/22 03:12 Oxygen Flow Rate (L/min) 2 Oxygen Delivery Method Nasal Cannula Weight: 97 kg Body Mass Index (BMI) 30.7 Intake & Output: Intake and Output for Last 24 Hours 08/27/22 08/28/22 08/29/22 23:59 23:59 23:59 Intake Total 240 / 240 Output Total 4625 / 4625 Balance -4385 / -4385 Lab / Micro Data Result Diagrams: 08/29/22 06:00 08/29/22 06:00 Labs: Laboratory Results - last 24 hr 08/28/22 07:38: POC Glucose 147 H 08/28/22 08:05: WBC 9.2, RBC 3.53 L, Hgb 11.0 L, Hct 34.8 L, MCV 98.6 H, MCH 31.2, MCHC 31.6 L, RDW Std Deviation 49.6 H, RDW Coeff of Shashank 13.6, Plt Count 348, MPV 9.6, Immature Gran % (Auto) 0.300, Neut % (Auto) 77.4 H, Lymph % (Auto) 8.3 L, [place] % (Auto) 11.5 H, Eos % (Auto) 2.0, Baso % (Auto) 0.5, Absolute Neuts (auto) 7.1, Absolute Lymphs (auto) 0.76 L, Nucleated RBC % 0 08/28/22 08:05: Sodium 137, Potassium 5.3 H, Chloride 101, Carbon Dioxide 34.0 H, Anion Gap 2 L, BUN 41 H, Creatinine 3.03 H, Estim Creat Clear Calc 22.42, Est GFR (MDRD) Af Amer 26 L, Est GFR (MDRD) Non-Af 22 L, BUN/Creatinine Ratio 13.5, Glucose 180 H, Calcium 10.1 08/28/22 12:17: POC Glucose 223 H 08/28/22 17:13: POC Glucose 231 H 08/28/22 21:34: POC Glucose 158 H 08/29/22 06:00: WBC 7.8, RBC 3.67 L, Hgb 11.2 L, Hct 35.3 L, MCV 96.2 H, MCH 30.5, MCHC 31.7 L, RDW Std Deviation 48.6 H, RDW Coeff of Shashank 13.7, Plt Count 350, MPV 9.4, Immature Gran % (Auto) 0.400, Neut % (Auto) 62.9, Lymph % (Auto) 16.9 L, [place] % (Auto) 13.6 H, Eos % (Auto) 5.6 H, Baso % (Auto) 0.6, Absolute Neuts (auto) 4.9, Absolute Lymphs (auto) 1.32, Nucleated RBC % 0 Micro: Microbiology 08/27/22 23:20 Mucosa - Nasopharyngeal Respiratory Panel (PCR) - Final Radiography Diagnostic Testing: Radiology Impression Echocardiogram 08/27/22 23:04 Interpretation Summary Normal LV size. Moderate concentric left ventricular hypertrophy. Left ventricular systolic function is normal. The estimated ejection fraction is 55 %. Pulmonary artery systolic pressure is 37 mmHg. Contrast injection was performed. Ordering Physician: Kishor Torres Referring Physician: Jace Fallon Performed By: Divya Sawant RVT, RDCS and Student Physical Exam Narrative General: Alert, irritable HEENT: Atraumatic, normocephalic Eyes: Anicteric, normal conjunctiva, extraocular movements grossly intact Neck: Supple Respiratory: No further wheezes appreciated, improved airflow Cardiovascular: Regular rate GI: Soft, nontender Extremities: No significant pitting edema Musculoskeletal: Moving all extremities Neuro: No overt focal neurological deficits Skin: No rashes appreciated Psych: Irritable and labile Assessment & Plan Assessment/Plan (1) Acute hypoxemic respiratory failure: (2) Acute hypercapnic respiratory failure: (3) Schizoaffective disorder: (4) History of coronary artery stent placement: PLAN: Plan #Acute hypoxia and hypercapnia, secondary to fluid overload -PO2 on venous was 30 with a PCO2 of 78.8 -D-dimer 0.64, given kidney function CTA not pursued but suspect that this is less likely as culprit and is likely under upper limit of normal for his age -Chest x-ray with increased interstitial prominence -BNP 647, troponin 23 and then 26 see no delta elevation -Responded well to BiPAP and Lasix and is on Lasix 40 IV twice daily -Monitor I's and O's and daily weights -Did have some wheezing on exam, will give neb treatment and albuterol. -Echo ordered and history of moderate concentric left ventricular hypertrophy with EF of 55% and PASP of 37 but did not comment on diastolic dysfunction -Given lab and imaging as well as clinical presentation do feel this is due to overload, continue present management -Fluid restriction 1500 -08/29: Patient with 107.5 kg per admission weight however several hours later his weight was 103 kg which was more consistent with previous and suspect this is the real weight on presentation, down to 97 kg, de-escalate Lasix today. Patient negative 2385 mL. Suspect patient has a component of diastolic dysfunction, 40 Lasix daily continue daily weights and I's and O's #Type 2 diabetes mellitus with hypoglycemic episode -Had a glucose of 30 on presentation and has been low 100s since then -Appears he is on 38 units of glargine nightly as well as you 100 lispro 3 times dailycm -Continue Accu-Cheks, will need to monitor for resumption of his insulin -08/29: Sliding scale coverage added, continue to monitor. 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 Additionally given his creatinine clearance less than 30 he should not be on Cymbalta. We will stop this medication at this time as given his very low creatinine clearance is likely that this medication will be cleared slowly and likely does not need prolonged taper -Additionally he is on 600 of gabapentin twice daily and with his creatinine clearance less than 30 he should be on less than 700 mg daily, will decrease this to 300 mg twice daily #Hypothyroidism -Continue Synthroid -TSH 06/14/2022 was 1.27 #Hypertension -Continue to adjust medications #History of permanent pacemaker secondary to complete heart block -In December 2020 #History of coronary artery disease with PCI -STEMI in October 2017 w/ PCI-LAURE to mid LAD w/ 2.5 X 20 mm Promus 11/19/17 #Atrial fibrillation paroxysmal -On carvedilol -Does not appear to be on chronic anticoagulation -Follows with Dr. Gonzáles last seen in 2020 #DVT ppx: Lovenox subcu Kari Ramos MD Time spent in the patient's overall evaluation,decision-making process, review of diagnostic data, adjustment of management, discussion with other providers, nursing nursing and ancillary staff involved in patient's care documentation, 36 minutes Charges/Coding Visit Charges Inpatient E&M: 28727 [facility] Hosp L3
[2022-08-29 07:05] LABS: ALB/GLOB Ratio 0.7 RATIO (0.9-2.4); AST(SGOT) 16 U/L (15-37); Alanine Aminotransfer ALT/SGPT 23 U/L (16-61); Albumin, Serum 2.9 g/dL (3.2-5.0); Alkaline Phosphatase 39 U/L (45-117); Anion Gap 5 (5-15); BUN 49 mg/dL (7-18); BUN/Creat Ratio 14.8 RATIO (10-20); Calcium,Total 9.6 mg/dL (8.5-10.1); Chloride 103 mmol/L (98-107); EST Glomerular Filtration Rate 20 mL/min (>60); Est Glom Filt Rate - Afr Amer 24 mL/min (>60); Estimated Creatinine Clearance 20.59 ml/min; Globulin 4.1 g/dL (2.2-4.2); Glucose 85 mg/dL (74-106); Potassium 4.1 mmol/L (3.5-5.1); Sodium Level 141 mmol/L (136-145)
[2022-08-29 07:12] LABS: Bedside Glucose 115 mg/dL (74-106)
[2022-08-29] MEDS: Sertraline 100 MG Tablet PO (09:21)
[2022-08-29] MEDS: Ferrous Sulfate 325 MG Tablet PO (09:21)
[2022-08-29] MEDS: Aspirin E.C. 81 MG Tablet PO (09:21)
[2022-08-29] MEDS: Multivitamins,Therapeutic Tablet 1 TABLET PO (09:21)
[2022-08-29] MEDS: Carvedilol 6.25 MG Tablet PO (09:21)
[2022-08-29] MEDS: Loratadine 10 MG Tablet PO (09:21)
[2022-08-29] MEDS: Senna Tablet 1 TABLET PO ×2 (09:22→20:51)
[2022-08-29] MEDS: Fenofibrate 145 MG Tablet PO (09:22)
[2022-08-29] MEDS: Triamcinolone Acetonide 0.1% Cream 15 gm 1 APPLIC TOPICAL ×2 (09:22→20:53)
[2022-08-29] MEDS: amLODIPine 10 MG Tablet PO (09:22)
[2022-08-29] MEDS: lamoTRIgine 100 MG Tablet PO (09:23)
[2022-08-29] MEDS: Enoxaparin 30 MG/0.3 ML Syringe SC (09:23)
[2022-08-29] MEDS: Cholecalciferol (VIT D3) 25 MCG TABLET (1,000 UNITS) PO (09:23)
[2022-08-29] MEDS: Gabapentin 600 MG Tablet 300 MG PO ×2 (09:32→21:03)
[2022-08-29] MEDS: Levothyroxine 112 MCG Tablet PO (09:32)
[2022-08-29] MEDS: Furosemide 40 MG Tablet PO (09:33)
[2022-08-29] MEDS: RisperiDONE 1 MG Tablet 1.5 MG PO ×2 (09:34→20:48)
[2022-08-29] MEDS: OXcarbazepine 150 MG Tablet PO ×2 (09:35→20:52)
[2022-08-29] MEDS: OXcarbazepine 300 MG Tablet PO ×2 (09:35→20:51)
[2022-08-29] MEDS: Polyethylene Glycol 3350 17 GM PACKET PO (09:39)
[2022-08-29] MEDS: Insulin Lispro 100 UNIT/ML INSULN.PEN SC ×3 (11:23→21:08)
--- NOTE | 2022-08-29 11:31 | CASEMGMT ---
Discharge Planning [facility] updated on discharge disposition via [employer]. Jess Hogan DC Planning Asst.
[2022-08-29 11:49] LABS: Bedside Glucose 328 mg/dL (74-106)
[2022-08-29 16:57] LABS: Bedside Glucose 228 mg/dL (74-106)
[2022-08-29] MEDS: Ibuprofen 400 MG Tablet PO (17:38)
[2022-08-29] MEDS: traZODone 50 MG Tablet PO (20:50)
[2022-08-29 22:11] LABS: Bedside Glucose 221 mg/dL (74-106)
[2022-08-30] VITALS (8 sets, daily range): BP systolic 131–138; BP diastolic 61–83; PULSE 86–87; RESP 16–18; TEMP 36.6–37; O2SAT 84–95; BMI 31.1
[2022-08-30 05:48] LABS: Absolute Lymphocyte Count 0.89 X10^3/uL (0.83-4.51); Absolute Neutrophil Count 7.2 X10^3/uL (2.0-7.7); Basophil# 0.04 X10^3/uL; Basophil% 0.4 % (0-1); Eosinophil# 0.55 X10^3/uL; Eosinophils% 5.6 % (0-5); Hematocrit 35.6 % (40-54); Hemoglobin 10.7 g/dL (13.0-16.5); Lymphocyte # 0.89 X10^3/ul (0.83-4.51); Lymphocyte % 9.1 % (19-41); Mean Corp Hgb Conc 30.1 g/dL (32-36); Mean Corpuscular Hgb 29.8 pg (27.0-32.0); Mean Corpuscular Volume 99.2 fL (80-94); Mean Platelet Vol. 9.3 fl (6.2-12.0); Monocyte% 11.2 % (0-10); NRBC Flagged by Analyzer 0 % (0-5); Neutrophil # 7.19 X10^3/uL (2.7-7.7); Neutrophil % 73.4 % (47-70); Platelet Count 337 K/mm3 (150-450); RBC Distribution Width CV 13.6 % (11.6-14.6); RBC Distribution Width SD 49.7 fl (35.1-43.9); Red Blood Count 3.59 M/mm3 (4.6-6.2); White Blood Count 9.8 K/mm3 (4.4-11.0)
[2022-08-30 06:27] LABS: ALB/GLOB Ratio 0.7 RATIO (0.9-2.4); AST(SGOT) 14 U/L (15-37); Alanine Aminotransfer ALT/SGPT 23 U/L (16-61); Albumin, Serum 2.7 g/dL (3.2-5.0); Alkaline Phosphatase 38 U/L (45-117); Anion Gap 5 (5-15); BUN 59 mg/dL (7-18); BUN/Creat Ratio 15.2 RATIO (10-20); Calcium,Total 9.8 mg/dL (8.5-10.1); Chloride 102 mmol/L (98-107); Creatinine, Serum 3.89 mg/dL (0.70-1.30); EST Glomerular Filtration Rate 16 mL/min (>60); Est Glom Filt Rate - Afr Amer 20 mL/min (>60); Estimated Creatinine Clearance 17.46 ml/min; Globulin 4.1 g/dL (2.2-4.2); Glucose 139 mg/dL (74-106); Potassium 4.3 mmol/L (3.5-5.1); Protein, Total 6.8 g/dL (6.4-8.2); Sodium Level 142 mmol/L (136-145)
[2022-08-30] MEDS: Levothyroxine 112 MCG Tablet PO (06:40)
[2022-08-30] MEDS: Acetaminophen 500 MG Tablet 1000 MG PO ×2 (06:40→15:07)
[2022-08-30] MEDS: busPIRone 5 MG Tablet PO ×2 (06:40→15:07)
[2022-08-30 07:05] LABS: Bedside Glucose 133 mg/dL (74-106)
--- NOTE | 2022-08-30 11:18 | TREXTCAR_ITS ---
Diet Diet Order/Speech Therapy: 08/28/22 09:23 Diet: Cardiac - Heart Healthy Is pt able to select menu?: No Routine Orders/Code Status Suppository Type: Dulcolax 10mg Suppository Frequency: Daily PRN O2 Liters per Minute: 3 O2 Frequency: Continuous Keep PO Greater than or Equal to (%): 90 Routine Lab Work: BMP (3-4) Code Status: Full Code Therapies Physical Therapy: Eval and Treat Occupational Therapy: Eval and Treat Problem/Diagnosis (1) Acute hypoxemic respiratory failure: Status: Acute Code(s): J96.01 - Acute respiratory failure with hypoxia (2) Acute hypercapnic respiratory failure: Status: Acute Code(s): J96.02 - Acute respiratory failure with hypercapnia (3) Schizoaffective disorder: Status: Chronic Code(s): F25.9 - Schizoaffective disorder, unspecified (4) History of coronary artery stent placement: Status: Chronic Code(s): Z95.5 - Presence of coronary angioplasty implant and graft Comment: PCI-LAURE to mid LAD w/ 2.5 X 20 mm Promus 11/19/17 Plan #Acute hypoxia and hypercapnia, secondary to fluid overload #Type 2 diabetes mellitus with hypoglycemic episode #CKD stage IV #Schizoaffective disorder with behavioral disturbance/history of TBI #Hypothyroidism #Hypertension #History of permanent pacemaker secondary to complete heart block #History of coronary artery disease with PCI-STEMI in October 2017 w/ PCI-LAURE to mid LAD w/ 2.5 X 20 mm Promus 11/19/17 #Atrial fibrillation paroxysmal 71-year-old male with history of CKD stage IV, type 2 diabetes, schizoaffective disorder bipolar type with behavioral disturbance, hypothyroidism who resides at [facility] presented to [facility] 08/27/2022 with hypoxia. He uses O2 at bedtime at baseline however he was requiring 4 L to saturate 80% at the senior living. In the ED his O2 sat was 70% and on VBG he was hypercapnic with a PCO2 of 78.8 and had a PaO2 of 30. He had a chest x-ray which showed some pulmonary interstitial prominence and his BNP was 647 with BNP 3 weeks ago of 222. He was started on IV Lasix twice daily and TTE was obtained. Patient required being placed on BiPAP in the ED. He improved with IV Lasix and his weight of 103 down trended to 97/98 and his Lasix were de- escalated to p.o. His echo showed moderate concentric left ventricular hypertrophy with an EF of 55 and PASP of 37 but did not comment on diastolic dysfunction but based on his clinical picture and BNP he was fluid overloaded and improved with diuresis. Creatinine did trend up with aggressive diuresis however suspect it was due to patient being Lasix na?ve and slightly over diuresed to rapidly improve his respiratory status given his increased BUN as well as increased bicarb likely contributed to by contraction alkalosis. Given patient feeling much better suspect we can hold diuresis for 2 days and resume at lower dose chronically and do not feel he needs to be kept in the hospital for this and he can be discharged with recommendation of daily weights and Lasix 20 mg to start daily 09/01 with repeat BMP checked. He did have several psychiatric medicine changes given his GFR and potential for medicine interactions especially with his Zoloft and Cymbalta together. Ultimately final medication management will be deferred to his prescribing physician and psychiatrist however would not recommend resuming Cymbalta if at all possible in addition to the Zoloft given close mechanism of action with increased risk of serotonin syndrome and creatinine clearance less than 30. During hospitalization patient also paranoid and irritable but on day of discharge had no other acute complaints. Discharge instructions as follows: DISCHARGE INSTRUCTIONS PLEASE READ *Please take this with you to your next doctors appointment* -You came in with very low blood glucose on your glucose has remained variable but fairly well controlled with only sliding scale insulin so your long-acting has been held at this time and would recommend sliding scale insulin until appropriate long-acting dose can be established on an outpatient basis in your usual environment -Given your kidney function/creatinine clearance your duloxetine is contraindicated and it is also strongly advised they do not take this in conjunction with your Zoloft. Zoloft was continued -Due to your kidney function your gabapentin was also decreased to 300 twice a day. -You will be discharged on Lasix 20 mg daily, due to receiving high doses of IV Lasix to improve your respiratory status he did become slightly volume depleted so would restart Lasix at 20 mg on 09/01, this may need adjusted further in the future -Weigh yourself every day. A sudden weight gain can mean you are retaining fluid. Weigh yourself at the same time of day and in the same kind of clothes. Ideally, weigh yourself first thing in the morning after you empty your bladder, but before you eat breakfast. -Please call your physician if your weight goes up by more than 2 pounds in 1 day or 5 pounds in 1 week. This can be a sign that you are retaining more fluid than you should be. -Recommend BMP to check your kidney function and potassium in 3 to 4 days -He will need physical and Occupational Therapy eval and treat -Please call your primary care provider's office upon discharge to schedule a hospital follow up within 1 week. -For any concerning signs or symptoms please call 911 or proceed to the nearest emergency department Allergies/Procedures Done in Hospital Allergies atorvastatin [From Lipitor] Allergy (Verified 08/27/22 18:13) Unknown Penicillins Allergy (Verified 08/27/22 18:13) Unknown lisinopril Adverse Reaction (Unknown, Verified 08/27/22 18:13) unknown codeine Adverse Reaction (Verified 08/27/22 18:13) Upset Stomach doxycycline Adverse Reaction (Verified 08/27/22 18:13) Other lycopene Adverse Reaction (Verified 08/27/22 18:13) Other nickel Adverse Reaction (Verified 08/27/22 18:13) Rash Procedures: 2-D Echocardiogram Type of Care/Length of Stay Estimated LOS: More Than 30 Days Type of Care Needed: Intermediate Rehab Potential: Fair Prognosis: Fair Additional Orders/Day of Discharge Day of Discharge: 08/30/22 Dietary and Speech Recommendations Dietitian Recommendations/Changes: continue cardiac diet w/ fluid restriction as indicated; will monitor blood glucose and add CHO controlled diet if hyperglycemia is evident. Discharge Plan Admission Admit Date/Time: 08/27/22 21:15 Primary Reason for Your Visit: Shortness of breath Attending Provider: Kari Ramos Primary Care Provider: Jace Fallon Consulting Providers: Kishor Torres Instructions Patient Instructions: ED Fall Prevention Additional Instructions / Restrictions: DISCHARGE INSTRUCTIONS PLEASE READ *Please take this with you to your next doctors appointment* -You came in with very low blood glucose, your long-acting insulin has been decreased -Given your kidney function/creatinine clearance your duloxetine is contraindicated and it is also strongly advised they do not take this in conjunction with your Zoloft. Zoloft was continued -Due to your kidney function your gabapentin was also decreased to 300 twice a day. -You will be discharged on Lasix 20 mg daily, due to receiving high doses of IV Lasix to improve your respiratory status he did become slightly volume depleted so would restart Lasix at 20 mg on 09/01, this may need adjusted further in the future -Weigh yourself every day. A sudden weight gain can mean you are retaining fluid. Weigh yourself at the same time of day and in the same kind of clothes. Ideally, weigh yourself first thing in the morning after you empty your bladder, but before you eat breakfast. -Please call your physician if your weight goes up by more than 2 pounds in 1 day or 5 pounds in 1 week. This can be a sign that you are retaining more fluid than you should be. -Recommend BMP to check your kidney function and potassium in 3 to 4 days -Please call your primary care provider's office upon discharge to schedule a hospital follow up within 1 week. -For any concerning signs or symptoms please call 911 or proceed to the nearest emergency department Discharge Orders/Prescriptions Prescriptions: New polyethylene glycol 3350 17 gram Powder In Packet 17 g PO BID Qty: 100 0RF furosemide [Lasix] 20 mg tablet 20 mg PO DAILY Qty: 30 0RF Rx Instructions: Start 09/01/2022 insulin lispro [Humalog KwikPen Insulin] 100 unit/mL Insulin Pen See Protocol subcut ACHS Qty: 0 0RF Protocol: 1. Sliding Scale Insulin Low Dosing Condition: 150-224 mg/dl = 1 unit Condition: 225-299 mg/dl = 2 units Condition: 300-374 mg/dl = 3 units Condition: 375-499 mg/dl = 4 units Condition: Greater than 449 call physician Protocol Text: - Use for Total Daily Dose of Insulin 15-27 units - Thin, elderly, renal patients LOW DOSING ALGORITHM Continued aspirin 81 mg tablet,delayed release (DR/EC) 81 mg PO QDAY Hold Instructions: Resume on 01/22/21. nitroglycerin [Nitrostat] 0.4 mg tablet, sublingual 0.4 mg SUBLINGUAL Q5M PRN (Reason: CHEST PAIN) amlodipine 10 mg tablet 10 mg PO DAILY cholecalciferol (vitamin D3) 1,000 unit capsule 1,000 unit PO DAILY fenofibrate micronized 200 mg capsule 200 mg PO DAILY multivitamin 1 EACH tablet 1 tab PO DAILY carvedilol 6.25 MG tablet 6.25 mg PO DAILY levothyroxine 112 mcg tablet 112 mcg PO DAILY trazodone 50 mg Tablet 50 mg PO QHS Invega Sustenna 234 mg/1.5 mL Syringe 234 mg IM Q28D oxcarbazepine 150 mg tablet 150 mg PO BID acetaminophen 500 mg Tablet 1,000 mg PO TID triamcinolone acetonide 0.1 % cream 1 applic TOPICAL Q12H PRN (Reason: Rash) calcium polycarbophil [Fiber-Tabs] 625 mg Tablet 625 mg PO DAILY albuterol sulfate [Ventolin HFA] 90 mcg/actuation Hfa Aerosol Inhaler 2 puff INHALATION Q4H PRN (Reason: SHORTNESS OF BREATH ) risperidone 1 mg tablet 1.5 mg PO BID lamotrigine 100 mg tablet 100 mg PO DAILY loratadine 10 mg Tablet 10 mg PO DAILY buspirone 5 mg Tablet 5 mg PO TID cetirizine 10 mg Tablet 10 mg PO DAILY ferrous sulfate 325 mg (65 mg iron) Tablet 325 mg PO DAILY sertraline [Zoloft] 100 mg Tablet 100 mg PO DAILY guaifenesin 400 mg Tablet 400 mg PO BID sennosides 8.6 mg Tablet 8.6 mg PO Q12H oxcarbazepine 300 mg tablet 300 mg PO BID Changed gabapentin 600 mg Tablet 300 mg PO BID 30 Days Qty: 60 0RF Held insulin glargine 100 unit/mL (3 mL) insulin pen 38 unit subcut QHS Hold Instructions: Resume on 09/18/22. Please hold until determining what dose is needed chronically is glucose has been well controlled here and sliding scale insulin Discontinued duloxetine 60 mg Capsule,Delayed Release(Dr/Ec) 60 mg PO BID insulin lispro [Humalog U-100 Insulin] 100 unit/mL solution See Protocol subcut TIDCM Protocol: 6. Sliding Scale Insulin Custom Condition: mg/dl range Dose/Route: Number of Units Condition: 150-200 Dose/Route: 2 Condition: 201-250 Dose/Route: 4 Condition: 251-300 Dose/Route: 6 Condition: 301-350 Dose/Route: 8 Condition: 351-400 Dose/Route: 10 Condition: 401-450 Dose/Route: 12 Condition: 450> Instruction: CALL MD Protocol Text: Custom Sliding Scale Referrals / Follow Up: Jace Fallon MD [Primary Care Provider] - Within 1 Week Disposition Disposition (needs filled in before D/C Order can be placed): NonSkilled NH/Intermed Care
[2022-08-30] MEDS: Cholecalciferol (VIT D3) 25 MCG TABLET (1,000 UNITS) PO (11:31)
[2022-08-30] MEDS: OXcarbazepine 150 MG Tablet PO (11:31)
[2022-08-30] MEDS: Sertraline 100 MG Tablet PO (11:31)
[2022-08-30] MEDS: OXcarbazepine 300 MG Tablet PO (11:31)
[2022-08-30] MEDS: Aspirin E.C. 81 MG Tablet PO (11:32)
[2022-08-30] MEDS: amLODIPine 10 MG Tablet PO (11:32)
[2022-08-30] MEDS: Fenofibrate 145 MG Tablet PO (11:32)
[2022-08-30] MEDS: lamoTRIgine 100 MG Tablet PO (11:32)
[2022-08-30] MEDS: RisperiDONE 1 MG Tablet 1.5 MG PO (11:32)
[2022-08-30] MEDS: Polyethylene Glycol 3350 17 GM PACKET PO (11:32)
[2022-08-30] MEDS: Carvedilol 6.25 MG Tablet PO (11:32)
[2022-08-30] MEDS: Enoxaparin 30 MG/0.3 ML Syringe SC (11:33)
[2022-08-30] MEDS: Loratadine 10 MG Tablet PO (11:33)
[2022-08-30] MEDS: Multivitamins,Therapeutic Tablet 1 TABLET PO (11:33)
[2022-08-30] MEDS: Ferrous Sulfate 325 MG Tablet PO (11:33)
[2022-08-30] MEDS: Senna Tablet 1 TABLET PO (11:34)
[2022-08-30] MEDS: Triamcinolone Acetonide 0.1% Cream 15 gm 1 APPLIC TOPICAL (11:43)
[2022-08-30] MEDS: Gabapentin 300 MG Capsule PO (11:52)
[2022-08-30] MEDS: Insulin Lispro 100 UNIT/ML INSULN.PEN SC (11:58)
--- NOTE | 2022-08-30 12:33 | DS.PCM_ITS ---
Providers Date of Admission: 08/27/22 Date of Discharge: 08/30/22 Primary Care Physician: Dr. Jace Fallon MD Reason For Visit: Shortness of breath Diagnosis Discharge Diagnosis (1) Acute hypoxemic respiratory failure: Status: Acute Code(s): J96.01 - Acute respiratory failure with hypoxia (2) Acute hypercapnic respiratory failure: Status: Acute Code(s): J96.02 - Acute respiratory failure with hypercapnia (3) Schizoaffective disorder: Status: Chronic Code(s): F25.9 - Schizoaffective disorder, unspecified (4) History of coronary artery stent placement: Status: Chronic Code(s): Z95.5 - Presence of coronary angioplasty implant and graft (5) Fluid overload: Status: Acute Code(s): E87.70 - Fluid overload, unspecified Plan #Acute hypoxia and hypercapnia, secondary to fluid overload #Type 2 diabetes mellitus with hypoglycemic episode #CKD stage IV #Schizoaffective disorder with behavioral disturbance/history of TBI #Hypothyroidism #Hypertension #History of permanent pacemaker secondary to complete heart block #History of coronary artery disease with PCI-STEMI in October 2017 w/ PCI-LAURE to mid LAD w/ 2.5 X 20 mm Promus 11/19/17 #Atrial fibrillation paroxysmal Medications at Discharge Home Medications multivitamin 1 tab PO DAILY HEALTH MAINTENANCE 09/07/16 aspirin 81 mg tablet,delayed release 81 mg PO QDAY [facility] 02/27/17 nitroglycerin 0.4 mg sublingual tablet (Nitrostat) 0.4 mg sublingual Q5M PRN CHEST PAIN 02/27/17 amlodipine 10 mg tablet 10 mg PO DAILY BLOOD PRESSURE 02/03/19 cholecalciferol (vitamin D3) 25 mcg (1,000 unit) capsule 1,000 unit PO DAILY SUPPLEMENT 02/03/19 carvedilol 6.25 mg tablet 6.25 mg PO DAILY HEART 03/25/20 levothyroxine 112 mcg tablet 112 mcg PO DAILY THYROID 09/23/20 paliperidone palmitate 234 mg/1.5 mL intramuscular syringe (Invega Sustenna) 234 mg IM Q28D SCHIZOPHRENIA 01/05/21 trazodone 50 mg tablet 50 mg PO QHS INSOMNIA 01/05/21 fenofibrate micronized 200 mg capsule 200 mg PO DAILY CHOLESTEROL 03/01/21 acetaminophen 500 mg tablet 1,000 mg PO TID PAIN 12/10/21 albuterol sulfate 90 mcg/actuation aerosol inhaler (Ventolin HFA) 2 puff inhalation Q4H PRN SHORTNESS OF BREATH 12/10/21 calcium polycarbophil 625 mg tablet (Fiber-Tabs) 625 mg PO DAILY CONSTIPATION 12/10/21 lamotrigine 100 mg tablet 100 mg PO DAILY MOOD 12/10/21 loratadine 10 mg tablet 10 mg PO DAILY RASH 12/10/21 oxcarbazepine 150 mg tablet 150 mg PO BID BIPOLAR DISORDER 12/10/21 risperidone 1 mg tablet 1.5 mg PO BID SCHIZOPHRENIA 12/10/21 triamcinolone acetonide 0.1 % topical cream 1 applic topical Q12H PRN Rash 12/10/21 buspirone 5 mg tablet 5 mg PO TID ANXIETY 08/06/22 cetirizine 10 mg tablet 10 mg PO DAILY ALLERGIES/RASH 08/06/22 ferrous sulfate 325 mg (65 mg iron) tablet 325 mg PO DAILY SUPPLEMENT 08/06/22 guaifenesin 400 mg tablet 400 mg PO BID CONGESTION 08/06/22 sertraline 100 mg tablet (Zoloft) 100 mg PO DAILY ANXIETY/DEPRESSION 08/06/22 insulin glargine 100 unit/mL (3 mL) subcutaneous pen 38 unit subcut QHS DIABETES 08/27/22 oxcarbazepine 300 mg tablet 300 mg PO BID BIPOLAR DISORDER 08/27/22 sennosides 8.6 mg tablet 8.6 mg PO Q12H CONSTIPATION 08/27/22 furosemide 20 mg tablet (Lasix) 20 mg PO DAILY #30 tabs 08/30/22 gabapentin 600 mg tablet 300 mg PO BID NERVE PAIN 30 days #60 tabs 08/30/22 insulin lispro 100 unit/mL subcutaneous pen (Humalog KwikPen (U-100) Insulin) See Protocol subcut ACHS #0 mL 08/30/22 polyethylene glycol 3350 17 gram oral powder packet 17 g PO BID #100 ea 08/30/22 Hospital Course Procedures 2-D Echocardiogram Summary of Care Provided Minutes Spent on Discharge: 40 Hospital Course: 71-year-old male with history of CKD stage IV, type 2 diabetes, schizoaffective disorder bipolar type with behavioral disturbance, hypothyroidism who resides at [facility] presented to [facility] 08/27/2022 with hypoxia. He uses O2 at bedtime at baseline however he was requiring 4 L to saturate 80% at the fdc. In the ED his O2 sat was 70% and on VBG he was hypercapnic with a PCO2 of 78.8 and had a PaO2 of 30. He had a chest x-ray which showed some pulmonary interstitial prominence and his BNP was 647 with BNP 3 weeks ago of 222. He was started on IV Lasix twice daily and TTE was obtained. Patient required being placed on BiPAP in the ED. He improved with IV Lasix and his weight of 103 down trended to 97/98 and his Lasix were de- escalated to p.o. His echo showed moderate concentric left ventricular hypertrophy with an EF of 55 and PASP of 37 but did not comment on diastolic dysfunction but based on his clinical picture and BNP he was fluid overloaded and improved with diuresis. Creatinine did trend up with aggressive diuresis however suspect it was due to patient being Lasix na?ve and slightly over di uresed to rapidly improve his respiratory status given his increased BUN as well as increased bicarb likely contributed to by contraction alkalosis. Given patient feeling much better suspect we can hold diuresis for 2 days and resume at lower dose chronically and do not feel he needs to be kept in the hospital for this and he can be discharged with recommendation of daily weights and Lasix 20 mg to start daily 09/01 with repeat BMP checked. He did have several psychiatric medicine changes given his GFR and potential for medicine interactions especially with his Zoloft and Cymbalta together. Ultimately final medication management will be deferred to his prescribing physician and psychiatrist however would not recommend resuming Cymbalta if at all possible in addition to the Zoloft given close mechanism of action with increased risk of serotonin syndrome and creatinine clearance less than 30. During hospitalization patient also paranoid and irritable but on day of discharge had no other acute complaints. Discharge instructions as follows: DISCHARGE INSTRUCTIONS PLEASE READ *Please take this with you to your next doctors appointment* -You came in with very low blood glucose on your glucose has remained variable but fairly well controlled with only sliding scale insulin so your long-acting has been held at this time and would recommend sliding scale insulin until appropriate long-acting dose can be established on an outpatient basis in your usual environment -Given your kidney function/creatinine clearance your duloxetine is contraindicated and it is also strongly advised they do not take this in conjunction with your Zoloft. Zoloft was continued -Due to your kidney function your gabapentin was also decreased to 300 twice a day. -You will be discharged on Lasix 20 mg daily, due to receiving high doses of IV Lasix to improve your respiratory status he did become slightly volume depleted so would restart Lasix at 20 mg on 09/01, this may need adjusted further in the future -Weigh yourself every day. A sudden weight gain can mean you are retaining fluid. Weigh yourself at the same time of day and in the same kind of clothes. Ideally, weigh yourself first thing in the morning after you empty your bladder, but before you eat breakfast. -Please call your physician if your weight goes up by more than 2 pounds in 1 day or 5 pounds in 1 week. This can be a sign that you are retaining more fluid than you should be. -Recommend BMP to check your kidney function and potassium in 3 to 4 days -He will need physical and Occupational Therapy eval and treat -Please call your primary care provider's office upon discharge to schedule a hospital follow up within 1 week. -For any concerning signs or symptoms please call 911 or proceed to the nearest emergency department Physical Exam Narrative General: Alert, pleasant HEENT: Atraumatic, normocephalic Eyes: Anicteric, normal conjunctiva, extraocular movements grossly intact Neck: Supple Respiratory: No further wheezes appreciated, improved airflow Cardiovascular: Regular rate, irregular rhythm GI: Soft, nontender Extremities: No significant pitting edema Musculoskeletal: Moving all extremities Neuro: No overt focal neurological deficits Skin: No rashes appreciated Psych: Very cooperative and pleasant Weight / BMI Weight Weight: 98.293 kg Body Mass Index (BMI) 31.1 ABG / Lab / Microbiology Data Result Diagrams: 08/30/22 05:40 08/30/22 05:40 Laboratory: Laboratory Results - last 24 hr 08/29/22 16:32: POC Glucose 228 H 08/29/22 21:07: POC Glucose 221 H 08/30/22 05:40: WBC 9.8, RBC 3.59 L, Hgb 10.7 L, Hct 35.6 L, MCV 99.2 H, MCH 29.8, MCHC 30.1 L D, RDW Std Deviation 49.7 H, RDW Coeff of Shashank 13.6, Plt Count 337, MPV 9.3, Immature Gran % (Auto) 0.300, Neut % (Auto) 73.4 H, Lymph % (Auto) 9.1 L, [place] % (Auto) 11.2 H, Eos % (Auto) 5.6 H, Baso % (Auto) 0.4, Absolute Neuts (auto) 7.2, Absolute Lymphs (auto) 0.89, Nucleated RBC % 0 08/30/22 05:40: Sodium 142, Potassium 4.3, Chloride 102, Carbon Dioxide 35.0 H, Anion Gap 5, BUN 59 H, Creatinine 3.89 H, Estim Creat Clear Calc 17.46, Est GFR (MDRD) Af Amer 20 L, Est GFR (MDRD) Non-Af 16 L, BUN/Creatinine Ratio 15.2, Glucose 139 H, Calcium 9.8, Total Bilirubin 0.30, AST 14 L, ALT 23, Alkaline Phosphatase 38 L, Total Protein 6.8, Albumin 2.7 L, Globulin 4.1, Albumin/Globulin Ratio 0.7 L 08/30/22 06:45: POC Glucose 133 H Microbiology: Microbiology 08/27/22 23:20 Mucosa - Nasopharyngeal Respiratory Panel (PCR) - Final D/C Instructions Discharge Diet: Renal Diet and - (-DASH diet, 3000 mg sodium restriction, 2 L fluid restriction) Discharge Activity: - (Per PT recommendations) Meaningful Use Info Meaningful Use Diagnoses (Choose all that apply): CHF CHF TIMO/ARB ordered at discharge?: No Reason TIMO/ARB not ordered?: Worsening renal disease Documented LVEF (%): 55 Discharge Plan Admission Admit Date/Time: 08/27/22 21:15 Primary Reason for Your Visit: Shortness of breath Attending Provider: Kari Ramos Primary Care Provider: Jace Fallon Consulting Providers: Kishor Torres Instructions Patient Instructions: ED Fall Prevention Additional Instructions / Restrictions: DISCHARGE INSTRUCTIONS PLEASE READ *Please take this with you to your next doctors appointment* -You came in with very low blood glucose, your long-acting insulin has been decreased -Given your kidney function/creatinine clearance your duloxetine is contraindicated and it is also strongly advised they do not take this in conjunction with your Zoloft. Zoloft was continued -Due to your kidney function your gabapentin was also decreased to 300 twice a day. -You will be discharged on Lasix 20 mg daily, due to receiving high doses of IV Lasix to improve your respiratory status he did become slightly volume depleted so would restart Lasix at 20 mg on 09/01, this may need adjusted further in the future -Weigh yourself every day. A sudden weight gain can mean you are retaining fluid. Weigh yourself at the same time of day and in the same kind of clothes. Ideally, weigh yourself first thing in the morning after you empty your bladder, but before you eat breakfast. -Please call your physician if your weight goes up by more than 2 pounds in 1 day or 5 pounds in 1 week. This can be a sign that you are retaining more fluid than you should be. -Recommend BMP to check your kidney function and potassium in 3 to 4 days -Please call your primary care provider's office upon discharge to schedule a hospital follow up within 1 week. -For any concerning signs or symptoms please call 911 or proceed to the nearest emergency department Discharge Orders/Prescriptions Prescriptions: New polyethylene glycol 3350 17 gram Powder In Packet 17 g PO BID Qty: 100 0RF furosemide [Lasix] 20 mg tablet 20 mg PO DAILY Qty: 30 0RF Rx Instructions: Start 09/01/2022 insulin lispro [Humalog KwikPen Insulin] 100 unit/mL Insulin Pen See Protocol subcut ACHS Qty: 0 0RF Protocol: 1. Sliding Scale Insulin Low Dosing Condition: 150-224 mg/dl = 1 unit Condition: 225-299 mg/dl = 2 units Condition: 300-374 mg/dl = 3 units Condition: 375-499 mg/dl = 4 units Condition: Greater than 449 call physician Protocol Text: - Use for Total Daily Dose of Insulin 15-27 units - Thin, elderly, renal patients LOW DOSING ALGORITHM Continued aspirin 81 mg tablet,delayed release (DR/EC) 81 mg PO QDAY Hold Instructions: Resume on 01/22/21. nitroglycerin [Nitrostat] 0.4 mg tablet, sublingual 0.4 mg SUBLINGUAL Q5M PRN (Reason: CHEST PAIN) amlodipine 10 mg tablet 10 mg PO DAILY cholecalciferol (vitamin D3) 1,000 unit capsule 1,000 unit PO DAILY fenofibrate micronized 200 mg capsule 200 mg PO DAILY multivitamin 1 EACH tablet 1 tab PO DAILY carvedilol 6.25 MG tablet 6.25 mg PO DAILY levothyroxine 112 mcg tablet 112 mcg PO DAILY trazodone 50 mg Tablet 50 mg PO QHS Invega Sustenna 234 mg/1.5 mL Syringe 234 mg IM Q28D oxcarbazepine 150 mg tablet 150 mg PO BID acetaminophen 500 mg Tablet 1,000 mg PO TID triamcinolone acetonide 0.1 % cream 1 applic TOPICAL Q12H PRN (Reason: Rash) calcium polycarbophil [Fiber-Tabs] 625 mg Tablet 625 mg PO DAILY albuterol sulfate [Ventolin HFA] 90 mcg/actuation Hfa Aerosol Inhaler 2 puff INHALATION Q4H PRN (Reason: SHORTNESS OF BREATH ) risperidone 1 mg tablet 1.5 mg PO BID lamotrigine 100 mg tablet 100 mg PO DAILY loratadine 10 mg Tablet 10 mg PO DAILY buspirone 5 mg Tablet 5 mg PO TID cetirizine 10 mg Tablet 10 mg PO DAILY ferrous sulfate 325 mg (65 mg iron) Tablet 325 mg PO DAILY sertraline [Zoloft] 100 mg Tablet 100 mg PO DAILY guaifenesin 400 mg Tablet 400 mg PO BID sennosides 8.6 mg Tablet 8.6 mg PO Q12H oxcarbazepine 300 mg tablet 300 mg PO BID Changed gabapentin 600 mg Tablet 300 mg PO BID 30 Days Qty: 60 0RF Held insulin glargine 100 unit/mL (3 mL) insulin pen 38 unit subcut QHS Hold Instructions: Resume on 09/18/22. Please hold until determining what dose is needed chronically is glucose has been well controlled here and sliding scale insulin Discontinued duloxetine 60 mg Capsule,Delayed Release(Dr/Ec) 60 mg PO BID insulin lispro [Humalog U-100 Insulin] 100 unit/mL solution See Protocol subcut TIDCM Protocol: 6. Sliding Scale Insulin Custom Condition: mg/dl range Dose/Route: Number of Units Condition: 150-200 Dose/Route: 2 Condition: 201-250 Dose/Route: 4 Condition: 251-300 Dose/Route: 6 Condition: 301-350 Dose/Route: 8 Condition: 351-400 Dose/Route: 10 Condition: 401-450 Dose/Route: 12 Condition: 450> Instruction: CALL MD Protocol Text: Custom Sliding Scale Referrals / Follow Up: Jace Fallon MD [Primary Care Provider] - Within 1 Week Disposition Disposition (needs filled in before D/C Order can be placed): NonSkilled NH/Intermed Care Charges/Coding Visit Charges Inpatient E&M: 04899 Disch Hosp >30min
[2022-08-30 12:45] LABS: Bedside Glucose 195 mg/dL (74-106)
--- NOTE | 2022-08-30 13:19 | PHA.DC.MR ---
Pharmacy Service has performed discharge medication reconciliation for this patient. The patient's discharge medication list was reviewed for discrepancies and discrepancies were resolved. Home Medications multivitamin 1 tab PO DAILY HEALTH MAINTENANCE 09/07/16 aspirin 81 mg tablet,delayed release 81 mg PO QDAY [facility] 02/27/17 nitroglycerin 0.4 mg sublingual tablet (Nitrostat) 0.4 mg sublingual Q5M PRN CHEST PAIN 02/27/17 amlodipine 10 mg tablet 10 mg PO DAILY BLOOD PRESSURE 02/03/19 cholecalciferol (vitamin D3) 25 mcg (1,000 unit) capsule 1,000 unit PO DAILY SUPPLEMENT 02/03/19 carvedilol 6.25 mg tablet 6.25 mg PO DAILY HEART 03/25/20 levothyroxine 112 mcg tablet 112 mcg PO DAILY THYROID 09/23/20 paliperidone palmitate 234 mg/1.5 mL intramuscular syringe (Invega Sustenna) 234 mg IM Q28D SCHIZOPHRENIA 01/05/21 trazodone 50 mg tablet 50 mg PO QHS INSOMNIA 01/05/21 fenofibrate micronized 200 mg capsule 200 mg PO DAILY CHOLESTEROL 03/01/21 acetaminophen 500 mg tablet 1,000 mg PO TID PAIN 12/10/21 albuterol sulfate 90 mcg/actuation aerosol inhaler (Ventolin HFA) 2 puff inhalation Q4H PRN SHORTNESS OF BREATH 12/10/21 calcium polycarbophil 625 mg tablet (Fiber-Tabs) 625 mg PO DAILY CONSTIPATION 12/10/21 lamotrigine 100 mg tablet 100 mg PO DAILY MOOD 12/10/21 loratadine 10 mg tablet 10 mg PO DAILY RASH 12/10/21 oxcarbazepine 150 mg tablet 150 mg PO BID BIPOLAR DISORDER 12/10/21 risperidone 1 mg tablet 1.5 mg PO BID SCHIZOPHRENIA 12/10/21 triamcinolone acetonide 0.1 % topical cream 1 applic topical Q12H PRN Rash 12/10/21 buspirone 5 mg tablet 5 mg PO TID ANXIETY 08/06/22 cetirizine 10 mg tablet 10 mg PO DAILY ALLERGIES/RASH 08/06/22 ferrous sulfate 325 mg (65 mg iron) tablet 325 mg PO DAILY SUPPLEMENT 08/06/22 guaifenesin 400 mg tablet 400 mg PO BID CONGESTION 08/06/22 sertraline 100 mg tablet (Zoloft) 100 mg PO DAILY ANXIETY/DEPRESSION 08/06/22 insulin glargine 100 unit/mL (3 mL) subcutaneous pen 38 unit subcut QHS DIABETES 08/27/22 oxcarbazepine 300 mg tablet 300 mg PO BID BIPOLAR DISORDER 08/27/22 sennosides 8.6 mg tablet 8.6 mg PO Q12H CONSTIPATION 08/27/22 furosemide 20 mg tablet (Lasix) 20 mg PO DAILY #30 tabs 08/30/22 gabapentin 600 mg tablet 300 mg PO BID NERVE PAIN 30 days #60 tabs 08/30/22 insulin lispro 100 unit/mL subcutaneous pen (Humalog KwikPen (U-100) Insulin) See Protocol subcut ACHS #0 mL 08/30/22 polyethylene glycol 3350 17 gram oral powder packet 17 g PO BID #100 ea 08/30/22
--- NOTE | 2022-08-30 13:30 | CASEMGMT ---
Patient is medically ready for discharge today. Patient being transferred back to [facility]. Patient discharge orders sent to [facility]. Patient and family informed and agreed to above. Transport arranged via [facility]. Patient and family notified of transport time. No additional sw needs at this time. Nat White, WATER CHEMIST, SPRAY BOOTH OPERATOR
--- NOTE | 2022-08-30 16:16 | NURSING ---
Report called to LEWIS Mora at [facility] at 1610.
== END 2022-08-30 16:10 | disposition intermediate care facility (04) | DRG 291 ==
LOC: ED 22:07 → PCU 22:12
PROVIDERS: Admitting Provider Hospitalist; Emergency Provider Student in an Organized Health Care Education/Training Program; PCP Family Medicine; Visit Provider Internal Medicine
DX: I13.0 Hypertensive heart and chronic kidney disease with heart failure and stage 1 through stage 4 chronic kidney disease, or unspecified chronic kidney disease (principal); I50.33 Acute on chronic diastolic (congestive) heart failure; J96.21 Acute and chronic respiratory failure with hypoxia; J96.22 Acute and chronic respiratory failure with hypercapnia; E87.3 Alkalosis; N18.4 Chronic kidney disease, stage 4 (severe); F25.9 Schizoaffective disorder, unspecified; I48.0 Paroxysmal atrial fibrillation; E11.22 Type 2 diabetes mellitus with diabetic chronic kidney disease; E11.40 Type 2 diabetes mellitus with diabetic neuropathy, unspecified; Z79.4 Long term (current) use of insulin; F31.9 Bipolar disorder, unspecified; E03.9 Hypothyroidism, unspecified; E78.5 Hyperlipidemia, unspecified; I25.10 Atherosclerotic heart disease of native coronary artery without angina pectoris; I25.2 Old myocardial infarction; Z79.82 Long term (current) use of aspirin; Z95.5 Presence of coronary angioplasty implant and graft; Z95.0 Presence of cardiac pacemaker; Z87.820 Personal history of traumatic brain injury
CPT/HCPCS: 36415; 71045; 80048; 80053; 82803; 82962; 83880; 84484; 85025; 85379; 87633; 87811; 93005; 93306; 94002; 94003; 94640; 94762; 97162; 97166; 97530; 97802; 99252; 99285; Q9957; A4216; C8929; G0463; J1940

== ENCOUNTER 2022-09-01 02:05 | Emergency (ER) | payer MEDICARE, MEDICAID, SELFPAY ==
[2020-12-26 13:29] VITALS: BMI 31.8
[2022-09-01 02:07] VITALS: BP 139/92; PULSE 91; RESP 22; TEMP 36.1; O2SAT 85; BMI 32.4
[2022-09-01 02:12] VITALS: O2SAT 85
[2022-09-01 02:16] VITALS: O2SAT 92
--- NOTE | 2022-09-01 02:33 | EKG12_ITS ---
Test Reason : SOB Blood Pressure : / mmHG Vent. Rate : 076 BPM Atrial Rate : 076 BPM P-R Int : 210 ms QRS Dur : 092 ms QT Int : 366 ms P-R-T Axes : 011 -34 029 degrees QTc Int : 411 ms Sinus rhythm with 1st degree A-V block Left axis deviation Abnormal ECG When compared with ECG of 27-AUG-2022 22:00, Sinus rhythm has replaced Electronic ventricular pacemaker Confirmed by GRETA JASON, CHARI ([id number]), video tape editor VENTURA FINK ([id number]) on 09/04/2022 12:25:07 PM Referred By: TERRY Confirmed By:CHARI HERNANDES MD
--- NOTE | 2022-09-01 03:03 | CT_ITS ---
INDICATION: Altered mental status EXAMINATION: CT BRAIN - CT Head or Brain W/O Contrast Injection TECHNIQUE: Multiple axial images were obtained of the head without intravenous contrast. A radiation dose optimization technique was used for this scan. IV Contrast dosage and agent: None. RADIATION DOSAGE (If Supplied By Facility): CTDIvol = ( 44.99 ) mGy, DLP = ( 897.35 ) mGycm COMPARISON: CT head 01/05/2021 FINDINGS: BRAIN: No acute bleed. No edema. Small area of encephalomalacia in the left posterior parietal region consistent with old infarct, was not present on the prior study. Decreased attenuation in the periventricular white matter bilaterally. Plummer-white matter differentiation is maintained. Arterial calcifications. VENTRICLES AND SULCI: The ventricles are not dilated. The sulci are prominent. EXTRA-AXIAL: No hemorrhage, fluid collection, or mass. CALVARIUM / SKULL BASE: Unremarkable. FACE/SINUSES: Unremarkable. SOFT TISSUES: Unremarkable. CT/Brain/Head without Contrast IMPRESSION: No acute abnormality. 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 CT angiogram and/or MRI may be helpful to evaluate for acute infarct as clinically indicated. Electronically Signed: Bridgette Yun MD at 3:44 EDT ,
[2022-09-01 03:17] LABS: Absolute Lymphocyte Count 0.71 X10^3/uL (0.83-4.51); Absolute Neutrophil Count 6.8 X10^3/uL (2.0-7.7); Basophil# 0.03 X10^3/uL; Basophil% 0.3 % (0-1); Eosinophil# 0.53 X10^3/uL; Eosinophils% 5.8 % (0-5); Hematocrit 32.5 % (40-54); Hemoglobin 10.3 g/dL (13.0-16.5); Lymphocyte # 0.71 X10^3/ul (0.83-4.51); Lymphocyte % 7.8 % (19-41); Mean Corp Hgb Conc 31.7 g/dL (32-36); Mean Corpuscular Hgb 30.8 pg (27.0-32.0); Mean Corpuscular Volume 97.3 fL (80-94); Mean Platelet Vol. 10.4 fl (6.2-12.0); Monocyte% 10.9 % (0-10); NRBC Flagged by Analyzer 0 % (0-5); Neutrophil # 6.84 X10^3/uL (2.7-7.7); Neutrophil % 74.8 % (47-70); Platelet Count 303 K/mm3 (150-450); RBC Distribution Width CV 13.2 % (11.6-14.6); RBC Distribution Width SD 47.3 fl (35.1-43.9); Red Blood Count 3.34 M/mm3 (4.6-6.2); White Blood Count 9.2 K/mm3 (4.4-11.0)
--- NOTE | 2022-09-01 03:25 | RAD_ITS ---
INDICATION: cough EXAMINATION/TECHNIQUE: X-RAY - XR Chest 1 View AP portable. 3:19 AM COMPARISON: 08/27/2022 FINDINGS: LINES/DEVICES: Pacemaker leads unchanged. LUNGS: Low lung volumes. Minimal atelectasis in the lung bases. No consolidation. No pneumothorax. MEDIASTINUM: Unremarkable. CARDIAC SILHOUETTE: Not enlarged. BONES AND SOFT TISSUES: No acute abnormalities. RAD/Chest 1 View (Portable) IMPRESSION: Hypoventilatory changes with basilar atelectasis. No definite infiltrates. Electronically Signed: Bridgette Yun MD at 4:39 EDT ,
[2022-09-01 03:40] LABS: BNP,B-Type NATRIURETIC PEPTIDE 125.9 pg/mL (0-100)
[2022-09-01 03:59] LABS: AST(SGOT) 35 U/L (15-37); Alanine Aminotransfer ALT/SGPT 30 U/L (16-61); Albumin, Serum 2.8 g/dL (3.2-5.0); Alkaline Phosphatase 64 U/L (45-117); Anion Gap 6 (5-15); BUN 65 mg/dL (7-18); BUN/Creat Ratio 16.5 RATIO (10-20); Bilirubin, Direct < 0.05 mg/dL (0.00-0.30); Calcium,Total 9.4 mg/dL (8.5-10.1); Chloride 98 mmol/L (98-107); Creatinine, Serum 3.93 mg/dL (0.70-1.30); EST Glomerular Filtration Rate 16 mL/min (>60); Est Glom Filt Rate - Afr Amer 19 mL/min (>60); Estimated Creatinine Clearance 17.29 ml/min; Globulin 4.2 g/dL (2.2-4.2); Glucose 210 mg/dL (74-106); Magnesium 2.2 mg/dL (1.6-2.6); Sodium Level 135 mmol/L (136-145)
[2022-09-01 04:07] VITALS: BP 100/47; PULSE 77; RESP 91; O2SAT 2
[2022-09-01 04:27] LABS: Bacteria 0 SEEN /hpf (None Seen); Mucous, Urine 0 SEEN /hpf (<or=2+); Red Blood Cells-Urine 0 SEEN /hpf (0-5); Squamous Epithelial Cells - UA 0 SEEN /hpf (0-5); White Blood Cells 0 SEEN /hpf (0-5)
[2022-09-01 04:28] LABS: Color, Urine Yellow (Yellow); Glucose, Dipstick 100 mg/dl (Normal); Ketone-Dipstick Negative (Negative); Leukocyte Esterase-Dipstick Negative /ul (Negative); Nitrite-Dipstick Negative (Negative); Occult Blood-Urine 10 /ul (Negative); Protein-Dipstick 100 mg/dl (Negative); Urine Bilirubin Dipstick Negative (Negative); Urine Clarity Clear (Clear); Urine Urobilinogen Normal (Normal); Urine pH 6.5 (5.0 - 8.0)
[2022-09-01 04:29] VITALS: BP 133/87; PULSE 81; RESP 16; TEMP 36.4; O2SAT 94
--- NOTE | 2022-09-01 06:55 | EX.ED.DYSGE1 ---
HPI History of Present Illness Chief Complaint: Shortness of Breath Informant: patient, family and SNF Narrative Narrative: Patient is a 71-year-old male with past medical history of chronic renal insufficiency schizoaffective disorder hypertension hyperlipidemia and previous pacemaker secondary to heart block. Reportedly he was at the long term this evening when they stated that he began not acting right and they checked his pulse ox and it was reportedly low. Secondary to this EMS was called and the patient was brought to the hospital for evaluation. Upon arrival to the ER family members are present with him and states that he is at his baseline mental status and that his slurred speech is his normal. Patient reports that he was just not doing what they wanted because he did not want to follow other commands. He states that he wears oxygen chronically and does have oxygen available to him at the long term [facility] Medical History Accidental acetaminophen overdose Acute kidney injury Anxiety Arthritis Atherosclerotic heart disease of [place] coronary artery without angina pectoris Back problem Bipolar disorder Cataracts, bilateral Chronic kidney disease Chronic kidney disease (CKD) stage G3b/A2, moderately decreased glomerular filtration rate (GFR) between 30-44 mL/min/1.73 square meter and albuminuria creatinine ratio between 30-299 mg/g Complete heart block Depression Diabetes mellitus, type II Essential hypertension Falls GI problem Gout Headache History of ST elevation myocardial infarction (STEMI) (11/19/17) Hyperlipidemia Hypoxia Insomnia Kidney disease Neuropathy Osteoarthritis Paroxysmal atrial fibrillation Partial small bowel obstruction Recurrent UTI Schizoaffective disorder Seasonal allergies Sepsis Syncope Traumatic brain injury Home Medications multivitamin 1 tab PO DAILY HEALTH MAINTENANCE 09/07/16 [History Last Taken 12/10/21] aspirin 81 mg tablet,delayed release 81 mg PO QDAY HEART HEALTH 02/27/17 [History Last Taken 12/10/21] nitroglycerin 0.4 mg sublingual tablet (Nitrostat) 0.4 mg sublingual Q5M PRN CHEST PAIN 02/27/17 [History Last Taken 12/29/18] amlodipine 10 mg tablet 10 mg PO DAILY BLOOD PRESSURE 02/03/19 [History Last Taken 12/10/21] cholecalciferol (vitamin D3) 25 mcg (1,000 unit) capsule 1,000 unit PO DAILY SUPPLEMENT 02/03/19 [History Last Taken 12/10/21] carvedilol 6.25 mg tablet 6.25 mg PO DAILY HEART 03/25/20 [History Last Taken 12/10/21] levothyroxine 112 mcg tablet 112 mcg PO DAILY THYROID 09/23/20 [History Last Taken 12/10/21] paliperidone palmitate 234 mg/1.5 mL intramuscular syringe (Invega Sustenna) 234 mg IM Q28D SCHIZOPHRENIA 01/05/21 [History Last Taken 11/29/21] trazodone 50 mg tablet 50 mg PO QHS INSOMNIA 01/05/21 [History Last Taken 12/09/21] fenofibrate micronized 200 mg capsule 200 mg PO DAILY CHOLESTEROL 03/01/21 [History Last Taken 12/10/21] acetaminophen 500 mg tablet 1,000 mg PO TID PAIN 12/10/21 [History Last Taken 12/10/21] albuterol sulfate 90 mcg/actuation aerosol inhaler (Ventolin HFA) 2 puff inhalation Q4H PRN SHORTNESS OF BREATH 12/10/21 [History Last Taken 12/10/21] calcium polycarbophil 625 mg tablet (Fiber-Tabs) 625 mg PO DAILY CONSTIPATION 12/10/21 [History Last Taken 12/10/21] lamotrigine 100 mg tablet 100 mg PO DAILY MOOD 12/10/21 [History Last Taken 12/10/21] loratadine 10 mg tablet 10 mg PO DAILY RASH 12/10/21 [History Last Taken 12/10/21] oxcarbazepine 150 mg tablet 150 mg PO BID BIPOLAR DISORDER 12/10/21 [History Last Taken 12/10/21] risperidone 1 mg tablet 1.5 mg PO BID SCHIZOPHRENIA 12/10/21 [History Last Taken 12/10/21] triamcinolone acetonide 0.1 % topical cream 1 applic topical Q12H PRN Rash 12/10/21 [History Last Taken 12/03/21] buspirone 5 mg tablet 5 mg PO TID ANXIETY 08/06/22 [History Last Taken Unknown] cetirizine 10 mg tablet 10 mg PO DAILY ALLERGIES/RASH 08/06/22 [History Last Taken Unknown] ferrous sulfate 325 mg (65 mg iron) tablet 325 mg PO DAILY SUPPLEMENT 08/06/22 [History Last Taken Unknown] guaifenesin 400 mg tablet 400 mg PO BID CONGESTION 08/06/22 [History Last Taken Unknown] sertraline 100 mg tablet (Zoloft) 100 mg PO DAILY ANXIETY/DEPRESSION 08/06/22 [History Last Taken Unknown] insulin glargine 100 unit/mL (3 mL) subcutaneous pen 38 unit subcut QHS DIABETES 08/27/22 [History Last Taken Unknown] oxcarbazepine 300 mg tablet 300 mg PO BID BIPOLAR DISORDER 08/27/22 [History Last Taken Unknown] sennosides 8.6 mg tablet 8.6 mg PO Q12H CONSTIPATION 08/27/22 [History Last Taken Unknown] furosemide 20 mg tablet (Lasix) 20 mg PO DAILY #30 tabs 08/30/22 [Rx Last Taken Unknown] gabapentin 600 mg tablet 300 mg PO BID NERVE PAIN 30 days #60 tabs 08/30/22 [Rx Last Taken Unknown] insulin lispro 100 unit/mL subcutaneous pen (Humalog KwikPen (U-100) Insulin) See Protocol subcut ACHS #0 mL 08/30/22 [Rx Last Taken Unknown] polyethylene glycol 3350 17 gram oral powder packet 17 g PO BID #100 ea 08/30/22 [Rx Last Taken Unknown] Allergy/AdvReac Type Severity Reaction Status Date / Time atorvastatin [From Lipitor] Allergy Unknown Verified 08/27/22 18:13 Penicillins Allergy Unknown Verified 08/27/22 18:13 lisinopril AdvReac Unknown unknown Verified 08/27/22 18:13 codeine AdvReac Upset Verified 08/27/22 18:13 Stomach doxycycline AdvReac Other Verified 08/27/22 18:13 lycopene AdvReac Other Verified 08/27/22 18:13 nickel AdvReac Rash Verified 08/27/22 18:13 Family History Father Arthritis Bleeding disorder Heart disease Hypertension Mother Hypertension Surgical History History of coronary artery stent placement (11/19/17) History of permanent cardiac pacemaker placement (01/08/21) Social History household members: none housing: long term Smoking Status: Never smoker alcohol intake: never substance use type: does not use caffeine: Yes ROS ROS ED Constitutional Constitutional ED: Denies chills or fever(s) Eyes Eyes: Denies change in vision ENT ENT ED: Denies sore throat Cardiovascular Cardiovascular: Denies chest pain Respiratory/Chest Respiratory/Chest: Denies cough or dyspnea Gastrointestinal Gastrointestinal: Denies abdominal pain, diarrhea, nausea or vomiting Genitourinary Genitourinary ED: Denies dysuria Musculoskeletal Musculoskeletal: Denies myalgias Integumentary Denies rash Neurologic Neurologic: Denies headache(s) Hematologic/Lymphatic Hematologic/Lymphatic: Denies easy bleeding or easy bruising EXAM Physical Exam Const Vital Signs: 09/01/22 02:07 09/01/22 02:12 09/01/22 02:16 Temperature 96.9 F L Temperature Source Temporal Pulse Rate 91 Respiratory Rate 22 H Respiratory Effort Short of Breath Respiratory Depth Normal Respiratory Pattern Tachypnea Blood Pressure 139/92 H Blood Pressure Mean 107 Pulse Ox 85 92 Oxygen Delivery Method Nasal Cannula Nasal Cannula Nasal Cannula Oxygen Flow Rate (L/min) 2 2 5 09/01/22 04:07 09/01/22 04:29 Temperature 97.5 F L Temperature Source Oral Pulse Rate 77 81 Respiratory Rate 91 H 16 Respiratory Effort Respiratory Depth Respiratory Pattern Blood Pressure 100/47 L 133/87 H Blood Pressure Mean 64 102 Pulse Ox 2 94 Oxygen Delivery Method Nasal Cannula Nasal Cannula Oxygen Flow Rate (L/min) 3 Positive well nourished, well developed and obese General Appearance ED: well developed Nutritional Appearance: obese HEENT Reports moist mucous membranes HEENT Narrative: No signs of infection in the posterior pharynx No airway edema or compromise Eyes PERRL and EOMs intact bilaterally General Eye ED: Negative for scleral icterus Neck supple Neck Narrative: No nuchal rigidity or meningeal signs noted Chest Wall palpation of chest normal Resp normal respiratory effort Resp Narrative: Breath sounds are diminished throughout with diffuse expiratory wheeze but otherwise no nasal flaring retractions tachypnea or accessory muscle use Cardio regular rate and regular rhythm GI normal to inspection, nondistended, normoactive bowel sounds, non-tender, non-distended and no masses GI Narrative: No voluntary guarding or rigidity no pulsatile mass Auscultation: normoactive bowel sounds Palpation: soft Extremity Extremity Narrative: Trace to +1 pitting edema to the bilateral lower extremities is equal and symmetric with negative Homans' sign Neuro CN's II-XII intact bilaterally Neuro Narrative: Patient is at his baseline mental status without acute focal neurologic deficit Sensorium / Orientation: alert Psych mental status grossly normal Skin no rashes or lesions noted MDM MDM MDM Narrative Medical decision making narrative: Patient presented to the ER at his baseline mental status per family. They also reported that the slurred speech was chronic in nature. Based on nursing report stating that his pulse ox was low and he was not acting right there is concern that he is developing pneumonia had flash pulmonary edema is developing DKA or HHS from his diabetes there is also concern he could have had a CVA or TIA with the report of his mental status change. A basic work-up was obtained to check for these events and he does not have a leukocytosis or left shift. Patient's creatinine is at his baseline going against acute on chronic kidney injury. He has no derangement to his CO2 or anion gap going against DKA and his serum osmolality is less than 320 going against HHS. Urinalysis shows no signs of infection going against UTI. Therefore at this time as the patient is at his baseline mental status and his work-up is negative it is possible that the patient simply was being disagreeable with his history of bipolar disorder and schizophrenia and that the pulse ox was reading low based on a poor waveform. Based on the fact that work-up is negative and patient is at his baseline mental status I do not believe there is need for further evaluation in the hospital and patient is otherwise safe for discharge History & Record Review Discussion w/independent historian: EMS personnel, Patient and Family Lab Data Attestation: I reviewed the patient's lab results. Labs: Laboratory Results - last 24 hr 09/01/22 09/01/22 09/01/22 02:16 02:16 02:16 WBC 9.2 RBC 3.34 L Hgb 10.3 L Hct 32.5 L MCV 97.3 H MCH 30.8 MCHC 31.7 L D RDW Std Deviation 47.3 H RDW Coeff of Shashank 13.2 Plt Count 303 MPV 10.4 Immature Gran % (Auto) 0.400 Neut % (Auto) 74.8 H Lymph % (Auto) 7.8 L [place] % (Auto) 10.9 H Eos % (Auto) 5.8 H Baso % (Auto) 0.3 Absolute Neuts (auto) 6.8 Absolute Lymphs (auto) 0.71 L Nucleated RBC % 0 Sodium 135 L Potassium 5.0 Chloride 98 Carbon Dioxide 31.0 Anion Gap 6 BUN 65 H Creatinine 3.93 H Estim Creat Clear Calc 17.29 Est GFR (MDRD) Af Amer 19 L Est GFR (MDRD) Non-Af 16 L BUN/Creatinine Ratio 16.5 Glucose 210 H Calcium 9.4 Magnesium 2.2 Total Bilirubin 0.40 Direct Bilirubin < 0.05 AST 35 ALT 30 Alkaline Phosphatase 64 B-Natriuretic Peptide 125.9 H Total Protein 7.0 Albumin 2.8 L Globulin 4.2 Urine Color Urine Clarity Urine pH Ur Specific [place] Urine Protein Urine Glucose (UA) Urine Ketones Urine Occult Blood Urine Nitrite Urine Bilirubin Urine Urobilinogen Ur Leukocyte Esterase Urine RBC Urine WBC Ur Squamous Epith Cells Urine Bacteria Urine Mucus 09/01/22 04:20 WBC RBC Hgb Hct MCV MCH MCHC RDW Std Deviation RDW Coeff of Shashank Plt Count MPV Immature Gran % (Auto) Neut % (Auto) Lymph % (Auto) [place] % (Auto) Eos % (Auto) Baso % (Auto) Absolute Neuts (auto) Absolute Lymphs (auto) Nucleated RBC % Sodium Potassium Chloride Carbon Dioxide Anion Gap BUN Creatinine Estim Creat Clear Calc Est GFR (MDRD) Af Amer Est GFR (MDRD) Non-Af BUN/Creatinine Ratio Glucose Calcium Magnesium Total Bilirubin Direct Bilirubin AST ALT Alkaline Phosphatase B-Natriuretic Peptide Total Protein Albumin Globulin Urine Color Yellow Urine Clarity Clear Urine pH 6.5 Ur Specific [place] 1.010 Urine Protein 100 H Urine Glucose (UA) 100 H Urine Ketones Negative Urine Occult Blood 10 H Urine Nitrite Negative Urine Bilirubin Negative Urine Urobilinogen Normal Ur Leukocyte Esterase Negative Urine RBC 0 SEEN Urine WBC 0 SEEN Ur Squamous Epith Cells 0 SEEN Urine Bacteria 0 SEEN Urine Mucus 0 SEEN Radiography Diagnostic Testing: Clinical Impression(s) from Imaging Studies Brain CT 09/01/22 03:03 IMPRESSION: No acute abnormality. 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 CT angiogram and/or MRI may be helpful to evaluate for acute infarct as clinically indicated. Electronically Signed: Bridgette Yun MD at 3:44 EDT , Chest X-Ray 09/01/22 03:25 IMPRESSION: Hypoventilatory changes with basilar atelectasis. No definite infiltrates. Electronically Signed: Bridgette Yun MD at 4:39 EDT , Chest x-ray as interpreted by the emergency medicine physician reveals atelectasis in the bilateral bases without acute infiltrate or pneumothorax or pleural effusion Discharge Plan Triage Chief Complaint: Shortness of Breath ED Provider: Daryl Fabian Dx/Rx/DC Orders Clinical Impression: Mental status change resolved, CRI (chronic renal insufficiency), Schizoaffective disorder, Essential hypertension, History of permanent cardiac pacemaker placement Instructions: CKD Dc, ED ALOC Prescriptions: No Action aspirin 81 mg tablet,delayed release (DR/EC) 81 mg PO QDAY Hold Instructions: Resume on 01/22/21. nitroglycerin [Nitrostat] 0.4 mg tablet, sublingual 0.4 mg SUBLINGUAL Q5M PRN (Reason: CHEST PAIN) amlodipine 10 mg tablet 10 mg PO DAILY cholecalciferol (vitamin D3) 1,000 unit capsule 1,000 unit PO DAILY fenofibrate micronized 200 mg capsule 200 mg PO DAILY multivitamin 1 EACH tablet 1 tab PO DAILY carvedilol 6.25 MG tablet 6.25 mg PO DAILY levothyroxine 112 mcg tablet 112 mcg PO DAILY trazodone 50 mg Tablet 50 mg PO QHS Invega Sustenna 234 mg/1.5 mL Syringe 234 mg IM Q28D oxcarbazepine 150 mg tablet 150 mg PO BID acetaminophen 500 mg Tablet 1,000 mg PO TID triamcinolone acetonide 0.1 % cream 1 applic TOPICAL Q12H PRN (Reason: Rash) calcium polycarbophil [Fiber-Tabs] 625 mg Tablet 625 mg PO DAILY albuterol sulfate [Ventolin HFA] 90 mcg/actuation Hfa Aerosol Inhaler 2 puff INHALATION Q4H PRN (Reason: SHORTNESS OF BREATH ) risperidone 1 mg tablet 1.5 mg PO BID lamotrigine 100 mg tablet 100 mg PO DAILY loratadine 10 mg Tablet 10 mg PO DAILY buspirone 5 mg Tablet 5 mg PO TID cetirizine 10 mg Tablet 10 mg PO DAILY ferrous sulfate 325 mg (65 mg iron) Tablet 325 mg PO DAILY sertraline [Zoloft] 100 mg Tablet 100 mg PO DAILY guaifenesin 400 mg Tablet 400 mg PO BID sennosides 8.6 mg Tablet 8.6 mg PO Q12H oxcarbazepine 300 mg tablet 300 mg PO BID insulin glargine 100 unit/mL (3 mL) insulin pen 38 unit subcut QHS Hold Instructions: Resume on 09/18/22. Please hold until determining what dose is needed chronically is glucose has been well controlled here and sliding scale insulin polyethylene glycol 3350 17 gram Powder In Packet 17 g PO BID Qty: 100 0RF furosemide [Lasix] 20 mg tablet 20 mg PO DAILY Qty: 30 0RF Rx Instructions: Start 09/01/2022 gabapentin 600 mg Tablet 300 mg PO BID 30 Days Qty: 60 0RF insulin lispro [Humalog KwikPen Insulin] 100 unit/mL Insulin Pen See Protocol subcut ACHS Qty: 0 0RF Protocol: 1. Sliding Scale Insulin Low Dosing Condition: 150-224 mg/dl = 1 unit Condition: 225-299 mg/dl = 2 units Condition: 300-374 mg/dl = 3 units Condition: 375-499 mg/dl = 4 units Condition: Greater than 449 call physician Protocol Text: - Use for Total Daily Dose of Insulin 15-27 units - Thin, elderly, renal patients LOW DOSING ALGORITHM Primary Care Provider: Jace Fallon Referrals: Jace Fallon MD [Primary Care Provider] - Activity Restrictions/Additional Instructions: Patient is work-up today shows no acute findings. There is no sign of pneumonia or urinary tract infection. In the ER he is awake and alert to person place and time and not altered at all. Patient may have had a hypoxic episode or a schizophrenic event leading to his transient change in mental status. At this time however he is at his baseline and his work-up is negative and therefore he can be discharged back to the long term. Disposition Disposition: Home, Self Care Discharge Date/Time: 09/01/22 07:47
[2022-09-01 06:59] VITALS: BP 166/74; PULSE 80; RESP 18; O2SAT 93
== END 2022-09-01 07:47 | disposition home or self-care (01) ==
PROVIDERS: Emergency Provider Emergency Medicine; PCP Family Medicine; Visit Provider Emergency Medicine
DX: R41.82 Altered mental status, unspecified (principal); F25.9 Schizoaffective disorder, unspecified; F31.9 Bipolar disorder, unspecified; E11.10 Type 2 diabetes mellitus with ketoacidosis without coma; E11.22 Type 2 diabetes mellitus with diabetic chronic kidney disease; E11.40 Type 2 diabetes mellitus with diabetic neuropathy, unspecified; N18.32 Chronic kidney disease, stage 3b; R06.02 Shortness of breath; I12.9 Hypertensive chronic kidney disease with stage 1 through stage 4 chronic kidney disease, or unspecified chronic kidney disease; E87.0 Hyperosmolality and hypernatremia; E78.5 Hyperlipidemia, unspecified; I25.10 Atherosclerotic heart disease of native coronary artery without angina pectoris; R47.81 Slurred speech; Z95.0 Presence of cardiac pacemaker; I25.2 Old myocardial infarction; Z87.820 Personal history of traumatic brain injury
CPT/HCPCS: 70450; 71045; 80048; 80076; 81001; 83735; 83880; 85025; 93005; 99285; A4216

== ENCOUNTER → 2022-09-16 | Outpatient (REF) | payer MEDICARE, MEDICAID, SELFPAY ==
[2020-12-26 13:29] VITALS: BMI 31.8
[2022-09-16 09:10] LABS: Hematocrit 31.7 % (40-54); Hemoglobin 9.8 g/dL (13.0-16.5); Mean Corp Hgb Conc 30.9 g/dL (32-36); Mean Corpuscular Hgb 30.2 pg (27.0-32.0); Mean Corpuscular Volume 97.5 fL (80-94); Mean Platelet Vol. 9.9 fl (6.2-12.0); Platelet Count 429 K/mm3 (150-450); RBC Distribution Width CV 13.2 % (11.6-14.6); RBC Distribution Width SD 47.8 fl (35.1-43.9); Red Blood Count 3.25 M/mm3 (4.6-6.2); White Blood Count 6.5 K/mm3 (4.4-11.0)
[2022-09-16 09:13] LABS: Anion Gap 6 (5-15); BUN 45 mg/dL (7-18); Calcium,Total 9.3 mg/dL (8.5-10.1); Chloride 99 mmol/L (98-107); Creatinine, Serum 3.74 mg/dL (0.70-1.30); EST Glomerular Filtration Rate 17 mL/min (>60); Est Glom Filt Rate - Afr Amer 21 mL/min (>60); Glucose 207 mg/dL (74-106); Potassium 4.3 mmol/L (3.5-5.1); Sodium Level 132 mmol/L (136-145)
== END ==
LOC: OLS.SW 05:00
PROVIDERS: PCP Family Medicine; Visit Provider Family Medicine
DX: E11.9 Type 2 diabetes mellitus without complications (principal); F03.90 Unspecified dementia, unspecified severity, without behavioral disturbance, psychotic disturbance, mood disturbance, and anxiety; J96.01 Acute respiratory failure with hypoxia; J96.02 Acute respiratory failure with hypercapnia
CPT/HCPCS: 36415; 80048; 85027

== ENCOUNTER → 2022-10-03 05:00 | Outpatient (REF) | payer MEDICARE, MEDICAID, SELFPAY ==
[2020-12-26 13:29] VITALS: BMI 31.8
[2022-10-03 10:11] LABS: Anion Gap 6 (5-15); BUN 47 mg/dL (7-18); BUN/Creat Ratio 14.9 RATIO (10-20); Calcium,Total 9.7 mg/dL (8.5-10.1); Chloride 102 mmol/L (98-107); Creatinine, Serum 3.15 mg/dL (0.70-1.30); EST Glomerular Filtration Rate 21 mL/min (>60); Est Glom Filt Rate - Afr Amer 25 mL/min (>60); Glucose 147 mg/dL (74-106); Potassium 4.5 mmol/L (3.5-5.1); Sodium Level 135 mmol/L (136-145)
== END ==
LOC: OLS.SW 05:00
PROVIDERS: PCP Family Medicine; Visit Provider Family Medicine
DX: E11.9 Type 2 diabetes mellitus without complications (principal); I50.9 Heart failure, unspecified
CPT/HCPCS: 36415; 80048

== ENCOUNTER → 2022-11-20 | Outpatient (REF) | payer MEDICARE, MEDICAID, SELFPAY ==
[2020-12-26 13:29] VITALS: BMI 31.8
[2022-11-20 08:48] LABS: Hemoglobin 10.9 g/dL (13.0-16.5); Mean Corp Hgb Conc 32.1 g/dL (32-36); Mean Corpuscular Hgb 30.6 pg (27.0-32.0); Mean Corpuscular Volume 95.5 fL (80-94); Mean Platelet Vol. 10.5 fl (6.2-12.0); Platelet Count 369 K/mm3 (150-450); RBC Distribution Width CV 12.6 % (11.6-14.6); RBC Distribution Width SD 44.5 fl (35.1-43.9); Red Blood Count 3.56 M/mm3 (4.6-6.2)
[2022-11-20 09:02] LABS: ALB/GLOB Ratio 0.7 RATIO (0.9-2.4); AST(SGOT) 30 U/L (15-37); Alanine Aminotransfer ALT/SGPT 48 U/L (16-61); Albumin, Serum 3.1 g/dL (3.2-5.0); Alkaline Phosphatase 59 U/L (45-117); Anion Gap 7 (5-15); BUN 54 mg/dL (7-18); BUN/Creat Ratio 15.9 RATIO (10-20); Calcium,Total 9.7 mg/dL (8.5-10.1); Chloride 103 mmol/L (98-107); Creatinine, Serum 3.39 mg/dL (0.70-1.30); EST Glomerular Filtration Rate 19 mL/min (>60); Est Glom Filt Rate - Afr Amer 23 mL/min (>60); Globulin 4.5 g/dL (2.2-4.2); Glucose 261 mg/dL (74-106); Potassium 4.5 mmol/L (3.5-5.1); Protein, Total 7.6 g/dL (6.4-8.2); Sodium Level 136 mmol/L (136-145)
== END ==
LOC: OLS.SW 05:00
PROVIDERS: PCP Family Medicine; Visit Provider Family Medicine
DX: R41.82 Altered mental status, unspecified (principal); Z79.899 Other long term (current) drug therapy
CPT/HCPCS: 36415; 80053; 85027

== ENCOUNTER 2022-12-16 09:33 | Emergency (ER) | payer MEDICARE, MEDICAID, SELFPAY ==
[2020-12-26 13:29] VITALS: BMI 31.8
[2022-12-16 09:35] VITALS: BP 149/67; PULSE 66; RESP 16; TEMP 36.3; O2SAT 96; BMI 29.8
--- NOTE | 2022-12-16 09:51 | CT_ITS ---
STUDY: CT ABDOMEN AND PELVIS WITHOUT CONTRAST REASON FOR EXAM: Male, 72 years old. Lesion in the left buttock, question in depth. Chronic renal insufficiency. RADIATION DOSAGE (If Supplied By Facility): CTDIvol = ( 15.33 ) mGy, DLP = ( 961.61 ) mGycm TECHNIQUE: Transaxial images were obtained from the dome of the diaphragm to the symphysis pubis without oral contrast, and without intravenous contrast. Sagittal and coronal images were reconstructed. Individualized dose optimization techniques were used for this CT. COMPARISON: Comparison is made with prior study dated November 14, 2019. FINDINGS: There is a 1.4 cm nodule in the posterior medial segment of the left lower lobe. Increased markings are seen at the lung bases as well as in the posterior aspect of the lingular segment of the left upper lobe suggestive of scarring. A dual-chamber pacemaker is seen. Coronary artery calcification. Normal liver. Normal gallbladder and extrahepatic biliary system. Normal spleen. Normal pancreas. Normal bilateral adrenal glands. Stable bilateral renal cysts. Normal visualized stomach. Normal small intestine. There are scattered colonic diverticula consistent with diverticulosis. The appendix is visualized and appears normal. There is diffuse atherosclerotic calcification of the abdominal aorta, without a demonstrated aneurysm. Normal inferior vena cava. Normal retroperitoneum. Distended urinary bladder. Small bilateral inguinal hernias containing fat. Increased markings in the medial aspect of the left buttock suggestive of a inflammatory changes. Small superficial ulceration in the superficial skin.. There are diffuse degenerative changes of the visualized lumbar spine. CT/Abdomen/Pelvis without Cont IMPRESSION: Increased markings in the medial aspect of the left buttock with overlying skin ulceration. Stable bilateral renal cysts. 1.4 cm nodule in the posterior segment of the left lower lobe. A dedicated CT scan of the chest is recommended for further evaluation. Electronically Signed: James Bean MD at 11:44 EDT ,
--- NOTE | 2022-12-16 09:56 | EX.ED.DYSGE1 ---
HPI History of Present Illness Chief Complaint: General Illness Informant: patient Narrative Narrative: Was sent in by [facility] for referral to surgeon for a wound on his left buttock. Patient tells me the lesion has been there for about 1 week. He is not sure how it started. It does hurt a little bit. But he does not feel sick. He is eating and drinking fine. He has no fevers or chills. No nausea or vomiting. He does have a history of diabetes. He is having no problems moving his bowels or urinating. He does not know what his blood sugar has been but he thinks it is well controlled. He tells me that they have put a dressing on the outside. But he has not seen any wound care people. [facility] Medical History Accidental acetaminophen overdose Acute kidney injury Anxiety Arthritis Atherosclerotic heart disease of [place] coronary artery without angina pectoris Back problem Bipolar disorder Cataracts, bilateral Chronic kidney disease Chronic kidney disease (CKD) stage G3b/A2, moderately decreased glomerular filtration rate (GFR) between 30-44 mL/min/1.73 square meter and albuminuria creatinine ratio between 30-299 mg/g Complete heart block Depression Diabetes mellitus, type II Essential hypertension Falls GI problem Gout Headache Heart failure History of ST elevation myocardial infarction (STEMI) (11/19/17) Hyperlipidemia Hypoxia Insomnia Kidney disease Neuropathy Osteoarthritis Paroxysmal atrial fibrillation Partial small bowel obstruction Recurrent UTI Schizoaffective disorder Seasonal allergies Sepsis Syncope Traumatic brain injury Home Medications multivitamin 1 tab PO DAILY HEALTH MAINTENANCE 09/07/16 [History Last Taken 12/10/21] aspirin 81 mg tablet,delayed release 81 mg PO QDAY HEART HEALTH 02/27/17 [History Last Taken 12/10/21] nitroglycerin 0.4 mg sublingual tablet (Nitrostat) 0.4 mg sublingual Q5M PRN CHEST PAIN 02/27/17 [History Last Taken 12/29/18] amlodipine 10 mg tablet 10 mg PO DAILY BLOOD PRESSURE 02/03/19 [History Last Taken 12/10/21] cholecalciferol (vitamin D3) 25 mcg (1,000 unit) capsule 1,000 unit PO DAILY SUPPLEMENT 02/03/19 [History Last Taken 12/10/21] carvedilol 6.25 mg tablet 6.25 mg PO DAILY HEART 03/25/20 [History Last Taken 12/10/21] levothyroxine 112 mcg tablet 112 mcg PO DAILY THYROID 09/23/20 [History Last Taken 12/10/21] paliperidone palmitate 234 mg/1.5 mL intramuscular syringe (Invega Sustenna) 234 mg IM Q28D SCHIZOPHRENIA 01/05/21 [History Last Taken 11/29/21] trazodone 50 mg tablet 50 mg PO QHS INSOMNIA 01/05/21 [History Last Taken 12/09/21] fenofibrate micronized 200 mg capsule 200 mg PO DAILY CHOLESTEROL 03/01/21 [History Last Taken 12/10/21] acetaminophen 500 mg tablet 1,000 mg PO TID PAIN 12/10/21 [History Last Taken 12/10/21] albuterol sulfate 90 mcg/actuation aerosol inhaler (Ventolin HFA) 2 puff inhalation Q4H PRN SHORTNESS OF BREATH 12/10/21 [History Last Taken 12/10/21] calcium polycarbophil 625 mg tablet (Fiber-Tabs) 625 mg PO DAILY CONSTIPATION 12/10/21 [History Last Taken 12/10/21] lamotrigine 100 mg tablet 100 mg PO DAILY MOOD 12/10/21 [History Last Taken 12/10/21] loratadine 10 mg tablet 10 mg PO DAILY RASH 12/10/21 [History Last Taken 12/10/21] oxcarbazepine 150 mg tablet 150 mg PO BID BIPOLAR DISORDER 12/10/21 [History Last Taken 12/10/21] risperidone 1 mg tablet 1.5 mg PO BID SCHIZOPHRENIA 12/10/21 [History Last Taken 12/10/21] triamcinolone acetonide 0.1 % topical cream 1 applic topical Q12H PRN Rash 12/10/21 [History Last Taken 12/03/21] buspirone 5 mg tablet 5 mg PO TID ANXIETY 08/06/22 [History Last Taken Unknown] cetirizine 10 mg tablet 10 mg PO DAILY ALLERGIES/RASH 08/06/22 [History Last Taken Unknown] ferrous sulfate 325 mg (65 mg iron) tablet 325 mg PO DAILY SUPPLEMENT 08/06/22 [History Last Taken Unknown] guaifenesin 400 mg tablet 400 mg PO BID CONGESTION 08/06/22 [History Last Taken Unknown] sertraline 100 mg tablet (Zoloft) 100 mg PO DAILY ANXIETY/DEPRESSION 08/06/22 [History Last Taken Unknown] insulin glargine 100 unit/mL (3 mL) subcutaneous pen 38 unit subcut QHS DIABETES 08/27/22 [History Last Taken Unknown] oxcarbazepine 300 mg tablet 300 mg PO BID BIPOLAR DISORDER 08/27/22 [History Last Taken Unknown] sennosides 8.6 mg tablet 8.6 mg PO Q12H CONSTIPATION 08/27/22 [History Last Taken Unknown] furosemide 20 mg tablet (Lasix) 20 mg PO DAILY #30 tabs 08/30/22 [Rx Last Taken Unknown] gabapentin 600 mg tablet 300 mg (1/2 x 600 mg) PO BID NERVE PAIN 30 days #60 tabs 08/30/22 [Rx Last Taken Unknown] insulin lispro 100 unit/mL subcutaneous pen (Humalog KwikPen (U-100) Insulin) See Protocol subcut ACHS #0 mL 08/30/22 [Rx Last Taken Unknown] polyethylene glycol 3350 17 gram oral powder packet 17 g PO BID #100 ea 08/30/22 [Rx Last Taken Unknown] clindamycin HCl 300 mg capsule (Cleocin HCl) 300 mg PO Q6H #40 CAPSULES 12/16/22 [Rx Last Taken Unknown] Allergy/AdvReac Type Severity Reaction Status Date / Time atorvastatin [From Lipitor] Allergy Unknown Verified 12/16/22 09:39 Penicillins Allergy Unknown Verified 12/16/22 09:39 lisinopril AdvReac Unknown unknown Verified 12/16/22 09:39 codeine AdvReac Upset Verified 12/16/22 09:39 Stomach doxycycline AdvReac Other Verified 12/16/22 09:39 lycopene AdvReac Other Verified 12/16/22 09:39 nickel AdvReac Rash Verified 12/16/22 09:39 Family History Father Arthritis Bleeding disorder Heart disease Hypertension Mother Hypertension Surgical History History of coronary artery stent placement (11/19/17) History of permanent cardiac pacemaker placement (01/08/21) Social History household members: none housing: [facility] Smoking Status: Never smoker alcohol intake: never substance use type: does not use caffeine: Yes ROS ROS ED ROS Narrative A complete review of systems was performed and is negative except as documented in the history of present illness. Some specific details below. Constitutional: No recent fevers or chills. Malaise. He states he feels fine. EYE: No visual complaints or pain. ENT: No difficulty swallowing. No swelling. No pain. And drinking without any difficulty CV: No chest pain or palpitations. Respiratory: No dyspnea. No hemoptysis. No difficulty taking breaths. GI: Abdominal pain. Denies pain in his pelvis. He does have pain in the left buttock area. But he states he is moving his bowels normally. : No frequency dysuria or hematuria. Musculoskeletal: No recent trauma. No pains. Skin: History of present illness. Neuro: No weakness or numbness. Endocrine: No polyuria or polydipsia. EXAM Physical Exam Narrative Exam Narrative: CONSTITUTIONAL: Patient is nontoxic in appearance. The patient looks comfortable. HEENT: No notable trauma. Mucous membranes moist. No sinus tenderness. No indication of pain with swallowing. EYES: No conjunctival injection. No proptosis. CARDIOVASCULAR: Regular rate. Regular rhythm. No notable murmur. No JVD. RESPIRATORY: No respiratory distress. Breathing is unlabored. No wheezes. GASTROINTESTINAL: Not distended. Bowel sounds are normal. No tenderness. No guarding. No rebound. No palpable mass. No bruit. GENITOURINARY: No tenderness over the bladder. Patient does have an open area about 1-1/2 cm around in the left upper buttock. He has some indurated area in that area. It does not seem to involve the anus at all. That area is not tender. It is not actively draining blood or any purulent material. He does have a dressing on it but no wound packing. MUSCULOSKELETAL: Atraumatic. Trace peripheral edema. No tenderness along the deep venous system. NEUROLOGICAL: Patient is alert and appropriate. SKIN: Above. No diaphoresis PSYCHIATRIC: Patient is calm. Mood is appropriate. Const Vital Signs: 12/16/22 09:35 12/16/22 09:40 12/16/22 11:16 Temperature 97.4 F L Temperature Source Oral Pulse Rate 66 67 Respiratory Rate 16 18 Respiratory Effort Normal Blood Pressure 149/67 H 132/61 H Blood Pressure Mean 94 84 Pulse Ox 96 94 Oxygen Delivery Method Room Air Room Air 12/16/22 12:06 12/16/22 13:15 12/16/22 13:31 Temperature Temperature Source Pulse Rate 70 75 78 Respiratory Rate 18 18 18 Respiratory Effort Blood Pressure 123/68 H 127/63 H 135/70 H Blood Pressure Mean 86 91 Pulse Ox 92 94 94 Oxygen Delivery Method Room Air Room Air 12/16/22 14:18 Temperature Temperature Source Pulse Rate 74 Respiratory Rate 18 Respiratory Effort Blood Pressure 126/75 H Blood Pressure Mean 92 Pulse Ox 93 Oxygen Delivery Method Room Air MDM MDM MDM Narrative Medical decision making narrative: We had talked to [facility]. Evidently she was seen by a wound care individual there. They sent person in here for possible referral for debridement. Patient's CBC shows no elevated white count. He does have mild anemia. Platelets are also normal. Patient's electrolytes show chronic renal dysfunction but this really about at his baseline. Glucose is up a little bit at 325. Lactic acid is normal. My independent interpretation of his CT does show some's mild inflammatory changes but does not look abscessed or as if this area goes deep. It final reading did show some increased markings of the left buttock with overlying skin ulceration right This patient has normal vitals. He has normal lactate and normal white count. He does have a lesion on his buttock. This needs ongoing chronic wound care. I do not think he needs acute admission for surgical debridement although follow-up is certainly appropriate. As there is some induration around this I will get him started on antibiotics. We will do some working to pick something that he is not allergic to. His facility can make calls for ongoing wound care, wound care center referral, plastics if needed. But he does not need acute admission and management. Lab Data Labs: Laboratory Results - last 24 hr 12/16/22 12/16/22 10:02 14:02 WBC 8.4 RBC 3.13 L Hgb 9.5 L Hct 30.4 L MCV 97.1 H MCH 30.4 MCHC 31.3 L RDW Std Deviation 45.9 H RDW Coeff of Shashank 12.9 Plt Count 355 MPV 9.9 Immature Gran % (Auto) 0.600 Neut % (Auto) 78.0 H Lymph % (Auto) 9.6 L Anson % (Auto) 9.3 Eos % (Auto) 2.1 Baso % (Auto) 0.4 Absolute Neuts (auto) 6.6 Absolute Lymphs (auto) 0.81 L Nucleated RBC % 0 Sodium 133 L Potassium 4.9 Chloride 101 Carbon Dioxide 27.0 Anion Gap 5 BUN 47 H Creatinine 3.24 H Estim Creat Clear Calc 20.65 Est GFR (MDRD) Af Amer 24 L Est GFR (MDRD) Non-Af 20 L BUN/Creatinine Ratio 14.5 Glucose 325 H Lactic Acid 1.9 Calcium 8.8 POC Glucose 187 H Radiography Diagnostic Testing: Clinical Impression(s) from Imaging Studies Abdomen/Pelvis CT 12/16/22 09:51 IMPRESSION: Increased markings in the medial aspect of the left buttock with overlying skin ulceration. Stable bilateral renal cysts. 1.4 cm nodule in the posterior segment of the left lower lobe. A dedicated CT scan of the chest is recommended for further evaluation. Electronically Signed: James Bean MD at 11:44 EDT , Discharge Plan Triage Chief Complaint: General Illness ED Provider: Clint Gonzalez Dx/Rx/DC Orders Clinical Impression: Diabetic ulcer of left buttock Instructions: Wound Care Prescriptions: New clindamycin HCl [Cleocin HCl] 300 mg capsule 300 mg PO Q6H Qty: 40 0RF No Action aspirin 81 mg tablet,delayed release (DR/EC) 81 mg PO QDAY Hold Instructions: Resume on 01/22/21. nitroglycerin [Nitrostat] 0.4 mg tablet, sublingual 0.4 mg SUBLINGUAL Q5M PRN (Reason: CHEST PAIN) amlodipine 10 mg tablet 10 mg PO DAILY cholecalciferol (vitamin D3) 1,000 unit capsule 1,000 unit PO DAILY fenofibrate micronized 200 mg capsule 200 mg PO DAILY multivitamin 1 EACH tablet 1 tab PO DAILY carvedilol 6.25 MG tablet 6.25 mg PO DAILY levothyroxine 112 mcg tablet 112 mcg PO DAILY trazodone 50 mg Tablet 50 mg PO QHS Invega Sustenna 234 mg/1.5 mL Syringe 234 mg IM Q28D oxcarbazepine 150 mg tablet 150 mg PO BID acetaminophen 500 mg Tablet 1,000 mg PO TID triamcinolone acetonide 0.1 % cream 1 applic TOPICAL Q12H PRN (Reason: Rash) calcium polycarbophil [Fiber-Tabs] 625 mg Tablet 625 mg PO DAILY albuterol sulfate [Ventolin HFA] 90 mcg/actuation Hfa Aerosol Inhaler 2 puff INHALATION Q4H PRN (Reason: SHORTNESS OF BREATH ) risperidone 1 mg tablet 1.5 mg PO BID lamotrigine 100 mg tablet 100 mg PO DAILY loratadine 10 mg Tablet 10 mg PO DAILY buspirone 5 mg Tablet 5 mg PO TID cetirizine 10 mg Tablet 10 mg PO DAILY ferrous sulfate 325 mg (65 mg iron) Tablet 325 mg PO DAILY sertraline [Zoloft] 100 mg Tablet 100 mg PO DAILY guaifenesin 400 mg Tablet 400 mg PO BID sennosides 8.6 mg Tablet 8.6 mg PO Q12H oxcarbazepine 300 mg tablet 300 mg PO BID insulin glargine 100 unit/mL (3 mL) insulin pen 38 unit subcut QHS Hold Instructions: Resume on 09/18/22. Please hold until determining what dose is needed chronically is glucose has been well controlled here and sliding scale insulin polyethylene glycol 3350 17 gram Powder In Packet 17 g PO BID Qty: 100 0RF furosemide [Lasix] 20 mg tablet 20 mg PO DAILY Qty: 30 0RF Rx Instructions: Start 09/01/2022 gabapentin 600 mg Tablet 300 mg PO BID 30 Days Qty: 60 0RF insulin lispro [Humalog KwikPen Insulin] 100 unit/mL Insulin Pen See Protocol subcut ACHS Qty: 0 0RF Protocol: 1. Sliding Scale Insulin Low Dosing Condition: 150-224 mg/dl = 1 unit Condition: 225-299 mg/dl = 2 units Condition: 300-374 mg/dl = 3 units Condition: 375-499 mg/dl = 4 units Condition: Greater than 449 call physician Protocol Text: - Use for Total Daily Dose of Insulin 15-27 units - Thin, elderly, renal patients LOW DOSING ALGORITHM Primary Care Provider: Jace Fallon Referrals: Jace Fallon MD [Primary Care Provider] - Activity Restrictions/Additional Instructions: Contact wound care and/or plastics for ongoing care. Disposition Disposition: Long-Term Facility Discharge Location: [facility] Discharge Date/Time: 12/16/22 14:39
[2022-12-16 10:20] LABS: Absolute Lymphocyte Count 0.81 X10^3/uL (0.83-4.51); Absolute Neutrophil Count 6.6 X10^3/uL (2.0-7.7); Basophil# 0.03 X10^3/uL; Basophil% 0.4 % (0-1); Eosinophil# 0.18 X10^3/uL; Eosinophils% 2.1 % (0-5); Hematocrit 30.4 % (40-54); Hemoglobin 9.5 g/dL (13.0-16.5); Lymphocyte # 0.81 X10^3/ul (0.83-4.51); Lymphocyte % 9.6 % (19-41); Mean Corp Hgb Conc 31.3 g/dL (32-36); Mean Corpuscular Hgb 30.4 pg (27.0-32.0); Mean Corpuscular Volume 97.1 fL (80-94); Mean Platelet Vol. 9.9 fl (6.2-12.0); Monocyte# 0.78 X10^3/uL; Monocyte% 9.3 % (0-10); NRBC Flagged by Analyzer 0 % (0-5); Neutrophil # 6.58 X10^3/uL (2.7-7.7); Platelet Count 355 K/mm3 (150-450); RBC Distribution Width CV 12.9 % (11.6-14.6); RBC Distribution Width SD 45.9 fl (35.1-43.9); Red Blood Count 3.13 M/mm3 (4.6-6.2); White Blood Count 8.4 K/mm3 (4.4-11.0)
[2022-12-16 10:33] LABS: Anion Gap 5 (5-15); BUN 47 mg/dL (7-18); BUN/Creat Ratio 14.5 RATIO (10-20); Calcium,Total 8.8 mg/dL (8.5-10.1); Chloride 101 mmol/L (98-107); Creatinine, Serum 3.24 mg/dL (0.70-1.30); EST Glomerular Filtration Rate 20 mL/min (>60); Est Glom Filt Rate - Afr Amer 24 mL/min (>60); Estimated Creatinine Clearance 20.65 ml/min; Glucose 325 mg/dL (74-106); Potassium 4.9 mmol/L (3.5-5.1); Sodium Level 133 mmol/L (136-145)
[2022-12-16 11:03] LABS: Lactic Acid 1.9 mmol/L (0.4-1.9)
[2022-12-16 11:16] VITALS: BP 132/61; PULSE 67; RESP 18; O2SAT 94
[2022-12-16 12:06] VITALS: BP 123/68; PULSE 70; RESP 18; O2SAT 92
[2022-12-16 13:15] VITALS: BP 127/63; PULSE 75; RESP 18; O2SAT 94
--- NOTE | 2022-12-16 13:21 | ED.RN ---
THIS RN CALLED PT SISTER, RISHI, TO LET HER KNOW PT WILL BE DISCHARGED BACK TO [facility]. CHARGE NURSE CALLED REPORT TO [facility] AT 1323.
--- NOTE | 2022-12-16 13:25 | NURSING ---
CALLED KOFI LEYVA 90 MIN
[2022-12-16 13:31] VITALS: BP 135/70; PULSE 78; RESP 18; O2SAT 94
[2022-12-16 14:18] VITALS: BP 126/75; PULSE 74; RESP 18; O2SAT 93
[2022-12-16 14:21] LABS: Bedside Glucose 187 mg/dL (74-106)
--- NOTE | 2022-12-16 14:32 | ED.RN ---
REPORT GIVEN TO [facility] AT 1430. PT TALKATIVE AND PLEASANT PRIOR TO DISCHARGE.
== END 2022-12-16 14:39 | disposition skilled nursing facility (03) ==
PROVIDERS: Emergency Provider Emergency Medicine; PCP Family Medicine; Visit Provider Emergency Medicine
DX: E11.622 Type 2 diabetes mellitus with other skin ulcer (principal); F25.9 Schizoaffective disorder, unspecified; I13.0 Hypertensive heart and chronic kidney disease with heart failure and stage 1 through stage 4 chronic kidney disease, or unspecified chronic kidney disease; I50.9 Heart failure, unspecified; F31.9 Bipolar disorder, unspecified; E11.22 Type 2 diabetes mellitus with diabetic chronic kidney disease; E11.40 Type 2 diabetes mellitus with diabetic neuropathy, unspecified; I48.0 Paroxysmal atrial fibrillation; Z79.4 Long term (current) use of insulin; N18.32 Chronic kidney disease, stage 3b; E78.5 Hyperlipidemia, unspecified; I25.10 Atherosclerotic heart disease of native coronary artery without angina pectoris; I25.2 Old myocardial infarction; Z79.899 Other long term (current) drug therapy; Z79.82 Long term (current) use of aspirin; F41.9 Anxiety disorder, unspecified; Z95.5 Presence of coronary angioplasty implant and graft; Z95.0 Presence of cardiac pacemaker
CPT/HCPCS: 74176; 80048; 82962; 83605; 85025; 87040; 99284; A4216

== ENCOUNTER 2023-01-09 08:45 | Outpatient (RCR) | payer MEDICARE, MEDICAID, SELFPAY ==
[2020-12-26 13:29] VITALS: BMI 31.8
[2023-01-09 09:19] VITALS: BP 149/78; PULSE 75; RESP 18; TEMP 36.5; BMI 28.4
--- NOTE | 2023-01-09 10:21 | PCM.WC.HP ---
History of Present Illness Date of Service: 01/09/23 Chief Complaint: Left Buttock Ulcer History of Wound: Mr. Rose is a very pleasant 72 yo with a history of Schizoaffective disorder and Memory impairment who was brought in from his facility at the [facility] due to nonhealing left buttock ulcer. Clinical aide who was present with him believes that it has been present for a couple months. She states that it developed after he was admitted at an outside Psych facility for a few weeks. At his current facility, [facility], an alginate and foam dressing have been applied without any significant improvement. History of diabetes mellitus, no documented past A1c but his blood glucose readings have been elevated. laundry aide states that he eats well and is fairly mobile. Patient denies any concerns at this time. [facility] Medical History (Updated 01/09/23 @ 10:[address] Sun Valdez MD) Accidental acetaminophen overdose Acute kidney injury Anxiety Arthritis Atherosclerotic heart disease of [place] coronary artery without angina pectoris Back problem Bipolar disorder Cataracts, bilateral Chronic kidney disease Chronic kidney disease (CKD) stage G3b/A2, moderately decreased glomerular filtration rate (GFR) between 30-44 mL/min/1.73 square meter and albuminuria creatinine ratio between 30-299 mg/g Complete heart block Debility Decubitus ulcer of left buttock, stage 3 Depression Diabetes mellitus, type II Essential hypertension Falls GI problem Gout Headache Heart failure History of ST elevation myocardial infarction (STEMI) (11/19/17) Hyperlipidemia Hypoxia Insomnia Kidney disease Neuropathy Osteoarthritis Paroxysmal atrial fibrillation Partial small bowel obstruction Recurrent UTI Schizoaffective disorder Seasonal allergies Sepsis Syncope Traumatic brain injury Home Medications multivitamin 1 tab PO DAILY HEALTH MAINTENANCE 09/07/16 [History Last Taken 12/10/21] aspirin 81 mg tablet,delayed release 81 mg PO QDAY HEART HEALTH 02/27/17 [History Last Taken 12/10/21] nitroglycerin 0.4 mg sublingual tablet (Nitrostat) 0.4 mg sublingual Q5M PRN CHEST PAIN 02/27/17 [History Last Taken 12/29/18] amlodipine 10 mg tablet 10 mg PO DAILY BLOOD PRESSURE 02/03/19 [History Last Taken 12/10/21] cholecalciferol (vitamin D3) 25 mcg (1,000 unit) capsule 1,000 unit PO DAILY SUPPLEMENT 02/03/19 [History Last Taken 12/10/21] carvedilol 6.25 mg tablet 6.25 mg PO DAILY HEART 03/25/20 [History Last Taken 12/10/21] levothyroxine 112 mcg tablet 112 mcg PO DAILY THYROID 09/23/20 [History Last Taken 12/10/21] paliperidone palmitate 234 mg/1.5 mL intramuscular syringe (Invega Sustenna) 234 mg IM Q28D SCHIZOPHRENIA 01/05/21 [History Last Taken 11/29/21] trazodone 50 mg tablet 50 mg PO QHS INSOMNIA 01/05/21 [History Last Taken 12/09/21] fenofibrate micronized 200 mg capsule 200 mg PO DAILY CHOLESTEROL 03/01/21 [History Last Taken 12/10/21] acetaminophen 500 mg tablet 1,000 mg PO TID PAIN 12/10/21 [History Last Taken 12/10/21] albuterol sulfate 90 mcg/actuation aerosol inhaler (Ventolin HFA) 2 puff inhalation Q4H PRN SHORTNESS OF BREATH 12/10/21 [History Last Taken 12/10/21] calcium polycarbophil 625 mg tablet (Fiber-Tabs) 625 mg PO DAILY CONSTIPATION 12/10/21 [History Last Taken 12/10/21] lamotrigine 100 mg tablet 100 mg PO DAILY MOOD 12/10/21 [History Last Taken 12/10/21] loratadine 10 mg tablet 10 mg PO DAILY RASH 12/10/21 [History Last Taken 12/10/21] oxcarbazepine 150 mg tablet 150 mg PO BID BIPOLAR DISORDER 12/10/21 [History Last Taken 12/10/21] risperidone 1 mg tablet 1.5 mg PO BID SCHIZOPHRENIA 12/10/21 [History Last Taken 12/10/21] triamcinolone acetonide 0.1 % topical cream 1 applic topical Q12H PRN Rash 12/10/21 [History Last Taken 12/03/21] buspirone 5 mg tablet 5 mg PO TID ANXIETY 08/06/22 [History Last Taken Unknown] cetirizine 10 mg tablet 10 mg PO DAILY ALLERGIES/RASH 08/06/22 [History Last Taken Unknown] ferrous sulfate 325 mg (65 mg iron) tablet 325 mg PO DAILY SUPPLEMENT 08/06/22 [History Last Taken Unknown] guaifenesin 400 mg tablet 400 mg PO BID CONGESTION 08/06/22 [History Last Taken Unknown] sertraline 100 mg tablet (Zoloft) 100 mg PO DAILY ANXIETY/DEPRESSION 08/06/22 [History Last Taken Unknown] insulin glargine 100 unit/mL (3 mL) subcutaneous pen 38 unit subcut QHS DIABETES 08/27/22 [History Last Taken Unknown] oxcarbazepine 300 mg tablet 300 mg PO BID BIPOLAR DISORDER 08/27/22 [History Last Taken Unknown] sennosides 8.6 mg tablet 8.6 mg PO Q12H CONSTIPATION 08/27/22 [History Last Taken Unknown] furosemide 20 mg tablet (Lasix) 20 mg PO DAILY #30 tabs 08/30/22 [Rx Last Taken Unknown] gabapentin 600 mg tablet 300 mg (1/2 x 600 mg) PO BID NERVE PAIN 30 days #60 tabs 08/30/22 [Rx Last Taken Unknown] insulin lispro 100 unit/mL subcutaneous pen (Humalog KwikPen (U-100) Insulin) See Protocol subcut ACHS #0 mL 08/30/22 [Rx Last Taken Unknown] polyethylene glycol 3350 17 gram oral powder packet 17 g PO BID #100 ea 08/30/22 [Rx Last Taken Unknown] clindamycin HCl 300 mg capsule (Cleocin HCl) 300 mg PO Q6H #40 CAPSULES 12/16/22 [Rx Last Taken Unknown] Allergy/AdvReac Type Severity Reaction Status Date / Time atorvastatin [From Lipitor] Allergy Unknown Verified 12/16/22 09:39 Penicillins Allergy Unknown Verified 12/16/22 09:39 lisinopril AdvReac Unknown unknown Verified 12/16/22 09:39 codeine AdvReac Upset Verified 12/16/22 09:39 Stomach doxycycline AdvReac Other Verified 12/16/22 09:39 lycopene AdvReac Other Verified 12/16/22 09:39 nickel AdvReac Rash Verified 12/16/22 09:39 Family History Father Arthritis Bleeding disorder Heart disease Hypertension Mother Hypertension Surgical History History of coronary artery stent placement (11/19/17) History of permanent cardiac pacemaker placement (01/08/21) Social History household members: none housing: half-way Smoking Status: Never smoker alcohol intake: never substance use type: does not use caffeine: Yes ROS Constitutional Constitutional: Denies chills, difficulty sleeping, excessive sweating, fatigue, fever(s) or malaise Eyes Eyes: Denies blindness, blurry vision, discharge from eye(s), eye pain, irritation or itchy eyes ENT HEENT: Denies dizziness, dry mouth, loss taste/smell, mouth lesions, sore throat or throat swelling Cardiovascular Cardiovascular: Reports orthopnea; Denies chest pain, dizziness, dyspnea, edema, palpitations or syncope Respiratory/Chest Respiratory/Chest: Reports tachypnea and wheezing; Denies chest congestion, cough, inability to speak or mouth breathing Gastrointestinal Gastrointestinal: Denies abdominal pain, chewing difficulty, constipation, diarrhea, nausea or vomiting Genitourinary Genitourinary: Denies abdominal discomfort Musculoskeletal Musculoskeletal: Denies back pain, extremity pain, joint pain or muscle weakness Integumentary Integumentary: Reports wounds; Denies acne, furuncle, hirsutism, jaundice or skin swelling Neurologic Neurologic: Denies abnormal gait, abnormal speech, confusion, dizziness, headache(s), syncope or vertigo Psychiatric Psychiatric: Denies anxiety, auditory hallucinations, behavioral changes, hallucinations or irritability Endocrine Endocrinology: Denies change in body appearance, deepening of the voice, excessive sweating, heat intolerance or increase in ring/shoe/hat size Allergic/Immunologic Allergic/Immunologic: Denies itchy eyes, lip swelling, throat swelling, tongue swelling, hives or wheezing Vital Signs Vital Signs Vital Signs: 01/09/23 09:19 Temperature 97.7 F L Temperature Source Temporal Pulse Rate 75 Respiratory Rate 18 Blood Pressure 149/78 H Blood Pressure Mean 101 Blood Pressure Source Monitor Blood Pressure Position Semi-Fowlers Blood Pressure Location Left Arm Weight Weight: 198 lb Body Mass Index (BMI) 28.4 Physical Exam Const alert General Appearance: cooperative and comfortable HEENT normocephalic, head/scalp atraumatic and hearing grossly normal bilaterally Eyes EOMs intact bilaterally General Eye: normal appearance of both eyes Neck full ROM and supple General: normal visual inspection Resp normal respiratory effort and normal air movement Effort and Inspection: able to speak in complete sentences Cardio regular rate and regular rhythm GI soft to palpation and non-tender Skin Wounds: wounds noted Neuro CN's II-XII intact bilaterally, moves all extremities and no focal motor deficits Psych mental status grossly normal, thought process normal and cooperative Debridement Note Debridement Note Wound debrided: Left Buttock Wound Grade/Stage: Stage III Type of Debridement: Selective debridement Anesthesia Used: 5% Lidocaine Gel Depth: Down to and including healthy tissue and in the subcutaneous layer Percentage of wound debrided: 100 Instrument Used: 5mm curette Tissue Removed: Slough and devitalized tissue Severity: Fat Layer Exposed Amount of bleeding with debridement: Mild Bleeding Controlled with: Pressure Patient tolerated procedure: Patient tolerated procedure well Post-Debridement Measurements and Additional Note: Post-Debridement Measurements/Treatment - Nurse 1 - General Ulcer Assessment Start: 01/09/23 09:16 Freq: Status: Active Protocol: KAITLIN Activity Type Activity Date Activity User E-sign Co-sign Detail Recorded Client Recorded Date Recorded By Document 01/09/23 09:19 RB Desktop 01/09/23 09:24 RB 01/09/23 09:19 WC - Today's Visit Information Type of service Initial Visit Arrival Mode Wheelchair Transfer Assistance Manual Patient Identification Verified (Name & No ) Patient Requires Transmission-Based No Precautions Height and Weight Height 5 ft 10 in Weight 198 lb Weight in Pounds 198.0 lbs Body Mass Index (BMI) 28.4 BMI Classification Overweight BSA - Marce 2.08 Vital Signs Temperature (97.8 F-99.1 F) 97.7 F L Temperature Source Temporal Pulse Rate (60-100) 75 Pulse Location Monitor Respiratory Rate (12-18) 18 Respiratory rate source Observation Blood Pressure (90/60-120/80) 149/78 H Blood Pressure Mean 101 Source Monitor Position Semi-Fowlers Blood Pressure Location Left Arm History Since Last Visit- (Skip if this is Patient's initial visit) Have you changed medications since your No last visit? Any new allergies or adverse reactions No Had a fall/change in ADL's that may No increase risk of falls Signs or symptoms of abuse and/or No neglect since last visit Have you been in the hospital since your No last visit? Has dressing in place as prescribed Yes Has compression in place as prescribed No Has offloadiing in place as prescribed No Experienced any changes in pain level or No management Pain Scale: 0-10 Numeric Is Patient Pain Free? Yes Communication Assessment Preferred language Kinyar[place]anda Roll Out Manager Required No Able to Read Yes Able to Write Yes Communication Tools None Caregiver Communication Skills No Impairment Impairment Right Hearing Abillity Normal Left Hearing Abillity Normal Visual Assistive Devices Glasses Teaching Assessment Preferences Verbal,Written, Demonstration Barriers to Learning None Readiness To Learn Good Willingness to Engage in Self Management Med Activies Readiness to Engage in Self Management Med Activities Anxiety Level Calm Cooperation Cooperative Perception Coherent Interest in Health Problem Asks Questions Education Importance Acknowledges Need Does Patient Smoke tobacco or other No substances Smoking Status Never smoker Is Patient Diabetic Yes Functional Assessment Recent Decline in Ability to Perform Denies Any Declines Assistive Device With Patient No Culture/Mosque/Photographic Laboratory Technician Cultural/Mosque Needs that may affect No Treatment Plan Would you allow our hospital ammunition storekeeper to No meet you for the purpose of spiritual/ emotional support? Photographic Laboratory Technician to contact place of mandaeism No Teaching: Wound Center *Welcome to the Wound Center -Person Taught Patient -Teaching Method Discussion, Demonstration -Response to teaching Verbalize understanding DOUG - Nurse 1 - General Ulcer Measurement Start: 01/09/23 09:16 Freq: Status: Active Protocol: Activity Type Activity Date Activity User E-sign Co-sign Detail Recorded Client Recorded Date Recorded By Document 01/09/23 09:19 RB Desktop 01/09/23 09:24 RB 01/09/23 09:19 Wound Center Nurse 1 1. L buttock -Combined with other wound No -Current Size (cm) - Length 4 -Current Size (cm) - Width 2.1 -Current Size (cm) - Depth 0.8 -Total Square Cm 8.4 -Photo Taken Yes -Tunneling No -Undermining/Tunneling No -Circular Undermining No -Exudate Amt Medium -Exudate Type Serosanguineous -Wound Margin Distinct, Outline Attached -Granulation Amt Medium (34-66%) -Granulation Quality [place] -Slough/Fibrin Yes -Necrosis Amt Medium (34-66%) -Necrotic Tissue Type Adherent Slough -Structure Exposed N/A -Texture (Keira-wound Skin Appearance) Assessed -Moisture (Keira-wound Skin Appearance) Assessed -Color (Keira-wound Skin Appearance) Assessed -Temperature (Keira-wound Skin No Abnormality Appearance) (Pt Warm) -Tenderness on Palpation (Keira-wound No Skin Appearance) -Ulcer Cleansing Wound Cleanser -Foul Odor after Cleansing No -Anesthetic Used 4% Lidocaine Solution DOUG - Nurse 2 - General Ulcer CM Notes Start: 01/09/23 09:16 Freq: Status: Active Protocol: Activity Type Activity Date Activity User E-sign Co-sign Detail Recorded Client Recorded Date Recorded By Document 01/09/23 09:42 Laptop 01/09/23 09:45 01/09/23 09:42 Wound Center Nurse 2 -Time 09:42 -Correct Patient Yes -Correct Side, Site, Position Yes -Correct Procedure Yes -Procedure Performed Yes -Type of Procedure Debridement -Clinical Debridement Subcutaneous -Tissue Removed Subcutaneous -Post Debridement (cm) - Length 4.2 -Post Debridement (cm) - Width 2.0 -Post Debridement (cm) - Depth 1.5 -Total Square (Post) (cm) 8.40 -Area of Debridement (cm) - Length 4.2 -Area of Debridement (cm) - Width 2.0 -Total Square (Area) (cm) 8.40 -Tunneling No -Undermining/Tunneling No -Circular Undermining No -Wound/Ulcer Outcome Not Healed -Ulcer Cleansing Rinsed/ Irrigated with Saline -Foul Odor after Cleansing No -Bioengineered Tissue No -Bleeding Controlled with Pressure -Treatment Response Procedure Tolerated Well -Offloading No -Pressure Reduction Wheelchair cushion -Debridement - Subq, 1st 20sq cm Yes Pain Scale: 0-10 Numeric Is Patient Pain Free? Yes - Nurse 3 - General Ulcer D/C NN Start: 01/09/23 09:16 Freq: Status: Active Protocol: Activity Type Activity Date Activity User E-sign Co-sign Detail Recorded Client Recorded Date Recorded By Document 01/09/23 10:01 Desktop 01/09/23 10:03 01/09/23 10:01 Wound Care Center Nurse 3 1. L buttock -Ulcer Cleansing Rinsed/ Irrigated with Saline -Primary Dressing Applied Fibracol Plus 4x4 -Other Dressing abd -Primary Dressing Covered/Secured with Secured with Tape -Fibracol Plus 4x4 1 Treatment Response Procedure Tolerated Well Pain Scale: 0-10 Numeric Is Patient Pain Free? Yes - Visit Discharge Discharge Condition Stable Ambulatory Status Ambulatory Transportation Private Auto Medication Reconcilliation completed & No provided to patient/care provider Clinical Summary of Care Provided Yes Charges/Coding Visit Charges Office Visits / Consults: [id number] OV L4 Est Procedures Integumentary [id number]: [id number] Veronique subq tissue 20 sq cm/< Assessment/Plan Assessment/Plan (1) Decubitus ulcer of left buttock, stage 3: CODE(S): L89.323 - Pressure ulcer of left buttock, stage 3 (2) Diabetes mellitus, type II: CODE(S): E11.9 - Type 2 diabetes mellitus without complications QUALIFIERS: Diabetes mellitus complication status: with unspecified complications Diabetes mellitus skilled nursing insulin use: with gas welding machine operator use Qualified Code(s): E11.8 - Type 2 diabetes mellitus with unspecified complications; Z79.4 - manager test (current) use of insulin (3) Debility: CODE(S): R53.81 - Other malaise PLAN: Plan Debridement done as documented above, procedure was well-tolerated. No clinical concerns for infection however, due to chronicity ESR, CRP and prealbumin ordered. A1c also ordered, will review. Consider culture at next visit. Fibrocol daily, cover with gauze and foam dressing. [id number]-[id number] mattress recommended, prescription sent over to his facility. Offloading recommended. Optimal diabetes control. Optimal protein intake. Follow-up in a week or sooner if needed. This note was generated with [employer] software. It may contain incorrect words, spelling, and punctuation that were not noted in checking the note before signing.
== END 2023-01-21 23:59 | disposition home or self-care (01) ==
LOC: WC 08:45
PROVIDERS: PCP Family Medicine; Referring Provider Family Medicine; Visit Provider Internal Medicine
DX: L89.323 Pressure ulcer of left buttock, stage 3 (principal); F25.9 Schizoaffective disorder, unspecified; I13.0 Hypertensive heart and chronic kidney disease with heart failure and stage 1 through stage 4 chronic kidney disease, or unspecified chronic kidney disease; I50.9 Heart failure, unspecified; F31.9 Bipolar disorder, unspecified; E11.22 Type 2 diabetes mellitus with diabetic chronic kidney disease; E11.40 Type 2 diabetes mellitus with diabetic neuropathy, unspecified; Z79.4 Long term (current) use of insulin; N18.32 Chronic kidney disease, stage 3b; G47.00 Insomnia, unspecified; E78.5 Hyperlipidemia, unspecified; Z79.82 Long term (current) use of aspirin; I25.10 Atherosclerotic heart disease of native coronary artery without angina pectoris; R53.81 Other malaise
CPT/HCPCS: 11042; 99213; 99214; G0463

== ENCOUNTER → 2023-01-10 | Outpatient (REF) | payer MEDICARE, MEDICAID, SELFPAY ==
[2020-12-26 13:29] VITALS: BMI 31.8
[2023-01-10 08:27] LABS: Erythrocyte Sedimentation Rate 26 mm/hr (0-20)
[2023-01-10 08:54] LABS: Hemoglobin A1c 8.8 % (3.8-5.6)
[2023-01-10 08:56] LABS: Prealbumin 15.5 mg/dL (20.0-40.0)
== END ==
LOC: OLS.SW 05:00
PROVIDERS: PCP Family Medicine; Visit Provider Family Medicine
DX: E11.9 Type 2 diabetes mellitus without complications (principal)
CPT/HCPCS: 36415; 83036; 84134; 85652; 86140

== ENCOUNTER 2023-02-20 11:30 | Outpatient (RCR) | payer MEDICARE, MEDICAID, SELFPAY ==
[2020-12-26 13:29] VITALS: BMI 31.8
[2023-01-22 00:53] VITALS: BP 149/78; PULSE 75; RESP 18; TEMP 36.5; BMI 28.4
[2023-01-30 09:08] VITALS: BP 163/78; PULSE 69; RESP 16; TEMP 36.1; BMI 28.4
--- NOTE | 2023-01-30 09:37 | PCM.WC.PN ---
History of Present Illness Date of Service: 01/30/23 Chief Complaint: Left Buttock Ulcer History of Wound: Mr. Rose is a very pleasant 72 yo with a history of Schizoaffective disorder and Memory impairment who was brought in from his facility at the [facility] due to nonhealing left buttock ulcer. Clinical aide who was present with him believes that it has been present for a couple months. She states that it developed after he was admitted at an outside Psych facility for a few weeks. At his current facility, [facility], an alginate and foam dressing have been applied without any significant improvement. History of diabetes mellitus, no documented past A1c but his blood glucose readings have been elevated. cotton classer aide states that he eats well and is fairly mobile. Patient denies any concerns at this time. Progress of Wound: No new concerns at this time. Has not been here in 3 weeks. Currently resides in the facility. Labs ordered at his last visit not done. Objective Data Objective Data Vital Signs: Vital Signs Temp Pulse Resp BP O2 Del Method 96.9 F L 69 16 163/78 H Room Air 01/30/23 09:08 01/30/23 09:08 01/30/23 09:08 01/30/23 09:08 01/30/23 09:08 Oxygen Delivery Method Room Air Weight: 198 lb Body Mass Index (BMI) 28.4 Charges/Coding Procedures Integumentary 111xxx-113xx: 54389 Veronique subq tissue 20 sq cm/< Physical Exam Const alert General Appearance: cooperative and comfortable HEENT normocephalic, head/scalp atraumatic and hearing grossly normal bilaterally Eyes EOMs intact bilaterally General Eye: normal appearance of both eyes Neck full ROM and supple General: normal visual inspection Resp normal respiratory effort and normal air movement Effort and Inspection: able to speak in complete sentences Cardio regular rate and regular rhythm GI soft to palpation and non-tender Skin Wounds: wounds noted Neuro CN's II-XII intact bilaterally, moves all extremities and no focal motor deficits Psych mental status grossly normal, thought process normal and cooperative Debridement Note Debridement Note Wound debrided: Left Buttock Wound Grade/Stage: Stage III Type of Debridement: Selective debridement Anesthesia Used: 5% Lidocaine Gel Depth: Down to and including healthy tissue and in the subcutaneous layer Percentage of wound debrided: 100 Instrument Used: 5mm curette Tissue Removed: Slough and devitalized tissue Severity: Fat Layer Exposed Amount of bleeding with debridement: Mild Bleeding Controlled with: Pressure Patient tolerated procedure: Patient tolerated procedure well Post-Debridement Measurements and Additional Note: Post-Debridement Measurements/Treatment - Nurse 1 - General Ulcer Assessment Start: 01/30/23 09:07 Freq: Status: Active Protocol: KAITLIN Activity Type Activity Date Activity User E-sign Co-sign Detail Recorded Client Recorded Date Recorded By Document 01/30/23 09:08 [facility] Desktop 01/30/23 09:12 [facility] 01/30/23 09:08 WC - Today's Visit Information Type of service Follow-up Visit (Physician/SUPERVISOR SPECIAL EFFECTS ) Arrival Mode Ambulatory, Walker Transfer Assistance None Accompanied by caregiver Patient Identification Verified (Name & Yes ) Patient Requires Transmission-Based No Precautions Height and Weight Body Mass Index (BMI) 28.4 BMI Classification Overweight Vital Signs Temperature (97.8 F-99.1 F) 96.9 F L Temperature Source Temporal Pulse Rate (60-100) 69 Pulse Location Monitor Respiratory Rate (12-18) 16 Respiratory rate source Observation Oxygen Delivery Method Room Air Blood Pressure (90/60-120/80) 163/78 H Blood Pressure Mean (mm Hg) 106 Source Monitor Position Sitting Blood Pressure Location Left Arm History Since Last Visit- (Skip if this is Patient's initial visit) Have you changed medications since your No last visit? Any new allergies or adverse reactions No Had a fall/change in ADL's that may No increase risk of falls Signs or symptoms of abuse and/or No neglect since last visit Have you been in the hospital since your No last visit? Has dressing in place as prescribed Yes Has compression in place as prescribed N/A Has offloadiing in place as prescribed N/A Experienced any changes in pain level or No management Left Footwear Regular Shoe Right Footwear Regular Shoe Pain Scale: 0-10 Numeric Is Patient Pain Free? Yes - Nurse 1 - General Ulcer Measurement Start: 01/30/23 09:07 Freq: Status: Active Protocol: Activity Type Activity Date Activity User E-sign Co-sign Detail Recorded Client Recorded Date Recorded By Document 01/30/23 09:08 [facility] Desktop 01/30/23 09:12 [facility] 01/30/23 09:08 Wound Center Nurse 1 1. L buttock -Combined with other wound No -Current Size (cm) - Length 4 -Current Size (cm) - Width 2.2 -Current Size (cm) - Depth 1 -Total Square Cm 8.8 -Photo Taken No -Epithelialization None Present -Tunneling No -Undermining/Tunneling No -Exudate Amt Large -Exudate Type Serosanguineous -Wound Margin Distinct, Outline Attached -Granulation Amt Medium (34-66%) -Granulation Quality [place] -Slough/Fibrin Yes -Necrosis Amt Large (67-100%) -Necrotic Tissue Type Adherent Slough -Texture (Keira-wound Skin Appearance) Assessed, Scarring -Moisture (Keira-wound Skin Appearance) Assessed -Color (Keira-wound Skin Appearance) Assessed -Temperature (Keira-wound Skin No Abnormality Appearance) (Pt Warm) -Tenderness on Palpation (Keira-wound No Skin Appearance) -Ulcer Cleansing Rinsed/ Irrigated with Saline -Foul Odor after Cleansing No -Anesthetic Used 5% Lidocaine Gel WC - Nurse 2 - General Ulcer CM Notes Start: 01/30/23 09:07 Freq: Status: Active Protocol: Activity Type Activity Date Activity User E-sign Co-sign Detail Recorded Client Recorded Date Recorded By Document 01/30/23 09:25 [facility] Desktop 01/30/23 09:29 [facility] 01/30/23 09:25 Wound Center Nurse 2 -Time 09:25 -Correct Patient Yes -Correct Side, Site, Position Yes -Correct Procedure Yes -Procedure Performed Yes -Type of Procedure Debridement -Clinical Debridement Subcutaneous -Tissue Removed Subcutaneous -Post Debridement (cm) - Length 4.0 -Post Debridement (cm) - Width 2.0 -Post Debridement (cm) - Depth 0.2 -Total Square (Post) (cm) 8.00 -Area of Debridement (cm) - Length 4.0 -Area of Debridement (cm) - Width 2.0 -Total Square (Area) (cm) 8.00 -Tunneling No -Undermining/Tunneling No -Circular Undermining No -Wound/Ulcer Outcome Not Healed -Ulcer Cleansing Rinsed/ Irrigated with Saline -Foul Odor after Cleansing No -Bioengineered Tissue No -Bleeding Controlled with Pressure -Treatment Response Procedure Tolerated Well -Assistive Device(s) Wheelchair -Pressure Reduction Wheelchair cushion -Debridement - Subq, 1st 20sq cm Yes Pain Scale: 0-10 Numeric Is Patient Pain Free? No Assessment/Plan Assessment/Plan (1) Decubitus ulcer of left buttock, stage 3: CODE(S): L89.323 - Pressure ulcer of left buttock, stage 3 (2) Diabetes mellitus, type II: CODE(S): E11.9 - Type 2 diabetes mellitus without complications QUALIFIERS: Diabetes mellitus complication status: with unspecified complications Diabetes mellitus alf insulin use: with alf use Qualified Code(s): E11.8 - Type 2 diabetes mellitus with unspecified complications; Z79.4 - joint terminal attack controller (current) use of insulin (3) Debility: CODE(S): R53.81 - Other malaise PLAN: Plan Debridement done as documented above, procedure was well-tolerated. Some improvement in slough burden. Continue Fibrocol daily, cover with gauze and foam dressing. Offloading recommended, prescription for [id number] mattress has been sent to his facility. Optimal diabetes control, yet to receive the labs which were ordered at his last visit. Request sent to facility. Optimal protein intake. Follow-up in a week or sooner if needed. This note was generated with [employer] dictation software. It may contain incorrect words, spelling, and punctuation that were not noted in checking the note before signing.
[2023-02-06 09:37] VITALS: BP 128/64; PULSE 76; RESP 18; TEMP 36.8; BMI 28.4
--- NOTE | 2023-02-06 10:15 | PCM.WC.PN ---
History of Present Illness Date of Service: 02/06/23 Chief Complaint: Left Buttock Ulcer History of Wound: Mr. Rose is a very pleasant 72 yo with a history of Schizoaffective disorder and Memory impairment who was brought in from his facility at the [facility], [place] due to nonhealing left buttock ulcer. Clinical aide who was present with him believes that it has been present for a couple months. She states that it developed after he was admitted at an outside Psych facility for a few weeks. At his current facility, [facility], an alginate and foam dressing have been applied without any significant improvement. History of diabetes mellitus, no documented past A1c but his blood glucose readings have been elevated. occupational therapy aide states that he eats well and is fairly mobile. Patient denies any concerns at this time. Progress of Wound: No new concerns at this time. No significant change in ulcer. Caregiver states that he has been sitting a lot more lately and refuses to get in bed. Objective Data Objective Data Vital Signs: Vital Signs Temp Pulse Resp BP O2 Del Method 98.3 F 76 18 128/64 H Room Air 02/06/23 09:37 02/06/23 09:37 02/06/23 09:37 02/06/23 09:37 01/30/23 09:08 Oxygen Delivery Method Room Air Weight: 198 lb Body Mass Index (BMI) 28.4 Charges/Coding Procedures Integumentary 111xxx-113xx: 38625 Veronique subq tissue 20 sq cm/< Physical Exam Const alert General Appearance: cooperative and comfortable HEENT normocephalic, head/scalp atraumatic and hearing grossly normal bilaterally Eyes EOMs intact bilaterally General Eye: normal appearance of both eyes Neck full ROM and supple General: normal visual inspection Resp normal respiratory effort and normal air movement Effort and Inspection: able to speak in complete sentences Cardio regular rate and regular rhythm GI soft to palpation and non-tender Skin Wounds: wounds noted Neuro CN's II-XII intact bilaterally, moves all extremities and no focal motor deficits Psych mental status grossly normal, thought process normal and cooperative Debridement Note Debridement Note Wound debrided: Left Buttock Wound Grade/Stage: Stage III Type of Debridement: Selective debridement Anesthesia Used: 5% Lidocaine Gel Depth: Down to and including healthy tissue and in the subcutaneous layer Percentage of wound debrided: 100 Instrument Used: 5mm curette Tissue Removed: Slough and devitalized tissue Severity: Fat Layer Exposed Amount of bleeding with debridement: Mild Bleeding Controlled with: Pressure Patient tolerated procedure: Patient tolerated procedure well Post-Debridement Measurements and Additional Note: Post-Debridement Measurements/Treatment - Nurse 1 - General Ulcer Assessment Start: 01/30/23 09:07 Freq: Status: Active Protocol: KAITLIN Activity Type Activity Date Activity User E-sign Co-sign Detail Recorded Client Recorded Date Recorded By Document 01/30/23 09:08 [facility] Desktop 01/30/23 09:12 [facility] Document 02/06/23 09:37 [facility] Desktop 02/06/23 09:45 DL 01/30/23 02/06/23 09:08 09:37 WC - Today's Visit Information Type of service Follow-up Visit Follow-up Visit (Physician/COD CLERK (Physician/COD CLERK ) ) Arrival Mode Ambulatory, Ambulatory, Walker Walker Transfer Assistance None None Accompanied by caregiver Patient Identification Verified (Name & Yes Yes ) Patient Requires Transmission-Based No No Precautions Finger Stick Blood Sugar(mg/dl) (if 98 indicated): Blood Sugar Stated by Patient Height and Weight Body Mass Index (BMI) 28.4 28.4 BMI Classification Overweight Overweight Vital Signs Temperature (97.8 F-99.1 F) 96.9 F L 98.3 F Temperature Source Temporal Temporal Pulse Rate (60-100) 69 76 Pulse Location Monitor Monitor Respiratory Rate (12-18) 16 18 Respiratory rate source Observation Observation Oxygen Delivery Method Room Air Blood Pressure (90/60-120/80) 163/78 H 128/64 H Blood Pressure Mean (mm Hg) 106 85 Source Monitor Monitor Position Sitting Blood Pressure Location Left Arm History Since Last Visit- (Skip if this is Patient's initial visit) Have you changed medications since your No No last visit? Any new allergies or adverse reactions No No Had a fall/change in ADL's that may No No increase risk of falls Signs or symptoms of abuse and/or No No neglect since last visit Have you been in the hospital since your No No last visit? Has dressing in place as prescribed Yes Yes Has compression in place as prescribed N/A N/A Has offloadiing in place as prescribed N/A Yes Experienced any changes in pain level or No No management Left Footwear Regular Shoe Right Footwear Regular Shoe Pain Scale: 0-10 Numeric Is Patient Pain Free? Yes Yes - Nurse 1 - General Ulcer Measurement Start: 01/30/23 09:07 Freq: Status: Active Protocol: Activity Type Activity Date Activity User E-sign Co-sign Detail Recorded Client Recorded Date Recorded By Document 01/30/23 09:08 [facility] Desktop 01/30/23 09:12 [facility] Document 02/06/23 09:37 DL Desktop 02/06/23 09:45 DL 01/30/23 02/06/23 09:08 09:37 Wound Center Nurse 1 1. L buttock -Combined with other wound No -Current Size (cm) - Length 4 4 -Current Size (cm) - Width 2.2 2 -Current Size (cm) - Depth 1 0.7 -Total Square Cm 8.8 8 -Photo Taken No Yes -Epithelialization None Present -Tunneling No -Undermining/Tunneling No -Exudate Amt Large Medium -Exudate Type Serosanguineous Serosanguineous -Wound Margin Distinct, Distinct, Outline Outline Attached Attached -Granulation Amt Medium (34-66%) Medium (34-66%) -Granulation Quality [place] -Slough/Fibrin Yes -Necrosis Amt Large (67-100%) Medium (34-66%) -Necrotic Tissue Type Adherent Slough Adherent Slough -Structure Exposed N/A -Texture (Keira-wound Skin Appearance) Assessed, Scarring Scarring -Moisture (Keira-wound Skin Appearance) Assessed No Abnormality -Color (Keira-wound Skin Appearance) Assessed No Abnormality -Temperature (Keira-wound Skin No Abnormality No Abnormality Appearance) (Pt Warm) (Pt Warm) -Tenderness on Palpation (Keira-wound No No Skin Appearance) -Ulcer Cleansing Rinsed/ Soap and Water Irrigated with Saline -Foul Odor after Cleansing No No -Anesthetic Used 5% Lidocaine 5% Lidocaine Gel Gel WC - Nurse 2 - General Ulcer CM Notes Start: 01/30/23 09:07 Freq: Status: Active Protocol: Activity Type Activity Date Activity User E-sign Co-sign Detail Recorded Client Recorded Date Recorded By Document 01/30/23 09:25 Desktop 01/30/23 09:29 Document 02/06/23 10:04 Desktop 02/06/23 10:08 01/30/23 02/06/23 09:25 10:04 Wound Center Nurse 2 1. L buttock -Time 09:25 10:04 -Correct Patient Yes Yes -Correct Side, Site, Position Yes Yes -Correct Procedure Yes Yes -Procedure Performed Yes Yes -Type of Procedure Debridement Debridement -Clinical Debridement Subcutaneous Subcutaneous -Tissue Removed Subcutaneous Subcutaneous -Post Debridement (cm) - Length 4.0 4.0 -Post Debridement (cm) - Width 2.0 1.7 -Post Debridement (cm) - Depth 0.2 2.0 -Total Square (Post) (cm) 8.00 6.80 -Area of Debridement (cm) - Length 4.0 4.0 -Area of Debridement (cm) - Width 2.0 1.7 -Total Square (Area) (cm) 8.00 6.80 -Tunneling No No -Undermining/Tunneling No No -Circular Undermining No No -Wound/Ulcer Outcome Not Healed Not Healed -Ulcer Cleansing Rinsed/ Rinsed/ Irrigated with Irrigated with Saline Saline -Foul Odor after Cleansing No No -Bioengineered Tissue No No -Bleeding Controlled with Pressure Pressure -Treatment Response Procedure Procedure Tolerated Well Tolerated Well -Offloading No -Assistive Device(s) Wheelchair Wheelchair -Pressure Reduction Wheelchair cushion -Debridement - Subq, 1st 20sq cm Yes Yes Pain Scale: 0-10 Numeric Is Patient Pain Free? 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 No significant change in size. Still has good granulation tissue. Continue Fibrocol daily, cover with gauze and foam dressing. Not offloading. Offloading again very strongly recommended, prescription for [id number] mattress has been sent to his facility. Optimal diabetes control, yet to receive the labs which were ordered at his last visit. Request sent to facility. Optimal protein intake. Follow-up in 2 weeks or sooner if needed due to the holiday. This note was generated with [email or web address] dictation software. It may contain incorrect words, spelling, and punctuation that were not noted in checking the note before signing.
[2023-02-20 11:44] VITALS: BP 132/52; PULSE 59; RESP 16; TEMP 35.9; BMI 28.4
--- NOTE | 2023-02-20 12:47 | PCM.WC.PN ---
History of Present Illness Date of Service: 02/20/23 Chief Complaint: Left Buttock Ulcer History of Wound: Mr. Rose is a very pleasant 72 yo with a history of Schizoaffective disorder and Memory impairment who was brought in from his facility at the [facility] due to nonhealing left buttock ulcer. Clinical aide who was present with him believes that it has been present for a couple months. She states that it developed after he was admitted at an outside Psych facility for a few weeks. At his current facility, [facility], an alginate and foam dressing have been applied without any significant improvement. History of diabetes mellitus, no documented past A1c but his blood glucose readings have been elevated. legal aide states that he eats well and is fairly mobile. Patient denies any concerns at this time. Progress of Wound: No new concerns at this time. Some improvement noted. Objective Data Objective Data Vital Signs: Vital Signs Temp Pulse Resp BP O2 Del Method 96.7 F L 59 L 16 132/52 H Room Air 02/20/23 11:44 02/20/23 11:44 02/20/23 11:44 02/20/23 11:44 02/20/23 11:44 Oxygen Delivery Method Room Air Weight: 198 lb Body Mass Index (BMI) 28.4 Charges/Coding Procedures Integumentary 111xxx-113xx: 13629 Veronique subq tissue 20 sq cm/< Physical Exam Const alert General Appearance: cooperative and comfortable HEENT normocephalic, head/scalp atraumatic and hearing grossly normal bilaterally Eyes EOMs intact bilaterally General Eye: normal appearance of both eyes Neck full ROM and supple General: normal visual inspection Resp normal respiratory effort and normal air movement Effort and Inspection: able to speak in complete sentences Cardio regular rate and regular rhythm GI soft to palpation and non-tender Skin Wounds: wounds noted Neuro CN's II-XII intact bilaterally, moves all extremities and no focal motor deficits Psych mental status grossly normal, thought process normal and cooperative Debridement Note Debridement Note Wound debrided: Left Buttock Wound Grade/Stage: Stage III Type of Debridement: Selective debridement Anesthesia Used: 5% Lidocaine Gel Depth: Down to and including healthy tissue and in the subcutaneous layer Percentage of wound debrided: 100 Instrument Used: 5mm curette Tissue Removed: Slough and devitalized tissue Severity: Fat Layer Exposed Amount of bleeding with debridement: Mild Bleeding Controlled with: Pressure Patient tolerated procedure: Patient tolerated procedure well Post-Debridement Measurements and Additional Note: Post-Debridement Measurements/Treatment WC - Nurse 1 - General Ulcer Assessment Start: 01/30/23 09:07 Freq: Status: Active Protocol: KAITLIN Activity Type Activity Date Activity User E-sign Co-sign Detail Recorded Client Recorded Date Recorded By Document 01/30/23 09:08 BMF Desktop 01/30/23 09:12 BMF Document 02/06/23 09:37 DL Desktop 02/06/23 09:45 DL Document 02/20/23 11:44 BMF Desktop 02/20/23 11:47 BMF 01/30/23 02/06/23 02/20/23 09:08 09:37 11:44 WC - Today's Visit Information Type of service Follow-up Visit Follow-up Visit Follow-up Visit (Physician/SERVICE ENGINE REPAIRER (Physician/SERVICE ENGINE REPAIRER (Physician/SERVICE ENGINE REPAIRER ) ) ) Arrival Mode Ambulatory, Ambulatory, Ambulatory, Walker Walker Walker Transfer Assistance None None None Accompanied by caregiver Patient Identification Verified (Name & Yes Yes Yes ) Patient Requires Transmission-Based No No No Precautions Finger Stick Blood Sugar(mg/dl) (if 98 indicated): Blood Sugar Stated by Patient Height and Weight Body Mass Index (BMI) 28.4 28.4 28.4 BMI Classification Overweight Overweight Overweight Vital Signs Temperature (97.8 F-99.1 F) 96.9 F L 98.3 F 96.7 F L Temperature Source Temporal Temporal Temporal Pulse Rate (60-100) 69 76 59 L Pulse Location Monitor Monitor Monitor Respiratory Rate (12-18) 16 18 16 Respiratory rate source Observation Observation Observation Oxygen Delivery Method Room Air Room Air Blood Pressure (90/60-120/80) 163/78 H 128/64 H 132/52 H Blood Pressure Mean (mm Hg) 106 85 78 Source Monitor Monitor Monitor Position Sitting Sitting Blood Pressure Location Left Arm Left Arm History Since Last Visit- (Skip if this is Patient's initial visit) Have you changed medications since your No No No last visit? Any new allergies or adverse reactions No No No Had a fall/change in ADL's that may No No No increase risk of falls Signs or symptoms of abuse and/or No No No neglect since last visit Have you been in the hospital since your No No No last visit? Has dressing in place as prescribed Yes Yes Yes Has compression in place as prescribed N/A N/A N/A Has offloadiing in place as prescribed N/A Yes N/A Experienced any changes in pain level or No No No management Left Footwear Regular Shoe Regular Shoe Right Footwear Regular Shoe Regular Shoe Pain Scale: 0-10 Numeric Is Patient Pain Free? Yes Yes Yes WC - Nurse 1 - General Ulcer Measurement Start: 01/30/23 09:07 Freq: Status: Active Protocol: Activity Type Activity Date Activity User E-sign Co-sign Detail Recorded Client Recorded Date Recorded By Document 01/30/23 09:08 BMF Desktop 01/30/23 09:12 BMF Document 02/06/23 09:37 DL Desktop 02/06/23 09:45 DL Document 02/20/23 11:44 BM Desktop 02/20/23 11:47 BMF 01/30/23 02/06/23 02/20/23 09:08 09:37 11:44 Wound Center Nurse 1 1. L buttock -Combined with other wound No No -Current Size (cm) - Length 4 4 4 -Current Size (cm) - Width 2.2 2 1.4 -Current Size (cm) - Depth 1 0.7 0.3 -Total Square Cm 8.8 8 5.6 -Date of Last Picture (Recall this 02/20/23 field) -Photo Taken No Yes Yes -Epithelialization None Present None Present -Tunneling No No -Undermining/Tunneling No No -Circular Undermining No -Exudate Amt Large Medium Medium -Exudate Type Serosanguineous Serosanguineous Serosanguineous -Wound Margin Distinct, Distinct, Distinct, Outline Outline Outline Attached Attached Attached -Granulation Amt Medium (34-66%) Medium (34-66%) Large (67-100%) -Granulation Quality [place] -Slough/Fibrin Yes Yes -Necrosis Amt Large (67-100%) Medium (34-66%) Small (1-33%) -Necrotic Tissue Type Adherent Slough Adherent Slough Adherent Slough -Structure Exposed N/A -Texture (Keira-wound Skin Appearance) Assessed, Scarring Assessed, Scarring Scarring -Moisture (Keira-wound Skin Appearance) Assessed No Abnormality Assessed,Dry/ Scaly -Color (Keira-wound Skin Appearance) Assessed No Abnormality Assessed -Temperature (Keira-wound Skin No Abnormality No Abnormality No Abnormality Appearance) (Pt Warm) (Pt Warm) (Pt Warm) -Tenderness on Palpation (Keira-wound No No No Skin Appearance) -Ulcer Cleansing Rinsed/ Soap and Water Rinsed/ Irrigated with Irrigated with Saline Saline -Foul Odor after Cleansing No No No -Anesthetic Used 5% Lidocaine 5% Lidocaine 5% Lidocaine Gel Gel Gel WC - Nurse 2 - General Ulcer CM Notes Start: 01/30/23 09:07 Freq: Status: Active Protocol: Activity Type Activity Date Activity User E-sign Co-sign Detail Recorded Client Recorded Date Recorded By Document 01/30/23 09:25 GM Desktop 01/30/23 09:29 GM Document 02/06/23 10:04 GM Desktop 02/06/23 10:08 GM Document 02/20/23 12:18 GM Desktop 02/20/23 12:19 01/30/23 02/06/23 02/20/23 09:25 10:04 12:18 Wound Center Nurse 2 1. L buttock -Time 09:25 10:04 12:18 -Correct Patient Yes Yes Yes -Correct Side, Site, Position Yes Yes Yes -Correct Procedure Yes Yes Yes -Procedure Performed Yes Yes Yes -Type of Procedure Debridement Debridement Debridement -Clinical Debridement Subcutaneous Subcutaneous Subcutaneous -Tissue Removed Subcutaneous Subcutaneous Subcutaneous -Post Debridement (cm) - Length 4.0 4.0 3.5 -Post Debridement (cm) - Width 2.0 1.7 1.5 -Post Debridement (cm) - Depth 0.2 2.0 1.0 -Total Square (Post) (cm) 8.00 6.80 5.25 -Area of Debridement (cm) - Length 4.0 4.0 3.5 -Area of Debridement (cm) - Width 2.0 1.7 1.5 -Total Square (Area) (cm) 8.00 6.80 5.25 -Tunneling No No No -Undermining/Tunneling No No No -Circular Undermining No No No -Wound/Ulcer Outcome Not Healed Not Healed Not Healed -Ulcer Cleansing Rinsed/ Rinsed/ Rinsed/ Irrigated with Irrigated with Irrigated with Saline Saline Saline -Foul Odor after Cleansing No No No -Bioengineered Tissue No No No -Bleeding Controlled with Pressure Pressure Pressure -Treatment Response Procedure Procedure Procedure Tolerated Well Tolerated Well Tolerated Well -Offloading No -Assistive Device(s) Wheelchair Wheelchair -Pressure Reduction Wheelchair cushion -Debridement - Open, 1st 20sq cm No -Debridement - Subq, 1st 20sq cm Yes Yes Yes -Debridement - Muscle / Fascia, 1st No 20sq cm -Debridement - Bone, 1st 20sq cm No Pain Scale: 0-10 Numeric Is Patient Pain Free? No Yes Yes - Nurse 3 - General Ulcer D/C NN Start: 01/30/23 09:07 Freq: Status: Active Protocol: Activity Type Activity Date Activity User E-sign Co-sign Detail Recorded Client Recorded Date Recorded By Document 02/06/23 10:14 DL Desktop 02/06/23 10:16 DL Document 02/20/23 12:21 GM Desktop 02/20/23 12:22 02/06/23 02/20/23 10:14 12:21 Wound Care Center Nurse 3 1. L buttock -Ulcer Cleansing Rinsed/ Not Cleansed Irrigated with Saline -Foul Odor after Cleansing No No -Primary Dressing Applied Fibracol Plus Fibracol Plus 4x4 4x4 -Primary Dressing Covered/Secured with Dry Gauze, Dry Gauze, Secured with Secured with Tape Tape -Fibracol Plus 4x4 1 1 Treatment Response Procedure Tolerated Well Pain Scale: 0-10 Numeric Is Patient Pain Free? Yes Yes Teaching: Wound Center Dressing the wound -Person Taught Patient -Teaching Method Discussion -Response to teaching Verbalize understanding WC - Visit Discharge Discharge Condition Stable Stable Ambulatory Status Walker Ambulatory, Walker Transportation [facility] trans [facility] transport Medication Reconcilliation completed & Yes provided to patient/care provider Clinical Summary of Care Provided Yes Facility Type [facility] Facility Orders Sent Yes Assessment/Plan Assessment/Plan (1) Decubitus ulcer of left buttock, stage 3: CODE(S): L89.323 - Pressure ulcer of left buttock, stage 3 (2) Diabetes mellitus, type II: CODE(S): E11.9 - Type 2 diabetes mellitus without complications QUALIFIERS: Diabetes mellitus complication status: with unspecified complications Diabetes mellitus regional intermodal truck driver insulin use: with regional intermodal truck driver use Qualified Code(s): E11.8 - Type 2 diabetes mellitus with unspecified complications; Z79.4 - terminal gauger supervisor (current) use of insulin (3) Debility: CODE(S): R53.81 - Other malaise PLAN: Plan Debridement done as documented above, procedure was well-tolerated. Some improvement noted. Continue Fibracol daily, cover with gauze and foam dressing. Continue offloading, prescription for [id number] mattress has been sent to his facility. Optimal diabetes control and protein intake. His questions were answered and he was advised to let us know if he has any further questions or concerns. Follow-up in 2 weeks or sooner if needed. This note was generated with [employer] dictation software. It may contain incorrect words, spelling, and punctuation that were not noted in checking the note before signing.
== END 2023-02-20 23:59 | disposition home or self-care (01) ==
LOC: WC 11:30
PROVIDERS: PCP Family Medicine; Referring Provider Family Medicine; Visit Provider Internal Medicine
DX: L89.323 Pressure ulcer of left buttock, stage 3 (principal); E11.8 Type 2 diabetes mellitus with unspecified complications; Z79.4 Long term (current) use of insulin; R53.81 Other malaise
CPT/HCPCS: 11042

== ENCOUNTER 2023-03-20 10:15 | Outpatient (RCR) | payer MEDICARE, MEDICAID, SELFPAY ==
[2020-12-26 13:29] VITALS: BMI 31.8
[2023-02-21 00:49] VITALS: BP 132/52; PULSE 59; RESP 16; TEMP 35.9; BMI 28.4
[2023-03-06 11:37] VITALS: BP 127/71; PULSE 74; RESP 16; TEMP 36.5; BMI 28.4
--- NOTE | 2023-03-06 12:55 | PN.PCM_ITS ---
History of Present Illness Date of Service: 03/06/23 Chief Complaint: Left Buttock Ulcer History of Wound: Mr. Rose is a very pleasant 72 yo with a history of Schizoaffective disorder and Memory impairment who was brought in from his facility at the [facility], [place], operated by [facility] due to nonhealing left buttock ulcer. Clinical aide who was present with him believes that it has been present for a couple months. She states that it developed after he was admitted at an outside Psych facility for a few weeks. At his current facility, [facility], an alginate and foam dressing have been applied without any significant improvement. History of diabetes mellitus, no documented past A1c but his blood glucose readings have been elevated. ward aide states that he eats well and is fairly mobile. Patient denies any concerns at this time. Progress of Wound: Improving. No new concerns at this time. Objective Data Objective Data Vital Signs: Vital Signs Temp Pulse Resp BP O2 Del Method 97.7 F L 74 16 127/71 H Room Air 03/06/23 11:37 03/06/23 11:37 03/06/23 11:37 03/06/23 11:37 03/06/23 11:37 Oxygen Delivery Method Room Air Weight: 198 lb Body Mass Index (BMI) 28.4 Charges/Coding Procedures Integumentary 111xxx-113xx: 10464 Veronique subq tissue 20 sq cm/< Physical Exam Const alert General Appearance: cooperative and comfortable HEENT normocephalic, head/scalp atraumatic and hearing grossly normal bilaterally Eyes EOMs intact bilaterally General Eye: normal appearance of both eyes Neck full ROM and supple General: normal visual inspection Resp normal respiratory effort Effort and Inspection: able to speak in complete sentences Skin Wounds: wounds noted Neuro CN's II-XII intact bilaterally, moves all extremities and no focal motor deficits Psych mental status grossly normal, thought process normal and cooperative Debridement Note Debridement Note Wound debrided: Left Buttock ( Cluster ) Wound Grade/Stage: Stage III Type of Debridement: Selective debridement Anesthesia Used: 5% Lidocaine Gel Depth: Down to and including healthy tissue and in the subcutaneous layer Percentage of wound debrided: 100 Instrument Used: 5mm curette Tissue Removed: Slough and devitalized tissue Severity: Fat Layer Exposed Amount of bleeding with debridement: Mild Bleeding Controlled with: Pressure Patient tolerated procedure: Patient tolerated procedure well Post-Debridement Measurements and Additional Note: Post-Debridement Measurements/Treatment WC - Nurse 1 - General Ulcer Assessment Start: 03/06/23 11:36 Freq: Status: Active Protocol: KAITLIN Activity Type Activity Date Activity User E-sign Co-sign Detail Recorded Client Recorded Date Recorded By Document 03/06/23 11:37 [facility] Desktop 03/06/23 11:47 [facility] 03/06/23 11:37 WC - Today's Visit Information Type of service Follow-up Visit (Physician/INCOME TAX ADJUSTER ) Arrival Mode Ambulatory, Walker Transfer Assistance None Accompanied by caregiver Patient Identification Verified (Name & Yes ) Patient Requires Transmission-Based No Precautions Height and Weight Body Mass Index (BMI) 28.4 BMI Classification Overweight Vital Signs Temperature (97.8 F-99.1 F) 97.7 F L Temperature Source Temporal Pulse Rate (60-100) 74 Pulse Location Monitor Respiratory Rate (12-18) 16 Respiratory rate source Observation Oxygen Delivery Method Room Air Blood Pressure (90/60-120/80) 127/71 H Blood Pressure Mean (mm Hg) 89 Source Monitor Position Sitting Blood Pressure Location Right Arm History Since Last Visit- (Skip if this is Patient's initial visit) Have you changed medications since your No last visit? Any new allergies or adverse reactions No Had a fall/change in ADL's that may No increase risk of falls Signs or symptoms of abuse and/or No neglect since last visit Have you been in the hospital since your No last visit? Has dressing in place as prescribed Yes Has compression in place as prescribed N/A Has offloadiing in place as prescribed N/A Experienced any changes in pain level or No management Left Footwear Regular Shoe Right Footwear Regular Shoe Pain Scale: 0-10 Numeric Is Patient Pain Free? No wound' -Description Burning -Intensity 4 -Pain Behavior No Change in Behavior -Pain Aggravating Factors Sitting -Alleviating Factors/Interventions Turning/ Repositioning, Distraction, Will continue to monitor, Patient denies need for intervention, Emotional Support - Nurse 1 - General Ulcer Measurement Start: 03/06/23 11:36 Freq: Status: Active Protocol: Activity Type Activity Date Activity User E-sign Co-sign Detail Recorded Client Recorded Date Recorded By Document 03/06/23 11:37 [facility] Desktop 03/06/23 11:47 [facility] 03/06/23 11:37 Wound Center Nurse 1 1. L buttock -Combined with other wound No -Current Size (cm) - Length 0.7 -Current Size (cm) - Width 1.5 -Current Size (cm) - Depth 0.5 -Total Square Cm 1.05 -Date of Last Picture (Recall this 03/06/23 field) -Photo Taken Yes -Tunneling No -Undermining/Tunneling No -Circular Undermining No -Exudate Amt Medium -Exudate Type Serosanguineous -Wound Margin Distinct, Outline Attached -Granulation Amt Large (67-100%) -Granulation Quality Pale,Red -Slough/Fibrin Yes -Necrosis Amt Small (1-33%) -Necrotic Tissue Type Adherent Slough -Texture (Keira-wound Skin Appearance) Assessed, Scarring -Moisture (Keira-wound Skin Appearance) Assessed -Color (Keira-wound Skin Appearance) Assessed -Temperature (Keira-wound Skin No Abnormality Appearance) (Pt Warm) -Tenderness on Palpation (Keira-wound No Skin Appearance) -Ulcer Cleansing Soap and Water -Foul Odor after Cleansing No -Anesthetic Used 5% Lidocaine Gel WC - Nurse 2 - General Ulcer CM Notes Start: 03/06/23 11:36 Freq: Status: Active Protocol: Activity Type Activity Date Activity User E-sign Co-sign Detail Recorded Client Recorded Date Recorded By Document 03/06/23 12:00 [facility] Desktop 03/06/23 12:02 [facility] 03/06/23 12:00 Wound Center Nurse 2 -Time 12:00 -Correct Patient Yes -Correct Side, Site, Position Yes -Correct Procedure Yes -Procedure Performed Yes -Type of Procedure Debridement -Clinical Debridement Subcutaneous -Tissue Removed Subcutaneous -Post Debridement (cm) - Length 3.9 -Post Debridement (cm) - Width 1 -Post Debridement (cm) - Depth 0.2 -Total Square (Post) (cm) 3.9 -Area of Debridement (cm) - Length 3.9 -Area of Debridement (cm) - Width 1.0 -Total Square (Area) (cm) 3.90 -Tunneling No -Undermining/Tunneling No -Circular Undermining No -Wound/Ulcer Outcome Not Healed -Ulcer Cleansing Rinsed/ Irrigated with Saline -Foul Odor after Cleansing No -Bioengineered Tissue No -Bleeding Controlled with Pressure -Treatment Response Procedure Tolerated Well -Assistive Device(s) Walker -Debridement - Subq, 1st 20sq cm Yes Pain Scale: 0-10 Numeric Is Patient Pain Free? Yes - Nurse 3 - General Ulcer D/C NN Start: 03/06/23 11:36 Freq: Status: Active Protocol: Activity Type Activity Date Activity User E-sign Co-sign Detail Recorded Client Recorded Date Recorded By Document 03/06/23 12:03 [facility] Desktop 03/06/23 12:04 [facility] 03/06/23 12:03 Wound Care Center Nurse 3 1. L buttock -Ulcer Cleansing Rinsed/ Irrigated with Saline -Foul Odor after Cleansing No -Primary Dressing Applied Fibracol Plus 4x4 -Primary Dressing Covered/Secured with Dry Gauze, Secured with Tape -Fibracol Plus 4x4 1 Pain Scale: 0-10 Numeric Is Patient Pain Free? Yes WC - Visit Discharge Discharge Condition Stable Ambulatory Status Ambulatory Transportation Private Auto Medication Reconcilliation completed & Yes provided to patient/care provider Clinical Summary of Care Provided Yes Assessment/Plan Assessment/Plan (1) Decubitus ulcer of left buttock, stage 3: CODE(S): L89.323 - Pressure ulcer of left buttock, stage 3 (2) Diabetes mellitus, type II: CODE(S): E11.9 - Type 2 diabetes mellitus without complications QUALIFIERS: Diabetes mellitus complication status: with unspecified complications Diabetes mellitus fpc insulin use: with roasterman use Qualified Code(s): E11.8 - Type 2 diabetes mellitus with unspecified complications; Z79.4 - group home (current) use of insulin (3) Debility: CODE(S): R53.81 - Other malaise PLAN: Plan Debridement done as documented above, procedure was well-tolerated. Improving. Continue Fibracol daily, cover with gauze and foam dressing. Continue offloading, prescription for [id number] mattress has been sent to his facility. Optimal diabetes control and protein intake. His questions were answered and he was advised to let us know if he has any further questions or concerns. Follow-up in 2 weeks or sooner if needed. This note was generated with [employer]cope dictation software. It may contain incorrect words, spelling, and punctuation that were not noted in checking the note before signing.
[2023-03-20 09:50] VITALS: BP 126/52; PULSE 59; RESP 18; TEMP 36.2; BMI 28.4
--- NOTE | 2023-03-20 10:52 | PN.PCM_ITS ---
History of Present Illness Date of Service: 03/20/23 Chief Complaint: Left Buttock Ulcer History of Wound: Mr. Rose is a very pleasant 72 yo with a history of Schizoaffective disorder and Memory impairment who was brought in from his facility at the [facility] due to nonhealing left buttock ulcer. Clinical aide who was present with him believes that it has been present for a couple months. She states that it developed after he was admitted at an outside Psych facility for a few weeks. At his current facility, [facility], an alginate and foam dressing have been applied without any significant improvement. History of diabetes mellitus, no documented past A1c but his blood glucose readings have been elevated. 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 Patient denies any concerns at this time. Progress of Wound: Improving. No new concerns at this time. Objective Data Objective Data Vital Signs: Vital Signs Temp Pulse Resp BP O2 Del Method 97.1 F L 59 L 18 126/52 H Room Air 03/20/23 09:50 03/20/23 09:50 03/20/23 09:50 03/20/23 09:50 03/20/23 09:50 Oxygen Delivery Method Room Air Weight: 198 lb Body Mass Index (BMI) 28.4 Charges/Coding Procedures Integumentary 111xxx-113xx: [id number] Veronique subq tissue 20 sq cm/< Physical Exam Const alert General Appearance: cooperative and comfortable HEENT normocephalic, head/scalp atraumatic and hearing grossly normal bilaterally Eyes EOMs intact bilaterally General Eye: normal appearance of both eyes Neck full ROM and supple General: normal visual inspection Resp normal respiratory effort Effort and Inspection: able to speak in complete sentences Skin Wounds: wounds noted Neuro CN's II-XII intact bilaterally, moves all extremities and no focal motor deficits Psych mental status grossly normal, thought process normal and cooperative Debridement Note Debridement Note Wound debrided: Left Buttock ( Cluster ) Wound Grade/Stage: Stage III Type of Debridement: Selective debridement Anesthesia Used: 5% Lidocaine Gel Depth: Down to and including healthy tissue and in the subcutaneous layer Percentage of wound debrided: 100 Instrument Used: 5mm curette Tissue Removed: Slough and devitalized tissue Severity: Fat Layer Exposed Amount of bleeding with debridement: Mild Bleeding Controlled with: Pressure Patient tolerated procedure: Patient tolerated procedure well Post-Debridement Measurements and Additional Note: Post-Debridement Measurements/Treatment WC - Nurse 1 - General Ulcer Assessment Start: 03/06/23 11:36 Freq: Status: Active Protocol: KAITLIN Activity Type Activity Date Activity User E-sign Co-sign Detail Recorded Client Recorded Date Recorded By Document 03/06/23 11:37 [facility] Desktop 03/06/23 11:47 BM Document 03/20/23 09:50 [facility] Desktop 03/20/23 09:59 [facility] 03/06/23 03/20/23 11:37 09:50 WC - Today's Visit Information Type of service Follow-up Visit Follow-up Visit (Physician/SEISMIC SURVEY ASSISTANT (Physician/SEISMIC SURVEY ASSISTANT ) ) Arrival Mode Ambulatory, Ambulatory, Walker Walker Transfer Assistance None None Accompanied by caregiver CAREGIVER FROM [facility] Patient Identification Verified (Name & Yes Yes ) Patient Requires Transmission-Based No No Precautions Height and Weight Body Mass Index (BMI) 28.4 28.4 BMI Classification Overweight Overweight Vital Signs Temperature (97.8 F-99.1 F) 97.7 F L 97.1 F L Temperature Source Temporal Temporal Pulse Rate (60-100) 74 59 L Pulse Location Monitor Monitor Respiratory Rate (12-18) 16 18 Respiratory rate source Observation Observation Oxygen Delivery Method Room Air Room Air Blood Pressure (90/60-120/80) 127/71 H 126/52 H Blood Pressure Mean (mm Hg) 89 76 Source Monitor Monitor Position Sitting Sitting Blood Pressure Location Right Arm Left Arm History Since Last Visit- (Skip if this is Patient's initial visit) Have you changed medications since your No No last visit? Any new allergies or adverse reactions No No Had a fall/change in ADL's that may No No increase risk of falls Signs or symptoms of abuse and/or No No neglect since last visit Have you been in the hospital since your No No last visit? Has dressing in place as prescribed Yes Yes Has compression in place as prescribed N/A Has offloadiing in place as prescribed N/A N/A Experienced any changes in pain level or No No management Left Footwear Regular Shoe Regular Shoe Right Footwear Regular Shoe Regular Shoe Pain Scale: 0-10 Numeric Is Patient Pain Free? No Yes wound' -Description Burning -Intensity 4 -Pain Behavior No Change in Behavior -Pain Aggravating Factors Sitting -Alleviating Factors/Interventions Turning/ Repositioning, Distraction, Will continue to monitor, Patient denies need for intervention, Emotional Support WC - Nurse 1 - General Ulcer Measurement Start: 03/06/23 11:36 Freq: Status: Active Protocol: Activity Type Activity Date Activity User E-sign Co-sign Detail Recorded Client Recorded Date Recorded By Document 03/06/23 11:37 [facility] Desktop 03/06/23 11:47 BM Document 03/20/23 09:50 [facility] Desktop 03/20/23 09:59 F 03/06/23 03/20/23 11:37 09:50 Wound Center Nurse 1 1. L buttock -Combined with other wound No No -Current Size (cm) - Length 0.7 0.6 -Current Size (cm) - Width 1.5 0.6 -Current Size (cm) - Depth 0.5 0.3 -Total Square Cm 1.05 0.36 -Date of Last Picture (Recall this 03/06/23 field) -Photo Taken Yes -Epithelialization None Present -Tunneling No No -Undermining/Tunneling No No -Circular Undermining No No -Exudate Amt Medium Medium -Exudate Type Serosanguineous Serosanguineous -Wound Margin Distinct, Distinct, Outline Outline Attached Attached -Granulation Amt Large (67-100%) Medium (34-66%) -Granulation Quality Pale,Red [place] -Slough/Fibrin Yes Yes -Necrosis Amt Small (1-33%) Small (1-33%) -Necrotic Tissue Type Adherent Slough Adherent Slough -Texture (Keira-wound Skin Appearance) Assessed, Assessed, Scarring Scarring -Moisture (Keira-wound Skin Appearance) Assessed Assessed -Color (Keira-wound Skin Appearance) Assessed Assessed -Temperature (Ekira-wound Skin No Abnormality No Abnormality Appearance) (Pt Warm) (Pt Warm) -Tenderness on Palpation (Keira-wound No No Skin Appearance) -Ulcer Cleansing Soap and Water Rinsed/ Irrigated with Saline -Foul Odor after Cleansing No No -Anesthetic Used 5% Lidocaine 5% Lidocaine Gel Gel WC - Nurse 2 - General Ulcer CM Notes Start: 03/06/23 11:36 Freq: Status: Active Protocol: Activity Type Activity Date Activity User E-sign Co-sign Detail Recorded Client Recorded Date Recorded By Document 03/06/23 12:00 [facility] Desktop 03/06/23 12:02 [facility] Document 03/20/23 10:24 Desktop 03/20/23 10:28 03/06/23 03/20/23 12:00 10:24 Wound Center Nurse 2 1. L buttock -Time 12:00 10:24 -Correct Patient Yes Yes -Correct Side, Site, Position Yes Yes -Correct Procedure Yes Yes -Procedure Performed Yes Yes -Type of Procedure Debridement Debridement -Clinical Debridement Subcutaneous Subcutaneous -Tissue Removed Subcutaneous Subcutaneous -Post Debridement (cm) - Length 3.9 1.0 -Post Debridement (cm) - Width 1 0.7 -Post Debridement (cm) - Depth 0.2 0.1 -Total Square (Post) (cm) 3.9 0.70 -Area of Debridement (cm) - Length 3.9 1.0 -Area of Debridement (cm) - Width 1.0 0.7 -Total Square (Area) (cm) 3.90 0.70 -Tunneling No No -Undermining/Tunneling No No -Circular Undermining No No -Wound/Ulcer Outcome Not Healed Not Healed -Ulcer Cleansing Rinsed/ Rinsed/ Irrigated with Irrigated with Saline Saline -Foul Odor after Cleansing No No -Bioengineered Tissue No No -Bleeding Controlled with Pressure Pressure -Treatment Response Procedure Procedure Tolerated Well Tolerated Well -Assistive Device(s) Walker -Debridement - Subq, 1st 20sq cm Yes Yes Pain Scale: 0-10 Numeric Is Patient Pain Free? Yes Yes - Nurse 3 - General Ulcer D/C NN Start: 03/06/23 11:36 Freq: Status: Active Protocol: Activity Type Activity Date Activity User E-sign Co-sign Detail Recorded Client Recorded Date Recorded By Document 03/06/23 12:03 [facility] Desktop 03/06/23 12:04 [facility] Document 03/20/23 10:34 Desktop 03/20/23 10:35 03/06/23 03/20/23 12:03 10:34 Wound Care Center Nurse 3 1. L buttock -Ulcer Cleansing Rinsed/ Not Cleansed Irrigated with Saline -Foul Odor after Cleansing No No -Primary Dressing Applied Fibracol Plus Fibracol Plus 4x4 4x4 -Primary Dressing Covered/Secured with Dry Gauze, Dry Gauze, Secured with Secured with Tape Tape -Fibracol Plus 4x4 1 1 Pain Scale: 0-10 Numeric Is Patient Pain Free? Yes Yes Teaching: Wound Center Dressing the wound -Person Taught Patient -Teaching Method Discussion -Response to teaching Verbalize understanding, Reinforcement needed WC - Visit Discharge Discharge Condition Stable Stable Ambulatory Status Ambulatory Walker Transportation Private [facility] Medication Reconcilliation completed & Yes Yes provided to patient/care provider Clinical Summary of Care Provided Yes Yes Assessment/Plan Assessment/Plan (1) Decubitus ulcer of left buttock, stage 3: CODE(S): L89.323 - Pressure ulcer of left buttock, stage 3 (2) Diabetes mellitus, type II: CODE(S): E11.9 - Type 2 diabetes mellitus without complications QUALIFIERS: Diabetes mellitus complication status: with unspecified complications Diabetes mellitus intermission coordinator insulin use: with intermission coordinator use Qualified Code(s): E11.8 - Type 2 diabetes mellitus with unspecified complications; Z79.4 - group home (current) use of insulin (3) Debility: CODE(S): R53.81 - Other malaise PLAN: Plan Debridement done as documented above, procedure was well-tolerated. Improving. Continue Fibracol daily, cover with gauze and foam dressing. Optimal diabetes control and protein intake. His questions were answered and he was advised to let us know if he has any further questions or concerns. Follow-up in 2 weeks or sooner if needed. This note was generated with [employer] dictation software. It may contain incorrect words, spelling, and punctuation that were not noted in checking the note before signing.
== END 2023-03-23 23:59 | disposition home or self-care (01) ==
LOC: WC 10:15
PROVIDERS: PCP Family Medicine; Referring Provider Family Medicine; Visit Provider Internal Medicine
DX: L89.323 Pressure ulcer of left buttock, stage 3 (principal); E11.9 Type 2 diabetes mellitus without complications; R53.81 Other malaise
CPT/HCPCS: 11042

== ENCOUNTER 2023-03-24 11:30 | Inpatient (IN) | payer MEDICARE, MEDICAID, SELFPAY ==
[2020-12-26 13:29] VITALS: BMI 31.8
[2023-03-24] VITALS (19 sets, daily range): BP systolic 104–140; BP diastolic 48–87; PULSE 69–102; RESP 16–26; TEMP 36.2–37.4; O2SAT 82–98; BMI 30.5; BMI 27.4
--- NOTE | 2023-03-24 11:47 | EDS_ITS ---
HPI History of Present Illness Chief Complaint: Shortness of Breath Informant: patient and EMS Narrative Narrative: Patient presents with dyspnea cough and hypoxia. Patient is not a good informant for his history. Reviewing prior records indicates that this is likely chronic and has poor memory. But he does admit to coughing. No blood. No pain. He states his breathing is okay now. He is evidently at [facility] and they have a lot of influenza and COVID right now. Patient was having trouble breathing in the was found to have saturations in the 80s. He is not on routine oxygen. EMS got his saturations about 83%. With a breathing treatment and oxygen they got him up to about 94%. But he is only 90% on 6 L at this time still showing notable relative hypoxia [facility] Medical History (Updated 03/24/23 @ 13:[address] Clint Gonzalez MD) Accidental acetaminophen overdose Acute kidney injury Anxiety Arthritis Atherosclerotic heart disease of [place] coronary artery without angina pectoris Back problem Bipolar disorder Cataracts, bilateral Chronic kidney disease (CKD) stage G3b/A2, moderately decreased glomerular filtration rate (GFR) between 30-44 mL/min/1.73 square meter and albuminuria creatinine ratio between 30-299 mg/g Complete heart block Debility Decubitus ulcer of left buttock, stage 3 Depression Diabetes mellitus, type II Essential hypertension Falls Gout Headache Heart failure History of ST elevation myocardial infarction (STEMI) (11/19/17) Hyperlipidemia Hypoxia Insomnia Kidney disease Neuropathy Osteoarthritis Paroxysmal atrial fibrillation Partial small bowel obstruction Recurrent UTI Schizoaffective disorder Seasonal allergies Sepsis Syncope Traumatic brain injury Home Medications multivitamin 1 tab PO DAILY HEALTH MAINTENANCE 09/07/16 [History Last Taken 12/10/21] aspirin 81 mg tablet,delayed release 81 mg PO QDAY [facility] 02/27/17 [History Last Taken 12/10/21] nitroglycerin 0.4 mg sublingual tablet (Nitrostat) 0.4 mg sublingual Q5M PRN CHEST PAIN 02/27/17 [History Last Taken 12/29/18] amlodipine 10 mg tablet 10 mg PO DAILY BLOOD PRESSURE 02/03/19 [History Last Taken 12/10/21] cholecalciferol (vitamin D3) 25 mcg (1,000 unit) capsule 1,000 unit PO DAILY SUPPLEMENT 02/03/19 [History Last Taken 12/10/21] carvedilol 6.25 mg tablet 6.25 mg PO DAILY HEART 03/25/20 [History Last Taken 12/10/21] levothyroxine 112 mcg tablet 112 mcg PO DAILY THYROID 09/23/20 [History Last Taken 12/10/21] paliperidone palmitate 234 mg/1.5 mL intramuscular syringe (Invega Sustenna) 234 mg IM Q28D SCHIZOPHRENIA 01/05/21 [History Last Taken 11/29/21] trazodone 50 mg tablet 50 mg PO QHS INSOMNIA 01/05/21 [History Last Taken 12/09/21] fenofibrate micronized 200 mg capsule 200 mg PO DAILY CHOLESTEROL 03/01/21 [History Last Taken 12/10/21] acetaminophen 500 mg tablet 1,000 mg PO TID PAIN 12/10/21 [History Last Taken 12/10/21] albuterol sulfate 90 mcg/actuation aerosol inhaler (Ventolin HFA) 2 puff inhalation Q4H PRN SHORTNESS OF BREATH 12/10/21 [History Last Taken 12/10/21] calcium polycarbophil 625 mg tablet (Fiber-Tabs) 625 mg PO DAILY CONSTIPATION 12/10/21 [History Last Taken 12/10/21] lamotrigine 100 mg tablet 100 mg PO DAILY MOOD 12/10/21 [History Last Taken 12/10/21] loratadine 10 mg tablet 10 mg PO DAILY RASH 12/10/21 [History Last Taken 12/10/21] oxcarbazepine 150 mg tablet 150 mg PO BID BIPOLAR DISORDER 12/10/21 [History Last Taken 12/10/21] risperidone 1 mg tablet 1.5 mg PO BID SCHIZOPHRENIA 12/10/21 [History Last Taken 12/10/21] triamcinolone acetonide 0.1 % topical cream 1 applic topical Q12H PRN Rash 12/10/21 [History Last Taken 12/03/21] buspirone 5 mg tablet 5 mg PO TID ANXIETY 08/06/22 [History Last Taken Unknown] cetirizine 10 mg tablet 10 mg PO DAILY ALLERGIES/RASH 08/06/22 [History Last Taken Unknown] ferrous sulfate 325 mg (65 mg iron) tablet 325 mg PO DAILY SUPPLEMENT 08/06/22 [History Last Taken Unknown] guaifenesin 400 mg tablet 400 mg PO BID CONGESTION 08/06/22 [History Last Taken Unknown] sertraline 100 mg tablet (Zoloft) 100 mg PO DAILY ANXIETY/DEPRESSION 08/06/22 [History Last Taken Unknown] insulin glargine 100 unit/mL (3 mL) subcutaneous pen 38 unit subcut QHS DIABETES 08/27/22 [History Last Taken Unknown] oxcarbazepine 300 mg tablet 300 mg PO BID BIPOLAR DISORDER 08/27/22 [History Last Taken Unknown] sennosides 8.6 mg tablet 8.6 mg PO Q12H CONSTIPATION 08/27/22 [History Last Taken Unknown] furosemide 20 mg tablet (Lasix) 20 mg PO DAILY #30 tabs 08/30/22 [Rx Last Taken Unknown] gabapentin 600 mg tablet 300 mg (1/2 x 600 mg) PO BID NERVE PAIN 30 days #60 tabs 08/30/22 [Rx Last Taken Unknown] insulin lispro 100 unit/mL subcutaneous pen (Humalog KwikPen (U-100) Insulin) See Protocol subcut ACHS #0 mL 08/30/22 [Rx Last Taken Unknown] polyethylene glycol 3350 17 gram oral powder packet 17 g PO BID #100 ea 08/30/22 [Rx Last Taken Unknown] clindamycin HCl 300 mg capsule (Cleocin HCl) 300 mg PO Q6H #40 CAPSULES 12/16/22 [Rx Last Taken Unknown] Allergy/AdvReac Type Severity Reaction Status Date / Time atorvastatin [From Lipitor] Allergy Unknown Verified 12/16/22 09:39 Penicillins Allergy Unknown Verified 12/16/22 09:39 lisinopril AdvReac Unknown unknown Verified 12/16/22 09:39 codeine AdvReac Upset Verified 12/16/22 09:39 Stomach doxycycline AdvReac Other Verified 12/16/22 09:39 lycopene AdvReac Other Verified 12/16/22 09:39 nickel AdvReac Rash Verified 12/16/22 09:39 Family History Father Arthritis Bleeding disorder Heart disease Hypertension Mother Hypertension Surgical History History of coronary artery stent placement (11/19/17) History of permanent cardiac pacemaker placement (01/08/21) Social History household members: none housing: detention Smoking Status: Never smoker alcohol intake: never substance use type: does not use caffeine: Yes ROS ROS ED ROS Narrative Review of systems is severely limited. Patient is not a good informant for details. Pertinent positives are what we know from the nursing facility and the few direct questions he will answer. Cardiovascular Cardiovascular: Denies chest pain Respiratory/Chest Respiratory/Chest: Reports cough and dyspnea Gastrointestinal Gastrointestinal: Denies vomiting Allergic/Immunologic Allergic/Immunologic ED: Denies urticaria EXAM Physical Exam Narrative Exam Narrative: CONSTITUTIONAL: Patient looks weak. But he is in no distress. His saturations are borderline especially for the oxygen and he is on. HEENT: No notable trauma. Mucous membranes moist. EYES: No conjunctival injection. No pallor. NECK:No JVD. No stridor. CARDIOVASCULAR: Regular rate. Slightly irregular rhythm. No notable murmur. No JVD. Pacer in left upper chest. RESPIRATORY: His breathing is actually not markedly labored. But he does have coarse breath sounds and some wheeze. He sounds more coarse on the right. He is not really good at taking deep breaths. Again, his saturations are only about 90% on 6 L nasal cannula. He was recorded as 82 and 84 here but he has gotten better. GASTROINTESTINAL: Not distended. Bowel sounds are normal. No tenderness. No guarding. No rebound. No palpable mass. No bruit is heard. GENITOURINARY: No tenderness over the bladder. MUSCULOSKELETAL: Atraumatic. Mild chronic peripheral edema. NEUROLOGICAL: Patient is alert and not sleepy or lethargic. But he is not a good informant for details. SKIN: No noted rashes. No diaphoresis. PSYCHIATRIC: Patient is calm. Mood is appropriate. Const Vital Signs: 03/24/23 11:31 03/24/23 11:36 03/24/23 11:39 Temperature 99.4 F H 99.4 F H Temperature Source Temporal Temporal Pulse Rate 84 76 Respiratory Rate 25 H 23 H Respiratory Effort Short of Breath Labored Respiratory Depth Deep Respiratory Pattern Tachypnea Blood Pressure 129/65 H 120/66 Blood Pressure Mean 86 84 Pulse Ox 82 84 Oxygen Delivery Method Room Air Room Air Nasal Cannula Oxygen Flow Rate (L/min) 6 03/24/23 12:06 03/24/23 13:08 03/24/23 13:08 Temperature 98.4 F Temperature Source Temporal Pulse Rate 80 74 Respiratory Rate 16 26 H Respiratory Effort Respiratory Depth Respiratory Pattern Normal Blood Pressure 128/76 H Blood Pressure Mean 93 Pulse Ox 95 95 Oxygen Delivery Method Nasal Cannula Nasal Cannula Oxygen Flow Rate (L/min) 5 5 03/24/23 13:36 Temperature Temperature Source Pulse Rate 80 Respiratory Rate 22 H Respiratory Effort Respiratory Depth Respiratory Pattern Blood Pressure 105/68 Blood Pressure Mean 80 Pulse Ox 95 Oxygen Delivery Method Nasal Cannula Oxygen Flow Rate (L/min) MDM MDM MDM Narrative Medical decision making narrative: My independent interpretation of the patient's single view AP chest x-ray shows pacer he has poor volumes. There is some increased markings in the bases that could be atelectasis. Cannot rule out small effusions. Final reading is hypoventilatory and mild atelectatic changes. Patient CBC shows mildly elevated white count at 12.9. Hemoglobin is minimally low. Platelets are normal. Patient's electrolytes show some mildly low sodium. He has chronic renal d ysfunction with creatinine at 3.26 which is really near his baseline. His glucose is minimally up at 155. His lactic acid is normal at 1.2. Troponin is negative at 16. Patient's BNP is elevated 815. But his x-ray and overall presentation does not fit primarily CHF. Patient is also in atrial flutter. But his rate is controlled. He does have a history of intermittent fib flutter. Although he is not currently on anticoagulation. His RSV is come back positive. COVID and influenza are negative. He is moving better air after breathing treatments. He sounds much better especially on the right. He is oxygenating at 94% on 5 L which is a marked improvement. We are turning him down to 4 to see how he will do. But with his overall weakness, significant hypoxia we will bring him in the hospital. I discussed the case with hospitalist. Lab Data Attestation: I reviewed the patient's lab results. Labs: Laboratory Results - last 24 hr 03/24/23 11:41 WBC 12.9 H RBC 3.76 L Hgb 11.0 L Hct 33.9 L MCV 90.2 MCH 29.3 MCHC 32.4 RDW Std Deviation 47.5 H RDW Coeff of Shashank 14.3 Plt Count 298 MPV 10.1 Immature Gran % (Auto) 0.300 Neut % (Auto) 83.8 H Lymph % (Auto) 4.6 L Coffee % (Auto) 10.5 H Eos % (Auto) 0.5 Baso % (Auto) 0.3 Absolute Neuts (auto) 10.8 H Absolute Lymphs (auto) 0.59 L Nucleated RBC % 0 Differential Comment SCANNED Sodium 130 L Potassium 4.5 Chloride 98 Carbon Dioxide 25.0 Anion Gap 7 BUN 45 H Creatinine 3.26 H Estim Creat Clear Calc 18.59 Est GFR (MDRD) Af Amer 24 L Est GFR (MDRD) Non-Af 20 L BUN/Creatinine Ratio 13.8 Glucose 155 H Lactic Acid 1.2 Calcium 9.3 Troponin I High Sens 16 B-Natriuretic Peptide 815.5 H Radiography Diagnostic Testing: Clinical Impression(s) from Imaging Studies Chest X-Ray 03/24/23 11:55 IMPRESSION: Hypoventilatory and mild atelectatic changes. Electronically Signed: Nicholas Molina MD at 12:23 EST , EKG Initial EKG: Comments: My independent interpretation of the patient's EKG shows what appears to be atrial flutter with variable block. Rate is overall controlled at 74. No ventricular ectopy. No acute ST elevation or depression. Management Discussion w/another healthcare provider: Hospitalist Discharge Plan Triage Chief Complaint: Shortness of Breath ED Provider: Clint Gonzalez Dx/Rx/DC Orders Clinical Impression: Atrial flutter, Chronic kidney disease, RSV infection, Hypoxia Prescriptions: No Action aspirin 81 mg tablet,delayed release (DR/EC) 81 mg PO QDAY Hold Instructions: Resume on 01/22/21. nitroglycerin [Nitrostat] 0.4 mg tablet, sublingual 0.4 mg SUBLINGUAL Q5M PRN (Reason: CHEST PAIN) amlodipine 10 mg tablet 10 mg PO DAILY cholecalciferol (vitamin D3) 1,000 unit capsule 1,000 unit PO DAILY fenofibrate micronized 200 mg capsule 200 mg PO DAILY multivitamin 1 EACH tablet 1 tab PO DAILY carvedilol 6.25 MG tablet 6.25 mg PO DAILY levothyroxine 112 mcg tablet 112 mcg PO DAILY trazodone 50 mg Tablet 50 mg PO QHS Invega Sustenna 234 mg/1.5 mL Syringe 234 mg IM Q28D oxcarbazepine 150 mg tablet 150 mg PO BID acetaminophen 500 mg Tablet 1,000 mg PO TID triamcinolone acetonide 0.1 % cream 1 applic TOPICAL Q12H PRN (Reason: Rash) calcium polycarbophil [Fiber-Tabs] 625 mg Tablet 625 mg PO DAILY albuterol sulfate [Ventolin HFA] 90 mcg/actuation Hfa Aerosol Inhaler 2 puff INHALATION Q4H PRN (Reason: SHORTNESS OF BREATH ) risperidone 1 mg tablet 1.5 mg PO BID lamotrigine 100 mg tablet 100 mg PO DAILY loratadine 10 mg Tablet 10 mg PO DAILY buspirone 5 mg Tablet 5 mg PO TID cetirizine 10 mg Tablet 10 mg PO DAILY ferrous sulfate 325 mg (65 mg iron) Tablet 325 mg PO DAILY sertraline [Zoloft] 100 mg Tablet 100 mg PO DAILY guaifenesin 400 mg Tablet 400 mg PO BID sennosides 8.6 mg Tablet 8.6 mg PO Q12H oxcarbazepine 300 mg tablet 300 mg PO BID insulin glargine 100 unit/mL (3 mL) insulin pen 38 unit subcut QHS Hold Instructions: Resume on 09/18/22. Please hold until determining what dose is needed chronically is glucose has been well controlled here and sliding scale insulin polyethylene glycol 3350 17 gram Powder In Packet 17 g PO BID Qty: 100 0RF furosemide [Lasix] 20 mg tablet 20 mg PO DAILY Qty: 30 0RF Rx Instructions: Start 09/01/2022 gabapentin 600 mg Tablet 300 mg PO BID 30 Days Qty: 60 0RF insulin lispro [Humalog KwikPen Insulin] 100 unit/mL Insulin Pen See Protocol subcut ACHS Qty: 0 0RF Protocol: 1. Sliding Scale Insulin Low Dosing Condition: 150-224 mg/dl = 1 unit Condition: 225-299 mg/dl = 2 units Condition: 300-374 mg/dl = 3 units Condition: 375-499 mg/dl = 4 units Condition: Greater than 449 call physician Protocol Text: - Use for Total Daily Dose of Insulin 15-27 units - Thin, elderly, renal patients LOW DOSING ALGORITHM clindamycin HCl [Cleocin HCl] 300 mg capsule 300 mg PO Q6H Qty: 40 0RF Primary Care Provider: Jace Fallon Referrals: Jace Fallon MD [Primary Care Provider] - Disposition Disposition: Home, Self Care
[2023-03-24 11:54] LABS: Absolute Lymphocyte Count 0.59 X10^3/uL (0.83-4.51); Absolute Neutrophil Count 10.8 X10^3/uL (2.0-7.7); Basophil# 0.04 X10^3/uL; Basophil% 0.3 % (0-1); Eosinophil# 0.06 X10^3/uL; Eosinophils% 0.5 % (0-5); Hematocrit 33.9 % (40-54); Lymphocyte # 0.59 X10^3/ul (0.83-4.51); Lymphocyte % 4.6 % (19-41); Mean Corp Hgb Conc 32.4 g/dL (32-36); Mean Corpuscular Hgb 29.3 pg (27.0-32.0); Mean Corpuscular Volume 90.2 fL (80-94); Mean Platelet Vol. 10.1 fl (6.2-12.0); Monocyte# 1.35 X10^3/uL; Monocyte% 10.5 % (0-10); NRBC Flagged by Analyzer 0 % (0-5); Neutrophil # 10.79 X10^3/uL (2.7-7.7); Neutrophil % 83.8 % (47-70); POSITIVE DIFFERENTIAL YES; POSITIVE MORPHOLOGY YES; Platelet Count 298 K/mm3 (150-450); RBC Distribution Width CV 14.3 % (11.6-14.6); RBC Distribution Width SD 47.5 fl (35.1-43.9); Red Blood Count 3.76 M/mm3 (4.6-6.2); White Blood Count 12.9 K/mm3 (4.4-11.0)
--- NOTE | 2023-03-24 11:55 | RAD_ITS ---
INDICATION: cough, hypoxia EXAMINATION/TECHNIQUE: X-RAY - XR Chest 1 View COMPARISON: Prior study dated: 09/01/2022. FINDINGS: LINES/DEVICES: Left-sided dual-chamber pacer device in stable position. LUNGS: Hypoventilatory and atelectatic changes in the right lung base. No focal infiltrate is definitely seen. No evidence of pleural effusions. MEDIASTINUM AND CARDIOVASCULAR STRUCTURES: Cardiac silhouette not enlarged. Central airways and mediastinal contour are unremarkable. BONES AND SOFT TISSUES: Unchanged. RAD/Chest 1 View (Portable) IMPRESSION: Hypoventilatory and mild atelectatic changes. Electronically Signed: Nicholas Molina MD at 12:23 EST ,
[2023-03-24 11:59] LABS: Differential Indicated SCAN CRITERIA MET
[2023-03-24] MEDS: Ipratropium/Albuterol Sulfate 3 ML AMPUL.NEB INHALATION (12:06)
[2023-03-24 12:10] LABS: BNP,B-Type NATRIURETIC PEPTIDE 815.5 pg/mL (0-100)
[2023-03-24 12:11] LABS: Differential Comment SCANNED
[2023-03-24 12:13] LABS: Anion Gap 7 (5-15); BUN 45 mg/dL (7-18); BUN/Creat Ratio 13.8 RATIO (10-20); Calcium,Total 9.3 mg/dL (8.5-10.1); Chloride 98 mmol/L (98-107); Creatinine, Serum 3.26 mg/dL (0.70-1.30); EST Glomerular Filtration Rate 20 mL/min (>60); Est Glom Filt Rate - Afr Amer 24 mL/min (>60); Estimated Creatinine Clearance 18.59 ml/min; Glucose 155 mg/dL (74-106); Potassium 4.5 mmol/L (3.5-5.1); Sodium Level 130 mmol/L (136-145); Troponin-I HS 16 pg/mL (3.0-78.0)
[2023-03-24 12:19] LABS: Lactic Acid 1.2 mmol/L (0.4-1.9)
--- OUTSIDE RECORDS SUMMARY | 2023-03-24 12:55 | XMS RPT_ITS | CCD ---
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 325 mg (65 mg iron) tablet Take 1 tablet by mouth daily with breakfast. carvedilol (COREG) 6.25 mg tablet Take 1 tablet by mouth twice daily. blood sugar diagnostic (BLOOD GLUCOSE TEST) test strip Test blood sugar(s) 3 times daily. Dx: Type 2 DM - Uncontrolled E11.65 Insulin: Yes Lancets lancets Test blood sugar(s) 3 times daily. Dx: Type 2 DM - Uncontrolled E11.65 Insulin: Yes alcohol swabs (ALCOHOL PADS) Will use 3 times daily with prep for glucose testing fenofibrate nanocrystallized (TRICOR) 145 mg tablet Take 1 tablet by mouth as needed. aspirin, enteric coated (ASPIRIN, ENTERIC COATED) 81 mg EC tablet Take 1 tablet by mouth once daily. amLODIPine (NORVASC) 10 mg tablet Take 1 tablet by mouth once daily. oxybutynin (DITROPAN) 5 mg tablet Take 1 tablet by mouth three times daily. multivitamin (DAILY-ERICA) tablet Take 1 tablet by mouth once daily. gabapentin (NEURONTIN) 600 mg tablet Take 1 tablet by mouth twice daily for 180 days. fluticasone (FLONASE) 50 mcg/actuation nasal spray Use 2 Sprays in each nostril once daily. Rinse mouth after use. erythromycin ophthalmic ointment Use 1 application in both eyes daily at bedtime. diclofenac sodium (VOLTAREN) 1 % topical gel Apply 2 g to affected area once daily. nitroglycerin sublingual (NITROSTAT) 0.4 mg SL tablet DISSOLVE ONE TABLET UNDER/ON THE TONGUE NEEDED FOR CHEST PAIN, IF NO RELIEF CALL 911 sodium chloride (SALINE MIST) 0.65 % nasal spray Use 1 [place] in the nose as needed. ticagrelor (BRILINTA) 90 mg tablet Take 1 tablet by mouth twice daily. ARIPiprazole (ABILIFY MAINTENA) 400 mg sers Inject 400 mg intramuscularly every 4 weeks. Receives at counseling center per Dr. Flores/ conchis Pierce albuterol HFA (VENTOLIN HFA) 90 mcg/actuation inhaler Inhale 2 Puffs as instructed every 4 hours as needed for Wheezing/Shortness of Breath. COMPOUNDED PRESCRIPTION UCare Pen Needle 31G x 8MM /16 . Use twice daily for insulin administration. E11.8 COMPOUNDED PRESCRIPTION Prime GLUCOSE METER TESTING TWICE DAILY DX E11.9. INSULIN YES. Insulin [place], Disposable, 31 gauge x 1/4 ndle USE TWICE DAILY FOR INSULIN ADMINISTRATION FAMILY HISTORY Problem Relation Age of Onset - Thyroid Mother - Alcohol/Drug Father Social History Tobacco Use - Smo (more content not included)... [facility] 08-16-2020 Note HNO ID: [id number] Author: Jefe Trimble MD Service: ? Author Type: Physician Type: Progress Notes Filed: 08/16/2020 2:00 PM Note Text: Assessment and Plan 1. Type 2 diabetes mellitus without retinopathy (HCC) -no diabetic retinopathy both eyes 2. Dry eye syndrome of both eyes -in setting of decreased blink both eyes (dementia) 3. Pseudophakia -stable s/p YAG capsulotomy both eyes 4. Refractive error -asking for updated manifest refraction Plan: -Continue blood sugar and blood pressure control -new glasses prescription given at patient's request -artificial tears twice a day both eyes -follow-up 1 year with dilated fundus exam / sooner as needed I have confirmed and edited as necessary the relevant ophthalmic history, ROS, and the neuro exam findings as obtained by others. I have seen and examined Renato Noonan. I have discussed the case and the management of this patient's care with the Resident/Fellow, if applicable. I also have reviewed and agree with the assessment and plan as stated above and agree with all of its relevant components. Jefe Trimble MD August 16, 2020 1:59 PM [facility] 08-16-2020 Note Patient Outreach (SHAVON TNAV) RENATO NOONAN ([id number]) 1950 M Date Time Provider Department 08/16/20 GELA BERKOWITZ During your visit today, we recorded the following information about you: Gela Moreno 08/16/2020 9:50 AM Signed POPULATION HEALTH NAVIGATION OUTREACH Action/FYI Spoke w patient and scheduled MEGHANN Contact made with patient or family member? YES Pt identified by name and : YES Outreach Outcome/Action Spoke to patient or caregiver: Patient scheduled in Specialty Reason for Outreach Care Gap or Scheduling/Wellness visits Payer: Payor: [employer] AND BLUE SHIELD / Plan: [employer] HMO / Product Type: HMO / Care Gap Reviewed:: Diabetic Eye Exam Reminder: Reminder note to check Health Maintenance for items below Health Maintenance items due: SHINGRIX VACCINE(2 of 3) due on 05/17/2010 ADVANCE DIRECTIVE DISCUSSION Never done DILATED RETINAL EXAM due on 01/28/2019 DEPRESSION SCREENING due on 08/14/2019 COLORECTAL CANCER SCREENING due on 10/06/2019 HBA1C due on 12/10/2019 HEMOGLOBIN/HEMATOCRIT due on 02/16/2020 DIABETIC FOOT EXAM due on 02/25/2020 LDL CHOLESTEROL due on 05/20/2020 COVID-19 VACCINE(2 - Pfizer 2-dose series) due on 06/24/2020 Advanced Directives Completed: Have you ever planned for future healthcare decisions with a power of health care attorney, living will, or advance directives? Referrals: Message Sent to Practice: NO Navigation Signature: Gela Moreno August 16, 2020 9:50 AM Allergies As of Date: 08/16/2020 Noted Allergy Reaction CODEINE 08/21/2005 8 - GI Upset DOXYCYCLINE 08/22/2007 2 - Rash LIPITOR (ATORVASTATIN CALCIUM) 02/09/2014 14 - Other: See Comments Comments: CK elevation LISINOPRIL 09/12/2008 3 - Cough metals [Other] 02/20/2007 2 - Rash PENICILLINS 11/16/2004 Comments: as a child Date Reviewed: 07/07/2020 Reviewed by: Kristal Allen Ma - Fully Assessed Reason for Visit: Population Health Navigation Outreach [3910] Cmt: Deferred Care Prescriptions as of 08/16/2020 Sig: CHOLECALCIFEROL (VITAMIN D3) * Take 1 capsule by mouth once * LEVOTHYROXINE 112 MCG TABLET Take 1 tablet by mouth once d* FREESTYLE NATALY 14 DAY SENSOR* 1 Each every 2 weeks. FREESTYLE NATALY 14 DAY READER 1 Each every 2 weeks. LANTUS SOLOSTAR U-100 INSULIN* Inject 24 Units subcutaneousl* FERROUS SULFATE 325 MG (65 MG* Take 1 tablet by mouth daily * CARVEDILOL 6.25 MG TABLET Take 1 tablet by mouth twice * BLOOD GLUCOSE TEST STRIPS Test blood sugar(s) 3 times d* LANCETS Test blood sugar(s) 3 times d* ALCOHOL SWABS Will use 3 times daily with p* FENOFIBRATE NANOCRYSTALLIZED * Take 1 tablet by mouth as nee* ASPIRIN 81 MG TABLET,DELAYED * Take 1 tablet by mouth once d* AMLODIPINE 10 MG TABLET Take 1 tablet by mouth once d* OXYBUTYNIN CHLORIDE 5 MG TABL* Take 1 tablet by mouth three * MULTIVITAMIN TABLET Take 1 tablet by mouth once d* GABAPENTIN 600 MG TABLET Take 1 tablet by mouth twice * FLUTICASONE PROPIONATE 50 MCG* Use 2 Sprays in each nostril * ERYTHROMYCIN 5 MG/GRAM (0.5 %* Use 1 application in both eye* DICLOFENAC 1 % TOPICAL GEL Apply 2 g to affected area on* NITROGLYCERIN 0.4 MG SUBLINGU* DISSOLVE ONE TABLET UNDER/ON * SALINE MIST 0.65 % NASAL SPRA* Use 1 [place] in the nose as ne* TICAGRELOR 90 MG TABLET Take 1 tablet by mouth twice * ARIPIPRAZOLE ER 400 MG SUSPEN* Inject 400 mg intramuscularly* ALBUTEROL SULFATE HFA 90 MCG/* Inhale 2 Puffs as instructed * COMPOUNDED PRESCRIPTION UCare Pen Needle 31G x 8MM 5/* COMPOUNDED PRESCRIPTION Prime GLUCOSE METER TESTING* PEN NEEDLE, DIABETIC 31 GAUGE* USE TWICE DAILY FOR INSULIN* Problem List As Of Date 08/16/2020 Noted Resolved Lumbago [M54.5] 01/09/2005 04/14/2020 Nonallopathic lesion of thoracic region, not el*01/09/2005 02/08/2016 Nonallopathic Lesion of Lumbar Region, not Else*01/09/2005 04/13/2009 IDIOPATHIC SCOLIOSIS [M41.20] 01/09/2005 Sprain of lumbar region [S33.5XXA] 02/13/2005 02/08/2016 Unspecified schizophrenia, unspecified conditio* 08/31/2013 Bipolar I disorder, most recent episode (or cur* 08/31/2013 Paroxysmal atrial fibrillation (HCC) [I48.0] ESOPHAGEAL REFLUX [K21.9] LUMBOSACRAL SPONDYLOSIS [M47.817] 01/02/2006 SPINAL STENOSIS-LUMBAR [M48.061] 01/02/2006 DISC DIS NEC/NOS-LUMBAR [M51.9] 01/02/2006 Other symptoms referable to back [M53.80] 01/02/2006 02/08/2016 SPONDYLOLISTHESIS [Q76.2] 01/02/2006 Pain in joint, pelvic region and thigh [M25.559]01/02/2006 02/08/2016 CERVICAL SPONDYLOSIS [M47.812] 02/10/2006 Hyperlipidemia [E78.5] 03/11/2006 Osteoarthritis [M19.90] 04/07/2007 Pain in joint of right shoulder [M25.511] 06/12/2007 PSORIASIS [L40.8] 06/12/2007 Contact Dermatitis and Other Eczema, due to Uns*06/12/2007 04/13/2009 XEROSIS///SEBACEOUS GLAND DIS NEC [L73.8] 06/12/2007 11/11/2012 Unspecified pruritic disorder [L29.9] 06/12/2007 11/11/2012 (more content not included)... [facility] 08-16-2020 Note HNO ID: [id number] Author: Gela Moreno Service: ? Author Type: ? Type: Progress Notes Filed: 08/16/2020 9:50 AM Note Text: POPULATION HEALTH NAVIGATION OUTREACH Action/FYI Spoke w patient and scheduled MEGHANN Contact made with patient or family member? YES Pt identified by name and : YES Outreach Outcome/Action Spoke to patient or caregiver: Patient scheduled in Specialty Reason for Outreach Care Gap or Scheduling/Wellness visits Payer: Payor: SHELIA [employer] / Plan: [employer] HMO / Product Type: HMO / Care Gap Reviewed:: Diabetic Eye Exam Reminder: Reminder note to check Health Maintenance for items below Health Maintenance items due: SHINGRIX VACCINE(2 of 3) due on 05/17/2010 ADVANCE DIRECTIVE DISCUSSION Never done DILATED RETINAL EXAM due on 01/28/2019 DEPRESSION SCREENING due on 08/14/2019 COLORECTAL CANCER SCREENING due on 10/06/2019 HBA1C due on 12/10/2019 HEMOGLOBIN/HEMATOCRIT due on 02/16/2020 DIABETIC FOOT EXAM due on 02/25/2020 LDL CHOLESTEROL due on 05/20/2020 COVID-19 VACCINE(2 - Pfizer 2-dose series) due on 06/24/2020 Advanced Directives Completed: Have you ever planned for future healthcare decisions with a power of health care attorney, living will, or advance directives? Referrals: Message Sent to Practice: NO Navigation Signature: Gela Moreno August 16, 2020 9:50 AM [facility] 07-13-2020 Note HNO ID: [id number] Author: Patt Moreno Service: ? Author Type: ? Type: Progress Notes Filed: 07/13/2020 1:34 PM Note Text: POPULATION HEALTH NAVIGATION OUTREACH Action/FYI No answer, lvm to schedule Colonoscopy and Diab Eye Exam Contact made with patient or family member? NO Pt identified by name and : NO Outreach Outcome/Action Unable to reach patient: Left message Reason for Outreach Care Gap or Scheduling/Wellness visits Payer: Payor: [employer] AND BLUE SHIELD / Plan: [employer] HMO / Product Type: HMO / Care Gap Reviewed:: Colorectal Cancer Screening Diabetic Eye Exam Reminder: Reminder note to check Health Maintenance for items below Health Maintenance items due: SHINGRIX VACCINE(2 of 3) due on 05/17/2010 ADVANCE DIRECTIVE DISCUSSION Completed DILATED RETINAL EXAM due on 01/28/2019 DEPRESSION SCREENING due on 08/14/2019 COLORECTAL CANCER SCREENING due on 10/06/2019 HBA1C due on 12/10/2019 HEMOGLOBIN/HEMATOCRIT due on 02/16/2020 DIABETIC FOOT EXAM due on 02/25/2020 LDL CHOLESTEROL due on 05/20/2020 COVID-19 VACCINE(2 - Pfizer 2-dose series) due on 06/24/2020 Advanced Directives Completed: Have you ever planned for future healthcare decisions with a power of health care attorney, living will, or advance directives? Referrals: Message Sent to Practice: NO Navigation Signature: Patt Moreno July 13, 2020 1:33 PM [facility] 07-13-2020 Note Patient Outreach (SHAVON TNAV) RENATO NOONAN ([id number]) 1950 M Date Time Provider [facility] During your visit today, we recorded the following information about you: Patt Moreno 07/13/2020 1:34 PM Signed POPULATION HEALTH NAVIGATION OUTREACH Action/FYI No answer, lvm to schedule Colonoscopy and Diab Eye Exam Contact made with patient or family member? NO Pt identified by name and : NO Outreach Outcome/Action Unable to reach patient: Left message Reason for Outreach Care Gap or Scheduling/Wellness visits Payer: Payor: SHELIA [employer] AND BLUE [employer] / Plan: SHELIA COLL[employer]O HMO / Product Type: HMO / Care Gap Reviewed:: Colorectal Cancer Screening Diabetic Eye Exam Reminder: Reminder note to check Health Maintenance for items below Health Maintenance items due: SHINGRIX VACCINE(2 of 3) due on 05/17/2010 ADVANCE DIRECTIVE DISCUSSION Completed DILATED RETINAL EXAM due on 01/28/2019 DEPRESSION SCREENING due on 08/14/2019 COLORECTAL CANCER SCREENING due on 10/06/2019 HBA1C due on 12/10/2019 HEMOGLOBIN/HEMATOCRIT due on 02/16/2020 DIABETIC FOOT EXAM due on 02/25/2020 LDL CHOLESTEROL due on 05/20/2020 COVID-19 VACCINE(2 - Pfizer 2-dose series) due on 06/24/2020 Advanced Directives Completed: Have you ever planned for future healthcare decisions with a power of health care attorney, living will, or advance directives? Referrals: Message Sent to Practice: NO Navigation Signature: Patt Moreno July 13, 2020 1:33 PM Allergies As of Date: 07/13/2020 Noted Allergy Reaction CODEINE 08/21/2005 8 - GI Upset DOXYCYCLINE 08/22/2007 2 - Rash LIPITOR (ATORVASTATIN CALCIUM) 02/09/2014 14 - Other: See Comments Comments: CK elevation LISINOPRIL 09/12/2008 3 - Cough metals [Other] 02/20/2007 2 - Rash PENICILLINS 11/16/2004 Comments: as a child Date Reviewed: 07/07/2020 Reviewed by: Kristal Allen Ma - Fully Assessed Reason for Visit: Population Health Navigation Outreach [3910] Cmt: deferred care Prescriptions as of 07/13/2020 Sig: CHOLECALCIFEROL (VITAMIN D3) * Take 1 capsule by mouth once * LEVOTHYROXINE 112 MCG TABLET Take 1 tablet by mouth once d* FREESTYLE NATALY 14 DAY SENSOR* 1 Each every 2 weeks. FREESTYLE NATALY 14 DAY READER 1 Each every 2 weeks. LANTUS SOLOSTAR U-100 INSULIN* Inject 24 Units subcutaneousl* FERROUS SULFATE 325 MG (65 MG* Take 1 tablet by mouth daily * CARVEDILOL 6.25 MG TABLET Take 1 tablet by mouth twice * BLOOD GLUCOSE TEST STRIPS Test blood sugar(s) 3 times d* LANCETS Test blood sugar(s) 3 times d* ALCOHOL SWABS Will use 3 times daily with p* FENOFIBRATE NANOCRYSTALLIZED * Take 1 tablet by mouth as nee* ASPIRIN 81 MG TABLET,DELAYED * Take 1 tablet by mouth once d* SELENIUM SULFIDE 2.5 % LOTION SHAMPOO TWICE A WEEKS DIRE* AMLODIPINE 10 MG TABLET Take 1 tablet by mouth once d* OXYBUTYNIN CHLORIDE 5 MG TABL* Take 1 tablet by mouth three * MULTIVITAMIN TABLET Take 1 tablet by mouth once d* GABAPENTIN 600 MG TABLET Take 1 tablet by mouth twice * FLUTICASONE PROPIONATE 50 MCG* Use 2 Sprays in each nostril * ERYTHROMYCIN 5 MG/GRAM (0.5 %* Use 1 application in both eye* DICLOFENAC 1 % TOPICAL GEL Apply 2 g to affected area on* NITROGLYCERIN 0.4 MG SUBLINGU* DISSOLVE ONE TABLET UNDER/ON * SALINE MIST 0.65 % NASAL SPRA* Use 1 [place] in the nose as ne* TICAGRELOR 90 MG TABLET Take 1 tablet by mouth twice * ARIPIPRAZOLE ER 400 MG SUSPEN* Inject 400 mg intramuscularly* ALBUTEROL SULFATE HFA 90 MCG/* Inhale 2 Puffs as instructed * COMPOUNDED PRESCRIPTION UCare Pen Needle 31G x 8MM 5/* COMPOUNDED PRESCRIPTION Prime GLUCOSE METER TESTING* PEN NEEDLE, DIABETIC 31 GAUGE* USE TWICE DAILY FOR INSULIN* Problem List As Of Date 07/13/2020 Noted Resolved Lumbago [M54.5] 01/09/2005 04/14/2020 Nonallopathic lesion of thoracic region, not el*01/09/2005 02/08/2016 Nonallopathic Lesion of Lumbar Region, not Else*01/09/2005 04/13/2009 IDIOPATHIC SCOLIOSIS [M41.20] 01/09/2005 Sprain of lumbar region [S33.5XXA] 02/13/2005 02/08/2016 Unspecified schizophrenia, unspecified conditio* 08/31/2013 Bipolar I disorder, most recent episode (or cur* 08/31/2013 Paroxysmal atrial fibrillation (HCC) [I48.0] ESOPHAGEAL REFLUX [K21.9] LUMBOSACRAL SPONDYLOSIS [M47.817] 01/02/2006 SPINAL STENOSIS-LUMBAR [M48.061] 01/02/2006 DISC DIS NEC/NOS-LUMBAR [M51.9] 01/02/2006 Other symptoms referable to back [M53.80] 01/02/2006 02/08/2016 SPONDYLOLISTHESIS [Q76.2] 01/02/2006 Pain in joint, pelvic region and thigh [M25.559]01/02/2006 02/08/2016 CERVICAL SPONDYLOSIS [M47.812] 02/10/2006 Hyperlipidemia [E78.5] 03/11/2006 Osteoarthritis [M19.90] 04/07/2007 Pain in joint of right shoulder [M25.511] 06/12/2007 PSORIASIS [L40.8] 06/12/2007 Contact Dermatitis and Other Eczema, due to Uns*06/12/2007 04/13/2009 XEROSIS///SEBACEOUS GLAND DI (more content not included)... [facility] 07-07-2020 Note HNO ID: [id number] Author: Dannie Lee) Nura Service: ? Author Type: Nurse Practitioner Type: Progress Notes Filed: 07/07/2020 2:39 PM Note Text: Chief Complaint Patient presents with: Follow Up HPI Renato Noonan is a 69 year old male who presents here today for Above Complaints.. Here for diabetes follow up. Sister is present with him today. Discussing that they are looking to get him into a [facility]. Working with social working at counseling center for placement. Discussing some difficulty with sleep. Having hard time staying asleep. Using benadryl at night. Has not tried melatonin. Diabetes: Checking BG often. BG 170 this am fasting. Sister is saying that she is having a problem with checking patient's BG, having hard time getting enough blood. Some hypoglycemia. Has problems with telling me when and how often. Sister has been giving him his medications. Past medical history, appointments, medications, allergies reviewed. 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 - Complete rupture of rotator cuff 05/29 full thickness tear supraspinatus and subscapularis - Coronary artery disease involving [place] coronary artery of [place] heart with angina pectoris (HCC) - Diabetic neuropathy (HCC) - Esophageal reflux - Hypothyroidism - Internal hemorrhoids without mention of complication - Mixed hyperlipidemia Hyperlipidemia - STEMI (ST elevation myocardial infarction) (HCC) 11/2017 [facility], drug eluding stent placement - Unspecified essential hypertension Essential hypertension - Unspecified schizophrenia, unspecified condition Previous Surgical History PAST SURGICAL HISTORY Procedure Laterality Date - COLONOSCOP W/ OR W/O BRSH SPEC 04/13/2013 Colonoscopy - COLONOSCOPY 10/05/2018 - EGD W/O OR W/BRUSH/WASH EGD - [...] as a child Current Medications Current Outpatient Medications on File Prior to Visit Medication Sig - insulin glargine (LANTUS SOLOSTAR U-100 INSULIN) 100 unit/mL (3 mL) Inject 24 Units subcutaneously daily at bedtime. - ferrous sulfate 325 mg (65 mg iron) tablet Take 1 tablet by mouth daily with breakfast. - carvedilol (COREG) 6.25 mg tablet Take 1 tablet by mouth twice daily. - fenofibrate nanocrystallized (TRICOR) 145 mg tablet Take 1 tablet by mouth as needed. - aspirin, enteric coated (ASPIRIN, ENTERIC COATED) 81 mg EC tablet Take 1 tablet by mouth once daily. - amLODIPine (NORVASC) 10 mg tablet Take 1 tablet by mouth once daily. - oxybutynin (DITROPAN) 5 mg tablet Take 1 tablet by mouth three times daily. - multivitamin (DAILY-ERICA) tablet Take 1 tablet by mouth once daily. - Cholecalciferol, Vitamin D3, 25 mcg (1,000 unit) cap Take 1 capsule by mouth once daily. - gabapentin (NEURONTIN) 600 mg tablet Take 1 tablet by mouth twice daily for 180 days. - fluticasone (FLONASE) 50 mcg/actuation nasal spray Use 2 Sprays in each nostril once daily. Rinse mouth after use. - levothyroxine (SYNTHROID) 112 mcg tablet Take 1 tablet by mouth once daily. - erythromycin ophthalmic ointment Use 1 application in both eyes daily at bedtime. - diclofenac sodium (VOLTAREN) 1 % topical gel Apply 2 g to affected area once daily. - ticagrelor (BRILINTA) 90 mg tablet Take 1 tablet by mouth twice daily. - ARIPiprazole (ABILIFY MAINTENA) 400 mg sers Inject 400 mg intramuscularly every 4 weeks. Receives at counseling center per Dr. Flores/ conchis Pierce - albuterol HFA (VENTOLIN HFA) 90 mcg/actuation inhaler Inhale 2 Puffs as instructed every 4 hours as needed for Wheezing/Shortness of Breath. - blood sugar diagnostic (BLOOD GLUCOSE TEST) test strip Test blood sugar(s) 3 times daily. Dx: Type 2 DM - Uncontrolled E11.65 Insulin: Yes - Lancets lancets Test blood sugar(s) 3 times daily. Dx: Type 2 DM - Uncontrolled E11.65 Insulin: Yes - alcohol swabs (ALCOHOL PADS) Will use 3 times daily with prep for glucose testing - selenium sulfide 2.5 % lotn SHAMPOO TWICE A WEEKS DIRECTED - nitroglycerin sublingual (NIT (more content not included)... [facility] 06-13-2020 Note HNO ID: [id number] Author: Jeffrey Cartagena III Service: ? Author Type: Physician Type: Progress Notes Filed: 06/13/2020 2:46 PM Note Text: called patient at 1417 SUBJECTIVE: This is a 69 year old male that is here today for Chronic Medical Conditions. Sister is POA for Renato, who has alzheimers disease. He does not take his insulin regularly and does not check his home glucose very often. He has been recently discharged from the hospital. Doctors at the hospital discontinued his toes and switched him from Basaglar to Lantus 22 units daily. At 1:30 PM on 06/13 his blood sugar was 385. The patient sister is asking what dose of insulin should be used to treat him. Chart review shows that the patient is type II diabetic. Sister states that he has lost a lot of weight since he has been in the hospital and his appetite is less. He used to regularly overeat. Now he drinks a lot of liquids including diet pop and water. He has never had a blood sugar that has been below 100. Usually his blood sugars are 250-400. Apparently he has never had his diabetes treated with oral medication. Chart review shows his GFR 33 in August, 1. diabetes mellitus--HbA1c 8.1 in August 2019. 2. PAST MEDICAL HISTORY Diagnosis Date - Acute gout 04/13/2009 Uric acid level 9.7 - Atrial fibrillation ([facility]) - Backache, unspecified - Bipolar I disorder, most recent episode (or current) unspecified - Closed traumatic brain injury ([facility]) Reports. - Complete rupture of rotator cuff 05/29 full thickness tear supraspinatus and subscapularis - Coronary artery disease involving [place] coronary artery of [place] heart with angina pectoris ([facility]) - Diabetic neuropathy ([facility]) - Esophageal reflux - Hypothyroidism - Internal hemorrhoids without mention of complication - Mixed hyperlipidemia Hyperlipidemia - STEMI (ST elevation myocardial infarction) ([facility]) 11/2017 [facility], drug eluding stent placement - Unspecified essential hypertension Essential hypertension - Unspecified schizophrenia, unspecified condition Current Outpatient Medications on File Prior to Visit Medication Sig - ferrous sulfate 325 mg (65 mg iron) tablet Take 1 tablet by mouth daily with breakfast. - carvedilol (COREG) 6.25 mg tablet Take 1 tablet by mouth twice daily. - blood sugar diagnostic (BLOOD GLUCOSE TEST) test strip Test blood sugar(s) 3 times daily. Dx: Type 2 DM - Uncontrolled E11.65 Insulin: Yes - Lancets lancets Test blood sugar(s) 3 times daily. Dx: Type 2 DM - Uncontrolled E11.65 Insulin: Yes - alcohol swabs (ALCOHOL PADS) Will use 3 times daily with prep for glucose testing - fenofibrate nanocrystallized (TRICOR) 145 mg tablet Take 1 tablet by mouth as needed. - aspirin, enteric coated (ASPIRIN, ENTERIC COATED) 81 mg EC tablet Take 1 tablet by mouth once daily. - selenium sulfide 2.5 % lotn SHAMPOO TWICE A WEEKS DIRECTED - amLODIPine (NORVASC) 10 mg tablet Take 1 tablet by mouth once daily. - oxybutynin (DITROPAN) 5 mg tablet Take 1 tablet by mouth three times daily. - multivitamin (DAILY-ERICA) tablet Take 1 tablet by mouth once daily. - Cholecalciferol, Vitamin D3, 25 mcg (1,000 unit) cap Take 1 capsule by mouth once daily. - gabapentin (NEURONTIN) 600 mg tablet Take 1 tablet by mouth twice daily for 180 days. - fluticasone (FLONASE) 50 mcg/actuation nasal spray Use 2 Sprays in each nostril once daily. Rinse mouth after use. - liraglutide (VICTOZA) 0.6 mg/ 0.1 ml subcutaneous pen injector Inject 1.8 mg subcutaneously once daily. - levothyroxine (SYNTHROID) 112 mcg tablet Take 1 tablet by mouth once daily. - erythromycin ophthalmic ointment Use 1 application in both eyes daily at bedtime. - BASAGLAR KWIKPEN U-100 INSULIN 100 unit/mL (3 mL) Inject 45 Units subcutaneously once daily. - diclofenac sodium (VOLTAREN) 1 % topical gel Apply 2 g to affected area once daily. - nitroglycerin sublingual (NITROSTAT) 0.4 mg SL tablet DISSOLVE ONE TABLET UNDER/ON THE TONGUE NEEDED FOR CHEST PAIN, IF NO RELIEF CALL 911 - sodium chloride (SALINE MIST) 0.65 % nasal spray Use 1 [place] in the nose as needed. - ticagrelor (BRILINTA) 90 mg tablet Take 1 tablet by mouth twice daily. - ARIPiprazole (ABILIFY MAINTENA) 400 mg sers Inject 400 mg intramuscularly every 4 weeks. Receives at counseling center per Dr. Flores/ conchis Pierce - albuterol HFA (VENTOLIN HFA) 90 mcg/actuation inhaler Inhale 2 Puffs as instructed every 4 hours as needed for Wheezing/Shortness of Breath. - COMPOUNDED PRESCRIPTION [employer]Care Pen Needle 31G x 8MM 08/06 . Use twice daily for insulin administration. E11.8 - COMPOUNDED PRESCRIPTION Prime GLUCOSE METER TESTING TWICE DAILY DX E11.9. INSULIN YES. - Insulin [place], Disposable, 31 gauge x 1/4 ndle USE TWICE DAILY FOR INSULIN ADMINISTRATION No current facility-administered medications on file prior to visit. FAMILY HISTORY Problem Relation Age of Onset - Thyroid Mother - Alcohol/Drug F (more content not included)... [facility] Summary Purpose Family History No Family History Records FoundNo Family History Records FoundNo Family History Records FoundNo Family History Records Found Advance Directives No Advanced Directives Records FoundNo Advanced Directives Records FoundNo Advanced Directives Records FoundNo Advanced Directives Records Found Additional Source Comments (unrecognized sect ion and content) No Status Records FoundNo Status Records FoundNo Status Records FoundNo Status Records Found INFORMATION SOURCE (unrecogn ized section and content) DATE CREATED AUTHOR AUTHOR'S ORGANIZ ATION 09/15/2017 [facility] DATE CREATED AUTHOR AUTHOR'S ORGANIZ ATION 04/14/2019 [facility] DATE CREATED AUTHOR AUTHOR'S ORGANIZ ATION 05/16/2021 [facility] FOR RECORDS PERTAINING TO PATIENTS WHO ARE OR HAVE BEEN ENROLLED IN A CHEMICAL DEPENDENCY/SUBSTANCEABUSE PROGRAM, SOME INFORMATION MAY BE OMITTED. This clinical summary was aggregated from multiple sources. Caution should be exercised in using it in the provision of clinical care. This summary normalizes information from multiple sources, and as a consequence, information in this document may materially change the coding, format and clinical context of patient data. In addition, data may be omitted in some cases. CLINICAL DECISIONS SHOULD BE BASED ON THE PRIMARY CLINICAL RECORDS. [facility]. provides no warranty or guarantee of the accuracy or completeness of information in this document.
--- NOTE | 2023-03-24 13:46 | HP.PCM.HOS_ITS ---
[facility] - General General Date of Admission: 03/24/23 Date of Service: 03/24/23 Chief Complaint: Shortness of breath HPI Narrative RENATO NOONAN, is a 72 M with past medical history of HFrEF with pacemaker, bipolar disorder, chronic kidney disease, type 2 diabetes, hypertension, hypoxia, osteoarthritis, schizoaffective disorder, paroxysmal A-fib, was brought to the emergency department for worsening shortness of breath and hypoxia detected on b edside testing. Patient is alert and oriented to time and place but is a poor historian. Notes that he has been feeling sick for the last 2 days, especially with cough and difficulty breathing. Denies any fevers. Does not remember taking his medications. Prior admission He was previously admitted on 08/27/2022 with similar concerns. His oxygen was 70% at the time of admission chest x-ray showed pulmonary interstitial prominence and BNP was 647, he was started on IV Lasix twice daily and required BiPAP in the ED. Echo showed moderate concentric left ventricular hypertrophy with EF of 55% and PASP of 37. With aggresive diuresis, his condition improved. He was started on Lasix 20 mg daily at the time of discharge. His weight at the time of discharge was 98.29 kg Today, At the time of presentation his hemoglobin was 11.0, WBC 12.9 platelet count 298 sodium 130, potassium 4.5, creatinine 3.2 with baseline 3.24 BNP 815.5. RSV PCR positive, COVID-negative. Blood cultures were sent. On chest x-ray left-sided dual-chamber pacemaker with in stable position, no focal infiltrate seen, mild atelectatic changes present. [facility] Medical History Accidental acetaminophen overdose Acute kidney injury Anxiety Arthritis Atherosclerotic heart disease of [place] coronary artery without angina pectoris Back problem Bipolar disorder Cataracts, bilateral Chronic kidney disease (CKD) stage G3b/A2, moderately decreased glomerular filtration rate (GFR) between 30-44 mL/min/1.73 square meter and albuminuria creatinine ratio between 30-299 mg/g Complete heart block Debility Decubitus ulcer of left buttock, stage 3 Depression Diabetes mellitus, type II Essential hypertension Falls Gout Headache Heart failure History of ST elevation myocardial infarction (STEMI) (11/19/17) Hyperlipidemia Hypoxia Insomnia Kidney disease Neuropathy Osteoarthritis Paroxysmal atrial fibrillation Partial small bowel obstruction Recurrent UTI Schizoaffective disorder Seasonal allergies Sepsis Syncope Traumatic brain injury Home Medications multivitamin 1 tab PO DAILY HEALTH MAINTENANCE 09/07/16 [History Last Taken 12/10/21] aspirin 81 mg tablet,delayed release 81 mg PO QDAY HEART HEALTH 02/27/17 [History Last Taken 12/10/21] nitroglycerin 0.4 mg sublingual tablet (Nitrostat) 0.4 mg sublingual Q5M PRN C HEST PAIN 02/27/17 [History Last Taken 12/29/18] amlodipine 10 mg tablet 10 mg PO DAILY BLOOD PRESSURE 02/03/19 [History Last Taken 12/10/21] cholecalciferol (vitamin D3) 25 mcg (1,000 unit) capsule 1,000 unit PO DAILY SUPPLEMENT 02/03/19 [History Last Taken 12/10/21] carvedilol 6.25 mg tablet 12.5 mg PO BID HEART 03/25/20 [History Last Taken 12/10/21] levothyroxine 112 mcg tablet 112 mcg PO DAILY THYROID 09/23/20 [History Last Taken 12/10/21] paliperidone palmitate 234 mg/1.5 mL intramuscular syringe (Invega Sustenna) 234 mg IM Q28D SCHIZOPHRENIA 01/05/21 [History Last Taken 11/29/21] trazodone 50 mg tablet 50 mg PO QHS INSOMNIA 01/05/21 [History Last Taken 12/09/21] fenofibrate micronized 200 mg capsule 200 mg PO DAILY CHOLESTEROL 03/01/21 [History Last Taken 12/10/21] acetaminophen 500 mg tablet 1,000 mg PO TID PAIN 12/10/21 [History Last Taken 12/10/21] albuterol sulfate 90 mcg/actuation aerosol inhaler (Ventolin HFA) 2 puff inhalation Q4H PRN SHORTNESS OF BREATH 12/10/21 [History Last Taken 12/10/21] calcium polycarbophil 625 mg tablet (Fiber-Tabs) 625 mg PO DAILY CONSTIPATION 0 12/10/21 [History Last Taken 12/10/21] lamotrigine 100 mg tablet 100 mg PO DAILY MOOD 12/10/21 [History Last Taken 12/10/21] loratadine 10 mg tablet 10 mg PO DAILY RASH 12/10/21 [History Last Taken ] oxcarbazepine 150 mg tablet 150 mg PO BID BIPOLAR DISORDER 12/10/21 [History Last Taken 12/10/21] risperidone 1 mg tablet 1.5 mg PO .HS SCHIZOPHRENIA 12/10/21 [History Last Taken 12/10/21] triamcinolone acetonide 0.1 % topical cream 1 applic topical Q12H PRN Rash 12/10/21 [History Last Taken 12/03/21] buspirone 5 mg tablet 5 mg PO BID ANXIETY 08/06/22 [History Last Taken Unknown] cetirizine 10 mg tablet 10 mg PO DAILY ALLERGIES/RASH 08/06/22 [History Last Taken Unknown] ferrous sulfate 325 mg (65 mg iron) tablet 325 mg PO DAILY SUPPLEMENT 08/06/22 [History Last Taken Unknown] guaifenesin 400 mg tablet 400 mg PO BID CONGESTION 08/06/22 [History Last Taken Unknown] sertraline 100 mg tablet (Zoloft) 100 mg PO DAILY ANXIETY/DEPRESSION 08/06/22 [History Last Taken Unknown] insulin glargine 100 unit/mL (3 mL) subcutaneous pen 38 unit subcut [facility] DIABETES 08/27/22 [History Last Taken Unknown] oxcarbazepine 300 mg tablet 300 mg PO BID BIPOLAR DISORDER 08/27/22 [History Last Taken Unknown] sennosides 8.6 mg tablet 8.6 mg PO Q12H CONSTIPATION 08/27/22 [History Last Taken Unknown] furosemide 20 mg tablet (Lasix) 20 mg PO DAILY #30 tabs 08/30/22 [Rx Last Taken Unknown] gabapentin 600 mg tablet 300 mg (1/2 x 600 mg) PO BID NERVE PAIN 30 days #60 tabs 08/30/22 [Rx Last Taken Unknown] insulin lispro 100 unit/mL subcutaneous pen (Humalog KwikPen (U-100) Insulin) See Protocol subcut ACHS #0 mL 08/30/22 [Rx Last Taken Unknown] escitalopram oxalate 5 mg tablet 5 mg PO DAILY depression 03/24/23 [History Last Taken Unknown] polyethylene glycol 3350 17 gram oral powder packet 17 g PO DAILY 03/24/23 [History Last Taken Unknown] risperidone 2 mg tablet 2 mg PO DAILY schizophrina 03/24/23 [History Last Taken 03/24/23 08:00 2 mg] tamsulosin 0.4 mg capsule 0.4 mg PO .HS BPH 01/01/24 [History Last Taken Unknown] Allergy/AdvReac Type Severity Reaction Status Date / Time atorvastatin [From Lipitor] Allergy Unknown Verified 12/16/22 09:39 Penicillins Allergy Unknown Verified 12/16/22 09:39 lisinopril AdvReac Unknown unknown Verified 12/16/22 09:39 codeine AdvReac Upset Verified 12/16/22 09:39 Stomach doxycycline AdvReac Other Verified 12/16/22 09:39 lycopene AdvReac Other Verified 12/16/22 09:39 nickel AdvReac Rash Verified 12/16/22 09:39 Family History Father Arthritis Bleeding disorder Heart disease Hypertension Mother Hypertension Surgical History History of coronary artery stent placement (11/19/17) History of permanent cardiac pacemaker placement (01/08/21) Social History household members: none housing: longterm Smoking Status: Never smoker alcohol intake: never substance use type: does not use caffeine: Yes ROS Review of Systems ROS Unobtainable: due to mental condition Vital Signs Vital Signs Vital Signs: 03/24/23 11:31 03/24/23 11:36 03/24/23 11:39 Temperature 99.4 F H 99.4 F H Temperature Source Temporal Temporal Pulse Rate 84 76 Respiratory Rate 25 H 23 H Respiratory Effort Short of Breath Labored Respiratory Depth Deep Respiratory Pattern Tachypnea Blood Pressure 129/65 H 120/66 Blood Pressure Mean 86 84 Pulse Ox 82 84 Oxygen Delivery Method Room Air Room Air Nasal Cannula Oxygen Flow Rate (L/min) 6 03/24/23 12:06 03/24/23 13:08 03/24/23 13:08 Temperature 98.4 F Temperature Source Temporal Pulse Rate 80 74 Respiratory Rate 16 26 H Respiratory Effort Respiratory Depth Respiratory Pattern Normal Blood Pressure 128/76 H Blood Pressure Mean 93 Pulse Ox 95 95 Oxygen Delivery Method Nasal Cannula Nasal Cannula Oxygen Flow Rate (L/min) 5 5 03/24/23 13:36 Temperature Temperature Source Pulse Rate 80 Respiratory Rate 22 H Respiratory Effort Respiratory Depth Respiratory Pattern Blood Pressure 105/68 Blood Pressure Mean 80 Pulse Ox 95 Oxygen Delivery Method Nasal Cannula Oxygen Flow Rate (L/min) Weight Weight: 194 lb 14.4 oz Body Mass Index (BMI) 30.5 Physical Exam HEENT normocephalic Neck no lymphadenopathy Resp Resp Narrative: Bilateral coarse crepitations present Auscultation: rales bilateral GI normal to inspection, nondistended, normoactive bowel sounds Extremity normal to inspection Extremity Narrative: No pedal edema Neuro oriented x3 Results Lab / Micro Data 03/24/23 11:41 03/24/23 11:41 Labs: Laboratory Results - last 24 hr 03/24/23 11:41: WBC 12.9 H, RBC 3.76 L, Hgb 11.0 L, Hct 33.9 L, MCV 90.2, MCH 29.3, MCHC 32.4, RDW Std Deviation 47.5 H, RDW Coeff of Shashank 14.3, Plt Count 298, MPV 10.1, Immature Gran % (Auto) 0.300, Neut % (Auto) 83.8 H, Lymph % (Auto) 4.6 L, [place] % (Auto) 10.5 H, Eos % (Auto) 0.5, Baso % (Auto) 0.3, Absolute Neuts (auto) 10.8 H, Absolute Lymphs (auto) 0.59 L, Nucleated RBC % 0, Differential Comment SCANNED, Sodium 130 L, Potassium 4.5, Chloride 98, Carbon Dioxide 25.0, Anion Gap 7, BUN 45 H, Creatinine 3.26 H, Estim Creat Clear Calc 18.59, Est GFR (MDRD) Af Amer 24 L, Est GFR (MDRD) Non-Af 20 L, BUN/Creatinine Ratio 13.8, Glucose 155 H, Lactic Acid 1.2, Calcium 9.3, Troponin I High Sens 16, B- Natriuretic Peptide 815.5 H Micro: Microbiology 03/24/23 11:41 Nasal Secretion SARS-CoV-2 & FLU Antigen (Rapid) - Final 03/24/23 11:41 Mucosa - Nose RSV RNA Qualitative (PCR) - Final RSV Imagaing Radiology Impression Chest X-Ray 03/24/23 11:55 IMPRESSION: Hypoventilatory and mild atelectatic changes. Electronically Signed: Nicholas Molina MD at 12:23 EST , Assessment & Plan Assessment/Plan (1) Hypoxia: PLAN: Plan Renato Ureña 72-year-old gentleman was brought to the ED for concerns of progressive shortness of breath. He has an extensive past medical history and is tested positive for RSV infection. The likely reason for his acute on chronic respiratory failure is the infection and there are concerns of underlying cardiac dysfunction and ADHF. On examination he is not volume overloaded, but his BNP is elevated even higher than his prior admission. His body weight is lower than his dry weight at the time of prior discharge two months back. 1. Acute on chronic respiratory failure: RSV pneumonia, with suspected ADHF -Continue oxygen support to target saturation 92 to 94% -DuoNeb nebulization every 6 hours -IV Lasix 40 mg once, will reevaluate clinical status and give the second dose. -Echocardiogram to evaluate ejection fraction -Pacemaker interrogation 2. Coronary artery disease s/p PCI October 2017 LAURE to mid LAD: Echocardiogram as above 3. Hypertension well-controlled at present, continue home medications 4. Type 2 diabetes continue long-acting insulin, start sliding scale for correctional insulin only 5. Hypothyroidism: Continue Synthroid, serum TSH tomorrow morning 6. Schizoaffective disorder: Continue home medications 7. CKD: Creatinine is at baseline, continue daily monitoring. 8. HTN: continue amlodipine, close monitoring of his blood pressure Charges/Coding Visit Charges Inpatient E&M: 41844 Init Hosp L2
--- OUTSIDE RECORDS SUMMARY | 2023-03-24 14:13 | XMS RPT_ITS | CCD ---
Author Name Unknown Address [address] [place] [address] Organization [facility] Care Team Providers Care Steel Plate Caulker Name Role Phone SULEMA REID Unavailable Unavailable Johnie Flores Unavailable Unavailable Johnie Flores Unavailable Unavailable SULEMA REID Unavailable Unavailable SULEMA REID Unavailable Unavailable Johnie Flores Unavailable Unavailable SULEMA REID E Unavailable Unavailable JOHNIE FLORES Unavailable Unavailable Scarlett Wharton LPN Unavailable Unavailable Allergies Allergy Classification Reported Allergen(s) Allergy Type Date of Onset Reaction(s) Facility (2 sources) atorvastatin; Translations: [ATORVASTATIN CALCIUM] Drug Allergy 4 [facility] Repository (3 sources) codeine; Translations: [CODEINE] Drug Allergy 6 [facility] Repository (2 sources) doxycycline; Translations: [DOXYCYCLINE] Drug Allergy 8 [facility] Repository (3 sources) lisinopril; Translations: [LISINOPRIL] Drug Allergy 9 [facility] Repository (2 sources) Penicillins; Translations: [PENICILLINS] Propensity to adverse reactions (disorder) 5 [facility] Repository (2 sources) OTHER; Translations: [OTHER] Propensity to adverse reactions (disorder) 7 [facility] Repository (1 source) atorvastatin Drug Allergy 7 [facility] Work Phone: (1 source) Doxycycline Drug Allergy 7 [facility] Work Phone: (1 source) Penicillins (Antibiotic) drug allergy 10-23-201 7 [facility] Work Phone: (1 source) METALS; Translations: [METALS] allergy to substance [facility] Work Phone: Medications Completed/Discontinued Medications Medication Drug Class(es) Dates Sig (Normalized) Sig (Original) allopurinol 300 mg oral tablet (1 source) Xanthine Oxidase Inhibitor ALLOPURINOL 300 MG TABS qd ALLOPURINOL [id number] Scarlett Wharton LPN amLODIPine 10 mg oral tablet (1 source) Dihydropyridine Calcium Channel [place] AMLODIPINE BESYLATE 10 MG TABS qd AMLODIPINE BESYLATE [id number] Scarlett Wharton LPN aspirin 81 mg oral tablet (1 source) Platelet Aggregation Inhibitor, Nonsteroidal Anti-inflammatory Drug ASPIRIN 81 MG TAB S qd ASPIRIN [id number] Scarlett Wharton LPN betamethasone 0.5 mg/ml topical lotion (1 source) Corticosteroid BETAMETHASONE DIPROPIONATE 0.05 % LOTN bid BETAMETHASONE DIPROPIONATE [id number] Scarlett Wharton LPN CLOTRIMAZOLE-BETAMET HASONE CREA (1 source) Azole Antifungal, Corticosteroid CLOTRIMAZOLE-BETAMET HASONE CREA apply to rash bid CLOTRIMAZOLE-BETAMET HASONE CREA [id number] Scarlett Wharton LPN BLOOD GLUCOSE MONITORING SUPPL (1 source) ACCU-CHEK MICHAEL LUPILLO BLOOD GLUCOSE MONITORING SUPPL 17141754152 Scarlett Wharton LPN clindamycin 10 mg/ml medicated pad (1 source) Lincosamide Antibacterial CLEOCIN-T 1 % SWAB use twice daily prn CLINDAMYCIN PHOSPHATE [id number] Scarlett Wharton LPN diclofenac sodium 0.01 mg/mg topical gel (1 source) Nonsteroidal Anti-inflammatory Drug VOLTAREN 1 % GEL apply tid DICLOFENAC SODIUM [id number] Scarlett Wharton LPN 0.5 ml dulaglutide 1.5 mg/ml auto-injector (1 source) GLP-1 Receptor Agonist TRULICITY 0.75 MG/0.5ML SOPN 1 x q wk DULAGLUTIDE 70525255137 Scarlett Wharton LPN esomeprazole 20 mg delayed release oral capsule (1 source) Proton Pump Inhibitor ESOMEPRAZO LE MAGNESIUM 20 MG CPDR qd ESOMEPRAZOLE MAGNESIUM 50380341686 Scarlett Armstrong Dio [employer]CHNICIAN ferrous sulfate 325 mg delayed release oral tablet (1 source) FERROUS SULFATE 325 (65 Fe) MG TBEC qd FERROUS SULFATE 33210218385 Scarlett Armstrong [employer] TECHNICIAN flecainide acetate 150 mg oral tablet (1 source) Antiarrhythmic FLECAINIDE ACETA TE 150 MG TABS qd FLECAINIDE ACETATE 55347735301 Scarlett Armstrong [employer] TECHNICIAN fluticasone propionate 0.05 mg/actuat metered dose nasal spray (1 source) Corticosteroid FLUTICASONE PROPIONATE 50 MCG/ACT SUSP 2 sp each nostril q d FLUTICASONE PROPIONATE 79411526035 Scarlett Armstrong [employer] TECHNICIAN gabapentin 600 mg oral tablet (2 sources) Anti-epileptic Agent GABAPENTIN 300 MG CAPS qd GABAPENTIN 17262783785 Scarlett Armstrong [employer] TECHNICIAN Problems Active Problems Problem Classification Problem Date [...] Encounter Type Care Provider Facility Start: 12-22-2017 [facility] Facility :[facility] Start: 04-22-2017 End: 04-22-2017 Ambulatory [facility] Facility:[facility] Plan of Treatment Date Care Activity Detail Author Start: 01-23-2017 End: 01-23-2017 Appointment Appointment [facility] Work Phone: Payers Date Payer Category Payer Policy ID Medicare [id number] Medical Equipment Procedure Code Equipment Code Equipment Original Text Equi pment Identifier Dates INSULIN PEN NEEDLE Clinical Notes 06-13-2020 to 05-15-2021 Note Date & Type Note Facility 05-15-2021 Note HNO ID: [id number] Author: Irma Hernández Population Health Navigator Service: ? Author Type: ? Type: Progress Notes Filed: 05/15/2021 3:22 PM Note Text: POPULATION HEALTH NAVIGATION OUTREACH Action/FYI Called patient to schedule medicare wellness visit and care gaps. Pt identified by name and : NO Outreach Outcome/Action Unable to reach patient: Left message Reason for Outreach HCC or suspected condition Payer: Payor: [employer] / Plan: [employer]s HMO / Product Type: HMO / Care [...] Health Navigator May 15, 2021 3:20 PM [facility] 05-15-2021 Note Patient Outreach (NE TNAV) RENATO NOONAN ([id number]) 1950 M Date Time Provider Department 05/15/21 [...] Outreach HCC or suspected condition Payer: Payor: [employer] / Plan: [employer] HMO / Product Type: HMO / Care [...] MIST) 0.65 % nasal spray Use 1 Jamison in the nose as needed. - ticagrelor [...] DAILY DX E11.9. INSULIN YES. - Insulin [place], Disposable, 31 gauge x 1/4 ndle USE TWICE DAILY FOR INSULIN ADMINISTRATION Problem List As Of Date 05/15/2021 Noted Resolved Lumbago [M54.50] 01/09/2005 04/14/2020 Nonallopathic lesion of thoracic region, not el*01/09/2005 02/08/2016 Nonallopathic Lesion of Lumbar Region, not Else*01/09/2005 04/13/2009 IDIOPATHIC SCOLIOSIS [M41.20] 01/09/2005 Sprain of lumbar reg (more content not included)... [facility] 11-24-2020 Note Patient Outreach (NE TNAV) RENATO NOONAN ([id number]) 1950 M Date Time Provider Department 11/24/20 HANNA GONZALEZ ([facility]) NETNACarlo During your visit today, we recorded the following information about you: Hanna Gonzalez [facility] 11/24/2020 9:57 AM Signed POPULATION HEALTH NAVIGATION OUTREACH Action/ Care Gap: Colorectal Cancer Screening Reached out to patient to schedule Colonoscopy LMTCB, no my chart Contact made with patient or family member? NO Pt identified by name and : NO Outreach Outcome/Action Unable to reach patient: Left message Reason for Outreach Care Gap or Scheduling/Wellness visits Payer: Payor: [employer] / Plan: ReelBig HMO / Product Type: HMO / Care [...] future healthcare decisions with a power of document review attorney, living will, or advance directives? Referrals: Message Sent to Practice: Navigation Signature: Hanna Gonzalez [facility] November 24, 2020 9:54 AM Allergies [...] MIST) 0.65 % nasal spray Use 1 Jamison in the nose as needed. - ticagrelor [...] DAILY DX E11.9. INSULIN YES. - Insulin [place], Disposable, 31 gauge x 1/4 ndle USE TWICE DAILY FOR INSULIN ADMINISTRATION Problem List As Of Date 11/24/2020 Noted Resolved Lumbago (more content not included)... [facility] 11-24-2020 Note HNO ID: [id number] Author: Hanna Gonzalez Pss Service: ? Author [...] Gap or Scheduling/Wellness visits Payer: Payor: SHELIA [employer] AND [employer] / Plan: SHELIA [employer]RAEME HMO / Product Type: HMO / Care [...] future healthcare decisions with a power of document review attorney, living will, or advance directives? Referrals: Message Sent to Practice: Navigation Signature: Hanna Gonzalez [facility] November 24, 2020 9:54 AM [facility] 10-11-2020 Note HNO ID: [id number] Author: Johnie Flores MD Service: ? Author [...] via EMS because he could not sleep. [facility] referred him to [facility]osp[facility] with unspecified dx. Sister are trying to get him into [facility]. Pt sister Em states he has [...] current) unspecified - Closed traumatic brain injury ([facility]) Reports. - Complete rupture of rotator cuff 05/29 full thickness tear supraspinatus and subscapularis - Coronary artery disease involving [place] coronary artery of [place] heart with angina pectoris ([facility]) - Diabetic neuropathy ([facility]) - Esophageal reflux - Hypothyroidism - Internal hemorrhoids without mention of complication - Mixed hyperlipidemia Hyperlipidemia - STEMI (ST elevation myocardial infarction) ([facility]) 11/2017 [facility], drug eluding stent placement - Unspecified essential hypertension Essential hypertension - Unspecified schizophrenia, unspecified condition Previous Surgical History PAST SURGICAL HISTORY Procedure Laterality Date [facility] Colon[facility] - COLONOSCOPY 10/05/2018 - [...] 2 weeks. - flash glucose scanning reader (Share Your Brain[employer]YLE NATALY 14 DAY READER) 1 Each every [...] - nitroglycerin sublingual (more content not included)... [facility] 09-26-2020 Note HNO ID: [id number] Author: Chase Levi APRN.[facility] Service: ? Author Type: Nurse Practitioner Type: [...] and subscapularis - Coronary artery disease involving [place] coronary artery of [place] heart with angina pectoris (HCC) - Diabetic neuropathy ([facility]) - Esophageal reflux - Hypothyroidism - Internal hemorrhoids without mention of complication - Mixed hyperlipidemia Hyperlipidemia - STEMI (ST elevation myocardial infarction) ([facility]) 11/2017 [facility], drug eluding stent placement - Unspecified [...] MIST) 0.65 % nasal spray Use 1 Jamison in the nose as needed. ticagrelor (BRILINTA) [...] TWICE DAILY DX E11.9. INSULIN YES. Insulin [place], Disposable, 31 gauge x 1/4 ndle USE TWICE DAILY FOR INSULIN ADMINISTRATION FAMILY HISTORY Problem Relation Age of Onset - Thyroid Mother - Alcohol/Drug Father Social History Tobacco Use - Smo (more content not included)... [facility] 08-16-2020 Note HNO ID: [id number] Author: Jefe Trimble MD Service: ? Author [...] Trimble MD August 16, 2020 1:59 PM [facility] 08-16-2020 Note Patient Outreach (SHAVON TNAV) RENATO NOONAN ([id number]) 1950 M Date Time Provider Department 08/16/20 [...] Care Gap or Scheduling/Wellness visits Payer: Payor: [employer] / Plan: ANTHGreenNote HMO / Product Type: HMO / Care [...] future healthcare decisions with a power of document review attorney, living will, or advance directives? Referrals: [...] MIST 0.65 % NASAL SPRA* Use 1 Jamison in the nose as ne* TICAGRELOR 90 [...] [L29.9] 06/12/2007 11/11/2012 (more content not included)... [facility] 08-16-2020 Note HNO ID: [id number] Author: Gela Moreno Service: ? Author Type: [...] Gap or Scheduling/Wellness visits Payer: Payor: SHELIA [employer] / Plan: ReelBig HMO / Product Type: HMO / Care [...] future healthcare decisions with a power of document review attorney, living will, or advance directives? Referrals: Message Sent to Practice: NO Navigation Signature: Gela Moreno August 16, 2020 9:50 AM [facility] 07-13-2020 Note HNO ID: [id number] Author: Patt Moreno Service: ? Author Type: [...] Care Gap or Scheduling/Wellness visits Payer: Payor: [employer] AND [employer] / Plan: AN[employer]Mix MEDIBLAirspan HMO / Product Type: HMO / Care [...] future healthcare decisions with a power of document review attorney, living will, or advance directives? Referrals: Message Sent to Practice: NO Navigation Signature: Patt Moreno July 13, 2020 1:33 PM [facility] 07-13-2020 Note Patient Outreach (SHAVON TNAV) RENATO NOONAN ([id number]) 1950 M Date Time Provider [facility] During your visit today, we [...] Gap or Scheduling/Wellness visits Payer: Payor: SHELIA [employer] AND [employer] / Plan: SHELIA COLLAZO HMO / Product [...] future healthcare decisions with a power of document review attorney, living will, or advance directives? Referrals: [...] MIST 0.65 % NASAL SPRA* Use 1 Jamison in the nose as ne* TICAGRELOR 90 [...] XEROSIS///SEBACEOUS GLAND DI (more content not included)... [facility] 07-07-2020 Note HNO ID: [id number] Author: Dannie Lee) Nura Service: ? Author Type: Nurse Practitioner Type: Progress Notes Filed: 07/07/2020 2:39 PM Note Text: Chief Complaint Patient presents with: Follow Up HPI Renato Noonan is a 69 year old male who presents here today for Above Complaints.. Here for diabetes follow up. Sister is present with him today. Discussing that they are looking to get him into a retirement. Working with social working at counseling center [...] and subscapularis - Coronary artery disease involving [place] coronary artery of [place] heart with angina pectoris (HCC) - Diabetic neuropathy (HCC) - Esophageal reflux - Hypothyroidism - Internal hemorrhoids without mention of complication - Mixed hyperlipidemia Hyperlipidemia - STEMI (ST elevation myocardial infarction) (HCC) 11/2017 [facility], drug eluding stent placement - Unspecified [...] nitroglycerin sublingual (NIT (more content not included)... [facility] 06-13-2020 Note HNO ID: [id number] Author: Jeffrey Cartagena III Service: ? Author [...] Uric acid level 9.7 - Atrial fibrillation ([facility]) - Backache, unspecified - Bipolar I disorder, most recent episode (or current) unspecified - Closed traumatic brain injury ([facility]) Reports. - Complete rupture of rotator cuff 05/29 full thickness tear supraspinatus and subscapularis - Coronary artery disease involving [place] coronary artery of [place] heart with angina pectoris ([facility]) - Diabetic neuropathy ([facility]) - Esophageal reflux - Hypothyroidism - Internal hemorrhoids without mention of complication - Mixed hyperlipidemia Hyperlipidemia - STEMI (ST elevation myocardial infarction) ([facility]) 11/2017 [facility], drug eluding stent placement - Unspecified [...] MIST) 0.65 % nasal spray Use 1 Jamison in the nose as needed. - ticagrelor [...] DAILY DX E11.9. INSULIN YES. - Insulin [place], Disposable, 31 gauge x 1/4 ndle USE TWICE DAILY FOR INSULIN ADMINISTRATION No current facility-administered medications on file prior to visit. FAMILY HISTORY Problem Relation Age of Onset - Thyroid Mother - Alcohol/Drug F (more content not included)... [facility] Summary Purpose Family History No Family [...] DATE CREATED AUTHOR AUTHOR'S ORGANIZ ATION 09/15/2017 [facility] DATE CREATED AUTHOR AUTHOR'S ORGANIZ ATION 04/14/2019 [facility] DATE CREATED AUTHOR AUTHOR'S ORGANIZ ATION 05/16/2021 [facility] FOR RECORDS PERTAINING TO PATIENTS WHO [...] BE BASED ON THE PRIMARY CLINICAL RECORDS. [facility] [employer] [facility]. provides no warranty or guarantee of the accuracy or completeness of information in this document.
--- NOTE | 2023-03-24 14:29 | ECHOD_ITS ---
Reason For Study: CHF Procedure This was a 2D Doppler, Color Flow transthoracic echocardiogram. The study was technically difficult. Exam performed portable in patient room. Left Ventricle Normal LV size. Mild concentric left ventricular hypertrophy. The left ventricular ejection fraction is 65 %. Unable to assess diastolic dysfunction due to arrhythmia. Right Ventricle Normal right ventricle. Atria The left atrium is severely enlarged. Normal right atrium. Mitral Valve Mild (1+) mitral valve insufficiency. Tricuspid Valve Trivial tricuspid valve insufficiency. Normal pulmonary artery pressure. Aortic Valve Trisinus/trileaflet aortic valve. Pulmonic Valve The pulmonic valve is not well visualized. Great Vessels Normal sized aortic root. Pericardium/Pleural No pericardial effusion. MMode/2D Measurements & Calculations LVIDd: 4.8 cm IVSd: 1.4 cm Ao root diam: 3.2 cm LVIDs: 3.3 cm LVPWd: 1.2 cm RVDd: 3.7 cm FS: 31.4 % LAV(MOD-bp): 65.6 ml LVAd ap4: 26.8 cm2 SV(MOD-sp4): 49.2 ml LAV(MOD-bp) Indexed: 33.1 ml/m2 LVLd ap4: 7.2 cm LAV(MOD-sp2): 65.9 ml EDV(MOD-sp4): 82.3 ml LAV(MOD-sp4): 64.0 ml EDV(sp4-el): 85.0 ml LVAs ap4: 16.0 cm2 LVLs ap4: 6.6 cm ESV(MOD-sp4): 33.1 ml ESV(sp4-el): 33.0 ml EF(MOD-sp4): 59.7 % EF(sp4-el): 61.2 % SV(sp4-el): 52.0 ml LA A4 area: 22.1 cm2 LA dimension(2D): 4.5 cm RA A4 area: 17.2 cm2 Doppler Measurements & Calculations MV E max kenna: 97.9 cm/sec Ao V2 max: 118.3 cm/sec LV V1 max: 88.8 cm/sec Ao max P.6 mmHg LV V1 max P.2 mmHg PA V2 max: 83.1 cm/sec TR max kenna: 231.0 cm/sec TR max P.3 mmHg ECHO/Echo Complete Interpretation Summary Mild concentric left ventricular hypertrophy. The left ventricular ejection fraction is 65 %. Unable to assess diastolic dysfunction due to arrhythmia. The left atrium is severely enlarged. Mild (1+) mitral valve insufficiency. Ordering Physician: Anival Rogers Referring Physician: NERY VOSS Performed By: Amy Woodard RDCS
--- OUTSIDE RECORDS SUMMARY | 2023-03-24 16:47 | XMS RPT_ITS | CCD ---
Author Name Unknown Address [address] [place] [address] Organization [facility] Care Team Providers Care Hospice Clinical Marketer Name Role Phone SULEMA REID Unavailable Unavailable Johnie Flores Unavailable Unavailable Johnie Flores Unavailable Unavailable SULEMA REID Unavailable Unavailable SULEMA REID Unavailable Unavailable Johnie Flores Unavailable Unavailable SULEMA REID E Unavailable Unavailable JOHNIE FLORES Unavailable Unavailable Scarlett Wharton LPN Unavailable Unavailable Allergies Allergy Classification Reported Allergen(s) Allergy Type Date of Onset Reaction(s) Facility (2 sources) atorvastatin; Translations: [ATORVASTATIN CALCIUM] Drug Allergy 4 [facility] Repository (3 sources) codeine; Translations: [CODEINE] Drug Allergy 6 [facility] Repository (2 sources) doxycycline; Translations: [DOXYCYCLINE] Drug Allergy 8 [facility] Repository (3 sources) lisinopril; Translations: [LISINOPRIL] Drug Allergy 9 [facility] Repository (2 sources) Penicillins; Translations: [PENICILLINS] Propensity to adverse reactions (disorder) 5 [facility] Repository (2 sources) OTHER; Translations: [OTHER] Propensity to adverse reactions (disorder) 7 [facility] Repository (1 source) atorvastatin Drug Allergy 7 [facility] Work Phone: (1 source) Doxycycline Drug Allergy 7 [facility] Work Phone: (1 source) Penicillins (Antibiotic) drug allergy 10-23-201 7 [facility] Work Phone: (1 source) METALS; Translations: [METALS] allergy to substance [facility] Work Phone: Medications Completed/Discontinued Medications Medication Drug Class(es) Dates Sig (Normalized) Sig (Original) allopurinol 300 mg oral tablet (1 source) Xanthine Oxidase Inhibitor ALLOPURINOL 300 MG TABS qd ALLOPURINOL [id number] Scarlett Wharton LPN amLODIPine 10 mg oral tablet (1 source) Dihydropyridine Calcium Channel Tulio AMLODIPINE BESYLATE 10 MG TABS qd AMLODIPINE BESYLATE [id number] Scarlett Wharton LPN aspirin 81 mg oral tablet (1 source) Platelet Aggregation Inhibitor, Nonsteroidal Anti-inflammatory Drug ASPIRIN 81 MG TAB S qd ASPIRIN [id number] Scarlett Wharton LPN betamethasone 0.5 mg/ml topical lotion (1 source) Corticosteroid BETAMETHASONE DIPROPIONATE 0.05 % LOTN bid BETAMETHASONE DIPROPIONATE [id number] Scarlett Wharton LPN CLOTRIMAZOLE-BETAMET HASONE CREA (1 source) Azole Antifungal, Corticosteroid CLOTRIMAZOLE-BETAMET HASONE CREA apply to rash bid CLOTRIMAZOLE-BETAMET HASONE CREA [id number] Scarlett Wharton LPN BLOOD GLUCOSE MONITORING SUPPL (1 source) ACCU-CHEK MICHAEL LUPILLO BLOOD GLUCOSE MONITORING SUPPL [id number] Scarlett Wharton LPN clindamycin 10 mg/ml medicated pad (1 source) Lincosamide Antibacterial CLEOCIN-T 1 % SWAB use twice daily prn CLINDAMYCIN PHOSPHATE [id number] Scarlett Wharton LPN diclofenac sodium 0.01 mg/mg topical gel (1 source) Nonsteroidal Anti-inflammatory Drug VOLTAREN 1 % GEL apply tid DICLOFENAC SODIUM [id number] Scarlett Wharton LPN 0.5 ml dulaglutide 1.5 mg/ml auto-injector (1 source) GLP-1 Receptor Agonist TRULICITY 0.75 MG/0.5ML SOPN 1 x q wk DULAGLUTIDE 09509383605 Scarlett Wharton LPN esomeprazole 20 mg delayed release oral capsule (1 source) Proton Pump Inhibitor ESOMEPRAZO LE MAGNESIUM 20 MG CPDR qd ESOMEPRAZOLE MAGNESIUM 78339742336 Scarlett Armstrong Dio CERTIFIED SURGICAL TECH/FIRST ASSISTANT ferrous sulfate 325 mg delayed release oral tablet (1 source) FERROUS SULFATE 325 (65 Fe) MG TBEC qd FERROUS SULFATE 15028756875 Scarlett Armstrong Dio CERTIFIED SURGICAL TECH/FIRST ASSISTANT flecainide acetate 150 mg oral tablet (1 source) Antiarrhythmic FLECAINIDE ACETA TE 150 MG TABS qd FLECAINIDE ACETATE [id number] Scarlett Armstrong Dio CERTIFIED SURGICAL TECH/FIRST ASSISTANT fluticasone propionate 0.05 mg/actuat metered dose nasal spray (1 source) Corticosteroid FLUTICASONE PROPIONATE 50 MCG/ACT SUSP 2 sp each nostril q d FLUTICASONE PROPIONATE [id number] Scarlett Armstrong Dio CERTIFIED SURGICAL TECH/FIRST ASSISTANT gabapentin 600 mg oral tablet (2 sources) Anti-epileptic Agent GABAPENTIN 300 MG CAPS qd GABAPENTIN [id number] Scarlett Armstrong Dio CERTIFIED SURGICAL TECH/FIRST ASSISTANT Problems Active Problems Problem Classification Problem Date [...] Encounter Type Care Provider Facility Start: 12-22-2017 [facility] Facility :[facility] Start: 04-22-2017 End: 04-22-2017 Ambulatory [facility] Facility:[facility] Plan of Treatment Date Care Activity Detail Author Start: 01-23-2017 End: 01-23-2017 Appointment Appointment Regino engel Work Phone: Payers Date Payer Category Payer Policy ID Medicare [id number] Medical Equipment Procedure Code Equipment Code Equipment Original Text Equi pment Identifier Dates INSULIN PEN NEEDLE Clinical Notes 06-13-2020 to 05-15-2021 Note Date & Type Note Facility 05-15-2021 Note HNO ID: [id number] Author: Irma Hernández Population Health Navigator Service: ? Author Type: ? Type: Progress Notes Filed: 05/15/2021 3:22 PM Note Text: POPULATION HEALTH NAVIGATION OUTREACH Action/FYI Called patient to schedule medicare wellness visit and care gaps. Pt identified by name and : NO Outreach Outcome/Action Unable to reach patient: Left message Reason for Outreach HCC or suspected condition Payer: Payor: Klique AND PT [employer] SHIELD / Plan: [employer] MEDIPT [employer] HMO / Product Type: HMO / Care [...] Health Navigator May 15, 2021 3:20 PM [facility] 05-15-2021 Note Patient Outreach (NE TNAV) RENATO NOONAN ([id number]) 1950 M Date Time Provider Department 05/15/21 [...] Outreach HCC or suspected condition Payer: Payor: Klique AND PT [employer] SHIELD / Plan: [employer] MEDIPT [employer] HMO / Product Type: HMO / Care [...] MIST) 0.65 % nasal spray Use 1 [place] in the nose as needed. - ticagrelor [...] DAILY DX E11.9. INSULIN YES. - Insulin Kodak, Disposable, 31 gauge x 1/4 ndle USE TWICE DAILY FOR INSULIN ADMINISTRATION Problem List As Of Date 05/15/2021 Noted Resolved Lumbago [M54.50] 01/09/2005 04/14/2020 Nonallopathic lesion of thoracic region, not el*01/09/2005 02/08/2016 Nonallopathic Lesion of Lumbar Region, not Else*01/09/2005 04/13/2009 IDIOPATHIC SCOLIOSIS [M41.20] 01/09/2005 Sprain of lumbar reg (more content not included)... [facility] 11-24-2020 Note Patient Outreach (NE TNAV) RENATO NOONAN ([id number]) 1950 M Date Time Provider Department 11/24/20 HANNA GONZALEZ ([facility]) NETNACarlo During your visit today, we recorded the following information about you: Hanna Gonzalez [facility] 11/24/2020 9:57 AM Signed POPULATION HEALTH NAVIGATION OUTREACH Action/ Care Gap: Colorectal Cancer Screening Reached out to patient to schedule Colonoscopy LMTCB, no my chart Contact made with patient or family member? NO Pt identified by name and : NO Outreach Outcome/Action Unable to reach patient: Left message Reason for Outreach Care Gap or Scheduling/Wellness visits Payer: Payor: [employer] / Plan: [employer] HMO / Product Type: HMO / Care [...] future healthcare decisions with a power of finance attorney, living will, or advance directives? Referrals: Message Sent to Practice: Navigation Signature: Hanna Gonzalez [facility] November 24, 2020 9:54 AM Allergies [...] MIST) 0.65 % nasal spray Use 1 [place] in the nose as needed. - ticagrelor [...] DAILY DX E11.9. INSULIN YES. - Insulin Kodak, Disposable, 31 gauge x 1/4 ndle USE TWICE DAILY FOR INSULIN ADMINISTRATION Problem List As Of Date 11/24/2020 Noted Resolved Lumbago (more content not included)... [facility] 11-24-2020 Note HNO ID: [id number] Author: Hanna Gonazlez Pss Service: ? Author Type: ? Type: [...] Gap or Scheduling/Wellness visits Payer: Payor: SHELIA [email or web address] / Plan: SHELIA ZarangaGRAEME HMO / Product Type: HMO / Care [...] future healthcare decisions with a power of finance attorney, living will, or advance directives? Referrals: Message Sent to Practice: Navigation Signature: Hanna Gonzalez [facility] November 24, 2020 9:54 AM [facility] 10-11-2020 Note HNO ID: [id number] Author: Johnie Flores MD Service: ? Author [...] via EMS because he could not sleep. [facility] referred him to [facility] with unspecified dx. Sister are trying to get him into [facility]. Pt sister Em states he has gone [...] current) unspecified - Closed traumatic brain injury ([facility]) Reports. 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 ([facility]) - Diabetic neuropathy ([facility]) - Esophageal reflux - Hypothyroidism - Internal hemorrhoids without mention of complication - Mixed hyperlipidemia Hyperlipidemia - STEMI (ST elevation myocardial infarction) ([facility]) 11/2017 [facility], drug eluding stent placement - Unspecified essential hypertension Essential hypertension - Unspecified schizophrenia, unspecified condition Previous Surgical History PAST SURGICAL HISTORY Procedure Laterality Date [facility] Colonoscopy - COLONOSCOPY 10/05/2018 [...] 2 weeks. - flash glucose scanning reader (Care at HandSTYLE NATALY 14 DAY READER) 1 Each every [...] - nitroglycerin sublingual (more content not included)... [facility] 09-26-2020 Note HNO ID: [id number] Author: Chase Levi APRN.[facility] Service: ? Author Type: Nurse [...] and subscapularis - Coronary artery disease involving [place] coronary artery of takot[place] heart with angina pectoris (HCC) - Diabetic neuropathy ([facility]) - Esophageal reflux - Hypothyroidism - Internal hemorrhoids without mention of complication - Mixed hyperlipidemia Hyperlipidemia - STEMI (ST elevation myocardial infarction) ([facility]) 11/2017 [facility], drug eluding stent placement - Unspecified [...] MIST) 0.65 % nasal spray Use 1 [place] in the nose as needed. ticagrelor (BRILINTA) [...] TWICE DAILY DX E11.9. INSULIN YES. Insulin Kodak, Disposable, 31 gauge x 1/4 ndle USE TWICE DAILY FOR INSULIN ADMINISTRATION FAMILY HISTORY Problem Relation Age of Onset - Thyroid Mother - Alcohol/Drug Father Social History Tobacco Use - Smo (more content not included)... [facility] 08-16-2020 Note HNO ID: [id number] Author: Jefe Trimble MD Service: ? Author [...] Trimble MD August 16, 2020 1:59 PM [facility] 08-16-2020 Note Patient Outreach (SHAVON TNAV) RENATO NOONAN ([id number]) 1950 M Date Time Provider Department 08/16/20 [...] Care Gap or Scheduling/Wellness visits Payer: Payor: Klique AND [employer] SHIELD / Plan: [employer] HMO / Product Type: HMO / Care [...] future healthcare decisions with a power of finance attorney, living will, or advance directives? Referrals: [...] MIST 0.65 % NASAL SPRA* Use 1 [place] in the nose as ne* TICAGRELOR 90 [...] [L29.9] 06/12/2007 11/11/2012 (more content not included)... [facility] 08-16-2020 Note HNO ID: [id number] Author: Gela Moreno Service: ? Author Type: [...] Gap or Scheduling/Wellness visits Payer: Payor: SHELIA [email or web address] / Plan: [employer] HMO / Product Type: HMO / Care [...] future healthcare decisions with a power of finance attorney, living will, or advance directives? Referrals: Message Sent to Practice: NO Navigation Signature: Gela Moreno August 16, 2020 9:50 AM [facility] 07-13-2020 Note HNO ID: [id number] Author: Patt Moreno Service: ? Author Type: [...] Care Gap or Scheduling/Wellness visits Payer: Payor: Klique AND BLUE SHIELD / Plan: [employer] MEDIBLAzumio HMO / Product Type: HMO / Care [...] future healthcare decisions with a power of finance attorney, living will, or advance directives? Referrals: Message Sent to Practice: NO Navigation Signature: Patt Moreno July 13, 2020 1:33 PM [facility] 07-13-2020 Note Patient Outreach (SHAVON TNAV) RENATO NOONAN ([id number]) 1950 M Date Time Provider Department 07/13/20 [facility] During your visit today, [...] Gap or Scheduling/Wellness visits Payer: Payor: SHELIA [employer] AND [employer] / Plan: SHELIA COLLAZO HMO / Product [...] future healthcare decisions with a power of finance attorney, living will, or advance directives? Referrals: [...] MIST 0.65 % NASAL SPRA* Use 1 [place] in the nose as ne* TICAGRELOR 90 [...] XEROSIS///SEBACEOUS GLAND DI (more content not included)... [facility] 07-07-2020 Note HNO ID: [id number] Author: Dannie Lee) Nura Service: ? Author [...] and subscapularis - Coronary artery disease involving [place] coronary artery of takotna heart with angina pectoris (HCC) - Diabetic neuropathy (HCC) - Esophageal reflux - Hypothyroidism - Internal hemorrhoids without mention of complication - Mixed hyperlipidemia Hyperlipidemia - STEMI (ST elevation myocardial infarction) (HCC) 11/2017 [facility], drug eluding stent placement - Unspecified [...] nitroglycerin sublingual (NIT (more content not included)... [facility] 06-13-2020 Note HNO ID: [id number] Author: Jeffrey Cartagena III Service: ? Author [...] Uric acid level 9.7 - Atrial fibrillation ([facility]) - Backache, unspecified - Bipolar I disorder, most recent episode (or current) unspecified - Closed traumatic brain injury ([facility]) Reports. 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 - ticagrelor [...] DAILY DX E11.9. INSULIN YES. - Insulin Kodak, Disposable, 31 gauge x 1/4 ndle USE TWICE DAILY FOR INSULIN ADMINISTRATION No current facility-administered medications on file prior to visit. FAMILY HISTORY Problem Relation Age of Onset - Thyroid Mother - Alcohol/Drug F (more content not included)... [facility] Summary Purpose Family History No Family [...] DATE CREATED AUTHOR AUTHOR'S ORGANIZ ATION 04/14/2019 [facility] DATE CREATED AUTHOR AUTHOR'S ORGANIZ ATION 05/16/2021 [facility] FOR RECORDS PERTAINING TO PATIENTS WHO [...] BE BASED ON THE PRIMARY CLINICAL RECORDS. [facility]. provides no warranty or guarantee of the accuracy or completeness of information in this document.
[2023-03-24] MEDS: Aspirin E.C. 81 MG Tablet PO (16:54)
[2023-03-24] MEDS: Furosemide 40 MG/4 ML Vial IV ×2 (16:55→23:38)
[2023-03-24] MEDS: 0.9% Saline Lock 10 ML Syringe IV (16:55)
[2023-03-24] MEDS: Insulin Lispro 100 UNIT/ML INSULN.PEN SC ×2 (17:06→21:59)
[2023-03-24 17:58] LABS: Bedside Glucose 157 mg/dL (74-106)
[2023-03-24] MEDS: guaiFENesin 10 ML UDC (200MG/10ML) 20 ML PO (21:46)
[2023-03-24] MEDS: Gabapentin 300 MG Capsule PO (21:46)
[2023-03-24] MEDS: RisperiDONE 1 MG Tablet 1.5 MG PO (21:58)
[2023-03-24] MEDS: Polyethylene Glycol 3350 17 GM PACKET PO (21:58)
[2023-03-24] MEDS: traZODone 50 MG Tablet PO (21:58)
[2023-03-24] MEDS: busPIRone 5 MG Tablet PO (21:58)
[2023-03-24] MEDS: Insulin Glargine-YFGN 100 UNIT/ML Pen 38 UNIT SC (21:59)
[2023-03-24] MEDS: OXcarbazepine 150 MG Tablet PO (21:59)
[2023-03-24 22:55] LABS: Bedside Glucose 169 mg/dL (74-106)
[2023-03-25] VITALS (22 sets, daily range): BP systolic 90–126; BP diastolic 46–87; PULSE 70–79; RESP 12–32; TEMP 36.3–37.3; O2SAT 92–99; BMI 27.4
[2023-03-25 03:39] LABS: Bedside Glucose 111 mg/dL (74-106)
[2023-03-25 05:25] LABS: Allen Test Positive; Base Excess 0 mmol/L (-2 to +2); Blood Gas Specimen Type ART; Mode Not entered; O2 Delivery Device BiPAP; PEEP 12; PIP 16; PO2 101 mmHG (75-100); SITE R Radial; SO2 97 % (95-99); Total Carbon Dioxide 28 mmol/L; pCO2 51.1 mmHg (35-45); pH 7.32 (7.35-7.45)
[2023-03-25] MEDS: Levothyroxine 112 MCG Tablet PO (05:38)
[2023-03-25] MEDS: busPIRone 5 MG Tablet PO ×2 (05:38→16:22)
[2023-03-25 06:44] LABS: Bedside Glucose 90 mg/dL (74-106)
--- NOTE | 2023-03-25 07:31 | PN.HOSP_ITS ---
Reason for Visit Reason for Visit: Diagnoses Hypoxemia (03/24/23) Objective Data Objective Data Vital Signs: Vital Signs Temp Pulse Resp BP Pulse Ox O2 Del Method O2 Flow Rate 98.2 F 75 18 111/70 96 High Flow 10 03/25/23 03:28 03/25/23 03:28 03/25/23 04:00 03/25/23 03:28 03/25/23 05:49 03/25/23 03:28 03/25/23 03:28 FiO2 40 03/25/23 05:49 Oxygen Flow Rate (L/min) 10 Oxygen Delivery Method High Flow Weight: 191 lb 9.307 oz Body Mass Index (BMI) 27.4 Intake & Output: Intake and Output for Last 24 Hours 03/23/23 03/24/23 03/25/23 23:59 23:59 23:59 Intake Total 400 / 400 Output Total 650 / 650 100 / 100 Balance -250 / -250 -100 / -100 Lab / Micro Data 03/25/23 07:25 03/25/23 07:25 Labs: Laboratory Results - last 24 hr 03/24/23 11:41: WBC 12.9 H, RBC 3.76 L, Hgb 11.0 L, Hct 33.9 L, MCV 90.2, MCH 29.3, MCHC 32.4, RDW Std Deviation 47.5 H, RDW Coeff of Shashank 14.3, Plt Count 298, MPV 10.1, Immature Gran % (Auto) 0.300, Neut % (Auto) 83.8 H, Lymph % (Auto) 4.6 L, Cobb % (Auto) 10.5 H, Eos % (Auto) 0.5, Baso % (Auto) 0.3, Absolute Neuts (auto) 10.8 H, Absolute Lymphs (auto) 0.59 L, Nucleated RBC % 0, Differential Comment SCANNED, Sodium 130 L, Potassium 4.5, Chloride 98, Carbon Dioxide 25.0, Anion Gap 7, BUN 45 H, Creatinine 3.26 H, Estim Creat Clear Calc 18.59, Est GFR (MDRD) Af Amer 24 L, Est GFR (MDRD) Non-Af 20 L, BUN/Creatinine Ratio 13.8, Glucose 155 H, Lactic Acid 1.2, Calcium 9.3, Troponin I High Sens 16, B- Natriuretic Peptide 815.5 H 03/24/23 16:46: POC Glucose 157 H 03/24/23 21:56: POC Glucose 169 H 03/25/23 03:19: POC Glucose 111 H 03/25/23 06:26: POC Glucose 90 Micro: Microbiology 03/24/23 11:41 Nasal Secretion SARS-CoV-2 & FLU Antigen (Rapid) - Final 03/24/23 11:41 Mucosa - Nose RSV RNA Qualitative (PCR) - Final RSV ABG Data ABG results: ABG 03/25/23 05:21 Specimen Type ART Sample Site R Radial pH 7.32 L Bicarbonate Actual 26.0 Total CO2 28 Base Excess 0 O2 Saturation 97 O2 % 60.0 ABG pCO2 51.1 H ABG pO2 101 H Adan Test Positive O2 Delivery Device BiPAP Vent Mode Not entered POC PEEP 12 Peak Inspir Pressure 16 Radiography Diagnostic Testing: Radiology Impression Chest X-Ray 03/24/23 11:55 IMPRESSION: Hypoventilatory and mild atelectatic changes. Electronically Signed: Nicholas Molina MD at 12:23 EST , Physical Exam Narrative Seen and examined. Patient has low tone voice. He states he was confused last night. Currently oriented to time and place and person. Complain of chest congestion, cough, not able to bring up phlegm's. Denies chest pain or pressure. Physical exam General: Awake, oriented x 3, Cooperative looks lethargic and slow. HEENT: Atraumatic, PERRLA, EOMI, Normocephalic Oral: No Gingival or Mucosal Lesions/ Ulcerations Neck: Supple, No JVD, Negative Carotid Bruits Lungs: Air entry diminished in bilateral lung bases. Bilateral coarse crepitations. Tachypneic. Hypoxic on 40% FiO2 BiPAP Cardiovascular: Regular rate, Regular Rhythm, Normal S1, Normal S2, No murmurs Abdomen: Bowel Sounds Present, Soft, Non Tender, Non-Distended : No renal angle tenderness. No suprapubic tenderness. Extremities: No edema, Capillary Refill Less than 3 Seconds Skin: No rashes, No breakdown Musculoskeletal: No Tenderness to Palpation of Joints or Extremities. ROM restricted. Neurological: Cranial nerves II-XII grossly intact, DTR 2+/4. No acute focal neurological deficit. Psych/Mental Status: Flat affect Assessment & Plan Assessment/Plan (1) Hypoxia: PLAN: Plan Car Ureña 72-year-old gentleman was brought to the ED for concerns of progressive shortness of breath. He has an extensive past medical history and is tested positive for RSV infection. 1. Acute on chronic respiratory failure most likely due to RSV pneumonia: Patient is being admitted in PCU. Currently patient does not look like fluid overload and his body weight is lower than dry weight compared to the prior discharge 2 months ago. Continue oxygen/NIPPV, BiPAP. DuoNeb nebulization, Lasix as needed. Pacemaker interrogation. Echo done Interpretation Summary Mild concentric left ventricular hypertrophy. The left ventricular ejection fraction is 65 %. Unable to assess diastolic dysfunction due to arrhythmia. The left atrium is severely enlarged. Mild (1+) mitral valve insufficiency. 2. Coronary artery disease s/p PCI October 2017 [facility] to mid LAD, chronic HFpEF: Echocardiogram as above. Mild MR. 3. Hypertension: Currently blood pressure on the lower side in systolic 90s to 100: Hold antihypertensive medication 4. Type 2 diabetes continue long-acting insulin, continue sliding scale for correctional insulin only 5. Hypothyroidism: Continue Synthroid, serum TSH tomorrow morning 6. Schizoaffective disorder: Continue home medications 7. RIVAS on CKD stage IV: Patient baseline creatinine runs around 3.2-3.4. BUNs/creatinine increased to 59/3.86 probably due to Lasix given in the ED. Serum sodium 132, hyponatremia serum potassium normal. Will consult nephrology. 8. Acute encephalopathy, confusion probably due to infection/obvious infection and metabolic encephalopathy: Try to correct underlying disorder. Microbiology Past 72 Hours 03/24/23 11:41 Nasal Secretion SARS-CoV-2 & FLU Antigen (Rapid) - Final 03/24/23 11:41 Mucosa - Nose RSV RNA Qualitative (PCR) - Final RSV Laboratory Results 03/24/23 16:46: POC Glucose 157 H 03/24/23 21:56: POC Glucose 169 H 03/25/23 03:19: POC Glucose 111 H 03/25/23 05:21: Specimen Type ART, Sample Site R Radial, pH 7.32 L, Bicarbonate Actual 26.0, Total CO2 28, Base Excess 0, O2 Saturation 97, O2 % 60.0, ABG pCO2 51.1 H, ABG pO2 101 H, Adan Test Positive, O2 Delivery Device BiPAP, Vent Mode Not entered, POC PEEP 12, Peak Inspir Pressure 16 03/25/23 06:26: POC Glucose 90 03/25/23 07:25: WBC 7.8, RBC 3.39 L, Hgb 9.9 L, Hct 31.4 L, MCV 92.6, MCH 29.2, MCHC 31.5 L, RDW Std Deviation 49.0 H, RDW Coeff of Shashank 14.5, Plt Count 268, MPV 10.5, Immature Gran % (Auto) 0.400, Neut % (Auto) 74.0 H, Lymph % (Auto) 11.1 L, Cobb % (Auto) 12.6 H, Eos % (Auto) 1.5, Baso % (Auto) 0.4, Absolute Neuts (auto) 5.7, Absolute Lymphs (auto) 0.86, Nucleated RBC % 0, PT 15.0 H, INR 1.2, Sodium 132 L, Potassium 4.2, Chloride 99, Carbon Dioxide 28.0, Anion Gap 5, BUN 59 H, Creatinine 3.86 H, Estim Creat Clear Calc 17.34, Est GFR (MDRD) Af Amer 20 L, Est GFR (MDRD) Non-Af 16 L, BUN/Creatinine Ratio 15.3, Glucose 81, Calcium 9.0, Phosphorus 4.9, Magnesium 2.3, Total Bilirubin 0.30, Direct Bilirubin 0.17, AST 27, ALT 21, Alkaline Phosphatase 42 L, Total Protein 6.3 L, Albumin 2.3 L, Globulin 4.0, Albumin/Globulin Ratio 0.6 L, TSH 0.69 03/25/23 11:15: POC Glucose 268 H Charges/Coding Visit Charges Inpatient E&M: 90852 Subs Hosp L2
[2023-03-25 08:12] LABS: Absolute Lymphocyte Count 0.86 X10^3/uL (0.83-4.51); Absolute Neutrophil Count 5.7 X10^3/uL (2.0-7.7); Basophil# 0.03 X10^3/uL; Basophil% 0.4 % (0-1); Eosinophil# 0.12 X10^3/uL; Eosinophils% 1.5 % (0-5); Hematocrit 31.4 % (40-54); Hemoglobin 9.9 g/dL (13.0-16.5); Lymphocyte # 0.86 X10^3/ul (0.83-4.51); Lymphocyte % 11.1 % (19-41); Mean Corp Hgb Conc 31.5 g/dL (32-36); Mean Corpuscular Hgb 29.2 pg (27.0-32.0); Mean Corpuscular Volume 92.6 fL (80-94); Mean Platelet Vol. 10.5 fl (6.2-12.0); Monocyte# 0.98 X10^3/uL; Monocyte% 12.6 % (0-10); NRBC Flagged by Analyzer 0 % (0-5); Neutrophil # 5.74 X10^3/uL (2.7-7.7); Platelet Count 268 K/mm3 (150-450); RBC Distribution Width CV 14.5 % (11.6-14.6); Red Blood Count 3.39 M/mm3 (4.6-6.2); White Blood Count 7.8 K/mm3 (4.4-11.0)
[2023-03-25 08:31] LABS: International Normalized Ratio 1.2
[2023-03-25] MEDS: Gabapentin 300 MG Capsule PO (08:59)
[2023-03-25] MEDS: Polyethylene Glycol 3350 17 GM PACKET PO (08:59)
[2023-03-25] MEDS: RisperiDONE 1 MG Tablet 1.5 MG PO (08:59)
[2023-03-25] MEDS: amLODIPine 10 MG Tablet PO (09:00)
[2023-03-25] MEDS: lamoTRIgine 100 MG Tablet PO (09:00)
[2023-03-25] MEDS: Sertraline 100 MG Tablet PO (09:00)
[2023-03-25] MEDS: Carvedilol 6.25 MG Tablet PO (09:00)
[2023-03-25] MEDS: Aspirin E.C. 81 MG Tablet PO (09:00)
[2023-03-25] MEDS: guaiFENesin 10 ML UDC (200MG/10ML) 20 ML PO (09:00)
[2023-03-25] MEDS: Loratadine 10 MG Tablet PO (09:00)
[2023-03-25] MEDS: OXcarbazepine 150 MG Tablet PO (09:01)
[2023-03-25] MEDS: Enoxaparin 30 MG/0.3 ML Syringe SC (09:01)
[2023-03-25 09:09] LABS: ALB/GLOB Ratio 0.6 RATIO (0.9-2.4); AST(SGOT) 27 U/L (15-37); Alanine Aminotransfer ALT/SGPT 21 U/L (16-61); Albumin, Serum 2.3 g/dL (3.2-5.0); Alkaline Phosphatase 42 U/L (45-117); Anion Gap 5 (5-15); BUN 59 mg/dL (7-18); BUN/Creat Ratio 15.3 RATIO (10-20); Bilirubin, Direct 0.17 mg/dL (0.00-0.30); Chloride 99 mmol/L (98-107); Creatinine, Serum 3.86 mg/dL (0.70-1.30); EST Glomerular Filtration Rate 16 mL/min (>60); Est Glom Filt Rate - Afr Amer 20 mL/min (>60); Estimated Creatinine Clearance 17.34 ml/min; Glucose 81 mg/dL (74-106); Magnesium 2.3 mg/dL (1.6-2.6); Phosphorus 4.9 mg/dL (2.5-4.9); Potassium 4.2 mmol/L (3.5-5.1); Protein, Total 6.3 g/dL (6.4-8.2); Sodium Level 132 mmol/L (136-145); Thyroid Stim Hormone (TSH) 0.69 uIU/mL (0.358-3.74)
--- NOTE | 2023-03-25 10:45 | CASEMGMT ---
Addendum entered by Jess Hogan 03/25/23 10:51: Patient will not need a precert to return. SW updated. Jess Hogan, Discharge Planning Asst. Original Note: Discharge Planning Updates sent to [facility] via [facility]. Asked if precert will be needed for patient to return. Awaiting response. Jess Hogan, Discharge Planning Asst.
[2023-03-25] MEDS: Insulin Lispro 100 UNIT/ML INSULN.PEN SC (11:19)
--- NOTE | 2023-03-25 11:20 | CASEMGMT ---
JACOB called patient's sister Em and left her a voice mail requesting a return call regarding patient's discharge plan. Mechelle Chew INTERPRETER DEAFLurdes CERVANTES
--- NOTE | 2023-03-25 11:22 | CASEMGMT ---
Em called back and confirmed the plan is for patient to return to [facility] at d/c. Mechelle Chew [employer] ENGLISH TEACHER HELEN
[2023-03-25 11:39] LABS: Bedside Glucose 268 mg/dL (74-106)
--- NOTE | 2023-03-25 15:22 | WOUNDNOTE ---
wound photo: left buttock
[2023-03-25] MEDS: guaiFENesin/D-Methorphan TAB.SR.12H 2 TABLET PO (16:23)
[2023-03-25 16:45] LABS: Bedside Glucose 106 mg/dL (74-106)
[2023-03-25 23:46] LABS: Bedside Glucose 112 mg/dL (74-106)
[2023-03-26] VITALS (17 sets, daily range): BP systolic 97–119; BP diastolic 60–73; PULSE 71–85; RESP 12–20; TEMP 36.5–37.1; O2SAT 87–99; BMI 27.4
[2023-03-26] MEDS: busPIRone 5 MG Tablet PO ×3 (00:23→13:49)
[2023-03-26] MEDS: guaiFENesin/D-Methorphan TAB.SR.12H 2 TABLET PO ×2 (00:23→20:22)
[2023-03-26] MEDS: OXcarbazepine 150 MG Tablet PO (00:24)
[2023-03-26] MEDS: Gabapentin 300 MG Capsule PO (00:24)
[2023-03-26] MEDS: traZODone 50 MG Tablet PO (00:24)
[2023-03-26] MEDS: RisperiDONE 1 MG Tablet 1.5 MG PO (00:24)
[2023-03-26 03:34] LABS: Bedside Glucose 80 mg/dL (74-106)
[2023-03-26] MEDS: Levothyroxine 112 MCG Tablet PO (06:18)
[2023-03-26] MEDS: Ipratropium/Albuterol Sulfate 3 ML AMPUL.NEB INHALATION ×3 (06:37→19:40)
[2023-03-26 06:47] LABS: Bedside Glucose 118 mg/dL (74-106)
[2023-03-26 07:17] LABS: Absolute Lymphocyte Count 0.92 X10^3/uL (0.83-4.51); Absolute Neutrophil Count 5.2 X10^3/uL (2.0-7.7); Basophil# 0.02 X10^3/uL; Basophil% 0.3 % (0-1); Eosinophil# 0.18 X10^3/uL; Eosinophils% 2.4 % (0-5); Hematocrit 30.3 % (40-54); Hemoglobin 9.5 g/dL (13.0-16.5); Lymphocyte # 0.92 X10^3/ul (0.83-4.51); Lymphocyte % 12.5 % (19-41); Mean Corp Hgb Conc 31.4 g/dL (32-36); Mean Corpuscular Hgb 29.1 pg (27.0-32.0); Mean Corpuscular Volume 92.7 fL (80-94); Mean Platelet Vol. 10.6 fl (6.2-12.0); Monocyte# 1.04 X10^3/uL; Monocyte% 14.1 % (0-10); NRBC Flagged by Analyzer 0 % (0-5); Neutrophil # 5.19 X10^3/uL (2.7-7.7); Neutrophil % 70.4 % (47-70); Platelet Count 261 K/mm3 (150-450); RBC Distribution Width CV 14.4 % (11.6-14.6); RBC Distribution Width SD 49.1 fl (35.1-43.9); Red Blood Count 3.27 M/mm3 (4.6-6.2); White Blood Count 7.4 K/mm3 (4.4-11.0)
[2023-03-26 08:03] LABS: Anion Gap 7 (5-15); BUN 81 mg/dL (7-18); BUN/Creat Ratio 17.5 RATIO (10-20); Calcium,Total 8.7 mg/dL (8.5-10.1); Chloride 101 mmol/L (98-107); Creatinine, Serum 4.62 mg/dL (0.70-1.30); EST Glomerular Filtration Rate 13 mL/min (>60); Est Glom Filt Rate - Afr Amer 16 mL/min (>60); Estimated Creatinine Clearance 14.48 ml/min; Glucose 137 mg/dL (74-106); Potassium 4.3 mmol/L (3.5-5.1); Sodium Level 133 mmol/L (136-145)
--- NOTE | 2023-03-26 08:56 | PN.HOSP_ITS ---
Reason for Visit Reason for Visit: Diagnoses Hypoxemia (03/24/23) Subjective Subjective Groggy today. Keeps present radiating questions. Objective Data Objective Data Vital Signs: Vital Signs Temp Pulse Resp BP Pulse Ox O2 Del Method O2 Flow Rate 36.6 C 73 20 H 104/62 99 Bi-pap 10 03/26/23 07:30 03/26/23 07:30 03/26/23 07:30 03/26/23 07:30 03/26/23 07:30 03/26/23 07:51 03/26/23 06:20 FiO2 40 03/26/23 07:51 Oxygen Flow Rate (L/min) 10 Oxygen Delivery Method Bi-pap Weight: 86.9 kg Body Mass Index (BMI) 27.4 Intake & Output: Intake and Output for Last 24 Hours 03/24/23 03/25/23 03/26/23 23:59 23:59 23:59 Intake Total 400 / 400 520 / 520 Output Total 650 / 650 1100 / 1100 750 / 750 Balance -250 / -250 -580 / -580 -750 / -750 Lab / Micro Data 03/26/23 06:45 03/26/23 06:45 Labs: Laboratory Results - last 24 hr 03/25/23 07:25: Sodium 132 L, Potassium 4.2, Chloride 99, Carbon Dioxide 28.0, Anion Gap 5, BUN 59 H, Creatinine 3.86 H, Estim Creat Clear Calc 17.34, Est GFR (MDRD) Af Amer 20 L, Est GFR (MDRD) Non-Af 16 L, BUN/Creatinine Ratio 15.3, Glucose 81, Calcium 9.0, Phosphorus 4.9, Magnesium 2.3, Total Bilirubin 0.30, Direct Bilirubin 0.17, AST 27, ALT 21, Alkaline Phosphatase 42 L, Total Protein 6.3 L, Albumin 2.3 L, Globulin 4.0, Albumin/Globulin Ratio 0.6 L, TSH 0.69 03/25/23 11:15: POC Glucose 268 H 03/25/23 16:21: POC Glucose 106 03/25/23 21:53: POC Glucose 112 H 03/26/23 03:11: POC Glucose 80 03/26/23 06:17: POC Glucose 118 H 03/26/23 06:45: WBC 7.4, RBC 3.27 L, Hgb 9.5 L, Hct 30.3 L, MCV 92.7, MCH 29.1, MCHC 31.4 L, RDW Std Deviation 49.1 H, RDW Coeff of Shashank 14.4, Plt Count 261, MPV 10.6, Immature Gran % (Auto) 0.300, Neut % (Auto) 70.4 H, Lymph % (Auto) 12.5 L, [place] % (Auto) 14.1 H, Eos % (Auto) 2.4, Baso % (Auto) 0.3, Absolute Neuts (auto) 5.2, Absolute Lymphs (auto) 0.92, Nucleated RBC % 0, Sodium 133 L, Potassium 4.3, Chloride 101, Carbon Dioxide 25.0, Anion Gap 7, BUN 81 H, Creatinine 4.62 H , Estim Creat Clear Calc 14.48, Est GFR (MDRD) Af Amer 16 L, Est GFR (MDRD) Non- Af 13 L, BUN/Creatinine Ratio 17.5, Glucose 137 H, Calcium 8.7 Micro: Microbiology 03/24/23 11:41 Nasal Secretion SARS-CoV-2 & FLU Antigen (Rapid) - Final 03/24/23 11:41 Mucosa - Nose RSV RNA Qualitative (PCR) - Final RSV Radiography Diagnostic Testing: Radiology Impression Echocardiogram 03/24/23 14:29 Interpretation Summary Mild concentric left ventricular hypertrophy. The left ventricular ejection fraction is 65 %. Unable to assess diastolic dysfunction due to arrhythmia. The left atrium is severely enlarged. Mild (1+) mitral valve insufficiency. Ordering Physician: Anival Rogers Referring Physician: NERY VOSS Performed By: Amy Woodard, SYED Physical Exam Const Constitutional Narrative: Awake but groggy. Repeats the same question over and over again. Moist heart stronger than fades out. 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 HEENT Mouth: oral and palatal mucosa normal Resp Resp Narrative: Coarse breath sounds bilaterally Cardio regular rate, regular rhythm, S1 normal heart sound and S2 normal heart sound GI normal to inspection, nondistended, normoactive bowel sounds and soft to palpation Extremity normal to inspection Assessment & Plan Assessment/Plan (1) Hypoxia: PLAN: Plan Acute on chronic respiratory failure hypoxic and hypercapnic * 2/2 RSV, possible complicated by Acute HFpEF as there are pleural effusions on CXR. * Avoid diuretics as creatinine has worsened. * Echo shows EF 65%. Severely enlarged LA. Encephalopathy: * Unclear if due to underlying infection, respiratory status and medications. * Will avoid potentiating medications. Discontinue trazodone, Lamictal, gabapentin, buspirone and risperidone. * Check ammonia level RIVAS: * worsening. * nephrology on consult. * Discussed with Dr. Carlisle hold off on IV fluids for now given his tenuous respiratory status. Chronic conditions: * Coronary artery disease s/p PCI October 2017 LAURE to mid LAD, chronic HFpEF: Echocardiogram as above. Mild MR. * Hypertension: Currently blood pressure on the lower side in systolic 90s to 100: Hold antihypertensive medication * Type 2 diabetes continue long-acting insulin, continue sliding scale for co rrectional insulin only * Hypothyroidism: Continue Synthroid, serum TSH tomorrow morning * Schizoaffective disorder: Hold medications due to somnolence. VTE prophylaxis: enoxaparin. Charges/Coding Visit Charges Inpatient E&M: 94102 Subs Hosp L2
[2023-03-26] MEDS: Enoxaparin 30 MG/0.3 ML Syringe SC (10:36)
[2023-03-26 12:17] LABS: Bedside Glucose 77 mg/dL (74-106)
--- NOTE | 2023-03-26 12:37 | CON.PCM.RE_ITS ---
Assessment & Plan Assessment/Plan (1) Chronic kidney disease: PLAN: Appears to have CKD stage IV, baseline creatinine around 3-3.5. Crea tinine is now up to 4.8. No contrast agents. Blood pressure is acceptable. Hernádnez catheter indwelling and the chance of retention are low. Overall does not necessarily look volume overloaded. Chest x-ray from 03/24/2023 did not show significant fluid overload. Echocardiogram with decent ejection fraction. BNP on the first was 800. Hold diuresis. Will check with primary to see if there is any benefit in giving fluids. HPI Consult Data Date of Consult: 03/26/23 HPI Narrative Reason for Consultation: Acute renal failure HPI Narrative: RENATO NOONAN, is a 72 M who presents to the hospital with shortness of breath. Admitted with RSV pneumonia. Nephrology on consultation in view of acute renal failure. It appears he has no history of CKD stage IV with baseline creatinine between 3-3.5. Currently denies any obstructive symptoms. Hernández catheter in place. Appetite is fair. No breathing difficulties. Saturating well on nasal cannula. Blood pressure is acceptable. Did not receive any contrast agent since yesterday. [facility] Medical History (Updated 03/26/23 @ 12:[address] Marquise Miranda MD) Accidental acetaminophen overdose Acute kidney injury Anxiety Arthritis Atherosclerotic heart disease of [place] coronary artery without angina pectoris Back problem Bipolar disorder Cataracts, bilateral Chronic kidney disease (CKD) stage G3b/A2, moderately decreased glomerular filtration rate (GFR) between 30-44 mL/min/1.73 square meter and albuminuria creatinine ratio between 30-299 mg/g Complete heart block Debility Decubitus ulcer of left buttock, stage 3 Depression Diabetes mellitus, type II Essential hypertension Falls Gout Headache Heart failure History of ST elevation myocardial infarction (STEMI) (11/19/17) Hyperlipidemia Hypoxia Insomnia Kidney disease Neuropathy Osteoarthritis Paroxysmal atrial fibrillation Partial small bowel obstruction Recurrent UTI Schizoaffective disorder Seasonal allergies Sepsis Syncope Traumatic brain injury Home Medications multivitamin 1 tab PO DAILY HEALTH MAINTENANCE 09/07/16 [History Last Taken 12/10/21] aspirin 81 mg tablet,delayed release 81 mg PO QDAY HEART HEALTH 02/27/17 [History Last Taken 12/10/21] nitroglycerin 0.4 mg sublingual tablet (Nitrostat) 0.4 mg sublingual Q5M PRN CHEST PAIN 02/27/17 [History Last Taken 12/29/18] amlodipine 10 mg tablet 10 mg PO DAILY BLOOD PRESSURE 02/03/19 [History Last Taken 12/10/21] cholecalciferol (vitamin D3) 25 mcg (1,000 unit) capsule 1,000 unit PO DAILY SUPPLEMENT 02/03/19 [History Last Taken 12/10/21] carvedilol 6.25 mg tablet 12.5 mg PO BID HEART 03/25/20 [History Last Taken 12/10/21] levothyroxine 112 mcg tablet 112 mcg PO DAILY THYROID 09/23/20 [History Last Taken 12/10/21] paliperidone palmitate 234 mg/1.5 mL intramuscular syringe (Invega Sustenna) 234 mg IM Q28D SCHIZOPHRENIA 01/05/21 [History Last Taken 11/29/21] trazodone 50 mg tablet 50 mg PO QHS INSOMNIA 01/05/21 [History Last Taken 11/22 11/12] fenofibrate micronized 200 mg capsule 200 mg PO DAILY CHOLESTEROL 03/01/21 [History Last Taken 12/10/21] acetaminophen 500 mg tablet 1,000 mg PO TID PAIN 12/10/21 [History Last Taken 12/10/21] albuterol sulfate 90 mcg/actuation aerosol inhaler (Ventolin HFA) 2 puff inhalation Q4H PRN SHORTNESS OF BREATH 12/10/21 [History Last Taken 12/10/21] calcium polycarbophil 625 mg tablet (Fiber-Tabs) 625 mg PO DAILY CONSTIPATION 12/10/21 [History Last Taken 12/10/21] lamotrigine 100 mg tablet 100 mg PO DAILY MOOD 12/10/21 [History Last Taken 12/10/21] loratadine 10 mg tablet 10 mg PO DAILY RASH 12/10/21 [History Last Taken 12/10/21] oxcarbazepine 150 mg tablet 150 mg PO BID BIPOLAR DISORDER 12/10/21 [History Last Taken 12/10/21] risperidone 1 mg tablet 1.5 mg PO .HS SCHIZOPHRENIA 12/10/21 [History Last Taken 12/10/21] triamcinolone acetonide 0.1 % topical cream 1 applic topical Q12H PRN Rash 12/10/21 [History Last Taken 12/03/21] buspirone 5 mg tablet 5 mg PO BID ANXIETY 08/06/22 [History Last Taken Unknown] cetirizine 10 mg tablet 10 mg PO DAILY ALLERGIES/RASH 08/06/22 [History Last Taken Unknown] ferrous sulfate 325 mg (65 mg iron) tablet 325 mg PO DAILY SUPPLEMENT 08/06/22 [History Last Taken Unknown] guaifenesin 400 mg tablet 400 mg PO BID CONGESTION 08/06/22 [History Last Taken Unknown] sertraline 100 mg tablet (Zoloft) 100 mg PO DAILY ANXIETY/DEPRESSION 08/06/22 [History Last Taken Unknown] insulin glargine 100 unit/mL (3 mL) subcutaneous pen 38 unit subcut [facility] DIABETES 08/27/22 [History Last Taken Unknown] oxcarbazepine 300 mg tablet 300 mg PO BID BIPOLAR DISORDER 08/27/22 [History Last Taken Unknown] sennosides 8.6 mg tablet 8.6 mg PO Q12H CONSTIPATION 08/27/22 [History Last Taken Unknown] furosemide 20 mg tablet (Lasix) 20 mg PO DAILY #30 tabs 08/30/22 [Rx Last Taken Unknown] gabapentin 600 mg tablet 300 mg (1/2 x 600 mg) PO BID NERVE PAIN 30 days #60 tabs 08/30/22 [Rx Last Taken Unknown] insulin lispro 100 unit/mL subcutaneous pen (Humalog KwikPen (U-100) Insulin) See Protocol subcut ACHS #0 mL 08/30/22 [Rx Last Taken Unknown] escitalopram oxalate 5 mg tablet 5 mg PO DAILY depression 03/24/23 [History Last Taken Unknown] polyethylene glycol 3350 17 gram oral powder packet 17 g PO DAILY 03/24/23 [History Last Taken Unknown] risperidone 2 mg tablet 2 mg PO DAILY schizophrina 03/24/23 [History Last Taken 03/24/23 08:00 2 mg] tamsulosin 0.4 mg capsule 0.4 mg PO .HS BPH 03/24/23 [History Last Taken Unknown] Allergy/AdvReac Type Severity Reaction Status Date / Time atorvastatin [From Lipitor] Allergy Unknown Verified 12/16/22 09:39 Penicillins Allergy Unknown Verified 12/16/22 09:39 lisinopril AdvReac Unknown unknown Verified 12/16/22 09:39 codeine AdvReac Upset Verified 12/16/22 09:39 Stomach doxycycline AdvReac Other Verified 12/16/22 09:39 lycopene AdvReac Other Verified 12/16/22 09:39 nickel AdvReac Rash Verified 12/16/22 09:39 Family History Father Arthritis Bleeding disorder Heart disease Hypertension Mother Hypertension Surgical History History of coronary artery stent placement (11/19/17) History of permanent cardiac pacemaker placement (01/08/21) Social History household members: none housing: residential Smoking Status: Never smoker alcohol intake: never substance use type: does not use caffeine: Yes ROS ROS Narrative Negative except above Physical Exam Narrative Alert awake oriented x 3 no obvious distress no pallor no icterus no JVD s1s2 no murmurs lungs clear abdomen soft no organomegaly no edema no cyanosis hernández + Lab / Micro Data 03/26/23 06:45 03/26/23 06:45 Labs: Laboratory Results - last 24 hr 03/25/23 16:21: POC Glucose 106 03/25/23 21:53: POC Glucose 112 H 03/26/23 03:11: POC Glucose 80 03/26/23 06:17: POC Glucose 118 H 03/26/23 06:45: WBC 7.4, RBC 3.27 L, Hgb 9.5 L, Hct 30.3 L, MCV 92.7, MCH 29.1, MCHC 31.4 L, RDW Std Deviation 49.1 H, RDW Coeff of Shashank 14.4, Plt Count 261, MPV 10.6, Immature Gran % (Auto) 0.300, Neut % (Auto) 70.4 H, Lymph % (Auto) 12.5 L, Yell % (Auto) 14.1 H, Eos % (Auto) 2.4, Baso % (Auto) 0.3, Absolute Neuts (auto) 5.2, Absolute Lymphs (auto) 0.92, Nucleated RBC % 0, Sodium 133 L, Potassium 4.3, Chloride 101, Carbon Dioxide 25.0, Anion Gap 7, BUN 81 H, Creatinine 4.62 H , Estim Creat Clear Calc 14.48, Est GFR (MDRD) Af Amer 16 L, Est GFR (MDRD) Non- Af 13 L, BUN/Creatinine Ratio 17.5, Glucose 137 H, Calcium 8.7 03/26/23 11:58: POC Glucose 77 Micro: Microbiology 03/24/23 12:05 Blood Culture (Wb) #2 - Anticubital Left Blood Culture - Pre liminary No growth in 48 hours. 03/24/23 11:41 Blood Culture (Wb) - Anticubital Right Blood Culture - Preliminary No growth in 48 hours. Imagaing Radiology Impression Echocardiogram 03/24/23 14:29 Interpretation Summary Mild concentric left ventricular hypertrophy. The left ventricular ejection fraction is 65 %. Unable to assess diastolic dysfunction due to arrhythmia. The left atrium is severely enlarged. Mild (1+) mitral valve insufficiency. Ordering Physician: Anival Rogers Referring Physician: NERY VOSS Performed By: Amy Woodard, RDMARKOS
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
[2023-03-26 17:02] LABS: Bedside Glucose 336 mg/dL (74-106)
[2023-03-26] MEDS: Insulin Lispro 100 UNIT/ML INSULN.PEN SC ×2 (17:03→20:24)
[2023-03-26] MEDS: Haloperidol Lactate 5 MG/ML Vial 1 MG IV (20:22)
[2023-03-26] MEDS: Insulin Glargine-YFGN 100 UNIT/ML Pen 38 UNIT SC (20:25)
[2023-03-26 21:13] LABS: Bedside Glucose 181 mg/dL (74-106)
[2023-03-27] VITALS (24 sets, daily range): BP systolic 94–133; BP diastolic 52–77; PULSE 70–82; RESP 12–27; TEMP 36.4–37; O2SAT 88–99; BMI 27.6
[2023-03-27] MEDS: Haloperidol Lactate 5 MG/ML Vial 1 MG IV ×2 (01:36→10:42)
[2023-03-27 01:56] LABS: Bedside Glucose 118 mg/dL (74-106)
[2023-03-27] MEDS: Levothyroxine 112 MCG Tablet PO (05:12)
[2023-03-27 05:57] LABS: Bedside Glucose 80 mg/dL (74-106)
[2023-03-27] MEDS: Ipratropium/Albuterol Sulfate 3 ML AMPUL.NEB INHALATION ×3 (06:52→19:26)
[2023-03-27 07:53] LABS: Absolute Lymphocyte Count 0.98 X10^3/uL (0.83-4.51); Basophil# 0.02 X10^3/uL; Basophil% 0.3 % (0-1); Eosinophil# 0.13 X10^3/uL; Eosinophils% 1.8 % (0-5); Hematocrit 29.9 % (40-54); Hemoglobin 9.3 g/dL (13.0-16.5); Lymphocyte # 0.98 X10^3/ul (0.83-4.51); Lymphocyte % 13.9 % (19-41); Mean Corp Hgb Conc 31.1 g/dL (32-36); Mean Corpuscular Hgb 29.1 pg (27.0-32.0); Mean Corpuscular Volume 93.4 fL (80-94); Mean Platelet Vol. 10.4 fl (6.2-12.0); Monocyte# 0.83 X10^3/uL; Monocyte% 11.8 % (0-10); NRBC Flagged by Analyzer 0 % (0-5); Neutrophil # 5.04 X10^3/uL (2.7-7.7); Neutrophil % 71.5 % (47-70); Platelet Count 293 K/mm3 (150-450); RBC Distribution Width CV 14.4 % (11.6-14.6); RBC Distribution Width SD 49.1 fl (35.1-43.9); White Blood Count 7.1 K/mm3 (4.4-11.0)
[2023-03-27 08:18] LABS: Anion Gap 9 (5-15); BUN 83 mg/dL (7-18); BUN/Creat Ratio 18.1 RATIO (10-20); Calcium,Total 8.7 mg/dL (8.5-10.1); Chloride 100 mmol/L (98-107); Creatinine, Serum 4.59 mg/dL (0.70-1.30); EST Glomerular Filtration Rate 13 mL/min (>60); Est Glom Filt Rate - Afr Amer 16 mL/min (>60); Estimated Creatinine Clearance 14.58 ml/min; Glucose 52 mg/dL (74-106); Potassium 4.2 mmol/L (3.5-5.1); Sodium Level 135 mmol/L (136-145)
--- NOTE | 2023-03-27 08:41 | PN.HOSP_ITS ---
Reason for Visit Reason for Visit: Diagnoses Chronic kidney disease, unspecified (03/24/23) Hypoxemia (03/24/23) Subjective Subjective Has been on BiPAP since last night. Was attempting to take off his mask. Objective Data Objective Data Vital Signs: Vital Signs Temp Pulse Resp BP Pulse Ox O2 Del Method O2 Flow Rate 37.0 C 75 23 H 94/63 96 Bi-pap 4 03/27/23 04:00 03/27/23 07:57 03/27/23 07:57 03/27/23 04:00 03/27/23 08:11 03/27/23 08:11 03/27/23 06:55 FiO2 40 03/27/23 07:57 Oxygen Flow Rate (L/min) 4 Oxygen Delivery Method Bi-pap Weight: 87.5 kg Body Mass Index (BMI) 27.6 Intake & Output: Intake and Output for Last 24 Hours 03/25/23 03/26/23 03/27/23 23:59 23:59 23:59 Intake Total 520 / 520 370 / 610 480 / 480 Output Total 1100 / 1100 1350 / 1750 800 / 800 Balance -580 / -580 -980 / -1140 -320 / -320 Lab / Micro Data 03/27/23 07:30 03/27/23 07:30 Labs: Laboratory Results - last 24 hr 03/26/23 11:58: POC Glucose 77 03/26/23 15:30: Ammonia 49.0 H 03/26/23 16:40: POC Glucose 336 H 03/26/23 20:23: POC Glucose 181 H 03/27/23 01:37: POC Glucose 118 H 03/27/23 05:15: POC Glucose 80 03/27/23 07:30: WBC 7.1, RBC 3.20 L, Hgb 9.3 L, Hct 29.9 L, MCV 93.4, MCH 29.1, MCHC 31.1 L, RDW Std Deviation 49.1 H, RDW Coeff of Shashank 14.4, Plt Count 293, MPV 10.4, Immature Gran % (Auto) 0.700, Neut % (Auto) 71.5 H, Lymph % (Auto) 13.9 L, [place] % (Auto) 11.8 H, Eos % (Auto) 1.8, Baso % (Auto) 0.3, Absolute Neuts (auto) 5.0, Absolute Lymphs (auto) 0.98, Nucleated RBC % 0, Sodium 135 L, Potassium 4.2, Chloride 100, Carbon Dioxide 26.0, Anion Gap 9, BUN 83 H, Creatinine 4.59 H , Estim Creat Clear Calc 14.58, Est GFR (MDRD) Af Amer 16 L, Est GFR (MDRD) Non- Af 13 L, BUN/Creatinine Ratio 18.1, Glucose 52 L, Calcium 8.7 Micro: Microbiology 03/24/23 12:05 Blood Culture (Wb) #2 - Anticubital Left Blood Culture - Preliminary No growth in 48 hours. 03/24/23 11:41 Blood Culture (Wb) - Anticubital Right Blood Culture - Preliminary No growth in 48 hours. 03/24/23 11:41 Nasal Secretion SARS-CoV-2 & FLU Antigen (Rapid) - Final 03/24/23 11:41 Mucosa - Nose RSV RNA Qualitative (PCR) - Final RSV Physical Exam Const no apparent distress Constitutional Narrative: confused. awake. on BiPAP. Resp Resp Narrative: coarse BS bilaterally. Cardio regular rate and regular rhythm GI normal to inspection, nondistended, normoactive bowel sounds Extremity normal to inspection Assessment & Plan Assessment/Plan (1) Hypoxia: PLAN: Plan Acute on chronic respiratory failure hypoxic and hypercapnic * 2/2 RSV, possible complicated by Acute HFpEF as there are pleural effusions on CXR. * Avoid diuretics given RIVAS * Echo shows EF 65%. Severely enlarged LA. * ABG showed: 7.27/53.6/92.5 * Repeat CXR showed no significant change * [facility], transfer to ICU. Encephalopathy: * Unclear if due to underlying infection, respiratory status and medications. * Will avoid potentiating medications. Discontinue trazodone, Lamictal, gabapentin, buspirone and risperidone. * Ammonia 49. May benefit from lactulose when able to be weaned off BiPAP. RIVAS: * worsening. * nephrology on consult. * Discussed with Dr. Carlisle 1/3 hold off on IV fluids for now given his tenuous respiratory status. Chronic conditions: * Coronary artery disease s/p PCI October 2017 LAURE to mid LAD, chronic HFpEF: Echocardiogram as above. Mild MR. * Hypertension: Currently blood pressure on the lower side in systolic 90s to 100: Hold antihypertensive medication * Type 2 diabetes continue long-acting insulin, continue sliding scale for correctional insulin only * Hypothyroidism: Continue Synthroid, serum TSH tomorrow morning * Schizoaffective disorder: Hold medications due to somnolence. VTE prophylaxis: enoxaparin. Prognosis: guarded. Charges/Coding Visit Charges Inpatient E&M: 36223 Subs Hosp L3
--- NOTE | 2023-03-27 08:46 | RAD_ITS ---
HISTORY: respiratory failure. TECHNIQUE: XR Chest 1 View. COMPARISON: 03/24/2023. FINDINGS: LINES/TUBES: Pacemaker again seen. CARDIOMEDIASTINAL BORDERS: Stable. LUNGS: Decreased mild bibasilar opacities. PLEURA: Decreased trace pleural effusions. RAD/Chest 1 View (Portable) IMPRESSION: Decreased pleural effusions with decreased bibasilar atelectasis or pneumonia. Electronically Signed: Mendy Giraldo MD at 9:48 EST ,
--- NOTE | 2023-03-27 09:30 | PN.RENAL_ITS ---
Subjective Subjective Currently on BiPAP. Urine output is okay. Objective Data Objective Data Vital Signs: Vital Signs Temp Pulse Resp BP Pulse Ox O2 Del Method O2 Flow Rate 97.8 F 71 24 H 96/62 97 Bi-pap 15 03/27/23 09:00 03/27/23 09:00 03/27/23 09:00 03/27/23 09:00 03/27/23 09:00 03/27/23 09:00 03/27/23 07:50 FiO2 40 03/27/23 09:00 Oxygen Flow Rate (L/min) 15 Oxygen Delivery Method Bi-pap Weight: 87.5 kg Body Mass Index (BMI) 27.6 Intake & Output: Intake and Output for Last 24 Hours 03/25/23 03/26/23 03/27/23 23:59 23:59 23:59 Intake Total 520 / 520 370 / 610 480 / 480 Output Total 1100 / 1100 1350 / 1750 800 / 800 Balance -580 / -580 -980 / -1140 -320 / -320 Lab / Micro Data 03/27/23 07:30 03/27/23 07:30 Labs: Laboratory Results - last 24 hr 03/26/23 11:58: POC Glucose 77 03/26/23 15:30: Ammonia 49.0 H 03/26/23 16:40: POC Glucose 336 H 03/26/23 20:23: POC Glucose 181 H 03/27/23 01:37: POC Glucose 118 H 03/27/23 05:15: POC Glucose 80 03/27/23 07:30: WBC 7.1, RBC 3.20 L, Hgb 9.3 L, Hct 29.9 L, MCV 93.4, MCH 29.1, MCHC 31.1 L, RDW Std Deviation 49.1 H, RDW Coeff of Shashank 14.4, Plt Count 293, MPV 10.4, Immature Gran % (Auto) 0.700, Neut % (Auto) 71.5 H, Lymph % (Auto) 13.9 L, [place] % (Auto) 11.8 H, Eos % (Auto) 1.8, Baso % (Auto) 0.3, Absolute Neuts (auto) 5.0, Absolute Lymphs (auto) 0.98, Nucleated RBC % 0, Sodium 135 L, Potassium 4.2, Chloride 100, Carbon Dioxide 26.0, Anion Gap 9, BUN 83 H, Creatinine 4.59 H , Estim Creat Clear Calc 14.58, Est GFR (MDRD) Af Amer 16 L, Est GFR (MDRD) Non- Af 13 L, BUN/Creatinine Ratio 18.1, Glucose 52 L, Calcium 8.7 Micro: Microbiology 03/24/23 12:05 Blood Culture (Wb) #2 - Anticubital Left Blood Culture - Preliminary No growth in 48 hours. 03/24/23 11:41 Blood Culture (Wb) - Anticubital Right Blood Culture - Preliminary No growth in 48 hours. 03/24/23 11:41 Nasal Secretion SARS-CoV-2 & FLU Antigen (Rapid) - Final 03/24/23 11:41 Mucosa - Nose RSV RNA Qualitative (PCR) - Final RSV Physical Exam Narrative no obvious distress no pallor no icterus no JVD s1s2 no murmurs lungs rales abdomen soft no organomegaly no edema no cyanosis hernández + Assessment & Plan Assessment/Plan (1) Chronic kidney disease: PLAN: Appears to have CKD stage IV, baseline creatinine around 3-3.5. Creatinine is now up to 4.8. Creatinine today is about the same. No contrast agents. Blood pressure is acceptable. Hernández catheter indwelling and the chance of retention are low. Overall does not necessarily look volume overloaded. Chest x-ray today reviewed, possible early edema. Hold off on IV fluids. Creatinine today is about the same as yesterday.
[2023-03-27] MEDS: Enoxaparin 30 MG/0.3 ML Syringe SC (10:26)
[2023-03-27] MEDS: 0.9% Saline Lock 10 ML Syringe IV ×3 (10:42→17:59)
[2023-03-27] MEDS: Dextrose 50%-Water 25 GM/50 ML DISP.SYRIN IV (11:24)
--- NOTE | 2023-03-27 12:20 | NURSING ---
Called report to Rachel Kitchen RN in icu
[2023-03-27 12:22] LABS: Bedside Glucose 132 mg/dL (74-106)
[2023-03-27 12:22] LABS: Bedside Glucose 38 mg/dL (74-106)
[2023-03-27 12:36] LABS: Allen Test Positive; Blood Gas Specimen Type ART; SITE R RADIAL
[2023-03-27 12:37] LABS: EPAP 12; IPAP 16; O2 Delivery Device Bi Pap; RR 12
[2023-03-27 12:38] LABS: Base Excess -2 mmol/L (-2 to +2); PO2 93 mmHG (75-100); Total Carbon Dioxide 27 mmol/L; pCO2 53.6 mmHg (35-45); pH 7.28 (7.35-7.45)
[2023-03-27 12:44] LABS: SO2 96 % (95-99)
[2023-03-27] MEDS: Acetaminophen 325 MG Tablet 650 MG PO (15:46)
[2023-03-27 15:48] LABS: Bedside Glucose 76 mg/dL (74-106)
--- NOTE | 2023-03-27 17:47 | EX.PCM.CONCC ---
Assessment & Plan Assessment/Plan (1) Hypoxia: (2) Acute kidney injury: (3) RSV infection: (4) Chronic kidney disease: (5) Atrial flutter: (6) Debility: (7) Diabetes mellitus, type II: QUALIFIERS: Diabetes mellitus complication status: with unspecified complications Diabetes mellitus termite renewal inspector insulin use: with termite renewal inspector use Qualified Code(s): E11.8 - Type 2 diabetes mellitus with unspecified complications; Z79.4 - manager intermediate (current) use of insulin PLAN: Plan Assessment Acute hypoxic and hypercapnic respiratory failure currently alternating BiPAP with nasal cannula RIVAS on CKD RSV pneumonia Acute metabolic encephalopathy Underlying debility with decubs HTN CAD Hypothyroidism Schizoaffective disorder Above chronic conditions complicate management Plan ?patient was transferred to the ICU for closer monitoring. He is alternating between BiPAP and nasal cannula ?Holding off diuretics given worsening kidney function ?Echo shows preserved EF 65. Patient has history of heart failure with preserved EF ?Nephrology is on board no indication for dialysis at this time ?He was started on Precedex drip given agitation which appears to be helping ? Patient's psych meds were held in the hopes to help avoid worsening mental status ? DVT prophylaxis Lovenox HPI Consult Data Date of Consult: 03/27/23 HPI Narrative Reason for Consultation: Worsening hypoxia HPI Narrative: RENATO NOONAN, is a 72 M with past medical history of bipolar disorder, CKD, debility, hypertension and diabetes. Patient presented with worsening shortness of breath he was found to have RSV pneumonia. He also has RIVAS on CKD. He has been on 2 or 3 L of oxygen via nasal cannula however that has been worsening and he required to be on BiPAP overnight. He has also been very agitated and confused. His kidney function continued to deteriorate. He was thus transferred to the ICU for closer monitoring. [facility] Medical History (Updated 03/26/23 @ 12:[address] Marquise Miranda MD) Accidental acetaminophen overdose Acute kidney injury Anxiety Arthritis Atherosclerotic heart disease of samish coronary artery without angina pectoris Back problem Bipolar disorder Cataracts, bilateral Chronic kidney disease (CKD) stage G3b/A2, moderately decreased glomerular filtration rate (GFR) between 30-44 mL/min/1.73 square meter and albuminuria creatinine ratio between 30-299 mg/g Complete heart block Debility Decubitus ulcer of left buttock, stage 3 Depression Diabetes mellitus, type II Essential hypertension Falls Gout Headache Heart failure History of ST elevation myocardial infarction (STEMI) (11/19/17) Hyperlipidemia Hypoxia Insomnia Kidney disease Neuropathy Osteoarthritis Paroxysmal atrial fibrillation Partial small bowel obstruction Recurrent UTI Schizoaffective disorder Seasonal allergies Sepsis Syncope Traumatic brain injury Home Medications multivitamin 1 tab PO DAILY HEALTH MAINTENANCE 09/07/16 [History Last Taken 12/10/21] aspirin 81 mg tablet,delayed release 81 mg PO QDAY HEART HEALTH 02/27/17 [History Last Taken 12/10/21] nitroglycerin 0.4 mg sublingual tablet (Nitrostat) 0.4 mg sublingual Q5M PRN CHEST PAIN 02/27/17 [History Last Taken 12/29/18] amlodipine 10 mg tablet 10 mg PO DAILY BLOOD PRESSURE 02/03/19 [History Last Taken 12/10/21] cholecalciferol (vitamin D3) 25 mcg (1,000 unit) capsule 1,000 unit PO DAILY SUPPLEMENT 02/03/19 [History Last Taken 12/10/21] carvedilol 6.25 mg tablet 12.5 mg PO BID HEART 03/25/20 [History Last Taken 12/10/21] levothyroxine 112 mcg tablet 112 mcg PO DAILY THYROID 09/23/20 [History Last Taken 12/10/21] paliperidone palmitate 234 mg/1.5 mL intramuscular syringe (Invega Sustenna) 234 mg IM Q28D SCHIZOPHRENIA 01/05/21 [History Last Taken 11/29/21] trazodone 50 mg tablet 50 mg PO QHS INSOMNIA 01/05/21 [History Last Taken 12/09/21] fenofibrate micronized 200 mg capsule 200 mg PO DAILY CHOLESTEROL 03/01/21 [History Last Taken 12/10/21] acetaminophen 500 mg tablet 1,000 mg PO TID PAIN 12/10/21 [History Last Taken 12/10/21] albuterol sulfate 90 mcg/actuation aerosol inhaler (Ventolin HFA) 2 puff inhalation Q4H PRN SHORTNESS OF BREATH 12/10/21 [History Last Taken 12/10/21] calcium polycarbophil 625 mg tablet (Fiber-Tabs) 625 mg PO DAILY CONSTIPATION 12/10/21 [History Last Taken 12/10/21] lamotrigine 100 mg tablet 100 mg PO DAILY MOOD 12/10/21 [History Last Taken 12/10/21] loratadine 10 mg tablet 10 mg PO DAILY RASH 12/10/21 [History Last Taken 12/10/21] oxcarbazepine 150 mg tablet 150 mg PO BID BIPOLAR DISORDER 12/10/21 [History Last Taken 12/10/21] risperidone 1 mg tablet 1.5 mg PO .HS SCHIZOPHRENIA 12/10/21 [History Last Taken 12/10/21] triamcinolone acetonide 0.1 % topical cream 1 applic topical Q12H PRN Rash 12/10/21 [History Last Taken 12/03/21] buspirone 5 mg tablet 5 mg PO BID ANXIETY 08/06/22 [History Last Taken Unknown] cetirizine 10 mg tablet 10 mg PO DAILY ALLERGIES/RASH 08/06/22 [History Last Taken Unknown] ferrous sulfate 325 mg (65 mg iron) tablet 325 mg PO DAILY SUPPLEMENT 08/06/22 [History Last Taken Unknown] guaifenesin 400 mg tablet 400 mg PO BID CONGESTION 08/06/22 [History Last Taken Unknown] sertraline 100 mg tablet (Zoloft) 100 mg PO DAILY ANXIETY/DEPRESSION 08/06/22 [History Last Taken Unknown] insulin glargine 100 unit/mL (3 mL) subcutaneous pen 38 unit subcut QHS DIABETES 08/27/22 [History Last Taken Unknown] oxcarbazepine 300 mg tablet 300 mg PO BID BIPOLAR DISORDER 08/27/22 [History Last Taken Unknown] sennosides 8.6 mg tablet 8.6 mg PO Q12H CONSTIPATION 08/27/22 [History Last Taken Unknown] furosemide 20 mg tablet (Lasix) 20 mg PO DAILY #30 tabs 08/30/22 [Rx Last Taken Unknown] gabapentin 600 mg tablet 300 mg (1/2 x 600 mg) PO BID NERVE PAIN 30 days #60 tabs 08/30/22 [Rx Last Taken Unknown] insulin lispro 100 unit/mL subcutaneous pen (Humalog KwikPen (U-100) Insulin) See Protocol subcut ACHS #0 mL 08/30/22 [Rx Last Taken Unknown] escitalopram oxalate 5 mg tablet 5 mg PO DAILY depression 03/24/23 [History Last Taken Unknown] polyethylene glycol 3350 17 gram oral powder packet 17 g PO DAILY 03/24/23 [History Last Taken Unknown] risperidone 2 mg tablet 2 mg PO DAILY schizophrina 03/24/23 [History Last Taken 03/24/23 08:00 2 mg] tamsulosin 0.4 mg capsule 0.4 mg PO .HS BPH 03/24/23 [History Last Taken Unknown] Allergy/AdvReac Type Severity Reaction Status Date / Time atorvastatin [From Lipitor] Allergy Unknown Verified 12/16/22 09:39 Penicillins Allergy Unknown Verified 12/16/22 09:39 lisinopril AdvReac Unknown unknown Verified 12/16/22 09:39 codeine AdvReac Upset Verified 12/16/22 09:39 Stomach doxycycline AdvReac Other Verified 12/16/22 09:39 lycopene AdvReac Other Verified 12/16/22 09:39 nickel AdvReac Rash Verified 12/16/22 09:39 Family History Father Arthritis Bleeding disorder Heart disease Hypertension Mother Hypertension Surgical History History of coronary artery stent placement (11/19/17) History of permanent cardiac pacemaker placement (01/08/21) Social History household members: none housing: fdc Smoking Status: Never smoker alcohol intake: never substance use type: does not use caffeine: Yes ROS ROS Narrative Unable to obtain as patient is confused Physical Exam Narrative General alert no acute distress HEENT. Normocephalic atraumatic, pupils equal and reactive Respiratory reduced air entry bilaterally, no wheezing Cardiac S1-S2, regular rate and rhythm GI abdomen soft and nontender MSK no lower extremity edema Skin no rashes Neuro moves all extremities, no facial droop Lab / Micro Data 03/27/23 07:30 03/27/23 07:30 Labs: Laboratory Results - last 24 hr 03/26/23 20:23: POC Glucose 181 H 03/27/23 01:37: POC Glucose 118 H 03/27/23 05:15: POC Glucose 80 03/27/23 07:30: WBC 7.1, RBC 3.20 L, Hgb 9.3 L, Hct 29.9 L, MCV 93.4, MCH 29.1, MCHC 31.1 L, RDW Std Deviation 49.1 H, RDW Coeff of Shashank 14.4, Plt Count 293, MPV 10.4, Immature Gran % (Auto) 0.700, Neut % (Auto) 71.5 H, Lymph % (Auto) 13.9 L, [place] % (Auto) 11.8 H, Eos % (Auto) 1.8, Baso % (Auto) 0.3, Absolute Neuts (auto) 5.0, Absolute Lymphs (auto) 0.98, Nucleated RBC % 0, Sodium 135 L, Potassium 4.2, Chloride 100, Carbon Dioxide 26.0, Anion Gap 9, BUN 83 H, Creatinine 4.59 H, Estim Creat Clear Calc 14.58, Est GFR (MDRD) Af Amer 16 L, Est GFR (MDRD) Non-Af 13 L, BUN/Creatinine Ratio 18.1, Glucose 52 L, Calcium 8.7 03/27/23 11:21: POC Glucose 38 L* 03/27/23 12:00: POC Glucose 132 H 03/27/23 15:30: POC Glucose 76 ABG Data ABG results: ABG 03/27/23 09:23 Specimen Type ART Sample Site R RADIAL pH 7.28 L Bicarbonate Actual 25.0 Total CO2 27 Base Excess -2 O2 Saturation 96 O2 % 30.0 ABG pCO2 53.6 H ABG pO2 93 Adan Test Positive Respiration Rate 12 O2 Delivery Device Bi Pap EPAP 12 IPAP 16 Imagaing Radiology Impression Chest X-Ray 03/27/23 08:46 IMPRESSION: Decreased pleural effusions with decreased bibasilar atelectasis or pneumonia. Electronically Signed: Mendy Giraldo MD at 9:48 EST , Charges/Coding Visit Charges Inpatient E&M: 89636 Init Hosp L3
[2023-03-27] MEDS: dexMEDEtomidine 400 MCG in 0.9% Normal Saline (100mL Bag) 96 ML 10.9000000000000004 MCG CONT INF (17:59)
[2023-03-27 18:45] LABS: Bedside Glucose 164 mg/dL (74-106)
[2023-03-27 22:07] LABS: Bedside Glucose 169 mg/dL (74-106)
[2023-03-28] VITALS (32 sets, daily range): BP systolic 100–143; BP diastolic 53–84; PULSE 67–75; RESP 12–221; TEMP 36.4–36.9; O2SAT 87–99; BMI 28.0
[2023-03-28] MEDS: dexMEDEtomidine 400 MCG in 0.9% Normal Saline (100mL Bag) 96 ML 19.6999999999999993 MCG CONT INF (00:37)
--- NOTE | 2023-03-28 01:56 | NURSING ---
PT RESTLESS AGAIN, RESP IN AND PLACED THE PT ON BIPAP AND HE PULLED IT OFF ASKING FOR FOOD. GIVEN WATER TO DRINK, PRECEDEX INCREASED, PT SWEARING AND YELLING FLIPPING THIS RN OFF.
[2023-03-28] MEDS: Haloperidol Lactate 5 MG/ML Vial 1 MG IV (02:19)
--- NOTE | 2023-03-28 02:25 | NURSING ---
PT SWEARING AND PULLING HIS OXYGEN OFF, IV SITE NOTICED TO HAVE INFILTRATED, NEW IV STARTED TO THE L FA, HALDOL GIVEN IV AND THEN PRECEDEX RESTARTED. PT FOCUSED ON FOOD AND EATING. MOIST NONPRODUCTIVE COUGH PRESENT. LUNGS W MOIST UPPER AIRWAY.
[2023-03-28 03:35] LABS: Bedside Glucose 109 mg/dL (74-106)
--- NOTE | 2023-03-28 03:59 | NURSING ---
pt continues to have an increased need for oxygen, currently on 9lnc hf.
--- NOTE | 2023-03-28 05:13 | NURSING ---
pt has a very moist gurgling cough, pt keeps demanding fluids, offered ice water but all he wants is soda and will not take water. pt swearing and keeps saying F-you' AND calling this rn a whore . pt refusing am labs. also refusing to wear the bipap and pulled it off again desating to 80%, pt on 9l nc hf
--- NOTE | 2023-03-28 05:35 | CPS ---
Attempted bipap twice with patient. Pt didn't tolerate both times and was only worn about 5 minutes during each trial. Pt now on 9L 90%
[2023-03-28] MEDS: dexMEDEtomidine 400 MCG in 0.9% Normal Saline (100mL Bag) 96 ML 28.3999999999999986 MCG CONT INF ×4 (05:47→17:58)
[2023-03-28 07:19] LABS: Bedside Glucose 78 mg/dL (74-106)
--- NOTE | 2023-03-28 07:21 | PN.HOSP_ITS ---
Subjective Subjective Oxygen able to be weaned down. Placed on dexmedetomidine gtt, however, has still been confused. Objective Data Objective Data Vital Signs: Vital Signs Temp Pulse Resp BP Pulse Ox O2 Del Method O2 Flow Rate 36.4 C L 72 20 H 113/75 95 High Flow 9 03/28/23 06:00 03/28/23 06:00 03/28/23 06:00 03/28/23 06:00 03/28/23 06:00 03/28/23 06:00 03/28/23 06:00 FiO2 30 03/28/23 04:43 Oxygen Flow Rate (L/min) 9 Oxygen Delivery Method High Flow Weight: 88.9 kg Body Mass Index (BMI) 28.0 Intake & Output: Intake and Output for Last 24 Hours 03/26/23 03/27/23 03/28/23 23:59 23:59 23:59 Intake Total 370 / 610 958.41 / 958.41 261.94 / 261.94 Output Total 1350 / 1750 2150 / 2150 800 / 800 Balance -980 / -1140 -1191.59 / -1191.59 -538.06 / -538.06 Lab / Micro Data 03/28/23 08:55 03/28/23 08:55 Labs: Laboratory Results - last 24 hr 03/27/23 07:30: WBC 7.1, RBC 3.20 L, Hgb 9.3 L, Hct 29.9 L, MCV 93.4, MCH 29.1, MCHC 31.1 L, RDW Std Deviation 49.1 H, RDW Coeff of Shashank 14.4, Plt Count 293, MPV 10.4, Immature Gran % (Auto) 0.700, Neut % (Auto) 71.5 H, Lymph % (Auto) 13.9 L, [place] % (Auto) 11.8 H, Eos % (Auto) 1.8, Baso % (Auto) 0.3, Absolute Neuts (auto) 5.0, Absolute Lymphs (auto) 0.98, Nucleated RBC % 0, Sodium 135 L, Potassium 4.2, Chloride 100, Carbon Dioxide 26.0, Anion Gap 9, BUN 83 H, Creatinine 4.59 H , Estim Creat Clear Calc 14.58, Est GFR (MDRD) Af Amer 16 L, Est GFR (MDRD) Non- Af 13 L, BUN/Creatinine Ratio 18.1, Glucose 52 L, Calcium 8.7 03/27/23 11:21: POC Glucose 38 L* 03/27/23 12:00: POC Glucose 132 H 03/27/23 15:30: POC Glucose 76 03/27/23 18:24: POC Glucose 164 H 03/27/23 21:45: POC Glucose 169 H 03/28/23 03:16: POC Glucose 109 H 03/28/23 06:56: POC Glucose 78 Micro: Microbiology 03/24/23 12:05 Blood Culture (Wb) #2 - Anticubital Left Blood Culture - Preliminary No growth in 48 hours. 03/24/23 11:41 Blood Culture (Wb) - Anticubital Right Blood Culture - Preliminary No growth in 48 hours. 03/24/23 11:41 Nasal Secretion SARS-CoV-2 & FLU Antigen (Rapid) - Final 03/24/23 11:41 Mucosa - Nose RSV RNA Qualitative (PCR) - Final RSV ABG Data ABG results: ABG 03/27/23 09:23 Specimen Type ART Sample Site R RADIAL pH 7.28 L Bicarbonate Actual 25.0 Total CO2 27 Base Excess -2 O2 Saturation 96 O2 % 30.0 ABG pCO2 53.6 H ABG pO2 93 Adan Test Positive Respiration Rate 12 O2 Delivery Device Bi Pap EPAP 12 IPAP 16 Radiography Diagnostic Testing: Radiology Impression Chest X-Ray 03/27/23 08:46 IMPRESSION: Decreased pleural effusions with decreased bibasilar atelectasis or pneumonia. Electronically Signed: Mendy Giraldo MD at 9:48 EST , Physical Exam Const no apparent distress Constitutional Narrative: weak voice. Orientation / Consciousness: confused Resp normal respiratory effort and no retractions Cardio regular rate, regular rhythm, S1 normal heart sound and S2 normal heart sound GI normal to inspection, nondistended, normoactive bowel sounds, soft to palpation, non-tender and non-distended Neuro Sensorium / Orientation: alert Assessment & Plan Assessment/Plan (1) Hypoxia: PLAN: Plan Acute on chronic respiratory failure hypoxic and hypercapnic * 2/2 RSV, possible complicated by Acute HFpEF as there are pleural effusions on CXR. * Avoid diuretics given RIVAS * Echo shows EF 65%. Severely enlarged LA. * ABG showed: 7.27/53.6/92.5 * Repeat CXR showed no significant change * DW CCM, transfer to ICU. * Overall improving and able to be weaned down to nasal canula. Encephalopathy: * Unclear if due to underlying infection, respiratory status and medications. * Will avoid potentiating medications. Discontinue trazodone, Lamictal, g abapentin, buspirone and risperidone. * Ammonia 49. May benefit from lactulose when able to be weaned off BiPAP. * started on dexmedetomidine gtt RIVAS: * worsening. * nephrology on consult. Chronic conditions: * Coronary artery disease s/p PCI October 2017 LAURE to mid LAD, chronic HFpEF: Echocardiogram as above. Mild MR. * Hypertension: Currently blood pressure on the lower side in systolic 90s to 10 0: Hold antihypertensive medication * Type 2 diabetes continue long-acting insulin, continue sliding scale for correctional insulin only * Hypothyroidism: Continue Synthroid, serum TSH tomorrow morning * Schizoaffective disorder: Hold medications due to somnolence. VTE prophylaxis: enoxaparin. Prognosis: guarded. Advanced care planning. Spent an additional 30 minutes where I DW patient's sister, Ann Marie Cardoso. Discussed with his current status and that he is overall improved. Also addressed CODE STATUS. Addressed that he is currently full CODE STATUS. Recommended DNR Comfort Care arrest no intubation. She was agreeable to that as his quality of life is not ideal. Charges/Coding Visit Charges Inpatient E&M: 92350 Subs Hosp L2 Procedures Hospitalists Procedures: 77931 Critical Care Addl 30 Min
[2023-03-28] MEDS: Ipratropium/Albuterol Sulfate 3 ML AMPUL.NEB INHALATION ×2 (07:34→19:50)
[2023-03-28 09:18] LABS: Absolute Lymphocyte Count 0.53 X10^3/uL (0.83-4.51); Absolute Neutrophil Count 6.8 X10^3/uL (2.0-7.7); Basophil# 0.06 X10^3/uL; Basophil% 0.7 % (0-1); Eosinophil# 0.21 X10^3/uL; Eosinophils% 2.5 % (0-5); Hematocrit 35.4 % (40-54); Hemoglobin 11.2 g/dL (13.0-16.5); Lymphocyte # 0.53 X10^3/ul (0.83-4.51); Lymphocyte % 6.4 % (19-41); Mean Corp Hgb Conc 31.6 g/dL (32-36); Mean Corpuscular Hgb 29.2 pg (27.0-32.0); Mean Corpuscular Volume 92.4 fL (80-94); Monocyte# 0.63 X10^3/uL; Monocyte% 7.6 % (0-10); NRBC Flagged by Analyzer 0 % (0-5); Neutrophil # 6.76 X10^3/uL (2.7-7.7); POSITIVE DIFFERENTIAL YES; Platelet Count 323 K/mm3 (150-450); RBC Distribution Width CV 14.2 % (11.6-14.6); RBC Distribution Width SD 48.3 fl (35.1-43.9); Red Blood Count 3.83 M/mm3 (4.6-6.2); White Blood Count 8.3 K/mm3 (4.4-11.0)
[2023-03-28 09:21] LABS: Anion Gap 5 (5-15); BUN 80 mg/dL (7-18); BUN/Creat Ratio 20.5 RATIO (10-20); Calcium,Total 9.3 mg/dL (8.5-10.1); Chloride 105 mmol/L (98-107); Differential Indicated SCAN CRITERIA MET; EST Glomerular Filtration Rate 16 mL/min (>60); Est Glom Filt Rate - Afr Amer 20 mL/min (>60); Estimated Creatinine Clearance 17.16 ml/min; Glucose 57 mg/dL (74-106); Magnesium 2.6 mg/dL (1.6-2.6); Potassium 4.4 mmol/L (3.5-5.1); Sodium Level 137 mmol/L (136-145)
--- NOTE | 2023-03-28 10:35 | CASEMGMT ---
Social Work SW participated in ICU rounds. SW then spoke w/Jewels at [facility] for clarification on if pt uses bipapp, his baseline, and POA. Pt does not use bipapp at [facility]. Pt is loud and pleasantly confused at his baseline. It does not appear they have healthcare POA papers on file but she will fax them over if they do. SW called pt's sister Em listed on face sheet as POA. [facility] has general POA papers listing her, but not healthcare POA. As per Em, pt has completed healthcare POA papers and listed her as POA, but she does not have copies. Pt's next of kin is her and their sister Ann Marie, and Em states she does not make decisions without speaking to sister Ann Marie. SW will let the staff in ICU know. VIC Rogers
[2023-03-28] MEDS: Enoxaparin 30 MG/0.3 ML Syringe SC (11:22)
[2023-03-28] MEDS: Dextrose 50%-Water 25 GM/50 ML DISP.SYRIN IV (11:35)
--- NOTE | 2023-03-28 11:53 | PCM.PN.REN ---
Documented by User: MANSI Santillan 03/28/23 12:08 Subjective Subjective Sitting up in bed. Alert to name. Objective Data Objective Data Vital Signs: Vital Signs Temp Pulse Resp BP Pulse Ox O2 Del Method O2 Flow Rate 97.6 F L 71 20 H 113/84 H 92 High Flow 8 03/28/23 08:00 03/28/23 10:00 03/28/23 10:00 03/28/23 10:00 03/28/23 10:00 03/28/23 10:00 03/28/23 10:00 FiO2 30 03/28/23 04:43 Oxygen Flow Rate (L/min) 8 Oxygen Delivery Method High Flow Weight: 88.9 kg Body Mass Index (BMI) 28.0 Intake & Output: Intake and Output for Last 24 Hours 03/26/23 03/27/23 03/28/23 23:59 23:59 23:59 Intake Total 370 / 610 958.41 / 958.41 341.59 / 341.59 Output Total 1350 / 1750 2150 / 2150 1200 / 1200 Balance -980 / -1140 -1191.59 / -1191.59 -858.41 / -858.41 Lab / Micro Data 03/28/23 08:55 03/28/23 08:55 Labs: Laboratory Results - last 24 hr 03/27/23 11:21: POC Glucose 38 L* 03/27/23 12:00: POC Glucose 132 H 03/27/23 15:30: POC Glucose 76 03/27/23 18:24: POC Glucose 164 H 03/27/23 21:45: POC Glucose 169 H 03/28/23 03:16: POC Glucose 109 H 03/28/23 06:56: POC Glucose 78 03/28/23 08:55: WBC 8.3, RBC 3.83 L, Hgb 11.2 L, Hct 35.4 L, MCV 92.4, MCH 29.2, MCHC 31.6 L, RDW Std Deviation 48.3 H, RDW Coeff of Shashank 14.2, Plt Count 323, MPV 10.0, Immature Gran % (Auto) 0.800, Neut % (Auto) 82.0 H, Lymph % (Auto) 6.4 L, [place] % (Auto) 7.6, Eos % (Auto) 2.5, Baso % (Auto) 0.7, Absolute Neuts (auto) 6.8, Absolute Lymphs (auto) 0.53 L, Nucleated RBC % 0, Sodium 137, Potassium 4.4, Chloride 105, Carbon Dioxide 27.0, Anion Gap 5, BUN 80 H, Creatinine 3.90 H, Estim Creat Clear Calc 17.16, Est GFR (MDRD) Af Amer 20 L, Est GFR (MDRD) Non-Af 16 L, BUN/Creatinine Ratio 20.5 H, Glucose 57 L, Calcium 9.3, Magnesium 2.6 Micro: Microbiology 03/24/23 12:05 Blood Culture (Wb) #2 - Anticubital Left Blood Culture - Preliminary No growth in 48 hours. 03/24/23 11:41 Blood Culture (Wb) - Anticubital Right Blood Culture - Preliminary No growth in 48 hours. 03/24/23 11:41 Nasal Secretion SARS-CoV-2 & FLU Antigen (Rapid) - Final 03/24/23 11:41 Mucosa - Nose RSV RNA Qualitative (PCR) - Final RSV ABG Data ABG results: ABG 03/27/23 09:23 Specimen Type ART Sample Site R RADIAL pH 7.28 L Bicarbonate Actual 25.0 Total CO2 27 Base Excess -2 O2 Saturation 96 O2 % 30.0 ABG pCO2 53.6 H ABG pO2 93 Adan Test Positive Respiration Rate 12 O2 Delivery Device Bi Pap EPAP 12 IPAP 16 Physical Exam Narrative Alert to name, no apparent distress s1s2 no murmurs lungs decreased breath sounds bilateral bases. abdomen soft no edema hernández + Assessment & Plan Assessment/Plan (1) Chronic kidney disease: PLAN: - CKD stage IV, baseline creatinine around 3-3.5, baseline eGFR ~17-21ml/min since ~2021. Creatinine on admission 3.2, peaked 4.62 on 03/26 and today creatinine 3.90. No contrast agents. Blood pressure is acceptable. Hernández catheter indwelling and the chance of retention is low. Overall does not necessarily look volume overloaded. Oral intake has been poor, patient had a hypoglycemic episode today. Urine output yesterday 2.1L. Checks x-ray possible early edema/or PNA. Slight improvement in respiratory status. Will give 500 mL IV fluid gentle hydration today. Discussed nephrology plan with [employer] professor patient may have had some progression of CKD as well. At this time there is no acute indication for TOOL AND DIE INSPECTOR. If patient does have some progression of CKD and needs renal replacement therapy, dialysis may not be ideal for patient given his past medical history, comorbidities, non-compliance and pulling at lines, etc. Patient resides at [facility]. POA is [place] [phone], attempted to contact [facility] for nephrology update with no success, no VM left. Documented by User: Dr. Marquise Miranda MD 03/28/23 17:14 Objective Data Lab / Micro Data 03/28/23 08:55 03/28/23 08:55 Assessment & Plan Assessment/Plan (1) Chronic kidney disease: PLAN: - CKD stage IV, baseline creatinine around 3-3.5, baseline eGFR ~17-21ml/min since ~2021. Creatinine on admission 3.2, peaked 4.62 on 03/26 and today creatinine 3.90. No contrast agents. Blood pressure is acceptable. Hernández catheter indwelling and the chance of retention is low. Overall does not necessarily look volume overloaded. Oral intake has been poor, patient had a hypoglycemic episode today. Urine output yesterday 2.1L. Checks x-ray possible early edema/or PNA. Slight improvement in respiratory status. Will give 500 mL IV fluid gentle hydration today. Discussed nephrology plan with [employer] professor patient may have had some progression of CKD as well. At this time there is no acute indication for TOOL AND DIE INSPECTOR. If patient does have some progression of CKD and needs renal replacement therapy, dialysis may not be ideal for patient given his past medical history, comorbidities, non-compliance and pulling at lines, etc. Patient resides at [facility]. POA is [place] [phone], attempted to contact [facility] for nephrology update with no success, no VM left. addendum seen and examined independently. Cr is better. urine output is improved. BP is acceptable.
[2023-03-28 12:08] LABS: Bedside Glucose 167 mg/dL (74-106)
[2023-03-28 12:08] LABS: Bedside Glucose 24 mg/dL (74-106)
[2023-03-28] MEDS: RisperiDONE 1 MG Tablet 2 MG PO (14:05)
--- NOTE | 2023-03-28 15:02 | PCM.PN.INT ---
Assessment & Plan Assessment/Plan (1) Hypoxia: (2) Acute kidney injury: (3) RSV infection: (4) Chronic kidney disease: (5) Atrial flutter: (6) Debility: (7) Diabetes mellitus, type II: QUALIFIERS: Diabetes mellitus complication status: with unspecified complications Diabetes mellitus terminal operator insulin use: with correction use Qualified Code(s): E11.8 - Type 2 diabetes mellitus with unspecified complications; Z79.4 - ad terminal makeup operator (current) use of insulin PLAN: Plan Assessment Acute hypoxic and hypercapnic respiratory failure currently 8 L via nasal cannula RIVAS on CKD RSV pneumonia Acute metabolic encephalopathy Underlying debility with decubs HTN CAD Hypothyroidism Schizoaffective disorder Above chronic conditions complicate management Plan ? Respiratory status appears to be improving with improvement of his agitation on Precedex drip. He is no longer wearing BiPAP. He is tolerating 8 L via nasal cannula ? Will restart patient's risperidone and attempt to wean Precedex ? Discussed with nephrology. Patient may eventually require hemodialysis. He continues to produce good amount of urine. However his BUN continues to be elevated which may be contributing to his agitation. Meanwhile we will start D5 LR at 60 cc an hour and attempt to further improve his kidney function. ? Concern for dysphagia, he was cleared by speech. Blood glucose checks every 6 hours given hypoglycemia. Continue D5/LR ? Wound care for decubitus ulcers ?Echo shows preserved EF 65. Patient has history of heart failure with preserved EF ? DVT prophylaxis Lovenox Subjective Subjective Patient was agitated and in the morning and verbally abusive. He still moves all extremities no facial droop. He had an episode of hypoglycemia this morning and was started on D5 LR. There is been a concern for his ability to swallow and speech evaluated him and cleared him for diet. Objective Data Objective Data Vital Signs: Vital Signs Temp Pulse Resp BP Pulse Ox O2 Del Method O2 Flow Rate 36.9 C 70 20 H 109/70 99 High Flow 8 03/28/23 14:00 03/28/23 14:00 03/28/23 14:00 03/28/23 14:00 03/28/23 14:00 03/28/23 14:00 03/28/23 14:00 FiO2 30 03/28/23 04:43 Oxygen Flow Rate (L/min) 8 Oxygen Delivery Method High Flow Weight: 88.9 kg Body Mass Index (BMI) 28.0 Intake & Output: Intake and Output for Last 24 Hours 03/26/23 03/27/23 03/28/23 23:59 23:59 23:59 Intake Total 370 / 610 958.41 / 958.41 801.59 / 801.59 Output Total 1350 / 1750 2150 / 2150 1650 / 1650 Balance -980 / -1140 -1191.59 / -1191.59 -848.41 / -848.41 Lab / Micro Data 03/28/23 08:55 03/28/23 08:55 Labs: Laboratory Results - last 24 hr 03/27/23 15:30: POC Glucose 76 03/27/23 18:24: POC Glucose 164 H 03/27/23 21:45: POC Glucose 169 H 03/28/23 03:16: POC Glucose 109 H 03/28/23 06:56: POC Glucose 78 03/28/23 08:55: WBC 8.3, RBC 3.83 L, Hgb 11.2 L, Hct 35.4 L, MCV 92.4, MCH 29.2, MCHC 31.6 L, RDW Std Deviation 48.3 H, RDW Coeff of Shashank 14.2, Plt Count 323, MPV 10.0, Immature Gran % (Auto) 0.800, Neut % (Auto) 82.0 H, Lymph % (Auto) 6.4 L, Lamar % (Auto) 7.6, Eos % (Auto) 2.5, Baso % (Auto) 0.7, Absolute Neuts (auto) 6.8, Absolute Lymphs (auto) 0.53 L, Nucleated RBC % 0, Sodium 137, Potassium 4.4, Chloride 105, Carbon Dioxide 27.0, Anion Gap 5, BUN 80 H, Creatinine 3.90 H, Estim Creat Clear Calc 17.16, Est GFR (MDRD) Af Amer 20 L, Est GFR (MDRD) Non-Af 16 L, BUN/Creatinine Ratio 20.5 H, Glucose 57 L, Calcium 9.3, Magnesium 2.6 03/28/23 11:32: POC Glucose 24 L* 03/28/23 11:48: POC Glucose 167 H Micro: Microbiology 03/24/23 12:05 Blood Culture (Wb) #2 - Anticubital Left Blood Culture - Preliminary No growth in 48 hours. 03/24/23 11:41 Blood Culture (Wb) - Anticubital Right Blood Culture - Preliminary No growth in 48 hours. 03/24/23 11:41 Nasal Secretion SARS-CoV-2 & FLU Antigen (Rapid) - Final 03/24/23 11:41 Mucosa - Nose RSV RNA Qualitative (PCR) - Final RSV Physical Exam Narrative General alert no acute distress HEENT. Normocephalic atraumatic, pupils equal and reactive Respiratory reduced air entry bilaterally, no wheezing Cardiac S1-S2, regular rate and rhythm GI abdomen soft and nontender MSK no lower extremity edema Skin no rashes Neuro moves all extremities, no facial droop Charges/Coding Visit Charges Inpatient E&M: 80070 Subs Hosp L3
[2023-03-28 16:59] LABS: Bedside Glucose 263 mg/dL (74-106)
[2023-03-28] MEDS: Insulin Lispro 100 UNIT/ML INSULN.PEN SC ×2 (17:06→21:00)
[2023-03-28] MEDS: Senna/Docusate Sodium 1 Tablet PO (21:03)
[2023-03-28 21:27] LABS: Bedside Glucose 291 mg/dL (74-106)
[2023-03-28] MEDS: Dexmedetomidine 1,000 mcg in 0.9% NS 240 mL 33.2999999999999972 MCG CONT INF (21:33)
[2023-03-29] VITALS (32 sets, daily range): BP systolic 111–157; BP diastolic 70–95; PULSE 7–94; RESP 12–27; TEMP 36.3–36.7; O2SAT 82–95; BMI 27.8
[2023-03-29] MEDS: Insulin Lispro 100 UNIT/ML INSULN.PEN SC ×3 (02:54→17:13)
[2023-03-29 03:15] LABS: Bedside Glucose 228 mg/dL (74-106)
[2023-03-29] MEDS: Dexmedetomidine 1,000 mcg in 0.9% NS 240 mL 33.2999999999999972 MCG CONT INF ×3 (04:18→19:47)
[2023-03-29 04:38] LABS: Absolute Lymphocyte Count 0.59 X10^3/uL (0.83-4.51); Basophil# 0.09 X10^3/uL; Basophil% 1.1 % (0-1); Eosinophil# 0.22 X10^3/uL; Eosinophils% 2.6 % (0-5); Hematocrit 37.2 % (40-54); Hemoglobin 11.6 g/dL (13.0-16.5); Lymphocyte # 0.59 X10^3/ul (0.83-4.51); Lymphocyte % 7.1 % (19-41); Mean Corp Hgb Conc 31.2 g/dL (32-36); Mean Corpuscular Hgb 28.6 pg (27.0-32.0); Mean Corpuscular Volume 91.9 fL (80-94); Mean Platelet Vol. 10.1 fl (6.2-12.0); Monocyte% 4.8 % (0-10); NRBC Flagged by Analyzer 0 % (0-5); Neutrophil # 6.98 X10^3/uL (2.7-7.7); POSITIVE DIFFERENTIAL YES; POSITIVE MORPHOLOGY YES; Platelet Count 345 K/mm3 (150-450); RBC Distribution Width CV 14.1 % (11.6-14.6); RBC Distribution Width SD 48.1 fl (35.1-43.9); Red Blood Count 4.05 M/mm3 (4.6-6.2); White Blood Count 8.3 K/mm3 (4.4-11.0)
[2023-03-29 04:43] LABS: Ionized Calcium 4.96 mg/dL (4.36-5.20)
[2023-03-29 04:51] LABS: Anion Gap 6 (5-15); BUN 66 mg/dL (7-18); BUN/Creat Ratio 20.6 RATIO (10-20); Calcium,Total 8.8 mg/dL (8.5-10.1); Chloride 103 mmol/L (98-107); Creatinine, Serum 3.21 mg/dL (0.70-1.30); EST Glomerular Filtration Rate 20 mL/min (>60); Est Glom Filt Rate - Afr Amer 24 mL/min (>60); Estimated Creatinine Clearance 20.85 ml/min; Glucose 187 mg/dL (74-106); Magnesium 2.3 mg/dL (1.6-2.6); Potassium 4.5 mmol/L (3.5-5.1); Sodium Level 136 mmol/L (136-145)
[2023-03-29 04:57] LABS: Differential Indicated SCAN CRITERIA MET
[2023-03-29 05:32] LABS: Differential Comment SCANNED
--- NOTE | 2023-03-29 07:23 | PN.HOSP_ITS ---
Subjective Subjective Still with periodic confusion/agitation. Objective Data Objective Data Vital Signs: Vital Signs Temp Pulse Resp BP Pulse Ox O2 Del Method O2 Flow Rate 36.6 C 72 24 H 134/86 H 93 High Flow 10 03/29/23 04:00 03/29/23 06:00 03/29/23 06:00 03/29/23 06:00 03/29/23 06:00 03/29/23 06:00 03/29/23 06:00 FiO2 50 03/29/23 02:10 Oxygen Flow Rate (L/min) 10 Oxygen Delivery Method High Flow Weight: 88.1 kg Body Mass Index (BMI) 27.8 Intake & Output: Intake and Output for Last 24 Hours 03/27/23 03/28/23 03/29/23 23:59 23:59 23:59 Intake Total 958.41 / 958.41 2463.60 / 2496.90 799.80 / 799.80 Output Total 2150 / 2150 2476 / 2476 1000 / 1000 Balance -1191.59 / -1191.59 -12.40 / 20.90 -200.20 / -200.20 Lab / Micro Data 03/29/23 04:30 03/29/23 04:30 Labs: Laboratory Results - last 24 hr 03/28/23 08:55: WBC 8.3, RBC 3.83 L, Hgb 11.2 L, Hct 35.4 L, MCV 92.4, MCH 29.2, MCHC 31.6 L, RDW Std Deviation 48.3 H, RDW Coeff of Shashank 14.2, Plt Count 323, MPV 10.0, Immature Gran % (Auto) 0.800, Neut % (Auto) 82.0 H, Lymph % (Auto) 6.4 L, Edgar % (Auto) 7.6, Eos % (Auto) 2.5, Baso % (Auto) 0.7, Absolute Neuts (auto) 6.8, Absolute Lymphs (auto) 0.53 L, Nucleated RBC % 0, Sodium 137, Potassium 4.4, Chloride 105, Carbon Dioxide 27.0, Anion Gap 5, BUN 80 H, Creatinine 3.90 H , Estim Creat Clear Calc 17.16, Est GFR (MDRD) Af Amer 20 L, Est GFR (MDRD) Non- Af 16 L, BUN/Creatinine Ratio 20.5 H, Glucose 57 L, Calcium 9.3, Magnesium 2.6 03/28/23 11:32: POC Glucose 24 L* 03/28/23 11:48: POC Glucose 167 H 03/28/23 16:34: POC Glucose 263 H 03/28/23 20:54: POC Glucose 291 H 03/29/23 02:52: POC Glucose 228 H 03/29/23 04:30: WBC 8.3, RBC 4.05 L, Hgb 11.6 L, Hct 37.2 L, MCV 91.9, MCH 28.6, MCHC 31.2 L, RDW Std Deviation 48.1 H, RDW Coeff of Shashank 14.1, Plt Count 345, MPV 10.1, Immature Gran % (Auto) 0.400, Neut % (Auto) 84.0 H, Lymph % (Auto) 7.1 L, Edgar % (Auto) 4.8, Eos % (Auto) 2.6, Baso % (Auto) 1.1 H, Absolute Neuts (auto) 7.0, Absolute Lymphs (auto) 0.59 L, Nucleated RBC % 0, Differential Comment SCANNED, Sodium 136, Potassium 4.5, Chloride 103, Carbon Dioxide 27.0, Anion Gap 6, BUN 66 H, Creatinine 3.21 H, Estim Creat Clear Calc 20.85, Est GFR (MDRD) Af Amer 24 L, Est GFR (MDRD) Non-Af 20 L, BUN/Creatinine Ratio 20.6 H, Glucose 187 H, Calcium 8.8, Magnesium 2.3 03/29/23 04:37: Ionized Calcium 4.96 Micro: Microbiology 03/24/23 12:05 Blood Culture (Wb) #2 - Anticubital Left Blood Culture - Preliminary No growth in 48 hours. 03/24/23 11:41 Blood Culture (Wb) - Anticubital Right Blood Culture - Preliminary No growth in 48 hours. 03/24/23 11:41 Nasal Secretion SARS-CoV-2 & FLU Antigen (Rapid) - Final 03/24/23 11:41 Mucosa - Nose RSV RNA Qualitative (PCR) - Final RSV Physical Exam Const Constitutional Narrative: awake. confused. weak voice. Resp normal respiratory effort and no retractions Resp Narrative: coarse BS bilaterally. Cardio regular rate, regular rhythm, S1 normal heart sound and S2 normal heart sound Neuro Sensorium / Orientation: awake and alert Assessment & Plan Assessment/Plan (1) Hypoxia: PLAN: Plan Acute on chronic respiratory failure hypoxic and hypercapnic * 2/2 RSV, possible complicated by Acute HFpEF as there are pleural effusions on CXR. * Avoid diuretics given RIVAS * Echo shows EF 65%. Severely enlarged LA. * Overall improving and able to be weaned down to nasal canula. Encephalopathy: * Unclear if due to underlying infection, respiratory status and medications; but also complicated by underlying dementia and schizoaffective disorder * Ammonia 49. May benefit from lactulose when able to be weaned off BiPAP. * started on dexmedetomidine gtt * Risperdal restarted. RIVAS: * Improving. Has been started on IVF. * nephrology on consult. Chronic conditions: * Coronary artery disease s/p PCI October 2017 LAURE to mid LAD, chronic HFpEF: Echocardiogram as above. Mild MR. * Hypertension: Currently blood pressure on the lower side in systolic 90s to 100: Hold antihypertensive medication * Type 2 diabetes continue long-acting insulin, continue sliding scale for correctional insulin only * Hypothyroidism: Continue Synthroid, serum TSH tomorrow morning * Schizoaffective disorder: Hold medications due to somnolence. VTE prophylaxis: enoxaparin. Prognosis: guarded. Code status: DNRCCA, DNI. Charges/Coding Visit Charges Inpatient E&M: 61099 Subs Hosp L2
[2023-03-29 07:55] LABS: Bedside Glucose 152 mg/dL (74-106)
[2023-03-29] MEDS: RisperiDONE 1 MG Tablet 2 MG PO (08:54)
[2023-03-29] MEDS: Carvedilol 6.25 MG Tablet PO (08:55)
[2023-03-29] MEDS: Enoxaparin 30 MG/0.3 ML Syringe SC (08:55)
[2023-03-29] MEDS: Polyethylene Glycol 3350 17 GM PACKET PO (08:55)
[2023-03-29] MEDS: Senna/Docusate Sodium 1 Tablet PO (08:55)
[2023-03-29] MEDS: Aspirin E.C. 81 MG Tablet PO (08:55)
[2023-03-29 11:58] LABS: Bedside Glucose 124 mg/dL (74-106)
[2023-03-29 12:35] LABS: Ionized Calcium Order ORDER TUBE
[2023-03-29] MEDS: Haloperidol Lactate 5 MG/ML Vial 1 MG IV (15:14)
[2023-03-29] MEDS: 0.9% Saline Lock 10 ML Syringe IV (15:16)
--- NOTE | 2023-03-29 16:52 | PN.CC_ITS ---
Assessment & Plan Assessment/Plan (1) Hypoxia: (2) Acute kidney injury: (3) RSV infection: (4) Chronic kidney disease: (5) Atrial flutter: (6) Debility: (7) Diabetes mellitus, type II: QUALIFIERS: Diabetes mellitus complication status: with unspecified complications Diabetes mellitus exterminator termite insulin use: with prison use Qualified Code(s): E11.8 - Type 2 diabetes mellitus with unspecified complications; Z79.4 - terminal operations supervisor (current) use of insulin PLAN: Plan Assessment * Acute hypoxic and hypercapnic respiratory failure currently 8 L via nasal cannula * RIAVS on CKD * RSV pneumonia * Acute metabolic encephalopathy * Underlying debility with decubs * HTN * CAD s/p PCI October 2017 LAURE to mid LAD * chronic HFpEF * Hypothyroidism * Schizoaffective disorder * Above chronic conditions complicate management Plan ? Respiratory status appears to be slightly worse today, he is on 10L NC. ? He is still on precedex ggt - Cr improved after initiating gentle hydration with D5LR, BUN down to the 60s from 80s ? Tolerating diet ? Wound care for decubitus ulcers ?Echo shows preserved EF 65. Patient has history of heart failure with preserved EF ? DVT prophylaxis Lovenox Subjective Subjective remains on precedex ggt. He refuses to wear the bipap most of the night Objective Data Objective Data Vital Signs: Vital Signs Temp Pulse Resp BP Pulse Ox O2 Del Method O2 Flow Rate 36.5 C L 72 19 H 143/93 H 89 Bi-pap 10 03/29/23 15:00 03/29/23 15:00 03/29/23 15:00 03/29/23 15:00 03/29/23 15:00 03/29/23 16:09 03/29/23 14:00 FiO2 50 03/29/23 02:10 Oxygen Flow Rate (L/min) 10 Oxygen Delivery Method Bi-pap Weight: 88.1 kg Body Mass Index (BMI) 27.8 Intake & Output: Intake and Output for Last 24 Hours 03/27/23 03/28/23 03/29/23 23:59 23:59 23:59 Intake Total 958.41 / 958.41 2463.60 / 2496.90 1357.51 / 1357.51 Output Total 2150 / 2150 2476 / 2476 1550 / 1550 Balance -1191.59 / -1191.59 -12.40 / 20.90 -192.49 / -192.49 Lab / Micro Data 03/29/23 04:30 03/29/23 04:30 Labs: Laboratory Results - last 24 hr 03/28/23 16:34: POC Glucose 263 H 03/28/23 20:54: POC Glucose 291 H 03/29/23 02:52: POC Glucose 228 H 03/29/23 04:30: WBC 8.3, RBC 4.05 L, Hgb 11.6 L, Hct 37.2 L, MCV 91.9, MCH 28.6, MCHC 31.2 L, RDW Std Deviation 48.1 H, RDW Coeff of Shashank 14.1, Plt Count 345, MPV 10.1, Immature Gran % (Auto) 0.400, Neut % (Auto) 84.0 H, Lymph % (Auto) 7.1 L, Kings % (Auto) 4.8, Eos % (Auto) 2.6, Baso % (Auto) 1.1 H, Absolute Neuts (auto) 7.0, Absolute Lymphs (auto) 0.59 L, Nucleated RBC % 0, Differential Comment SCANNED, Sodium 136, Potassium 4.5, Chloride 103, Carbon Dioxide 27.0, Anion Gap 6, BUN 66 H, Creatinine 3.21 H, Estim Creat Clear Calc 20.85, Est GFR (MDRD) Af Amer 24 L, Est GFR (MDRD) Non-Af 20 L, BUN/Creatinine Ratio 20.6 H, Glucose 187 H, Calcium 8.8, Magnesium 2.3 03/29/23 04:37: Ionized Calcium 4.96 03/29/23 07:34: POC Glucose 152 H 03/29/23 11:32: POC Glucose 124 H Micro: Microbiology 03/24/23 11:41 Blood Culture (Wb) - Anticubital Right Blood Culture - Final No growth in 5 days. 03/24/23 12:05 Blood Culture (Wb) #2 - Anticubital Left Blood Culture - Final No growth in 5 days. 03/24/23 11:41 Nasal Secretion SARS-CoV-2 & FLU Antigen (Rapid) - Final 03/24/23 11:41 Mucosa - Nose RSV RNA Qualitative (PCR) - Final RSV Physical Exam Narrative General alert no acute distress HEENT. Normocephalic atraumatic, pupils equal and reactive Respiratory reduced air entry bilaterally, no wheezing Cardiac S1-S2, regular rate and rhythm GI abdomen soft and nontender MSK no lower extremity edema Skin no rashes Neuro moves all extremities, no facial droop Charges/Coding Visit Charges
[2023-03-29 17:28] LABS: Bedside Glucose 172 mg/dL (74-106)
--- NOTE | 2023-03-29 18:06 | PN.RENAL_ITS ---
Subjective Subjective Following for acute kidney injury chronic kidney disease. The patient denies increasing shortness of breath. He remains on Airvo. There is no chest pain or nausea. Objective Data Objective Data Vital Signs: Vital Signs Temp Pulse Resp BP Pulse Ox O2 Del Method O2 Flow Rate 97.4 F L 70 19 H 141/90 H 91 Airvo 75 03/29/23 18:00 03/29/23 18:00 03/29/23 18:00 03/29/23 18:00 03/29/23 18:00 03/29/23 18:00 03/29/23 17:00 FiO2 75 03/29/23 17:35 Oxygen Flow Rate (L/min) 75 Oxygen Delivery Method Airvo Weight: 88.1 kg Body Mass Index (BMI) 27.8 Intake & Output: Intake and Output for Last 24 Hours 03/27/23 03/28/23 03/29/23 23:59 23:59 23:59 Intake Total 958.41 / 958.41 2463.60 / 2496.90 1817.41 / 1817.41 Output Total 2150 / 2150 2476 / 2476 2150 / 2150 Balance -1191.59 / -1191.59 -12.40 / 20.90 -332.59 / -332.59 Lab / Micro Data 03/29/23 04:30 03/29/23 04:30 Labs: Laboratory Results - last 24 hr 03/28/23 20:54: POC Glucose 291 H 03/29/23 02:52: POC Glucose 228 H 03/29/23 04:30: WBC 8.3, RBC 4.05 L, Hgb 11.6 L, Hct 37.2 L, MCV 91.9, MCH 28.6, MCHC 31.2 L, RDW Std Deviation 48.1 H, RDW Coeff of Shashank 14.1, Plt Count 345, MPV 10.1, Immature Gran % (Auto) 0.400, Neut % (Auto) 84.0 H, Lymph % (Auto) 7.1 L, Bullock % (Auto) 4.8, Eos % (Auto) 2.6, Baso % (Auto) 1.1 H, Absolute Neuts (auto) 7.0, Absolute Lymphs (auto) 0.59 L, Nucleated RBC % 0, Differential Comment SCANNED, Sodium 136, Potassium 4.5, Chloride 103, Carbon Dioxide 27.0, Anion Gap 6, BUN 66 H, Creatinine 3.21 H, Estim Creat Clear Calc 20.85, Est GFR (MDRD) Af Amer 24 L, Est GFR (MDRD) Non-Af 20 L, BUN/Creatinine Ratio 20.6 H, Glucose 187 H, Calcium 8.8, Magnesium 2.3 03/29/23 04:37: Ionized Calcium 4.96 03/29/23 07:34: POC Glucose 152 H 03/29/23 11:32: POC Glucose 124 H 03/29/23 17:08: POC Glucose 172 H Micro: Microbiology 03/24/23 11:41 Blood Culture (Wb) - Anticubital Right Blood Culture - Final No growth in 5 days. 03/24/23 12:05 Blood Culture (Wb) #2 - Anticubital Left Blood Culture - Final No growth in 5 days. 03/24/23 11:41 Nasal Secretion SARS-CoV-2 & FLU Antigen (Rapid) - Final 03/24/23 11:41 Mucosa - Nose RSV RNA Qualitative (PCR) - Final RSV Physical Exam Narrative Alert to name, no apparent distress s1s2 no murmurs lungs decreased breath sounds bilateral bases. abdomen soft no edema hernández + Assessment & Plan Assessment/Plan (1) Acute kidney injury: (2) Chronic kidney disease: PLAN: Plan RIVAS on CKD stage IV. Baseline creatinine around 3-3.5, baseline eGFR ~17- 21ml/min since ~2021. -Creatinine on admission 3.2, peaked 4.62 on 03/26 and today creatinine 3.21. Suspect prior RIVAS was prerenal. Renal function is now back to usual baseline for the patient. No contrast agents. Blood pressure is acceptable. Hernández catheter indwelling and the chance of retention is low. Overall does not necessarily look volume overloaded. Urine output yesterday 2.47 L. At this time there is no acute indication for UTILITY REPAIRER. If patient does have some progression of CKD and needs renal replacement therapy, dialysis may not be ideal for patient given his past medical history, comorbidities, non-compliance and pulling at lines, etc. Patient resides at [facility]. POA is Em [phone], attempted to contact Em.
[2023-03-29] MEDS: Ipratropium/Albuterol Sulfate 3 ML AMPUL.NEB INHALATION (19:30)
--- NOTE | 2023-03-29 21:27 | CPS ---
Pt Ripped off his AirVo cannula and knocked over the AirVo machine. Pt fighting to not let us place BIPAP back on and so is now on 12 LPM high Flow
--- NOTE | 2023-03-29 21:37 | NURSING ---
This RN went into patient's room when patient was desatting to 71%. I have been in room multiple times to put his oxygen back on. Patient had broken his airvo and knocked the machine onto the ground. Patient became combative while attempting to get him to wear bipap or hi-lorena. Respiratory also attempted to get patient to wear bipap. After getting patient back to 91% on hi-lorena and exiting the room, patient removed hi lorena and desatted to 70%. Precedex is maxed. I contacted sister, TERRA to give her an update on the situation. Will contact next of kin as well.
[2023-03-29 23:21] LABS: Bedside Glucose 139 mg/dL (74-106)
[2023-03-30] VITALS (16 sets, daily range): BP systolic 120–168; BP diastolic 52–91; PULSE 73–102; RESP 19–36; TEMP 36.2–36.5; O2SAT 82–98; BMI 28.4
[2023-03-30 02:36] LABS: Bedside Glucose 99 mg/dL (74-106)
[2023-03-30] MEDS: Dexmedetomidine 1,000 mcg in 0.9% NS 240 mL 33.2999999999999972 MCG CONT INF (04:20)
[2023-03-30 05:35] LABS: Anion Gap 8 (5-15); BUN 58 mg/dL (7-18); BUN/Creat Ratio 21.9 RATIO (10-20); Calcium,Total 9.3 mg/dL (8.5-10.1); Chloride 106 mmol/L (98-107); Creatinine, Serum 2.65 mg/dL (0.70-1.30); EST Glomerular Filtration Rate 25 mL/min (>60); Est Glom Filt Rate - Afr Amer 31 mL/min (>60); Estimated Creatinine Clearance 25.25 ml/min; Glucose 134 mg/dL (74-106); Potassium 5.1 mmol/L (3.5-5.1); Sodium Level 137 mmol/L (136-145)
[2023-03-30] MEDS: Haloperidol Lactate 5 MG/ML Vial 1 MG IM ×2 (05:36→14:23)
[2023-03-30 05:47] LABS: Phosphorus 3.5 mg/dL (2.5-4.9)
[2023-03-30 06:56] LABS: Bedside Glucose 119 mg/dL (74-106)
--- NOTE | 2023-03-30 07:08 | PN.HOSP_ITS ---
Subjective Subjective Placed back on AirVo. Placed back in restraints. Patient has been very combative and is taking swings at staff in the hospital. Also has lost IV access. Patient still very confused and to provide any history. Objective Data Objective Data Vital Signs: Vital Signs Temp Pulse Resp BP Pulse Ox O2 Del Method O2 Flow Rate 36.4 C L 82 19 H 154/79 H 95 Airvo 12 03/30/23 03:00 03/30/23 07:00 03/30/23 07:00 03/30/23 07:00 03/30/23 07:00 03/30/23 07:00 03/29/23 21:25 FiO2 94 03/30/23 01:40 Oxygen Flow Rate (L/min) 12 Oxygen Delivery Method Airvo Weight: 90 kg Body Mass Index (BMI) 28.4 Intake & Output: Intake and Output for Last 24 Hours 03/28/23 03/29/23 03/30/23 23:59 23:59 23:59 Intake Total 2463.60 / 2496.90 1983.61 / 2016.91 165.08 / 165.08 Output Total 2476 / 2476 2150 / 2550 400 / 400 Balance -12.40 / 20.90 -166.39 / -533.09 -234.92 / -234.92 Lab / Micro Data 03/29/23 04:30 03/30/23 05:00 Labs: Laboratory Results - last 24 hr 03/29/23 07:34: POC Glucose 152 H 03/29/23 11:32: POC Glucose 124 H 03/29/23 17:08: POC Glucose 172 H 03/29/23 23:03: POC Glucose 139 H 03/30/23 02:11: POC Glucose 99 03/30/23 05:00: WBC Cancelled, Corrected WBC Cancelled, RBC Cancelled, Hgb Cancelled, Hct Cancelled, MCV Cancelled, MCH Cancelled, MCHC Cancelled, RDW Std Deviation Cancelled, RDW Coeff of Shashank Cancelled, Plt Count Cancelled, MPV Cancelled, Immature Gran % (Auto) Cancelled, Neut % (Auto) Cancelled, Lymph % (Auto) Cancelled, [place] % (Auto) Cancelled, Eos % (Auto) Cancelled, Baso % (Auto) Cancelled, Absolute Neuts (auto) Cancelled, Absolute Lymphs (auto) Cancelled, Total Counted Cancelled, Neutrophils % (Manual) Cancelled, Band Neutrophils % Cancelled, Lymphocytes % (Manual) Cancelled, Monocytes % (Manual) Cancelled, Eosinophils % (Manual) Cancelled, Basophils % (Manual) Cancelled, Metamyelocytes % Cancelled, Myelocytes % Cancelled, Promyelocytes % Cancelled, Blast Cells % Cancelled, Plasma Cell % (Manual) Cancelled, Other Cells % Cancelled, Nucleated RBC % Cancelled, Nucleated RBCs/100 WBC Cancelled, Differential Comment Cancelled, Diff Path Review Cancelled, Hypersegmented Neuts Cancelled, Atypical Lymphocytes Cancelled, Reactive Lymphocytes Cancelled, Smudge Cells Cancelled, Toxic Granulation Cancelled, Toxic Vacuolation Cancelled, Dohle Bodies C ancelled, Ryder Rods Cancelled, Platelet Estimate Cancelled, Plt Morphology Comment Cancelled, RBC Morphology Cancelled 03/30/23 05:00: RBC Morphology Cancelled, Polychromasia Cancelled, Hypochromasia Cancelled, Poikilocytosis Cancelled, Basophilic Stippling Cancelled, Anisocyt osis Cancelled, Microcytosis Cancelled, Macrocytosis Cancelled, Spherocytes Cancelled, Sickle Cells Cancelled, Target Cells Cancelled, Tear Drop Cells Cancelled, Ovalocytes Cancelled, Stomatocytes Cancelled, Claudio-Snowflake Bodies Cancelled, [place] Cells Cancelled, Bite Cells Cancelled, Crenated Cell Cancelled, Acanthocytes (Spur) Cancelled, Rouleaux Cancelled, Schistocytes Cancelled, Sodium 137, Potassium 5.1, Chloride 106, Carbon Dioxide 23.0, Anion Gap 8, BUN 58 H, Creatinine 2.65 H, Estim Creat Clear Calc 25.25, Est GFR (MDRD) Af Amer 31 L, Est GFR (MDRD) Non-Af 25 L, BUN/Creatinine Ratio 21.9 H, Glucose 134 H, Calcium 9.3, Phosphorus 3.5, Ammonia 27.0 03/30/23 06:35: POC Glucose 119 H Micro: Microbiology 03/24/23 11:41 Blood Culture (Wb) - Anticubital Right Blood Culture - Final No growth in 5 days. 03/24/23 12:05 Blood Culture (Wb) #2 - Anticubital Left Blood Culture - Final No growth in 5 days. 03/24/23 11:41 Nasal Secretion SARS-CoV-2 & FLU Antigen (Rapid) - Final 03/24/23 11:41 Mucosa - Nose RSV RNA Qualitative (PCR) - Final RSV Physical Exam Const Constitutional Narrative: In bed. Soft strength in place. Patient is awake, on Airvo, patient keeps perseverating the same statement over and over again with his soft voice is d ifficult to ascertain what that is. Orientation / Consciousness: confused Resp normal respiratory effort and no retractions Resp Narrative: Coarse breath sounds bilaterally Cardio regular rate, regular rhythm, S1 normal heart sound and S2 normal heart sound GI normal to inspection, nondistended, normoactive bowel sounds, soft to palpation, non-tender and non-distended Neuro moves all extremities Psych Psych Narrative: Agitated Assessment & Plan Assessment/Plan (1) Hypoxia: PLAN: Plan Acute on chronic respiratory failure hypoxic and hypercapnic * 2/2 RSV, possible complicated by Acute HFpEF as there are pleural effusions on CXR. * Avoid diuretics given RIVAS * Echo shows EF 65%. Severely enlarged LA. * Overall improving and able to be weaned down to nasal canula. Encephalopathy: * Unclear if due to underlying infection, respiratory status and medications; but also complicated by underlying dementia and schizoaffective disorder * Ammonia 49. May benefit from lactulose when able to be weaned off BiPAP. * started on dexmedetomidine gtt but has since lost IV access. Will give a dose of ziprasidone 10 mg IM. RIVAS: * Improving. Has been started on IVF. * nephrology on consult. Chronic conditions: * Coronary artery disease s/p PCI October 2017 LAURE to mid LAD, chronic HFpEF: Echocardiogram as above. Mild MR. * Hypertension: Currently blood pressure on the lower side in systolic 90s to 100: Hold antihypertensive medication * Type 2 diabetes continue long-acting insulin, continue sliding scale for correctional insulin only * Hypothyroidism: Continue Synthroid, serum TSH tomorrow morning * Schizoaffective disorder: Hold medications due to somnolence. VTE prophylaxis: enoxaparin. Prognosis: guarded. Code status: DNRCCA, DNI. Changed from Full Code after discussing with his sister, Ann Marie Cardoso on 03/28. At that time, discussed guarded prognosis. Advance care planning: Spent additional 30 minutes where I again spoke with the patient's sister, Ann Marie. Explained the patient's situation that overall somethings look better including his oxygenation, overall though currently seems to be getting worse but his kidney function is improving. Explained to her that it seems unlikely the patient is actually uremic as his agitation has continued to get worse despite improving his kidney function. I did discuss with her about his current situation where he has lost IV access and if we are to continue with medical treatment we would need to give medication to better calm him down. Despite treatments that have already been instituted infected regarding last access with IV, our options are limited. Patient was not really having significant improvement with the Dexmedetomidine gtt, will give dose of ziprasidone. She was okay with that is been taken for get IV access reestablished we can resume dexmedetomidine drip when appropriate. But also mentioned hospice as he has had really no significant improvements though kidney function has improved she was open discussing with hospice further about what they are capable of providing. BTETY RN and CCM attending. Charges/Coding Visit Charges Inpatient E&M: 73115 Subs Hosp L2 Procedures Hospitalists Procedures: 11871 Critical Care Addl 30 Min
[2023-03-30] MEDS: Ziprasidone IM 20 MG/ML VIAL 10 MG IM (09:00)
--- NOTE | 2023-03-30 10:38 | NURSING ---
Hospice here, meeting with pt and family
--- NOTE | 2023-03-30 13:04 | PCM.PN.INT ---
Subjective Subjective pt will be transitioned to hospice. ICU service will sign off Objective Data Objective Data Vital Signs: Vital Signs Temp Pulse Resp BP Pulse Ox O2 Del Method O2 Flow Rate 36.2 C L 93 36 H 120/79 92 Airvo 60 03/30/23 09:25 03/30/23 09:25 03/30/23 09:25 03/30/23 09:25 03/30/23 09:25 03/30/23 09:41 03/30/23 09:25 FiO2 94 03/30/23 09:25 Oxygen Flow Rate (L/min) 60 Oxygen Delivery Method Airvo Weight: 90 kg Body Mass Index (BMI) 28.4 Intake & Output: Intake and Output for Last 24 Hours 03/28/23 03/29/23 03/30/23 23:59 23:59 23:59 Intake Total 2463.60 / 2496.90 1983.61 / 2016.91 165.08 / 165.08 Output Total 2476 / 2476 2150 / 2550 400 / 400 Balance -12.40 / 20.90 -166.39 / -533.09 -234.92 / -234.92 Lab / Micro Data 03/29/23 04:30 03/30/23 05:00 Labs: Laboratory Results - last 24 hr 03/29/23 17:08: POC Glucose 172 H 03/29/23 23:03: POC Glucose 139 H 03/30/23 02:11: POC Glucose 99 03/30/23 05:00: WBC Cancelled, Corrected WBC Cancelled, RBC Cancelled, Hgb Cancelled, Hct Cancelled, MCV Cancelled, MCH Cancelled, MCHC Cancelled, RDW Std Deviation Cancelled, RDW Coeff of Shashank Cancelled, Plt Count Cancelled, MPV Cancelled, Immature Gran % (Auto) Cancelled, Neut % (Auto) Cancelled, Lymph % (Auto) Cancelled, [place] % (Auto) Cancelled, Eos % (Auto) Cancelled, Baso % (Auto) Cancelled, Absolute Neuts (auto) Cancelled, Absolute Lymphs (auto) Cancelled, Total Counted Cancelled, Neutrophils % (Manual) Cancelled, Band Neutrophils % Cancelled, Lymphocytes % (Manual) Cancelled, Monocytes % (Manual) Cancelled, Eosinophils % (Manual) Cancelled, Basophils % (Manual) Cancelled, Metamyelocytes % Cancelled, Myelocytes % Cancelled, Promyelocytes % Cancelled, Blast Cells % Cancelled, Plasma Cell % (Manual) Cancelled, Other Cells % Cancelled, Nucleated RBC % Cancelled, Nucleated RBCs/100 WBC Cancelled, Differential Comment Cancelled, Diff Path Review Cancelled, Hypersegmented Neuts Cancelled, Atypical Lymphocytes Cancelled, Reactive Lymphocytes Cancelled, Smudge Cells Cancelled, Toxic Granulation Cancelled, Toxic Vacuolation Cancelled, Dohle Bodies Cancelled, Ryder Rods Cancelled, Platelet Estimate Cancelled, Plt Morphology Comment Cancelled, RBC Morphology Cancelled 03/30/23 05:00: RBC Morphology Cancelled, Polychromasia Cancelled, Hypochromasia Cancelled, Poikilocytosis Cancelled, Basophilic Stippling Cancelled, Anisocytosis Cancelled, Microcytosis Cancelled, Macrocytosis Cancelled, Spherocytes Cancelled, Sickle Cells Cancelled, Target Cells Cancelled, Tear Drop Cells Cancelled, Ovalocytes Cancelled, Stomatocytes Cancelled, Claudio-[place] Bodies Cancelled, Nahid Cells Cancelled, Bite Cells Cancelled, Crenated Cell Cancelled, Acanthocytes (Spur) Cancelled, Rouleaux Cancelled, Schistocytes Cancelled, Sodium 137, Potassium 5.1, Chloride 106, Carbon Dioxide 23.0, Anion Gap 8, BUN 58 H, Creatinine 2.65 H, Estim Creat Clear Calc 25.25, Est GFR (MDRD) Af Amer 31 L, Est GFR (MDRD) Non-Af 25 L, BUN/Creatinine Ratio 21.9 H, Glucose 134 H, Calcium 9.3, Phosphorus 3.5, Ammonia 27.0 03/30/23 06:35: POC Glucose 119 H Micro: Microbiology 03/24/23 11:41 Blood Culture (Wb) - Anticubital Right Blood Culture - Final No growth in 5 days. 03/24/23 12:05 Blood Culture (Wb) #2 - Anticubital Left Blood Culture - Final No growth in 5 days. 03/24/23 11:41 Nasal Secretion SARS-CoV-2 & FLU Antigen (Rapid) - Final 03/24/23 11:41 Mucosa - Nose RSV RNA Qualitative (PCR) - Final RSV
--- NOTE | 2023-03-30 13:16 | DS.PCM_ITS ---
Providers Date of Admission: 03/24/23 Primary Care Physician: Dr. Jace Fallon MD Consultations 03/24/23 15:03 Consult: Onc/Wound/software quality automation engineer Routine Comment: Reason for Consult:: nonhealing stage3 pressure ulcer lt buttock 03/25/23 14:50 Consult: Nephrology Routine Consulting Provider: Marquise Miranda Reason for Consult: RIVAS on CKD 4 EMERGENT Consult: No MD Notified: Yes Date Notified: 03/25/23 Time Notified: 14:50 Method of Notification: Text 03/27/23 10:42 Consult: Med Admin / Pulmonary Medicine Routine Consulting Provider: Lianne Caruso Reason for Consult: respiratory failure EMERGENT Consult: No Notified: Yes Date Notified: 03/27/23 Time Notified: 10:42 Method of Notification: Verbal 03/30/23 08:21 Consult: Hospice / Palliative Care Routine Consulting Provider: [facility] Reason for Consult: end of life discussion EMERGENT Consult: No MD Notified: Yes Date Notified: 03/30/23 Time Notified: 08:31 Method of Notification: Answering Service Reason For Visit: SHORTNESS OF BREATH Diagnosis Discharge Diagnosis (1) Hypoxia: Status: Acute Code(s): R09.02 - Hypoxemia Plan Acute on chronic respiratory failure hypoxic and hypercapnic * 2/2 RSV, possible complicated by Acute HFpEF as there are pleural effusions on CXR. * Avoid diuretics given RIVAS * Echo shows EF 65%. Severely enlarged LA. * Overall improving and able to be weaned down to nasal canula. Encephalopathy: * Unclear if due to underlying infection, respiratory status and medications; but also complicated by underlying dementia and schizoaffective disorder * Ammonia 49. May benefit from lactulose when able to be weaned off BiPAP. * started on dexmedetomidine gtt but has since lost IV access. Will give a dose of ziprasidone 10 mg IM. RIVAS: * Improving. Has been started on IVF. * nephrology on consult. Chronic conditions: * Coronary artery disease s/p PCI October 2017 LAURE to mid LAD, chronic HFpEF: Echocardiogram as above. Mild MR. * Hypertension: Currently blood pressure on the lower side in systolic 90s to 100: Hold antihypertensive medication * Type 2 diabetes continue long-acting insulin, continue sliding scale for correctional insulin only * Hypothyroidism: Continue Synthroid, serum TSH tomorrow morning * Schizoaffective disorder: Hold medications due to somnolence. VTE prophylaxis: enoxaparin. Prognosis: guarded. Code status: DNRCCA, DNI. Changed from Full Code after discussing with his sister, Ann Marie Cardoso on 03/28. At that time, discussed guarded prognosis. Advance care planning: Spent additional 30 minutes where I again spoke with the patient's sister, Ann Marie. Explained the patient's situation that overall somethings look better including his oxygenation, overall though currently seems to be getting worse but his kidney function is improving. Explained to her that it seems unlikely the patient is actually uremic as his agitation has continued to get worse despite improving his kidney function. I did discuss with her about his current situation where he has lost IV access and if we are to continue with medical treatment we would need to give medication to better calm him down. Despite treatments that have already been instituted infected regarding last access with IV, our options are limited. Patient was not really having significant improvement with the Dexmedetomidine gtt, will give dose of ziprasidone. She was okay with that is been taken for get IV access reestablished we can resume dexmedetomidine drip when appropriate. But also mentioned hospice as he has had really no significant improvements though kidney function has improved she was open discussing with hospice further about what they are capable of providing. BETTY RN and CCM attending. Medications at Discharge Home Medications multivitamin 1 tab PO DAILY HEALTH MAINTENANCE 09/07/16 aspirin 81 mg tablet,delayed release 81 mg PO QDAY HEART HEALTH 02/27/17 nitroglycerin 0.4 mg sublingual tablet (Nitrostat) 0.4 mg sublingual Q5M PRN CHEST PAIN 02/27/17 amlodipine 10 mg tablet 10 mg PO DAILY BLOOD PRESSURE 02/03/19 cholecalciferol (vitamin D3) 25 mcg (1,000 unit) capsule 1,000 unit PO DAILY SUPPLEMENT 02/03/19 carvedilol 6.25 mg tablet 12.5 mg PO BID HEART 03/25/20 levothyroxine 112 mcg tablet 112 mcg PO DAILY THYROID 09/23/20 paliperidone palmitate 234 mg/1.5 mL intramuscular syringe (Invega Sustenna) 234 mg IM Q28D SCHIZOPHRENIA 01/05/21 trazodone 50 mg tablet 50 mg PO QHS INSOMNIA 01/05/21 fenofibrate micronized 200 mg capsule 200 mg PO DAILY CHOLESTEROL 03/01/21 acetaminophen 500 mg tablet 1,000 mg PO TID PAIN 12/10/21 albuterol sulfate 90 mcg/actuation aerosol inhaler (Ventolin HFA) 2 puff inhalation Q4H PRN SHORTNESS OF BREATH 12/10/21 calcium polycarbophil 625 mg tablet (Fiber-Tabs) 625 mg PO DAILY CONSTIPATION 12/10/21 lamotrigine 100 mg tablet 100 mg PO DAILY MOOD 12/10/21 loratadine 10 mg tablet 10 mg PO DAILY RASH 12/10/21 oxcarbazepine 150 mg tablet 150 mg PO BID BIPOLAR DISORDER 12/10/21 risperidone 1 mg tablet 1.5 mg PO .HS SCHIZOPHRENIA 12/10/21 triamcinolone acetonide 0.1 % topical cream 1 applic topical Q12H PRN Rash 12/10/21 buspirone 5 mg tablet 5 mg PO BID ANXIETY 08/06/22 cetirizine 10 mg tablet 10 mg PO DAILY ALLERGIES/RASH 08/06/22 ferrous sulfate 325 mg (65 mg iron) tablet 325 mg PO DAILY SUPPLEMENT 08/06/22 guaifenesin 400 mg tablet 400 mg PO BID CONGESTION 08/06/22 sertraline 100 mg tablet (Zoloft) 100 mg PO DAILY ANXIETY/DEPRESSION 08/06/22 insulin glargine 100 unit/mL (3 mL) subcutaneous pen 38 unit subcut QHS DIABETES 08/27/22 oxcarbazepine 300 mg tablet 300 mg PO BID BIPOLAR DISORDER 08/27/22 sennosides 8.6 mg tablet 8.6 mg PO Q12H CONSTIPATION 08/27/22 furosemide 20 mg tablet (Lasix) 20 mg PO DAILY #30 tabs 08/30/22 gabapentin 600 mg tablet 300 mg (1/2 x 600 mg) PO BID NERVE PAIN 30 days #60 tabs 08/30/22 insulin lispro 100 unit/mL subcutaneous pen (Humalog KwikPen (U-100) Insulin) See Protocol subcut ACHS #0 mL 08/30/22 escitalopram oxalate 5 mg tablet 5 mg PO DAILY depression 03/24/23 polyethylene glycol 3350 17 gram oral powder packet 17 g PO DAILY 03/24/23 risperidone 2 mg tablet 2 mg PO DAILY schizophrina 03/24/23 tamsulosin 0.4 mg capsule 0.4 mg PO .HS BPH 03/24/23 Hospital Course Operations None Procedures None Summary of Care Provided Minutes Spent on Discharge: 35 Hospital Course: Patient presents with Chronic respiratory failure patient had RSV. Has also concerned of CHF, however patient also had acute kidney injury which did improve with some IV fluids. Complicating his stay was severe encephalopathy. Patient did require being started on dexmedetomidine drip. Despite that patient was still very agitated. So conversations were held with the patient's sister, Ann Marie. And today, did bring up hospice with her and she is agreeable to meeting with them. She met with hospice today and she and her sister are both in agreement that patient be transferred to the inpatient hospice unit for further symptom management. Weight / BMI Weight Weight: 90 kg Body Mass Index (BMI) 28.4 ABG / Lab / Microbiology Data 03/29/23 04:30 03/30/23 05:00 Laboratory: Laboratory Results - last 24 hr 03/29/23 17:08: POC Glucose 172 H 03/29/23 23:03: POC Glucose 139 H 03/30/23 02:11: POC Glucose 99 03/30/23 05:00: WBC Cancelled, Corrected WBC Cancelled, RBC Cancelled, Hgb Cancelled, Hct Cancelled, MCV Cancelled, MCH Cancelled, MCHC Cancelled, RDW Std Deviation Cancelled, RDW Coeff of Shashank Cancelled, Plt Count Cancelled, MPV Cancelled, Immature Gran % (Auto) Cancelled, Neut % (Auto) Cancelled, Lymph % (Auto) Cancelled, [place] % (Auto) Cancelled, Eos % (Auto) Cancelled, Baso % (Auto) Cancelled, Absolute Neuts (auto) Cancelled, Absolute Lymphs (auto) Cancelled, Total Counted Cancelled, Neutrophils % (Manual) Cancelled, Band Neutrophils % Cancelled, Lymphocytes % (Manual) Cancelled, Monocytes % (Manual) Cancelled, E osinophils % (Manual) Cancelled, Basophils % (Manual) Cancelled, Metamyelocytes % Cancelled, Myelocytes % Cancelled, Promyelocytes % Cancelled, Blast Cells % Cancelled, Plasma Cell % (Manual) Cancelled, Other Cells % Cancelled, Nucleated RBC % Cancelled, Nucleated RBCs/100 WBC Cancelled, Differential Comment Cancelled, Diff Path Review Cancelled, Hypersegmented Neuts Cancelled, Atypical Lymphocytes Cancelled, Reactive Lymphocytes Cancelled, Smudge Cells Cancelled, Toxic Granulation Cancelled, Toxic Vacuolation Cancelled, Dohle Bodies Cancelled, Ryder Rods Cancelled, Platelet Estimate Cancelled, Plt Morphology Comment Cancelled, RBC Morphology Cancelled 03/30/23 05:00: RBC Morphology Cancelled, Polychromasia Cancelled, Hypochromasia Cancelled, Poikilocytosis Cancelled, Basophilic Stippling Cancelled, Anisocytosis Cancelled, Microcytosis Cancelled, Macrocytosis Cancelled, Spherocytes Cancelled, Sickle Cells Cancelled, Target Cells Cancelled, Tear Drop Cells Cancelled, Ovalocytes Cancelled, Stomatocytes Cancelled, Claudio-[place] Bodies Cancelled, Nahid Cells Cancelled, Bite Cells Cancelled, Crenated Cell Cancelled, Acanthocytes (Spur) Cancelled, Rouleaux Cancelled, Schistocytes Cancelled, Sodium 137, Potassium 5.1, Chloride 106, Carbon Dioxide 23.0, Anion Gap 8, BUN 58 H, Creatinine 2.65 H, Estim Creat Clear Calc 25.25, Est GFR (MDRD) Af Amer 31 L, Est GFR (MDRD) Non-Af 25 L, BUN/Creatinine Ratio 21.9 H, Glucose 134 H, Calcium 9.3, Phosphorus 3.5, Ammonia 27.0 03/30/23 06:35: POC Glucose 119 H Microbiology: Microbiology 03/24/23 11:41 Blood Culture (Wb) - Anticubital Right Blood Culture - Final No growth in 5 days. 03/24/23 12:05 Blood Culture (Wb) #2 - Anticubital Left Blood Culture - Final No growth in 5 days. 03/24/23 11:41 Nasal Secretion SARS-CoV-2 & FLU Antigen (Rapid) - Final 03/24/23 11:41 Mucosa - Nose RSV RNA Qualitative (PCR) - Final RSV D/C Instructions Discharge Diet: No restrictions Meaningful Use Info Meaningful Use Diagnoses (Choose all that apply): None applicable Discharge Plan Admission Admit Date/Time: 03/24/23 14:14 Primary Reason for Your Visit: RSV. Encephalopathy. Attending Provider: Tony Mcdonald Primary Care Provider: Jace Fallon Consulting Providers: Anival Rogers; Eusebio Ceballos; Lianne Caruso; Marquise Miranda; Av Cook Jodi; Shruthi Kapoor; Maria Alejandra Miller DISPLAY DEPARTMENT MANAGER Discharge Orders/Prescriptions Prescriptions: No Action aspirin 81 mg tablet,delayed release (DR/EC) 81 mg PO QDAY Hold Instructions: Resume on 01/22/21. nitroglycerin [Nitrostat] 0.4 mg tablet, sublingual 0.4 mg SUBLINGUAL Q5M PRN (Reason: CHEST PAIN) amlodipine 10 mg tablet 10 mg PO DAILY cholecalciferol (vitamin D3) 1,000 unit capsule 1,000 unit PO DAILY fenofibrate micronized 200 mg capsule 200 mg PO DAILY multivitamin 1 EACH tablet 1 tab PO DAILY carvedilol 6.25 MG tablet 12.5 mg PO BID levothyroxine 112 mcg tablet 112 mcg PO DAILY trazodone 50 mg Tablet 50 mg PO QHS Invega Sustenna 234 mg/1.5 mL Syringe 234 mg IM Q28D oxcarbazepine 150 mg tablet 150 mg PO BID acetaminophen 500 mg Tablet 1,000 mg PO TID triamcinolone acetonide 0.1 % cream 1 applic TOPICAL Q12H PRN (Reason: Rash) calcium polycarbophil [Fiber-Tabs] 625 mg Tablet 625 mg PO DAILY albuterol sulfate [Ventolin HFA] 90 mcg/actuation Hfa Aerosol Inhaler 2 puff INHALATION Q4H PRN (Reason: SHORTNESS OF BREATH ) risperidone 1 mg tablet 1.5 mg PO .HS lamotrigine 100 mg tablet 100 mg PO DAILY loratadine 10 mg Tablet 10 mg PO DAILY buspirone 5 mg Tablet 5 mg PO BID cetirizine 10 mg Tablet 10 mg PO DAILY ferrous sulfate 325 mg (65 mg iron) Tablet 325 mg PO DAILY sertraline [Zoloft] 100 mg Tablet 100 mg PO DAILY guaifenesin 400 mg Tablet 400 mg PO BID sennosides 8.6 mg Tablet 8.6 mg PO Q12H oxcarbazepine 300 mg tablet 300 mg PO BID insulin glargine 100 unit/mL (3 mL) insulin pen 38 unit subcut QHS Hold Instructions: Resume on 09/18/22. Please hold until determining what dose is needed chronically is glucose has been well controlled here and sliding scale insulin furosemide [Lasix] 20 mg tablet 20 mg PO DAILY Qty: 30 0RF Rx Instructions: Start 09/01/2022 gabapentin 600 mg Tablet 300 mg PO BID 30 Days Qty: 60 0RF insulin lispro [Humalog KwikPen Insulin] 100 unit/mL Insulin Pen See Protocol subcut ACHS Qty: 0 0RF Protocol: 1. Sliding Scale Insulin Low Dosing Condition: 150-224 mg/dl = 1 unit Condition: 225-299 mg/dl = 2 units Condition: 300-374 mg/dl = 3 units Condition: 375-499 mg/dl = 4 units Condition: Greater than 449 call physician Protocol Text: - Use for Total Daily Dose of Insulin 15-27 units - Thin, elderly, renal patients LOW DOSING ALGORITHM escitalopram oxalate 5 mg tablet 5 mg PO DAILY risperidone 2 mg tablet 2 mg PO DAILY tamsulosin 0.4 mg capsule 0.4 mg PO .HS polyethylene glycol 3350 17 gram Powder In Packet 17 g PO DAILY Referrals / Follow Up: Jace Fallon MD [Primary Care Provider] - Disposition Disposition (needs filled in before D/C Order can be placed): Hospice in Medical Facility Charges/Coding Visit Charges Inpatient E&M: 57798 Disch Hosp >30min
--- NOTE | 2023-03-30 14:09 | NURSING ---
Report called to [facility], given ETA of 30 min for transport
== END 2023-03-30 15:00 | disposition hospice, inpatient (51) | DRG 189 ==
LOC: ED 13:59 → PCU 14:47 → ICU 03-27 12:18
PROVIDERS: Internal Medicine; Admitting Provider Internal Medicine; Emergency Provider Emergency Medicine; PCP Family Medicine
DX: J96.21 Acute and chronic respiratory failure with hypoxia (principal); J12.1 Respiratory syncytial virus pneumonia; I50.33 Acute on chronic diastolic (congestive) heart failure; G93.41 Metabolic encephalopathy; I48.92 Unspecified atrial flutter; J90 Pleural effusion, not elsewhere classified; I13.0 Hypertensive heart and chronic kidney disease with heart failure and stage 1 through stage 4 chronic kidney disease, or unspecified chronic kidney disease; N18.4 Chronic kidney disease, stage 4 (severe); N17.9 Acute kidney failure, unspecified; F25.9 Schizoaffective disorder, unspecified; E11.649 Type 2 diabetes mellitus with hypoglycemia without coma; F03.90 Unspecified dementia, unspecified severity, without behavioral disturbance, psychotic disturbance, mood disturbance, and anxiety; J96.22 Acute and chronic respiratory failure with hypercapnia; E11.22 Type 2 diabetes mellitus with diabetic chronic kidney disease; E11.40 Type 2 diabetes mellitus with diabetic neuropathy, unspecified; Z79.4 Long term (current) use of insulin; F31.9 Bipolar disorder, unspecified; I34.0 Nonrheumatic mitral (valve) insufficiency; E03.9 Hypothyroidism, unspecified; E78.5 Hyperlipidemia, unspecified; I25.10 Atherosclerotic heart disease of native coronary artery without angina pectoris; Z79.82 Long term (current) use of aspirin; Z95.5 Presence of coronary angioplasty implant and graft; Z95.0 Presence of cardiac pacemaker; R53.81 Other malaise; Z66 Do not resuscitate
CPT/HCPCS: 31720; 36415; 36600; 71045; 80048; 80053; 82140; 82248; 82330; 82803; 82962; 83605; 83735; 83880; 84100; 84443; 84484; 85025; 85610; 87040; 87428; 87634; 92507; 92526; 92610; 93005; 93306; 94002; 94003; 94640; 94660; 94762; 97110; 97162; 97166; 97530; 97535; 97803; 99285; J7050; A4216; J1940; J3486